=== PATIENT | female | born 1960 | race Hispanic/Latino ===

== ENCOUNTER 2017-04-23 05:21 | Inpatient (IN) | payer BC ==
--- NOTE | 2017-04-23 05:34 | ED PDOC ---
Arrival/HPI - History of Present Illness Time/Duration: 1 hour Symptom Onset: Sudden Symptom Course: Unchanged Context: Home <Maryjane Long - Last Filed: 04/25/17 07:24> <Wolf Uribe - Last Filed: 04/26/17 07:38> - General Chief Complaint: Shortness Of Breath Time Seen by Provider: 04/23/17 05:22 - History of Present Illness Narrative History of Present Illness (Text): 04/23/17 05:31 57 year old female with past medical history of Hypertension and Diabetes Diabetes presents for shortness of breath that began about an hour ago. Patient woke up with the shortness of breath. Patient states that she had a subjective fever yesterday. Patient denies having any CP, cough, abd pain, None /V/D/C, LE swelling or pain. Patient recently took a car trip to [place] and returned a few days ago. Patient denies having any hx of CAD, PE in past. She denies having any tobacco abuse, or other drug use. Meds: Zestril and Glyburide (Mercedes,Maryjane) Past Medical History - Provider Review Nursing Documentation Reviewed: Yes <Maryjane Long - Last Filed: 04/25/17 07:24> Family/Social History - Physician Review Nursing Documentation Reviewed: Yes Family/Social History: Unknown Family HX <MoizmattMaryjane - Last Filed: 04/25/17 07:24> Allergies/Home Meds <MoizMaryjane gutierrez - Last Filed: 04/25/17 07:24> <Wolf Uribe - Last Filed: 04/26/17 07:38> Allergies/Adverse Reactions: Allergies No Known Allergies Allergy (Verified 04/23/17 12:08) Home Medications: Home Meds Medication Instructions Recorded Confirmed Glimepiride [amaRYL] 4 mg PO BID 04/23/17 04/23/17 Lisinopril/Hydrochlorothiazide 1 tab PO DAILY 04/23/17 04/23/17 [Zestoretic 20-25 mg Tablet] Review of Systems - Review of Systems Constitutional: Fevers ENT: absent: Sore Throat, Rhinorrhea, Sinus Congestion Respiratory: SOB. absent: Normal, Cough, Sputum, Wheezing Cardiovascular: Normal. absent: Chest Pain, Palpitations, Edema, Calf Pain Gastrointestinal: Normal. absent: Abdominal Pain, Constipation, Diarrhea, Nausea, Vomiting Genitourinary Female: Normal. absent: Dysuria, Frequency Musculoskeletal: Normal. absent: Back Pain, Joint Swelling Skin: Normal. absent: Rash, Pruritis, Skin Lesions Neurological: Normal. absent: Headache, Dizziness, Focal Weakness Endocrine: Normal. absent: Diaphoresis, Polyuria Hemo/Lymphatic: Normal. absent: Adenopathy Psychiatric: Normal. absent: Anxiety, Depression <Maryjane Long - Last Filed: 04/25/17 07:24> Physical Exam Temperature: Afebrile Blood Pressure: Normal Pulse: Tachycardic Respiratory Rate: Tachypneic Appearance: Positive for: Uncomfortable Pain Distress: None Mental Status: Positive for: Alert and Oriented X 3 - Systems Exam Head: Present: Atraumatic, Normocephalic Mouth: Present: Moist Mucous Membranes Respiratory/Chest: Present: Clear to Auscultation, Good Air Exchange, Respiratory Distress. No: Accessory Muscle Use, Wheezes, Rales, Rhonchi Cardiovascular: Present: Regular Rate and Rhythm, Normal S1, S2. No: Murmurs, Rub, Gallop Abdomen: Present: Normal Bowel Sounds. No: Tenderness, Distention, Peritoneal Signs, Rebound, Guarding Neurological: Present: GCS=15, Speech Normal Skin: Present: Warm, Dry, Normal Color. No: Rashes Psychiatric: Present: Alert, Oriented x 3, Normal Insight, Normal Concentration <Maryjane Long - Last Filed: 04/25/17 07:24> Medical Decision Making - Lab Interpretations I have reviewed the lab results: Yes - EKG Interpretation Interpreted by ED Physician: Yes Type: 12 lead EKG <Maryjane Long - Last Filed: 04/25/17 07:24> - Lab Interpretations I have reviewed the lab results: Yes - EKG Interpretation Interpreted by ED Physician: Yes <Wolf Uribe - Last Filed: 04/26/17 07:38> ED Course and Treatment: 04/23/17 05:39 57 year old female presents with sudden onset of SOB likely 2/2 to PE vs. ACS Will check: CBC, CMP, cardiac isoenzymes, d dimer, urinalysis, EKG, chest x ray , LE US 04/25/17 07:25 Patient was signed out to Dr. Paige (Maryjane Long) In agreement with resident note, which includes further HPI details. Patient was seen and evaluated with resident, came up with plan and treatment together. 57 year old female with past medical history of hypertension and diabetes presents to the emergency department for shortness of breath that began prior to arrival. Patient woke up with shortness of breath and had a subjective fever yesterday. --EKG --Labs; BNP, Cardiac Enzymes, D-dimers --Chest X-ray --Urinalysis --US Duplex Bilaterial lower extremity pt most likely has pe , will start heparin case d/w dr rashid 04/23/17 05:53 04/26/17 07:37 (Wolf Uribe) - Lab Interpretations Narrative Lab Interpretation (Text): 04/23/17 06:46 D Dimer is noted to be 7.78 WBC 15 (Maryjane Long) Lab Results: 04/23/17 05:50 04/23/17 05:50 Lab Results 04/23/17 08:27: pO2 47, VBG pH 7.10 L*, VBG pCO2 58.0, VBG HCO3 18.0 L, VBG Total CO2 19.8 L, VBG O2 Sat (Calc) 78.0 H, VBG Base Excess -12.1 L, VBG Potassium 5.0, Glucose 716 H*, Lactate 7.2 H*, FiO2 21.0, Sodium 138.0, Chloride 85.0 L, Venous Blood Potassium 5.0 04/23/17 07:29: POC Glucose (mg/dL) > 500 H* 04/23/17 05:50: PT 11.2, INR 1.04, APTT 23.8 04/23/17 05:50: D-Dimer, Quantitative 7.78 H 04/23/17 05:50: Sodium 130 L, Potassium 3.4 L, Chloride 89 L, Carbon Dioxide 22 , Anion Gap 22 H, BUN 32 H, Creatinine 1.5 H, Est GFR ( Amer) 43, Est GFR (Non-Af Amer) 36, Random Glucose 632 H*, Calcium 8.8, Total Bilirubin 0.7, AST 112 H, ALT 81 H, Alkaline Phosphatase 83, Lactate Dehydrogenase 882 H, Total Creatine Kinase 59, Troponin I 0.30 H*, NT-Pro-B Natriuret Pep 4530 H, Total Protein 7.3, Albumin 3.5, Globulin 3.8, Albumin/Globulin Ratio 0.9 L 04/23/17 05:50: WBC 15.1 H, RBC 4.84, Hgb 14.9, Hct 42.7, MCV 88.2, MCH 30.8, MCHC 34.9, RDW 12.0, Plt Count 222, MPV 10.8 04/23/17 05:48: POC Glucose (mg/dL) 481 H* - RAD Interpretation Narrative RAD Interpretations (Text): 04/23/17 06:10 CXR: cardiology, no obvious effusions or atelectasis (Karim,Maryjane) Radiology Orders: 04/23/17 05:30 CHEST PORTABLE [RAD] Stat DUPLEX LOWER EXTRM VEIN BILAT [US] Stat 04/23/17 08:13 ANGIO CHEST PE PROTOCOL [CT] Stat 04/23/17 08:23 HEAD W/O CONTRAST [CT] Stat - EKG Interpretation EKG Interpretation (Text): 04/23/17 05:43 NSR HR 109, Normal axis, questionable ST elevation in V1-V3 (Karim,Maryjane) - Medication Orders Current Medication Orders: Acetaminophen (Tylenol 325mg Tab) 650 mg PO Q4H PRN PRN Reason: Pain, moderate (4-7) Last Admin: 04/25/17 21:45 Dose: 650 mg Re-Assess: MAR Pain/Vitals Document 04/25/17 22:45 AP (Rec: 04/25/17 23:56 AP [id number]) Pain Reassessment Is This A Pain ReAssessment? Yes Sleep Is patient sleeping during reassessment? Yes Heparin Sodium/Dextrose (Heparin 25,000 Units/250ml In D5w) 25,000 units in 250 mls @ 19.105 mls/hr IV .Q13H6M PRN; Protocol; 18 UNITS/KG/HR PRN Reason: ADJUST RATE PER PROTOCOL Last Admin: 04/26/17 04:53 Dose: 14 units/kg/hr, 14.86 mls/hr Insulin Human Regular (Humulin R Med) 0 units SC ACHS FIONA PRN Reason: Protocol Last Admin: 04/25/17 21:44 Dose: 2 units Lisinopril (Zestril) 2.5 mg PO DAILY [facility] Last Admin: 04/25/17 10:03 Dose: 2.5 mg Pantoprazole Sodium (Protonix Inj) 40 mg IVP Q12 FIONA Last Admin: 04/25/17 21:45 Dose: 40 mg Discontinued Medications Acetylcysteine (Acetylcysteine 20%) 3 ml PO STAT STA Stop: 04/23/17 08:15 Last Admin: 04/23/17 08:32 Dose: 3 ml Alteplase, Recombinant (Activase 100 Mg Inj) 9 mg IV ONCE ONE Stop: 04/23/17 09:03 Alteplase, Recombinant (Activase 100 Mg Inj) 81 mg IV ONCE ONE Stop: 04/23/17 09:03 Last Admin: 04/23/17 09:42 Dose: 81 mg Apixaban (Eliquis) 10 mg PO BID FIONA PRN Reason: Protocol Stop: 05/01/17 18:01 Last Admin: 04/24/17 19:25 Dose: Heparin Sodium (Porcine) (Heparin) 8,500 units 80 units/kg (8500 units) IV ONCE ONE PRN Reason: Protocol Stop: 04/23/17 07:15 Last Admin: 04/23/17 07:23 Dose: 8,500 units Heparin Sodium/Dextrose (Heparin 25,000 Units/250ml In D5w) 25,000 units in 250 mls @ 19.134 mls/hr IV .Q13H4M PRN; Protocol; 18 UNITS/KG/HR PRN Reason: ADJUST RATE PER PROTOCOL Last Admin: 04/24/17 03:34 Dose: 14 units/kg/hr, 14.882 mls/hr NOREPINEPHRINE BIT/0.9 % NACL (Levophed 4 Mg/ 250 Ml Ns Premixed) 4 mg in 250 mls @ 15 mls/hr IV .[id number] PRN; Protocol; 4 MCG/MIN PRN Reason: TITRATE PER MD ORDER Last Titration: 04/23/17 10:39 Dose: 8 mcg/min, 30 mls/hr Vancomycin HCl (Vancomycin 1gm) 1 gm in 250 mls @ 167 mls/hr IVPB STAT STA PRN Reason: Protocol Stop: 04/23/17 10:07 Last Admin: 04/23/17 10:29 Dose: 167 mls/hr Piperacillin Sod/Tazobactam Sod (Zosyn 3.375 In Ns 100ml) 100 mls @ 200 mls/hr IVPB STAT STA PRN Reason: Protocol Stop: 04/23/17 09:07 Last Admin: 04/23/17 10:04 Dose: 200 mls/hr Insulin Human Regular 100 (units/ Sodium Chloride) 100 mls @ 10 mls/hr IV .Q10H PRN; Protocol; 10 UNITS/HR PRN Reason: TITRATE PER MD ORDER Last Titration: 04/23/17 23:05 Dose: 0 units/hr, 0 mls/hr Insulin Detemir (Levemir) 10 unit SC ONCE ONE Stop: 04/23/17 23:46 Last Admin: 04/24/17 00:03 Dose: 10 unit Insulin Detemir (Levemir) 10 unit SC STAT ONE Stop: 04/24/17 08:48 Last Admin: 04/24/17 13:07 Dose: Insulin Detemir (Levemir) 10 unit SC ONCE ONE Stop: 04/24/17 12:29 Last Admin: 04/24/17 13:08 Dose: 10 unit Insulin Human Regular (Humulin R) 10 units IVP STAT STA Stop: 04/23/17 07:11 Last Admin: 04/23/17 07:40 Dose: 10 units Insulin Human Regular (Humulin R Med) 0 units SC ONCE ONE PRN Reason: Protocol Stop: 04/24/17 23:46 Last Admin: 04/25/17 00:04 Dose: 2 units Iodixanol (Visipaque 320 Mg/Ml 100 Ml) Confirm Administered Dose 100 ml IV .STK- MED ONE Stop: 04/23/17 08:16 Ondansetron HCl (Zofran Inj) 4 mg IVP STAT STA Stop: 04/23/17 05:55 Last Admin: 04/23/17 07:16 Dose: 4 mg Pneumococcal Polyvalent Vaccine (Pneumovax 23 Vaccine) 0.5 ml IM .ONCE ONE Stop: 04/23/17 14:56 Potassium Chloride (K-Dur 20 Meq Er Tab) 40 meq PO ONCE ONE Stop: 04/23/17 18:21 Last Admin: 04/23/17 18:39 Dose: 40 meq - PA / PERL DEVELOPER / Resident Statement / has reviewed & agrees with the documentation as recorded. / has examined the patient and agrees with the treatment plan. <Wolf Uribe - Last Filed: 04/26/17 07:38> Disposition/Present on Arrival - Present on Arrival Any Indicators Present on Arrival: No History of DVT/PE: No History of Uncontrolled Diabetes: No Urinary Catheter: No History of Decub. Ulcer: No - Disposition Have Diagnosis and Disposition been Completed?: Yes Disposition Time: 07:25 Patient Plan: Admission <Maryjane Long - Last Filed: 04/25/17 07:24> - Present on Arrival Any Indicators Present on Arrival: No - Disposition Have Diagnosis and Disposition been Completed?: Yes <Wolf Uribe - Last Filed: 04/26/17 07:38> - Disposition Diagnosis: Shortness of breath, Pulmonary embolism Disposition: HOSPITALIZED Patient Problems: Current Active Problems Problem Status Onset Shortness of breath Acute Condition: STABLE
[2017-04-23 06:20] LABS: HEMATOCRIT 42.7 % (36.0-48.0); MEAN CELL VOLUME 88.2 fL (80.0-105.0); MEAN CORPUSCULAR HEMOGLOBIN 30.8 pg (25.0-35.0); MEAN CORPUSCULAR HGB CONC 34.9 g/dl (31.0-37.0); MEAN PLATELET VOLUME 10.8 fl (7.0-11.0); WHITE BLOOD COUNT 15.1 10^3/ul (4.5-11.0)
[2017-04-23 06:35] LABS: ALB/GLOB RATIO 0.9 (1.1-1.8); BILIRUBIN,TOTAL 0.7 mg/dL (0.2-1.3); CALCIUM 8.8 mg/dL (8.4-10.5); POTASSIUM 3.4 mmol/L (3.6-5.0); TOTAL PROTEIN 7.3 g/dL (5.8-8.3)
[2017-04-23] MEDS ORDERED: Heparin 25,000units in D5W 25,000 UNITS/250 ML BAG IV PRN (06:48)
[2017-04-23 07:07] LABS: TROPONIN I 0.3 ng/mL
[2017-04-23] MEDS ORDERED: Insulin Regular 1 UNITS/0.01 ML ML IVP STA (07:10)
[2017-04-23] MEDS: Heparin 25,000units in D5W 25,000 UNITS/250 ML BAG IV PRN ×2 (07:26→14:28)
--- NOTE | 2017-04-23 07:31 | ED PDOC ---
Physical Exam Vital Signs Reviewed: Yes Vital Signs Temp Pulse Resp BP Pulse Ox 04/23/17 09:28 115 H 34 H 85/63 L 96 04/23/17 09:13 114 H 33 H 89/56 L 95 04/23/17 08:58 87/62 L 04/23/17 08:08 107 H 25 H 75/44 L 80 L 04/23/17 07:46 98.8 F 04/23/17 07:23 118 H 89/67 L 98 04/23/17 07:11 88/51 L 04/23/17 06:00 98.7 F 04/23/17 05:53 97.2 F L 123 H 28 H 101/72 94 L 04/23/17 05:40 109 H 24 99 Temperature: Afebrile Blood Pressure: Normal Pulse: Tachycardic Respiratory Rate: Normal Medical Decision Making ED Course and Treatment: 04/23/17 07:30pt endorsed to me pending labs, final dispo, imaging 1000: during emergency departcourse, pt became increasing hypotensive. concern for large pe. discussed risk benefit with pt of iv contast. pt consents to iv contrast. ct shows large pe. as pt hypotesnive, tachycardic, tachypneic, pt is candidate for tpa. pt consented for tpa. dr gardiner and dr justice bedside. accepted icu. after tpa, b/p improving, now 110 systolic. - Critical Care Critical Care Minutes: 60 minutes - Lab Interpretations Lab Results: 04/23/17 05:50 04/23/17 05:50 Lab Results 04/23/17 08:27: pO2 47, VBG pH 7.10 L*, VBG pCO2 58.0, VBG HCO3 18.0 L, VBG Total CO2 19.8 L, VBG O2 Sat (Calc) 78.0 H, VBG Base Excess -12.1 L, VBG Potassium 5.0, Glucose 716 H*, Lactate 7.2 H*, FiO2 21.0, Sodium 138.0, Chloride 85.0 L, Venous Blood Potassium 5.0 04/23/17 05:50: D-Dimer, Quantitative 7.78 H 04/23/17 05:50: Sodium 130 L, Potassium 3.4 L, Chloride 89 L, Carbon Dioxide 22 , Anion Gap 22 H, BUN 32 H, Creatinine 1.5 H, Est GFR ( Amer) 43, Est GFR (Non-Af Amer) 36, Random Glucose 632 H*, Calcium 8.8, Total Bilirubin 0.7, AST 112 H, ALT 81 H, Alkaline Phosphatase 83, Lactate Dehydrogenase 882 H, Total Creatine Kinase 59, Troponin I 0.30 H*, NT-Pro-B Natriuret Pep 4530 H, Total Protein 7.3, Albumin 3.5, Globulin 3.8, Albumin/Globulin Ratio 0.9 L 04/23/17 05:50: WBC 15.1 H, RBC 4.84, Hgb 14.9, Hct 42.7, MCV 88.2, MCH 30.8, MCHC 34.9, RDW 12.0, Plt Count 222, MPV 10.8 - RAD Interpretation Radiology Orders: 04/23/17 05:30 CHEST PORTABLE [RAD] Stat DUPLEX LOWER EXTRM VEIN BILAT [US] Stat 04/23/17 08:13 ANGIO CHEST PE PROTOCOL [CT] Stat 04/23/17 08:23 HEAD W/O CONTRAST [CT] Stat - Medication Orders Current Medication Orders: Heparin Sodium/Dextrose (Heparin 25,000 Units/250ml In D5w) 25,000 units in 250 mls @ 19.134 mls/hr IV .Q13H4M PRN; Protocol; 18 UNITS/KG/HR PRN Reason: ADJUST RATE PER PROTOCOL Last Admin: 04/23/17 07:26 Dose: 19.134 mls/hr NOREPINEPHRINE BIT/0.9 % NACL (Levophed 4 Mg/ 250 Ml Ns Premixed) 4 mg in 250 mls @ 15 mls/hr IV .[id number] PRN; Protocol; 4 MCG/MIN PRN Reason: TITRATE PER MD ORDER Insulin Human Regular 100 (units/ Sodium Chloride) 100 mls @ 10 mls/hr IV .Q10H PRN; Protocol; 10 UNITS/HR PRN Reason: TITRATE PER MD ORDER Last Admin: 04/23/17 09:53 Dose: 10 mls/hr Discontinued Medications Acetylcysteine (Acetylcysteine 20%) 3 ml PO STAT STA Stop: 04/23/17 08:15 Last Admin: 04/23/17 08:32 Dose: 3 ml Alteplase, Recombinant (Activase 100 Mg Inj) 9 mg IV ONCE ONE Stop: 04/23/17 09:03 Alteplase, Recombinant (Activase 100 Mg Inj) 81 mg IV ONCE ONE Stop: 04/23/17 09:03 Last Admin: 04/23/17 09:42 Dose: 81 mg Heparin Sodium (Porcine) (Heparin) 8,500 units 80 units/kg (8500 units) IV ONCE ONE PRN Reason: Protocol Stop: 04/23/17 07:15 Last Admin: 04/23/17 07:23 Dose: 8,500 units Vancomycin HCl (Vancomycin 1gm) 1 gm in 250 mls @ 167 mls/hr IVPB STAT STA PRN Reason: Protocol Stop: 04/23/17 10:07 Piperacillin Sod/Tazobactam Sod (Zosyn 3.375 In Ns 100ml) 100 mls @ 200 mls/hr IVPB STAT STA PRN Reason: Protocol Stop: 04/23/17 09:07 Last Admin: 04/23/17 10:04 Dose: 200 mls/hr Insulin Human Regular (Humulin R) 10 units IVP STAT STA Stop: 04/23/17 07:11 Last Admin: 04/23/17 07:40 Dose: 10 units Iodixanol (Visipaque 320 Mg/Ml 100 Ml) Confirm Administered Dose 100 ml IV .STK- MED ONE Stop: 04/23/17 08:16 Ondansetron HCl (Zofran Inj) 4 mg IVP STAT STA Stop: 04/23/17 05:55 Last Admin: 04/23/17 07:16 Dose: 4 mg Disposition/Present on Arrival - Present on Arrival Any Indicators Present on Arrival: No History of DVT/PE: No History of Uncontrolled Diabetes: No Urinary Catheter: No History of Decub. Ulcer: No History Surgical Site Infection Following: None - Disposition Have Diagnosis and Disposition been Completed?: Yes Diagnosis: Shortness of breath, Pulmonary embolism Disposition: HOSPITALIZED Disposition Time: 10:30 Patient Problems: Current Active Problems Problem Status Onset Pulmonary embolism Acute Shortness of breath Acute Condition: CRITICAL
[2017-04-23] MEDS ORDERED: Acetylcysteine 20% Inhal Soln (4ml) PO STA (08:14)
[2017-04-23] MEDS ORDERED: Iodixanol 320 MG/ML 100 ML BOTTLE IV ONE (08:15)
[2017-04-23] MEDS ORDERED: NOREPINEPHRINE BIT/0.9 % NACL 4 MG/250 ML BAG IV PRN (08:25)
[2017-04-23 08:31] LABS: VENOUS BLOOD GAS BASE EXCESS -12.1 mmol/L (0.0-2.0)
[2017-04-23] MEDS ORDERED: Piperacillin/Tazobact 3.375 gm 100 ML IVPB STA (08:38)
[2017-04-23] MEDS ORDERED: Insulin Regular 100 UNITS in Sodium Chloride 0.9% 99 ML IV PRN (08:38)
[2017-04-23] MEDS ORDERED: Vancomycin 1gm in NS 250ml 1 GM/250 ML BAG IVPB STA (08:38)
--- NOTE | 2017-04-23 08:57 | CT ---
PROCEDURE: CT HEAD WITHOUT CONTRAST. HISTORY: meek COMPARISON: None available. TECHNIQUE: Axial computed tomography images were obtained through the head/brain without intravenous contrast. Radiation dose: Total exam DLP = 803 mGy-cm. This CT exam was performed using one or more of the following dose reduction techniques: Automated exposure control, adjustment of the mA and/or kV according to patient size, and/or use of iterative reconstruction technique. FINDINGS: HEMORRHAGE: No intracranial hemorrhage. BRAIN: There is no mass effect or significant expansion of the ventricular sulcal and cisternal spaces appreciated this patient, with the midline brain anatomy appearing normal. No suspicious extra-axial fluid collection identified at this time. Artifact obscures the right-sided brainstem with remainder of the posterior fossa contents unremarkable. Consider follow-up CT or MRI. VENTRICLES: Unremarkable. No hydrocephalus. CALVARIUM: Unremarkable. PARANASAL SINUSES: Unremarkable as visualized. No significant inflammatory changes. MASTOID AIR CELLS: Unremarkable as visualized. No inflammatory changes. OTHER FINDINGS: None. IMPRESSION: No intra hemorrhage mass effect or hydrocephalus appreciated this time. Artifact from the skullbase obscures right side of the darline significantly. Follow-up MRI is advised to better evaluate the brainstem.
--- NOTE | 2017-04-23 09:02 | RAD ---
HISTORY: shortness of breath COMPARISON: No prior. FINDINGS: LUNGS: No active pulmonary disease. PLEURA: No significant pleural effusion identified, no pneumothorax apparent. CARDIOVASCULAR: Normal. OSSEOUS STRUCTURES: No significant abnormalities. VISUALIZED UPPER ABDOMEN: Normal. OTHER FINDINGS: None. IMPRESSION: No active disease.
--- NOTE | 2017-04-23 09:13 | CT ---
PROCEDURE: CT Chest with contrast (Pulmonary Angiogram) HISTORY: shortness of bretth, hypotensive COMPARISON: None available. TECHNIQUE: Axial computed tomography images were obtained of the chest in the pulmonary arterial phase of enhancement. Coronal and sagittal reformatted images were created and reviewed. Intravenous contrast dose: 100 cc of Visipaque Radiation dose: Total exam DLP = 743 mGy-cm. This CT exam was performed using one or more of the following dose reduction techniques: Automated exposure control, adjustment of the mA and/or kV according to patient size, and/or use of iterative reconstruction technique. FINDINGS: PULMONARY ARTERIES: Extensive pulmonary emboli are seen. Near occlusive emboli are seen in the left main pulmonary artery and left upper lobe. The clot fills the lower lobe branches. There is also a large clot in the proximal right pulmonary artery. There is enlargement of the right ventricle consistent with right ventricular strain. Findings were discussed with Dr. Paige at 9:10 a.m. AORTA: No acute findings. No thoracic aortic aneurysm. LUNGS: Unremarkable. No nodule, mass or pulmonary consolidation. PLEURAL SPACES: Unremarkable. No effusion or pneuomothorax. HEART: Unremarkable. No cardiomegaly. No significant pericardial effusion. LYMPH NODES: No lymphadenopathy. BONES, CHEST WALL: Unremarkable. No fracture or destructive lesion OTHER FINDINGS: Unremarkable. IMPRESSION: Extensive pulmonary emboli are seen. Near occlusive emboli are seen in the left main pulmonary artery and left upper lobe. The clot fills the lower lobe branches. There is also a large clot in the proximal right pulmonary artery. There is enlargement of the right ventricle consistent with right ventricular strain.
[2017-04-23 09:26] LABS: URINE BILIRUBIN NEGATIVE (NEGATIVE); URINE BLOOD LARGE (NEGATIVE); URINE GLUCOSE (UA) >=1000 mg/dL (NEGATIVE); URINE KETONE NEGATIVE (NEGATIVE); URINE LEUKOCYTE ESTERASE MODERATE Leu/uL (NEGATIVE); URINE PROTEIN >=300 mg/dL (<30 mg/dL); URINE UROBILINOGEN 0.2 E.U./dL (<1 E.U./dL)
[2017-04-23 09:33] LABS: URINE APPEARANCE TURBID (CLEAR); URINE COLOR YELLOW (YELLOW)
[2017-04-23 09:40] LABS: URINE RBC 0 - 2 /hpf (0-2); URINE WBC TNTC /hpf (0-6)
[2017-04-23 09:41] LABS: URINE BACTERIA SMALL (NEG)
[2017-04-23 11:41] LABS: INR 1.04 (0.93-1.08); PARTIAL THROMBOPLASTIN TIME 23.8 Seconds (23.7-30.8)
[2017-04-23 13:26] LABS: VENOUS BLOOD GAS BASE EXCESS -8.4 mmol/L (0.0-2.0); VENOUS BLOOD PH 7.27 (7.32-7.43)
--- NOTE | 2017-04-23 13:32 | CON ---
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 She presented to [facility] ER with new onset of shortness of breath that happened acutely early in the morning. Initially normotensive, her blood pressure precipitately dropped, later when she was in [facility] [place]. Bedside echocardiogram (point of care) revealed paradoxical interventricular septal motion as well as changes suggestive of right ventricular dilatation with decreased RV systolic function. Formal echocardiogram is pending. Her D-dimers were also elevated. The patient was suspected to have a massive PE and heparin was started. CAT scan with PE protocol was ordered. A liter of normal saline bolus was given and norepinephrine was ordered as well. The patient is short of breath, mildly diaphoretic and hypotensive. No nausea. No vomiting. No diarrhea. No constipation. PAST MEDICAL HISTORY: Hypertension. FAMILY HISTORY: Noncontributory. Specifically, there is no family history of clots or sudden cardiac . ALLERGIES: NKDA. SOCIAL HISTORY: No alcohol or illicit drug abuse. No tobacco smoking. The patient is not on any OCP. REVIEW OF SYSTEMS: Review of 12-point review of systems other than mentioned in history of present illness is negative. PHYSICAL EXAMINATION: VITAL SIGNS: Temperature 98.8, heart rate 118, blood pressure 89/67, oxygen saturation 94% to 98% on nasal cannula. HEENT: Head and neck atraumatic. LUNGS: Clear to auscultation bilaterally. HEART: Regular rate and rhythm. S1 and S2 normal. ABDOMEN: Soft, nontender, and nondistended. MUSCULOSKELETAL: No C/C/E. No tenderness. SKIN: Moist. PSYCHIATRIC: The patient is alert and oriented, in mild distress. NEUROLOGIC: The patient moves all extremities spontaneously. LABORATORY DATA: Sodium 130, potassium 3.4, chloride 89, carbon dioxide 22, BUN 32, creatinine 1.5, glucose 632. AST 112, ALT 81, troponin 0.3, D-dimer 7.78. WBC 15.1, hemoglobin 14.9, platelet count 222. MEDICATIONS AT HOME: Lisinopril, hydrochlorothiazide, Amaryl. IMAGING: EKG showed sinus tachycardia with atrioventricular block (? incomplete right bundle branch block). Chest x-ray; no active pulmonary disease. ASSESSMENT AND PLAN: This is a 57-year-old lady with high clinical probability of pulmonary embolism and thus obstructive shock due to pulmonary embolism. At present time, we will proceed with fluid bolus, heparin drip and norepinephrine pending CAT scan with PE protocol. Formal echocardiogram is pending; however, bedside [id number] ultrasound revealed some paradoxical interventricular septal motion with questionable right ventricular dilatation. If CAT scan were to confirm massive pulmonary embolism, consideration will be given to systemic tPA. Despite the fact that the patient has mildly elevated creatinine, with fluid and n-acetylcysteine given, the risk for MASTER will be minimized and benefits of doing CAT scan with PE protocol overweigh its risk. We will also do CAT scan of the head at the same time to rule out intracranial pathology in case if tPA needs to be given. Troponin leak may be present due to right ventricular strain. We will continue to trend troponin and BNP. We will start insulin drip, antibiotic septic workup. If CAT scan with PE protocol did not show pulmonary embolism, alternative causes for shock syndrome will be ruled out. The patient has leukocytosis and infection needs to be ruled out. As mentioned above, the patient will be on empiric antibiotics and septic workup will be initiated until infection is ruled out. Echocardiogram will allow to rule out other etiology for hypotension, even though [id number] ultrasound, there is no significant pericardial effusion and severe left ventricular systolic dysfunction. (Chest x-ray also did not reveal any pneumothorax). We will continue to trend lactic acid as well. Addendum: CT with PE protocol revelaed large clott in left main PA. tPA givem, heparin restarted afterward. Insulin drip was continued with BMP q4 hrs and accucheck q1h. Patient tolerated tPA well, shock resolved, no neuro deficit. Echo is pending ccm time 40 min Jhonny Martinez MD ISMAEL
[2017-04-23 14:55] VITALS: BMI 42.7
[2017-04-23] MEDS ORDERED: Pneumococcal 23-Valent Vaccine IM ONE (14:55)
--- NOTE | 2017-04-23 18:08 | CP.PCM.PN ---
<LISANDRO DE LEÓN - Last Filed: 04/23/17 19:46> Subjective - Date & Time of Evaluation Date of Evaluation: 04/23/17 Time of Evaluation: 07:30 - Subjective Subjective: Lisandro De León DO PGY1 - ICU Consult Note Patient is a 57 yo F with PMH of HTN and DM who presented to the ER complaining of SOB started suddently for the past hour. Admitted to prolonged immobilization driving on a [address] trip[address] Labs were significant for an elevated D-dimer, elevated troponin, hyperglycemia, glucosuria, and metabolic acidosis with an elevated anion gap. Bedside echo showed paradoxical intraventricular septum motion. On exam, she was hypotensive, tachycardic, and tachypnic. She was started on heparin drip for presumed PE and insulin drip for DKA. CTA showed a large PE. LE doppler pending. CT head showed no intracranial hemorrhage. She recieved systemic tPA with some resolution of her symptoms, and without complications. PMH: As above Meds: Lisinopril, HCTZ, Glimepiride Soc: Denies tob, etoh, illicits Fhx: Noncontributory All: NKDA ROS: +SOB, anxious, polyuria, thirst, fevers. Denies CP, abdominal pain, n/v/d/c , double vision, back pain, rash, HERRERA Objective - Vital Signs/Intake and Output Vital Signs (last 24 hours): Temp Pulse Resp BP Pulse Ox 97.5 F L 102 H 22 110/71 96 04/23/17 14:27 04/23/17 14:27 04/23/17 14:27 04/23/17 15:51 04/23/17 10:44 Intake and Output: 04/23/17 04/23/17 06:59 18:59 Intake Total 17 Balance 17 - Medications Medications: Current Medications Acetaminophen (Tylenol 325mg Tab) 650 mg PO Q4H PRN PRN Reason: Pain, moderate (4-7) Heparin Sodium/Dextrose (Heparin 25,000 Units/250ml In D5w) 25,000 units in 250 mls @ 19.134 mls/hr IV .Q13H4M PRN; Protocol; 18 UNITS/KG/HR PRN Reason: ADJUST RATE PER PROTOCOL Last Admin: 04/23/17 14:28 Dose: 18 units/kg/hr, 19.134 mls/hr NOREPINEPHRINE BIT/0.9 % NACL (Levophed 4 Mg/ 250 Ml Ns Premixed) 4 mg in 250 mls @ 15 mls/hr IV .[id number] PRN; Protocol; 4 MCG/MIN PRN Reason: TITRATE PER MD ORDER Last Titration: 04/23/17 10:39 Dose: 8 mcg/min, 30 mls/hr Insulin Human Regular 100 (units/ Sodium Chloride) 100 mls @ 10 mls/hr IV .Q10H PRN; Protocol; 10 UNITS/HR PRN Reason: TITRATE PER MD ORDER Last Titration: 04/23/17 16:00 Dose: 6 units/hr, 6 mls/hr - Labs Labs: PT 11.2 Seconds (9.9-11.8) 04/23/17 05:50 INR 1.04 (0.93-1.08) 04/23/17 05:50 APTT 60.6 Seconds (23.7-30.8) H 04/23/17 13:23 - Constitutional Appears: Non-toxic, In Acute Distress (mild) - Head Exam Head Exam: ATRAUMATIC, NORMOCEPHALIC - Eye Exam Eye Exam: EOMI, Normal appearance - ENT Exam ENT Exam: Mucous Membranes Moist - Respiratory Exam Respiratory Exam: Clear to Ausculation Bilateral. absent: Rales, Rhonchi, Wheezes - Cardiovascular Exam Cardiovascular Exam: Tachycardia, REGULAR RHYTHM, +S1, +S2 - GI/Abdominal Exam GI & Abdominal Exam: Soft, Normal Bowel Sounds. absent: Tenderness - Extremities Exam Extremities Exam: Normal Inspection - Neurological Exam Neurological Exam: Alert, Awake, Oriented x3 - Psychiatric Exam Psychiatric exam: Normal Affect, Normal Mood - Skin Skin Exam: Dry, Intact Assessment and Plan - Assessment and Plan (Free Text) Assessment: 57 yo F with PMH significant for DM and HTN admitted to ICU with DKA and s/p systemic tPA for large PE. Neuro: - AOx3, mentating normally - Continue to monitor CV: - Obstructive shock 2/2 Large PE based on CTA s/p thrombolysis with systemic tPA - On heparin drip - Hemodynamically stable, RRR - Echo pending, LE duplex pending - Maintain MAP >65 Pulm: - Currently CTA b/l, no respiratory distress, speaking full sentences, on O2 NC - On heparin drip for large PE s/p systemic tPA - Maintain O2 sat >90% GI: - NPO until AG closes - Ppx protonix Renal: - Monitor I & O - Monitor and replete lytes as needed Endo: - DKA; h/o DM, hold home antihypertensives - Continue insulin drip - Q1 accuchecks - Monitor BMP until anion gap closes - Will switch to SQ insulin when blood glucose is below 250 and then resume diet when AG closes - Monitor potassium and replete if it drops below 4 - Maintain euglycemia Hem/onc: - Anticoagulated on therapeutic heparin for PE - H/H stable, no active bleeding - Continue to monitor ID: - Afebrile, leukocytosis 15.1 - UA shows possible UTI, UCx pending - Got one dose of vanc and zosyn - Will continue to monitor Ppx: On heparin drip; Protonix Patient seen and discussed with senior resident and attending <Jhonny Martinez - Last Filed: 04/24/17 12:19> Objective - Vital Signs/Intake and Output Vital Signs (last 24 hours): Temp Pulse Resp BP Pulse Ox 98.4 F 98 H 19 95/61 L 95 04/24/17 04:21 04/24/17 07:00 04/24/17 07:00 04/24/17 07:00 04/24/17 07:00 Intake and Output: 04/24/17 04/24/17 06:59 18:59 Intake Total 1644 Output Total 1400 Balance 244 - Medications Medications: Current Medications Acetaminophen (Tylenol 325mg Tab) 650 mg PO Q4H PRN PRN Reason: Pain, moderate (4-7) Last Admin: 04/24/17 01:03 Dose: 650 mg Heparin Sodium/Dextrose (Heparin 25,000 Units/250ml In D5w) 25,000 units in 250 mls @ 19.134 mls/hr IV .Q13H4M PRN; Protocol; 18 UNITS/KG/HR PRN Reason: ADJUST RATE PER PROTOCOL Last Admin: 04/24/17 03:34 Dose: 14 units/kg/hr, 14.882 mls/hr NOREPINEPHRINE BIT/0.9 % NACL (Levophed 4 Mg/ 250 Ml Ns Premixed) 4 mg in 250 mls @ 15 mls/hr IV .[id number] PRN; Protocol; 4 MCG/MIN PRN Reason: TITRATE PER MD ORDER Last Titration: 04/23/17 10:39 Dose: 8 mcg/min, 30 mls/hr Insulin Human Regular 100 (units/ Sodium Chloride) 100 mls @ 10 mls/hr IV .Q10H PRN; Protocol; 10 UNITS/HR PRN Reason: TITRATE PER MD ORDER Last Titration: 04/23/17 23:05 Dose: 0 units/hr, 0 mls/hr Pantoprazole Sodium (Protonix Inj) 40 mg IVP Q12 FIONA Last Admin: 04/23/17 21:14 Dose: 40 mg - Labs Labs: 04/24/17 05:50 04/24/17 05:50 PT 13.5 Seconds (9.9-11.8) H 04/24/17 05:50 INR 1.25 (0.93-1.08) H 04/24/17 05:50 APTT 78.7 Seconds (23.7-30.8) H* 04/24/17 05:50 Attending/Attestation - Attestation I have personally seen and examined this patient.: Yes I have fully participated in the care of the patient.: Yes I have reviewed all pertinent clinical information, including history, physical exam and plan: Yes Notes (Text): 04/24/17 07:[address] Martinez's note
[2017-04-23] MEDS ORDERED: Potassium Chloride 20 mEq ER Tab PO ONE (18:20)
[2017-04-23 19:26] LABS: VENOUS BLOOD GAS BASE EXCESS -1.5 mmol/L (0.0-2.0)
[2017-04-23 19:33] LABS: CALCIUM 8.2 mg/dL (8.4-10.5); POTASSIUM 3.6 mmol/L (3.6-5.0)
[2017-04-23 22:51] LABS: VENOUS BLOOD GAS BASE EXCESS -2.3 mmol/L (0.0-2.0); VENOUS BLOOD PH 7.38 (7.32-7.43)
[2017-04-23] MEDS ORDERED: Insulin Detemir 100 units/ml Vial (Levemir) SC ONE (23:45)
[2017-04-24] MEDS: Heparin 25,000units in D5W 25,000 UNITS/250 ML BAG IV PRN ×3 (03:34→21:16)
[2017-04-24 06:52] LABS: ADD MANUAL DIFF? NO
[2017-04-24 07:10] LABS: BASO # 0.03 K/mm3 (0.0-2.0); BASO % 0.2 % (0.0-3.0); EOS # 0.3 (0.0-0.7); EOS % 1.9 % (1.5-5.0); GRAN % 65.6 % (50.0-68.0); HEMATOCRIT 36.3 % (36.0-48.0); LYMPH # 3.4 (1.2-3.4); MEAN CELL VOLUME 86.4 fl (80.0-105.0); MEAN CORPUSCULAR HEMOGLOBIN 30.2 pg (25.0-35.0); MEAN PLATELET VOLUME 10.1 fl (7.0-11.0); MONO # 0.8 (0.1-0.6); MONO % 6.3 % (1.0-6.0); PLATELET COUNT 169 10^3/uL (120.0-450.0); RED CELL DISTRIBUTION WIDTH 12.1 % (11.5-14.5); WHITE BLOOD COUNT 13.3 10^3/ul (4.5-11.0)
[2017-04-24 07:23] LABS: ALB/GLOB RATIO 0.9 (1.1-1.8); ALKALINE PHOSPHATASE 73 U/L (38-133); ALT/SGPT 107 U/L (7-56); AST/SGOT 92 U/L (15-39); BILIRUBIN,TOTAL 0.6 mg/dL (0.2-1.3); BLOOD UREA NITROGEN 28 mg/dL (7-21); CALCIUM 8.1 mg/dL (8.4-10.5); CARBON DIOXIDE 24 mmol/L (21-33); CHLORIDE 101 mmol/L (98-107); GFR AFRICAN-AMERICAN > 60; GLUCOSE,RANDOM 230 mg/dL (70-110); POTASSIUM 3.8 mmol/L (3.6-5.0); SODIUM 135 mmol/L (132-148); TOTAL PROTEIN 6.5 g/dL (5.8-8.3)
[2017-04-24 07:24] LABS: INR 1.25 (0.93-1.08)
[2017-04-24 07:26] LABS: PARTIAL THROMBOPLASTIN TIME 78.7 Seconds (23.7-30.8)
--- NOTE | 2017-04-24 08:20 | HP ---
HISTORY OF PRESENT ILLNESS: The patient is a 57-year-old female, who presented to the emergency room complaining of some shortness of breath that happened acutely early in the morning. The patient had been driving a car from [place] for about 14 hours prior to her arrival in [place]. While in the emergency room, the patient became more short of breath and dropped her blood pressure with a systolic in the mid 70s. She does have a history of prior hypertension. PAST MEDICAL HISTORY: Hypertension. FAMILY HISTORY: Noncontributory. ALLERGIES: NO KNOWN ALLERGIES. SOCIAL HISTORY: The patient does not smoke or use illicit drugs. PHYSICAL EXAMINATION VITAL SIGNS: Pulse rate of 115, blood pressure 85/63 with subsequently drop in the systolic of 77, respiratory rate of 34 with an O2 saturation of 96% on nasal canal. HEENT: PERRLA. EOMI. No icterus is present. NECK: Supple with a full range of motion. There is no jugular venous distention. LUNGS: Clear to auscultation and percussion bilaterally. HEART: Regular rate and rhythm. No murmurs, rubs, or gallops. ABDOMEN: Soft. It is nontender. There is no organomegaly. Bowel sounds are normoactive. EXTREMITIES: The extremities show no deformities or edema. NEUROLOGICAL: The patient is intact. LABORATORY DATA: The patient was sent for a CAT scan of the chest emergently and this in fact revealed a large pulmonary embolus. CURRENT DIAGNOSES: 1. Pulmonary embolism. 2. Hypertension. PLAN: We will stabilize the patient. Have Dr. Florian Nguyễn, cardiology see the patient for further management. Obi Nguyen MD
[2017-04-24] MEDS ORDERED: Insulin Detemir 100 units/ml Vial (Levemir) SC ONE ×2 (08:47→12:28)
--- NOTE | 2017-04-24 13:33 | CON ---
DATE: 04/24/2017 HISTORY OF PRESENT ILLNESS: The patient is a 57-year-old woman who presents with marked dyspnea. She was transiently hypotensive in the emergency room. She was found to have an acute pulmonary embolism. PAST MEDICAL HISTORY: Notable for diabetes mellitus and hypertension. Her acute pulmonary embolism was accompanied by swelling of the lower extremities after a long car ride down to [place]. No previous cardiac history. 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 FAMILY HISTORY: Notable for an uncle with history of cardiac disease. REVIEW OF SYSTEMS: A 14-point review of systems was reviewed. No angina noted. Swelling of one lower extremity was noted and dyspnea has improved since emergency room. In the emergency room, the patient received thrombolytics and is currently on IV heparin. She was found to have borderline elevated troponin which I was called to see. PHYSICAL EXAMINATION: VITAL SIGNS: Blood pressure is 124/68 with heart rate of 100. NECK: Negative JVD. LUNGS: Without rales. HEART: Reveal S1, S2. EXTREMITIES: Without edema. EKG shows sinus tachycardia with an incomplete left bundle-branch block. LABORATORY DATA: Reveal BUN and creatinine that are unremarkable. LFTs are mildly elevated. The hemoglobin is 12.7 with a troponin of 0.30. IMPRESSION: 1. Acute pulmonary embolism. 2. Transient hypotension which was treated with thrombolytics and as well as pressors. 3. Diabetes mellitus. 4. Hypertension. 5. Dyspnea. 6. The mildly elevated troponins are likely from her acute pulmonary embolism. Given these findings, there is no cause for acute cardiac intervention at this time. We will obtain an echocardiogram to review her LV function as well as her right ventricular pressures. I agree with aggressive IV hydration. Florian Nguyễn MD
--- NOTE | 2017-04-24 16:18 | CP.PCM.PN ---
<LISANDRO DE LEÓN - Last Filed: 04/24/17 16:13> Subjective - Date & Time of Evaluation Date of Evaluation: 04/24/17 Time of Evaluation: 06:45 - Subjective Subjective: Lisandro De León DO PGY1 - ICU Progress Note Patient seen and examined at bedside. Overnight, she was switched to SQ insulin , now off insulin drip. Nurses also reported a persistent vaginal bleed, mild. Patient is seen resting comfortably, breathing comfortably and speaking in full sentences on O2 by nasal cannula. Denies CP, SOB, cough, wheeze, n/v/d/c, abdominal pain, leg pain. Objective - Vital Signs/Intake and Output Vital Signs (last 24 hours): Temp Pulse Resp BP Pulse Ox 98.4 F 98 H 19 95/61 L 95 04/24/17 04:21 04/24/17 07:00 04/24/17 07:00 04/24/17 07:00 04/24/17 07:00 Intake and Output: 04/24/17 04/24/17 06:59 18:59 Intake Total 1644 Output Total 1400 Balance 244 - Medications Medications: Current Medications Acetaminophen (Tylenol 325mg Tab) 650 mg PO Q4H PRN PRN Reason: Pain, moderate (4-7) Last Admin: 04/24/17 15:16 Dose: 650 mg Apixaban (Eliquis) 10 mg PO BID FIONA PRN Reason: Protocol Stop: 05/01/17 18:01 NOREPINEPHRINE BIT/0.9 % NACL (Levophed 4 Mg/ 250 Ml Ns Premixed) 4 mg in 250 mls @ 15 mls/hr IV .[id number] PRN; Protocol; 4 MCG/MIN PRN Reason: TITRATE PER MD ORDER Last Titration: 04/23/17 10:39 Dose: 8 mcg/min, 30 mls/hr Insulin Human Regular 100 (units/ Sodium Chloride) 100 mls @ 10 mls/hr IV .Q10H PRN; Protocol; 10 UNITS/HR PRN Reason: TITRATE PER MD ORDER Last Titration: 04/23/17 23:05 Dose: 0 units/hr, 0 mls/hr Pantoprazole Sodium (Protonix Inj) 40 mg IVP Q12 FIONA Last Admin: 04/24/17 12:14 Dose: 40 mg - Labs Labs: 04/24/17 05:50 04/24/17 05:50 PT 13.5 Seconds (9.9-11.8) H 04/24/17 05:50 INR 1.25 (0.93-1.08) H 04/24/17 05:50 APTT 59.5 Seconds (23.7-30.8) H 04/24/17 13:52 - Constitutional Appears: Non-toxic, No Acute Distress - Head Exam Head Exam: ATRAUMATIC, NORMOCEPHALIC - Eye Exam Eye Exam: EOMI, Normal appearance, PERRL - ENT Exam ENT Exam: Mucous Membranes Moist, Normal Exam - Neck Exam Neck Exam: Full ROM. absent: Lymphadenopathy, Meningismus - Respiratory Exam Respiratory Exam: Clear to Ausculation Bilateral. absent: Rales, Rhonchi, Wheezes - Cardiovascular Exam Cardiovascular Exam: RRR, +S1, +S2 - GI/Abdominal Exam GI & Abdominal Exam: Soft, Normal Bowel Sounds. absent: Tenderness - Extremities Exam Extremities Exam: Pedal Edema (Trace). absent: Calf Tenderness - Neurological Exam Neurological Exam: Alert, Awake, Oriented x3 Neuro motor strength exam: Left Upper Extremity: 5, Right Upper Extremity: 5, Left Lower Extremity: 5, Right Lower Extremity: 5 - Psychiatric Exam Psychiatric exam: Normal Affect, Normal Mood - Skin Skin Exam: Dry, Intact Additional comments: Superficial thrombophlebitis (ecchymosis) noted on left distal forearm. Assessment and Plan - Assessment and Plan (Free Text) Assessment: 57 yo F with PMH significant for DM and HTN admitted to ICU with DKA and s/p systemic tPA for large PE. Currently stable, DKA resolved, shock state resolved. Will transfer today. Neuro: - AOx3, mentating normally - Continue to monitor CV: - Previously obstructive shock 2/2 Large PE (provoked) based on CTA s/p thrombolysis with systemic tPA - will d/c heparin drip and start PO anticoagulation with eliquis 10mg x7d then 5mg x3-6 months - Hemodynamically stable, RRR - Echo complete, read pending. LE duplex complete, read pending - Maintain MAP >65 Pulm: - Currently CTA b/l, no respiratory distress, speaking full sentences, on O2 NC - Complete heparin drip for 12 hours then switch to PO eliquis, s/p systemic tPA - Maintain O2 sat >90% GI: - AG closed, start heart healthy, carb consistent diet - Ppx protonix Renal: - Monitor I & O - Monitor and replete lytes as needed Endo: - Previously DKA, gap closed overnight; h/o DM, hold home antihypertensives - Off insulin drip, start SQ insulin and sliding scale - ACHS accuchecks - Maintain euglycemia Hem/onc: - Anticoagulated on therapeutic heparin for PE, will switch to PO eliquis - H/H dropped, though still stable and wnl. Possibly due to dilutional effect in addition to active vaginal bleed, which itself is likely 2/2 to anticoagulation s/p tPA and on heparin drip. No hematuria in [place]. Will sign this out to primary team - Continue to monitor ID: - Afebrile, leukocytosis 13.3, improved since yesterday, likely stress response. - UA shows possible UTI, UCx pending - Got one dose of vanc and zosyn - Will continue to monitor Ppx: On heparin drip; Protonix Will transfer today Patient seen and discussed with senior resident and attending <Jhonny Martinez - Last Filed: 04/25/17 11:16> Objective - Vital Signs/Intake and Output Vital Signs (last 24 hours): Temp Pulse Resp BP Pulse Ox 97.9 F 99 H 17 113/71 99 04/25/17 04:00 04/25/17 10:03 04/25/17 06:00 04/25/17 10:03 04/25/17 06:00 Intake and Output: 04/25/17 04/25/17 06:59 18:59 Intake Total 1050 Output Total 960 Balance 90 - Medications Medications: Current Medications Acetaminophen (Tylenol 325mg Tab) 650 mg PO Q4H PRN PRN Reason: Pain, moderate (4-7) Last Admin: 04/25/17 03:58 Dose: 650 mg NOREPINEPHRINE BIT/0.9 % NACL (Levophed 4 Mg/ 250 Ml Ns Premixed) 4 mg in 250 mls @ 15 mls/hr IV .[id number] PRN; Protocol; 4 MCG/MIN PRN Reason: TITRATE PER MD ORDER Last Titration: 04/23/17 10:39 Dose: 8 mcg/min, 30 mls/hr Heparin Sodium/Dextrose (Heparin 25,000 Units/250ml In D5w) 25,000 units in 250 mls @ 19.105 mls/hr IV .Q13H6M PRN; Protocol; 18 UNITS/KG/HR PRN Reason: ADJUST RATE PER PROTOCOL Last Admin: 04/24/17 21:16 Dose: 14 units/kg/hr, 14.86 mls/hr Insulin Human Regular (Humulin R Med) 0 units SC ACHS FIONA PRN Reason: Protocol Last Admin: 04/25/17 10:04 Dose: 5 units Lisinopril (Zestril) 2.5 mg PO DAILY [facility] Last Admin: 04/25/17 10:03 Dose: 2.5 mg Pantoprazole Sodium (Protonix Inj) 40 mg IVP Q12 [facility] Last Admin: 04/25/17 10:04 Dose: 40 mg - Labs Labs: 04/25/17 06:00 04/25/17 06:00 PT 12.5 Seconds (9.9-11.8) H 04/25/17 06:00 INR 1.16 (0.93-1.08) H 04/25/17 06:00 APTT 74.9 Seconds (23.7-30.8) H* 04/25/17 06:00 Attending/Attestation - Attestation I have personally seen and examined this patient.: Yes I have fully participated in the care of the patient.: Yes I have reviewed all pertinent clinical information, including history, physical exam and plan: Yes Notes (Text): 04/25/17 11:11 57 yo female with resolved obstructive shock due to massive PE, s/p tPA and now on therapeutic heparin drip. Starting DOA was held as patient has mild vaginal bleeding (it would be more difficult to reverse DOA, should bleeding worsened). Nevertheless, benefits of continuing TAC with heparin overweigh risks in my opinion at present time. If mild vaginal bleeding continues or worsened on heparin, I would recommend getting hematology service on board for their opinion as to risk/benefits of TAC in this situation. Otherwise patient is hemodynamically and respiratory relatively stable. Ok to downgrade to [facility] ccm time 40 min
--- NOTE | 2017-04-24 16:33 | CARD ---
APPROVED REPORT EXAM: Two-dimensional and M-mode echocardiogram with Doppler and color Doppler. INDICATION PE/ EVALUATE RV AND RVSP 2D DIMENSIONS Left Atrium (2D)4.3 (1.6-4.0cm)IVSd1.1 (0.7-1.1cm) LVDd6.2 (3.9-5.9cm)PWd1.0 (0.7-1.1cm) LVDs5.7 (2.5-4.0cm)FS (%) 7.6 % LVEF (%)16.3 (>50%) M-Mode DIMENSIONS Aortic Root3.10 (2.2-3.7cm)Aortic Cusp Exc.1.50 (1.5-2.0cm) Aortic Valve AoV Peak Oitfoquu472.0cm/Trinh Peak GR.8mmHg Mitral Valve E/A ratio0.0 TDI E/Lateral E'0.0E/Medial E'0.0 Pulmonary Valve PV Peak Gjfevdbf42.6cm/sPV Peak Grad.2mmHg Tricuspid Valve TR Peak [id number]/sRAP [id number] Peak Gr.34mmHg [id number] LEFT VENTRICLE The Left Ventricle is mildly dilated. The ejection fraction is severely impaired. ATRIA The left atrium size is normal. The right atrium size is normal. AORTIC VALVE The aortic valve is thickened but opens well. There is mild aortic regurgitation. MITRAL VALVE The mitral valve is calcified but opens well. Mitral regurgitation is mild TRICUSPID VALVE The tricuspid valve leaflets are thickened , but open well. There is mild to moderate tricuspid regurgitation. There is mild to moderate pulmonary hypertension. PULMONIC VALVE The pulmonic valve is mildly thickened. PERICARDIAL EFFUSION There is no pericardial effusion. <Conclusion> Severely hypokinetic LV Mildly dilated LV Calcified MV Mild AI and MR Mild to moderate TR Moderate pulmonary hypertension
--- NOTE | 2017-04-24 18:19 | PN ---
LOCATION: The patient is in 128 bed 2. She states, she feels much more comfortable this morning. The shortness of breath has abated. There have been no acute eventual overnight. PHYSICAL EXAMINATION VITAL SIGNS: Afebrile, pulse rate of 97, respiratory rate of 18, O2 sat of 100% on nasal cannula. HEENT: Unremarkable. NECK: Supple with a range of motion. No bruits appreciated. LUNGS: Clear bilaterally. HEART: Regular rate and rhythm. No murmurs, rubs, or gallops. ABDOMEN: Soft. It is nontender. Bowel sounds are normoactive. There is no organomegaly. EXTREMITIES: Show no deformities and no edema. NEUROLOGICAL: There are no focal deficits. LABORATORY DATA: WBC of 13.3. Chemistry is normal with the exception of BUN of 28 and sugar of 198. The patient will be transferred to the floor. Eliquis will be started. The insurance coverage will continue, and the patient will be seen by Dr. Florian Nguyễn. Obi Nguyen MD
--- NOTE | 2017-04-24 21:17 | US ---
HISTORY: Leg pain and swelling. Evaluate for DVT PHYSICIAN(S): Florian Zhang MD. TECHNIQUE: Duplex sonography and color-flow Doppler with graded compression were used to evaluate the deep venous systems of both lower extremities. FINDINGS: The visualized deep venous systems of both lower extremities are sonographically normal and compressible. Normal wave forms and augmentation are seen. There is no sonographic evidence for deep venous thrombosis in the visualized segments of both lower extremities. IMPRESSION: No sonographic evidence for deep venous thrombosis in the visualized segments of both lower extremities.
[2017-04-24] MEDS ORDERED: Insulin Reg-MEDIUM-Coverage SC ONE (23:45)
--- NOTE | 2017-04-25 00:02 | CARD ---
APPROVED REPORT EKG Measurement Heart [id number] <Conclusion> Sinus tachycardia Nonspecific intraventricular block Cannot rule out Septal infarct, age undetermined Possible Lateral infarct, age undetermined Abnormal ECG
[2017-04-25 06:40] LABS: ADD MANUAL DIFF? NO
[2017-04-25 07:05] LABS: BASO # 0.02 K/mm3 (0.0-2.0); BASO % 0.2 % (0.0-3.0); EOS # 0.2 (0.0-0.7); EOS % 2.1 % (1.5-5.0); GRAN # 6.23 (1.4-6.5); GRAN % 64.9 % (50.0-68.0); HEMATOCRIT 33.2 % (36.0-48.0); LYMPH # 2.3 (1.2-3.4); LYMPH % 24.1 % (22.0-35.0); MEAN CELL VOLUME 87.4 fl (80.0-105.0); MEAN CORPUSCULAR HEMOGLOBIN 30.5 pg (25.0-35.0); MEAN CORPUSCULAR HGB CONC 34.9 g/dl (31.0-37.0); MEAN PLATELET VOLUME 9.9 fl (7.0-11.0); MONO # 0.8 (0.1-0.6); MONO % 8.7 % (1.0-6.0); PLATELET COUNT 169 10^3/uL (120.0-450.0); RED CELL DISTRIBUTION WIDTH 12.2 % (11.5-14.5); WHITE BLOOD COUNT 9.6 10^3/ul (4.5-11.0)
[2017-04-25 07:07] LABS: ALB/GLOB RATIO 0.9 (1.1-1.8); ALKALINE PHOSPHATASE 72 U/L (38-133); ALT/SGPT 80 U/L (7-56); AST/SGOT 42 U/L (15-39); BILIRUBIN,TOTAL 0.5 mg/dL (0.2-1.3); BLOOD UREA NITROGEN 23 mg/dL (7-21); CALCIUM 8.2 mg/dL (8.4-10.5); CARBON DIOXIDE 25 mmol/L (21-33); CHLORIDE 99 mmol/L (98-107); GFR AFRICAN-AMERICAN > 60; GLUCOSE,RANDOM 280 mg/dL (70-110); SODIUM 132 mmol/L (132-148); TOTAL PROTEIN 6.4 g/dL (5.8-8.3)
[2017-04-25 07:29] LABS: INR 1.16 (0.93-1.08)
[2017-04-25 07:37] LABS: PARTIAL THROMBOPLASTIN TIME 74.9 Seconds (23.7-30.8)
[2017-04-25] MEDS: Insulin Reg-MEDIUM-Coverage SC SCH ×4 (10:04→21:44)
--- NOTE | 2017-04-25 10:47 | PN ---
DATE: 04/25/2017 CARDIOLOGY FOLLOWUP NOTE SUBJECTIVE: The patient's breathing is better. PHYSICAL EXAMINATION VITAL SIGNS: Blood pressure is 108/71 and heart rate is in the 90s. NECK: Negative JVD. LUNGS: Without rales. HEART: Reveal S1 and S2. EXTREMITIES: Without edema. LABORATORY DATA: Hemoglobin is 11.8. Chemistries are essentially unchanged. IMPRESSION 1. Acute pulmonary embolism. 2. Severe dilated cardiomyopathy. 3. Dyspnea. 4. Diabetes mellitus. 5. Obesity. PLAN: Given these findings, we will start the patient on HIRAM inhibitor and eventually on a beta mohamud. At some point, the patient will require investigation to a cardiomyopathy once her pulmonary embolism is under control. Florian Nguyễn MD
[2017-04-25] MEDS: Heparin 25,000units in D5W 25,000 UNITS/250 ML BAG IV PRN (13:31)
--- NOTE | 2017-04-25 14:07 | PN ---
DATE: SUBJECTIVE: The patient is currently in ICU 128 bed 2. There have been no acute events overnight. She does complain of some vaginal bleeding. PHYSICAL EXAMINATION VITAL SIGNS: Temperature are afebrile, pulse rate of 91, blood pressure 110/72, respiratory rate of 16, O2 saturation of 99% on room air. HEENT: PERRLA. EOMI. There is no icterus present. NECK: Supple with full range of motion. No jugular veins distention or bruits are appreciated. LUNGS: Clear to auscultation and percussion bilateral. HEART: Regular, rate, and rhythm. ABDOMEN: Soft. It is nontender. There is no organomegaly. Bowel sounds are normoactive. EXTREMITIES: Showed no deformities or no edema. NEURO: There are no focal motor deficits. LABORATORY DATA: WBC of 9.6, hemoglobin and hematocrit of 11.6 and 33.2. PTT of 74.9. Chemistry is essentially normal, glucose of 255. AST and ALT are 42 and 80. Echocardiogram shows a reduced ejection fraction to probably less than 20%. Discussed this with Dr. Nguyễn. We will continue current regimen. IMPRESSION: At this time: 1. Large pulmonary embolism. 2. Congestive heart failure. 3. Hypertension. Obi Nguyen MD
[2017-04-26] MEDS: Heparin 25,000units in D5W 25,000 UNITS/250 ML BAG IV PRN ×2 (04:53→21:59)
[2017-04-26 06:30] LABS: ADD MANUAL DIFF? NO
[2017-04-26 06:40] LABS: BASO # 0.03 K/mm3 (0.0-2.0); BASO % 0.4 % (0.0-3.0); EOS # 0.2 (0.0-0.7); EOS % 2.2 % (1.5-5.0); GRAN # 4.69 (1.4-6.5); HEMATOCRIT 29.5 % (36.0-48.0); LYMPH # 2.7 (1.2-3.4); LYMPH % 32.4 % (22.0-35.0); MEAN CELL VOLUME 87.8 fl (80.0-105.0); MEAN CORPUSCULAR HEMOGLOBIN 29.8 pg (25.0-35.0); MEAN CORPUSCULAR HGB CONC 33.9 g/dl (31.0-37.0); MEAN PLATELET VOLUME 9.8 fl (7.0-11.0); MONO # 0.7 (0.1-0.6); PLATELET COUNT 186 10^3/uL (120.0-450.0); RED CELL DISTRIBUTION WIDTH 12.2 % (11.5-14.5); WHITE BLOOD COUNT 8.2 10^3/ul (4.5-11.0)
[2017-04-26 07:01] LABS: ALB/GLOB RATIO 0.9 (1.1-1.8); ALKALINE PHOSPHATASE 65 U/L (38-133); ALT/SGPT 59 U/L (7-56); AST/SGOT 25 U/L (15-39); BILIRUBIN,TOTAL 0.5 mg/dL (0.2-1.3); BLOOD UREA NITROGEN 18 mg/dL (7-21); CALCIUM 8.4 mg/dL (8.4-10.5); CARBON DIOXIDE 26 mmol/L (21-33); CHLORIDE 98 mmol/L (98-107); GFR AFRICAN-AMERICAN > 60; GLUCOSE,RANDOM 263 mg/dL (70-110); INR 1.12 (0.93-1.08); POTASSIUM 3.9 mmol/L (3.6-5.0); SODIUM 133 mmol/L (132-148); TOTAL PROTEIN 6.2 g/dL (5.8-8.3)
[2017-04-26 07:04] LABS: PARTIAL THROMBOPLASTIN TIME 73.7 Seconds (23.7-30.8)
[2017-04-26] MEDS: Insulin Reg-MEDIUM-Coverage SC SCH ×4 (08:25→22:06)
--- NOTE | 2017-04-26 11:33 | PN ---
SUBJECTIVE: The patient is now in telemetry in room 263, bed 2. There have been no acute events overnight. She does complain of some vaginal bleeding. PHYSICAL EXAMINATION VITAL SIGNS: Temperature 98.4, pulse rate of 91, blood pressure 115/74, respiratory rate of 20 with an O2 saturation of 100% on a nasal cannula. HEENT: PERRLA. EOMI. NECK: Full range of motion. No bruits or jugular veins distention appreciated. LUNGS: Clear to auscultation and percussion bilaterally. HEART: Regular, rate, and rhythm. No murmurs, rubs or gallops. ABDOMEN: Soft and nontender. Bowel sounds are normoactive. EXTREMITIES: Show deformities and no edema. NEURO: There are no focal motor deficits. LABORATORY DATA: WBC of 8.2, H and H is 10.0 and 29.5. Chemistry within normal limits with the exception of a glucose of 263. We will continue the patient on heparin. Gynecology consult has been ordered to find the reason for the bleeding. We will continue current regimen. Obi Nguyen MD
--- NOTE | 2017-04-26 12:36 | PN ---
DATE: 04/26/2017 HISTORY: The patient is comfortable in bed, no shortness of breath, no chest pain. PHYSICAL EXAMINATION VITAL SIGNS: Blood pressure is 115/74, the heart rate is in the 90s. NECK: Negative JVP. LUNGS: Without rales. HEART: S1, S2. EXTREMITIES: Without edema. LABORATORY DATA: Hemoglobin is 10, PTT is 73. Chemistries, glucose 263. IMPRESSION: 1. Acute pulmonary embolism. 2. Vaginal bleeding yesterday. 3. Diabetes mellitus. 4. Severe dilated cardiomyopathy. Given these findings, the patient will need a LABORATORY GENETICIST evaluation before fully anticoagulating her. We will increase her lisinopril to 5 mg daily. We will begin ambulation. Florian Nguyễn MD
--- NOTE | 2017-04-26 13:20 | US ---
HISTORY: vaginal bleed COMPARISON: None available. TECHNIQUE: Transvaginal FINDINGS: UTERUS: Measures 11.8 x 5.4 x 5.9 cm. No fibroid or other mass lesion seen. ENDOMETRIUM: Measures 16 mm in diameter. This is markedly abnormal in a 57-year-old postmenopausal woman. Further evaluation is advised. CERVIX: No cervical abnormality identified. RIGHT OVARY: Not visualized LEFT OVARY: Not visualized FREE FLUID: Small amount OTHER FINDINGS: None. IMPRESSION: Abnormally thickened endometrium in a postmenopausal woman. This is concerning for endometrial neoplasm or endometrial hyperplasia. Further evaluation is advised. Nonspecific small amount of fluid noted in cul-de-sac.
[2017-04-27 06:39] LABS: ADD MANUAL DIFF? NO
[2017-04-27 06:54] LABS: ALB/GLOB RATIO 0.9 (1.1-1.8); ALKALINE PHOSPHATASE 64 U/L (38-133); ALT/SGPT 53 U/L (7-56); AST/SGOT 33 U/L (15-39); BILIRUBIN,TOTAL 0.5 mg/dL (0.2-1.3); BLOOD UREA NITROGEN 14 mg/dL (7-21); CALCIUM 8.3 mg/dL (8.4-10.5); CARBON DIOXIDE 26 mmol/L (21-33); CHLORIDE 97 mmol/L (98-107); GFR AFRICAN-AMERICAN > 60; GLUCOSE,RANDOM 276 mg/dL (70-110); POTASSIUM 4.2 mmol/L (3.6-5.0); SODIUM 131 mmol/L (132-148); TOTAL PROTEIN 6.2 g/dL (5.8-8.3)
[2017-04-27 07:03] LABS: BASO # 0.03 K/mm3 (0.0-2.0); BASO % 0.3 % (0.0-3.0); EOS # 0.2 (0.0-0.7); EOS % 2.1 % (1.5-5.0); GRAN # 6.76 (1.4-6.5); GRAN % 66.6 % (50.0-68.0); HEMATOCRIT 26.7 % (36.0-48.0); INR 1.13 (0.93-1.08); LYMPH # 2.4 (1.2-3.4); MEAN CELL VOLUME 87.3 fl (80.0-105.0); MEAN CORPUSCULAR HEMOGLOBIN 29.7 pg (25.0-35.0); MEAN CORPUSCULAR HGB CONC 34.1 g/dl (31.0-37.0); MEAN PLATELET VOLUME 9.4 fl (7.0-11.0); MONO # 0.7 (0.1-0.6); PLATELET COUNT 200 10^3/uL (120.0-450.0); RED CELL DISTRIBUTION WIDTH 12.3 % (11.5-14.5); WHITE BLOOD COUNT 10.1 10^3/ul (4.5-11.0)
[2017-04-27 07:23] LABS: PARTIAL THROMBOPLASTIN TIME 85.4 Seconds (23.7-30.8)
[2017-04-27] MEDS: Insulin Reg-MEDIUM-Coverage SC SCH ×4 (08:26→21:50)
--- NOTE | 2017-04-27 14:02 | PN ---
DATE: 04/27/2017 SUBJECTIVE: The patient's vaginal bleeding is somewhat better. The patient is without shortness of breath. PHYSICAL EXAMINATION: VITAL SIGNS: Blood pressure is 124/80, heart rate in the 90s. The patient is afebrile. NECK: Negative JVD. LUNGS: Without rales/ HEART: Reveals S1, S2. EXTREMITIES: Without edema. LABORATORY DATA: The PTT is 85. The hemoglobin is 9.1. IMPRESSION: 1. Status post pulmonary embolism. 2. Severe cardiomyopathy. 3. Anemia. 4. Vaginal bleeding. 5. Need to rule out endometrial hyperplasia versus neoplasm. Given these findings, the patient is being followed by [facility] today. It would appear that we would need to get a tissue diagnosis of the endometrium prior to considering starting a therapeutic course versus long-term anticoagulation for her pulmonary embolism. Florian Nguyễn MD
[2017-04-27] MEDS: Heparin 25,000units in D5W 25,000 UNITS/250 ML BAG IV PRN (14:57)
--- NOTE | 2017-04-27 21:29 | CON ---
DATE: 04/27/2017 HISTORY OF PRESENT ILLNESS: This is a 57-year-old virgin, postmenopausal since around 50 years old with a history significant for diabetes, hypertension and obesity, admitted to the ICU with DKA, status post systemic tPA for a large PE who started bleeding on Sunday of this past week. 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 She also also has been diagnosed with an underlying cardiomyopathy that needs to be further investigated after the large PE resolves. She reports that she has never used tampons. During the history, she was crying and reports that she is very sad because she has a feeling she will not be able to go back to work. She was also c/o left arm pain. PAST MEDICAL HISTORY: Hypertension, diabetes, and obesity PAST SURGICAL HISTORY: At 5 years old, she had an eye surgery for being cross-eyed. ALLERGIES: NO KNOWN DRUG ALLERGIES. FAMILY HISTORY: Mother with bone cancer. Father , had kidney disease and was on dialysis. She had a maternal aunt with Parkinson's. SOCIAL HISTORY: The patient denies tobacco use. She drinks about 1 alcoholic drink a month socially and denies any illicit drugs. 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 INVASIVE PHYSICIAN HISTORY: The patient did have a history of regular periods and think she was postmenopausal since around 50 years old denies any bleeding since menopause until this recent episode of bleeding. The patient denies any STDs or any abnormal Pap smears. MEDICATIONS: Acetaminophen 650 mg p.o. q.4 p.r.n. She is on heparin. She is on insulin subcutaneous. She is on lisinopril 5 mg p.o. daily, pantoprazole 40 mg IV q.12, and tramadol 50 mg p.o. q.6 p.r.n. for pain. PHYSICAL EXAMINATION GENERAL: The patient started crying easily at times during the history because she is very upset about her condition. VITAL SIGNS: Afebrile. Vital signs stable. ABDOMEN: Soft, nontender, and obese. EXTREMITIES: Left arm has ecchymosis at the inferior portion of the entire arm. VAGINAL EXAM: Pad that had been on since 4 a.m. ( now about 9:30 a.m.) moderately filled, bleeding estimated to be moderate flow. LABORATORY DATA: White count is normal at 10.1, hemoglobin has gone from 14.9 on 04/23/2017 down to 9.1. Platelets are normal and are 200. IMAGING : The patient had a vaginal scan done yesterday and revealed that the endometrial lining measured 16 mm in diameter, "markedly abnormal in a 57-year-old postmenopausal woman and further evaluation was advised. This is concerning for endometrial neoplasm or endometrial hyperplasia" and there was also nonspecific small amount of fluid noted in the cul-de-sac and her pelvis. Otherwise, her right ovary and left ovary were not visualized. ASSESSMENT AND PLAN: This is a 57-year-old virgin who has been postmenopausal since around 50 years old, admitted to the hospital in diabetic ketoacidosis with a large pulmonary embolus who started having vaginal bleeding on anticoagulation. I spent some time with the patient, explained to her that her uterine lining is thick which may be due to a benign process, ie., polyps or could be uterine cancer, and it seems that she started bleeding due to the thick lining and likely secondary to the anticoagulation started for the pulmonary embolism. I explained that she needs to first be medically stabilized and then she should follow up as an outpatient for an evaluation of the thick endometrial lining, which may entail taking her to the operating room and doing a hysteroscopy, dilation and curettage. The patient reports that she is willing to also see if an endometrial biopsy could be done in the office. It is understood that her airport ramp agent and gin operator would first be consulted prior to any procedure. I also spoke with Dr. Obi Nguyen and he will give her 2 units PRBCs if her hemoglobin falls to 8 g/dL. Humza Mcgarry MD [facility]
[2017-04-28] MEDS ORDERED: HYDROmorphone 1 mg/ml ISec IVP STA (03:28)
[2017-04-28 04:05] LABS: ADD MANUAL DIFF? NO
[2017-04-28 04:08] LABS: BASO # 0.04 K/mm3 (0.0-2.0); BASO % 0.3 % (0.0-3.0); EOS # 0.3 (0.0-0.7); EOS % 2.2 % (1.5-5.0); GRAN # 9.73 (1.4-6.5); HEMATOCRIT 25.4 % (36.0-48.0); LYMPH # 1.9 (1.2-3.4); LYMPH % 14.7 % (22.0-35.0); MEAN CELL VOLUME 87.9 fl (80.0-105.0); MEAN CORPUSCULAR HEMOGLOBIN 29.8 pg (25.0-35.0); MEAN CORPUSCULAR HGB CONC 33.9 g/dl (31.0-37.0); MONO % 7.8 % (1.0-6.0); PLATELET COUNT 208 10^3/uL (120.0-450.0); RED CELL DISTRIBUTION WIDTH 12.5 % (11.5-14.5)
[2017-04-28 04:22] LABS: INR 1.1 (0.93-1.08); PARTIAL THROMBOPLASTIN TIME 61.8 Seconds (23.7-30.8)
[2017-04-28 04:25] LABS: ALKALINE PHOSPHATASE 69 U/L (38-133); ALT/SGPT 53 U/L (7-56); AST/SGOT 44 U/L (15-39); BILIRUBIN,TOTAL 0.7 mg/dL (0.2-1.3); BLOOD UREA NITROGEN 14 mg/dL (7-21); CALCIUM 8.5 mg/dL (8.4-10.5); CARBON DIOXIDE 27 mmol/L (21-33); CHLORIDE 95 mmol/L (98-107); GFR AFRICAN-AMERICAN > 60; GLUCOSE,RANDOM 282 mg/dL (70-110); POTASSIUM 3.9 mmol/L (3.6-5.0); SODIUM 133 mmol/L (132-148); TOTAL PROTEIN 6.1 g/dL (5.8-8.3)
[2017-04-28] MEDS: Insulin Reg-MEDIUM-Coverage SC SCH ×4 (08:30→21:20)
[2017-04-28] MEDS: Heparin 25,000units in D5W 25,000 UNITS/250 ML BAG IV PRN (10:08)
[2017-04-28] MEDS ORDERED: Oxycodone/Acetaminophen 5/325 mg Tab PO PRN (10:34)
--- NOTE | 2017-04-28 16:44 | PN ---
DATE: 04/28/2017 SUBJECTIVE: The patient is complaining of left upper extremity pain. PHYSICAL EXAMINATION: VITAL SIGNS: Blood pressure 130/75 and heart rate 103. NECK: Negative JVD. LUNGS: Without rales. HEART: Reveals S1 and S2. EXTREMITIES: Without edema. LABORATORY DATA: His hemoglobin is 8.6. Chemistries, glucose is 282. The ultrasound of the upper extremity reveals no thrombus. IMPRESSION: 1. Acute pulmonary embolism. 2. Severe cardiomyopathy. 3. Vaginal bleeding with endometrial disease. 4. Anemia. PLAN: Given these findings, we will maintain on heparin until a plan for tissue diagnosis of her endometrial disease is settled. Florian Nguyễn MD
[2017-04-28] MEDS: Oxycodone/Acetaminophen 5/325 mg Tab PO PRN ×2 (17:13→21:13)
--- NOTE | 2017-04-28 17:25 | PN ---
DATE: SUBJECTIVE: She is in room 268, bed 2. There have been no acute events overnight. She is saying that the vaginal bleeding has diminished. The patient has the only compliant of left arm pain. PHYSICAL EXAMINATION: VITAL SIGNS: Temperature of 98.1, pulse rate of 102, blood pressure 1114/70, O2 saturation of 100% on a nasal cannula. HEENT: PERRLA. EOMI. No icterus. NECK: Supple with full range of motion. There are no bruits. LUNGS: Clear bilaterally. HEART: Regular rate rhythm. No murmurs, rubs, or gallops. ABDOMEN: Soft, it is nontender. There is no organomegaly. EXTREMITIES: Show a large ecchymotic area of the left upper extremity. There is no cyanosis. NEUROLOGIC: There are no focal deficits. LABORATORY DATA: Lab values: WBC of 13.0, hemoglobin and hematocrit 8.6 and 25.4. Chemistry is normal with the exception of a random glucose of 282. IMPRESSION: 1. Pulmonary embolism. 2. Shortness of breath. 3. Vaginal bleed. PLAN: We will continue patient on heparin. We will discuss with Supervisor Coffee as to a biopsy and/or D and C and/or both. Continue current medications. Monitor hemoglobin and hematocrit. If the hemoglobin falls below 8, we will transfuse the patient. The patient had an ultrasound of the left upper extremity. There are no thrombi present. Obi Nguyen MD
--- NOTE | 2017-04-28 17:38 | US ---
PROCEDURE: Left upper extremity venous ultrasound HISTORY: Arm pain and swelling. Evaluate for deep venous thrombosis. PHYSICIAN(S): Florian Zhang MD. FINDINGS: The exam is very limited by edema. The left internal jugular vein is normal and compressible. The visualized segments of the left subclavian vein are patent. There appears to be a small fluid collection heterogeneous mass in the left axilla. This should be correlated with physical exam and crossed sectional imaging if indicated. IMPRESSION: 1. No sonographic evidence for deep venous thrombosis in the visualized segments of the left upper extremity. 2. Limited study with apparent heterogeneous massive fluid collection left axilla. This should be correlated with physical exam and cross-sectional imaging if clinically indicated
[2017-04-29] MEDS: Oxycodone/Acetaminophen 5/325 mg Tab PO PRN ×4 (01:10→21:18)
--- NOTE | 2017-04-29 02:01 | CP.PCM.PN ---
Subjective - Date & Time of Evaluation Date of Evaluation: 04/29/17 Time of Evaluation: 01:59 - Subjective Subjective: Patient was seen at bedside because she had runs of VTACH- 14 beats. Has no complaints. Denies hematemesis, hematuria, hematochezia. Denies chest pain, sob, nausea, sweating , palpitation. States that she has vaginal bleeding. BP -121/66, pulse ox 95% on 3L/nc. This 57 neel old white woman was admitted with shortness of breath, hypotension , pulmonary embolism. Has PMH of obesity, HTN,DM. Objective - Vital Signs/Intake and Output Vital Signs (last 24 hours): Temp Pulse Resp BP Pulse Ox 97.9 F 102 H 20 129/73 100 04/29/17 00:01 04/29/17 00:01 04/29/17 00:01 04/29/17 00:01 04/29/17 00:01 Intake and Output: 04/28/17 04/29/17 18:59 06:59 Intake Total 1400 Output Total 300 Balance 1100 - Medications Medications: Current Medications Acetaminophen (Tylenol 325mg Tab) 650 mg PO Q4H PRN PRN Reason: Pain, moderate (4-7) Last Admin: 04/28/17 01:43 Dose: 650 mg Heparin Sodium/Dextrose (Heparin 25,000 Units/250ml In D5w) 25,000 units in 250 mls @ 19.105 mls/hr IV .Q13H6M PRN; Protocol; 18 UNITS/KG/HR PRN Reason: ADJUST RATE PER PROTOCOL Last Admin: 04/28/17 10:08 Dose: 13 units/kg/hr, 13.798 mls/hr Insulin Human Regular (Humulin R Med) 0 units SC ACHS [facility] PRN Reason: Protocol Last Admin: 04/28/17 21:20 Dose: Not Given Lisinopril (Zestril) 5 mg PO DAILY [facility] Last Admin: 04/28/17 09:58 Dose: 5 mg Oxycodone/Acetaminophen (Percocet 5/325 Mg Tab) 1 tab PO Q4H PRN PRN Reason: Pain, moderate (4-7) Stop: 05/01/17 14:48 Last Admin: 04/29/17 01:10 Dose: 1 tab Pantoprazole Sodium (Protonix Inj) 40 mg IVP Q12 [facility] Last Admin: 04/28/17 21:13 Dose: 40 mg Tramadol HCl (Ultram) 50 mg PO Q6 PRN PRN Reason: Pain, severe (8-10) Last Admin: 04/28/17 14:06 Dose: 50 mg - Labs Labs: 04/28/17 04:00 04/28/17 04:00 PT 11.9 Seconds (9.9-11.8) H 04/28/17 04:00 INR 1.10 (0.93-1.08) H 04/28/17 04:00 APTT 61.8 Seconds (23.7-30.8) H 04/28/17 04:00 - Constitutional Appears: Well, No Acute Distress - Head Exam Head Exam: ATRAUMATIC, NORMAL INSPECTION, NORMOCEPHALIC Additional comments: Obese person. - Eye Exam Eye Exam: Normal appearance - ENT Exam ENT Exam: Normal External Ear Exam - Neck Exam Neck Exam: Normal Inspection - Respiratory Exam Respiratory Exam: NORMAL BREATHING PATTERN - Cardiovascular Exam Cardiovascular Exam: absent: JVD - GI/Abdominal Exam GI & Abdominal Exam: absent: Distended - Rectal Exam Rectal Exam: Deferred - Exam Additional comments: Deferred. - Extremities Exam Extremities Exam: Normal Inspection - Back Exam Back Exam: NORMAL INSPECTION - Neurological Exam Neurological Exam: Alert, Oriented x3 - Psychiatric Exam Psychiatric exam: Normal Affect, Normal Mood - Skin Skin Exam: Pallor (+) Assessment and Plan - Assessment and Plan (Free Text) Assessment: Non sustained ventricular tachycardia. Pulmonary embolism. Vaginal bleeding. Anemia. Obesity. DM. HTN. Indeterminate troponin. 0.30(04/23)----> 0.08.Now. Plan: AM labs plus mag, phos, troponin now.--->Hemoblobin dropped. Troponin 0.08. EKG stat---->Sinus tachycardia.No acute ST T changes, Lateral wall infarct? Will need blood transfusion. Spoke to .
[2017-04-29 03:26] LABS: ADD MANUAL DIFF? NO
[2017-04-29 03:28] LABS: BASO # 0.03 K/mm3 (0.0-2.0); BASO % 0.2 % (0.0-3.0); EOS # 0.3 (0.0-0.7); EOS % 1.7 % (1.5-5.0); GRAN # 13.55 (1.4-6.5); GRAN % 74.8 % (50.0-68.0); LYMPH % 16.4 % (22.0-35.0); MEAN CELL VOLUME 88.1 fl (80.0-105.0); MEAN CORPUSCULAR HEMOGLOBIN 30.7 pg (25.0-35.0); MEAN CORPUSCULAR HGB CONC 34.9 g/dl (31.0-37.0); MEAN PLATELET VOLUME 8.4 fl (7.0-11.0); MONO # 1.2 (0.1-0.6); MONO % 6.9 % (1.0-6.0); PLATELET COUNT 224 10^3/uL (120.0-450.0); RED CELL DISTRIBUTION WIDTH 12.8 % (11.5-14.5); WHITE BLOOD COUNT 18.1 10^3/ul (4.5-11.0)
[2017-04-29 03:31] LABS: HEMATOCRIT 21.5 % (36.0-48.0)
[2017-04-29] MEDS: Heparin 25,000units in D5W 25,000 UNITS/250 ML BAG IV PRN ×2 (03:36→22:57)
[2017-04-29 03:40] LABS: ALKALINE PHOSPHATASE 66 U/L (38-133); ALT/SGPT 44 U/L (7-56); AST/SGOT 42 U/L (15-39); BILIRUBIN,TOTAL 0.6 mg/dL (0.2-1.3); BLOOD UREA NITROGEN 11 mg/dL (7-21); CALCIUM 8.4 mg/dL (8.4-10.5); CARBON DIOXIDE 29 mmol/L (21-33); CHLORIDE 94 mmol/L (98-107); GFR AFRICAN-AMERICAN > 60; GLUCOSE,RANDOM 235 mg/dL (70-110); MAGNESIUM 1.8 mg/dL (1.7-2.2); PHOSPHOROUS 3.9 mg/dL (2.5-4.5); SODIUM 131 mmol/L (132-148)
[2017-04-29 03:54] LABS: TROPONIN I 0.08 ng/mL
--- NOTE | 2017-04-29 06:13 | CP.PCM.PN ---
Subjective - Date & Time of Evaluation Date of Evaluation: 04/29/17 Time of Evaluation: 06:12 - Subjective Subjective: A consent was obtained for blood transfusion from patient after explaining to her in detail about blood transfusion including transfusion reactions. Objective - Vital Signs/Intake and Output Vital Signs (last 24 hours): Temp Pulse Resp BP Pulse Ox 97.9 F 102 H 20 129/73 100 04/29/17 00:01 04/29/17 02:00 04/29/17 00:01 04/29/17 00:01 04/29/17 00:01 Intake and Output: 04/28/17 04/29/17 18:59 06:59 Intake Total 1400 250 Output Total 300 Balance 1100 250 - Medications Medications: Current Medications Acetaminophen (Tylenol 325mg Tab) 650 mg PO Q4H PRN PRN Reason: Pain, moderate (4-7) Last Admin: 04/28/17 01:43 Dose: 650 mg Heparin Sodium/Dextrose (Heparin 25,000 Units/250ml In D5w) 25,000 units in 250 mls @ 19.105 mls/hr IV .Q13H6M PRN; Protocol; 18 UNITS/KG/HR PRN Reason: ADJUST RATE PER PROTOCOL Last Admin: 04/29/17 03:36 Dose: 13 units/kg/hr, 13.798 mls/hr Insulin Human Regular (Humulin R Med) 0 units SC ACHS [facility] PRN Reason: Protocol Last Admin: 04/28/17 21:20 Dose: Not Given Lisinopril (Zestril) 5 mg PO DAILY [facility] Last Admin: 04/28/17 09:58 Dose: 5 mg Oxycodone/Acetaminophen (Percocet 5/325 Mg Tab) 1 tab PO Q4H PRN PRN Reason: Pain, moderate (4-7) Stop: 05/01/17 14:48 Last Admin: 04/29/17 01:10 Dose: 1 tab Pantoprazole Sodium (Protonix Inj) 40 mg IVP Q12 [facility] Last Admin: 04/28/17 21:13 Dose: 40 mg Tramadol HCl (Ultram) 50 mg PO Q6 PRN PRN Reason: Pain, severe (8-10) Last Admin: 04/28/17 14:06 Dose: 50 mg - Labs Labs: 04/29/17 03:20 04/29/17 03:20 PT 11.9 Seconds (9.9-11.8) H 04/28/17 04:00 INR 1.10 (0.93-1.08) H 04/28/17 04:00 APTT 61.8 Seconds (23.7-30.8) H 04/28/17 04:00
[2017-04-29] MEDS: Insulin Reg-MEDIUM-Coverage SC SCH ×4 (08:08→22:15)
--- NOTE | 2017-04-29 11:49 | PN ---
DATE: 04/29/2017 CARDIOLOGY FOLLOWUP NOTE SUBJECTIVE: The patient is comfortable, her left arm pain is better. PHYSICAL EXAMINATION VITAL SIGNS: Blood pressure is 129/73 and heart rate in approximately 100. NECK: Negative JVD. LUNGS: Without rales. HEART: Reveal S1 and S2. EXTREMITIES: Without edema. LABORATORY STUDIES: The troponin is 0.08. The hemoglobin is 7.5. IMPRESSION 1. Acute pulmonary embolism. 2. Dilated cardiomyopathy. 3. Vaginal bleeding while on heparin. 4. Severe anemia. PLAN: Given these findings, the patient has been transfused packed red blood cells. Still awaiting for definitive diagnosis and treatment by TRANSCRIBING MACHINE OPERATOR prior to putting on long-term anticoagulation. Florian Nguyễn MD
--- NOTE | 2017-04-29 13:51 | CARD ---
APPROVED REPORT EKG Measurement Heart [id number] <Conclusion> Sinus tachycardia Nonspecific intraventricular block Possible Lateral infarct, age undetermined Abnormal ECG
--- NOTE | 2017-04-29 15:46 | PN ---
LOCATION: Room 268, bed 2. SUBJECTIVE: The patient states that her left arm pain has improved. She continues to bleed. This morning, her hemoglobin was 8.6. She was currently being transfused 2 units of packed red blood cells. PHYSICAL EXAMINATION VITAL SIGNS: Temperature of 98.9, pulse rate of 108, blood pressure 110/60, and a respiratory rate of 15. HEENT: PERRLA, EOMI. No icterus. NECK: Supple with a full range of motion and no bruits. LUNGS: Clear to auscultation and percussion bilaterally. HEART: With a regular rate and rhythm. No murmurs, rubs, or gallops. ABDOMEN: Soft, it is nontender. There is no organomegaly. Bowel sounds are normoactive. EXTREMITIES: Show any ecchymotic left arm from the mid biceps down. There is full range of motion. No cyanosis is present. NEUROLOGICAL: There are no focal deficits. LABORATORY DATA: This morning, WBC of 18.1, hemoglobin and hematocrit are now 7.5 and 21.5. There are 74% granulocytes. Chemistry is essentially normal with the exception of a glucose of 235. As previously stated, the patient is being transfused and Dr. Gambino has been put on consult. The problems at the current time are: 1. Pulmonary embolus. 2. Vaginal bleed. Obi Nguyen MD
[2017-04-29] MEDS ORDERED: Cefepime IV 2 gm in NS 2 GM/100 ML BAG IVPB STA (15:56)
--- NOTE | 2017-04-29 16:04 | CP.PCM.CON ---
History of Present Illness - History of Present Illness History of Present Illness: 57 year old female with PMH of HTN, DM, morbid obesity with BMI 44 was initially admitted for sudden onset shortness of breath with associated fever. She was found to have massive pulomanry embolism on work up and is currently on anticoagulation. Since then, she developed vaginal bleeding as well as left arm swelling (which is the site where they take blood from). Ultrasound of the left arm did not show a DVT, but did show a fluid collection. Gyne is planning of doing an endometrial biopsy to see if that's the cause of bleeding. Her WBC count has also been increasing and Infectious Diseases consult is requested to further evaluate and manage. She denies fever or chills currently, no abdominal pain, no nausea or vomiting, no chest pain, no SOB currently, no headache or dizziness, no diarrhea or dysuria. Her left arm is bruised and she is complaining of pain on the left arm. Yesterday she could not move her arm but she is able to do it now. Review of Systems - Review of Systems All systems: reviewed and no additional remarkable complaints except (as per HPI ) Past Patient History - Past Social History Smoking Status: Never Smoked - CARDIAC Hx Cardiac Disorders: Yes Hx Hypertension: Yes - PULMONARY Hx Respiratory Disorders: Yes (PULMONARY EMBOLISM 04-23-17) - NEUROLOGICAL Hx Neurological Disorder: No - HEENT Hx HEENT Problems: Yes (STRABISMUS WITH SX.) - ENDOCRINE/METABOLIC Hx Diabetes Mellitus Type 2: Yes - HEMATOLOGICAL/ONCOLOGICAL Hx Blood Disorders: No - INTEGUMENTARY Hx Dermatological Problems: No - MUSCULOSKELETAL/RHEUMATOLOGICAL Hx Musculoskeletal Disorders: No Hx Falls: No - GASTROINTESTINAL Hx Gastrointestinal Disorders: No - GENITOURINARY/GYNECOLOGICAL Hx Genitourinary Disorders: No - PSYCHIATRIC Hx Psychophysiologic Disorder: No Hx Substance Use: No - SURGICAL HISTORY Hx Surgeries: Yes (EYE SX"LAZY EYE") - ANESTHESIA Hx Anesthesia: No Meds Allergies/Adverse Reactions: Allergies Allergy/AdvReac Type Severity Reaction Status Date / Time No Known Allergies Allergy Verified 04/23/17 12:08 - Medications Medications: Current Medications Acetaminophen (Tylenol 325mg Tab) 650 mg PO Q4H PRN PRN Reason: Pain, moderate (4-7) Last Admin: 04/28/17 01:43 Dose: 650 mg Heparin Sodium/Dextrose (Heparin 25,000 Units/250ml In D5w) 25,000 units in 250 mls @ 19.105 mls/hr IV .Q13H6M PRN; Protocol; 18 UNITS/KG/HR PRN Reason: ADJUST RATE PER PROTOCOL Last Admin: 04/29/17 03:36 Dose: 13 units/kg/hr, 13.798 mls/hr Insulin Human Regular (Humulin R Med) 0 units SC ACHS [facility] PRN Reason: Protocol Last Admin: 04/29/17 08:08 Dose: 5 units Lisinopril (Zestril) 5 mg PO DAILY [facility] Last Admin: 04/29/17 09:11 Dose: 5 mg Oxycodone/Acetaminophen (Percocet 5/325 Mg Tab) 1 tab PO Q4H PRN PRN Reason: Pain, moderate (4-7) Stop: 05/01/17 14:48 Last Admin: 04/29/17 08:10 Dose: 1 tab Pantoprazole Sodium (Protonix Inj) 40 mg IVP Q12 [facility] Last Admin: 04/29/17 09:11 Dose: 40 mg Tramadol HCl (Ultram) 50 mg PO Q6 PRN PRN Reason: Pain, severe (8-10) Last Admin: 04/28/17 14:06 Dose: 50 mg Physical Exam - Constitutional Appears: Non-toxic, No Acute Distress - Head Exam Head Exam: NORMAL INSPECTION - ENT Exam ENT Exam: Mucous Membranes Moist - Neck Exam Neck exam: Negative for: Lymphadenopathy, Meningismus - Respiratory Exam Respiratory Exam: Decreased Breath Sounds - Cardiovascular Exam Cardiovascular Exam: +S1, +S2 - GI/Abdominal Exam GI & Abdominal Exam: Soft. absent: Tenderness - Extremities Exam Additional comments: left arm with bruising on the medial side, with swelling noted; capillary refill is about 2 seconds and there is good radial pulse on the left arm Results - Vital Signs Recent Vital Signs: Last Vital Signs Temp 98.9 F 04/29/17 09:09 Pulse 108 H 04/29/17 09:11 Resp 15 04/29/17 09:09 BP 110/60 04/29/17 09:11 Pulse Ox 96 04/29/17 06:00 - Labs Result Diagrams: 04/29/17 03:20 04/29/17 03:20 Labs: Laboratory Results - last 24 hr 04/28/17 04/28/17 04/28/17 11:58 16:37 21:19 WBC RBC Hgb Hct MCV MCH MCHC RDW Plt Count MPV Gran % Lymph % (Auto) [place] % (Auto) Eos % (Auto) Baso % (Auto) Gran # Lymph # [place] # Eos # Baso # APTT Sodium Potassium Chloride Carbon Dioxide Anion Gap BUN Creatinine Est GFR ( Amer) Est GFR (Non-Af Amer) POC Glucose (mg/dL) 276 H 254 H 283 H Random Glucose Calcium Phosphorus Magnesium Total Bilirubin AST ALT Alkaline Phosphatase Troponin I Total Protein Albumin Globulin Albumin/Globulin Ratio Blood Type Blood Type Confirm Antibody Screen Crossmatch BBK History Checked 04/29/17 04/29/17 04/29/17 03:20 03:20 06:40 WBC 18.1 H D RBC 2.44 L Hgb 7.5 L Hct 21.5 L MCV 88.1 MCH 30.7 MCHC 34.9 RDW 12.8 Plt Count 224 MPV 8.4 Gran % 74.8 H Lymph % (Auto) 16.4 L [place] % (Auto) 6.9 H Eos % (Auto) 1.7 Baso % (Auto) 0.2 Gran # 13.55 H Lymph # 3.0 [place] # 1.2 H Eos # 0.3 Baso # 0.03 APTT 67.6 H Sodium 131 L Potassium 4.0 Chloride 94 L Carbon Dioxide 29 Anion Gap 12 BUN 11 Creatinine 0.6 Est GFR ( Amer) > 60 Est GFR (Non-Af Amer) > 60 POC Glucose (mg/dL) Random Glucose 235 H Calcium 8.4 Phosphorus 3.9 Magnesium 1.8 Total Bilirubin 0.6 AST 42 H ALT 44 Alkaline Phosphatase 66 Troponin I 0.08 D Total Protein 6.0 Albumin 3.0 Globulin 3.1 Albumin/Globulin Ratio 1.0 L Blood Type Blood Type Confirm Antibody Screen Crossmatch BBK History Checked 04/29/17 04/29/17 04/29/17 06:40 07:54 08:11 WBC RBC Hgb Hct MCV MCH MCHC RDW Plt Count MPV Gran % Lymph % (Auto) [place] % (Auto) Eos % (Auto) Baso % (Auto) Gran # Lymph # [place] # Eos # Baso # APTT Sodium Potassium Chloride Carbon Dioxide Anion Gap BUN Creatinine Est GFR ( Amer) Est GFR (Non-Af Amer) POC Glucose (mg/dL) 296 H Random Glucose Calcium Phosphorus Magnesium Total Bilirubin AST ALT Alkaline Phosphatase Troponin I Total Protein Albumin Globulin Albumin/Globulin Ratio Blood Type A POSITIVE Blood Type Confirm A POSITIVE Antibody Screen Negative Crossmatch See Detail BBK History Checked No verified bt Assessment & Plan - Assessment and Plan (Free Text) Plan: Assessment Systemic Inflammatory response syndrome, consider reactive in relation to probable hematoma on the left arm, R/O sepsis source to be determined acute pulmonary embolism, on anticoagulation vaginal bleeding, etiology to be determined HTN DM morbid obesity with BMI 44 Plan Will give Vancomycin and a dose of Cefepime pending blood and urine cx; currently does not have signs of pneumonia will order CT scan of the left arm to better delineate the fluid collection discussed with Dr. Nguyen - will monitor left arm, and if condition worsens, he will consider consulting Surgery will monitor clinically and trend WBC count
[2017-04-29] MEDS ORDERED: Iohexol 350 MG/100 ML VIAL ONE (16:38)
[2017-04-29] MEDS: Vancomycin 1gm in NS 250ml 1 G/250 ML BAG IVPB SCH (16:41)
[2017-04-30] MEDS: Oxycodone/Acetaminophen 5/325 mg Tab PO PRN ×4 (03:09→18:41)
[2017-04-30] MEDS: Vancomycin 1gm in NS 250ml 1 G/250 ML BAG IVPB SCH ×2 (03:28→16:49)
[2017-04-30 07:33] LABS: ALB/GLOB RATIO 0.9 (1.1-1.8); ALKALINE PHOSPHATASE 66 U/L (38-133); ALT/SGPT 41 U/L (7-56); AST/SGOT 43 U/L (15-39); BILIRUBIN,TOTAL 0.7 mg/dL (0.2-1.3); BLOOD UREA NITROGEN 13 mg/dL (7-21); CALCIUM 8.1 mg/dL (8.4-10.5); CARBON DIOXIDE 28 mmol/L (21-33); CHLORIDE 95 mmol/L (98-107); GFR AFRICAN-AMERICAN > 60; GLUCOSE,RANDOM 295 mg/dL (70-110); POTASSIUM 4.1 mmol/L (3.6-5.0); SODIUM 130 mmol/L (132-148); TOTAL PROTEIN 5.9 g/dL (5.8-8.3)
[2017-04-30 07:37] LABS: MEAN CELL VOLUME 88.8 fl (80.0-105.0); MEAN CORPUSCULAR HEMOGLOBIN 29.7 pg (25.0-35.0); MEAN CORPUSCULAR HGB CONC 33.5 g/dl (31.0-37.0); MEAN PLATELET VOLUME 9.1 fl (7.0-11.0); RED CELL DISTRIBUTION WIDTH 13.8 % (11.5-14.5); WHITE BLOOD COUNT 16.3 10^3/ul (4.5-11.0)
[2017-04-30 07:38] LABS: HEMATOCRIT 23.9 % (36.0-48.0)
[2017-04-30] MEDS: Insulin Reg-MEDIUM-Coverage SC SCH ×4 (08:34→22:34)
--- NOTE | 2017-04-30 09:43 | CT ---
PROCEDURE: Left upper extremity swelling HISTORY: LEFT ARM SWELLING COMPARISON: None TECHNIQUE: 2.5 mm axial acquisition and display. Coronal and sagittal reconstructions. Dose report (mGy-cm): 1226.77 100 cc Omnipaque 350 administered intravenously. FINDINGS: Left upper extremity: Diffuse soft tissue swelling extends from the level of the proximal humerus in a continuous fashion to the proximal forearm. Cutaneous and subcutaneous edema. More deeply situated soft tissue swelling without evidence of gas-forming organism. As can best be determined no vascular compromise identified. There is no evidence of discrete soft tissue mass or lymphadenopathy. No focal or diffuse osseous abnormalities are identified. IMPRESSION: Soft tissue swelling without acute articular or osseous abnormality. Concordant results (preliminary interpretation) provided by [facility]. Procedure Completed: 18:32 Preliminary ([facility]) Report: Dictated and Authenticated: 19:24. Final Interpretation: 09:37. April 30, 2017.
--- NOTE | 2017-04-30 09:53 | PN ---
SUBJECTIVE: The patient was seen and examined at bedside on the telemetry hinkle. Overnight, the patient was noted to have persistent vaginal bleed with passage of clots. The patient also endorses continued left upper extremity edema and tenderness, and states her pain is controlled with her current analgesic regimen. Otherwise, she states that she is just concerned given her multiple active medical issues. OBJECTIVE: VITAL SIGNS: Temperature 98.2, pulse 103, blood pressure 137/73, respiratory rate 20, oxygen saturation 95% on 3 liters nasal cannula. GENERAL: Mild distress secondary to left upper extremity pain. HEENT: PERRL. EOMI. No scleral icterus. Mild conjunctival pallor is noted. NECK: No JVD. LUNGS: Decreased breath sounds at bases. CARDIOVASCULAR: Tachycardic. Normal S1 and S2. Grade II/ systolic ejection murmur to right upper sternal border. ABDOMEN: Obese. Normoactive bowel sounds. Soft, nontender, nondistended. EXTREMITIES: Left upper extremity is tensed to the upper arm with significant ecchymosis/hematoma formation to the posterior aspect of her upper arm. Lower extremities demonstrate no edema. NEUROLOGIC: Awake, alert and oriented x3. No focal motor deficits. LABORATORY DATA: WBC 16.3, hemoglobin 8, hematocrit 24, platelets 236. Sodium 130, potassium 4.1, chloride 95, bicarbonate 28, BUN 13, creatinine 0.7, glucose 295. Urine culture with no growth to date. Blood cultures are pending. ASSESSMENT: The patient is a 57-year-old woman with hypertension, type 2 diabetes mellitus and morbid obesity who was admitted to the ICU s/p provoked bilateral pulmonary emboli s/p DKA who is now status post transfer out of the ICU to the telemetry hinkle and undergoing continued anticoagulation for extensive bilateral pulmonary emboli and this hospital course was complicated by active vaginal bleed. PLAN: 1. Bilateral pulmonary emboli, provoked. The patient is status post administration of tPA in the ICU. She remains on a heparin drip. We will address heparin dose as per protocol. Dr. Brian of Pulmonary and Critical Care Medicine has been consulted for continued evaluation and recommendations. Continue supplemental oxygen as needed. 2. Vaginal bleed. Transvaginal ultrasound reviewed and demonstrates endometrial thickening with concern for endometrial hyperplasia versus possible neoplasm. Input from Dr. Mcgarry (HAND SLITTER) noted. However, given the patient's persistent active bleed, necessitating multiple transfusions of PRBCs. We will need to discuss with Dr. Mcgarry the urgency for possible gynecologic intervention so as to facilitate hemostasis. In the interim, we will continue to monitor CBC daily and transfuse to goal hemoglobin greater than 8. 3. Symptomatic anemia secondary to vaginal bleed. Continue with care as per # 2. 4. Dilated cardiomyopathy. Input from Dr. Nguyễn noted and appreciated and echocardiogram reviewed, which demonstrates severe hypokinetic LV with mild pulmonary hypertension. The patient remains euvolemic and hemodynamically stable. Continue with current care as per Dr. Nguyễn. 5. SIRS syndrome, rule out sepsis. Input from Dr. Ross of Infectious Disease noted and greatly appreciated, and the patient has received a dose of cefepime 2 g and remains on vancomycin 1 g IV q. 12 hours. We will continue to monitor for fever and leukocytosis. We will await culture reports. We will monitor vancomycin trough prior to fourth dose. 6. Left upper extremity ecchymosis/hematoma. CT of the left upper extremity is pending. Continue with compressors. Continue with Percocet 5/325 mg two tabs p.o. q. 4-6 hours p.r.n. pain. 7. Hypertension. Blood pressure controlled. Continue with lisinopril 5 mg p.o. daily. 8. Type 2 diabetes mellitus, status post DKA. Continue with medium dose insulin sliding scale. We will restart glimepiride 4 mg p.o. daily. Continue to monitor fingersticks q.a.c. and at bedtime. 9. Prophylaxis. Continue with Protonix for GI prophylaxis. The patient remains on heparin drip for her acute PE. CODE STATUS: FULL CODE. Jorge Nguyen MD MTDDarío
--- NOTE | 2017-04-30 11:51 | CP.PCM.CON ---
History of Present Illness - History of Present Illness History of Present Illness: Patient is a 57 yo nullparous virgin, with history of HTN, DM, obesity was admitted since 04/23 for shortness of breath, was found to have multiple PE's, DKA and now with acute upper extremity edema of unknown etiology. Patient began to have vaginal bleeding once the treatment for the PE was started, patient became anemic with a Hgb drop of 11.6 to 7.5. Patient is s/p blood transfusion, currently is having mild vaginal bleeding which as per patient and nurse is improving. Patient was evaluated by a [employer] attending on 04/27, endometrial thickness was noted to be 15mm on CT scan and recommended that patient be stabalized and biopsy to be done as outpatient. Past Patient History - Past Social History Smoking Status: Never Smoked - CARDIAC Hx Cardiac Disorders: Yes Hx Hypertension: Yes - PULMONARY Hx Respiratory Disorders: Yes (PULMONARY EMBOLISM 04-23-17) - NEUROLOGICAL Hx Neurological Disorder: No - HEENT Hx HEENT Problems: Yes (STRABISMUS WITH SX.) - ENDOCRINE/METABOLIC Hx Diabetes Mellitus Type 2: Yes - HEMATOLOGICAL/ONCOLOGICAL Hx Blood Disorders: No - INTEGUMENTARY Hx Dermatological Problems: No - MUSCULOSKELETAL/RHEUMATOLOGICAL Hx Musculoskeletal Disorders: No Hx Falls: No - GASTROINTESTINAL Hx Gastrointestinal Disorders: No - GENITOURINARY/GYNECOLOGICAL Hx Genitourinary Disorders: No - PSYCHIATRIC Hx Psychophysiologic Disorder: No Hx Substance Use: No - SURGICAL HISTORY Hx Surgeries: Yes (EYE SX"LAZY EYE") - ANESTHESIA Hx Anesthesia: No Meds Allergies/Adverse Reactions: Allergies Allergy/AdvReac Type Severity Reaction Status Date / Time No Known Allergies Allergy Verified 04/23/17 12:08 - Medications Medications: Current Medications Acetaminophen (Tylenol 325mg Tab) 650 mg PO Q4H PRN PRN Reason: Pain, moderate (4-7) Last Admin: 04/28/17 01:43 Dose: 650 mg Glimepiride (Amaryl) 4 mg PO DAILY [facility] Last Admin: 04/30/17 09:34 Dose: 4 mg Heparin Sodium/Dextrose (Heparin 25,000 Units/250ml In D5w) 25,000 units in 250 mls @ 19.105 mls/hr IV .Q13H6M PRN; Protocol; 18 UNITS/KG/HR PRN Reason: ADJUST RATE PER PROTOCOL Last Admin: 04/29/17 22:57 Dose: 13 units/kg/hr, 13.798 mls/hr Vancomycin HCl (Vancomycin 1gm) 1 g in 250 mls @ 167 mls/hr IVPB Q12H [facility] PRN Reason: Protocol Stop: 05/04/17 16:01 Last Admin: 04/30/17 03:28 Dose: 167 mls/hr Insulin Human Regular (Humulin R Med) 0 units SC ACHS [facility] PRN Reason: Protocol Last Admin: 04/30/17 08:34 Dose: 7 units Lisinopril (Zestril) 5 mg PO DAILY [facility] Last Admin: 04/30/17 09:37 Dose: 5 mg Oxycodone/Acetaminophen (Percocet 5/325 Mg Tab) 2 tab PO Q4H PRN PRN Reason: Pain, moderate (4-7) Stop: 05/01/17 14:48 Last Admin: 04/30/17 08:33 Dose: 2 tab Pantoprazole Sodium (Protonix Inj) 40 mg IVP Q12 [facility] Last Admin: 04/30/17 09:34 Dose: 40 mg Physical Exam - Constitutional Appears: Non-toxic, Unkempt - Head Exam Head Exam: ATRAUMATIC - Respiratory Exam Respiratory Exam: Clear to Auscultation Bilateral - Cardiovascular Exam Cardiovascular Exam: REGULAR RHYTHM - GI/Abdominal Exam Additional comments: obese, nontender, +BS, no acute abdomen, no gaurding, no rebound - Extremities Exam Additional comments: B/L LE edema, left arm edema Results - Vital Signs Recent Vital Signs: Last Vital Signs Temp 98.2 F 04/30/17 06:00 Pulse 74 04/30/17 09:37 Resp 20 04/30/17 06:00 BP 108/52 L 04/30/17 09:37 Pulse Ox 95 04/30/17 06:00 - Labs Result Diagrams: 04/30/17 07:05 04/30/17 07:05 Labs: Laboratory Results - last 24 hr 04/29/17 04/29/17 04/29/17 06:40 08:11 10:50 WBC RBC Hgb Hct MCV MCH MCHC RDW Plt Count MPV APTT Sodium Potassium Chloride Carbon Dioxide Anion Gap BUN Creatinine Est GFR ( Amer) Est GFR (Non-Af Amer) POC Glucose (mg/dL) Random Glucose Calcium Total Bilirubin AST ALT Alkaline Phosphatase Total Protein Albumin Globulin Albumin/Globulin Ratio Procalcitonin 0.37 Blood Type Confirm A POSITIVE Crossmatch See Detail 04/29/17 04/29/17 04/29/17 11:49 16:31 22:04 WBC RBC Hgb Hct MCV MCH MCHC RDW Plt Count MPV APTT Sodium Potassium Chloride Carbon Dioxide Anion Gap BUN Creatinine Est GFR ( Amer) Est GFR (Non-Af Amer) POC Glucose (mg/dL) 331 H 333 H 380 H Random Glucose Calcium Total Bilirubin AST ALT Alkaline Phosphatase Total Protein Albumin Globulin Albumin/Globulin Ratio Procalcitonin Blood Type Confirm Crossmatch 04/30/17 04/30/17 04/30/17 02:25 07:05 07:05 WBC 16.3 H RBC 2.69 L Hgb 8.0 L Hct 23.9 L MCV 88.8 MCH 29.7 MCHC 33.5 RDW 13.8 Plt Count 236 MPV 9.1 APTT Sodium 130 L Potassium 4.1 Chloride 95 L Carbon Dioxide 28 Anion Gap 11 BUN 13 Creatinine 0.7 Est GFR ( Amer) > 60 Est GFR (Non-Af Amer) > 60 POC Glucose (mg/dL) 353 H Random Glucose 295 H Calcium 8.1 L Total Bilirubin 0.7 AST 43 H ALT 41 Alkaline Phosphatase 66 Total Protein 5.9 Albumin 2.8 L Globulin 3.1 Albumin/Globulin Ratio 0.9 L Procalcitonin Blood Type Confirm Crossmatch 04/30/17 04/30/17 07:05 07:27 WBC RBC Hgb Hct MCV MCH MCHC RDW Plt Count MPV APTT 53.1 H Sodium Potassium Chloride Carbon Dioxide Anion Gap BUN Creatinine Est GFR ( Amer) Est GFR (Non-Af Amer) POC Glucose (mg/dL) 308 H Random Glucose Calcium Total Bilirubin AST ALT Alkaline Phosphatase Total Protein Albumin Globulin Albumin/Globulin Ratio Procalcitonin Blood Type Confirm Crossmatch Assessment & Plan - Assessment and Plan (Free Text) Plan: A/P 57 yo nullparous female admitted for multiple PEs, with h/o of HTN, DM, obesity, currently with anemia and vaginal bleeding 1. Reviewed my collegues consultation and agree with management and recommendation. Patient is an unstable candidate for biopsy and recommendation would still be for outpatient biopsy, as results would not alter current management for acute medical issues. Bleeding, even if a hyperplasia can be stabalized with Progsterone therapy in the acute phase which is has low risk in patients with history of cardiac and thrombombolism history. Progesterone treatment is a form of treatment for hyperplasia. Transvaginal done shows no masses or other pathology except for thickened endometial lining. 2. Patient needs to be medically stable and biopsy can be done in outpatient setting. Recommend continued blood transfusions, start either Provera 20mg PO daily or Aygestin 5mg PO daily. 3. Discussed management with patient and attending Dr. Rayna Nguyen. Plan is to stabalized bleeding with PO therapy and will biopsy as outpatient 4. Consultation appreciated - Date & Time Date: 04/30/17 Time: 11:51
--- NOTE | 2017-04-30 12:44 | PN ---
CARDIOLOGY FOLLOWUP DATE: 04/30/2017 SUBJECTIVE: The patient required transfusions yesterday from a vaginal bleeding while she was on heparin for her acute pulmonary embolism. Evaluated by DIRECTOR OF INSTITUTIONAL SALES who suggested an outpatient procedure which is not possible PHYSICAL EXAMINATION: VITAL SIGNS: Blood pressure 108/52, heart rate is 100, sinus tachycardia. NECK: Negative JVD. LUNGS: Without rales. HEART: With S1, S2. EXTREMITIES: Without edema. LABORATORY DATA: The glucose is 295. The hemoglobin is 8.0. IMPRESSION 1. Acute pulmonary embolism. 2. Vaginal bleeding, which is active 3. Marked anemia. 4. Dilated cardiomyopathy. PLAN: Given these findings, an outpatient procedure for her acute vaginal bleeding is not possible. The patient needs to have a definitive procedure to evaluate her vaginal bleeding. We cannot stop her anticoagulation given her acute pulmonary embolism. Florian Nguyễn MD
[2017-04-30] MEDS: Heparin 25,000units in D5W 25,000 UNITS/250 ML BAG IV PRN (15:58)
--- NOTE | 2017-04-30 16:09 | CP.PCM.PN ---
Subjective - Date & Time of Evaluation Date of Evaluation: 04/30/17 Time of Evaluation: 10:55 - Subjective Subjective: Comfortable, not in distress, no fevers. Still with left arm swelling but pain is a little better. Objective - Vital Signs/Intake and Output Vital Signs (last 24 hours): Temp Pulse Resp BP Pulse Ox 98.2 F 103 H 20 137/73 95 04/30/17 06:00 04/30/17 06:00 04/30/17 06:00 04/30/17 06:00 04/30/17 06:00 Intake and Output: 04/30/17 04/30/17 06:59 18:59 Intake Total 665 0 Output Total 1100 Balance 665 -1100 - Medications Medications: Current Medications Acetaminophen (Tylenol 325mg Tab) 650 mg PO Q4H PRN PRN Reason: Pain, moderate (4-7) Last Admin: 04/28/17 01:43 Dose: 650 mg Glimepiride (Amaryl) 4 mg PO DAILY [facility] Heparin Sodium/Dextrose (Heparin 25,000 Units/250ml In D5w) 25,000 units in 250 mls @ 19.105 mls/hr IV .Q13H6M PRN; Protocol; 18 UNITS/KG/HR PRN Reason: ADJUST RATE PER PROTOCOL Last Admin: 04/29/17 22:57 Dose: 13 units/kg/hr, 13.798 mls/hr Vancomycin HCl (Vancomycin 1gm) 1 g in 250 mls @ 167 mls/hr IVPB Q12H [facility] PRN Reason: Protocol Stop: 05/04/17 16:01 Last Admin: 04/30/17 03:28 Dose: 167 mls/hr Insulin Human Regular (Humulin R Med) 0 units SC ACHS [facility] PRN Reason: Protocol Last Admin: 04/30/17 08:34 Dose: 7 units Lisinopril (Zestril) 5 mg PO DAILY [facility] Last Admin: 04/29/17 09:11 Dose: 5 mg Oxycodone/Acetaminophen (Percocet 5/325 Mg Tab) 2 tab PO Q4H PRN PRN Reason: Pain, moderate (4-7) Stop: 05/01/17 14:48 Last Admin: 04/30/17 08:33 Dose: 2 tab Pantoprazole Sodium (Protonix Inj) 40 mg IVP Q12 [facility] Last Admin: 04/29/17 21:14 Dose: 40 mg - Labs Labs: 04/30/17 07:05 04/30/17 07:05 PT 11.9 Seconds (9.9-11.8) H 04/28/17 04:00 INR 1.10 (0.93-1.08) H 04/28/17 04:00 APTT 53.1 Seconds (23.7-30.8) H 04/30/17 07:05 - Constitutional Appears: Non-toxic, No Acute Distress - Head Exam Head Exam: NORMAL INSPECTION - ENT Exam ENT Exam: Mucous Membranes Moist - Neck Exam Neck Exam: absent: Lymphadenopathy, Meningismus - Respiratory Exam Respiratory Exam: Decreased Breath Sounds - Cardiovascular Exam Cardiovascular Exam: +S1, +S2 - GI/Abdominal Exam GI & Abdominal Exam: Soft. absent: Tenderness - Extremities Exam Additional comments: left arm with ecchymoses and swelling Assessment and Plan - Assessment and Plan (Free Text) Plan: Assessment Systemic Inflammatory response syndrome, consider reactive in relation to probable hematoma on the left arm, so far no source of sepsis identified acute pulmonary embolism, on anticoagulation vaginal bleeding, etiology to be determined HTN DM morbid obesity with BMI 44 Plan continue Vancomycin for now (day 2); currently does not have signs of pneumonia ; blood cx are negative x 1 day - if it continues to be negative by tomorrow, will d/c antibiotics reviewed CT scan of the left arm which does not show fluid collection will monitor clinically and trend WBC count
--- NOTE | 2017-04-30 19:49 | CON ---
PULMONARY CONSULTATION DATE: 04/30/2017 LOCATION: Room 268 HISTORY OF PRESENT ILLNESS: This is a 57-year-old female who presented to the emergency room with shortness of breath. This was over a week ago. The patient was diagnosed as having pulmonary emboli. At that time, pulmonology was not requested and is now day 7 or 8 that we were asked to evaluate this patient. She claims to be doing much better. She feels less short of breath. She has no complaints of the respiratory status. She is complaining of left arm pain, which is being worked up by the team. She has been seen by infectious disease. She has had ultrasound of the legs and arm and helical CT of the chest. FAMILY HISTORY: There is no family history of bleeding diathesis. The patient was driving for a long distance in the car from [place]. She has made this trip 14 times previously with no problems. The patient herself has had no problems with clotting or bleeding problems. She states she has hypertension, but no additional pathology. Not contributory. There is no bleeding problems as described above. There is hypertension in the family. SOCIAL HISTORY: The patient claims to be a nonsmoker. She does not use any illicit drugs. She has no travel history. ALLERGIES: NO KNOWN ALLERGIES. REVIEW OF SYSTEMS: Has been discussed with the patient. There were no acute problems noted other than increased weight. There has never been shortness of breath before. All other systems negative. PHYSICAL EXAMINATION: GENERAL: Today, she is comfortable. No acute respiratory distress. VITAL SIGNS: Heart rate 80, respiratory rate 16 to 18, blood pressure 120/70, and O2 sat 98%. HEENT: Negative. Eyes: PERRLA. EOM is full. Conjunctivae pink. NECK: Supple. No JVD. No lymphadenopathy. No bruit. No mass. No thyromegaly. HEART: Regular rhythm. S1 and S2 without murmur, gallop or rub. LUNGS: Clear to percussion and auscultation. No adventitious sounds. ABDOMEN: Soft. Bowel sounds normoactive without mass, guarding, rebound or organomegaly. EXTREMITIES: Reveal no clubbing or cyanosis. There is edema of the left forearm and other arm. There is redness at that area as well. The legs are apparently improved according to the patient. NEUROLOGIC: The patient is awake, alert, and oriented. Able to give all history and even know the names of her new doctors. She has no motor, sensory or coordination defects. I am just concerned about the look of her left forearm condition for which Dr. Ross has recently evaluated. Lymphadenopathy is not present. There are no abnormalities in the supraclavicular notch nor in the cervical, inguinal, axillary areas. LABORATORY STUDIES: Available at this time include initial CT of the chest done on the day of admission, which shows no nodules, masses or pneumonia, but extensive pulmonary emboli, near occlusive emboli in the left main pulmonary artery, and left upper low bronchi area. There is a clot in the right pulmonary artery as well. There is an enlargement in the right ventricle consistent with right ventricular strain. This CAT scan has reviewed by Dr. Florian Nguyễn in the past and Dr. Florian Zhang who was her vascular expert. Apparently, no decision was made to do any invasive thrombolytic therapy. Additional laboratory studies show a lower extremity ultrasound, which shows no sonographic evidence of deep vein thrombosis bilaterally and a more recent upper extremity ultrasound done on the 04/28/2017, which shows small fluid collection in the left axilla, but no evidence of DVT. Limited study however reviewed by Dr. Zhang. Laboratory studies include a white count of 16,000, up from 9000, hemoglobin of 8 down from 11 percent, granulocyte up to 75 from 64, monocytes 12.2 from 0.8. Coagulation as of the last study here today shows her PTT of 53, yesterday 68, D-dimer was never performed. No blood gas since the day of admission. Chemistries: Sodium level is only 130. Liver function is normal. EKG sinus rhythm non-specific ST-T wave changes. PROBLEMS: Consist of the followin. Large significant bilateral pulmonary emboli. 2. Vaginal bleeding. 3. Abnormality in the left upper extremity. 4. Cannot exclude hypercoagulable state although long distance driving can lead to this, but there is DVT noted in the lower extremities. Sensitivity? Please note, that the bleeding in the vaginal area needs further evaluation by BUS AIDE. It might be necessary to discontinue the heparin. If this continues to a greater extent, we must be prepared to put her on IVC filter in place, but with this large pulmonary embolism stopping anticoagulation is a probably poor choice. We will defer to Dr. Florian Zhang of vascular to decide if any further intervention is required. Please remember, the patient is feeling much better from a pulmonary point of view. Unfortunately, the patient has an elevated white blood cell count with a left upper extremity of unknown problem of unknown etiology, requires further intervention. PLAN: This patient is quiet ill. She should probably remain in the Intensive Care Unit. She must remained at complete bed rest. Further diagnostic evaluation of the legs and her left upper extremity need to done. Should she continue to improve this is a type of patient that will need serial studies to make sure that the clots have resolved. Hopefully, a ventilation perfusion scan would be sufficient, one cannot be done for at least 2 to 3 weeks to look for diminution of clots. The patient should have a animal technician see the patient in the interim. I will order some workup for hypercoagulable state. This should have been done prior to the initiation of heparin therapy but may be helpful at this time as well. Please note, that the patient is quiet ill and even though the patient looks better, I am concerned about the infectious process, elevated white cells, swelling and mass in the left upper extremity. Etiology remains unclear. Perhaps, even an oncologist/animal technician should be seeing this patient for hematologic evaluation as well as possible premalignant evaluation as is often the case and first episodes of pulmonary emboli. We will discuss with PND and others. It is very important that this received the utmost attention. I am not sure if the patient is on a teaching service, but the patient would benefit from having multiple doctors seeing her during the course of the day. And as this can be arranged, I believe it would helpful. Thank you for the opportunity to help in the care of this patient. Tirso Pineda MD ISMAEL
[2017-05-01] MEDS: Oxycodone/Acetaminophen 5/325 mg Tab PO PRN ×4 (02:03→22:23)
[2017-05-01] MEDS: Vancomycin 1gm in NS 250ml 1 G/250 ML BAG IVPB SCH (04:12)
[2017-05-01 07:48] LABS: ADD MANUAL DIFF? NO
[2017-05-01 07:51] LABS: BASO # 0.02 K/mm3 (0.0-2.0); BASO % 0.1 % (0.0-3.0); EOS # 0.4 (0.0-0.7); GRAN # 9.98 (1.4-6.5); GRAN % 72.5 % (50.0-68.0); LYMPH # 2.3 (1.2-3.4); LYMPH % 16.4 % (22.0-35.0); MEAN CELL VOLUME 89.5 fl (80.0-105.0); MEAN CORPUSCULAR HEMOGLOBIN 29.8 pg (25.0-35.0); MEAN CORPUSCULAR HGB CONC 33.3 g/dl (31.0-37.0); MEAN PLATELET VOLUME 8.9 fl (7.0-11.0); MONO # 1.1 (0.1-0.6); PLATELET COUNT 270 10^3/uL (120.0-450.0); RED CELL DISTRIBUTION WIDTH 13.7 % (11.5-14.5); WHITE BLOOD COUNT 13.8 10^3/ul (4.5-11.0)
[2017-05-01 08:02] LABS: HEMATOCRIT 22.2 % (36.0-48.0)
[2017-05-01 08:08] LABS: ALB/GLOB RATIO 0.9 (1.1-1.8); ALKALINE PHOSPHATASE 85 U/L (38-133); ALT/SGPT 39 U/L (7-56); AST/SGOT 33 U/L (15-39); BILIRUBIN,TOTAL 0.6 mg/dL (0.2-1.3); BLOOD UREA NITROGEN 14 mg/dL (7-21); CALCIUM 8.2 mg/dL (8.4-10.5); CARBON DIOXIDE 27 mmol/L (21-33); CHLORIDE 95 mmol/L (98-107); GFR AFRICAN-AMERICAN > 60; GLUCOSE,RANDOM 267 mg/dL (70-110); POTASSIUM 4.1 mmol/L (3.6-5.0); SODIUM 129 mmol/L (132-148); TOTAL PROTEIN 5.9 g/dL (5.8-8.3)
[2017-05-01] MEDS: Insulin Reg-MEDIUM-Coverage SC SCH ×4 (09:03→22:00)
[2017-05-01] MEDS ORDERED: Iohexol 350 MG/100 ML VIAL ONE (10:38)
[2017-05-01] MEDS ORDERED: Iodixanol 320 MG/ML 200 ML BOTTLE IV ONE (11:35)
[2017-05-01] MEDS ORDERED: Iodixanol 320 MG/ML 100 ML BOTTLE IV ONE (11:35)
[2017-05-01] MEDS ORDERED: Midazolam 2 MG/2 ML VIAL ONE ×2 (11:35→13:50)
[2017-05-01] MEDS ORDERED: Lidocaine 2% Inj (20ml) ONE (11:35)
--- NOTE | 2017-05-01 11:56 | PN ---
DAILY PROGRESS NOTE DATE: 05/01/2017 SUBJECTIVE: The patient is seen and examined at bedside on the telemetry hinkle. No acute events overnight. The patient is noted to have persistent vaginal bleeding albeit somewhat improved. The patient has not yet used the bathroom this morning, so she is unable to assess how saturated her vaginal pad may be this morning. Otherwise, she continues to complain of left upper extremity discomfort, but states that is adequately controlled with her analgesic regimen and offers no other complaints. OBJECTIVE: VITAL SIGNS: Temperature 98.3, pulse 103, blood pressure 116/64, respiratory rate 19, oxygen saturation 95% on 3 liters nasal cannula. GENERAL: Mild distress secondary to left upper extremity pain. HEENT: PERRL. EOMI. No scleral icterus. Mild conjunctival pallor is noted. NECK: No JVD. LUNGS: Decreased breath sounds at bases. Otherwise, clear to auscultation. CARDIOVASCULAR: Tachycardic. Normal S1 and S2. Grade 2/6 systolic ejection murmur to right upper sternal border. ABDOMEN: Obese. Normoactive bowel sounds. Soft, nontender, nondistended. EXTREMITIES: Left upper extremity is tense to the upper arm with significant ecchymosis formation. Lower extremities are without edema. NEUROLOGIC: Awake, alert and oriented x3. No focal motor deficits. LABORATORY DATA: WBC 13.8 with 73% neutrophils, hemoglobin 7.4, hematocrit 22, platelets 270. Blood cultures with no growth to date. Urine cultures with no growth to date. ASSESSMENT AND PLAN: The patient is a 57-year-old woman with hypertension, type 2 diabetes mellitus, and morbid obesity who is admitted to the ICU status post provoked bilateral pulmonary emboli, status post diabetic ketoacidosis, who is now status post transfer out of the ICU to the telemetry hinkle with continued management for extensive bilateral pulmonary emboli and ongoing vaginal bleed. PLAN: 1. Bilateral pulmonary emboli, provoked. The patient is status pos administration of TPA in the ICU and remains on the heparin drip. Input from Dr. Pineda of Pulmonary and Critical Care are noted and greatly appreciated. A hypercoagulability workup has been sent as per Dr. Pineda. Dr. Pineda and I had an extensive conversation this morning regarding the patient and we understand that at this point, hypercoagulability workup may be skewed given the fact that the patient has already been on a heparin drip for the past week. We also discussed the possibility of discontinuing anticoagulation therapy and pursuing an IVC filter placement if hemostasis cannot be achieved with ongoing vaginal bleed. 2. Vaginal bleed, input from Dr. Alonso, RECYCLING MANAGER noted and appreciated. Per her recommendations, the patient has been started on Provera 20 mg p.o. daily. We will continue to monitor CBC daily and transfuse to goal hemoglobin greater than 8. 3. Symptomatic anemia secondary to vaginal bleed. Continue with care as per #2. We will also start Feosol 325 mg p.o. daily, so as not to deplete the patient's iron stores. 4. Dilated cardiomyopathy. Input from Dr. Nguyễn noted and appreciated. The patient remains euvolemic at present and hemodynamically stable. Continue with care as per Dr. Nguyễn. 5. SIRS syndrome, rule out sepsis. Input from Dr. Ross of Infectious Disease noted and appreciated, The patient remains afebrile and hemodynamically stable and with negative blood cultures to date. We will defer antimicrobial management to Dr. Ross. 6. Left upper extremity ecchymosis. CT of the extremity is reviewed and demonstrates no fluid collection. Continue with compressors and Percocet 5/325 mg 2 tabs p.o. q. 6 hours p.r.n. pain. 7. Hypertension. Blood pressure controlled. Continue with lisinopril 5 mg p.o. daily. 8. Type 2 diabetes mellitus, status post DKA. We will increase to a high dose insulin sliding scale and continue with glimepiride 4 mg p.o. daily. Continue to monitor fingersticks q. a.c. and at bedtime. 9. Prophylaxis. Continue with Protonix for GI prophylaxis. The patient remains on heparin drip for her acute PE. CODE STATUS: FULL CODE. Jorge Nguyen MD
--- NOTE | 2017-05-01 13:47 | PN ---
DATE: 05/01/2017 HISTORY: The patient is 57-year-old. She is feeling better. She was found to have significant pulmonary emboli. While on anticoagulation, she developed vaginal bleeding. This continues and is yet to stop. She is receiving medications. She was seen by [employer] DESIGNER. The patient's respiratory status has improved. She remains on heparin. The size of this clot is significant so that further intervention is certainly required. I have already ordered hypercoagulable state items and I am awaiting the results which have not yet been revealed on the patient record. No additional history is obtained to this time. PHYSICAL EXAMINATION: GENERAL: The patient is resting in no acute distress except just not feeling well in general. VITAL SIGNS: Stable. O2 sat on room air 98%. Blood pressure 120/70, respiratory rate 16, heart rate 80, temperature afebrile. HEENT: Normocephalic, atraumatic. Eyes PERRLA. EOM is full. Conjunctivae pink. NECK: Supple. No JVD. No lymphadenopathy. No bruit. No mass. No thyromegaly. HEART: Regular rhythm, S1 and S2 without murmur, gallop or rub. CHEST: Lungs are clear to percussion and auscultation. There is good air movement. No adventitious sounds. ABDOMEN: Soft. Bowel sounds normoactive without mass, guarding, rebound or organomegaly. EXTREMITIES: Reveal no clubbing, cyanosis or edema except in the left upper lobe which shows significant redness, swelling, and signs of possible infection. NEUROLOGIC: No focal findings. Vaginal bleeding is noted by the RN and PMD. LABORATORY DATA: Laboratory studies have not yet changed. IMPRESSION: 1. Large bilateral pulmonary emboli. 2. Vaginal bleeding. 3. Left upper extremity scarring, edema, infection. Infectious etiology suspected. 4. Must rule out hypercoagulable state. No DVT is noted on the venous Dopplers. Await further evaluation by PER DIEM RN. Dr. Zhang is seeing this patient both for the left upper extremity as well as the possible etiology of PE and possibly the need for an IVC filter down the line. PLAN: Continue vigorous support, await further workup of vaginal bleeding and left upper activity cellulitis and/or phlebitis. Await hypercoagulable state workup. Await hematology regarding hypercoagulable state and/or additional hematologic problems. We definitely recommend a follow-up radiographic study within 4 to 8 weeks regarding resolution of previous deficits seen on helical CT of chest. We would like to be assured that the clots have resolved and that the anticoagulation is therapeutic and removing the possibility of persistent new clotting. The problems are great, and although the case seems simple on the surface, it is not. Things that we are concerned about includes: 1. Size of the embolism noted. 2. Left upper extremity abnormalities. 3. Vaginal bleeding. 4. Need for anticoagulation etc. We will follow closely with you in hospital and out. I have discussed at length the problems discussed above with Dr. Jorge Nguyen. We will work together and following these closely while awaiting followup hematology and continued evaluation by vascular. Thank you for the opportunity to see this patient closely. Tirso Pineda MD MTDD
--- NOTE | 2017-05-01 13:56 | CT ---
PROCEDURE: CT Chest, Abdomen and Pelvis with intravenous contrast HISTORY: R/o malignancy, Pre and post contrast liver. COMPARISON: CT chest dated 04/23/2017. TECHNIQUE: IV dose administered: 100 cc of Omnipaque 350 Radiation dose: Total exam DLP = 2452 mGy-cm. This CT exam was performed using one or more of the following dose reduction techniques: Automated exposure control, adjustment of the mA and/or kV according to patient size, and/or use of iterative reconstruction technique. FINDINGS: CT CHEST WITH CONTRAST: LUNGS: Clear. No nodule, mass or consolidation. MEDIASTINUM: Re-demonstration of extensive bilateral pulmonary emboli.. Normal caliber aorta and pulmonary arterial trunk. No aortic dissection. Normal size heart. LYMPH NODES: Unremarkable. PLEURA: Unremarkable. No pneumothorax. No pleural fluid. BONES: Unremarkable. OTHER FINDINGS: None. CT ABDOMEN AND PELVIS: LIVER: Unremarkable. No gross lesion or ductal dilatation. GALLBLADDER AND BILE DUCTS: Unremarkable. PANCREAS: Unremarkable. No gross lesion or ductal dilatation. SPLEEN: Unremarkable. ADRENALS: Unremarkable. No mass. KIDNEYS AND URETERS: Unremarkable. No hydronephrosis. No solid mass. VASCULATURE: Unremarkable. No aortic aneurysm. BOWEL: Colonic diverticulosis.. No obstruction. No gross mural thickening. APPENDIX: Normal appendix. PERITONEUM: Unremarkable. No free fluid. No free air. LYMPH NODES: Unremarkable. No enlarged lymph nodes. BLADDER: Unremarkable. REPRODUCTIVE: Unremarkable. BONES: No acute fracture. OTHER FINDINGS: None. IMPRESSION: Re-demonstration of extensive bilateral pulmonary emboli. No evidence of malignancy.
[2017-05-01] MEDS ORDERED: Sodium Chloride 0.45% 1,000 ML IV SCH (14:30)
--- NOTE | 2017-05-01 14:30 | CP.PCM.CON ---
History of Present Illness - History of Present Illness History of Present Illness: Consult note for Dr Roach: 57 F with pmh of HTN who initially presented to the ED with complaint of acute onset shortness of breath. Pt had just got back from >10 hr drive back from [place] when her shortness of breath started. Here in the ED she was found to have massive PE and TPA was administered. Pt was than placed on heparin drip. She is currently hemodynamically stable. Pt is also have some vaginal bleeding; transvaginal US showed endometrial thickening; OBGYN recommended outpatient endometrial biopsy. Pt also developed a L upper extremity swelling - US of upper extremity was negative for DVT and CT of upper ext showed soft tissue swelling. She currently denies any chest pain or shortness of breath. Still c/o L upper extremity swelling and pain. No other complaints. Pmh: HTN PSH: denies Med: refer to MAR ALL: NKA SH: denies smoking, drinking, or drug usage FH: denies Review of Systems - Review of Systems All systems: reviewed and no additional remarkable complaints except Past Patient History - Past Social History Smoking Status: Never Smoked - CARDIAC Hx Cardiac Disorders: Yes Hx Hypertension: Yes - PULMONARY Hx Respiratory Disorders: Yes (PULMONARY EMBOLISM 04-23-17) - NEUROLOGICAL Hx Neurological Disorder: No - HEENT Hx HEENT Problems: Yes (STRABISMUS WITH SX.) - ENDOCRINE/METABOLIC Hx Diabetes Mellitus Type 2: Yes - HEMATOLOGICAL/ONCOLOGICAL Hx Blood Disorders: No - INTEGUMENTARY Hx Dermatological Problems: No - MUSCULOSKELETAL/RHEUMATOLOGICAL Hx Musculoskeletal Disorders: No Hx Falls: No - GASTROINTESTINAL Hx Gastrointestinal Disorders: No - GENITOURINARY/GYNECOLOGICAL Hx Genitourinary Disorders: No - PSYCHIATRIC Hx Psychophysiologic Disorder: No Hx Substance Use: No - SURGICAL HISTORY Hx Surgeries: Yes (EYE SX"LAZY EYE") - ANESTHESIA Hx Anesthesia: No Meds Allergies/Adverse Reactions: Allergies Allergy/AdvReac Type Severity Reaction Status Date / Time No Known Allergies Allergy Verified 04/23/17 12:08 - Medications Medications: Current Medications Acetaminophen (Tylenol 325mg Tab) 650 mg PO Q4H PRN PRN Reason: Pain, moderate (4-7) Last Admin: 04/28/17 01:43 Dose: 650 mg Ferrous Sulfate (Feosol) 324 mg PO TID [facility] Last Admin: 05/01/17 14:13 Dose: Not Given Glimepiride (Amaryl) 4 mg PO DAILY [facility] Last Admin: 05/01/17 09:04 Dose: 4 mg Heparin Sodium/Dextrose (Heparin 25,000 Units/250ml In D5w) 25,000 units in 250 mls @ 19.105 mls/hr IV .Q13H6M PRN; Protocol; 18 UNITS/KG/HR PRN Reason: ADJUST RATE PER PROTOCOL Last Titration: 05/01/17 11:04 Dose: 13 units/kg/hr, 13.798 mls/hr Vancomycin HCl (Vancomycin 1gm) 1 g in 250 mls @ 167 mls/hr IVPB Q12H [facility] PRN Reason: Protocol Stop: 05/04/17 16:01 Last Admin: 05/01/17 04:12 Dose: 167 mls/hr Sodium Chloride (Sodium Chloride 0.45%) 1,000 mls @ 80 mls/hr IV .[id number] [facility] Stop: 05/02/17 08:00 Insulin Human Regular (Humulin R Med) 0 units SC ACHS [facility] PRN Reason: Protocol Last Admin: 05/01/17 13:49 Dose: Not Given Lisinopril (Zestril) 5 mg PO DAILY [facility] Last Admin: 05/01/17 09:08 Dose: Not Given Medroxyprogesterone Acetate (Provera) 20 mg PO DAILY [facility] Last Admin: 05/01/17 09:07 Dose: 20 mg Oxycodone/Acetaminophen (Percocet 5/325 Mg Tab) 2 tab PO Q4H PRN PRN Reason: Pain, moderate (4-7) Stop: 05/01/17 14:48 Last Admin: 05/01/17 09:05 Dose: 2 tab Pantoprazole Sodium (Protonix Inj) 40 mg IVP Q12 [facility] Last Admin: 05/01/17 09:06 Dose: 40 mg Physical Exam - Constitutional Appears: No Acute Distress - Head Exam Head Exam: ATRAUMATIC - Eye Exam Eye Exam: EOMI, PERRL - ENT Exam ENT Exam: Mucous Membranes Moist - Respiratory Exam Respiratory Exam: Clear to Auscultation Bilateral. absent: Rales, Wheezes - Cardiovascular Exam Cardiovascular Exam: RRR, +S1, +S2 - GI/Abdominal Exam GI & Abdominal Exam: Normal Bowel Sounds, Soft. absent: Tenderness - Neurological Exam Neurological exam: Alert, Oriented x3 - Skin Skin Exam: Intact, Normal Color, Warm Results - Vital Signs Recent Vital Signs: Last Vital Signs Temp 98.3 F 05/01/17 00:01 Pulse 101 H 05/01/17 09:08 Resp 19 05/01/17 00:01 BP 102/54 L 05/01/17 09:08 Pulse Ox 95 04/30/17 06:00 - Labs Result Diagrams: 05/01/17 07:30 05/01/17 07:30 Labs: Laboratory Results - last 24 hr 04/29/17 04/30/17 04/30/17 06:40 11:29 11:29 WBC RBC Hgb Hct MCV MCH MCHC RDW Plt Count MPV Gran % Lymph % (Auto) [place] % (Auto) Eos % (Auto) Baso % (Auto) Gran # Lymph # [place] # Eos # Baso # Haptoglobin 277 H APTT Sodium Potassium Chloride Carbon Dioxide Anion Gap BUN Creatinine Est GFR ( Amer) Est GFR (Non-Af Amer) POC Glucose (mg/dL) Random Glucose Calcium Total Bilirubin AST ALT Alkaline Phosphatase Total Protein Albumin Globulin Albumin/Globulin Ratio Homocysteine 7.0 CHATO Screen Negative Blood Type A POSITIVE Antibody Screen Negative Crossmatch See Detail BBK History Checked No verified bt 04/30/17 04/30/17 05/01/17 16:23 22:01 02:02 WBC RBC Hgb Hct MCV MCH MCHC RDW Plt Count MPV Gran % Lymph % (Auto) [place] % (Auto) Eos % (Auto) Baso % (Auto) Gran # Lymph # [place] # Eos # Baso # Haptoglobin APTT Sodium Potassium Chloride Carbon Dioxide Anion Gap BUN Creatinine Est GFR ( Amer) Est GFR (Non-Af Amer) POC Glucose (mg/dL) 208 H 330 H 319 H Random Glucose Calcium Total Bilirubin AST ALT Alkaline Phosphatase Total Protein Albumin Globulin Albumin/Globulin Ratio Homocysteine CHATO Screen Blood Type Antibody Screen Crossmatch BBK History Checked 05/01/17 05/01/17 05/01/17 07:30 07:30 07:30 WBC 13.8 H RBC 2.48 L Hgb 7.4 L Hct 22.2 L MCV 89.5 MCH 29.8 MCHC 33.3 RDW 13.7 Plt Count 270 MPV 8.9 Gran % 72.5 H Lymph % (Auto) 16.4 L [place] % (Auto) 8.0 H Eos % (Auto) 3.0 Baso % (Auto) 0.1 Gran # 9.98 H Lymph # 2.3 [place] # 1.1 H Eos # 0.4 Baso # 0.02 Haptoglobin APTT 57.8 H Sodium 129 L Potassium 4.1 Chloride 95 L Carbon Dioxide 27 Anion Gap 11 BUN 14 Creatinine 0.7 Est GFR ( Amer) > 60 Est GFR (Non-Af Amer) > 60 POC Glucose (mg/dL) Random Glucose 267 H Calcium 8.2 L Total Bilirubin 0.6 AST 33 ALT 39 Alkaline Phosphatase 85 Total Protein 5.9 Albumin 2.8 L Globulin 3.1 Albumin/Globulin Ratio 0.9 L Homocysteine CHATO Screen Blood Type Antibody Screen Crossmatch BBK History Checked 05/01/17 07:35 WBC RBC Hgb Hct MCV MCH MCHC RDW Plt Count MPV Gran % Lymph % (Auto) [place] % (Auto) Eos % (Auto) Baso % (Auto) Gran # Lymph # [place] # Eos # Baso # Haptoglobin APTT Sodium Potassium Chloride Carbon Dioxide Anion Gap BUN Creatinine Est GFR ( Amer) Est GFR (Non-Af Amer) POC Glucose (mg/dL) 343 H Random Glucose Calcium Total Bilirubin AST ALT Alkaline Phosphatase Total Protein Albumin Globulin Albumin/Globulin Ratio Homocysteine CHATO Screen Blood Type Antibody Screen Crossmatch BBK History Checked Assessment & Plan - Assessment and Plan (Free Text) Assessment: 57 F presented to the ED with complaint of acute onset shortness of breath found to have massive PE and TPA was administered, currently on heparin drip. Pt is also have some vaginal bleeding; transvaginal US showed endometrial thickening; OBGYN recommended outpatient endometrial biopsy. Pt also developed a L upper extremity swelling - US of upper extremity was negative for DVT and CT of upper ext showed soft tissue swelling. - Ordered fibrinogen, Fact 8 activity, Lipoprotein A - F/u hypercoagubility work up - Cont Heparin ggt - CT chest abd & pelvis with and with out IV contrast - to r/o any malignancy as a cause for the hypercoagubility - F/u [employer] SUPER[employer]OR recs - started on Progesterone - F/u ID recs - On vanco - F/u cardio recs - Daily labs Thank you for the courtesy of the consult. Will follow closely. Case and plan was reviewed an discussed with Dr Roach.
--- NOTE | 2017-05-01 15:22 | PN ---
DATE: 05/01/2017 SUBJECTIVE: The patient is in the labor delivery specialist for IVC filter today. OBJECTIVE: VITAL SIGNS: Blood pressure is 102/54, heart rate is approximately 100. NECK: Negative JVD. LUNGS: Without rales. HEART: S1, S2. EXTREMITIES: Without change. LABORATORY DATA: Hemoglobin is 7.4. Chemistries, BUN and creatinine are noted. IMPRESSION: 1. Acute pulmonary embolism. 2. Continue vaginal bleeding. 3. Diabetes mellitus. 4. Dilated cardiomyopathy. PLAN: Given these findings, the patient's IVC filter is placed to protect her from recurrent pulmonary embolism. We will need to make decisions on whether to continue anticoagulation while she is having vaginal bleeding. May need to transfuse again. Florian Nguyễn MD
--- NOTE | 2017-05-01 16:01 | CP.PCM.PN ---
Subjective - Date & Time of Evaluation Date of Evaluation: 05/01/17 Time of Evaluation: 10:15 - Subjective Subjective: Comfortable, not in distress, afebrile, still with left arm pain. Objective - Vital Signs/Intake and Output Vital Signs (last 24 hours): Temp Pulse Resp BP Pulse Ox 98.3 F 103 H 19 116/64 95 05/01/17 00:01 05/01/17 02:00 05/01/17 00:01 05/01/17 00:01 04/30/17 06:00 Intake and Output: 05/01/17 05/01/17 06:59 18:59 Intake Total 240 Output Total 0 Balance 240 - Medications Medications: Current Medications Acetaminophen (Tylenol 325mg Tab) 650 mg PO Q4H PRN PRN Reason: Pain, moderate (4-7) Last Admin: 04/28/17 01:43 Dose: 650 mg Ferrous Sulfate (Feosol) 324 mg PO TID [facility] Glimepiride (Amaryl) 4 mg PO DAILY [facility] Last Admin: 04/30/17 09:34 Dose: 4 mg Heparin Sodium/Dextrose (Heparin 25,000 Units/250ml In D5w) 25,000 units in 250 mls @ 19.105 mls/hr IV .Q13H6M PRN; Protocol; 18 UNITS/KG/HR PRN Reason: ADJUST RATE PER PROTOCOL Last Admin: 04/30/17 15:58 Dose: 13 units/kg/hr, 13.798 mls/hr Vancomycin HCl (Vancomycin 1gm) 1 g in 250 mls @ 167 mls/hr IVPB Q12H [facility] PRN Reason: Protocol Stop: 05/04/17 16:01 Last Admin: 05/01/17 04:12 Dose: 167 mls/hr Insulin Human Regular (Humulin R Med) 0 units SC ACHS [facility] PRN Reason: Protocol Last Admin: 04/30/17 22:34 Dose: 2 units Lisinopril (Zestril) 5 mg PO DAILY [facility] Last Admin: 04/30/17 09:37 Dose: 5 mg Medroxyprogesterone Acetate (Provera) 20 mg PO DAILY [facility] Oxycodone/Acetaminophen (Percocet 5/325 Mg Tab) 2 tab PO Q4H PRN PRN Reason: Pain, moderate (4-7) Stop: 05/01/17 14:48 Last Admin: 05/01/17 02:03 Dose: 2 tab Pantoprazole Sodium (Protonix Inj) 40 mg IVP Q12 [facility] Last Admin: 04/30/17 22:35 Dose: 40 mg - Labs Labs: 05/01/17 07:30 05/01/17 07:30 PT 11.9 Seconds (9.9-11.8) H 04/28/17 04:00 INR 1.10 (0.93-1.08) H 04/28/17 04:00 APTT 57.8 Seconds (23.7-30.8) H 05/01/17 07:30 - Constitutional Appears: Non-toxic, No Acute Distress - Head Exam Head Exam: NORMAL INSPECTION - ENT Exam ENT Exam: Mucous Membranes Moist - Neck Exam Neck Exam: absent: Meningismus - Respiratory Exam Respiratory Exam: Decreased Breath Sounds - Cardiovascular Exam Cardiovascular Exam: +S1, +S2 - GI/Abdominal Exam GI & Abdominal Exam: Soft. absent: Tenderness - Extremities Exam Additional comments: left arm with swelling and ecchymoses Assessment and Plan - Assessment and Plan (Free Text) Plan: Assessment Systemic Inflammatory response syndrome, consider reactive in relation to probable hematoma on the left arm, so far no source of sepsis identified acute pulmonary embolism, on anticoagulation vaginal bleeding, etiology to be determined HTN DM morbid obesity with BMI 44 Plan currently does not have signs of pneumonia; blood and urine cx are negative - will d/c antibiotics and observe reviewed CT scan of the left arm which does not show fluid collection will continue to monitor clinically and trend WBC count
[2017-05-01 16:17] LABS: C-REACTIVE PROTEIN 16.4 mg/dL (<0.8)
--- NOTE | 2017-05-01 21:07 | VASCULAR ---
PROCEDURE: IVC Filter placement HISTORY: Massive pulmonary embolus. Status post tPA. Persistent vaginal bleeding requiring transfusion. Needs IVC filter PHYSICIAN(S): Florian Zhang MD. TECHNIQUE: The relative risks and indications of the procedure were explained to the patient and consent obtained. The patient was placed supine on the arteriogram table the right groin prepped and draped usual sterile fashion. Conscious sedation and monitoring were provided throughout the procedure by a nurse. Under ultrasound guidance, the right common femoral vein was punctured. A 5 Israeli sheath was placed. The guidewire and flush catheter were advanced over the IVC bifurcation and placed in the left iliac venous system. A PA DSA IVC gram was performed with emphasis on the renal veins. Exchange was made for a support wire placed in the right atrium. The 6.5 Israeli sheath was advanced to the level of the renal veins. Next a argon retrievable filter was deployed in the infrarenal IVC at the level of L1-L2. A post deployment cavagram was performed through the introducer sheath. The sheath was removed and hemostasis obtained. Patient tolerated the procedure well. FINDINGS: The visualized iliac veins and IVC are normal. No evidence of IVC thrombus or anomaly is seen. The renal veins are easily identified. The argon retrievable filter was deployed and is in good position at the level of L1-L2. IMPRESSION: 1. No evidence of IVC anomaly or thrombus. 2. Successful deployment of a argon retrievable filter in the infrarenal IVC at the level of L1-L2.
[2017-05-02 08:12] LABS: ADD MANUAL DIFF? NO
[2017-05-02 08:16] LABS: BASO # 0.02 K/mm3 (0.0-2.0); BASO % 0.2 % (0.0-3.0); EOS # 0.3 (0.0-0.7); EOS % 3.4 % (1.5-5.0); GRAN # 6.58 (1.4-6.5); GRAN % 65.4 % (50.0-68.0); LYMPH # 2.1 (1.2-3.4); LYMPH % 20.4 % (22.0-35.0); MEAN CORPUSCULAR HEMOGLOBIN 29.9 pg (25.0-35.0); MEAN CORPUSCULAR HGB CONC 33.6 g/dl (31.0-37.0); MONO # 1.1 (0.1-0.6); MONO % 10.6 % (1.0-6.0); PLATELET COUNT 269 10^3/uL (120.0-450.0); RED CELL DISTRIBUTION WIDTH 14.2 % (11.5-14.5); WHITE BLOOD COUNT 10.1 10^3/ul (4.5-11.0)
[2017-05-02] MEDS: Insulin Reg-MEDIUM-Coverage SC SCH ×3 (08:16→17:26)
[2017-05-02 08:33] LABS: ALB/GLOB RATIO 0.9 (1.1-1.8); ALKALINE PHOSPHATASE 68 U/L (38-133); ALT/SGPT 36 U/L (7-56); AST/SGOT 27 U/L (15-39); BILIRUBIN,TOTAL 0.6 mg/dL (0.2-1.3); BLOOD UREA NITROGEN 12 mg/dL (7-21); CALCIUM 7.9 mg/dL (8.4-10.5); CARBON DIOXIDE 27 mmol/L (21-33); CHLORIDE 97 mmol/L (95-110); GFR AFRICAN-AMERICAN > 60; GLUCOSE,RANDOM 252 mg/dL (70-110); POTASSIUM 3.9 mmol/L (3.6-5.0); SODIUM 131 mmol/L (132-148); TOTAL PROTEIN 5.8 g/dL (5.8-8.3)
[2017-05-02 08:56] LABS: HEMATOCRIT 23.5 % (36.0-48.0)
[2017-05-02] MEDS: Heparin 25,000units in D5W 25,000 UNITS/250 ML BAG IV PRN (10:06)
--- NOTE | 2017-05-02 10:31 | PN ---
DATE: 05/02/2017 SUBJECTIVE: The patient is markedly improved today. She feels better. Vaginal bleeding seems to have stopped according to the patient. She is feeling better. COLLECT ON DELIVERY CLERK has not yet come back to see the patient. She was seen by Dr. Nguyễn who did a cardiac catheterization finding cardiomyopathy as well as having an IVC filter placement by Dr. Florian Zhang in case anticoagulation needed to be stopped. I had a long discussion this morning with Dr. Jorge Nguyen. We have discussed the case carefully. We are both concerned about the presence of possible bleeding, but we are happy that the IVC filter is in place. We have decided to begin anticoagulation orally with Coumadin and monitor closely. If we find that there is any further bleeding or return of bleeding in the vaginal area, this will need to be stopped. We see that some orders were done by hematology, but there are no notes on the chart as of today. It is important to get their input prior to making any further decisions. PHYSICAL EXAMINATION GENERAL: The patient is resting comfortably in no acute respiratory distress. VITAL SIGNS: Stable. Afebrile. Blood pressure 120/70, heart rate 82, respiratory rate 16, oxygen sat 98%. HEENT: Normocephalic, atraumatic. Eyes, PERRLA. EOM is full. Conjunctivae pink. NECK: Supple. No JVD. No lymphadenopathy. No bruit or mass. No thyromegaly. Nothing has changed in the exam. HEART: Regular rhythm. S1 and S2 without murmur, gallop, or rub. CHEST: Lungs are essentially clear to percussion and auscultation. Good air movement. No adventitious sounds. No decreased breath sounds at the bases whatsoever. ABDOMEN: Soft. Bowel sounds normoactive without mass, guarding, rebound, or organomegaly. EXTREMITIES: Reveal no clubbing, cyanosis, or edema. There is no Homans sign. There is, however, left upper extremity which is still infected. The patient will be followed by infectious disease weight loss consultant. GENITOURINARY: Vaginal bleeding is apparently negative according to the patient. IMPRESSION: 1. Very large pulmonary emboli. 2. Vaginal bleeding. 3. Cardiomyopathy. 4. Left upper extremity infection. Hematology evaluation is still pending. Hospital events noted. Input by Dr. Zhang and Dr. Nguyễn had been noted and stated above. PLAN: Continue vigorous supportive care. Await heme/onc evaluation. Consider changing to p.o. Coumadin. Monitor any sources of bleeding with hemoglobin, etc. while on that medication. Again, strongly request a followup V/Q scan in approximately 6 weeks to be done as an outpatient, but follow very closely by Dr. Jorge Nguyen and myself . We must follow this patient closely as there are still certain loose ends that have not been completely tied. We have discussed these problems with the patient, and she is aware of what needs to be done. Our plans have been discussed with her, and she is aware. I have answered all her questions that she has regarding this problem. Tirso Pineda MD
[2017-05-02] MEDS: Oxycodone/Acetaminophen 5/325 mg Tab PO PRN ×2 (10:52→17:50)
--- NOTE | 2017-05-02 11:53 | PN ---
SUBJECTIVE: The patient was seen and examined at bedside on the telemetry hinkle. No acute events overnight. She remains afebrile and hemodynamically stable. The patient is status post transfusion of 1 unit PRBC for morning labs demonstrating a hemoglobin of 7.4 and repeat labs are pending. The patient appears to be in better spirits this morning and states she feels okay and improved as compared to yesterday. She continues to endorsed vaginal bleeding but states that it appears somewhat improved as compared to prior. Otherwise, she offers no complaints. OBJECTIVE: VITAL SIGNS: Temperature 98.5, pulse 91, blood pressure 119/77, respiratory rate 20, oxygen saturation 96% on 2 liters nasal cannula. GENERAL: No apparent distress. HEENT: PERRL. EOMI. No scleral icterus. Mild conjunctival pallor is noted. NECK: No JVD. LUNGS: Decreased breath sounds at bases. Otherwise, clear to auscultation. CARDIOVASCULAR: Regular rate and rhythm. Normal S1 and S2. Grade 2/6 systolic ejection murmur to right upper sternal border. ABDOMEN: Obese. Normoactive bowel sounds. Soft, nontender, nondistended. EXTREMITIES: Left upper extremity with significant ecchymosis. Lower extremities without trace edema. NEUROLOGIC: Awake, alert and oriented x3. No focal motor deficits. LABORATORY DATA: Morning labs are pending. Blood cultures with no growth to date. Urine cultures with no growth to date. ASSESSMENT: The patient is a 57-year-old woman with hypertension, type 2 diabetes mellitus, and morbid obesity who was initially admitted to the ICU status post provoked bilateral pulmonary emboli and with diabetic ketoacidosis, who is now status post transfer out of the ICU and maintained on the telemetry hinkle for continued management of bilateral pulmonary emboli and ongoing vaginal bleed. PLAN: 1. Bilateral pulmonary emboli, provoked. The patient is status post TPA in the ICU and remains on the heparin drip. Input from Dr. Pineda of pulmonary and critical care medicine are noted and greatly appreciated. A hypercoagulable workup has been sent and is pending. The patient is also status post IVC filter placement in the event that we need to terminate anticoagulation therapy given her vaginal bleed. Given the improvement in her bleeding this morning, we may consider transitioning to oral anticoagulation therapy with bridging while on heparin. 2. Vaginal bleed, input from Dr. Alonso of PROJECT ADMIN noted and appreciated, and the patient remains on Provera 20 mg p.o. daily. Continue to monitor CBC daily and transfuse to goal hemoglobin greater than 8. 3. Symptomatic anemia secondary to vaginal bleed. Continue with care as per # 2. Continue with Feosol 325 mg p.o. t.i.d. 4. Dilated cardiomyopathy. Input from Dr. Nguyễn noted and appreciated. Continue with care as per Dr. Nguyễn. Given the multiple blood transfusions, the patient has received as well as IV fluid resuscitation status post her IVC filter placement, we will administer Lasix 40 mg IV x1. 5. SIRS syndrome, no evidence of sepsis. Input from Dr. Ross of infectious disease noted and appreciated, and antimicrobials have been discontinued. Given that the patient is afebrile, hemodynamically stable and with negative cultures. 6. Left upper extremity ecchymosis. Continue with compressions and Percocet 5/ 325 mg 2 tabs p.o. q. 4 hours p.r.n. pain. 7. Hypertension. Blood pressure controlled. Continue with lisinopril 5 mg p.o. daily. 8. Type 2 diabetes mellitus. Continue with medium dose insulin sliding scale and glimepiride 4 mg p.o. daily. Continue to monitor fingersticks q.a.c. and at bedtime. 9. Prophylaxis. GI prophylaxis is not indicated. This patient is eating. The patient remains on heparin for her acute PE. CODE STATUS: Full code. Jorge Nguyen MD MTDD
--- NOTE | 2017-05-02 12:21 | PN ---
DATE: 05/02/2017 SUBJECTIVE: The patient is in a chair, comfortable without shortness of breath. PHYSICAL EXAMINATION: VITAL SIGNS: Blood pressure 120/65, heart rate is in the 90s. NECK: Negative JVD. LUNGS: Without rales. HEART: Reveal S1, S2. EXTREMITIES: Without edema. LABORATORY DATA: Hemoglobin is 7.9, glucose is 252. IMPRESSION: 1. Status post acute pulmonary embolism. 2. Vaginal bleeding. 3. Dilated cardiomyopathy. 4. Diabetes mellitus. 5. Anemia. Given these findings, the patient will likely need repeat blood transfusions. We will need to discuss anticoagulation with SALES PROJECT ADMINISTRATOR as well as with Dr. Nguyen. Florian Nguyễn MD
--- NOTE | 2017-05-02 15:05 | CP.PCM.PN ---
Subjective - Date & Time of Evaluation Date of Evaluation: 05/02/17 Time of Evaluation: 10:45 - Subjective Subjective: Heme/onc note for Dr Roach: Pt seen and examined at bedside. No acute events. Pt denies any sob, or chest pain. C/o LUE swelling. States that she has vaginal bleeding but less than yesterday. Denies any f/c, n/v/d, palpitations, urinary or bm changes. Objective - Vital Signs/Intake and Output Vital Signs (last 24 hours): Temp Pulse Resp BP Pulse Ox 99.6 F 106 H 20 118/73 96 05/02/17 12:00 05/02/17 12:00 05/02/17 12:00 05/02/17 12:00 05/02/17 05:51 Intake and Output: 05/02/17 05/02/17 06:59 18:59 Intake Total 240 Output Total 1000 Balance -760 - Medications Medications: Current Medications Ferrous Sulfate (Feosol) 324 mg PO TID [facility] Last Admin: 05/02/17 13:30 Dose: 324 mg Glimepiride (Amaryl) 4 mg PO DAILY [facility] Last Admin: 05/02/17 09:58 Dose: 4 mg Heparin Sodium/Dextrose (Heparin 25,000 Units/250ml In D5w) 25,000 units in 250 mls @ 14.388 mls/hr IV .[id number] PRN; Protocol; 13 UNITS/KG/HR PRN Reason: ADJUST RATE PER PROTOCOL Last Admin: 05/02/17 10:06 Dose: 13 units/kg/hr, 14.388 mls/hr Insulin Human Regular (Humulin R Med) 0 units SC ACHS [facility] PRN Reason: Protocol Last Admin: 05/02/17 12:31 Dose: 7 units Lisinopril (Zestril) 5 mg PO DAILY [facility] Last Admin: 05/02/17 09:58 Dose: 5 mg Medroxyprogesterone Acetate (Provera) 20 mg PO DAILY [facility] Last Admin: 05/02/17 09:58 Dose: 20 mg Oxycodone/Acetaminophen (Percocet 5/325 Mg Tab) 2 tab PO Q4H PRN PRN Reason: pain Stop: 05/04/17 17:53 Last Admin: 05/02/17 10:52 Dose: 2 tab Warfarin Sodium (Coumadin) 5 mg PO 1800 FIONA PRN Reason: Protocol - Labs Labs: 05/02/17 07:30 05/02/17 07:30 PT 11.9 Seconds (9.9-11.8) H 04/28/17 04:00 INR 1.10 (0.93-1.08) H 04/28/17 04:00 APTT 57.8 Seconds (23.7-30.8) H 05/01/17 07:30 - Constitutional Appears: No Acute Distress - Head Exam Head Exam: ATRAUMATIC, NORMAL INSPECTION, NORMOCEPHALIC - Eye Exam Eye Exam: EOMI, Normal appearance, PERRL Pupil Exam: NORMAL ACCOMODATION, PERRL - ENT Exam ENT Exam: Mucous Membranes Moist, Normal Exam - Neck Exam Neck Exam: Full ROM, Normal Inspection. absent: Lymphadenopathy - Respiratory Exam Respiratory Exam: Clear to Ausculation Bilateral. absent: Rales, Wheezes - Cardiovascular Exam Cardiovascular Exam: RRR, +S1, +S2 - GI/Abdominal Exam GI & Abdominal Exam: Soft. absent: Distended, Tenderness - Extremities Exam Extremities Exam: absent: Calf Tenderness, Pedal Edema - Neurological Exam Neurological Exam: Alert, Awake, Oriented x3 - Psychiatric Exam Psychiatric exam: Normal Affect, Normal Mood - Skin Skin Exam: Dry, Intact, Normal Color, Warm Assessment and Plan - Assessment and Plan (Free Text) Assessment: 57 F presented to the ED with complaint of acute onset shortness of breath found to have massive PE and TPA was administered, currently on heparin drip. Pt is also have some vaginal bleeding; transvaginal US showed endometrial thickening; OBGYN recommended outpatient endometrial biopsy. Pt also developed a L upper extremity swelling - US of upper extremity was negative for DVT and CT of upper ext showed soft tissue swelling. s/p IVC filter placement POD 1. - Hb of 7.9 will consider transfusing 1 unit prbc - Fibrinogen elevated 660 , Fact 8 activity, Lipoprotein A - F/u hypercoagubility work up - RF 12, CHATO negative - Cont Heparin ggt. Coumadin started tonight, d/c heparin drip once INR therapeutic 2-3 - CT chest abd & pelvis shows PE, no evidence of malignancy - F/u GOLF CLUB MANAGER recs - on Progesterone - ID recs -d/julisa abx and observe - Plm recs - V/Q scan in 6 weeks - F/u cardio recs - Daily labs Case and plan was reviewed an discussed in detail with Dr Roach.
[2017-05-03] MEDS: Oxycodone/Acetaminophen 5/325 mg Tab PO PRN ×4 (01:02→22:23)
[2017-05-03] MEDS: Insulin Reg-MEDIUM-Coverage SC SCH ×5 (01:35→22:25)
[2017-05-03] MEDS: Heparin 25,000units in D5W 25,000 UNITS/250 ML BAG IV PRN ×2 (01:56→16:58)
[2017-05-03 06:07] LABS: INR 1.08 (0.93-1.08)
[2017-05-03 07:55] LABS: ADD MANUAL DIFF? NO
[2017-05-03 08:01] LABS: BASO # 0.03 K/mm3 (0.0-2.0); BASO % 0.3 % (0.0-3.0); EOS # 0.4 (0.0-0.7); EOS % 3.9 % (1.5-5.0); GRAN # 7.09 (1.4-6.5); GRAN % 68.1 % (50.0-68.0); HEMATOCRIT 28.5 % (36.0-48.0); LYMPH # 1.9 (1.2-3.4); LYMPH % 17.8 % (22.0-35.0); MEAN CELL VOLUME 88.8 fl (80.0-105.0); MEAN CORPUSCULAR HEMOGLOBIN 30.5 pg (25.0-35.0); MEAN CORPUSCULAR HGB CONC 34.4 g/dl (31.0-37.0); MEAN PLATELET VOLUME 8.9 fl (7.0-11.0); MONO % 9.9 % (1.0-6.0); PLATELET COUNT 278 10^3/uL (120.0-450.0); RED CELL DISTRIBUTION WIDTH 14.1 % (11.5-14.5); WHITE BLOOD COUNT 10.4 10^3/ul (4.5-11.0)
[2017-05-03 08:14] LABS: ALB/GLOB RATIO 0.9 (1.1-1.8); ALKALINE PHOSPHATASE 72 U/L (38-133); ALT/SGPT 33 U/L (7-56); AST/SGOT 24 U/L (15-39); BILIRUBIN,TOTAL 0.9 mg/dL (0.2-1.3); BLOOD UREA NITROGEN 16 mg/dL (7-21); CALCIUM 8.2 mg/dL (8.4-10.5); CARBON DIOXIDE 26 mmol/L (21-33); CHLORIDE 96 mmol/L (95-110); GFR AFRICAN-AMERICAN > 60; GLUCOSE,RANDOM 288 mg/dL (70-110); POTASSIUM 4.3 mmol/L (3.6-5.0); SODIUM 130 mmol/L (132-148); TOTAL PROTEIN 6.3 g/dL (5.8-8.3)
--- NOTE | 2017-05-03 08:38 | PN ---
SUBJECTIVE: The patient was seen and examined at bedside on the telemetry hinkle. No acute events overnight. She remains afebrile and hemodynamically stable. She is status post transfusion of an additional 2 units of PRBCs, which she tolerated well. This morning, she is sitting up comfortably in her chair and feels markedly improved over the course of the last 2 to 3 days. She also reports continued improvement in her vaginal bleeding with just some minor bleeding at this point and no passage of clots. OBJECTIVE: VITAL SIGNS: Temperature 98.9, pulse 95, blood pressure 113/63, respiratory rate 18, oxygen saturation 94% on 2 liters nasal cannula. GENERAL: No apparent distress. HEENT: PERRL. EOMI. No scleral icterus. Mild conjunctival pallor is noted. NECK: No JVD. LUNGS: Clear to auscultation. CARDIOVASCULAR: Regular rate and rhythm. Normal S1 and S2. Grade 2/6 systolic ejection murmur to right upper sternal border. ABDOMEN: Obese. Normoactive bowel sounds. Soft, nontender, nondistended. EXTREMITIES: Left upper extremity with significant ecchymosis. Lower extremities without edema. NEUROLOGIC: Awake, alert and oriented x3. No focal motor deficits. LABORATORY DATA: Morning labs are pending. ASSESSMENT: The patient is a 57-year-old woman with hypertension, type 2 diabetes mellitus, and morbid obesity who was initially admitted to the ICU status post provoked bilateral pulmonary emboli, status post TPA and with diabetic ketoacidosis, who is now status post transfer out of the ICU and maintained on the telemetry hinkle for continued management of bilateral pulmonary emboli and ongoing vaginal bleed, which is improving. PLAN: 1. Bilateral pulmonary emboli, provoked. Input from Dr. Pineda noted and greatly appreciated. The patient is status post IVC filter placement in the event that we need to terminate anticoagulation secondary to her vaginal bleed; however, this appears to be improving. Continue with heparin drip while bridging to Coumadin. The patient remains on Coumadin 5 mg p.o. daily with the goal INR of 2 to 3. We can discontinue heparin when the patient has a therapeutic INR for 2 consecutive days. 2. Vaginal bleed, input from Dr. Alonso of DRYING CAN WORKER noted. The patient remains on Provera 20 mg p.o. daily. Continue to monitor CBC daily and transfuse to goal hemoglobin greater than 8. 3. Symptomatic anemia secondary to vaginal bleed. Continue with care as per # 2. Continue with Feosol 325 mg p.o. t.i.d. 4. Dilated cardiomyopathy. Input from Dr. Nguyễn noted and appreciated. The patient remains hemodynamically stable and chest pain free. 5. SIRS syndrome, no evidence of sepsis. Input from Dr. Ross of infectious disease noted and the patient remains off antimicrobials. She remains afebrile and was negative cultures. 6. Left upper extremity ecchymosis. Continue with compressions and Percocet 5/ 325 mg 2 tabs p.o. q. 4 hours p.r.n. pain. We will start the patient on Colace 100 mg p.o. b.i.d. as bowel regimen. 7. Hypertension. Blood pressure controlled. Continue with lisinopril 5 mg p.o. daily. 8. Type 2 diabetes mellitus. Fingersticks remained elevated in the 200 to 300 range. We will increase glimepiride to 4 mg p.o. b.i.d. Continue with medium dose insulin sliding scale and monitoring fingersticks q. a.c. and at bedtime. 9. Prophylaxis. GI prophylaxis is not indicated. This patient is eating. The patient remains on heparin for her acute PE. CODE STATUS: Full code. Jorge Nguyen MD ISMAEL
--- NOTE | 2017-05-03 10:11 | PN ---
DATE: 05/03/2017 CARDIOLOGY FOLLOWUP NOTE SUBJECTIVE: The patient is without shortness of breath and without chest pain. PHYSICAL EXAMINATION VITAL SIGNS: Blood pressure is 105/67 and heart rate is in the 90s. NECK: Negative JVD. LUNGS: Without rales. HEART: Reveals S1 and S2. EXTREMITIES: Without edema. LABORATORY DATA: The hemoglobin is 9.8, post transfusion. The glucose is 288. IMPRESSION 1. Status post pulmonary embolism. 2. Vaginal bleeding. 3. Dilated cardiomyopathy. 4. Diabetes mellitus. PLAN: Given these findings, the patient has been started on warfarin. Apparently they are no more plans according to SADDLE STITCHING MACHINE OPERATOR for intervention. We will need to watch her hemoglobin carefully. Florian Nguyễn MD
--- NOTE | 2017-05-03 11:45 | CP.PCM.PN ---
Subjective - Date & Time of Evaluation Date of Evaluation: 05/03/17 Time of Evaluation: 07:15 - Subjective Subjective: Heme/onc note for Dr Roach: Pt seen and examined at bedside. No acute events. Denies sob, or chest pain. Still complains of LUE swelling. States that she has vaginal bleeding has decreased. Denies any f/c, n/v/d, palpitations, urinary or bm changes. Objective - Vital Signs/Intake and Output Vital Signs (last 24 hours): Temp Pulse Resp BP Pulse Ox 98.6 F 101 H 20 115/66 100 05/03/17 06:00 05/03/17 10:20 05/03/17 06:00 05/03/17 10:20 05/03/17 06:00 Intake and Output: 05/03/17 05/03/17 06:59 18:59 Intake Total 961 347 Output Total 100 Balance 961 247 - Medications Medications: Current Medications Docusate Sodium (Colace) 100 mg PO BID [facility] Last Admin: 05/03/17 10:22 Dose: 100 mg Ferrous Sulfate (Feosol) 324 mg PO TID [facility] Last Admin: 05/03/17 10:23 Dose: 324 mg Glimepiride (Amaryl) 4 mg PO BID [facility] Last Admin: 05/03/17 10:23 Dose: 4 mg Heparin Sodium/Dextrose (Heparin 25,000 Units/250ml In D5w) 25,000 units in 250 mls @ 14.388 mls/hr IV .[id number] PRN; Protocol; 13 UNITS/KG/HR PRN Reason: ADJUST RATE PER PROTOCOL Last Admin: 05/03/17 01:56 Dose: 14.72 units/kg/hr, 16.292 mls/hr Insulin Human Regular (Humulin R Med) 0 units SC ACHS [facility] PRN Reason: Protocol Last Admin: 05/03/17 08:22 Dose: 7 units Lisinopril (Zestril) 5 mg PO DAILY [facility] Last Admin: 05/03/17 10:20 Dose: 5 mg Medroxyprogesterone Acetate (Provera) 20 mg PO DAILY [facility] Last Admin: 05/03/17 10:23 Dose: 20 mg Oxycodone/Acetaminophen (Percocet 5/325 Mg Tab) 2 tab PO Q4H PRN PRN Reason: pain Stop: 05/04/17 17:53 Last Admin: 05/03/17 10:30 Dose: 2 tab Warfarin Sodium (Coumadin) 7.5 mg PO 1800 FIONA PRN Reason: Protocol - Labs Labs: 05/03/17 07:54 05/03/17 07:54 PT 11.7 Seconds (9.9-11.8) 05/03/17 05:30 INR 1.08 (0.93-1.08) 05/03/17 05:30 APTT 52.0 Seconds (23.7-30.8) H 05/03/17 05:30 - Constitutional Appears: No Acute Distress - Head Exam Head Exam: ATRAUMATIC, NORMAL INSPECTION, NORMOCEPHALIC - Eye Exam Eye Exam: EOMI, Normal appearance, PERRL Pupil Exam: NORMAL ACCOMODATION, PERRL - ENT Exam ENT Exam: Mucous Membranes Moist, Normal Exam - Neck Exam Neck Exam: Full ROM, Normal Inspection. absent: Lymphadenopathy - Respiratory Exam Respiratory Exam: Clear to Ausculation Bilateral. absent: Rales, Wheezes - Cardiovascular Exam Cardiovascular Exam: RRR, +S1, +S2 - GI/Abdominal Exam GI & Abdominal Exam: Soft. absent: Distended, Tenderness - Extremities Exam Extremities Exam: absent: Calf Tenderness, Pedal Edema Additional comments: LUE swelling and areas of eccymosis - Neurological Exam Neurological Exam: Alert, Awake, CN II-XII Intact, Oriented x3 - Psychiatric Exam Psychiatric exam: Normal Affect, Normal Mood - Skin Skin Exam: Dry, Intact, Normal Color, Warm Assessment and Plan - Assessment and Plan (Free Text) Assessment: 57 F presented to the ED with complaint of acute onset shortness of breath found to have massive PE and TPA was administered, currently on heparin drip. Pt is also have some vaginal bleeding; transvaginal US showed endometrial thickening; OBGYN recommended outpatient endometrial biopsy. Pt also developed a L upper extremity swelling - US of upper extremity was negative for DVT and CT of upper ext showed soft tissue swelling. s/p IVC filter placement POD 2. - ordered screening Mammo and Breast US to r/o any underlying malignancy, family hx with mother of breast ca at 62yo - Increased Coumadin to 7.5mg - Hb of 9.8 today s/p 2 units prbc yesterday - Fibrinogen elevated 660 , Fact 8 activity, Lipoprotein A - Hexagonal phase confirm positive, Lupus anticoag indeterminate - will f/u with path/lab regarding clinical significance - F/u hypercoagubility work up - RF 12, CHATO negative - Cont Heparin ggt. Coumadin started tonight, d/c heparin drip once INR therapeutic 2-3 - CT chest abd & pelvis shows PE, no evidence of malignancy - F/u SURGICAL TRAINING SPECIALIST recs - on Progesterone - F/u Ca125 and HE4 - ID recs -d/julisa abx and observe - Plm recs - V/Q scan in 6 weeks - F/u cardio recs - Daily labs Case and plan was reviewed an discussed in detail with Dr Roach.
--- NOTE | 2017-05-03 12:57 | PN ---
DATE: 05/03/2017 PULMONARY PROGRESS NOTE SUBJECTIVE: Although, the patient feels markedly better, she still has significant amount of vaginal bleeding. I do not believe she has been reevaluated by ROTARY FURNACE TENDER, this is not acceptable. Although, the patient was kept on heparin yesterday in the face of starting Coumadin, I am concerned about this right now because the Coumadin cannot be reversed as easily as the heparin. This is essential that she gets anticoagulation, although she does have an IVC filter in place. It is important due to that fact that the size of this pulmonary embolism is extensive. PHYSICAL EXAMINATION: GENERAL: She is better feeling well, but complaining vaginal bleeding, not during the day, but in the morning the pads are completely saturated. VITAL SIGNS: Stable. Blood pressure of 120/70, heart rate of 80, respiratory rate of 16 to 18, and O2 saturation of 98%. HEENT: Normocephalic and atraumatic. NECK: Supple. No JVD. HEART: Regular rhythm. S1 and S2, without murmur. LUNGS: Essentially clear to percussion and auscultation. ABDOMEN: Soft. EXTREMITIES: No clubbing, cyanosis or edema. No Homans' sign. LABORATORY DATA: No new laboratory studies are available at this time. DIAGNOSES/IMPRESSION: 1. Large pulmonary emboli. 2. Persistent vaginal bleeding. 3. Cardiomyopathy. 4. Left upper extremity cellulitis and/or thrombophlebitis. Although the patient was started on low dose Coumadin yesterday, she continued on heparin therapy until she becomes adequately anticoagulated. PLAN: We remained in a precarious position with continued vaginal bleeding. This needs further ROTARY FURNACE TENDER evaluation. We strongly suggest that they be called back to see this patient, as we do not have an answer what to do with the anticoagulation going forward. I have placed several course, there is no response. The nurses have been ask to get the ROTARY FURNACE TENDER doctors back to see this patient is essential. This does not just regarding minor vaginal bleeding, but pertains to the patient's pulmonary emboli (extensive) and need for prolonged anticoagulation. We will discuss with you and decide on the need for further intervention in the immediate future. Tirso Pineda MD
--- NOTE | 2017-05-03 15:27 | CP.PCM.PN ---
Subjective - Date & Time of Evaluation Date of Evaluation: 05/03/17 Time of Evaluation: 09:35 - Subjective Subjective: Still with left arm swelling and pain but a little less, no fevers overnight, less vaginal bleeding. Objective - Vital Signs/Intake and Output Vital Signs (last 24 hours): Temp Pulse Resp BP Pulse Ox 98.9 F 95 H 18 113/63 100 05/03/17 05:20 05/03/17 05:20 05/03/17 05:20 05/03/17 05:20 05/03/17 00:01 Intake and Output: 05/02/17 05/03/17 18:59 06:59 Intake Total 104 801 Balance 104 801 - Medications Medications: Current Medications Ferrous Sulfate (Feosol) 324 mg PO TID [facility] Last Admin: 05/02/17 17:26 Dose: 324 mg Glimepiride (Amaryl) 4 mg PO DAILY [facility] Last Admin: 05/02/17 09:58 Dose: 4 mg Heparin Sodium/Dextrose (Heparin 25,000 Units/250ml In D5w) 25,000 units in 250 mls @ 14.388 mls/hr IV .[id number] PRN; Protocol; 13 UNITS/KG/HR PRN Reason: ADJUST RATE PER PROTOCOL Last Admin: 05/03/17 01:56 Dose: 14.72 units/kg/hr, 16.292 mls/hr Insulin Human Regular (Humulin R Med) 0 units SC ACHS [facility] PRN Reason: Protocol Last Admin: 05/03/17 01:35 Dose: Not Given Lisinopril (Zestril) 5 mg PO DAILY [facility] Last Admin: 05/02/17 09:58 Dose: 5 mg Medroxyprogesterone Acetate (Provera) 20 mg PO DAILY [facility] Oxycodone/Acetaminophen (Percocet 5/325 Mg Tab) 2 tab PO Q4H PRN PRN Reason: pain Stop: 05/04/17 17:53 Last Admin: 05/03/17 01:02 Dose: 2 tab Warfarin Sodium (Coumadin) 5 mg PO 1800 [facility] PRN Reason: Protocol Last Admin: 05/02/17 17:50 Dose: 5 mg - Labs Labs: 05/02/17 07:30 05/02/17 07:30 PT 11.7 Seconds (9.9-11.8) 05/03/17 05:30 INR 1.08 (0.93-1.08) 05/03/17 05:30 APTT 52.0 Seconds (23.7-30.8) H 05/03/17 05:30 - Constitutional Appears: Non-toxic, No Acute Distress - Head Exam Head Exam: NORMAL INSPECTION - ENT Exam ENT Exam: Mucous Membranes Moist - Neck Exam Neck Exam: absent: Lymphadenopathy, Meningismus - Respiratory Exam Respiratory Exam: Decreased Breath Sounds - Cardiovascular Exam Cardiovascular Exam: +S1, +S2 - GI/Abdominal Exam GI & Abdominal Exam: Soft. absent: Tenderness - Extremities Exam Additional comments: left upper extremity with swelling and ecchymoses noted Assessment and Plan - Assessment and Plan (Free Text) Plan: Assessment Systemic Inflammatory response syndrome, consider reactive in relation to probable hematoma on the left arm, so far no source of sepsis identified acute pulmonary embolism, on anticoagulation vaginal bleeding, etiology to be determined HTN DM morbid obesity with BMI 44 Plan currently does not have signs of pneumonia; blood and urine cx are negative - continue to monitor off antibiotics since she is at risk for infection reviewed CT scan of the left arm which does not show fluid collection will continue to monitor clinically and trend WBC count
[2017-05-04 04:55] LABS: ADD MANUAL DIFF? NO
[2017-05-04 05:22] LABS: INR 1.21 (0.93-1.08); PARTIAL THROMBOPLASTIN TIME 47.4 Seconds (23.7-30.8)
[2017-05-04 05:24] LABS: BASO # 0.03 K/mm3 (0.0-2.0); BASO % 0.3 % (0.0-3.0); EOS # 0.5 (0.0-0.7); EOS % 4.8 % (1.5-5.0); GRAN # 5.89 (1.4-6.5); GRAN % 59.1 % (50.0-68.0); HEMATOCRIT 28.5 % (36.0-48.0); LYMPH # 2.4 (1.2-3.4); LYMPH % 24.2 % (22.0-35.0); MEAN CELL VOLUME 89.3 fl (80.0-105.0); MEAN CORPUSCULAR HEMOGLOBIN 29.8 pg (25.0-35.0); MEAN CORPUSCULAR HGB CONC 33.3 g/dl (31.0-37.0); MEAN PLATELET VOLUME 9.1 fl (7.0-11.0); MONO # 1.2 (0.1-0.6); MONO % 11.6 % (1.0-6.0); PLATELET COUNT 305 10^3/uL (120.0-450.0); RED CELL DISTRIBUTION WIDTH 14.5 % (11.5-14.5)
[2017-05-04 06:25] LABS: ALB/GLOB RATIO 0.9 (1.1-1.8); ALKALINE PHOSPHATASE 71 U/L (38-133); ALT/SGPT 37 U/L (7-56); AST/SGOT 33 U/L (15-39); BILIRUBIN,TOTAL 0.7 mg/dL (0.2-1.3); BLOOD UREA NITROGEN 15 mg/dL (7-21); CALCIUM 8.4 mg/dL (8.4-10.5); CARBON DIOXIDE 27 mmol/L (21-33); CHLORIDE 97 mmol/L (95-110); GFR AFRICAN-AMERICAN > 60; GLUCOSE,RANDOM 280 mg/dL (70-110); POTASSIUM 4.1 mmol/L (3.6-5.0); SODIUM 132 mmol/L (132-148); TOTAL PROTEIN 6.3 g/dL (5.8-8.3)
[2017-05-04] MEDS: Oxycodone/Acetaminophen 5/325 mg Tab PO PRN ×3 (10:08→22:37)
[2017-05-04] MEDS: Insulin Reg-MEDIUM-Coverage SC SCH ×4 (10:14→22:32)
[2017-05-04] MEDS: Heparin 25,000units in D5W 25,000 UNITS/250 ML BAG IV PRN (10:16)
--- NOTE | 2017-05-04 12:51 | MAM ---
PROCEDURE: MAMMO DIAGNOSTIC BILAT INC CAD HISTORY: Malignancy suspected common no known primary. TECHNIQUE: Craniocaudal, MLO views. CAD technology employed. COMPARISON: No prior studies. FINDINGS: MAMMOGRAM: Right breast: No significant abnormalities. No suspicious calcifications, masses or areas of parenchymal distortion. Negative examination for skin thickening, nipple retraction or other pathologic process. Left breast: No significant abnormalities. No suspicious calcifications, masses or areas of parenchymal distortion. Negative examination for skin thickening, nipple retraction or other pathologic process. IMPRESSION: BIRADS 2 Benign findings. Recommendation: Continue annual screening mammography, as per ACR guidelines. The [facility] has passed a law, effective January 15, 2014. Please be advised that we are required by this law to put this notification in all mammography result reports. This [place] Breast Density Law requires all patients and healthcare providers, regardless of breast density, to receive the information typed below: Your mammogram may show dense breast tissue as determined by the Breast Imaging Reporting and Data System established by the [employer]. Dense breast tissue is very common and is not abnormal. However, in some cases, dense breast tissue can make it harder to find cancer on a mammogram and may also be associated with a risk factor for breast cancer. Discuss this and other risks for breast cancer that pertain to your personal medical history. A report of your results was sent to your health care provider. You may also find more information about breast density at the website of the [employer], www.acr.org.
--- NOTE | 2017-05-04 13:27 | US ---
HISTORY: TECHNIQUE: Sonographic evaluation of both breast was performed. FINDINGS: RIGHT BREAST: No solid or cystic masses identified. No axillary lymphadenopathy identified. LEFT BREAST: No solid or cystic masses identified. No axillary lymphadenopathy identified. IMPRESSION: No sonographic evidence of malignancy. BIRADS: BIRADS 1 (negative) Recommendation: Continue annual screening mammography, as per ACR guidelines
--- NOTE | 2017-05-04 15:05 | PN ---
DATE: SUBJECTIVE: The patient is sitting up in her chair, room 268, bed 2. There have been no acute events overnight and she says that the vaginal bleeding has dramatically diminished. The left arm was also improving. PHYSICAL EXAMINATION: VITAL SIGNS: Temperature 98.6, pulse rate 70, blood pressure 101/55, respiratory rate of 20 with an O2 saturation of 97% on room air. HEENT: Unremarkable. NECK: Supple with a full range of motion. No bruits are present. LUNGS: Clear to auscultation and percussion bilaterally. HEART: Regular rate and rhythm. No murmurs, rubs, or gallops. ABDOMEN: Soft. There is no organomegaly. It is nontender. Bowel sounds are normoactive. EXTREMITIES: Trace edema. No deformities. NEUROLOGIC: The patient is intact. LABORATORY DATA: Hemoglobin and hematocrit are 9.5 and 28.5. Chemistry is normal with the exception of a glucose of 279. We will continue to monitor her hemoglobin and hematocrit. Transfuse as needed. CURRENT PROBLEM LIST: 1. Pulmonary embolism. 2. Shortness of breath. 3. Congestive heart failure. Obi Nguyen MD
--- NOTE | 2017-05-04 15:49 | CP.PCM.PN ---
<Leon Francisco - Last Filed: 05/04/17 15:59> Subjective - Date & Time of Evaluation Date of Evaluation: 05/04/17 Time of Evaluation: 07:10 - Subjective Subjective: Heme/onc note for Dr Roach: Pt seen and examined at bedside. No acute events. No sob or chest pain. c/o LUE swelling. Decreased vaginal bleeding. Denies any f/c, n/v/d, palpitations, urinary or bm changes. Objective - Vital Signs/Intake and Output Vital Signs (last 24 hours): Temp Pulse Resp BP Pulse Ox 98.6 F 97 H 20 124/73 97 05/04/17 06:00 05/04/17 10:12 05/04/17 06:00 05/04/17 10:12 05/04/17 06:00 Intake and Output: 05/04/17 05/04/17 06:59 18:59 Intake Total 566 44 Balance 566 44 - Medications Medications: Current Medications Docusate Sodium (Colace) 100 mg PO BID [facility] Last Admin: 05/04/17 10:21 Dose: 100 mg Ferrous Sulfate (Feosol) 324 mg PO TID [facility] Last Admin: 05/04/17 13:48 Dose: 324 mg Glimepiride (Amaryl) 4 mg PO BID [facility] Last Admin: 05/04/17 10:09 Dose: 4 mg Heparin Sodium/Dextrose (Heparin 25,000 Units/250ml In D5w) 25,000 units in 250 mls @ 14.388 mls/hr IV .[id number] PRN; Protocol; 13 UNITS/KG/HR PRN Reason: ADJUST RATE PER PROTOCOL Last Admin: 05/04/17 10:16 Dose: 16.72 units/kg/hr, 18.505 mls/hr Insulin Human Regular (Humulin R Med) 0 units SC ACHS [facility] PRN Reason: Protocol Last Admin: 05/04/17 11:48 Dose: 7 units Lisinopril (Zestril) 5 mg PO DAILY [facility] Last Admin: 05/04/17 10:12 Dose: 5 mg Medroxyprogesterone Acetate (Provera) 20 mg PO DAILY [facility] Last Admin: 05/04/17 10:08 Dose: 20 mg Oxycodone/Acetaminophen (Percocet 5/325 Mg Tab) 2 tab PO Q4H PRN PRN Reason: pain Stop: 05/04/17 17:53 Last Admin: 05/04/17 10:08 Dose: 2 tab Warfarin Sodium (Coumadin) 7.5 mg PO 1800 [facility] PRN Reason: Protocol Last Admin: 05/03/17 17:20 Dose: 7.5 mg - Labs Labs: 05/04/17 04:30 05/04/17 04:30 PT 13.1 Seconds (9.9-11.8) H 05/04/17 04:30 INR 1.21 (0.93-1.08) H 05/04/17 04:30 APTT 80.8 Seconds (23.7-30.8) H* 05/04/17 14:02 - Constitutional Appears: No Acute Distress - Head Exam Head Exam: ATRAUMATIC, NORMAL INSPECTION, NORMOCEPHALIC - Eye Exam Eye Exam: EOMI, Normal appearance, PERRL - ENT Exam ENT Exam: Mucous Membranes Moist - Neck Exam Neck Exam: absent: Tenderness - Respiratory Exam Respiratory Exam: Clear to Ausculation Bilateral. absent: Rales, Wheezes - Cardiovascular Exam Cardiovascular Exam: REGULAR RHYTHM, RRR, +S1, +S2 - GI/Abdominal Exam GI & Abdominal Exam: Soft, Normal Bowel Sounds. absent: Tenderness - Extremities Exam Extremities Exam: absent: Calf Tenderness, Pedal Edema Additional comments: LUE edema - Neurological Exam Neurological Exam: Alert, Awake, CN II-XII Intact, Normal Gait, Oriented x3 - Psychiatric Exam Psychiatric exam: Normal Affect, Normal Mood - Skin Skin Exam: Dry, Intact, Normal Color, Warm Assessment and Plan - Assessment and Plan (Free Text) Assessment: 57 F presented to the ED with complaint of acute onset shortness of breath found to have massive PE and TPA was administered, currently on heparin drip. Pt is also have some vaginal bleeding; transvaginal US showed endometrial thickening; OBGYN recommended outpatient endometrial biopsy. Pt also developed a L upper extremity swelling - US of upper extremity was negative for DVT and CT of upper ext showed soft tissue swelling. s/p IVC filter placement POD 3. To follow up with OBGYN for endometrial bx and hysteroscopy (elevated CA-125) as an outpatient once more stable. - Coumadin to 7.5mg todays INR 1.21 - Cont Heparin ggt, d/c heparin drip once INR therapeutic 2-3 - Pain control - OT ordered for L upper ext edema - diagnostic Mammo BIRADS 2 benign finding cont annual screening mammo - Breast US - BIRADS 1 negative cont annual screening - F/u Ca125 elevated 182 - should be f/u as an outpatient for hysteroscopy and bx - f/u HE4 - Hb of 9.5 today - Fibrinogen elevated 660 , Fact 8 activity, Lipoprotein A - Hexagonal phase confirm positive, Lupus anticoag indeterminate - will f/u with path/lab regarding clinical significance - F/u hypercoagubility work up - RF 12, CHATO negative - CT chest abd & pelvis shows PE, no evidence of malignancy - F/u VOICE COACH recs - on Progesterone - ID recs -d/julisa abx and observe - Plm recs - V/Q scan in 6 weeks - F/u cardio recs - Daily labs Case and plan was reviewed an discussed in detail with Dr Roach. <Theresa Roach P - Last Filed: 05/12/17 18:47> Objective - Vital Signs/Intake and Output Vital Signs (last 24 hours): Temp Pulse Resp BP Pulse Ox 98.1 F 86 20 118/69 99 05/10/17 08:53 05/10/17 09:27 05/10/17 08:53 05/10/17 09:27 05/10/17 08:53 - Labs Labs: 05/10/17 06:30 05/10/17 06:30 PT 26.2 Seconds (9.9-11.8) H 05/10/17 06:30 INR 2.43 (0.93-1.08) H 05/10/17 06:30 APTT 75.8 Seconds (23.7-30.8) H* 05/05/17 10:27 Attending/Attestation - Attestation I have personally seen and examined this patient.: Yes I have fully participated in the care of the patient.: Yes I have reviewed all pertinent clinical information, including history, physical exam and plan: Yes
--- NOTE | 2017-05-04 16:17 | NM ---
COMPARISON: CT PE study 04/23/2017 TECHNIQUE: 34.0 mCi technetium 99-m DTPA aerosol. 3.0 mCI technetium 99-m MAA administered intravenously. FINDINGS: VENTILATION COMPONENT: Normal. PERFUSION COMPONENT: There is a perfusion defect in the left lower lobe seen best on the oblique view the does not match with a ventilation defect. This is suspicious for pulmonary embolus. The patient had a previous CT PE study which showed extensive bilateral emboli especially on the left side. This probably represents a residual PE IMPRESSION: Highprobability ventilation perfusion scan for pulmonary embolism. Extensive emboli were demonstrated on previous CT
--- NOTE | 2017-05-04 17:14 | PN ---
PULMONARY PROGRESS NOTE DATE: 05/04/2017 SUBJECTIVE: I have had a long-term talk with the patient and she still feels rather ill. She states that no INFORMATICIST is yet to not yet come back to see her regarding the continued bleeding. She notes that pads still contained large amounts of blood. She has already received 2 units of blood and she is being considered for more blood according to the hematology fellow working with Dr. Roach. Please note also that the patient has tremendous pain in her left extremity. She was evaluated originally by Dr. Zhang. She still requires further intervention as she has terrible pain. She is unable to move her hand. Her fingers are swollen and no additional improvement is noted whatsoever. Tare Weigher stated to her that she could consider being discharged in 24 hours, but still there was no etiology or help with regards to her left upper extremity or her vaginal bleeding. Her shortness of breath is considerably better. She states that she has no respiratory distress at this point. She is being weaned off heparin and Coumadin is being started. She is anxious to know whether or not there is resolution of the previously seen clots. I would not want to repeat a helical CT because of dye, but we will order a ventilation perfusion scan, which should show some improvement by this time if it does not negate the necessity for repeating a follow up VQ down the line. It is very important to make sure that the clots are not propagating because of the large size and extensivity of these clots. The IVC filter remains in place, but due to no etiology, it is not simpson to just stop anticoagulation. The hypercoagulable state parameters that I have ordered are still not available. The staff training and development manager is not evaluating these problems and this is all required before the patient can be considered stable and ready for discharge. PHYSICAL EXAMINATION: GENERAL: She is resting comfortably, in no acute distress. VITAL SIGNS: Stable. Blood pressure 120/70, heart rate 68, respiratory rate 16, O2 sat 98%. HEENT: Normocephalic and atraumatic. NECK: Supple. No JVD. No lymphadenopathy. HEART: Regular rhythm. S1 and S2 without murmur, gallop or rub. LUNGS: Essentially clear to percussion and auscultation. ABDOMEN: Soft. Bowel sounds normoactive without mass, guarding, rebound or organomegaly. EXTREMITIES: Reveal no clubbing, cyanosis or edema. There is no Homans' sign. Lymphadenopathy is not present. I cannot fully evaluate the left upper extremity, however, due to the patient with pain. DIAGNOSTIC IMPRESSION: 1. Still consist of extensive bilateral pulmonary emboli. 2. Persistent vaginal bleeding. 3. Persistent pain in the left upper extremities with edema of the hands and inability to care for these problems. 4. Cardiomyopathy. 5. Anxiety. PLAN: I will speak to Dr. Nguyen once again regarding the consultants coming back to see this patient. I have put in a second request for RESIDENTIAL DRIVER and I have also called the office for another opinion. Additionally, the patient needs further follow up regarding the arm, the vaginal bleeding and the potential hypercoagulable state. These specialists need to return to see the patient and make any further recommendations that may be necessary. We will follow closely with you. Unfortunately, I am leaving for vacation. I will turn over this case to my associates, who will see the patient for the interim and I would be happy to follow her again once I return. This will be done carefully. so that all are aware of the clinical situation. Tirso Pineda MD
--- NOTE | 2017-05-04 17:35 | PN ---
DATE: 05/04/2017 SUBJECTIVE: The patient is comfortable in a chair. PHYSICAL EXAMINATION: VITAL SIGNS: Blood pressure is 101/55, heart rate is in the 70s. NECK: Negative JVD. LUNGS: Without rales. HEART: With S1, S2. Extremities: With 1+ edema. LABORATORY DATA: The hemoglobin is 9.5, glucose is 280. IMPRESSION: 1. Status post acute pulmonary embolism. 2. Vaginal bleeding, which continues on IV anticoagulation as well as p.o. warfarin. 3. Anemia. 4. Diabetes mellitus. 5. Dilated cardiomyopathy. Given these findings, the patient has been anticoagulated. We will need to have CUSTOMER SERVICE CONSULTANT continue to follow. May need CUSTOMER SERVICE CONSULTANT intervention to look at the etiology of her vaginal bleeding. Florian Nguyễn MD
--- NOTE | 2017-05-04 18:54 | CP.PCM.PN ---
Subjective - Date & Time of Evaluation Date of Evaluation: 05/04/17 Time of Evaluation: 09:50 - Subjective Subjective: Still complaining of left arm pain but a little better, no fevers. Objective - Vital Signs/Intake and Output Vital Signs (last 24 hours): Temp Pulse Resp BP Pulse Ox 98.3 F 96 H 20 123/64 94 L 05/04/17 00:01 05/04/17 02:00 05/04/17 00:01 05/04/17 00:01 05/04/17 00:01 Intake and Output: 05/03/17 05/04/17 18:59 06:59 Intake Total 597 566 Output Total 100 Balance 497 566 - Medications Medications: Current Medications Docusate Sodium (Colace) 100 mg PO BID [facility] Last Admin: 05/03/17 17:20 Dose: 100 mg Ferrous Sulfate (Feosol) 324 mg PO TID [facility] Last Admin: 05/03/17 17:20 Dose: 324 mg Glimepiride (Amaryl) 4 mg PO BID [facility] Last Admin: 05/03/17 17:20 Dose: 4 mg Heparin Sodium/Dextrose (Heparin 25,000 Units/250ml In D5w) 25,000 units in 250 mls @ 14.388 mls/hr IV .[id number] PRN; Protocol; 13 UNITS/KG/HR PRN Reason: ADJUST RATE PER PROTOCOL Last Titration: 05/04/17 06:15 Dose: 16.72 units/kg/hr, 18.505 mls/hr Insulin Human Regular (Humulin R Med) 0 units SC ACHS [facility] PRN Reason: Protocol Last Admin: 05/03/17 22:25 Dose: 2 units Lisinopril (Zestril) 5 mg PO DAILY [facility] Last Admin: 05/03/17 10:20 Dose: 5 mg Medroxyprogesterone Acetate (Provera) 20 mg PO DAILY [facility] Last Admin: 05/03/17 10:23 Dose: 20 mg Oxycodone/Acetaminophen (Percocet 5/325 Mg Tab) 2 tab PO Q4H PRN PRN Reason: pain Stop: 05/04/17 17:53 Last Admin: 05/03/17 22:23 Dose: 2 tab Warfarin Sodium (Coumadin) 7.5 mg PO 1800 [facility] PRN Reason: Protocol Last Admin: 05/03/17 17:20 Dose: 7.5 mg - Labs Labs: 05/04/17 04:30 05/03/17 07:54 PT 13.1 Seconds (9.9-11.8) H 05/04/17 04:30 INR 1.21 (0.93-1.08) H 05/04/17 04:30 APTT 47.4 Seconds (23.7-30.8) H 05/04/17 04:30 - Constitutional Appears: Non-toxic, No Acute Distress - Head Exam Head Exam: NORMAL INSPECTION - ENT Exam ENT Exam: Mucous Membranes Moist - Neck Exam Neck Exam: absent: Lymphadenopathy, Meningismus - Respiratory Exam Respiratory Exam: Decreased Breath Sounds - Cardiovascular Exam Cardiovascular Exam: +S1, +S2 - GI/Abdominal Exam GI & Abdominal Exam: Soft. absent: Tenderness Assessment and Plan - Assessment and Plan (Free Text) Plan: Assessment Systemic Inflammatory response syndrome, consider reactive in relation to probable hematoma on the left arm; no source of sepsis identified acute pulmonary embolism, on anticoagulation vaginal bleeding, etiology to be determined HTN DM morbid obesity with BMI 44 Plan currently does not have signs of pneumonia; blood and urine cx are negative - continue to monitor off antibiotics since she is at risk for infection reviewed CT scan of the left arm which does not show fluid collection
[2017-05-04 22:07] LABS: JAK2 V617F NOT DETECTED
[2017-05-04 22:54] LABS: COAG FACTOR VIII ACTIVITY 246 % (50-180)
[2017-05-05] MEDS: Heparin 25,000units in D5W 25,000 UNITS/250 ML BAG IV PRN (01:11)
[2017-05-05 03:34] LABS: ALB/GLOB RATIO 0.9 (1.1-1.8); ALKALINE PHOSPHATASE 74 U/L (38-133); ALT/SGPT 35 U/L (7-56); AST/SGOT 36 U/L (15-39); BILIRUBIN,TOTAL 0.6 mg/dL (0.2-1.3); BLOOD UREA NITROGEN 16 mg/dL (7-21); CALCIUM 8.6 mg/dL (8.4-10.5); CARBON DIOXIDE 28 mmol/L (21-33); CHLORIDE 98 mmol/L (98-107); GFR AFRICAN-AMERICAN > 60; GLUCOSE,RANDOM 292 mg/dL (70-110); POTASSIUM 4.4 mmol/L (3.6-5.0); SODIUM 133 mmol/L (132-148); TOTAL PROTEIN 6.5 g/dL (5.8-8.3)
[2017-05-05 03:52] LABS: BASO # 0.02 K/mm3 (0.0-2.0); BASO % 0.2 % (0.0-3.0); EOS # 0.4 (0.0-0.7); EOS % 4.5 % (1.5-5.0); GRAN # 5.7 (1.4-6.5); HEMATOCRIT 28.2 % (36.0-48.0); LYMPH # 2.6 (1.2-3.4); LYMPH % 26.5 % (22.0-35.0); MEAN CELL VOLUME 89.8 fl (80.0-105.0); MEAN CORPUSCULAR HEMOGLOBIN 29.6 pg (25.0-35.0); MONO % 9.8 % (1.0-6.0); RED CELL DISTRIBUTION WIDTH 14.3 % (11.5-14.5); WHITE BLOOD COUNT 9.7 10^3/ul (4.5-11.0)
[2017-05-05 04:07] LABS: INR 2.25 (0.93-1.08)
[2017-05-05 04:12] LABS: PARTIAL THROMBOPLASTIN TIME 82.5 Seconds (23.7-30.8)
[2017-05-05] MEDS: Insulin Reg-MEDIUM-Coverage SC SCH ×4 (08:39→21:09)
[2017-05-05] MEDS: Oxycodone/Acetaminophen 5/325 mg Tab PO PRN ×3 (08:40→21:07)
--- NOTE | 2017-05-05 11:50 | PN ---
DATE: PULMONARY PROGRESS NOTE SUBJECTIVE: The patient was seen and examined at bedside. She took her oxygen off and she appears to be comfortable without shortness of breath. She is status post transfusion of 2 units of packed red cells and she is on heparin drip. PHYSICAL EXAMINATION: GENERAL: She is awake, alert, and in no distress. VITAL SIGNS: Blood pressure is 130/80, respirations are 20, pulse is 84, and oxygen saturation is 93% on room air. HEENT: Examination of head, ears, nose and throat is within normal limits. NECK: Supple with no jugular vein distentions. CHEST: Symmetrical. CARDIOVASCULAR: S1 and S2, no S3, and regular. PULMONARY: Diminished breath sounds at both bases. No wheezing. GASTROINTESTINAL: Soft and nontender. No organomegaly. EXTREMITIES: Trace edema. SKIN: Clear with no skin rashes and no cyanosis. NEUROLOGICAL: Limited at present time. LABORATORY DATA: New results: The patient with IVC filter in place. She is on heparin and Coumadin. Today, she is oxygenating well. Laboratory reports will be reported later in this note. DIAGNOSTIC IMPRESSION: 1. Extensive bilateral pulmonary emboli. 2. Vaginal bleeding. 3. Cardiomyopathy. 4. Anxiety. PLAN: I have reviewed ventilation perfusion once again, which reveal hypermobility for pulmonary embolism. Extensive emboli were demonstrated on previous PT and confirmed on current ventilation perfusion scan. It is my experience that it takes between 2 and 3 months to resolve the finding of pulmonary emboli on ventilation perfusion scan, so it is not uncommon to see still pulmonary emboli bilaterally. We will continue the treatment with heparin and when INR reaches therapeutic goal with 2 days overlap, we will switch to Coumadin. Francois Hutchins MD MTDD
[2017-05-05] MEDS ORDERED: POLYETHYLENE GLYCOL 3350 17 GM/Dose PACKET PO PRN (13:51)
--- NOTE | 2017-05-05 19:37 | PN ---
DATE: 05/05/2017 SUBJECTIVE: The patient is seen and examined at bedside on the telemetry hinkle. No acute events overnight. She remains afebrile and hemodynamically stable. The patient had been reporting gradual improvement in her vaginal bleed and has not required a blood transfusion in the last 48-hours. This morning, she does continue to complain of left upper extremity edema and discomfort, but otherwise, offers no complaints. OBJECTIVE: VITAL SIGNS: Temperature 98, pulse 98, blood pressure 123/80, respiratory rate 18, oxygen saturation 99% on 2 liters nasal cannula. GENERAL: No apparent distress. HEENT: PERRL. EOMI. No scleral icterus. Mild conjunctival pallor is noted. NECK: No JVD. LUNGS: Clear to auscultation. CARDIOVASCULAR: Regular rate and rhythm. Normal S1 and S2. ABDOMEN: Obese. Normoactive bowel sounds. Soft, nontender, nondistended. EXTREMITIES: Left upper extremity with tense edema and ecchymosis (improving). Lower extremities with trace edema. NEUROLOGIC: Awake, alert and oriented x3. No focal motor deficits. LABORATORY DATA: WBC 9.7 with 59% neutrophils, hemoglobin 9.3, hematocrit 28, platelets 348. Chemistry reviewed and unremarkable. INR 2.25. ASSESSMENT: The patient is a 57-year-old woman with hypertension, type 2 diabetes mellitus, and morbid obesity, who was initially admitted to the ICU status post provoked bilateral PE, status post TPA and diabetic ketoacidosis, who is now status post transfer out of the ICU and maintained on the telemetry hinkle for continued management of bilateral pulmonary emboli and vaginal bleed, which is improving. PLAN: 1. Bilateral pulmonary emboli, provoked. Input from Dr. Pineda noted and appreciated. The patient is status post IVC filter placement in the event that we need to terminate anticoagulation therapy secondary to vaginal bleed. Continue with heparin drip while bridging to Coumadin and the patient will need a therapeutic INR for 2 consecutive days with goal INR of 2 to 3. 2. Vaginal bleed, the patient remains on Provera 20 mg p.o. daily. There has been no further input from EXTENSION SUPERVISOR since initial consultation despite multiple requests for further evaluation given persistent vaginal bleed. We will continue to monitor CBC daily and transfuse to goal hemoglobin greater than 8. 3. Symptomatic anemia secondary to vaginal bleed of unclear etiology. Continue with care as per #2. Continue with Feosol 325 mg p.o. t.i.d. 4. Dilated cardiomyopathy. Input from Dr. Nguyễn noted and appreciated. The patient remains chest pain free and hemodynamically stable. 5. SIRS syndrome, resolved. Input from Dr. Ross of infectious disease noted and the patient remains off antimicrobials and with negative blood cultures. 6. Left upper extremity ecchymosis. Continue with compressions and Percocet 5/325 mg 2 tabs p.o. q. 4 hours p.r.n. pain. Continue with Colace 100 mg p.o. b.i.d. 7. Hypertension. Blood pressure controlled. Continue with lisinopril 5 mg p.o. daily. 8. Type 2 diabetes mellitus. Continue with glimepiride 4 mg p.o. b.i.d. and medium dose insulin sliding scale. We will monitor fingersticks over the following 24 hours and if necessary, we will add second glycemic agent. 9. Prophylaxis. GI prophylaxis is not indicated as the patient is eating. The patient remains on heparin and Coumadin for her acute PE. CODE STATUS: Full code. Jorge Nguyen MD
--- NOTE | 2017-05-06 00:16 | PN ---
DATE: 05/05/2017 Hospital visit on the telemetry floor. For Dr. Roach. SUBJECTIVE: The patient is a 57-year-old female, seen sitting up in a chair, reporting that she still has a mild vaginal bleeding better than what previously had occurred, still significant left upper extremity edema and ecchymotic changes. She is known to have suffered from a pulmonary embolism after having shortness of breath with the patient initially given tPA and heparin drip, which is now being discontinued as she is now therapeutic with her Coumadin dose with INR 2.25 today. She has an elevated CA125 with recent gynecologic evaluation appreciated. She is status post vena cava filter placement with the patient now reporting constipation as she has been taking iron 3 times a day which will be adjusted. She also had ambulated earlier today with assistance. PHYSICAL EXAMINATION: VITAL SIGNS: Temperature is 98, pulse is 98, respirations are 18, blood pressure is 123/80, pulse ox 99%. HEENT: Unremarkable. NECK: Supple. HEART: A tachy rate, regular rhythm. LUNGS: Clear. ABDOMEN: Obese, soft, nontender. EXTREMITIES: +1 edema with ecchymotic changes to left upper extremity. NEUROLOGIC: Awake, alert and oriented. SKIN: Otherwise warm, dry and clear. LABORATORY DATA: The patient's labs were done. White blood cell count 9.7, hemoglobin 9.3 status post transfusion for hemoglobin of 7.4 on 05/01, hematocrit of 28.2, platelet count of 348,000. Chem metabolic panel within limits except for nonfasting glucose of 289. As previously mentioned, her CA125 was 182 recently done. Her INR today is 2.25 with PTT of 75.8. Her rheumatoid factor was 12, negative. CHATO screen was also negative with SATISH-2 testing reported as no mutation detected. The patient did have a mammogram done yesterday. It was read as BI-RADS category II, benign, follow up in 1 year. The patient had a V/Q scan done yesterday showing high probability ventilation perfusion scan for pulmonary embolism with extensive emboli which were demonstrated on previous CT. The patient also had breast ultrasound 2 days prior showed negative findings. Follow up in 1 year. The patient is also status post vena cava filter placement. ASSESSMENT: Bilateral pulmonary emboli, anticoagulation, vaginal bleeding, diabetes mellitus, dilated cardiomyopathy, acute anemia post transfusion, abnormal CA125, obesity. PLAN: The plan for this patient after consultation with Dr. Roach to continue present medical regimen. We will discontinue her heparin if they refer Coumadin. We will adjust the dose as indicated, monitor her labs clinically with iron decreased to once a day. We will add MiraLax for constipation with the patient's prognosis guarded. Rikki Regalado MD
[2017-05-06] MEDS: Insulin Reg-MEDIUM-Coverage SC SCH ×5 (00:57→22:04)
[2017-05-06] MEDS: Oxycodone/Acetaminophen 5/325 mg Tab PO PRN ×3 (02:23→20:01)
[2017-05-06 06:56] LABS: INR 2.85 (0.93-1.08)
[2017-05-06 07:00] LABS: ALB/GLOB RATIO 0.8 (1.1-1.8); ALKALINE PHOSPHATASE 76 U/L (38-133); ALT/SGPT 30 U/L (7-56); AST/SGOT 38 U/L (15-39); BILIRUBIN,TOTAL 0.8 mg/dL (0.2-1.3); BLOOD UREA NITROGEN 15 mg/dL (7-21); CALCIUM 8.5 mg/dL (8.4-10.5); CARBON DIOXIDE 26 mmol/L (21-33); CHLORIDE 97 mmol/L (95-110); GFR AFRICAN-AMERICAN > 60; GLUCOSE,RANDOM 237 mg/dL (70-110); POTASSIUM 4.5 mmol/L (3.6-5.0); SODIUM 132 mmol/L (132-148); TOTAL PROTEIN 6.5 g/dL (5.8-8.3)
[2017-05-06 07:12] LABS: BASO # 0.02 K/mm3 (0.0-2.0); BASO % 0.3 % (0.0-3.0); EOS # 0.4 (0.0-0.7); EOS % 4.8 % (1.5-5.0); GRAN # 4.46 (1.4-6.5); HEMATOCRIT 28.4 % (36.0-48.0); LYMPH # 2.2 (1.2-3.4); LYMPH % 28.1 % (22.0-35.0); MEAN CORPUSCULAR HEMOGLOBIN 29.8 pg (25.0-35.0); MEAN CORPUSCULAR HGB CONC 32.7 g/dl (31.0-37.0); MONO # 0.9 (0.1-0.6); MONO % 10.8 % (1.0-6.0); RED CELL DISTRIBUTION WIDTH 14.6 % (11.5-14.5)
[2017-05-06 07:37] LABS: IRON 49 ug/dL (45-180)
--- NOTE | 2017-05-06 10:33 | PN ---
DATE: 05/06/2017 PULMONARY PROGRESS NOTE SUBJECTIVE: The patient was seen and examined at bedside. She feels comfortable. She is off oxygen and she is off heparin, on Coumadin. She is still complaining of swollen and heavy left arm. PHYSICAL EXAMINATION: VITAL SIGNS: Her temperature is 98, pulse 90, respirations 20, pulse oximetry is 97% on room air, blood pressure 120/72. Her intake and output is negative 900 mL. HEENT: Head, normocephalic and atraumatic. NECK: Supple with no jugular vein distention. CHEST: Symmetrical. LUNGS: Clear to auscultation. CARDIOVASCULAR: S1, S2. No S3. Regular. GASTROINTESTINAL: Soft, nontender. No organomegaly. EXTREMITIES: No edema except for left upper extremity. SKIN: Clear with no skin rashes. No cyanosis. LABORATORY DATA: I reviewed her today's blood work, The chemistries are normal except for elevated blood sugar. The hemoglobin is 9.3, WBC is 8.0. Her INR is 2.85. ASSESSMENT: 1. Bilateral pulmonary emboli. 2. Vaginal bleeding. 3. Respiratory insufficiency. PLAN: The patient is status post IVC filter insertion. She is on Coumadin with therapeutic level. The heparin was stopped by her emergency medical technician/driver. The patient is in no distress. I had opportunity to review the ventilation perfusion scan, which still shows bilateral pulmonary emboli, extensive, which is not surprising because the findings on the ventilation perfusion scan persist for at least 60-90 days after pulmonary emboli, so there is no need to repeat it for at least 2-3 months. Should maintain therapeutic level of INR. I had a long discussion with her regarding long-term anticoagulation and reasons for her pulmonary emboli. Francois Hutchins MD
--- NOTE | 2017-05-06 12:33 | PN ---
DATE: 05/06/2017 SUBJECTIVE: The patient seen earlier today in no acute distress. PHYSICAL EXAMINATION VITAL SIGNS: Temperature is 98, blood pressure is 120/70, respiratory rate of 16. HEENT: Unremarkable. NECK: Supple. LUNGS: Decreased breath sounds. HEART: Normal S1 and S2. ABDOMEN: Soft. LABORATORY DATA: Reveals white count of 8, hemoglobin of 9, platelets of 347 and chemistry reveals BUN of 15, creatinine of 0.6. Review of orders reveals the patient to be off of antibiotics. Microbiology reveals the blood cultures are negative. Microbiology reveals the blood cultures and urine cultures are negative and Dr. Jorge Nguyen's note is appreciated. ASSESSMENT AND PLAN: This is a 57-year-old female with SIRS, systemic inflammatory response syndrome with a hematoma to left arm, acute pulmonary emboli, vaginal bleeding, hypertension, diabetes, morbid obesity with BMI of 44, currently off of antibiotics and no evidence of infection. She has a history of developing nosocomial infections and is requesting for occupational therapy and physical therapy. Brock Gambino MD
--- NOTE | 2017-05-06 15:26 | PN ---
This is the patient's hospital visit on the telemetry floor. For Dr. Roach. SUBJECTIVE: The patient is a 57-year-old female seen sitting up, having lunch, reporting that she has significant discomfort to the left upper extremities, ecchymotic changes with swelling with the patient known to have a pulmonary embolism, now on Coumadin, which is therapeutic, and heparin now being discontinued. She is also being followed for elevated CA-125 with gynecologic evaluation for vaginal bleeding. She is status post vena cava port placement and is now in no acute distress at this visit with her hemoglobin being monitored. OBJECTIVE VITAL SIGNS: Temperature 99, pulse 96, respirations 18, blood pressure 111/69, pulse ox 97%. PHYSICAL EXAM: HEENT: Unremarkable. NECK: Supple. HEART: Tachy rate, regular rhythm. LUNGS: Clear. ABDOMEN: Obese, soft, nontender. EXTREMITIES: +1 edema with ecchymotic changes to left upper extremity. NEUROLOGIC: Awake, alert, and oriented. SKIN: Otherwise, warm, dry, and clear. LABORATORY DATA: The patient's labs were done. White blood cell count of 8.0, hemoglobin 9.3, improvements from a hemoglobin of 7.4 status post transfusion, total of 5 units since 05/02. Her INR today is 2.85. Chem panel within normal limits except for non-fasting glucose of 312. ASSESSMENT: The assessment for this patient is that of bilateral pulmonary emboli, anemia status post bleed, vaginal bleeding, elevated CA-125, hypercoagulable state, on Coumadin, obesity, diabetes mellitus, hypertension. PLAN: The plan for this patient is to continue present medical regimen. The patient will be monitored clinically and with labs with discontinuation of telemetry as per Dr. Florian Nguyễn with the patient to follow up with Dr. Roach in approximately one week after she is discharged. Plan is to keep her INR therapeutic which it is today 2.85 with adjustment of her Coumadin dose and checking her INR. Her iron saturation is 17% with considerations to IV iron as the ferrous sulphate 3 times a day was causing constipation and abdominal discomfort for this patient. Rikki Regalado MD
[2017-05-07] MEDS: Oxycodone/Acetaminophen 5/325 mg Tab PO PRN ×3 (04:00→16:12)
--- NOTE | 2017-05-07 07:29 | PN ---
DATE: 05/05/2017 SUBJECTIVE: The patient seen in bed, in no acute distress, nontoxic. The patient was seen earlier today in 260, bed 2. PHYSICAL EXAMINATION: VITAL SIGNS: Temperature is 98, blood pressure is 105/54, respiratory rate of 18, heart rate of 95. HEENT: Examination of HEENT is unremarkable. NECK: Supple. LUNGS: Have decreased breath sounds. HEART: Normal S1, S2. ABDOMEN: Soft and nontender. No organomegaly, no rebound, no guarding. LABORATORY DATA: Examination reveals a white count of 9.7, hemoglobin of 9, platelets of 348. Chemistries reveals a BUN of 16, creatinine of 0.7, procalcitonin is 0.37. Microbiology reveals that blood cultures are negative. Urine cultures are negative. REVIEW OF ORDERS: Reveals the patient to be off of antibiotics. ASSESSMENT AND PLAN: This is a 57-year-old female with systemic inflammatory response syndrome, probable hematoma on the left arm, history of no source of sepsis identified in a patient with acute pulmonary embolism, on anticoagulation, vaginal bleeding, hypertension, diabetes, morbid obesity with a BMI of 44 with negative cultures, no evidence of pneumonia, negative blood cultures, negative urine cultures, off of antibiotics and CAT scan of the left arm shows no collection. However, the patient is at risk for developing nosocomial infections. Brock Gambino MD
[2017-05-07 07:37] LABS: BASO # 0.02 K/mm3 (0.0-2.0); BASO % 0.2 % (0.0-3.0); EOS # 0.4 (0.0-0.7); EOS % 4.8 % (1.5-5.0); GRAN # 5.16 (1.4-6.5); GRAN % 60.9 % (50.0-68.0); HEMATOCRIT 28.8 % (36.0-48.0); LYMPH % 23.9 % (22.0-35.0); MEAN CORPUSCULAR HGB CONC 32.6 g/dl (31.0-37.0); MEAN PLATELET VOLUME 9.2 fl (7.0-11.0); MONO # 0.9 (0.1-0.6); MONO % 10.2 % (1.0-6.0); RED CELL DISTRIBUTION WIDTH 14.8 % (11.5-14.5); WHITE BLOOD COUNT 8.5 10^3/ul (4.5-11.0)
[2017-05-07 07:48] LABS: INR 3.3 (0.93-1.08)
[2017-05-07 08:03] LABS: ALB/GLOB RATIO 0.9 (1.1-1.8); ALKALINE PHOSPHATASE 80 U/L (38-133); ALT/SGPT 32 U/L (7-56); AST/SGOT 32 U/L (15-39); BILIRUBIN,TOTAL 0.6 mg/dL (0.2-1.3); BLOOD UREA NITROGEN 16 mg/dL (7-21); CALCIUM 8.8 mg/dL (8.4-10.5); CARBON DIOXIDE 25 mmol/L (21-33); CHLORIDE 99 mmol/L (98-107); GFR AFRICAN-AMERICAN > 60; GLUCOSE,RANDOM 242 mg/dL (70-110); POTASSIUM 4.9 mmol/L (3.6-5.0); SODIUM 133 mmol/L (132-148); TOTAL PROTEIN 6.7 g/dL (5.8-8.3)
[2017-05-07] MEDS: Insulin Reg-MEDIUM-Coverage SC SCH ×4 (08:25→21:40)
--- NOTE | 2017-05-07 10:05 | CP.PCM.PN ---
<Leon Francisco - Last Filed: 05/07/17 20:32> Subjective - Date & Time of Evaluation Date of Evaluation: 05/07/17 Time of Evaluation: 07:20 - Subjective Subjective: Heme/onc note for Dr Roach: Pt seen and examined at bedside. No acute events overnight.Denies sob or chest pain. Still is complaining of LUE swelling. Decreased vaginal bleeding. No f/c , n/v/d, palpitations, urinary or bm changes. Objective - Vital Signs/Intake and Output Vital Signs (last 24 hours): Temp Pulse Resp BP Pulse Ox 99.0 F 91 H 18 125/69 98 05/07/17 06:00 05/07/17 06:00 05/07/17 06:00 05/07/17 06:00 05/07/17 06:00 Intake and Output: 05/07/17 05/07/17 06:59 18:59 Intake Total 1070 Output Total 400 Balance 670 - Medications Medications: Current Medications Docusate Sodium (Colace) 100 mg PO BID [facility] Last Admin: 05/06/17 09:53 Dose: Not Given Ferrous Sulfate (Feosol) 324 mg PO DAILY [facility] Last Admin: 05/06/17 09:28 Dose: 324 mg Glimepiride (Amaryl) 4 mg PO BID [facility] Last Admin: 05/06/17 17:00 Dose: 4 mg Insulin Human Regular (Humulin R Med) 0 units SC [facility] PRN Reason: Protocol Last Admin: 05/07/17 08:25 Dose: 5 units Lisinopril (Zestril) 5 mg PO DAILY [facility] Last Admin: 05/06/17 09:28 Dose: 5 mg Medroxyprogesterone Acetate (Provera) 20 mg PO DAILY [facility] Last Admin: 05/06/17 09:28 Dose: 20 mg Metformin HCl (Glucophage) 500 mg PO BID [facility] Oxycodone/Acetaminophen (Percocet 5/325 Mg Tab) 2 tab PO Q4H PRN PRN Reason: Pain, severe (8-10) Stop: 05/07/17 22:27 Last Admin: 05/07/17 04:00 Dose: 2 tab Polyethylene Glycol (Miralax) 17 gm PO DAILY PRN PRN Reason: Constipation Warfarin Sodium (Coumadin) 4 mg PO 1800 [facility] - Labs Labs: 05/07/17 07:10 05/07/17 07:10 PT 35.6 Seconds (9.9-11.8) H* 05/07/17 07:10 INR 3.30 (0.93-1.08) H 05/07/17 07:10 APTT 75.8 Seconds (23.7-30.8) H* 05/05/17 10:27 - Constitutional Appears: No Acute Distress - Head Exam Head Exam: NORMAL INSPECTION - Eye Exam Eye Exam: EOMI, PERRL - ENT Exam ENT Exam: Mucous Membranes Moist - Respiratory Exam Respiratory Exam: Clear to Ausculation Bilateral. absent: Rales, Rhonchi, Wheezes - Cardiovascular Exam Cardiovascular Exam: REGULAR RHYTHM, RRR, +S1, +S2 - GI/Abdominal Exam GI & Abdominal Exam: Soft. absent: Distended, Tenderness - Extremities Exam Extremities Exam: absent: Calf Tenderness, Pedal Edema Additional comments: LUE edema, Radial pulse present - Neurological Exam Neurological Exam: Alert, Awake, Oriented x3 - Psychiatric Exam Psychiatric exam: Normal Affect, Normal Mood - Skin Skin Exam: Dry, Intact, Warm Assessment and Plan - Assessment and Plan (Free Text) Assessment: 57 F presented to the ED with complaint of acute onset shortness of breath found to have massive PE and TPA was administered, currently on heparin drip. Pt is also have some vaginal bleeding; transvaginal US showed endometrial thickening; OBGYN recommended outpatient endometrial biopsy. Pt also developed a L upper extremity swelling - US of upper extremity was negative for DVT and CT of upper ext showed soft tissue swelling. s/p IVC filter placement. Currently on Coumadin. To follow up with OBGYN for endometrial bx and hysteroscopy (elevated CA-125) as an outpatient once more stable. - Coumadin 4 mg todays INR supra therapeutic 4 this am - LUE pain cont - Pain control - occupational therapy ordered - f/u LUE venous US - diagnostic Mammo BIRADS 2 benign finding cont annual screening mammo - Breast US - BIRADS 1 negative cont annual screening - F/u Ca125 elevated 182 - should be f/u as an outpatient for hysteroscopy and bx - f/u HE4 - Hb of 9.4 this am - - No Jak2 Mutation detected, Homocysteine neg, factor 5 mutation not detected, antithrombin neg, Protein C wnl, Protein S elevated. 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 <Theresa Roach P - Last Filed: 05/12/17 18:31> Objective - Vital Signs/Intake and Output Vital Signs (last 24 hours): Temp Pulse Resp BP Pulse Ox 98.1 F 86 20 118/69 99 05/10/17 08:53 05/10/17 09:27 05/10/17 08:53 05/10/17 09:27 05/10/17 08:53 - Labs Labs: 05/10/17 06:30 05/10/17 06:30 PT 26.2 Seconds (9.9-11.8) H 05/10/17 06:30 INR 2.43 (0.93-1.08) H 05/10/17 06:30 APTT 75.8 Seconds (23.7-30.8) H* 05/05/17 10:27 Attending/Attestation - Attestation I have personally seen and examined this patient.: Yes I have fully participated in the care of the patient.: Yes I have reviewed all pertinent clinical information, including history, physical exam and plan: Yes
--- NOTE | 2017-05-07 12:27 | CP.PCM.PN ---
Subjective - Date & Time of Evaluation Date of Evaluation: 05/07/17 Time of Evaluation: 09:45 - Subjective Subjective: Still having a little pain in the left upper extremity but a little less. No fevers overnight. Objective - Vital Signs/Intake and Output Vital Signs (last 24 hours): Temp Pulse Resp BP Pulse Ox 99.0 F 91 H 18 125/69 98 05/07/17 06:00 05/07/17 06:00 05/07/17 06:00 05/07/17 06:00 05/07/17 06:00 Intake and Output: 05/07/17 05/07/17 06:59 18:59 Intake Total 1070 Output Total 400 Balance 670 - Medications Medications: Current Medications Docusate Sodium (Colace) 100 mg PO BID [facility] Last Admin: 05/06/17 09:53 Dose: Not Given Ferrous Sulfate (Feosol) 324 mg PO DAILY [facility] Last Admin: 05/06/17 09:28 Dose: 324 mg Glimepiride (Amaryl) 4 mg PO BID [facility] Last Admin: 05/06/17 17:00 Dose: 4 mg Insulin Human Regular (Humulin R Med) 0 units SC [facility] PRN Reason: Protocol Last Admin: 05/06/17 22:04 Dose: Not Given Lisinopril (Zestril) 5 mg PO DAILY [facility] Last Admin: 05/06/17 09:28 Dose: 5 mg Medroxyprogesterone Acetate (Provera) 20 mg PO DAILY [facility] Last Admin: 05/06/17 09:28 Dose: 20 mg Metformin HCl (Glucophage) 500 mg PO BID [facility] Oxycodone/Acetaminophen (Percocet 5/325 Mg Tab) 2 tab PO Q4H PRN PRN Reason: Pain, severe (8-10) Stop: 05/07/17 22:27 Last Admin: 05/07/17 04:00 Dose: 2 tab Polyethylene Glycol (Miralax) 17 gm PO DAILY PRN PRN Reason: Constipation Warfarin Sodium (Coumadin) 4 mg PO 1800 [facility] - Labs Labs: 05/07/17 07:10 05/07/17 07:10 PT 35.6 Seconds (9.9-11.8) H* 05/07/17 07:10 INR 3.30 (0.93-1.08) H 05/07/17 07:10 APTT 75.8 Seconds (23.7-30.8) H* 05/05/17 10:27 - Constitutional Appears: Non-toxic, No Acute Distress - Head Exam Head Exam: NORMAL INSPECTION - Respiratory Exam Respiratory Exam: Decreased Breath Sounds - Cardiovascular Exam Cardiovascular Exam: +S1, +S2 - GI/Abdominal Exam GI & Abdominal Exam: Soft. absent: Tenderness - Extremities Exam Additional comments: left upper extremity with some ecchymoses and swelling Assessment and Plan - Assessment and Plan (Free Text) Plan: Assessment S/P Systemic Inflammatory response syndrome, consider reactive in relation to probable hematoma on the left arm; no source of sepsis identified acute pulmonary embolism, on anticoagulation vaginal bleeding, etiology to be determined HTN DM morbid obesity with BMI 44 Plan continue to monitor off antibiotics since she is at risk for infection reviewed CT scan of the left arm which does not show fluid collection
--- NOTE | 2017-05-07 13:36 | PN ---
DATE: 05/07/2017 PULMONARY NOTE SUBJECTIVE: The patient appears comfortable this morning. She is not short of breath at rest. She has no chest pain. PHYSICAL EXAMINATION: VITAL SIGNS: Last temperature recorded was 99.0, pulse this morning 88, respiratory rate 18, blood pressure 107/67. Oxygen saturation on room air is 97%. HEENT: Normocephalic and atraumatic. NECK: No JVD. CARDIOVASCULAR: Positive S1 and S2. No S3 gallop. LUNGS: Clear bilaterally. GI: Abdomen is soft, nontender and nondistended. Bowel sounds are positive. EXTREMITIES: Mild edema is noted in the lower extremities. Mild edema is also noted in the left upper extremity. There is no cyanosis or clubbing. The calves are nontender to palpation. SKIN: Mild ecchymotic changes, left upper extremity. NEUROLOGIC: Limited at the present time. IMPRESSION: 1. Bilateral pulmonary emboli. 2. Vaginal bleeding - resolving. 3. Anemia. 4. Diabetes mellitus. PLAN: The patient appears comfortable this morning. She is not short of breath at rest. She denies chest pain. She states she is feeling much better overall. In addition, the patient states to have much less vaginal bleeding. At this point in time, the patient is hemodynamically stable, with an oxygen saturation on room air of 97%. She is currently on Coumadin. Repeat a.m. labs are pending. Hematology evaluation is ongoing. Inputs are noted. Clinical status of this patient is significantly improved-compared to the initial presentation. I will discuss the above with Dr. Nguyen. Rosendo Brian MD ISMAEL
--- NOTE | 2017-05-07 15:17 | PN ---
DATE: 05/07/2017 CARDIOLOGY FOLLOWUP SUBJECTIVE: The patient is comfortable on the chair. No shortness of breath. No chest pain. OBJECTIVE: VITAL SIGNS: Blood pressure 125/69, heart rates in the 90s, normal sinus rhythm. NECK: Negative JVD. LUNGS: Without rales. HEART: S1, S2. EXTREMITIES: Without edema. LABORATORY DATA: Hemoglobin is 9.4. Chemistries, glucose 242. IMPRESSION: 1. Status post acute pulmonary embolism. 2. Diabetes mellitus. 3. Vaginal bleeding. 4. Dilated cardiomyopathy. Given these findings, the patient's INR is now 3.3. The patient is on Coumadin. We will discontinue telemetry today. We will arrange for an outpatient stress test later on the near future as an outpatient, once her bleeding and her pulmonary embolism is stabilized. Florian Nguyễn MD
--- NOTE | 2017-05-07 20:44 | US ---
PROCEDURE: Left upper extremity venous ultrasound HISTORY: Arm pain and swelling. Evaluate for deep venous thrombosis. PHYSICIAN(S): Florian Zhang MD. FINDINGS: The visualized leftinternal jugular vein is sonographically normal and compressible. No evidence of obstruction or thrombus is seen. The visualized segments of the left subclavian vein are patent with normal waveforms. No sonographic evidence of obstruction or thrombosis is seen. The visualized deep venous system of the proximal leftupper extremity is sonographically normal and compressible. There is a heterogeneous 2.9 x 6.7 cm collection in the left axilla. This could represent hematoma. IMPRESSION: 1. No sonographic evidence for deep venous thrombosis in the visualized segments of the left upper extremity.
--- NOTE | 2017-05-07 21:22 | PN ---
SUBJECTIVE: The patient seen and examined at bedside on the telemetry hinkle. No acute events overnight. She remains afebrile and hemodynamically stable. She continues to report improvement in her vaginal bleed and morning labs demonstrate stability of her hemoglobin levels. Otherwise, she continues to complain of discomfort to her left upper extremity, which is stable, and offers no other complaints. OBJECTIVE: GENERAL: No apparent distress. VITAL SIGNS: Temperature 99, pulse 91, blood pressure 125/69, respiratory rate 18, oxygen saturation 98% on room air. HEENT: PERRL. EOMI. No scleral icterus. Mild conjunctival pallor is noted. NECK: No JVD. No bruits. LUNGS: Clear to auscultation. CARDIOPULMONARY: Regular rate and rhythm. Normal S1 and S2. ABDOMEN: Obese. Normoactive bowel sounds. Soft, nontender, nondistended. EXTREMITIES: Left upper extremity with edema and ecchymosis (improving). Bilateral lower extremities with trace edema. NEUROLOGIC: Awake, alert, and oriented x3. No focal motor deficit. LABORATORY DATA: WBC 8.5, hemoglobin 9.4, hematocrit 29, platelets 365. Chemistry reviewed and unremarkable. INR 3.3. ASSESSMENT: The patient is a 57-year-old woman with hypertension, type 2 diabetes mellitus, and morbid obesity, who was initially admitted to the ICU status post provoked bilateral pulmonary embolism, status post tPA and diabetic ketoacidosis, who is now transferred out of the ICU and maintained on the telemetry hinkle for continued management of bilateral pulmonary emboli and vaginal bleed, which are improving. PLAN: 1. Bilateral pulmonary emboli, unprovoked. Input from Dr. Pineda and Dr. Hutchins noted and greatly appreciated. The patient is status post IVC filter placement by Dr. Florian Zhang. She remains on Coumadin, which will be lowered today to Coumadin 4 mg p.o. daily given a slightly supratherapeutic INR of 3.3 (her goal INR is 2-3). 2. Vaginal bleed of unclear etiology. The patient remains on Provera 20 mg p.o. daily and arrangements will be made for followup with MANUFACTURING PROCESS ENGINEER upon discharge. The vaginal bleeding is improving; however, not fully resolved. We will continue to monitor hemoglobin daily and transfuse to goal greater than 8. 3. Symptomatic anemia secondary to vaginal bleed of unclear etiology. Continue with care per #2. Continue with Feosol. 4. Dilated cardiomyopathy. Input from Dr. Nguyễn noted and appreciated. The patient remains chest pain free and hemodynamically stable. Continue with current care as per Dr. Nguyễn. 5. SIRS syndrome, resolved. The patient remains off antimicrobials and with negative blood cultures. Furthermore, she remains afebrile and hemodynamically stable. 6. Left upper extremity ecchymosis. Continue with compression, elevation of the extremity. 7. Hypertension. Blood pressure controlled. Continue with lisinopril 5 mg p.o. daily. 8. Type 2 diabetes mellitus. Continue with glimepiride 4 mg p.o. b.i.d. and medium dose insulin sliding scale. We will start metformin 500 mg p.o. b.i.d. to improve glycemic control. 9. Prophylaxis. GI prophylaxis not indicated. This patient is eating. The patient remains on Coumadin for treatment of her PE. DVT prophylaxis not indicated. CODE STATUS: Full code. Jorge Nguyen MD
[2017-05-07] MEDS ORDERED: Oxycodone/Acetaminophen 5/325 mg Tab PO STA (23:35)
--- NOTE | 2017-05-07 23:37 | CP.PCM.PN ---
Subjective - Date & Time of Evaluation Date of Evaluation: 05/07/17 Time of Evaluation: 23:35 - Subjective Subjective: Patient was seen at bedside. She complained of pain in left arm. It is in entire arm, sharp pain. Has no other complaints now. She was on percocet. On no analgesics now. Denies chest pain, sob. ROS:Negative except as mentioned above. Percocet timed out in day shift. This 57 neel old white woman was admitted with shortness of breath, hypotension, pulmonary embolism. Has PMH of obesity, HTN,DM. Objective - Vital Signs/Intake and Output Vital Signs (last 24 hours): Temp Pulse Resp BP Pulse Ox 98.9 F 96 H 20 128/77 99 05/07/17 16:30 05/07/17 16:30 05/07/17 16:30 05/07/17 16:30 05/07/17 16:30 Intake and Output: 05/07/17 05/08/17 18:59 06:59 Intake Total 1070 660 Output Total 400 900 Balance 670 -240 - Medications Medications: Current Medications Docusate Sodium (Colace) 100 mg PO BID [facility] Last Admin: 05/07/17 17:25 Dose: 100 mg Ferrous Sulfate (Feosol) 324 mg PO DAILY [facility] Last Admin: 05/07/17 11:10 Dose: 324 mg Glimepiride (Amaryl) 4 mg PO BID [facility] Last Admin: 05/07/17 17:25 Dose: 4 mg Insulin Human Regular (Humulin R Med) 0 units SC ACHS [facility] PRN Reason: Protocol Last Admin: 05/07/17 21:40 Dose: Not Given Lisinopril (Zestril) 5 mg PO DAILY [facility] Last Admin: 05/07/17 11:09 Dose: 5 mg Medroxyprogesterone Acetate (Provera) 20 mg PO DAILY [facility] Last Admin: 05/07/17 11:10 Dose: 20 mg Metformin HCl (Glucophage) 500 mg PO BID [facility] Last Admin: 05/07/17 17:24 Dose: 500 mg Polyethylene Glycol (Miralax) 17 gm PO DAILY PRN PRN Reason: Constipation Warfarin Sodium (Coumadin) 4 mg PO 1800 [facility] - Labs Labs: 05/07/17 07:10 05/07/17 07:10 PT 35.6 Seconds (9.9-11.8) H* 05/07/17 07:10 INR 3.30 (0.93-1.08) H 05/07/17 07:10 APTT 75.8 Seconds (23.7-30.8) H* 05/05/17 10:27 - Constitutional Appears: Well, No Acute Distress - Head Exam Head Exam: ATRAUMATIC, NORMAL INSPECTION, NORMOCEPHALIC Additional comments: Sitting in a chair now. - Eye Exam Eye Exam: Normal appearance - ENT Exam ENT Exam: Normal External Ear Exam - Neck Exam Neck Exam: Normal Inspection - Respiratory Exam Respiratory Exam: NORMAL BREATHING PATTERN - Cardiovascular Exam Cardiovascular Exam: absent: JVD - GI/Abdominal Exam GI & Abdominal Exam: absent: Distended - Rectal Exam Rectal Exam: Deferred - Exam Additional comments: Deferred. - Extremities Exam Extremities Exam: Normal Inspection - Back Exam Back Exam: NORMAL INSPECTION - Neurological Exam Neurological Exam: Alert, Oriented x3 - Psychiatric Exam Psychiatric exam: Normal Affect, Normal Mood - Skin Skin Exam: Normal Color Assessment and Plan - Assessment and Plan (Free Text) Assessment: Left arm pain. Pulmonary embolism. HTN. DM. Obesity. Plan: Percocet 2 tabs stat. Continue present management.
[2017-05-08 07:36] LABS: BASO # 0.02 K/mm3 (0.0-2.0); BASO % 0.2 % (0.0-3.0); EOS # 0.3 (0.0-0.7); EOS % 4.2 % (1.5-5.0); GRAN # 4.96 (1.4-6.5); GRAN % 61.2 % (50.0-68.0); HEMATOCRIT 29.9 % (36.0-48.0); LYMPH # 2.2 (1.2-3.4); LYMPH % 26.8 % (22.0-35.0); MEAN CORPUSCULAR HEMOGLOBIN 30.5 pg (25.0-35.0); MEAN CORPUSCULAR HGB CONC 33.1 g/dl (31.0-37.0); MEAN PLATELET VOLUME 8.7 fl (7.0-11.0); MONO # 0.6 (0.1-0.6); MONO % 7.6 % (1.0-6.0); RED CELL DISTRIBUTION WIDTH 14.7 % (11.5-14.5); WHITE BLOOD COUNT 8.1 10^3/ul (4.5-11.0)
[2017-05-08 07:48] LABS: INR 2.69 (0.93-1.08)
[2017-05-08 07:49] LABS: ALB/GLOB RATIO 0.8 (1.1-1.8); ALKALINE PHOSPHATASE 84 U/L (38-133); ALT/SGPT 39 U/L (7-56); AST/SGOT 37 U/L (15-39); BILIRUBIN,TOTAL 0.8 mg/dL (0.2-1.3); BLOOD UREA NITROGEN 16 mg/dL (7-21); CARBON DIOXIDE 25 mmol/L (21-33); CHLORIDE 99 mmol/L (95-110); GFR AFRICAN-AMERICAN > 60; GLUCOSE,RANDOM 218 mg/dL (70-110); POTASSIUM 4.9 mmol/L (3.6-5.0); SODIUM 134 mmol/L (132-148); TOTAL PROTEIN 7.2 g/dL (5.8-8.3)
[2017-05-08] MEDS: Insulin Reg-MEDIUM-Coverage SC SCH ×4 (08:18→21:46)
--- NOTE | 2017-05-08 08:23 | PN ---
DATE: 05/08/2017 SUBJECTIVE: The patient appears comfortable this morning. She is not short of breath at rest. PHYSICAL EXAMINATION VITAL SIGNS: Temperature is 98.9, pulse is approximately 88, respirations 18, blood pressure 128/77. Oxygen saturation on room air is 99%. HEENT: Normocephalic, atraumatic. NECK: No JVD. CARDIOVASCULAR: Positive S1 and S2. No S3. LUNGS: Clear bilaterally. GASTROINTESTINAL: Abdomen is soft, nontender, nondistended. Bowel sounds are positive. EXTREMITIES: Mild edema is noted in both lower extremities. Less edema-left upper extremity. There is no cyanosis or clubbing. The calves are nontender to palpation. SKIN: Less ecchymotic changes-left upper extremity. NEUROLOGIC: Limited at the present time. IMPRESSION: 1. Bilateral pulmonary emboli. 2. Vaginal bleeding-resolved. 3. Anemia. 4. Diabetes mellitus. PLAN: The patient appears very comfortable this morning. She is not short of breath at rest. She has no chest pain. She states she is feeing much, much better overall. On physical exam, her lungs remain clear. Oxygen saturation on room air is now 99%. The patient remains on Coumadin therapy. Repeat a.m. labs are pending. The INR yesterday was 3.30. I would continue with the cardiology and vascular evaluations. Inputs are noted. Pulmonary status of the patient is significantly improved overall. The patient is advised to be out of bed as much as possible. I will discuss the above with Dr. Nguyen. Rosendo Brian MD MTDDarío
[2017-05-08] MEDS: Oxycodone/Acetaminophen 5/325 mg Tab PO PRN ×2 (09:54→21:05)
--- NOTE | 2017-05-08 10:57 | CP.PCM.CON ---
History of Present Illness - History of Present Illness History of Present Illness: Surgery Consult for Dr. Rincon Pt is a 57 y/o obese F with MPH of HTN and DM who presented to the ED for shortness of breath and chest pain. Pt was found to have a PE and treated with heparin and coumadin. On the last day of her stay in the ICU 12 days ago the pt started to develop pain and bruising in her left UE which she could not describe other than denying it being burning in nature and says it was a "51 out of 10" at its worst. Pt also developed weakness and numbness in her left arm and hand. Pt says it is better now and rates her pain at a 7/10. She also says she can now raise her arm above her head which she was not able to do before but she still cannot make a fist. Patient says she also has numbness on the medial aspect of her lower arm and hand as well as swelling throughout her left upper extremity. Patient says she noticed a large hard swollen area over the posterior aspect of her upper arm. Patient says she has never had anything like this before. Pt says the pain is made worse by touching the swollen area but is made better when she gets her pain medication. Pt denies F/C, CP, SOB, similar symptoms in the right arm or LEs. PMH: HTN, DM PSH: denies Allergies: NKDA Social: denies tobacco, alcohol, drug use Family Hx: denies Review of Systems - Review of Systems All systems: reviewed and no additional remarkable complaints except (as per HPI ) Past Patient History - Past Social History Smoking Status: Never Smoked - CARDIAC Hx Cardiac Disorders: Yes Hx Hypertension: Yes - PULMONARY Hx Respiratory Disorders: Yes (PULMONARY EMBOLISM 04-23-17) - NEUROLOGICAL Hx Neurological Disorder: No - HEENT Hx HEENT Problems: Yes (STRABISMUS WITH SX.) - ENDOCRINE/METABOLIC Hx Diabetes Mellitus Type 2: Yes - HEMATOLOGICAL/ONCOLOGICAL Hx Blood Disorders: No - INTEGUMENTARY Hx Dermatological Problems: No - MUSCULOSKELETAL/RHEUMATOLOGICAL Hx Musculoskeletal Disorders: No Hx Falls: No - GASTROINTESTINAL Hx Gastrointestinal Disorders: No - GENITOURINARY/GYNECOLOGICAL Hx Genitourinary Disorders: No - PSYCHIATRIC Hx Psychophysiologic Disorder: No Hx Substance Use: No - SURGICAL HISTORY Hx Surgeries: Yes (EYE SX"LAZY EYE") - ANESTHESIA Hx Anesthesia: No Meds Allergies/Adverse Reactions: Allergies Allergy/AdvReac Type Severity Reaction Status Date / Time No Known Allergies Allergy Verified 04/23/17 12:08 - Medications Medications: Current Medications Docusate Sodium (Colace) 100 mg PO BID [facility] Last Admin: 05/08/17 09:45 Dose: 100 mg Ferrous Sulfate (Feosol) 324 mg PO DAILY [facility] Last Admin: 05/08/17 09:46 Dose: 324 mg Glimepiride (Amaryl) 4 mg PO BID [facility] Last Admin: 05/08/17 09:46 Dose: 4 mg Insulin Human Regular (Humulin R Med) 0 units SC [facility] PRN Reason: Protocol Last Admin: 05/08/17 08:18 Dose: 3 units Lisinopril (Zestril) 5 mg PO DAILY [facility] Last Admin: 05/08/17 09:46 Dose: 5 mg Medroxyprogesterone Acetate (Provera) 20 mg PO DAILY [facility] Last Admin: 05/08/17 09:56 Dose: 20 mg Metformin HCl (Glucophage) 500 mg PO BID [facility] Last Admin: 05/08/17 09:45 Dose: 500 mg Oxycodone/Acetaminophen (Percocet 5/325 Mg Tab) 2 tab PO Q4H PRN PRN Reason: Pain, severe (8-10) Stop: 05/11/17 08:18 Last Admin: 05/08/17 09:54 Dose: 2 tab Polyethylene Glycol (Miralax) 17 gm PO DAILY PRN PRN Reason: Constipation Warfarin Sodium (Coumadin) 4 mg PO 1800 [facility] Physical Exam - Constitutional Appears: Non-toxic, No Acute Distress - Head Exam Head Exam: NORMAL INSPECTION - Eye Exam Eye Exam: EOMI - ENT Exam ENT Exam: Mucous Membranes Moist - Respiratory Exam Respiratory Exam: NORMAL BREATHING PATTERN. absent: Accessory Muscle Use, Respiratory Distress - Cardiovascular Exam Cardiovascular Exam: REGULAR RHYTHM. absent: Bradycardia, Tachycardia - Extremities Exam Extremities exam: Positive for: normal capillary refill (b/l UEs), tenderness ( LUE) Additional comments: Upper Extremities: Signs of new and old bruising of left upper extremityand axilla. Swelling noted throughout LUE. Capillary refill <2sec b/l. Skin warm and dry b/l. Pulses 2+ b/l. Decrease director of materials management strength in LUE as patient is not able to make a fist. Pt able to wiggle fingers of left hand. Radial nerve intact b/l. Mildly tender, softball sized, hard area of swelling in posterior aspect of left proximal arm. - Neurological Exam Neurological exam: Alert, Oriented x3 - Psychiatric Exam Psychiatric exam: Normal Affect, Normal Mood - Skin Skin Exam: Dry, Intact, Warm Results - Vital Signs Recent Vital Signs: Last Vital Signs Temp 98.5 F 05/08/17 08:15 Pulse 105 H 05/08/17 08:15 Resp 20 05/08/17 08:15 BP 140/80 05/08/17 08:18 Pulse Ox 97 05/08/17 08:15 - Labs Result Diagrams: 05/09/17 05:30 05/09/17 05:30 Labs: Laboratory Results - last 24 hr 05/07/17 05/07/17 05/07/17 11:29 17:18 21:36 WBC RBC Hgb Hct MCV MCH MCHC RDW Plt Count MPV Gran % Lymph % (Auto) Cassia % (Auto) Eos % (Auto) Baso % (Auto) Gran # Lymph # Cassia # Eos # Baso # PT INR Sodium Potassium Chloride Carbon Dioxide Anion Gap BUN Creatinine Est GFR ( Amer) Est GFR (Non-Af Amer) POC Glucose (mg/dL) 316 H 214 H 184 H Random Glucose Calcium Total Bilirubin AST ALT Alkaline Phosphatase Total Protein Albumin Globulin Albumin/Globulin Ratio 05/08/17 05/08/17 05/08/17 07:00 07:00 07:00 WBC 8.1 RBC 3.25 L Hgb 9.9 L Hct 29.9 L MCV 92.0 MCH 30.5 MCHC 33.1 RDW 14.7 H Plt Count 365 MPV 8.7 Gran % 61.2 Lymph % (Auto) 26.8 Cassia % (Auto) 7.6 H Eos % (Auto) 4.2 Baso % (Auto) 0.2 Gran # 4.96 Lymph # 2.2 Cassia # 0.6 Eos # 0.3 Baso # 0.02 PT 29.0 H INR 2.69 H Sodium 134 Potassium 4.9 Chloride 99 Carbon Dioxide 25 Anion Gap 15 BUN 16 Creatinine 0.6 Est GFR ( Amer) > 60 Est GFR (Non-Af Amer) > 60 POC Glucose (mg/dL) Random Glucose 218 H Calcium 9.0 Total Bilirubin 0.8 AST 37 ALT 39 Alkaline Phosphatase 84 Total Protein 7.2 Albumin 3.2 Globulin 4.0 Albumin/Globulin Ratio 0.8 L 05/08/17 07:18 WBC RBC Hgb Hct MCV MCH MCHC RDW Plt Count MPV Gran % Lymph % (Auto) Cassia % (Auto) Eos % (Auto) Baso % (Auto) Gran # Lymph # Cassia # Eos # Baso # PT INR Sodium Potassium Chloride Carbon Dioxide Anion Gap BUN Creatinine Est GFR ( Amer) Est GFR (Non-Af Amer) POC Glucose (mg/dL) 213 H Random Glucose Calcium Total Bilirubin AST ALT Alkaline Phosphatase Total Protein Albumin Globulin Albumin/Globulin Ratio Assessment & Plan - Assessment and Plan (Free Text) Assessment: 57 y/o F s/p PE with left arm pain. Plan: -Need for further imaging pending attending recs -Elevation of left arm -warm compresses -continue present management per medicine Will d/w Dr. Sergey Messer DO PGY1
--- NOTE | 2017-05-08 11:58 | CP.PCM.PN ---
<Leon Francisco - Last Filed: 05/08/17 11:53> Subjective - Date & Time of Evaluation Date of Evaluation: 05/08/17 Time of Evaluation: 09:00 - Subjective Subjective: Heme/onc note for Dr Roach: Pt seen and examined at bedside. No acute events overnight. No sob or chest pain but still c/o LUE swelling and pain. Vaginal bleeding less. No f/c, n/v/d , palpitations, urinary or bm changes. Objective - Vital Signs/Intake and Output Vital Signs (last 24 hours): Temp Pulse Resp BP Pulse Ox 98.5 F 105 H 20 140/80 97 05/08/17 08:15 05/08/17 08:15 05/08/17 08:15 05/08/17 08:18 05/08/17 08:15 Intake and Output: 05/08/17 05/08/17 06:59 18:59 Intake Total 1140 Output Total 900 Balance 240 - Medications Medications: Current Medications Docusate Sodium (Colace) 100 mg PO BID [facility] Last Admin: 05/08/17 09:45 Dose: 100 mg Ferrous Sulfate (Feosol) 324 mg PO DAILY [facility] Last Admin: 05/08/17 09:46 Dose: 324 mg Glimepiride (Amaryl) 4 mg PO BID [facility] Last Admin: 05/08/17 09:46 Dose: 4 mg Insulin Human Regular (Humulin R Med) 0 units SC [facility] PRN Reason: Protocol Last Admin: 05/08/17 08:18 Dose: 3 units Lisinopril (Zestril) 5 mg PO DAILY [facility] Last Admin: 05/08/17 09:46 Dose: 5 mg Medroxyprogesterone Acetate (Provera) 20 mg PO DAILY [facility] Last Admin: 05/08/17 09:56 Dose: 20 mg Metformin HCl (Glucophage) 500 mg PO BID [facility] Last Admin: 05/08/17 09:45 Dose: 500 mg Oxycodone/Acetaminophen (Percocet 5/325 Mg Tab) 2 tab PO Q4H PRN PRN Reason: Pain, severe (8-10) Stop: 05/11/17 08:18 Last Admin: 05/08/17 09:54 Dose: 2 tab Polyethylene Glycol (Miralax) 17 gm PO DAILY PRN PRN Reason: Constipation Warfarin Sodium (Coumadin) 4 mg PO 1800 [facility] - Labs Labs: 05/08/17 07:00 05/08/17 07:00 PT 29.0 Seconds (9.9-11.8) H 05/08/17 07:00 INR 2.69 (0.93-1.08) H 05/08/17 07:00 APTT 75.8 Seconds (23.7-30.8) H* 05/05/17 10:27 - Constitutional Appears: No Acute Distress - Head Exam Head Exam: ATRAUMATIC, NORMAL INSPECTION, NORMOCEPHALIC - Eye Exam Eye Exam: EOMI, Normal appearance, PERRL Pupil Exam: NORMAL ACCOMODATION, PERRL - ENT Exam ENT Exam: Mucous Membranes Moist, Normal Exam - Neck Exam Neck Exam: Full ROM, Normal Inspection. absent: Lymphadenopathy - Respiratory Exam Respiratory Exam: Clear to Ausculation Bilateral, NORMAL BREATHING PATTERN. absent: Wheezes - Cardiovascular Exam Cardiovascular Exam: REGULAR RHYTHM, +S1, +S2. absent: Murmur - GI/Abdominal Exam GI & Abdominal Exam: Soft. absent: Distended, Tenderness - Extremities Exam Extremities Exam: absent: Calf Tenderness, Pedal Edema Additional comments: LUE edema limited ROM pulses intact - Back Exam Back Exam: NORMAL INSPECTION - Neurological Exam Neurological Exam: Alert, Awake, Oriented x3 - Psychiatric Exam Psychiatric exam: Normal Affect, Normal Mood - Skin Skin Exam: Dry, Intact, Normal Color, Warm Assessment and Plan - Assessment and Plan (Free Text) Assessment: 57 F presented to the ED with complaint of acute onset shortness of breath found to have massive PE and TPA was administered, currently on heparin drip. Pt is also have some vaginal bleeding; transvaginal US showed endometrial thickening; OBGYN recommended outpatient endometrial biopsy. Pt also developed a L upper extremity swelling - US of upper extremity was negative for DVT and CT of upper ext showed soft tissue swelling. s/p IVC filter placement. Currently on Coumadin. To follow up with OBGYN for endometrial bx and hysteroscopy (elevated CA-125) as an outpatient once more stable. - Coumadin 4 mg - todays INR therapeutic 2.69 this am - Vasc surg consulted for LUE swelling - will f/u - IR- vasc consulted for recs - LUE pain cont - Pain control - occupational therapy ordered - f/u LUE venous US was negative for DVT but showed a hematoma in the axilla - Occupational therapy ordered - Diagnostic Mammo BIRADS 2 benign finding cont annual screening mammo - Breast US - BIRADS 1 negative cont annual screening - F/u Ca125 elevated 182 - should be f/u as an outpatient for hysteroscopy and bx - f/u HE4 - Hb of 9.4 this am - - No Jak2 Mutation detected, Homocysteine neg, factor 5 mutation not detected, antithrombin neg, Protein C wnl, Protein S elevated. - Fibrinogen elevated 660 , Fact 8 activity 246 elevated, Lipoprotein A - Hexagonal phase confirm positive, Lupus anticoag indeterminate - will f/u with path/lab regarding clinical significance - F/u hypercoagubility work up - RF 12, CHATO negative - CT chest abd & pelvis shows PE, no evidence of malignancy - F/u SHIP SUPERINTENDENT recs - on Progesterone - ID recs -d/julisa abx and observe - Plm recs - V/Q scan in 6 weeks - F/u cardio recs - Daily labs Case and plan was reviewed an discussed in detail with Dr Roach. <Theresa Roach P - Last Filed: 05/11/17 23:26> Objective - Vital Signs/Intake and Output Vital Signs (last 24 hours): Temp Pulse Resp BP Pulse Ox 98.1 F 86 20 118/69 99 05/10/17 08:53 05/10/17 09:27 05/10/17 08:53 05/10/17 09:27 05/10/17 08:53 - Labs Labs: 05/10/17 06:30 05/10/17 06:30 PT 26.2 Seconds (9.9-11.8) H 05/10/17 06:30 INR 2.43 (0.93-1.08) H 05/10/17 06:30 APTT 75.8 Seconds (23.7-30.8) H* 05/05/17 10:27 Attending/Attestation - Attestation I have personally seen and examined this patient.: Yes I have fully participated in the care of the patient.: Yes I have reviewed all pertinent clinical information, including history, physical exam and plan: Yes
--- NOTE | 2017-05-08 13:42 | PN ---
SUBJECTIVE: The patient was seen and examined at bedside on the general medical hinkle. No acute events overnight. She remains afebrile and hemodynamically stable and is status post transfer from the telemetry hinkle. This morning, she states she feels well overall and reports near resolution of her vaginal bleed. She continues to report left upper extremity edema and mild discomfort, but states that it is relatively stable and has not been getting worse. Otherwise, she offers no complaints. PHYSICAL EXAMINATION VITAL SIGNS: Temperature is 98.5, pulse is 105, blood pressure is 140/80, respiratory rate is 20, and oxygen saturation is 97% on room air. GENERAL: No apparent distress. HEENT: PERRL. EOMI. No scleral icterus. Mild conjunctival pallor is noted. NECK: No JVD. No bruits. LUNGS: Clear to auscultation. CARDIOVASCULAR: Regular rate and rhythm. Normal S1 and S2. ABDOMEN: Obese. Normoactive bowel sounds. Soft, nontender, and nondistended. EXTREMITIES: Left upper extremity with edema and ecchymosis. Bilateral lower extremities with trace edema. NEUROLOGIC: Awake, alert, and oriented x3. No focal motor deficits. LABORATORY DATA: WBC of 8.1 with 61% neutrophils, hemoglobin of 9.9, hematocrit of 30, and platelets of 365. Chemistry reviewed and unremarkable. INR of 2.69. ASSESSMENT: The patient is a 57-year-old woman with hypertension, type 2 diabetes mellitus and morbid obesity who was initially admitted to the intensive care unit status post provoked bilateral pulmonary emboli s/p tPA who remains hospitalized for continued anticoagulation with bilateral pulmonary emboli and management of vaginal bleed, which is resolving. PLAN: 1. Bilateral pulmonary emboli, provoked. Input from Dr. Brian noted and greatly appreciated. The patient is also status post IVC filter placement by Dr. Florian Zhang. She remains on Coumadin 4 mg p.o. daily, which has been adjusted given her supratherapeutic INR of 3.3 yesterday. Morning labs demonstrated an INR of 2.69 with goal INR of 2 to 3. 2. Vaginal bleed of unclear etiology. The patient remains on Provera 20 mg p.o. daily and arrangements will be made for outpatient IMPLEMENTATION ENGINEER followup. Continue to monitor CBC daily and transfuse to goal hemoglobin greater than 8. 3. Symptomatic anemia secondary to vaginal bleed of unclear etiology. Continue with care as per number 2. Continue with Feosol. 4. Dilated cardiomyopathy. Input from Dr. Nguyễn noted and appreciated, and the patient remains chest pain free and hemodynamically stable. Continue with current care as per Dr. Nguyễn. The patient will follow up with Dr. Nguyễn on an outpatient basis for likely stress test and possible catheterization. 5. SIRS syndrome, resolved. The patient remains off antimicrobials, afebrile and hemodynamically stable, and with negative blood cultures. 6. Left upper extremity ecchymosis. Etiology likely secondary to compressive hematoma as noted on upper extremity ultrasound and possible injury to brachial plexus. The patent was advised that this may take several weeks to months to fully resolve. In the interim, she was advised to maintain the upper extremity elevated and continue with compresses. 7. Hypertension. Continue with lisinopril 5 mg p.o. daily. 8. Type 2 diabetes mellitus. Fingerstick improved. Continue with glimepiride 4 mg p.o. b.i.d., metformin 500 mg p.o. b.i.d. and medium dose insulin sliding scale. 9. Prophylaxis. GI prophylaxis not indicated as the patient is eating. The patient remains on Coumadin for treatment of her PE, thus DVT prophylaxis not indicated. CODE STATUS: Full code. Jorge Nguyen MD MTDD
--- NOTE | 2017-05-08 22:10 | PN ---
DATE: 05/08/2017 SUBJECTIVE: The patient is comfortable in bed. OBJECTIVE: VITAL SIGNS: Blood pressure is 140/80, heart rate is 100. NECK: Negative JVD. LUNGS: Without rales. HEART: S1, S2. EXTREMITIES: Without edema. LABORATORY DATA: Hemoglobin is 9.9. Chemistries, glucose is 218. The INR is 2.69. IMPRESSION: 1. Status post acute pulmonary embolism. 2. Vaginal bleeding, on anticoagulation. 3. Anemia. 4. Dilated cardiomyopathy. 5. Chronic pedal edema. PLAN: Given these findings, the patient is doing much better. We will continue to monitor the hemoglobin as well as the INR. Her current medication which includes an HIRAM inhibitor for her dilated cardiomyopathy, the patient seems to be tolerating. We will arrange for an outpatient stress test next week. Florian Nguyễn MD
[2017-05-09 06:43] LABS: INR 2.79 (0.93-1.08)
[2017-05-09 07:00] LABS: ALB/GLOB RATIO 0.9 (1.1-1.8); ALKALINE PHOSPHATASE 78 U/L (38-133); ALT/SGPT 34 U/L (7-56); AST/SGOT 33 U/L (15-39); BILIRUBIN,TOTAL 0.6 mg/dL (0.2-1.3); BLOOD UREA NITROGEN 15 mg/dL (7-21); CALCIUM 8.6 mg/dL (8.4-10.5); CARBON DIOXIDE 25 mmol/L (21-33); CHLORIDE 101 mmol/L (98-107); GFR AFRICAN-AMERICAN > 60; GLUCOSE,RANDOM 193 mg/dL (70-110); POTASSIUM 4.3 mmol/L (3.6-5.0); SODIUM 134 mmol/L (132-148); TOTAL PROTEIN 6.7 g/dL (5.8-8.3)
[2017-05-09 07:14] LABS: BASO # 0.01 K/mm3 (0.0-2.0); BASO % 0.1 % (0.0-3.0); EOS # 0.3 (0.0-0.7); EOS % 3.9 % (1.5-5.0); GRAN # 5.23 (1.4-6.5); GRAN % 63.2 % (50.0-68.0); HEMATOCRIT 29.1 % (36.0-48.0); LYMPH % 24.2 % (22.0-35.0); MEAN CELL VOLUME 91.5 fl (80.0-105.0); MEAN CORPUSCULAR HEMOGLOBIN 29.9 pg (25.0-35.0); MEAN CORPUSCULAR HGB CONC 32.6 g/dl (31.0-37.0); MONO # 0.7 (0.1-0.6); MONO % 8.6 % (1.0-6.0); RED CELL DISTRIBUTION WIDTH 14.6 % (11.5-14.5); WHITE BLOOD COUNT 8.3 10^3/ul (4.5-11.0)
--- NOTE | 2017-05-09 07:22 | CP.PCM.PN ---
Subjective - Date & Time of Evaluation Date of Evaluation: 05/09/17 Time of Evaluation: 07:15 - Subjective Subjective: Surgery Progress note: Dr. Rincon Pt s/e at bedside. No acute events overnight. Pt on day #16 of hospital admission following DVT and PE, consulted for RUE hematoma. Pt is improved from yesterday and complaining only of limited lifts and cranes inspector strength and difficulty making a fist, unchanged from yesterday. She has been keeping her arm elevated while sitting in her chair. She denies any f/c, n/v, dyspnea, worsening pain or discoloration on either of her UEs. Objective - Vital Signs/Intake and Output Vital Signs (last 24 hours): Temp Pulse Resp BP Pulse Ox 98.6 F 93 H 18 105/66 98 05/08/17 16:59 05/08/17 16:59 05/08/17 16:59 05/08/17 16:59 05/08/17 16:59 Intake and Output: 05/09/17 05/09/17 06:59 18:59 Intake Total 840 Balance 840 - Medications Medications: Current Medications Docusate Sodium (Colace) 100 mg PO BID [facility] Last Admin: 05/08/17 17:37 Dose: 100 mg Ferrous Sulfate (Feosol) 324 mg PO DAILY [facility] Last Admin: 05/08/17 09:46 Dose: 324 mg Glimepiride (Amaryl) 4 mg PO BID [facility] Last Admin: 05/08/17 17:37 Dose: 4 mg Insulin Human Regular (Humulin R Med) 0 units SC ACHS [facility] PRN Reason: Protocol Last Admin: 05/08/17 21:46 Dose: Not Given Lisinopril (Zestril) 5 mg PO DAILY [facility] Last Admin: 05/08/17 09:46 Dose: 5 mg Medroxyprogesterone Acetate (Provera) 20 mg PO DAILY [facility] Last Admin: 05/08/17 09:56 Dose: 20 mg Metformin HCl (Glucophage) 500 mg PO BID [facility] Last Admin: 05/08/17 17:37 Dose: 500 mg Oxycodone/Acetaminophen (Percocet 5/325 Mg Tab) 2 tab PO Q4H PRN PRN Reason: Pain, severe (8-10) Stop: 05/11/17 08:18 Last Admin: 05/08/17 21:05 Dose: 2 tab Polyethylene Glycol (Miralax) 17 gm PO DAILY PRN PRN Reason: Constipation Warfarin Sodium (Coumadin) 4 mg PO 1800 [facility] Last Admin: 05/08/17 17:37 Dose: 4 mg - Labs Labs: 05/08/17 07:00 05/09/17 05:30 PT 30.1 Seconds (9.9-11.8) H* 05/09/17 05:30 INR 2.79 (0.93-1.08) H 05/09/17 05:30 APTT 75.8 Seconds (23.7-30.8) H* 05/05/17 10:27 - Constitutional Appears: Non-toxic, No Acute Distress - Head Exam Head Exam: ATRAUMATIC, NORMAL INSPECTION - Eye Exam Eye Exam: Normal appearance. absent: Scleral icterus - Respiratory Exam Respiratory Exam: NORMAL BREATHING PATTERN. absent: Accessory Muscle Use, Respiratory Distress - GI/Abdominal Exam GI & Abdominal Exam: Soft. absent: Distended, Tenderness - Extremities Exam Additional comments: Firm, palpable mass in L posterior axilliary fold, presumptive hematoma. LUE large area of ecchymosis. over medial aspect of upper arm and cubital fossa. L hand with 1+ pitting edema. Discoloration of skin over L hand w biliverdin hue. L hand is warm and dry. Cap refill over L hand 2 sec, L radial pulse 2+. 4 cm region of ecchymosis in R antecubital fossa. 2 sec cap refill in R hand, R radial pulse 2+. No swelling or discoloration noted over R hand. - Neurological Exam Neurological Exam: Alert, Awake, Normal Gait, Oriented x3 Additional comments: Sensation to light touch over medial and lateral hand distributions intact and equal bilaterally. 4/5 lifts and cranes inspector strength in R hand with normal ROM. 1/5 lifts and cranes inspector strength in L hand. Restricted ROM secondary to edema. - Skin Skin Exam: Dry, Intact, Warm Assessment and Plan - Assessment and Plan (Free Text) Assessment: A/P: 57 yo F with L axillary hematoma after tx with heparin for acute DVT/PE. -Continue to elevate arm. Apply warm or cold compresses as tolerated for symptom relief. -Keep L arm wrapped to improve swelling. Pt encouraged to keep fingers moving for sx relief. -OT/PT recommendations for improving functional use of L hand
[2017-05-09] MEDS: Insulin Reg-MEDIUM-Coverage SC SCH ×4 (07:45→22:03)
--- NOTE | 2017-05-09 08:00 | PN ---
DATE: 05/09/2017 SUBJECTIVE: The patient appears very comfortable at rest. She is not short of breath. PHYSICAL EXAMINATION: VITAL SIGNS: Temperature is 98.6, pulse 93, respirations 18, blood pressure 105/66. Oxygen saturation on room air is 98%. HEENT: Normocephalic, atraumatic. NECK: No JVD. CARDIOVASCULAR: Positive S1 and S2. No S3 gallop. LUNGS: Clear bilaterally. GASTROINTESTINAL: Abdomen is soft, nontender, nondistended. Bowel sounds are positive. EXTREMITIES: Mild edema is noted in both lower extremities. There is less edema in the left upper extremity. There is no cyanosis or clubbing. The calves are nontender to palpation. SKIN: Less ecchymotic changes-left upper extremity. NEUROLOGIC: Limited at the present time. IMPRESSION: 1. Bilateral pulmonary emboli. 2. Vaginal bleeding-resolved. 3. Anemia. 4. Diabetes mellitus. PLAN: The patient appears very comfortable this morning. She is not short of breath at rest. She has no chest pain. She states she is feeing much, much better overall. On physical exam, her lungs remain clear. Oxygen saturation on room air is 98%. The patient remains on Coumadin therapy. Repeat a.m. labs are pending. The INR yesterday was 2.79. Surgical input is noted. Clinical status of the patient is significantly improved. I will discuss the above with Dr. Nguyen. Rosendo Brian MD MTDDarío
[2017-05-09] MEDS: Oxycodone/Acetaminophen 5/325 mg Tab PO PRN ×2 (09:22→18:23)
--- NOTE | 2017-05-09 09:37 | PN ---
SUBJECTIVE: The patient is seen and examined at bedside on the general medical hinkle. No acute events overnight. She remains afebrile and hemodynamically stable and reports continued improvement/near resolution in her vaginal bleed. Her sole complaint this morning is that of left upper extremity discomfort, which is improved with August wrapping, and otherwise, she denies any complaints. OBJECTIVE: VITAL SIGNS: Temperature 98.6, pulse 93, blood pressure 105/66, respiratory rate 18, oxygen saturation 98% on room air. GENERAL: No apparent distress. HEENT: PERRL. EOMI. No scleral icterus. Mild conjunctival pallor is noted. NECK: No JVD. No bruits. LUNGS: Clear to auscultation. CARDIOVASCULAR: Regular rate and rhythm. Normal S1 and S2. ABDOMEN: Obese. Normoactive bowel sounds. Soft, nontender, nondistended. EXTREMITIES: Left upper extremity with mild edema and ecchymosis and in August wrapping. Bilateral lower extremities with trace edema. NEUROLOGIC: Awake, alert and oriented x3. No focal motor deficits. LABORATORY DATA: WBC 8.3 with 63% neutrophils, hemoglobin 9.5, hematocrit 29, platelets 403. Chemistry reviewed and unremarkable. INR 2.79. ASSESSMENT: The patient is a 57-year-old woman with hypertension, type 2 diabetes mellitus, and morbid obesity, who was initially admitted to the ICU, status post provoked bilateral pulmonary emboli, status post TPA and remains hospitalized for continued anticoagulation for bilateral pulmonary emboli and management of vaginal bleed which is resolving and who is likely scheduled for discharge tomorrow (05/10/2017). PLAN: 1. Bilateral pulmonary emboli, provoked. Continue with Coumadin 4 mg p.o. daily with goal INR of [address] Input from [address] Brian noted and appreciated. Input from Dr. Florian Zhang noted and appreciated, and the patient is status post IVC filter placement. 2. Vaginal bleed of unclear etiology. The patient remains on Provera 20 mg p.o. daily. She will follow up with [employer] SUPER[employer]OR upon discharge. H and H remain stable. 3. Symptomatic anemia secondary to vaginal bleed of unclear etiology, resolved. Continue with care as per #2. 4. Dilated cardiomyopathy. Input from Dr. Nguyễn noted and appreciated, and the patient remains chest pain-free and hemodynamically stable. Continue with care as per Dr. Nguyễn. Arrangements will be made for followup with Dr. Nguyễn upon discharge for stress test. 5. SIRS syndrome, resolved. 6. Left upper extremity ecchymosis, likely secondary to left axillary hematoma. Continue with August wrapping and extremity elevation. 7. Hypertension. Continue with lisinopril 5 mg p.o. daily. 8. Type 2 diabetes mellitus. Continue with glimepiride 4 mg p.o. daily and metformin 500 mg p.o. b.i.d. along with medium dose insulin sliding scale. 9. Prophylaxis. GI prophylaxis is not indicated as the patient is eating. The patient remains on Coumadin for treatment of her PE, thus DVT prophylaxis not indicated. CODE STATUS: Full code. Jorge Nguyen MD
--- NOTE | 2017-05-09 16:46 | PN ---
DATE: 05/09/2017 SUBJECTIVE: The patient is comfortable, sitting in a chair. OBJECTIVE: VITAL SIGNS: Blood pressure is 120/80, heart rate is in the 90s. NECK: Negative JVD. LUNGS: Without rales. HEART: S1, S2. EXTREMITIES: Without edema. LABORATORY DATA: Hemoglobin is stable at 9.5. Chemistries, glucose is 193. IMPRESSION: 1. Acute pulmonary embolism. 2. Dilated cardiomyopathy. 3. Diabetes mellitus. 4. Obesity. 5. Vaginal bleeding. Given these findings, the anemia is stable. Her INR is therapeutic. The patient is scheduled for an outpatient stress test in 1 week. Florian Nguyễn MD
[2017-05-10] MEDS: Oxycodone/Acetaminophen 5/325 mg Tab PO PRN (00:26)
--- NOTE | 2017-05-10 01:39 | PN ---
DATE: 05/09/2017 This is the patient's hospital visit on the medical floor. For Dr. Roach. SUBJECTIVE: The patient is a 57-year-old female seen sitting up in a chair with family, the relatives at the bedside with vaginal bleeding off and on. Left upper extremity edema with discoloration persisting with the patient denying pain there, however, at this visit. She reports that she may be going home tomorrow with her INR therapeutic at 2.79. She is noted to have suffered from bilateral pulmonary emboli along with dilated cardiomyopathy with transfusions being given. She is otherwise in no acute distress in this visit. PHYSICAL EXAMINATION: VITAL SIGNS: Temperature 98.5, pulse 92, respirations 19, blood pressure 123/74, pulse ox 98%. HEENT: Unremarkable. NECK: Supple. HEART: Regular rate. LUNGS: Clear. ABDOMEN: Obese, soft, and nontender. EXTREMITIES: +1 edema with ecchymotic changes, the left upper extremity discolored. NEUROLOGIC: Awake, alert, and oriented. SKIN: Otherwise warm, dry, and clear, except as above. LABORATORY DATA: The patient's labs were done. White blood cell count of 8.3, hemoglobin 9.5, hematocrit 29.1, platelet count of 403,000 with a chem metabolic panel within normal limits except for a non-fasting glucose of 201. Her INR today is 2.79. The patient has been transfused a total of 5 units of packed red blood cells since age 16 or 17. ASSESSMENT: The assessment for this patient is that of bilateral pulmonary emboli on anticoagulation, vaginal bleeding, symptomatic anemia, dilated cardiomyopathy, systemic inflammatory response syndrome, left upper extremity discoloration, ecchymosis, hypertension, diabetes, obesity, and deconditioning. PLAN: To continue present medical regimen, to be sent home on Coumadin with followup with Dr. Roach in 1 week's time or earlier with labs to be drawn as said, reviewed upon return as indicated. Rikki Regalado MD
[2017-05-10 07:01] LABS: INR 2.43 (0.93-1.08)
[2017-05-10 07:03] LABS: BASO # 0.02 K/mm3 (0.0-2.0); BASO % 0.2 % (0.0-3.0); EOS # 0.4 (0.0-0.7); EOS % 4.2 % (1.5-5.0); GRAN # 4.84 (1.4-6.5); GRAN % 57.4 % (50.0-68.0); LYMPH # 2.6 (1.2-3.4); LYMPH % 30.6 % (22.0-35.0); MEAN CELL VOLUME 91.8 fl (80.0-105.0); MEAN CORPUSCULAR HEMOGLOBIN 29.7 pg (25.0-35.0); MEAN CORPUSCULAR HGB CONC 32.4 g/dl (31.0-37.0); MEAN PLATELET VOLUME 8.9 fl (7.0-11.0); MONO # 0.6 (0.1-0.6); MONO % 7.6 % (1.0-6.0); RED CELL DISTRIBUTION WIDTH 14.7 % (11.5-14.5); WHITE BLOOD COUNT 8.4 10^3/ul (4.5-11.0)
[2017-05-10 07:13] LABS: ALB/GLOB RATIO 0.9 (1.1-1.8); ALKALINE PHOSPHATASE 76 U/L (38-133); ALT/SGPT 35 U/L (7-56); AST/SGOT 35 U/L (15-39); BILIRUBIN,TOTAL 0.5 mg/dL (0.2-1.3); BLOOD UREA NITROGEN 19 mg/dL (7-21); CALCIUM 8.7 mg/dL (8.4-10.5); CARBON DIOXIDE 24 mmol/L (21-33); CHLORIDE 102 mmol/L (98-107); GFR AFRICAN-AMERICAN > 60; GLUCOSE,RANDOM 209 mg/dL (70-110); POTASSIUM 4.2 mmol/L (3.6-5.0); SODIUM 134 mmol/L (132-148); TOTAL PROTEIN 6.7 g/dL (5.8-8.3)
[2017-05-10] MEDS: Insulin Reg-MEDIUM-Coverage SC SCH (08:18)
[2017-05-10 08:56] VITALS: PULSE 86; RESP 20; TEMP 98.1; O2SAT 99
[2017-05-10 09:30] VITALS: BP 118/69
--- NOTE | 2017-05-10 09:50 | PN ---
DATE: 05/10/2017 SUBJECTIVE: The patient appears very comfortable this morning. She is not short of breath at rest. PHYSICAL EXAMINATION VITAL SIGNS: Temperature 98.5, pulse this morning is approximately 80, respirations 18, blood pressure 123/74. oxygen saturation on room air is 98%. HEENT: Normocephalic and atraumatic. NECK: No JVD. CARDIOVASCULAR: Positive S1 and S2. No S3 gallop. LUNGS: Clear bilaterally. EXTREMITIES: Mild edema is noted in both lower extremities. There is less edema noted in the left upper extremity. There is no cyanosis or clubbing. The calves are nontender to palpation. GASTROINTESTINAL: Abdomen is soft and nontender, nondistended. Bowel sounds are positive. SKIN: Less ecchymotic changes - left upper extremity. NEUROLOGIC: Limited at the present time. IMPRESSION: 1. Bilateral pulmonary emboli. 2. Vaginal bleeding - resolved. 3. Anemia. 4. Diabetes mellitus. PLAN: The patient appears very comfortable this morning. She is not short of breath at rest. She has no chest pain. She states she is feeling much much better overall. On physical exam, her lungs remain clear. Oxygen saturation on room air is 98%. The patient remains on Coumadin therapy. INR yesterday was 2.79. Repeat a.m. labs are pending. Inputs by cardiology and surgery are noted. Clinical status of the patient is significantly improved. I will discuss the above with Dr. Nguyen. Rosendo Brian MD MTDD
--- NOTE | 2017-05-10 10:28 | CP.PCM.PN ---
<Leon Francisco - Last Filed: 05/10/17 10:22> Subjective - Date & Time of Evaluation Date of Evaluation: 05/10/17 Time of Evaluation: 07:00 - Subjective Subjective: Heme/onc note for Dr Roach: Pt seen and examined at bedside. No acute events overnight. States that her LUE swelling is getting better. Vaginal bleeding less. No f/c, n/v/d, sob, cp, palpitations, urinary or bm changes. Objective - Vital Signs/Intake and Output Vital Signs (last 24 hours): Temp Pulse Resp BP Pulse Ox 98.1 F 86 20 118/69 99 05/10/17 08:53 05/10/17 09:27 05/10/17 08:53 05/10/17 09:27 05/10/17 08:53 Intake and Output: 05/10/17 05/10/17 06:59 18:59 Intake Total 670 Balance 670 - Medications Medications: Current Medications Docusate Sodium (Colace) 100 mg PO BID [facility] Last Admin: 05/10/17 09:27 Dose: 100 mg Ferrous Sulfate (Feosol) 324 mg PO DAILY [facility] Last Admin: 05/10/17 09:27 Dose: 324 mg Glimepiride (Amaryl) 4 mg PO BID [facility] Last Admin: 05/10/17 09:27 Dose: 4 mg Insulin Human Regular (Humulin R Med) 0 units SC [facility] PRN Reason: Protocol Last Admin: 05/10/17 08:18 Dose: 3 units Lisinopril (Zestril) 5 mg PO DAILY [facility] Last Admin: 05/10/17 09:27 Dose: 5 mg Medroxyprogesterone Acetate (Provera) 20 mg PO DAILY [facility] Last Admin: 05/10/17 09:26 Dose: 20 mg Metformin HCl (Glucophage) 500 mg PO BID [facility] Last Admin: 05/09/17 18:15 Dose: 500 mg Oxycodone/Acetaminophen (Percocet 5/325 Mg Tab) 2 tab PO Q4H PRN PRN Reason: Pain, severe (8-10) Stop: 05/11/17 08:18 Last Admin: 05/10/17 00:26 Dose: 2 tab Polyethylene Glycol (Miralax) 17 gm PO DAILY PRN PRN Reason: Constipation Warfarin Sodium (Coumadin) 4 mg PO 1800 [facility] Last Admin: 05/09/17 18:15 Dose: 4 mg - Labs Labs: 05/10/17 06:30 05/10/17 06:30 PT 26.2 Seconds (9.9-11.8) H 05/10/17 06:30 INR 2.43 (0.93-1.08) H 05/10/17 06:30 APTT 75.8 Seconds (23.7-30.8) H* 05/05/17 10:27 - Constitutional Appears: No Acute Distress - Head Exam Head Exam: ATRAUMATIC, NORMAL INSPECTION, NORMOCEPHALIC - Eye Exam Eye Exam: EOMI, Normal appearance, PERRL - ENT Exam ENT Exam: Mucous Membranes Moist - Cardiovascular Exam Cardiovascular Exam: REGULAR RHYTHM, +S1, +S2. absent: Murmur - GI/Abdominal Exam GI & Abdominal Exam: Soft. absent: Tenderness - Extremities Exam Extremities Exam: absent: Calf Tenderness, Pedal Edema - Neurological Exam Neurological Exam: Alert, Awake, Oriented x3 - Skin Skin Exam: Dry, Intact, Normal Color, Warm Assessment and Plan - Assessment and Plan (Free Text) Assessment: 57 F presented to the ED with complaint of acute onset shortness of breath found to have massive PE and TPA was administered, currently on heparin drip. Pt is also have some vaginal bleeding; transvaginal US showed endometrial thickening; OBGYN recommended outpatient endometrial biopsy. Pt also developed a L upper extremity swelling - US of upper extremity was negative for DVT and CT of upper ext showed soft tissue swelling. s/p IVC filter placement. Currently on Coumadin. To follow up with OBGYN for endometrial bx and hysteroscopy (elevated CA-125) as an outpatient once more stable. On Coumadin 4mg daily and therapeutic. - Coumadin 4 mg - this morning INR is therapeutic at 2.43 this am - IR and vasc surg consulted for recs appreciated - f/u LUE venous US was negative for DVT but showed a hematoma in the axilla - Occupational therapy ordered - Diagnostic Mammo BIRADS 2 benign finding cont annual screening mammo - Breast US - BIRADS 1 negative cont annual screening - F/u Ca125 elevated 182 - should be f/u as an outpatient for hysteroscopy and bx - f/u HE4 - No Jak2 Mutation detected, Homocysteine neg, factor 5 mutation not detected, antithrombin neg, Protein C wnl, Protein S elevated. - Fibrinogen elevated 660 , Fact 8 activity 246 elevated, Lipoprotein A - Hexagonal phase confirm positive, Lupus anticoag indeterminate - F/u hypercoagubility work up - RF 12, CHATO negative - F/u STATE INSPECTOR recs - on Progesterone - Plm recs - V/Q scan in 6 weeks Case and plan was reviewed an discussed in detail with Dr Roach. <Theresa Roach P - Last Filed: 05/11/17 23:22> Objective - Vital Signs/Intake and Output Vital Signs (last 24 hours): Temp Pulse Resp BP Pulse Ox 98.1 F 86 20 118/69 99 05/10/17 08:53 05/10/17 09:27 05/10/17 08:53 05/10/17 09:27 05/10/17 08:53 - Labs Labs: 05/10/17 06:30 05/10/17 06:30 PT 26.2 Seconds (9.9-11.8) H 05/10/17 06:30 INR 2.43 (0.93-1.08) H 05/10/17 06:30 APTT 75.8 Seconds (23.7-30.8) H* 05/05/17 10:27 Attending/Attestation - Attestation I have personally seen and examined this patient.: Yes I have fully participated in the care of the patient.: Yes I have reviewed all pertinent clinical information, including history, physical exam and plan: Yes
--- NOTE | 2017-05-10 11:15 | PN ---
DATE: 05/10/2017 CARDIOLOGY FOLLOWUP SUBJECTIVE: The patient is comfortable, awake and alert. PHYSICAL EXAMINATION: VITAL SIGNS: Blood pressure is 118/70 and the heart rate is in the 80s. NECK: Negative JVD. LUNGS: Without rales. HEART: With S1 and S2. EXTREMITIES: Without change from a chronic edema. LABORATORY DATA: The INR is 2.4. Chemistries; glucose is 209. IMPRESSION: 1. Status post acute pulmonary embolism. 2. Her anemia with stable hemoglobin, on therapeutic INR. 3. Dilated cardiomyopathy. 4. Diabetes mellitus. Given these findings, the patient is hemodynamically stable with no evidence for active bleeding. From a cardiac perspective, the patient is stable. She has an outpatient stress test to rule out coronary artery disease as a cause of her dilated cardiomyopathy, which is scheduled for next week as an outpatient. Florian Nguyễn MD
--- NOTE | 2017-05-10 11:36 | CP.PCM.PN ---
Subjective - Date & Time of Evaluation Date of Evaluation: 05/10/17 Time of Evaluation: 09:30 - Subjective Subjective: Patient is feeling better, no fevers, much improved pain and swelling of the left arm. Objective - Vital Signs/Intake and Output Vital Signs (last 24 hours): Temp Pulse Resp BP Pulse Ox 98.5 F 92 H 19 123/74 98 05/09/17 16:00 05/09/17 16:00 05/09/17 16:00 05/09/17 16:00 05/09/17 16:00 Intake and Output: 05/09/17 05/10/17 18:59 06:59 Intake Total 960 670 Balance 960 670 - Medications Medications: Current Medications Docusate Sodium (Colace) 100 mg PO BID [facility] Last Admin: 05/09/17 18:15 Dose: Not Given Ferrous Sulfate (Feosol) 324 mg PO DAILY [facility] Last Admin: 05/09/17 09:13 Dose: 324 mg Glimepiride (Amaryl) 4 mg PO BID [facility] Last Admin: 05/09/17 18:15 Dose: 4 mg Insulin Human Regular (Humulin R Med) 0 units SC [facility] PRN Reason: Protocol Last Admin: 05/09/17 22:03 Dose: Not Given Lisinopril (Zestril) 5 mg PO DAILY [facility] Last Admin: 05/09/17 09:14 Dose: 5 mg Medroxyprogesterone Acetate (Provera) 20 mg PO DAILY [facility] Last Admin: 05/09/17 09:11 Dose: 20 mg Metformin HCl (Glucophage) 500 mg PO BID [facility] Last Admin: 05/09/17 18:15 Dose: 500 mg Oxycodone/Acetaminophen (Percocet 5/325 Mg Tab) 2 tab PO Q4H PRN PRN Reason: Pain, severe (8-10) Stop: 05/11/17 08:18 Last Admin: 05/10/17 00:26 Dose: 2 tab Polyethylene Glycol (Miralax) 17 gm PO DAILY PRN PRN Reason: Constipation Warfarin Sodium (Coumadin) 4 mg PO 1800 [facility] Last Admin: 05/09/17 18:15 Dose: 4 mg - Labs Labs: 05/09/17 05:30 05/09/17 05:30 PT 30.1 Seconds (9.9-11.8) H* 05/09/17 05:30 INR 2.79 (0.93-1.08) H 05/09/17 05:30 APTT 75.8 Seconds (23.7-30.8) H* 05/05/17 10:27 - Constitutional Appears: Non-toxic, No Acute Distress - Head Exam Head Exam: NORMAL INSPECTION - ENT Exam ENT Exam: Mucous Membranes Moist - Neck Exam Neck Exam: absent: Lymphadenopathy, Meningismus - Respiratory Exam Respiratory Exam: Decreased Breath Sounds - Cardiovascular Exam Cardiovascular Exam: +S1, +S2 - GI/Abdominal Exam GI & Abdominal Exam: Soft. absent: Tenderness - Extremities Exam Additional comments: left upper arm with decreased swelling and ecchymoses have been fading Assessment and Plan - Assessment and Plan (Free Text) Plan: Assessment S/P Systemic Inflammatory response syndrome, consider reactive in relation to probable hematoma on the left arm; no source of sepsis identified acute pulmonary embolism, on anticoagulation vaginal bleeding, etiology to be determined HTN DM morbid obesity with BMI 44 Plan continue to monitor off antibiotics since she is at risk for infection while she is in the hospital reviewed CT scan of the left arm which does not show fluid collection
--- NOTE | 2017-05-10 13:32 | PN ---
DAILY PROGRESS NOTE DATE: SUBJECTIVE: The patient is seen and examined at bedside on the general medical hinkle. No acute events overnight. She remains afebrile and hemodynamically stable and reports no further episodes of vaginal bleed. She also reports some improvement in her left upper extremity since placement of August wrapping and this morning, she states she overall feels okay and is ready to be discharged to home. OBJECTIVE: VITAL SIGNS: Temperature 98.5, pulse 92, blood pressure 123/74, respiratory rate 19, oxygen saturation 98% on room air. GENERAL: No apparent distress. HEENT: PERRL. EOMI. No scleral icterus. Mild conjunctival pallor is noted. NECK: No JVD. No bruits. LUNGS: Clear to auscultation. CARDIOVASCULAR: Regular rate and rhythm. Normal S1 and S2. ABDOMEN: Obese. Normoactive bowel sounds. Soft, nontender, nondistended. EXTREMITIES: Left upper extremity with mild edema and ecchymosis. Bilateral lower extremities without edema. NEUROLOGIC: Awake, alert, and oriented x3. No focal motor deficits. LABORATORY DATA: WBC 8.4, hemoglobin 9.4, hematocrit 29, platelets 411. Chemistry reviewed and unremarkable. INR 2.43. ASSESSMENT: The patient is a 57-year-old woman with hypertension, type 2 diabetes mellitus, and morbid obesity, who was initially admitted to the ICU, status post provoked bilateral pulmonary emboli, status post TPA who is subsequently transferred to the general medical hinkle for continued management of bilateral pulmonary emboli and vaginal bleed, who is now stable for discharge to home. PLAN: 1. Bilateral pulmonary emboli, provoked. The patient remains on Coumadin 4 mg p.o. daily with a therapeutic INR of 2.43 (goal INR 2 to 3). The patient will require at least 6 months of anticoagulation. We will repeat V/Q scan on an outpatient basis in approximately 6 to 8 weeks. Of note, the patient is also status post an IVC filter placement by Dr. Florian Zhang. 2. Vaginal bleed of unclear etiology, resolved. The patient will follow up with [facility] upon discharge. 3. Symptomatic anemia secondary to vaginal bleed of unclear etiology, resolved. As above, the patient will follow up with [facility] upon discharge. 4. Dilated cardiomyopathy. The patient remains hemodynamically stable and chest pain-free. Arrangements will be made for followup with Dr. Nguyễn upon discharge for further evaluation. 5. SIRS syndrome, resolved. 6. Left upper extremity ecchymosis secondary to left axillary hematoma, resolving. The patient was encouraged to maintain the extremity elevated and to continue with August wrapping upon discharge. 7. Hypertension, blood pressure controlled. Continue with lisinopril 5 mg p.o. daily. 8. Type 2 diabetes mellitus. The patient will be discharged on glimepiride 4 mg p.o. daily and metformin 850 mg p.o. b.i.d. 9. Prophylaxis. GI prophylaxis is not indicated as the patient is eating. DVT prophylaxis not indicated as the patient remains on Coumadin for treatment of her PE. 10. Disposition. The patient for discharged to home today. CODE STATUS: FULL CODE. Jorge Nguyen MD
--- NOTE | 2017-05-16 01:48 | DS ---
ADMITTING DIAGNOSIS: Bilateral pulmonary emboli (provoked). DISCHARGE DIAGNOSIS: Bilateral pulmonary emboli (provoked). SECONDARY DIAGNOSES: Vaginal bleed of unclear etiology, symptomatic anemia secondary to vaginal bleed, dilated cardiomyopathy, SIRS syndrome, hypertension , type 2 diabetes mellitus, anxiety disorder, obesity and left upper extremity hematoma. CONSULTATIONS: Dr. Gambino (infectious disease), Dr. Roach (hematology/ oncology), Dr. Brian (pulmonary and critical care medicine), Dr. Rincon ( general surgery), Dr. Mcgarry ([facility]), Dr. Zhang (interventional radiology) IMAGING STUDIES: CT of the chest with IV contrast which demonstrated extensive bilateral pulmonary emboli. HISTORY OF PRESENT ILLNESS: The patient is a 57-year-old woman with hypertension, type 2 diabetes mellitus, anxiety disorder and morbind obesity who presented to [facility] Emergency Department for evaluation of a several day history of worsening dyspnea and lower extremity edema. The patient states that she was in her usual state of health until approximately 2 days prior to presentation to the ED when she developed the aforementioned symptoms. The patient states that she was on a long road trip (approximately 14 hrs) when she developed mild lower extremity edema. She subsequently developed increasing posterior calf pain and shortness of breath. Upon arrival to the ED she was noted to be hypotensive with a systolic blood pressure in the 70s, tachypneic and hypoxic. Imaging studies which were obtained demonstrated extensive bilateral pulmonary emboli. Given her hemodynamic instability, the patient was assessed by the ICU team and was administered tPA. She was then admitted to the MICU for continued management of bilateral pulmonary emboli. HOSPITAL COURSE: Upon admission to the ICU she was started on a heparin drip for continued anticoagulation. Approximately 12 hours after admission to the MICU she was noted to develop vaginal bleed with an acute drop in hemoglobin from 11 to 7.6. The patient required multiple transfusions of PRBCs due to her vaginal bleed. She was evaluated by [facility] and underwent a transvaginal ultrasound which demonstrated endometrial thickening. Given the extent of her bilateral PE there was hesitance to discontinue her heparin drip. After several days of persistent bleed and multiple transfusions [facility] then recommended administration of Provera 20 mg p.o. daily. In the event that the anticoagulation therapy would need to be discontinued arrangements were made with Dr. Florian Zhang of interventional radiology to pursue placement of an IVC filter which was done successfully. After approximately 3-4 days on the Provera the patient was finally noted to have gradual improvement in her vaginal bleed to the point of cessation. Her hemoglobin remained stable in the 9.3 to 9.9 range and she no longer required transfusions. At this point in time she was started on Coumadin 5 mg p.o. daily while remaining on the heparin drip for bridging. After 72 hrs her INR was noted to be therapeutic (goal INR 2 -3). At this point in time she was deemed stable for discharge to home. CONDITION: Good, improved. DISPOSITION: To home. DISCHARGE MEDICATIONS: Coumadin 4 mg p.o. daily, Metformin 850 mg p.o. b.i.d., Glimepiride 4 mg p.o. b.i.d. and Lisinopril 5 mg p.o. daily. DISCHARGE INSTRUCTIONS: The patient was advised that if she has any recurrence of her symptoms or any development of hemoptysis, vaginal bleed, dyspnea, chest pain or palpitations to present to the nearest emergency department or her PMD immediately. FOLLOWUP: The patient will follow up with her PMD within one week of discharge so as to repeat an INR and adjust her Coumadin dose as needed. The patient to followup with Dr. Nguyễn of cardiology to pursue a stress test to further evaluate her dilated cardiomyopathy and the patient will follow up with [facility] as scheduled. Jorge Nguyen MD MTDDarío
== END 2017-05-10 13:17 | disposition home or self-care (01) | DRG 166 ==
LOC: ED 05:21 → ERH 09:14 → CCU 11:13 → 2RNO 04-25 18:47 → 3RSO 05-07 13:29
PROVIDERS: ADMIT Student in an Organized Health Care Education/Training Program; ATTEND Student in an Organized Health Care Education/Training Program
PROC: 3E03317 Introduction of Other Thrombolytic into Peripheral Vein, Percutaneous Approach (ICD-10-PCS; 2017-04-23)
PROC: 30233N1 Transfusion of Nonautologous Red Blood Cells into Peripheral Vein, Percutaneous Approach (ICD-10-PCS; 2017-04-29)
PROC: 06H03DZ Insertion of Intraluminal Device into Inferior Vena Cava, Percutaneous Approach (ICD-10-PCS; principal; 2017-05-01)
DX: I26.99 Other pulmonary embolism without acute cor pulmonale (principal); E13.10 Other specified diabetes mellitus with ketoacidosis without coma; R57.9 Shock, unspecified; I47.2 Ventricular tachycardia; I11.0 Hypertensive heart disease with heart failure; R65.10 Systemic inflammatory response syndrome (SIRS) of non-infectious origin without acute organ dysfunction; D68.59 Other primary thrombophilia; I42.0 Dilated cardiomyopathy; I50.9 Heart failure, unspecified; Z68.41 Body mass index [BMI] 40.0-44.9, adult; E66.01 Morbid (severe) obesity due to excess calories; N95.9 Unspecified menopausal and perimenopausal disorder; N93.9 Abnormal uterine and vaginal bleeding, unspecified; D64.9 Anemia, unspecified; K59.00 Constipation, unspecified; F41.9 Anxiety disorder, unspecified; Z79.01 Long term (current) use of anticoagulants; Z80.3 Family history of malignant neoplasm of breast; Z82.49 Family history of ischemic heart disease and other diseases of the circulatory system

== ENCOUNTER 2017-10-19 06:28 | Day surgery (SDC) | payer BC ==
[2017-10-17 10:46] VITALS: BMI 47.0
[2017-10-19 06:56] LABS: BASO # 0.02 K/mm3 (0.0-2.0); BASO % 0.3 % (0.0-3.0); EOS # 0.1 (0.0-0.7); EOS % 1.7 % (1.5-5.0); GRAN # 4.87 (1.4-6.5); GRAN % 69.6 % (50.0-68.0); HEMOGLOBIN 11.4 g/dL (12.0-16.0); LYMPH # 1.3 (1.2-3.4); LYMPH % 18.5 % (22.0-35.0); MEAN CELL VOLUME 88.1 fl (80.0-105.0); MEAN CORPUSCULAR HEMOGLOBIN 28.2 pg (25.0-35.0); MEAN PLATELET VOLUME 9.4 fl (7.0-11.0); MONO # 0.7 (0.1-0.6); MONO % 9.9 % (1.0-6.0); RBC 4.04 10^6/uL (3.5-6.1); RED CELL DISTRIBUTION WIDTH 16.3 % (11.5-14.5)
[2017-10-19 07:12] LABS: BLOOD UREA NITROGEN 18 mg/dL (7-21); CALCIUM 8.9 mg/dL (8.4-10.5); GFR AFRICAN-AMERICAN > 60; GFR NON-AFRICAN AMERICAN > 60
[2017-10-19 07:28] LABS: INR 2.95 (0.93-1.08); PARTIAL THROMBOPLASTIN TIME 35.9 Seconds (25.1-36.5); PROTHROMBIN TIME 34.7 SECONDS (9.4-12.5)
[2017-10-19] MEDS ORDERED: Iodixanol 320 MG/ML 200 ML BOTTLE IV ONE (08:32)
[2017-10-19] MEDS ORDERED: Lidocaine 2% Inj (20ml) ONE (08:32)
[2017-10-19] MEDS ORDERED: Iohexol 350mgl/ml 50 ML ONE (08:32)
[2017-10-19] MEDS ORDERED: Phenylephrine 10 mg/ml Inj ONE (08:32)
[2017-10-19] MEDS ORDERED: HEPARIN SODIUM/NS 2,000 ML IV ONE (08:33)
[2017-10-19] MEDS ORDERED: Midazolam 2 MG/2 ML VIAL ONE ×2 (08:53→09:20)
[2017-10-19] MEDS ORDERED: Iodixanol 320 MG/ML 100 ML BOTTLE IV ONE (09:17)
[2017-10-19] MEDS ORDERED: Naloxone 0.4 mg/ml Inj (Adult) ONE (09:27)
[2017-10-19] MEDS ORDERED: Flumazenil 0.1 mg/ml Inj (5ml) IVP ONE (09:28)
[2017-10-19 10:15] VITALS: TEMP 97.9
[2017-10-19 10:46] VITALS: RESP 20
[2017-10-19 12:22] VITALS: O2SAT 93
[2017-10-19 14:40] VITALS: BP 149/85; PULSE 110
--- NOTE | 2017-10-19 16:09 | CARD ---
APPROVED REPORT EKG Measurement Heart [id number] <Conclusion> Normal sinus rhythm Nonspecific intraventricular block Possible Lateral infarct, age undetermined Abnormal ECG
--- NOTE | 2017-10-19 20:56 | CARDCATH ---
PROCEDURE DATE: 10/19/2017 HISTORY: The patient is a 57-year-old woman who presents with an abnormal stress test. She complains of dyspnea as well as chest pain. Her stress test was abnormal. The patient's past medical history is notable for a documented bilateral pulmonary embolism, in which she has been treated on Coumadin for the past 6 months. Because of her symptoms as well as abnormal stress test, cardiac catheterization was recommended. PROCEDURE: Left heart catheterization with coronary arteriography, left ventriculogram and supra-aortic valvular injection were performed. There were no complications. I performed moderate sedation, which included the presence of an independent trained observer that assisted in monitoring the patient's level of consciousness and physiologic status. After administration of Versed and fentanyl, my intra-service time was 15 minutes. Findings on catheterization revealed a left ventricle that was markedly dilated and diffusely hypokinetic. Estimated ejection fraction is 20%. Supra-aortic valvular injection revealed 1+ aortic insufficiency. Her coronary anatomy revealed a right dominant circulation. The RCA revealed intimal irregularities without significant stenosis. The left main artery is unremarkable. The LAD and diagonal vessels revealed intimal irregularities without critical lesions. The first diagonal vessel revealed a 70% stenosis in its proximal portion. The circumflex artery and obtuse marginal branches were free of significant disease. Angio-Seal was used to close the femoral artery site. The patient tolerated the procedure well. In summary, the procedure revealed a markedly dilated cardiomyopathy with single vessel CAD with a 70% stenosis in the proximal portion of the diagonal vessel. Given these findings, we will place the patient back on her medical therapy. Coumadin will be restarted. In addition, we will restart the patient back on her HIRAM inhibitor as well as diuretics. Florian Nguyễn MD
== END 2017-10-19 17:00 | disposition home or self-care (01) ==
LOC: CATH 06:28
PROVIDERS: ATTEND Internal Medicine Cardiovascular Disease
DX: I35.1 Nonrheumatic aortic (valve) insufficiency (principal); I42.0 Dilated cardiomyopathy; I25.110 Atherosclerotic heart disease of native coronary artery with unstable angina pectoris; E78.00 Pure hypercholesterolemia, unspecified; R94.39 Abnormal result of other cardiovascular function study; Z86.711 Personal history of pulmonary embolism; Z79.01 Long term (current) use of anticoagulants; E66.9 Obesity, unspecified; Z68.42 Body mass index [BMI] 45.0-49.9, adult
CPT/HCPCS: 36415; 80048; 85025; 85610; 85730; 86850; 86900; 93005; 93458; 99152; 99153; C1760; C1769; C1887; C2629; J1644; J1940; J2250; J2310; J3010; J7030; Q9967

== ENCOUNTER 2017-11-27 09:55 | Inpatient (IN) | payer BC ==
--- NOTE | 2017-11-27 10:04 | ED PDOC ---
Arrival/HPI - General Time Seen by Provider: 11/27/17 09:56 Historian: Patient - History of Present Illness Narrative History of Present Illness (Text): 11/27/17 10:01 57yo female with PMHx of COPD, diabetes, CHF and Pulmonary embolism referred to ED by Dr. Hassan for nonhealing wound x weeks. Patient notes that she was on Augmentin for 2weeks without relieve. Report pain to the are of the abdominal wound. States she was seen this morning by Dr. Hassan and was referred to the ED after wound care. She denies fever, chills, nausea, vomiting, chest pain, any other complaint. Past Medical History - Provider Review Nursing Documentation Reviewed: Yes - Cardiac Hx Pacemaker: No - Pulmonary Hx Respiratory Disorders: Yes (PULMONARY EMBOLISM 04-23-17) - Neurological Hx Paralysis: No - HEENT Hx HEENT Disorder: Yes (STRABISMUS WITH SX.) - Endocrine/Metabolic Hx Diabetes Mellitus Type 2: Yes - Hematological/Oncological Hx Blood Transfusions: Yes (04/2017) Hx Blood Transfusion Reaction: No - Integumentary Hx Dermatological Disorder: No - Musculoskeletal/Rheumatological Hx Musculoskeletal Disorders: No - Gastrointestinal Hx Gastrointestinal Disorders: No - Genitourinary/Gynecological Hx Genitourinary Disorders: No - Psychiatric Hx Emotional Abuse: No Hx Physical Abuse: No Hx Substance Use: No - Anesthesia Hx Anesthesia Reactions: No Hx Malignant Hyperthermia: No - Suicidal Assessment Feels Threatened In Home Enviroment: No Family/Social History - Physician Review Nursing Documentation Reviewed: Yes Family/Social History: Unknown Family HX Smoking Status: Never Smoked Hx Alcohol Use: No Hx Substance Use: No Allergies/Home Meds Allergies/Adverse Reactions: Allergies No Known Allergies Allergy (Verified 11/27/17 12:12) Home Medications: Home Meds Medication Instructions Recorded Confirmed Glimepiride [amaRYL] 4 mg PO BID 04/23/17 11/27/17 Furosemide [Lasix] 20 mg PO DAILY 05/25/17 11/27/17 Alprazolam [Xanax] 0.25 mg PO PRN PRN 10/17/17 11/27/17 Enoxaparin [Lovenox] 80 mg SQ GRAHAM 10/17/17 11/27/17 Fluticasone Furoate [Arnuity 1 puff IH QAM 10/17/17 11/27/17 Ellipta] Umeclidinium Brm/Vilanterol Tr 1 puff IH QAM 10/17/17 11/27/17 [Anoro Ellipta 62.5-25 Mcg INH] Review of Systems - Physician Review All systems were reviewed & negative as marked: Yes - Review of Systems Constitutional: Normal Eyes: Normal ENT: Normal Respiratory: Normal Cardiovascular: Normal Gastrointestinal: Normal Genitourinary Female: Normal Musculoskeletal: Normal Skin: Cellulitis Neurological: Normal Endocrine: Normal Hemo/Lymphatic: Normal Psychiatric: Normal Physical Exam Vital Signs Reviewed: Yes Vital Signs Temp Pulse Resp BP Pulse Ox 11/27/17 13:29 98.0 F 82 19 122/83 99 11/27/17 13:11 85 20 122/82 96 11/27/17 11:27 86 18 123/86 98 11/27/17 10:14 98.6 F 92 H 18 125/98 H 98 11/27/17 10:13 98.6 F 92 H 18 125/98 H 98 Temperature: Afebrile Blood Pressure: Normal Pulse: Regular Respiratory Rate: Normal Appearance: Positive for: Well-Appearing, Non-Toxic, Comfortable Pain Distress: None Mental Status: Positive for: Alert and Oriented X 3 - Systems Exam Head: Present: Atraumatic, Normocephalic Pupils: Present: PERRL Extroacular Muscles: Present: EOMI Conjunctiva: Present: Normal Mouth: Present: Moist Mucous Membranes Neck: Present: Normal Range of Motion Respiratory/Chest: Present: Clear to Auscultation, Good Air Exchange. No: Respiratory Distress, Accessory Muscle Use Cardiovascular: Present: Regular Rate and Rhythm, Normal S1, S2. No: Murmurs Abdomen: Present: Normal Bowel Sounds. No: Tenderness, Distention, Peritoneal Signs Back: Present: Normal Inspection Upper Extremity: Present: Normal Inspection. No: Cyanosis, Edema Lower Extremity: Present: Normal Inspection. No: Edema Neurological: Present: GCS=15, CN II-XII Intact, Speech Normal Skin: Present: Warm, Dry, Normal Color, Erythematous (Lower abdominal skin fold with clean dressing noted in tact). No: Rashes Psychiatric: Present: Alert, Oriented x 3, Normal Insight, Normal Concentration Medical Decision Making ED Course and Treatment: 11/27/17 18:00 Pt present for stated history. she was hemodyanmically stable. Lab was reviewed , nonspecific. Culture was collected and pending. Zosyn and Vancomycin was given in ED. PT with multiple co morbidties . Failed two weeks of oral abx. She will be admitted for IV abx. EKG NSR ; LAD @ 90bpm CXR NAD Case was DW Dr. Samson and pt was admitted to his self. He requested Dr. Hassan and Dr. Gambino consult and it was placed. - Lab Interpretations Lab Results: 11/27/17 10:40 11/27/17 10:40 Lab Results 11/27/17 11:15: Urine Color Yellow, Urine Appearance Sl cloudy, Urine pH 6.0, Ur Specific Gilbert 1.020, Urine Protein Trace H, Urine Glucose (UA) Negative, Urine Ketones Negative, Urine Blood Large H, Urine Nitrate Negative, Urine Bilirubin Negative, Urine Urobilinogen 1.0 H, Ur Leukocyte Esterase Negative, Urine RBC 15 - 20, Urine WBC 0 - 2, Ur Epithelial Cells 3 - 4, Amorphous Sediment Few, Urine Bacteria Mod 11/27/17 10:40: PT 43.4 H, INR 3.67 H*, APTT 42.8 H 11/27/17 10:40: Sodium 135, Chloride 95 L, Potassium 4.4, Carbon Dioxide 31, Anion Gap 13, BUN 24 H, Creatinine 0.7, Est GFR ( Amer) > 60, Est GFR ( Non-Af Amer) > 60, Random Glucose 149 H, Calcium 9.5, Total Bilirubin 0.8, AST 34, ALT 25, Alkaline Phosphatase 165 H D, Total Protein 8.2, Albumin 3.6, Globulin 4.7, Albumin/Globulin Ratio 0.8 L 11/27/17 10:40: pO2 151 H, VBG pH 7.46 H, VBG pCO2 41.0, VBG HCO3 29.2 H, VBG Total CO2 30.5 H, VBG O2 Sat (Calc) 99.8 H, VBG Base Excess 4.9 H, VBG Potassium 4.2, Sodium 132.0, Chloride 102.0, Glucose 154 H, Lactate 1.5, FiO2 21.0, Venous Blood Potassium 4.2 11/27/17 10:40: WBC 8.5 D, RBC 4.14, Hgb 11.7 L, Hct 36.3, MCV 87.7, MCH 28.3, MCHC 32.2, RDW 16.1 H, Plt Count 422, MPV 9.4, Gran % 73.6 H, Lymph % (Auto) 13.8 L, [place] % (Auto) 10.6 H, Eos % (Auto) 1.8, Baso % (Auto) 0.2, Gran # 6.23, Lymph # (Auto) 1.2, [place] # (Auto) 0.9 H, Eos # (Auto) 0.2, Baso # (Auto) 0.02 - RAD Interpretation Radiology Orders: 11/27/17 10:42 CHEST PORTABLE [RAD] Stat - Medication Orders Current Medication Orders: Alprazolam (Xanax) 0.25 mg PO DAILY FIONA PRN Reason: Protocol Stop: 12/05/17 10:01 Carvedilol (Coreg) 3.125 mg PO BID FIONA Collagenase (Santyl) 0 gm TOP BID FIONA Enoxaparin Sodium (Lovenox) 100 mg SC Q12 FIONA Furosemide (Lasix) 40 mg PO DAILY FIONA Hydrochlorothiazide (Microzide) 12.5 mg PO DAILY FIONA Lisinopril (Zestril) 10 mg PO DAILY FIONA Phytonadione (Vitamin K Tab) 10 mg PO DAILY FIONA Last Admin: 11/27/17 15:37 Dose: 10 mg Tramadol HCl (Ultram) 50 mg PO TID PRN PRN Reason: Pain, moderate (4-7) Discontinued Medications Vancomycin HCl (Vancomycin 1gm) 1 gm in 250 mls @ 167 mls/hr IVPB STAT STA PRN Reason: Protocol Stop: 11/27/17 11:35 Last Admin: 11/27/17 12:52 Dose: 167 mls/hr eMAR Start Stop Document 11/27/17 12:52 [email or web address] (Rec: 11/27/17 12:53 [email or web address] [id number]) Intravenous Solution Start Date 11/27/17 Start Time 12:52 End Date 11/27/17 Piperacillin Sod/Tazobactam Sod (Zosyn 3.375 In Ns 100ml) 100 mls @ 200 mls/hr IVPB STAT STA PRN Reason: Protocol Stop: 11/27/17 10:35 Last Admin: 11/27/17 11:19 Dose: 200 mls/hr eMAR Start Stop Document 11/27/17 11:19 [email or web address] (Rec: 11/27/17 11:19 [email or web address] [id number]) Intravenous Solution Start Date 11/27/17 Start Time 11:19 End Date 11/27/17 Pneumococcal Polyvalent Vaccine (Pneumovax 23 Vaccine) 0.5 ml IM .ONCE ONE Stop: 11/27/17 15:18 Last Admin: 11/27/17 15:31 Dose: Immunization Registry Document 11/27/17 15:31 DSZ (Rec: 11/27/17 15:31 [id number]) Immunization Registry Consent Date 10/21/17 Silver Sulfadiazine (Silvadene 1% 25 Gm) 0 gm TP BID STA Stop: 11/27/17 13:41 Last Admin: 11/27/17 15:37 Dose: 25 gm Warfarin Sodium (Coumadin) 5 mg PO 1800 FIONA PRN Reason: Protocol Disposition/Present on Arrival - Present on Arrival Any Indicators Present on Arrival: No History of DVT/PE: No History of Uncontrolled Diabetes: No Urinary Catheter: No History Surgical Site Infection Following: None - Disposition Have Diagnosis and Disposition been Completed?: Yes Diagnosis: Cellulitis Disposition: HOSPITALIZED Disposition Time: 11:00 Patient Plan: Admission Patient Problems: Current Active Problems Problem Status Onset Cellulitis Acute Condition: FAIR
[2017-11-27] MEDS ORDERED: Piperacillin/Tazobact 3.375 gm 100 ML IVPB STA (10:06)
[2017-11-27] MEDS ORDERED: Vancomycin 1gm in NS 250ml 1 GM/250 ML BAG IVPB STA (10:06)
[2017-11-27 10:15] VITALS: BMI 43.4
[2017-11-27 10:55] LABS: VENOUS BLOOD GAS BASE EXCESS 4.9 mmol/L (0.0-2.0); VENOUS BLOOD GAS PO2 151 mm/Hg (30-55); VENOUS BLOOD PH 7.46 (7.32-7.43)
[2017-11-27 10:56] LABS: BASO # 0.02 K/mm3 (0.0-2.0); BASO % 0.2 % (0.0-3.0); EOS # 0.2 (0.0-0.7); EOS % 1.8 % (1.5-5.0); GRAN # 6.23 (1.4-6.5); GRAN % 73.6 % (50.0-68.0); HEMOGLOBIN 11.7 g/dL (12.0-16.0); LYMPH # 1.2 (1.2-3.4); LYMPH % 13.8 % (22.0-35.0); MEAN CELL VOLUME 87.7 fl (80.0-105.0); MEAN CORPUSCULAR HEMOGLOBIN 28.3 pg (25.0-35.0); MEAN CORPUSCULAR HGB CONC 32.2 g/dl (31.0-37.0); MEAN PLATELET VOLUME 9.4 fl (7.0-11.0); MONO # 0.9 (0.1-0.6); MONO % 10.6 % (1.0-6.0); RBC 4.14 10^6/uL (3.5-6.1); RED CELL DISTRIBUTION WIDTH 16.1 % (11.5-14.5); WHITE BLOOD COUNT 8.5 10^3/ul (4.5-11.0)
[2017-11-27 11:03] LABS: ALB/GLOB RATIO 0.8 (1.1-1.8); ALBUMIN 3.6 g/dL (3.0-4.8); ALT/SGPT 25 U/L (7-56); AST/SGOT 34 U/L (14-36); BLOOD UREA NITROGEN 24 mg/dL (7-21); CALCIUM 9.5 mg/dL (8.4-10.5); GFR AFRICAN-AMERICAN > 60; GFR NON-AFRICAN AMERICAN > 60
[2017-11-27 11:12] LABS: PROTHROMBIN TIME 43.4 SECONDS (9.4-12.5)
[2017-11-27 11:13] LABS: INR 3.67 (0.93-1.08); PARTIAL THROMBOPLASTIN TIME 42.8 Seconds (25.1-36.5)
[2017-11-27 11:30] LABS: URINE BILIRUBIN NEGATIVE (NEGATIVE); URINE BLOOD LARGE (NEGATIVE); URINE GLUCOSE (UA) NEGATIVE (NEGATIVE); URINE LEUKOCYTE ESTERASE NEGATIVE Leu/uL (NEGATIVE); URINE PROTEIN TRACE mg/dL (<30 mg/dL)
[2017-11-27 11:37] LABS: URINE APPEARANCE SL CLOUDY (CLEAR); URINE COLOR YELLOW (YELLOW)
[2017-11-27 11:47] LABS: URINE RBC 15 - 20 /hpf (0-2); URINE WBC 0 - 2 /hpf (0-6)
[2017-11-27 11:48] LABS: URINE AMORPHOUS SEDIMENT FEW; URINE BACTERIA MOD (NEG)
--- NOTE | 2017-11-27 12:07 | RAD ---
HISTORY: admission COMPARISON: 06/19/2017 FINDINGS: LUNGS: No active pulmonary disease. PLEURA: No significant pleural effusion identified, no pneumothorax apparent. CARDIOVASCULAR: Mild cardiomegaly OSSEOUS STRUCTURES: No significant abnormalities. VISUALIZED UPPER ABDOMEN: Normal. OTHER FINDINGS: None. IMPRESSION: No active disease.
--- NOTE | 2017-11-27 13:22 | CP.PCM.CON ---
History of Present Illness - History of Present Illness History of Present Illness: Surgery consult note for Dr. Hassan CC: non-healing abdominal wound HPI: Patient is a 57 year old female with a past medical history of CHF, PE, COPD, asthma, and diabetes. The patient presents to the ED with complaint of a non-healing abdominal wound. The patient states that she noticed both wounds located under the umbilicus on the right and left side two weeks ago. The patient saw Dr. Hassan two weeks ago and was prescribed Augmentin. Patient states that she went to see Dr. Hassan today because the wound on the left side was painful and draining blood and pus. The patient denies fevers, chill, abdominal pain, nausea or vomiting. PMH: PE, COPD, CHF, asthma, Diabetes PSH: procedure for strabismus correction Social: denies smoking Allergies: NKDA Family Hx: non-contributory Medications: MAR reviewed Review of Systems - Review of Systems All systems: reviewed and no additional remarkable complaints except (HPI) Past Patient History - Past Social History Smoking Status: Never Smoked - CARDIAC Hx Pacemaker: No - PULMONARY Hx Respiratory Disorders: Yes (PULMONARY EMBOLISM 04-23-17) - NEUROLOGICAL Hx Paralysis: No - HEENT Hx HEENT Problems: Yes (STRABISMUS WITH SX.) - RENAL Hx Chronic Kidney Disease: No - ENDOCRINE/METABOLIC Hx Diabetes Mellitus Type 2: Yes - HEMATOLOGICAL/ONCOLOGICAL Hx Blood Transfusions: Yes (04/2017) Hx Blood Transfusion Reaction: No - INTEGUMENTARY Hx Dermatological Problems: No - MUSCULOSKELETAL/RHEUMATOLOGICAL Hx Musculoskeletal Disorders: No - GASTROINTESTINAL Hx Gastrointestinal Disorders: No - GENITOURINARY/GYNECOLOGICAL Hx Genitourinary Disorders: No - PSYCHIATRIC Hx Emotional Abuse: No Hx Physical Abuse: No Hx Substance Use: No - SURGICAL HISTORY Hx Surgeries: Yes (EYE SX"LAZY EYE";) - ANESTHESIA Hx Anesthesia Reactions: No Hx Malignant Hyperthermia: No Meds Allergies/Adverse Reactions: Allergies Allergy/AdvReac Type Severity Reaction Status Date / Time No Known Allergies Allergy Verified 11/27/17 12:12 - Medications Medications: Current Medications Alprazolam (Xanax) 0.25 mg PO DAILY FIONA PRN Reason: Protocol Stop: 12/05/17 10:01 Carvedilol (Coreg) 3.125 mg PO BID FIONA Furosemide (Lasix) 40 mg PO DAILY FIONA Hydrochlorothiazide (Microzide) 12.5 mg PO DAILY FIONA Lisinopril (Zestril) 10 mg PO DAILY FIONA Warfarin Sodium (Coumadin) 5 mg PO 1800 FIONA Physical Exam - Constitutional Appears: Non-toxic, No Acute Distress - Head Exam Head Exam: ATRAUMATIC, NORMAL INSPECTION, NORMOCEPHALIC - Eye Exam Eye Exam: EOMI - ENT Exam ENT Exam: Mucous Membranes Moist - Neck Exam Neck exam: Positive for: Full Rom - Respiratory Exam Respiratory Exam: NORMAL BREATHING PATTERN. absent: Accessory Muscle Use, Respiratory Distress - Cardiovascular Exam Cardiovascular Exam: REGULAR RHYTHM - GI/Abdominal Exam Additional comments: Large pannus with diffuse cellulitis. Erythematous and warm to touch, + induration, no fluctuance, left lower pannus 5 X8cm area of necrotic tissue with minimal purulent discharge and right lower pannus 1 X2cm of necrotic tissue , no crepitus appreciated - Extremities Exam Extremities exam: Negative for: calf tenderness - Neurological Exam Neurological exam: Alert, Oriented x3 Results - Vital Signs Recent Vital Signs: Last Vital Signs Temp 98.6 F 11/27/17 10:14 Pulse 85 11/27/17 13:11 Resp 20 11/27/17 13:11 BP 122/82 11/27/17 13:11 Pulse Ox 96 11/27/17 13:11 - Labs Result Diagrams: 11/27/17 10:40 11/27/17 10:40 Assessment & Plan - Assessment and Plan (Free Text) Assessment: 57 year old female with cellulitis of pannus. Plan: Santyl BID to left lower pannus Sylvadine BID to right lower pannus IV antibiotics Will likely require surgical debridement Will discuss with attending
[2017-11-27] MEDS ORDERED: Silver Sulfadiazine 1% Cream (25 gm) TP STA (13:40)
--- NOTE | 2017-11-27 14:10 | CARD ---
APPROVED REPORT EKG Measurement Heart [id number] CT [id number] <Conclusion> Normal sinus rhythm Possible Left atrial enlargement LBBB No change
--- NOTE | 2017-11-27 14:20 | CP.PCM.PCO ---
Physician Communication Note - Physician Communication Note Physician Communication Note: OR , hold coumadin
[2017-11-27] MEDS ORDERED: Pneumococcal 23-Valent Vaccine IM ONE (15:17)
[2017-11-27] MEDS ORDERED: Influenza Vaccine 60 mcg/0.5 mL SYR (4YR UP) IM ONE (15:17)
[2017-11-27] MEDS ORDERED: Enoxaparin 40 mg Syringe SC SCH (18:00)
[2017-11-27] MEDS: Collagenase 250 Units/gm Ointment(30 gm) TOP SCH (18:45)
[2017-11-27] MEDS: Enoxaparin 100 mg Syringe SC SCH (22:04)
--- NOTE | 2017-11-28 00:25 | HP ---
HISTORY OF PRESENT ILLNESS: The patient is a 57 year old woman with a past medical history of morbid obesity and dilated cardiomyopathy (EF of 20%) who was sent to [facility] ED by Dr. Hassan for evaluation of a nonhealing stage II ulcer to her pannus. The patient has been followed closely by Dr. [facility] for treatment for cellulitis of her abdominal wall. She has failed outpatient oral antibiotics consisting of Augmentin 875 mg b.i.d. for 2 weeks. She was sent for a CT of the abdomen and pelvis which was negative for abscess or fistulization but given the failure of outpatient therapy she was advised to present to the ED for continued wound care, evaluation for IV antibiotics and possible surgical debridement. The patient reports persistent pain to her abdomen at the site of the infection and associated edema and scant purulent discharge but otherwise denies fevers, chills or rigors. On arrival to the ED she was noted to be afebrile, hemodynamically stable and with largely unremarkable laboratory studies. She received a dose of Vancomycin 1 g IV and Zosyn 3.375 g IV before being admitted for continued management of abdominal wall cellulitis. PAST MEDICAL HISTORY: As per HPI, also hypertension, NIDDM, iron-deficiency anemia secondary to dysfunctional uterine bleed, anxiety disorder and a history of provoked PE/DVT. PAST SURGICAL HISTORY: IVC filter placement. ALLERGIES: NKDA. MEDICATIONS: Coumadin 5 mg p.o. daily, Lisinopril/HCTZ 10/12.5 mg p.o. daily, Carvedilol 3.125 mg p.o. b.i.d., Lasix 40 mg p.o. daily, Xanax 0.25 mg p.o. daily. FAMILY HISTORY: Noncontributory. SOCIAL HISTORY: No history of toxic habits. REVIEW OF SYSTEMS: A 14-point review of systems is negative as per HPI. PHYSICAL EXAMINATION: VITAL SIGNS: Temperature 98.6, pulse 85, blood pressure 122/82, respiratory rate 20, oxygen saturation 98% on room air. GENERAL: Morbidly obese woman, lying in bed, in no apparent distress. HEENT: PERRL, EOMI. No scleral icterus. No conjunctival pallor. NECK: Supple with full range of motion. No JVD. LUNGS: Distant breath sounds but clear to auscultation. CARDIOVASCULAR: Regular rate and rhythm. Normal S1 and S2. ABDOMEN: Obese, normoactive bowel sounds. Stage II pressure ulcer is noted in the abdominal fold with a necrotic center and surrounding erythema and edema. EXTREMITIES: Trace bilateral lower extremity edema with chronic venous stasis changes. NEUROLOGIC: Awake, alert, and oriented x3. No focal motor deficits. LABORATORY DATA: WBC 8.5 with 74% neutrophils, hemoglobin 11.7, hematocrit 36, platelets 422. Sodium 135, potassium 4.4, chloride 95, bicarb 31, BUN 24, creatinine 0.7, glucose 149. INR 3.67. IMAGING STUDIES: 1. Chest x-ray demonstrates no active disease. 2. CT of the abdomen and pelvis with p.o. contrast demonstrates no acute intraabdominal findings. ASSESSMENT: The patient is a 57 year old woman with multiple medical comorbidities including morbid obesity who was sent to the ED for evaluation of a non healing stage II pressure ulcer to her abdominal wall, after failure of outpatient antibiotics, for consideration for IV antibiotics, continued local wound care and possible surgical debridement. PLAN: 1. Cellulitis of the abdominal wall with stage II pressure ulcer. Surgical evaluation pending for possible debridement. Dr. Gambino of [place] has been consulted for antimicrobial recommendations. Blood cultures sent in ED and pending. Continue with local wound care. 2. Morbid obesity. The patient has sought outpatient evaluation with a optical instrument assembler and aircraft detail draftsperson. Lifestyle modifications have been reinforced. 3. Dilated cardiomyopathy with an EF of 20%. She was followed with Dr. Nguyễn and underwent cardiac catheterization in 10/2017 which demonstrated non- obstructive CAD consistent with a primary cardiomyopathy. Resume Coreg 3.125 mg p.o. b.i.d., Lasix 40 mg p.o. daily, Lisinopril 10 mg p.o. daily, HCTZ 12.5 mg p.o. daily. We will hold Coumadin given supratherapeutic INR of 3.67 and in anticipation of OR. She will need repeat TTE to reassess her EF and if it remains below 35% she will need evaluation for ICD. 4. History of provoked DVT and b/l PE s/p IVC filter. The patient was diagnosed with DVT/PE in 04/2017 and initially 6 months of anticoagulation was advised but given her underlying cardiomyopathy with low EF she will require lifelong anticoagulation. 5. Hypertension. Blood pressure controlled. Continue with current medications. 6. Iron-deficiency anemia secondary to dysfunctional uterine bleed. Labs demonstrate stable H/H. Continue to monitor CBC daily and start Feosol as needed. 7. Ztk-vylotyl-zpkyqrmjw diabetes mellitus. Most recent A1c of 5.9 from 1 month ago on outpatient labs. We will continue to hold medications and encourage lifestyle modifications. Will monitor fingersticks. 8. Anxiety disorder. Resume Xanax 0.25 mg p.o. daily. 9. Prophylaxis: GI prophylaxis is not indicated as patient is eating. Continue Lovenox for DVT prophylaxis as Coumadin on hold in anticipation of OR. CODE STATUS: Full code. Jorge Nguyen MD MTDD
[2017-11-28 06:32] LABS: BASO # 0.02 K/mm3 (0.0-2.0); BASO % 0.3 % (0.0-3.0); EOS # 0.2 (0.0-0.7); EOS % 2.6 % (1.5-5.0); GRAN # 4.23 (1.4-6.5); GRAN % 64.2 % (50.0-68.0); LYMPH # 1.3 (1.2-3.4); LYMPH % 20.3 % (22.0-35.0); MEAN CORPUSCULAR HEMOGLOBIN 27.6 pg (25.0-35.0); MEAN CORPUSCULAR HGB CONC 31.7 g/dl (31.0-37.0); MONO # 0.8 (0.1-0.6); MONO % 12.6 % (1.0-6.0); RBC 3.62 10^6/uL (3.5-6.1); RED CELL DISTRIBUTION WIDTH 16.1 % (11.5-14.5); WHITE BLOOD COUNT 6.6 10^3/ul (4.5-11.0)
[2017-11-28] MEDS: Vancomycin 1gm in NS 250ml 1 GM/250 ML BAG IVPB SCH ×2 (06:38→18:46)
[2017-11-28 06:53] LABS: INR 2.32 (0.93-1.08); PROTHROMBIN TIME 27.2 SECONDS (9.4-12.5)
[2017-11-28 07:20] LABS: ALB/GLOB RATIO 0.7 (1.1-1.8); ALBUMIN 3.1 g/dL (3.0-4.8); ALT/SGPT 23 U/L (7-56); AST/SGOT 23 U/L (14-36); BLOOD UREA NITROGEN 19 mg/dL (7-21); CALCIUM 9.1 mg/dL (8.4-10.5); GFR AFRICAN-AMERICAN > 60; GFR NON-AFRICAN AMERICAN > 60
[2017-11-28] MEDS: Enoxaparin 100 mg Syringe SC SCH ×2 (09:28→21:14)
[2017-11-28] MEDS: Collagenase 250 Units/gm Ointment(30 gm) TOP SCH ×2 (09:29→17:58)
--- NOTE | 2017-11-28 10:53 | CP.PCM.PN ---
Subjective - Date & Time of Evaluation Date of Evaluation: 11/28/17 Time of Evaluation: 10:49 - Subjective Subjective: Surgery Pt s&e. NAEON. Denies F/C/N/V/D/CP/SOB. Dressing changed by surgical team. Objective - Vital Signs/Intake and Output Vital Signs (last 24 hours): Temp Pulse Resp BP Pulse Ox 99.9 F H 92 H 20 118/71 96 11/28/17 07:40 11/28/17 09:27 11/28/17 07:40 11/28/17 09:27 11/28/17 07:40 Intake and Output: 11/28/17 11/28/17 06:59 18:59 Intake Total 700 Balance 700 - Medications Medications: Current Medications Alprazolam (Xanax) 0.25 mg PO DAILY [facility] PRN Reason: Protocol Stop: 12/05/17 10:01 Last Admin: 11/28/17 09:32 Dose: Not Given Carvedilol (Coreg) 3.125 mg PO BID [facility] Last Admin: 11/28/17 09:27 Dose: 3.125 mg Collagenase (Santyl) 0 gm TOP BID [facility] Last Admin: 11/28/17 09:29 Dose: 1 appl Enoxaparin Sodium (Lovenox) 100 mg SC Q12 [facility] Last Admin: 11/28/17 09:28 Dose: 100 mg Furosemide (Lasix) 40 mg PO DAILY [facility] Last Admin: 11/28/17 09:25 Dose: 40 mg Hydrochlorothiazide (Microzide) 12.5 mg PO DAILY [facility] Last Admin: 11/28/17 09:27 Dose: 12.5 mg Vancomycin HCl (Vancomycin 1gm) 1 gm in 250 mls @ 167 mls/hr IVPB Q12H [facility] PRN Reason: Protocol Last Admin: 11/28/17 06:38 Dose: 167 mls/hr Piperacillin Sod/Tazobactam Sod (Zosyn 3.375 In Ns 100ml) 100 mls @ 200 mls/hr IVPB Q6 [facility] PRN Reason: Protocol Stop: 12/05/17 12:01 Lisinopril (Zestril) 10 mg PO DAILY [facility] Last Admin: 11/28/17 09:26 Dose: 10 mg Phytonadione (Vitamin K Tab) 10 mg PO DAILY [facility] Last Admin: 11/28/17 09:24 Dose: 10 mg Tramadol HCl (Ultram) 50 mg PO TID PRN PRN Reason: Pain, moderate (4-7) Last Admin: 11/28/17 10:31 Dose: 50 mg - Labs Labs: 11/28/17 06:15 11/28/17 06:15 PT 27.2 SECONDS (9.4-12.5) H 11/28/17 06:15 INR 2.32 (0.93-1.08) H 11/28/17 06:15 APTT 42.8 Seconds (25.1-36.5) H 11/27/17 10:40 - Constitutional Appears: No Acute Distress - Head Exam Head Exam: ATRAUMATIC, NORMAL INSPECTION, NORMOCEPHALIC - Eye Exam Eye Exam: EOMI, Normal appearance, PERRL Pupil Exam: NORMAL ACCOMODATION, PERRL - ENT Exam ENT Exam: Mucous Membranes Moist, Normal Exam - Neck Exam Neck Exam: Full ROM, Normal Inspection. absent: Lymphadenopathy - Respiratory Exam Respiratory Exam: Clear to Ausculation Bilateral, NORMAL BREATHING PATTERN - Cardiovascular Exam Cardiovascular Exam: REGULAR RHYTHM, +S1, +S2. absent: Murmur - GI/Abdominal Exam GI & Abdominal Exam: Soft, Tenderness, Normal Bowel Sounds. absent: Distended, Firm, Guarding, Rigid Additional comments: Obese, large pannus. 7x5cm escar on L pannus. 5x4 eryhtema and excoriation on R pannus. Erythema under the pannus. - Extremities Exam Extremities Exam: Full ROM, Normal Capillary Refill, Normal Inspection. absent : Joint Swelling, Pedal Edema - Back Exam Back Exam: NORMAL INSPECTION - Neurological Exam Neurological Exam: Alert, Awake, CN II-XII Intact, Normal Gait, Oriented x3 - Psychiatric Exam Psychiatric exam: Normal Affect, Normal Mood - Skin Skin Exam: Dry, Erythema, Warm. absent: Normal Color Assessment and Plan - Assessment and Plan (Free Text) Assessment: 57 year old female with cellulitis of pannus. Plan: Santyl BID to left lower pannus Sylvadine BID to right lower pannus IV antibiotics OR THurs NPO after midnight Will discuss with Dr. Hassan
[2017-11-28] MEDS: Piperacillin/Tazobact 3.375 gm 100 ML IVPB SCH ×2 (13:11→17:57)
--- NOTE | 2017-11-28 14:13 | PN ---
SUBJECTIVE: The patient was seen and examined at bedside on the general medical hinkle. No acute events overnight. She remains afebrile and hemodynamically stable. This morning she feels well overall and offers no complaints. She is pending OR debridement of necrotic tissue to her pannus as well as ID evaluation for antimicrobial therapy given cellulitis to her abdominal wall. PHYSICAL EXAMINATION VITAL SIGNS: Temperature 99.9, pulse 92, blood pressure 118/71, respiratory rate 20, oxygen saturation 96% on room air. GENERAL: Morbidly obese woman, sitting up in her chair, in no apparent distress. HEENT: PERRL. EOMI. No scleral icterus. No conjunctival pallor. NECK: Supple with full range of motion. No JVD. LUNGS: Clear to auscultation. CARDIOVASCULAR: Regular rate and rhythm. Normal S1 and S2. ABDOMEN: Obese, normoactive bowel sounds, stage II pressure ulcer with a necrotic center and surrounding erythema and edema noted to her abdominal fold. EXTREMITIES: Trace bilateral lower extremity edema with chronic venous stasis changes. NEUROLOGIC: Awake, alert and oriented x3. No focal motor deficits. LABORATORY DATA: WBC is 6.6 with 64% neutrophils, hemoglobin 10, hematocrit 31, platelets 364, 000. Chemistry reviewed and unremarkable. INR 2.32. ASSESSMENT: The patient is a 57 year old woman with multiple medical comorbidities including morbid obesity who was sent to the ED for evaluation of a nonhealing stage II pressure ulcer to her abdominal wall, after failure of outpatient antibiotics, for consideration for IV antibiotics, continued local wound care and possible surgical debridement. PLAN 1. Cellulitis of the abdominal wall with stage II pressure ulcer. Input from Dr. Hassan noted and greatly appreciated. The patient has been scheduled for OR debridement. Input from Dr. Ross of ID also appreciated. This patient has been started on Vancomycin 1 g IV q. 12 hours and Zosyn 3.375 g IV q. 6 hours. We will continue with local wound care. Continue to monitor for fever and leukocytosis. 2. Morbid obesity. Lifestyle modifications have been reinforced and the patient will follow up with a dietitian and glass furnace tender upon discharge. 3. Dilatated cardiomyopathy with an EF of 20%. The patient had a cardiac catheterization in 11/06/2017 which demonstrated a nonobstructive CAD consistent with a primary cardiomyopathy. Continue Coreg 3.125 mg p.o. b.i.d., Lasix 40 mg p.o. daily, Lisinopril 10 mg p.o. daily and HCTZ 12.5 mg p.o. daily. Coumadin on hold in anticipation of OR. She will need a repeat TTE in the near future to reassess her EF and if it remains below 35%, she will need evaluation for ICD placement. 4. History of provoked DVT and bilateral PE s/p IVC filter. The patient completed 6 months of anticoagulation therapy for her provoked DVT but given her underlying cardiomyopathy with low EF, she will require lifelong anticoagulation therapy. 5. Hypertension, blood pressure controlled. Continue with current medications. 6. Iron-deficiency anemia secondary to dysfunctional uterine bleed. Labs demonstrates stable H/H. We will continue to monitor CBC daily. The patient has declined Feosol in the past due to constipation. She will need outpatient Gynecology followup upon discharge. 7. Elb-tnjtuck-ubiktxgmv diabetes mellitus. Most recent A1c of 5.9. Continue to hold glycemic agents. We will continue to monitor fingersticks. 8. Anxiety disorder. Continue Xanax 0.25 mg p.o. daily. 9. Prophylaxis: GI prophylaxis is not indicated as the patient is eating. Continue Lovenox for DVT prophylaxis as Coumadin is on hold in anticipation of OR. CODE STATUS: Full code. Jorge Nguyen MD [facility] # [id number] ISMAEL
--- NOTE | 2017-11-28 17:17 | CP.PCM.CON ---
History of Present Illness - History of Present Illness History of Present Illness: 57 year old female with PMH of HTN, DM, morbid obesity with BMI 44 came in to [facility] complaining of continued pain and drainage from her non-healing wound on the abdomen. She has been seeing Dr. Hassan in the wound care center and was given PO Augmentin to take 2 weeks ago. The pain continues and still has drainage. She has no fever or chills, no nausea or vomiting, no chest pain, no SOB, no headache or dizziness, no diarrhea, no dysuria, no cough or colds, no sore throat. Infectious Diseases consult is requested to further evaluate and manage. Review of Systems - Review of Systems All systems: reviewed and no additional remarkable complaints except (as per HPI ) Past Patient History - Past Social History Smoking Status: Never Smoked - CARDIAC Hx Pacemaker: No - PULMONARY Hx Respiratory Disorders: Yes (PULMONARY EMBOLISM 04-23-17) - NEUROLOGICAL Hx Paralysis: No - HEENT Hx HEENT Problems: Yes (STRABISMUS WITH SX.) - RENAL Hx Chronic Kidney Disease: No - ENDOCRINE/METABOLIC Hx Diabetes Mellitus Type 2: Yes - HEMATOLOGICAL/ONCOLOGICAL Hx Blood Transfusions: Yes (04/2017) Hx Blood Transfusion Reaction: No - INTEGUMENTARY Hx Dermatological Problems: No - MUSCULOSKELETAL/RHEUMATOLOGICAL Hx Musculoskeletal Disorders: No - GASTROINTESTINAL Hx Gastrointestinal Disorders: No - GENITOURINARY/GYNECOLOGICAL Hx Genitourinary Disorders: No - PSYCHIATRIC Hx Emotional Abuse: No Hx Physical Abuse: No Hx Substance Use: No - SURGICAL HISTORY Hx Surgeries: Yes (EYE SX"LAZY EYE";) - ANESTHESIA Hx Anesthesia Reactions: No Hx Malignant Hyperthermia: No Meds Allergies/Adverse Reactions: Allergies Allergy/AdvReac Type Severity Reaction Status Date / Time No Known Allergies Allergy Verified 11/27/17 12:12 - Medications Medications: Current Medications Alprazolam (Xanax) 0.25 mg PO DAILY [facility] PRN Reason: Protocol Stop: 12/05/17 10:01 Carvedilol (Coreg) 3.125 mg PO BID [facility] Last Admin: 11/27/17 18:49 Dose: 3.125 mg Collagenase (Santyl) 0 gm TOP BID [facility] Last Admin: 11/27/17 18:45 Dose: 1 appl Enoxaparin Sodium (Lovenox) 100 mg SC Q12 [facility] Last Admin: 11/27/17 22:04 Dose: 100 mg Furosemide (Lasix) 40 mg PO DAILY [facility] Hydrochlorothiazide (Microzide) 12.5 mg PO DAILY [facility] Vancomycin HCl (Vancomycin 1gm) 1 gm in 250 mls @ 167 mls/hr IVPB Q12H [facility] PRN Reason: Protocol Piperacillin Sod/Tazobactam Sod (Zosyn 3.375 In Ns 100ml) 100 mls @ 200 mls/hr IVPB Q6 [facility] PRN Reason: Protocol Stop: 12/05/17 12:01 Lisinopril (Zestril) 10 mg PO DAILY [facility] Phytonadione (Vitamin K Tab) 10 mg PO DAILY [facility] Last Admin: 11/27/17 15:37 Dose: 10 mg Tramadol HCl (Ultram) 50 mg PO TID [facility] PRN Reason: Pain, moderate (4-7) Last Admin: 11/27/17 18:49 Dose: 50 mg Physical Exam - Constitutional Appears: Non-toxic, Chronically Ill - Head Exam Head Exam: NORMAL INSPECTION - ENT Exam ENT Exam: Mucous Membranes Moist - Neck Exam Neck exam: Negative for: Meningismus - Respiratory Exam Respiratory Exam: Decreased Breath Sounds - Cardiovascular Exam Cardiovascular Exam: +S1, +S2 - GI/Abdominal Exam GI & Abdominal Exam: Soft. absent: Tenderness Additional comments: dry dressings in place Results - Vital Signs Recent Vital Signs: Last Vital Signs Temp 98.2 F 11/27/17 22:00 Pulse 92 H 11/27/17 22:00 Resp 20 11/27/17 22:00 BP 116/79 11/27/17 22:00 Pulse Ox 95 11/27/17 22:00 - Labs Result Diagrams: 11/28/17 06:15 11/28/17 06:15 Labs: Laboratory Results - last 24 hr 11/27/17 11/27/17 16:00 21:42 POC Glucose (mg/dL) 132 H 119 H Assessment & Plan - Assessment and Plan (Free Text) Plan: Assessment abdominal wound infection history of acute pulmonary embolism, on anticoagulation HTN DM morbid obesity with BMI 44 Plan follow up blood and urine cx; started the patient on Vancomycin and Zosyn; patient is for OR tomorrow and will follow up OR cultures and findings
[2017-11-29] MEDS: Piperacillin/Tazobact 3.375 gm 100 ML IVPB SCH ×5 (00:27→23:32)
[2017-11-29] MEDS: Vancomycin 1gm in NS 250ml 1 GM/250 ML BAG IVPB SCH ×2 (06:12→19:06)
[2017-11-29 06:58] LABS: INR 1.51 (0.93-1.08); PROTHROMBIN TIME 17.5 SECONDS (9.4-12.5)
[2017-11-29 07:01] LABS: BASO # 0.02 K/mm3 (0.0-2.0); BASO % 0.3 % (0.0-3.0); EOS # 0.2 (0.0-0.7); EOS % 2.8 % (1.5-5.0); GRAN # 3.71 (1.4-6.5); GRAN % 58.2 % (50.0-68.0); HEMOGLOBIN 10.3 g/dL (12.0-16.0); LYMPH # 1.7 (1.2-3.4); LYMPH % 26.5 % (22.0-35.0); MEAN CELL VOLUME 86.5 fl (80.0-105.0); MEAN CORPUSCULAR HEMOGLOBIN 27.2 pg (25.0-35.0); MEAN CORPUSCULAR HGB CONC 31.5 g/dl (31.0-37.0); MONO # 0.8 (0.1-0.6); MONO % 12.2 % (1.0-6.0); RBC 3.78 10^6/uL (3.5-6.1); RED CELL DISTRIBUTION WIDTH 16.4 % (11.5-14.5); WHITE BLOOD COUNT 6.4 10^3/ul (4.5-11.0)
[2017-11-29 07:22] LABS: ALB/GLOB RATIO 0.7 (1.1-1.8); ALT/SGPT 28 U/L (7-56); AST/SGOT 24 U/L (14-36); BLOOD UREA NITROGEN 20 mg/dL (7-21); CALCIUM 8.9 mg/dL (8.4-10.5); GFR AFRICAN-AMERICAN > 60; GFR NON-AFRICAN AMERICAN > 60
[2017-11-29] MEDS ORDERED: Phytonadione 10 mg/ml Inj (Adult) SC STA (09:31)
[2017-11-29] MEDS: ARNUITY ELLIPTA 100 MCG INH SCH (09:59)
[2017-11-29] MEDS: Collagenase 250 Units/gm Ointment(30 gm) TOP SCH ×2 (09:59→19:11)
[2017-11-29] MEDS ORDERED: Home Med 1 UNIT PO SCH (10:00)
[2017-11-29] MEDS: Sodium Chloride 0.9% 1,000 ML IV SCH ×2 (10:01→19:11)
--- NOTE | 2017-11-29 10:21 | PN ---
SUBJECTIVE: The patient was seen and examined at bedside on the general medical hinkle. No acute events overnight. She remains afebrile, hemodynamically stable and is pending OR debridement of her necrotic abdominal wall wound later today. She otherwise feels well and denies fevers, chills, rigors, nausea, vomiting, diarrhea or urinary symptoms. OBJECTIVE VITAL SIGNS: Temperature 97.9, pulse 80, blood pressure 123/77, respiratory rate 20, oxygen saturation 96% on room air. GENERAL: Morbidly obese woman, lying in bed in no apparent distress. HEENT: PERRL. EOMI. No scleral icterus. No conjunctival pallor. NECK: Supple with full range of motion. No JVD. LUNGS: Clear to auscultation. CARDIOVASCULAR: Regular rate and rhythm. Normal S1 and S2. ABDOMEN: Obese, normoactive bowel sounds, stage II pressure ulcer with a necrotic center and surrounding erythema and edema noted to her abdominal fold. EXTREMITIES: Trace lower extremity edema bilaterally. NEUROLOGIC: Awake, alert and oriented x3. No focal motor deficits. LABORATORY DATA: WBC is 6.4 with 58% neutrophils, hemoglobin 10, hematocrit 33, platelets 382, 000. Chemistry reviewed and unremarkable. INR 1.5. Blood cultures with no growth to date. ASSESSMENT: The patient is a 57 year old woman with multiple medical comorbidities including morbid obesity who was sent to the ED for evaluation of a nonhealing stage II pressure ulcer to her abdominal wall, after failure of outpatient antibiotics, for consideration for IV antibiotics, continued local wound care and possible surgical debridement. PLAN 1. Cellulitis of the abdominal wall with stage II pressure ulcer. Input from Dr. Hassan greatly appreciated and the patient is scheduled for OR debridement. Input from Dr. Ross of ID appreciated, the patient remains on Vancomycin 1 g IV q. 12 hours and Zosyn 3.375 g IV q. 6 hours. Continue with local wound care, continue to monitor for fever and leukocytosis. Blood cultures remain negative. 2. Morbid obesity. Continue to encourage lifestyle modifications and arrange outpatient followup with dietitian and dot etcher. 3. Dilated cardiomyopathy with an EF of 20%. Cardiac catheterization from 11/06 demonstrated nonobstructive CAD consistent with a primary cardiomyopathy. Continue Coreg 3.125 mg p.o. b.i.d., Lasix 40 mg p.o. daily, Lisinopril 10 mg p.o. daily and HCTZ 12.5 mg p.o. daily. Coumadin on hold in anticipation of OR debridement. The patient will need a repeat TTE after discharge to reassess her LV function and if it remains below 35%, she will need evaluation for ICD placement. 4. History of provoked DVT and bilateral PE s/p IVC filter. The patient completed 6 months of anticoagulation therapy for her provoked DVT, but given her underlying cardiomyopathy with low EF, she will likely require lifelong anticoagulation. 5. Hypertension, blood pressure controlled. Continue with current medications. 6. Iron-deficiency anemia secondary to dysfunctional uterine bleed. Labs demonstrate stable H/H. Continue to monitor CBC daily. The patient declines Feosol due to constipation. She has been encouraged to follow up with Gynecology on an outpatient basis. 7. Noninsulin-dependent diabetes mellitus, diet controlled, with most recent A1c of 5.9. Continue to monitor fingersticks before meals and at bedtime. 8. Anxiety disorder. Continue Xanax 0.25 mg p.o. daily. 9. Prophylaxis: GI prophylaxis is not indicated as the patient is eating. Continue with Lovenox for DVT prophylaxis as Coumadin is on hold in anticipation of OR. CODE STATUS: Full code. Jorge Nguyen MD MTDDarío
[2017-11-29] MEDS ORDERED: Bupivacaine 0.5% Inj(30mL) ONE (13:45)
[2017-11-29] MEDS ORDERED: Midazolam 2 MG/2 ML VIAL ONE (14:32)
[2017-11-29] MEDS ORDERED: Etomidate 20 mg/10ml Inj IV ONE (14:33)
--- NOTE | 2017-11-29 15:43 | PCM.SURG1 ---
Surgeon's Initial Post Op Note - Surgeon's Notes Surgeon: Dr. Hassan Family Literacy Coordinator: Dr. Meyers PGY2, Dr. Collins PGY3 Type of Anesthesia: IV Sedation, Local Pre-Operative Diagnosis: Abdominal wound debridement Operative Findings: see operative report Post-Operative Diagnosis: same Operation Performed: abdominal wound skin debridement. application of wound vac Specimen/Specimens Removed: eschar Estimated Blood Loss: EBL {In ML}: 75 Blood Products Given: N/A Drains Used: No Drains Post-Op Condition: Good Date of Surgery/Procedure: 11/29/17 Time of Surgery/Procedure: 15:43
--- NOTE | 2017-11-29 16:36 | CP.PCM.PN ---
Subjective - Date & Time of Evaluation Date of Evaluation: 11/29/17 Time of Evaluation: 11:30 - Subjective Subjective: For surgery today, no fevers, less abdominal pain. Objective - Vital Signs/Intake and Output Vital Signs (last 24 hours): Temp Pulse Resp BP Pulse Ox 97.9 F 80 20 123/77 96 11/29/17 07:30 11/29/17 07:30 11/29/17 07:30 11/29/17 07:30 11/29/17 07:30 Intake and Output: 11/29/17 11/29/17 06:59 18:59 Intake Total 720 Balance 720 - Medications Medications: Current Medications Alprazolam (Xanax) 0.25 mg PO DAILY PRN; Protocol PRN Reason: Anxiety Stop: 12/06/17 10:01 Last Admin: 11/28/17 22:22 Dose: 0.25 mg Carvedilol (Coreg) 3.125 mg PO BID [facility] Last Admin: 11/28/17 17:51 Dose: 3.125 mg Collagenase (Santyl) 0 gm TOP BID [facility] Last Admin: 11/28/17 17:58 Dose: 1 appl Enoxaparin Sodium (Lovenox) 100 mg SC Q12 [facility] Last Admin: 11/28/17 21:14 Dose: 100 mg Furosemide (Lasix) 40 mg PO DAILY [facility] Last Admin: 11/28/17 09:25 Dose: 40 mg Home Med (Home Med) 1 unit INH DAILY [facility] Home Med (Home Med) 1 unit INH DAILY [facility] Hydrochlorothiazide (Microzide) 12.5 mg PO DAILY [facility] Last Admin: 11/28/17 09:27 Dose: 12.5 mg Vancomycin HCl (Vancomycin 1gm) 1 gm in 250 mls @ 167 mls/hr IVPB Q12H [facility] PRN Reason: Protocol Last Admin: 11/29/17 06:12 Dose: 167 mls/hr Piperacillin Sod/Tazobactam Sod (Zosyn 3.375 In Ns 100ml) 100 mls @ 200 mls/hr IVPB Q6 [facility] PRN Reason: Protocol Stop: 12/05/17 12:01 Last Admin: 11/29/17 05:20 Dose: 200 mls/hr Sodium Chloride (Sodium Chloride 0.9%) 1,000 mls @ 150 mls/hr IV .Q6H40M [facility] Lisinopril (Zestril) 10 mg PO DAILY [facility] Last Admin: 11/28/17 09:26 Dose: 10 mg Tramadol HCl (Ultram) 50 mg PO TID PRN PRN Reason: Pain, moderate (4-7) Last Admin: 11/29/17 06:36 Dose: 50 mg - Labs Labs: 11/29/17 06:20 11/29/17 06:20 PT 17.5 SECONDS (9.4-12.5) H 11/29/17 06:20 INR 1.51 (0.93-1.08) H 11/29/17 06:20 APTT 42.8 Seconds (25.1-36.5) H 11/27/17 10:40 - Constitutional Appears: Non-toxic, Chronically Ill - Head Exam Head Exam: NORMAL INSPECTION - ENT Exam ENT Exam: Mucous Membranes Moist - Neck Exam Neck Exam: absent: Meningismus - Respiratory Exam Respiratory Exam: Decreased Breath Sounds - Cardiovascular Exam Cardiovascular Exam: +S1, +S2 - GI/Abdominal Exam GI & Abdominal Exam: Soft. absent: Tenderness Assessment and Plan - Assessment and Plan (Free Text) Plan: Assessment abdominal wound infection history of acute pulmonary embolism, on anticoagulation HTN DM morbid obesity with BMI 44 Plan follow up blood and wound cx; continue Vancomycin and Zosyn day 2; patient is for OR today and will follow up OR cultures and findings
[2017-11-29] MEDS ORDERED: HYDROmorphone 0.5 mg/0.5 ml ISec IVP PRN (16:42)
[2017-11-29] MEDS: Oxycodone/Acetaminophen 5/325 mg Tab PO PRN (23:55)
--- NOTE | 2017-11-30 00:06 | PN ---
DATE: SUBJECTIVE: Rivka Pierce is seen. LABORATORY DATA: The gram stain is positive for gram positive variable rods and a gram-positive cocci. Final pathology is pending. ASSESSMENT AND PLAN: The leg is improving. We will follow peripherally. Scott Hassan MD
[2017-11-30] MEDS: Piperacillin/Tazobact 3.375 gm 100 ML IVPB SCH ×4 (05:31→23:36)
[2017-11-30] MEDS: Vancomycin 1gm in NS 250ml 1 GM/250 ML BAG IVPB SCH ×2 (06:26→17:15)
[2017-11-30 06:50] LABS: BASO # 0.02 K/mm3 (0.0-2.0); BASO % 0.3 % (0.0-3.0); EOS # 0.2 (0.0-0.7); EOS % 3.7 % (1.5-5.0); GRAN # 3.81 (1.4-6.5); GRAN % 61.6 % (50.0-68.0); LYMPH # 1.4 (1.2-3.4); MEAN CORPUSCULAR HEMOGLOBIN 27.3 pg (25.0-35.0); MEAN CORPUSCULAR HGB CONC 31.4 g/dl (31.0-37.0); MONO # 0.8 (0.1-0.6); MONO % 12.4 % (1.0-6.0); RBC 3.3 10^6/uL (3.5-6.1); RED CELL DISTRIBUTION WIDTH 16.4 % (11.5-14.5); WHITE BLOOD COUNT 6.2 10^3/ul (4.5-11.0)
[2017-11-30 07:14] LABS: INR 1.53 (0.93-1.08); PROTHROMBIN TIME 17.8 SECONDS (9.4-12.5)
[2017-11-30 07:42] LABS: ALB/GLOB RATIO 0.7 (1.1-1.8); ALBUMIN 2.7 g/dL (3.0-4.8); ALT/SGPT 18 U/L (7-56); AST/SGOT 24 U/L (14-36); BLOOD UREA NITROGEN 19 mg/dL (7-21); CALCIUM 8.6 mg/dL (8.4-10.5); GFR AFRICAN-AMERICAN > 60; GFR NON-AFRICAN AMERICAN > 60
--- NOTE | 2017-11-30 08:21 | CP.PCM.PN ---
Subjective - Date & Time of Evaluation Date of Evaluation: 11/30/17 Time of Evaluation: 08:16 - Subjective Subjective: Surgery Progress Note: Pt seen and examined at bedside. KI. Denies F/C/N/V/D/CP/SOB. Wound vac present at wound, no drainage noted. All pt's concerns addressed by the team. States that she has no further questions. Objective - Vital Signs/Intake and Output Vital Signs (last 24 hours): Temp Pulse Resp BP Pulse Ox 98 F 79 20 112/62 93 L 11/30/17 07:59 11/30/17 07:59 11/30/17 07:59 11/30/17 07:59 11/30/17 07:59 Intake and Output: 11/30/17 11/30/17 06:59 18:59 Intake Total 960 Balance 960 - Medications Medications: Current Medications Acetaminophen (Tylenol 325mg Tab) 650 mg PO Q4H PRN PRN Reason: Pain, Mild (1-3) Alprazolam (Xanax) 0.25 mg PO DAILY PRN; Protocol PRN Reason: Anxiety Stop: 12/06/17 10:01 Last Admin: 11/28/17 22:22 Dose: 0.25 mg Carvedilol (Coreg) 3.125 mg PO BID [facility] Last Admin: 11/29/17 18:03 Dose: 3.125 mg Collagenase (Santyl) 0 gm TOP BID [facility] Last Admin: 11/29/17 19:11 Dose: Not Given Enoxaparin Sodium (Lovenox) 100 mg SC Q12 [facility] Last Admin: 11/28/17 21:14 Dose: 100 mg Furosemide (Lasix) 40 mg PO DAILY [facility] Last Admin: 11/29/17 09:58 Dose: 40 mg Home Med (Home Med) 1 unit INH DAILY [facility] Last Admin: 11/29/17 09:59 Dose: 1 unit Home Med (Home Med) 1 unit INH DAILY [facility] Last Admin: 11/29/17 09:59 Dose: 1 unit Hydrochlorothiazide (Microzide) 12.5 mg PO DAILY [facility] Last Admin: 11/29/17 09:57 Dose: 12.5 mg Vancomycin HCl (Vancomycin 1gm) 1 gm in 250 mls @ 167 mls/hr IVPB Q12H [facility] PRN Reason: Protocol Last Admin: 11/30/17 06:26 Dose: 167 mls/hr Piperacillin Sod/Tazobactam Sod (Zosyn 3.375 In Ns 100ml) 100 mls @ 200 mls/hr IVPB Q6 [facility] PRN Reason: Protocol Stop: 12/05/17 12:01 Last Admin: 11/30/17 05:31 Dose: 200 mls/hr Lisinopril (Zestril) 10 mg PO DAILY [facility] Last Admin: 11/29/17 09:58 Dose: 10 mg Oxycodone/Acetaminophen (Percocet 5/325 Mg Tab) 1 tab PO Q6H PRN PRN Reason: Pain, severe (8-10) Stop: 12/02/17 23:44 Last Admin: 11/29/17 23:55 Dose: 1 tab Tramadol HCl (Ultram) 50 mg PO TID PRN PRN Reason: Pain, moderate (4-7) Last Admin: 11/29/17 22:18 Dose: 50 mg - Labs Labs: 11/30/17 06:15 11/30/17 06:15 PT 17.8 SECONDS (9.4-12.5) H 11/30/17 06:15 INR 1.53 (0.93-1.08) H 11/30/17 06:15 APTT 42.8 Seconds (25.1-36.5) H 11/27/17 10:40 - Additional Findings Additional findings: - Constitutional Appears: Non-toxic, Chronically Ill - Head Exam Head Exam: NORMAL INSPECTION - ENT Exam ENT Exam: Mucous Membranes Moist - Neck Exam Neck exam: Negative for: Meningismus - Respiratory Exam Respiratory Exam: Decreased Breath Sounds - Cardiovascular Exam Cardiovascular Exam: +S1, +S2 - GI/Abdominal Exam GI & Abdominal Exam: Soft. absent: Tenderness Additional comments: right sided abdominal dressing in place, left sided abdominal site - connected to wound vac Assessment and Plan - Assessment and Plan (Free Text) Assessment: 57 year old female with cellulitis of pannus, s/p abdominal wound skin debridement and application of wound vac, POD#1: - Santyl BID to left lower pannus, cont with wound vac - Sylvadine BID to right lower pannus - IV antibiotics - Pain control - Will discuss with Dr. Hassan
[2017-11-30] MEDS: Enoxaparin 100 mg Syringe SC SCH ×2 (09:54→21:55)
[2017-11-30] MEDS: Oxycodone/Acetaminophen 5/325 mg Tab PO PRN ×2 (09:54→18:44)
[2017-11-30] MEDS: Collagenase 250 Units/gm Ointment(30 gm) TOP SCH ×2 (09:57→18:53)
[2017-11-30] MEDS: ARNUITY ELLIPTA 100 MCG INH SCH (09:58)
--- NOTE | 2017-11-30 13:27 | PN ---
DATE: SUBJECTIVE: The patient is in room 562, bed 2. The patient sitting up in the chair. She has no complaint and have been no acute events overnight. PHYSICAL EXAMINATION: VITAL SIGNS: Temperature of 98 with a pulse rate of 79, blood pressure 112/62, respiratory rate of 20, O2 saturation of 93% on room air. HEENT: Unremarkable. NECK: Supple with a full range of motion. LUNGS: Clear to auscultation and percussion bilaterally. HEART: With a regular rate and rhythm. No murmurs, rubs, or gallops. ABDOMEN: Soft, it is nontender. There is no organomegaly. There is a bandage over the wound. NEUROLOGIC: The patient is intact. LABORATORY VALUES: WBC of 6.2, hemoglobin and hematocrit of 9 and 28.7. Chemistry is entirely normal with the exception of an albumin of 2.7. Microbiology is still pending. IMPRESSION: At this time, 1. Cellulitis. 2. Congestive heart failure. 3. Shortness of breath. Obi Nguyen MD
--- NOTE | 2017-11-30 20:04 | CP.PCM.PN ---
Subjective - Date & Time of Evaluation Date of Evaluation: 11/30/17 Time of Evaluation: 12:00 - Subjective Subjective: Comfortable, still with pain in the abdominal area, wound vacuum placed and debridement done yesterdayy, no fevers. Objective - Vital Signs/Intake and Output Vital Signs (last 24 hours): Temp Pulse Resp BP Pulse Ox 98 F 80 20 112/62 93 L 11/30/17 07:59 11/30/17 09:56 11/30/17 07:59 11/30/17 09:56 11/30/17 07:59 Intake and Output: 11/30/17 11/30/17 06:59 18:59 Intake Total 960 Balance 960 - Medications Medications: Current Medications Acetaminophen (Tylenol 325mg Tab) 650 mg PO Q4H PRN PRN Reason: Pain, Mild (1-3) Alprazolam (Xanax) 0.25 mg PO DAILY PRN; Protocol PRN Reason: Anxiety Stop: 12/06/17 10:01 Last Admin: 11/28/17 22:22 Dose: 0.25 mg Carvedilol (Coreg) 3.125 mg PO BID [facility] Last Admin: 11/30/17 09:56 Dose: 3.125 mg Collagenase (Santyl) 0 gm TOP BID [facility] Last Admin: 11/30/17 09:57 Dose: Not Given Enoxaparin Sodium (Lovenox) 100 mg SC Q12 [facility] Last Admin: 11/30/17 09:54 Dose: 100 mg Furosemide (Lasix) 40 mg PO DAILY [facility] Last Admin: 11/30/17 09:56 Dose: 40 mg Home Med (Home Med) 1 unit INH DAILY [facility] Last Admin: 11/30/17 09:58 Dose: 1 unit Home Med (Home Med) 1 unit INH DAILY [facility] Last Admin: 11/30/17 09:58 Dose: 1 unit Hydrochlorothiazide (Microzide) 12.5 mg PO DAILY [facility] Last Admin: 11/30/17 09:56 Dose: 12.5 mg Vancomycin HCl (Vancomycin 1gm) 1 gm in 250 mls @ 167 mls/hr IVPB Q12H [facility] PRN Reason: Protocol Last Admin: 11/30/17 06:26 Dose: 167 mls/hr Piperacillin Sod/Tazobactam Sod (Zosyn 3.375 In Ns 100ml) 100 mls @ 200 mls/hr IVPB Q6 [facility] PRN Reason: Protocol Stop: 12/05/17 12:01 Last Admin: 11/30/17 05:31 Dose: 200 mls/hr Lisinopril (Zestril) 10 mg PO DAILY [facility] Last Admin: 11/30/17 09:55 Dose: 10 mg Oxycodone/Acetaminophen (Percocet 5/325 Mg Tab) 1 tab PO Q6H PRN PRN Reason: Pain, severe (8-10) Stop: 12/02/17 23:44 Last Admin: 11/30/17 09:54 Dose: 1 tab Tramadol HCl (Ultram) 50 mg PO TID PRN PRN Reason: Pain, moderate (4-7) Last Admin: 11/29/17 22:18 Dose: 50 mg Warfarin Sodium (Coumadin) 4 mg PO 1800 [facility] PRN Reason: Protocol - Labs Labs: 11/30/17 06:15 11/30/17 06:15 PT 17.8 SECONDS (9.4-12.5) H 11/30/17 06:15 INR 1.53 (0.93-1.08) H 11/30/17 06:15 APTT 42.8 Seconds (25.1-36.5) H 11/27/17 10:40 - Constitutional Appears: Non-toxic - Head Exam Head Exam: NORMAL INSPECTION - ENT Exam ENT Exam: Mucous Membranes Moist - Neck Exam Neck Exam: absent: Meningismus - Respiratory Exam Respiratory Exam: Decreased Breath Sounds - Cardiovascular Exam Cardiovascular Exam: +S1, +S2 - GI/Abdominal Exam GI & Abdominal Exam: Soft. absent: Tenderness Additional comments: wound vacuum in place Assessment and Plan - Assessment and Plan (Free Text) Plan: Assessment abdominal wound infection S/P debridement and wound vacuum placement POD #1 history of acute pulmonary embolism, on anticoagulation HTN DM morbid obesity with BMI 44 Plan follow up wound cx from the OR; continue Vancomycin and Zosyn day 3
[2017-12-01] MEDS: Piperacillin/Tazobact 3.375 gm 100 ML IVPB SCH ×3 (05:26→18:37)
[2017-12-01] MEDS: Vancomycin 1gm in NS 250ml 1 GM/250 ML BAG IVPB SCH ×2 (05:26→20:06)
[2017-12-01 07:11] LABS: BASO # 0.02 K/mm3 (0.0-2.0); BASO % 0.3 % (0.0-3.0); EOS # 0.3 (0.0-0.7); EOS % 3.5 % (1.5-5.0); GRAN # 5.14 (1.4-6.5); GRAN % 67.4 % (50.0-68.0); HEMOGLOBIN 9.1 g/dL (12.0-16.0); LYMPH # 1.3 (1.2-3.4); LYMPH % 16.6 % (22.0-35.0); MEAN CELL VOLUME 85.4 fl (80.0-105.0); MEAN CORPUSCULAR HEMOGLOBIN 27.1 pg (25.0-35.0); MEAN CORPUSCULAR HGB CONC 31.7 g/dl (31.0-37.0); MONO # 0.9 (0.1-0.6); MONO % 12.2 % (1.0-6.0); RBC 3.36 10^6/uL (3.5-6.1); RED CELL DISTRIBUTION WIDTH 16.4 % (11.5-14.5); WHITE BLOOD COUNT 7.6 10^3/ul (4.5-11.0)
[2017-12-01 07:21] LABS: INR 1.51 (0.93-1.08); PROTHROMBIN TIME 17.5 SECONDS (9.4-12.5)
[2017-12-01 07:22] LABS: ALB/GLOB RATIO 0.8 (1.1-1.8); ALBUMIN 2.9 g/dL (3.0-4.8); ALT/SGPT 20 U/L (7-56); AST/SGOT 24 U/L (14-36); BLOOD UREA NITROGEN 17 mg/dL (7-21); CALCIUM 8.7 mg/dL (8.4-10.5); GFR AFRICAN-AMERICAN > 60; GFR NON-AFRICAN AMERICAN > 60
--- NOTE | 2017-12-01 08:46 | CP.PCM.PN ---
Subjective - Date & Time of Evaluation Date of Evaluation: 12/01/17 Time of Evaluation: 08:44 - Subjective Subjective: Surgery: Dr. Hassan Pt seen and examined. No acute events overnight. Has mild discomfort at surgical site. No other complaints. Objective - Vital Signs/Intake and Output Vital Signs (last 24 hours): Temp Pulse Resp BP Pulse Ox 99.1 F 83 20 99/61 L 97 11/30/17 23:19 11/30/17 23:19 11/30/17 23:19 11/30/17 23:19 11/30/17 23:19 Intake and Output: 12/01/17 12/01/17 06:59 18:59 Intake Total 1230 Output Total 500 Balance 730 - Medications Medications: Current Medications Acetaminophen (Tylenol 325mg Tab) 650 mg PO Q4H PRN PRN Reason: Pain, Mild (1-3) Last Admin: 12/01/17 07:58 Dose: 650 mg Alprazolam (Xanax) 0.25 mg PO DAILY PRN; Protocol PRN Reason: Anxiety Stop: 12/06/17 10:01 Last Admin: 11/30/17 22:24 Dose: 0.25 mg Carvedilol (Coreg) 3.125 mg PO BID [facility] Last Admin: 11/30/17 17:15 Dose: Not Given Collagenase (Santyl) 0 gm TOP BID [facility] Last Admin: 11/30/17 18:53 Dose: Not Given Enoxaparin Sodium (Lovenox) 100 mg SC Q12 [facility] Last Admin: 11/30/17 21:55 Dose: 100 mg Furosemide (Lasix) 40 mg PO DAILY [facility] Last Admin: 11/30/17 09:56 Dose: 40 mg Home Med (Home Med) 1 unit INH DAILY [facility] Last Admin: 11/30/17 09:58 Dose: 1 unit Home Med (Home Med) 1 unit INH DAILY [facility] Last Admin: 11/30/17 09:58 Dose: 1 unit Hydrochlorothiazide (Microzide) 12.5 mg PO DAILY [facility] Last Admin: 11/30/17 09:56 Dose: 12.5 mg Vancomycin HCl (Vancomycin 1gm) 1 gm in 250 mls @ 167 mls/hr IVPB Q12H [facility] PRN Reason: Protocol Last Admin: 12/01/17 05:26 Dose: 167 mls/hr Piperacillin Sod/Tazobactam Sod (Zosyn 3.375 In Ns 100ml) 100 mls @ 200 mls/hr IVPB Q6 [facility] PRN Reason: Protocol Stop: 12/05/17 12:01 Last Admin: 12/01/17 05:26 Dose: 200 mls/hr Lisinopril (Zestril) 10 mg PO DAILY [facility] Last Admin: 11/30/17 09:55 Dose: 10 mg Oxycodone/Acetaminophen (Percocet 5/325 Mg Tab) 1 tab PO Q6H PRN PRN Reason: Pain, severe (8-10) Stop: 12/02/17 23:44 Last Admin: 11/30/17 18:44 Dose: 1 tab Tramadol HCl (Ultram) 50 mg PO TID PRN PRN Reason: Pain, moderate (4-7) Last Admin: 12/01/17 06:44 Dose: 50 mg Warfarin Sodium (Coumadin) 4 mg PO 1800 [facility] PRN Reason: Protocol Last Admin: 11/30/17 17:09 Dose: 4 mg - Labs Labs: 12/01/17 06:20 12/01/17 06:20 PT 17.5 SECONDS (9.4-12.5) H 12/01/17 06:20 INR 1.51 (0.93-1.08) H 12/01/17 06:20 APTT 42.8 Seconds (25.1-36.5) H 11/27/17 10:40 - Constitutional Appears: Non-toxic, No Acute Distress - Head Exam Head Exam: ATRAUMATIC, NORMOCEPHALIC - Eye Exam Eye Exam: EOMI - ENT Exam ENT Exam: Mucous Membranes Moist - Neck Exam Neck Exam: Full ROM - Respiratory Exam Respiratory Exam: NORMAL BREATHING PATTERN. absent: Accessory Muscle Use, Respiratory Distress - GI/Abdominal Exam Additional comments: Left lower pannus wound vac in place, no leak R lower pannus chronic ulcer, dressing in place, C/D/I - Neurological Exam Neurological Exam: Alert, Awake, Oriented x3 Assessment and Plan - Assessment and Plan (Free Text) Assessment: 57F with cellulitis of pannus, s/p abdominal wound skin debridement and application of wound vac, POD#2 Plan: -will plan for wound vac change one Sunday -R lower pannus, c/w silvadene BID -c/w abx per ID -d/w attending Marylin PGY3
--- NOTE | 2017-12-01 09:46 | PN ---
SUBJECTIVE: The patient was seen and examined at bedside on the general medical hinkle. No acute events overnight. She remains afebrile, hemodynamically stable and is doing well s/p OR debridement of her anterior abdominal wall wound with placement of wound VAC. She reports minimal drainage from the wound VAC and states that her pain is fairly well controlled with her current analgesic regimen. OBJECTIVE VITAL SIGNS: Temperature 99.1, pulse 87, blood pressure 105/61, respiratory rate 18, oxygen saturation 97% on room air. GENERAL: Morbidly obese woman, sitting up in a chair in mild distress secondary to abdominal pain at the surgical site. HEENT: PERRL. EOMI. No scleral icterus. No conjunctival pallor. NECK: Supple with full range of motion. No JVD. LUNGS: Clear to auscultation. CARDIOVASCULAR: Regular rate and rhythm. Normal S1 and S2. ABDOMEN: Obese, normoactive bowel sounds. Wound VAC in place with minimal drainage. EXTREMITIES: Trace lower extremity edema bilaterally. NEUROLOGIC: Awake, alert and oriented x3. No focal motor deficits. LABORATORY DATA: WBC is 7.6 with 67% neutrophils, hemoglobin 9.1, hematocrit 28, platelets 367. Chemistry reviewed and unremarkable. Blood cultures with no growth to date. Abdominal wound culture is pending. ASSESSMENT: The patient is a 57 year old woman with multiple medical comorbidities including morbid obesity who was sent to the ED for evaluation of a nonhealing stage II pressure ulcer to abdominal wall, after failure of outpatient antibiotics, for consideration for IV antibiotics and continued local wound care who is now s/p OR debridement with placement of wound VAC POD #2. PLAN: 1. Cellulitis of the abdominal wall with stage II pressure ulcer s/p OR debridement with placement of wound VAC POD #2. Input from Dr. Hassan and the surgical team noted and greatly appreciated. Continue with postoperative care as per surgical team. Input from Dr. Ross of [place] also noted and appreciated. The patient remains on Vancomycin 1 g IV q. 12 hours and Zosyn 3.375 g IV q. 6 hours. Continue to monitor for fever and leukocytosis and await final culture reports. 2. Dilated cardiomyopathy with an EF of 20%. Continue Coreg 3.125 mg p.o. b.i.d., Lasix 40 mg p.o. daily, Lisinopril 10 mg p.o. daily and HCTZ 12.5 mg p.o. daily. Coumadin has been restarted at a dose of Coumadin 4 mg p.o. daily. We will continue to monitor INR daily with goal INR 2-3. 3. History of provoked DVT and bilateral PE s/p IVC filter. As above the patient has been restarted on Coumadin 4 mg p.o. daily. We will continue to monitor INR daily with goal INR of 2-3. The patient has previously completed 6 months of therapy but in the setting of dilated cardiomyopathy with and ejection fraction of 20%, she will likely require a lifelong anticoagulation therapy. 4. Hypertension, blood pressure controlled. Continue with current medications. 5. Iron-deficiency anemia secondary to dysfunctional uterine bleed. Labs demonstrates stable H/H. Continue to monitor CBC daily. The patient declines Feosol due to constipation. She has been encouraged to follow up with Gynecology on an outpatient basis. 6. Noninsulin-dependent diabetes mellitus, diet controlled, with most recent A1c of 5.9. Continue to monitor fingersticks q. a.c. and at bedtime. 7. Anxiety disorder. Continue Xanax 0.25 mg p.o. daily. 8. Morbid obesity. Continue to encourage lifestyle modifications and continue with outpatient dietary and nutrition follow up. 9. Prophylaxis: GI prophylaxis is not indicated as the patient is eating. The patient has been restarted on Coumadin, thus DVT prophylaxis is not indicated. CODE STATUS: Full code. Jorge Nguyen MD [facility]
[2017-12-01] MEDS: Enoxaparin 100 mg Syringe SC SCH ×2 (11:38→22:30)
[2017-12-01] MEDS: Collagenase 250 Units/gm Ointment(30 gm) TOP SCH ×2 (11:39→18:39)
[2017-12-01] MEDS: ARNUITY ELLIPTA 100 MCG INH SCH (11:39)
[2017-12-01] MEDS: Oxycodone/Acetaminophen 5/325 mg Tab PO PRN ×2 (11:46→18:41)
--- NOTE | 2017-12-01 19:56 | PN ---
DATE: 12/01/2017 SUBJECTIVE: Patient is in bed, in no acute distress. PHYSICAL EXAMINATION: VITAL SIGNS: Temperature is 98, blood pressure is 116/70, respiratory rate of 20, heart rate of 84. HEENT: Unremarkable. NECK: Supple. LUNGS: Have decreased breath sounds. HEART: Normal S1, S2. ABDOMEN: Soft, nontender. LABORATORY EXAMINATION: Reveals a white count of 7.6, hemoglobin of 9, platelets of 364. Coagulation is noted. Chemistries reveals a BUN of 17, creatinine of 0.8. Urinalysis is noted and microbiology reveals the Corynebacterium species. ASSESSMENT AND PLAN: This is a 57-year-old female who was seen early this morning in 562, bed 2, with abdominal wound infection status post debridement with wound VAC placement on postop day #2 with a history of acute pulmonary emboli and anticoagulation, diabetes, hypertension, morbid obesity with a BMI of 44, on vancomycin, Zosyn on day #4 with microbiology with Corynebacterium species from the abdominal wound. Other anaerobic cultures have no growth. Dr. Jorge Nguyen's note is reviewed. We will follow with you. Brock Gambino MD
[2017-12-02] MEDS: Piperacillin/Tazobact 3.375 gm 100 ML IVPB SCH ×4 (00:04→17:45)
[2017-12-02] MEDS: Oxycodone/Acetaminophen 5/325 mg Tab PO PRN ×3 (06:01→19:59)
[2017-12-02] MEDS: Vancomycin 1gm in NS 250ml 1 GM/250 ML BAG IVPB SCH ×2 (06:02→18:52)
[2017-12-02 07:28] LABS: BASO # 0.03 K/mm3 (0.0-2.0); BASO % 0.4 % (0.0-3.0); EOS # 0.3 (0.0-0.7); EOS % 4.3 % (1.5-5.0); GRAN # 4.73 (1.4-6.5); GRAN % 64.9 % (50.0-68.0); HEMOGLOBIN 9.1 g/dL (12.0-16.0); LYMPH # 1.4 (1.2-3.4); LYMPH % 19.1 % (22.0-35.0); MEAN CELL VOLUME 85.5 fl (80.0-105.0); MEAN CORPUSCULAR HEMOGLOBIN 27.4 pg (25.0-35.0); MEAN PLATELET VOLUME 9.1 fl (7.0-11.0); MONO # 0.8 (0.1-0.6); MONO % 11.3 % (1.0-6.0); RBC 3.32 10^6/uL (3.5-6.1); RED CELL DISTRIBUTION WIDTH 16.6 % (11.5-14.5); WHITE BLOOD COUNT 7.3 10^3/ul (4.5-11.0)
[2017-12-02 07:40] LABS: PROTHROMBIN TIME 18.1 SECONDS (9.4-12.5)
[2017-12-02 07:41] LABS: INR 1.56 (0.93-1.08)
[2017-12-02 07:58] LABS: ALB/GLOB RATIO 0.7 (1.1-1.8); ALBUMIN 2.9 g/dL (3.0-4.8); ALT/SGPT 26 U/L (7-56); AST/SGOT 24 U/L (14-36); BLOOD UREA NITROGEN 16 mg/dL (7-21); CALCIUM 8.8 mg/dL (8.4-10.5); GFR AFRICAN-AMERICAN > 60; GFR NON-AFRICAN AMERICAN > 60
[2017-12-02] MEDS ORDERED: Potassium Chloride 20 mEq ER Tab PO ONE (09:45)
[2017-12-02] MEDS: Enoxaparin 100 mg Syringe SC SCH ×2 (10:10→21:50)
[2017-12-02] MEDS: ARNUITY ELLIPTA 100 MCG INH SCH (10:13)
[2017-12-02] MEDS: Collagenase 250 Units/gm Ointment(30 gm) TOP SCH ×2 (10:13→17:46)
--- NOTE | 2017-12-02 12:57 | PN ---
SUBJECTIVE: The patient was seen and examined at bedside on the general medical hinkle. No acute events overnight. She remains afebrile and hemodynamically stable and is doing well s/p OR debridement of her anterior abdominal wall wound with placement of wound VAC. PHYSICAL EXAMINATION: VITAL SIGNS: Temperature 98, pulse 93, blood pressure 135/83, respiratory rate 20, oxygen saturation 96% on room air. GENERAL: Morbidly obese woman sitting up in a chair in no apparent distress. HEENT: PERRL. EOMI. No scleral icterus. No conjunctival pallor. NECK: Supple with full range of motion. No JVD. LUNGS: Clear to auscultation. CARDIOVASCULAR: Regular rate and rhythm. Normal S1 and S2. ABDOMEN: Obese, normoactive bowel sounds. Wound VAC in place with no drainage. EXTREMITIES: Trace lower extremity edema bilaterally. NEUROLOGIC: Awake, alert and oriented x3. No focal motor deficits. LABORATORY DATA: WBC is 7.3, hemoglobin 9.1, hematocrit 28, platelets 368. Chemistry reviewed and unremarkable with the exception of potassium of 3.3, INR 1.56. Blood cultures with no growth to date. Wound culture with Corynebacterium. ASSESSMENT: The patient is a 57 year old woman with multiple medical comorbidities including morbid obesity who was sent to the ED for evaluation of a nonhealing stage II pressure ulcer to abdominal wall, after failure of outpatient antibiotics, for consideration for IV antibiotics and continued local wound care who is now s/p OR debridement with placement of wound VAC POD #3. PLAN: 1. Cellulitis of the abdominal wall with stage II pressure ulcer s/p OR debridement with placement of wound VAC POD #3. Continue with care as per Dr. Hassan and the surgical team. Input from Dr. Gambino appreciated and she remains on Vancomycin 1 g IV q. 12 hours and Zosyn 3.375 g IV q. 6 hours. Blood cultures with no growth to date. Continue to monitor for fever and leukocytosis. 2. Dilated cardiomyopathy with an EF of 20%. Continue Coreg 3.125 mg p.o. b.i.d., Lasix 40 mg p.o. daily, Lisinopril 10 mg p.o. daily and HCTZ 12.5 mg p.o. daily. Continue Coumadin 7.5 mg p.o. daily with goal INR 2-3. 3. History of provoked DVT and bilateral PE s/p IVC filter. Continue Coumadin 7.5 mg p.o. daily with goal INR of 2-3. In the setting of dilated cardiomyopathy with an EF of 20%, she will likely require lifelong anticoagulation therapy. 4. Hypertension, blood pressure controlled. Continue with current medications. 5. Iron-deficiency anemia. Labs demonstrates stable H/H. Continue to monitor CBC daily. The patient declines Feosol due to constipation. 6. NIDDM, diet controlled, with most recent A1c of 5.9. Continue to monitor fingersticks q. a.c. and at bedtime. 7. Anxiety disorder. Continue Xanax 0.25 mg p.o. daily. 8. Morbid obesity. The patient has been counseled on lifestyle modifications and has been encouraged to follow up with outpatient business liaison officer and wel[employer] arc. 9. Prophylaxis: GI prophylaxis is not indicated as the patient is eating. The patient has been restarted on Coumadin, thus DVT prophylaxis is not indicated. CODE STATUS: Full code. Jorge Nguyen MD [facility]
--- NOTE | 2017-12-02 18:16 | PN ---
DATE: 12/02/2017 SUBJECTIVE: Patient is in bed, in no acute distress, was seen early this morning. PHYSICAL EXAMINATION: VITAL SIGNS: On exam, temperature is 98, blood pressure is 130/80, respiratory rate of 16. HEENT: Examination of HEENT is unremarkable. NECK: Supple. LUNGS: Have decreased breath sounds. HEART: Normal S1, S2. ABDOMEN: Soft, nontender. LABORATORY EXAMINATION: Reveals a white count of 7.3, hemoglobin of 9, platelets of 368. Chemistries are noted. Urinalysis is noted and microbiology reveals corynebacterium species. ASSESSMENT AND PLAN: A 57-year-old female seen earlier this morning with abdominal wound infection, status post debridement with a wound vac, postprocedure day #3, history of acute pulmonary emboli and anticoagulation, history of diabetes, hypertension, morbid obesity, BMI of 44. On vancomycin and Zosyn day #5 with corynebacterium from the abdominal wound infection. Case discussed with Dr. Jorge Nguyen. We will continue the present course. Brock Gambino MD
[2017-12-03] MEDS: Piperacillin/Tazobact 3.375 gm 100 ML IVPB SCH ×5 (00:45→23:31)
[2017-12-03] MEDS ORDERED: Oxycodone/Acetaminophen 5/325 mg Tab PO ONE (05:39)
[2017-12-03] MEDS: Vancomycin 1gm in NS 250ml 1 GM/250 ML BAG IVPB SCH ×3 (06:03→21:39)
[2017-12-03 07:13] LABS: BASO # 0.03 K/mm3 (0.0-2.0); BASO % 0.4 % (0.0-3.0); EOS # 0.3 (0.0-0.7); EOS % 4.2 % (1.5-5.0); GRAN # 4.49 (1.4-6.5); GRAN % 63.7 % (50.0-68.0); LYMPH # 1.4 (1.2-3.4); LYMPH % 19.7 % (22.0-35.0); MEAN CELL VOLUME 86.1 fl (80.0-105.0); MEAN CORPUSCULAR HEMOGLOBIN 27.2 pg (25.0-35.0); MEAN CORPUSCULAR HGB CONC 31.6 g/dl (31.0-37.0); MONO # 0.9 (0.1-0.6); RBC 3.31 10^6/uL (3.5-6.1); RED CELL DISTRIBUTION WIDTH 16.6 % (11.5-14.5); WHITE BLOOD COUNT 7.1 10^3/ul (4.5-11.0)
[2017-12-03 07:26] LABS: INR 1.75 (0.93-1.08); PROTHROMBIN TIME 20.4 SECONDS (9.4-12.5)
[2017-12-03 07:56] LABS: ALB/GLOB RATIO 0.7 (1.1-1.8); ALBUMIN 2.9 g/dL (3.0-4.8); ALT/SGPT 21 U/L (7-56); AST/SGOT 33 U/L (14-36); BLOOD UREA NITROGEN 15 mg/dL (7-21); CALCIUM 8.9 mg/dL (8.4-10.5); GFR AFRICAN-AMERICAN > 60; GFR NON-AFRICAN AMERICAN > 60
[2017-12-03] MEDS: ARNUITY ELLIPTA 100 MCG INH SCH (09:37)
[2017-12-03] MEDS: Enoxaparin 100 mg Syringe SC SCH ×2 (09:38→21:40)
[2017-12-03] MEDS: Collagenase 250 Units/gm Ointment(30 gm) TOP SCH ×2 (09:38→18:26)
[2017-12-03] MEDS: Oxycodone/Acetaminophen 5/325 mg Tab PO PRN ×2 (12:03→21:40)
--- NOTE | 2017-12-03 12:14 | CP.PCM.PN ---
Subjective - Date & Time of Evaluation Date of Evaluation: 12/03/17 Time of Evaluation: 12:13 - Subjective Subjective: 57 y/o overweight female seen at bedside this morning after consultation for painful elongated thickened toenails. Pt is known to Dr. Doe's service. She states the nails are thick and she cannot cut them herself. Objective - Vital Signs/Intake and Output Vital Signs (last 24 hours): Temp Pulse Resp BP Pulse Ox 97.8 F 88 20 130/84 97 12/03/17 07:30 12/03/17 09:36 12/03/17 07:30 12/03/17 09:37 12/03/17 07:30 Intake and Output: 12/03/17 12/03/17 06:59 18:59 Intake Total 1260 Balance 1260 - Medications Medications: Current Medications Acetaminophen (Tylenol 325mg Tab) 650 mg PO Q4H PRN PRN Reason: Pain, Mild (1-3) Last Admin: 12/01/17 07:58 Dose: 650 mg Alprazolam (Xanax) 0.25 mg PO DAILY PRN; Protocol PRN Reason: Anxiety Stop: 12/06/17 10:01 Last Admin: 12/02/17 00:04 Dose: 0.25 mg Carvedilol (Coreg) 3.125 mg PO BID [facility] Last Admin: 12/03/17 09:36 Dose: 3.125 mg Collagenase (Santyl) 0 gm TOP BID [facility] Last Admin: 12/03/17 09:38 Dose: Not Given Enoxaparin Sodium (Lovenox) 100 mg SC Q12 [facility] Last Admin: 12/03/17 09:38 Dose: 100 mg Furosemide (Lasix) 40 mg PO DAILY [facility] Last Admin: 12/03/17 09:37 Dose: 40 mg Home Med (Home Med) 1 unit INH DAILY [facility] Last Admin: 12/03/17 09:37 Dose: 1 unit Home Med (Home Med) 1 unit INH DAILY [facility] Last Admin: 12/03/17 09:37 Dose: 1 unit Hydrochlorothiazide (Microzide) 12.5 mg PO DAILY [facility] Last Admin: 12/03/17 09:36 Dose: 12.5 mg Vancomycin HCl (Vancomycin 1gm) 1 gm in 250 mls @ 167 mls/hr IVPB Q12H [facility] PRN Reason: Protocol Last Admin: 12/03/17 06:03 Dose: 167 mls/hr Piperacillin Sod/Tazobactam Sod (Zosyn 3.375 In Ns 100ml) 100 mls @ 200 mls/hr IVPB Q6 [facility] PRN Reason: Protocol Stop: 12/05/17 12:01 Last Admin: 12/03/17 12:05 Dose: 200 mls/hr Lisinopril (Zestril) 10 mg PO DAILY [facility] Last Admin: 12/03/17 09:36 Dose: 10 mg Oxycodone/Acetaminophen (Percocet 5/325 Mg Tab) 1 tab PO Q4H PRN PRN Reason: Pain, moderate (4-7) Stop: 12/06/17 09:02 Last Admin: 12/03/17 12:03 Dose: 1 tab Warfarin Sodium (Coumadin) 7.5 mg PO 1800 [facility] PRN Reason: Protocol Last Admin: 12/02/17 17:45 Dose: 7.5 mg - Labs Labs: 12/03/17 06:30 12/03/17 06:30 PT 20.4 SECONDS (9.4-12.5) H 12/03/17 06:30 INR 1.75 (0.93-1.08) H 12/03/17 06:30 APTT 42.8 Seconds (25.1-36.5) H 11/27/17 10:40
--- NOTE | 2017-12-03 12:20 | CP.PCM.CON ---
History of Present Illness - History of Present Illness History of Present Illness: 57 y/o obese female seen at bedside this morning after consultation for painful elongated thickened toenails. Pt is known to Dr. Doe's service. She states she regularly has routine nail care done as she is a diabetic on mcc blood thinners and she was advised not to cut them herself. She admits they are painful as they get longer and thicker, causing her discomfort when wearing socks and shoes. Denies any other pedal complaints at present. She states her legs are chronically swollen but are not causing her pain at this time. Denies F /C/N/V/CP/SOB PMHx: DM, morbid obesity, HTN, hx of DVT with PE PSHx: IVC filter All: NKDA Family Hx: multiple family members with HTN, DM Social: Hx: denies EtOH, cigarette or illicit drug use Review of Systems - Review of Systems All systems: reviewed and no additional remarkable complaints except (per HPI) Past Patient History - Past Social History Smoking Status: Never Smoked - CARDIAC Hx Congestive Heart Failure: Yes - PULMONARY Hx Chronic Obstructive Pulmonary Disease (COPD): Yes - NEUROLOGICAL Hx Paralysis: No - HEENT Hx HEENT Problems: Yes (STRABISMUS WITH SX.) - RENAL Hx Chronic Kidney Disease: No - ENDOCRINE/METABOLIC Hx Diabetes Mellitus Type 2: Yes - HEMATOLOGICAL/ONCOLOGICAL Hx Blood Transfusions: Yes (04/2017) Hx Blood Transfusion Reaction: No - INTEGUMENTARY Hx Dermatological Problems: No - MUSCULOSKELETAL/RHEUMATOLOGICAL Hx Musculoskeletal Disorders: No - GASTROINTESTINAL Hx Gastrointestinal Disorders: No - GENITOURINARY/GYNECOLOGICAL Hx Genitourinary Disorders: No - PSYCHIATRIC Hx Emotional Abuse: No Hx Physical Abuse: No Hx Substance Use: No - SURGICAL HISTORY Hx Surgeries: Yes (EYE SX"LAZY EYE";) - ANESTHESIA Hx Anesthesia Reactions: No Hx Malignant Hyperthermia: No Meds Allergies/Adverse Reactions: Allergies Allergy/AdvReac Type Severity Reaction Status Date / Time No Known Allergies Allergy Verified 11/27/17 12:12 - Medications Medications: Current Medications Acetaminophen (Tylenol 325mg Tab) 650 mg PO Q4H PRN PRN Reason: Pain, Mild (1-3) Last Admin: 12/01/17 07:58 Dose: 650 mg Alprazolam (Xanax) 0.25 mg PO DAILY PRN; Protocol PRN Reason: Anxiety Stop: 12/06/17 10:01 Last Admin: 12/02/17 00:04 Dose: 0.25 mg Carvedilol (Coreg) 3.125 mg PO BID [facility] Last Admin: 12/03/17 09:36 Dose: 3.125 mg Collagenase (Santyl) 0 gm TOP BID [facility] Last Admin: 12/03/17 09:38 Dose: Not Given Enoxaparin Sodium (Lovenox) 100 mg SC Q12 [facility] Last Admin: 12/03/17 09:38 Dose: 100 mg Furosemide (Lasix) 40 mg PO DAILY [facility] Last Admin: 12/03/17 09:37 Dose: 40 mg Home Med (Home Med) 1 unit INH DAILY [facility] Last Admin: 12/03/17 09:37 Dose: 1 unit Home Med (Home Med) 1 unit INH DAILY [facility] Last Admin: 12/03/17 09:37 Dose: 1 unit Hydrochlorothiazide (Microzide) 12.5 mg PO DAILY [facility] Last Admin: 12/03/17 09:36 Dose: 12.5 mg Vancomycin HCl (Vancomycin 1gm) 1 gm in 250 mls @ 167 mls/hr IVPB Q12H [facility] PRN Reason: Protocol Last Admin: 12/03/17 06:03 Dose: 167 mls/hr Piperacillin Sod/Tazobactam Sod (Zosyn 3.375 In Ns 100ml) 100 mls @ 200 mls/hr IVPB Q6 [facility] PRN Reason: Protocol Stop: 12/05/17 12:01 Last Admin: 12/03/17 12:05 Dose: 200 mls/hr Lisinopril (Zestril) 10 mg PO DAILY [facility] Last Admin: 12/03/17 09:36 Dose: 10 mg Oxycodone/Acetaminophen (Percocet 5/325 Mg Tab) 1 tab PO Q4H PRN PRN Reason: Pain, moderate (4-7) Stop: 12/06/17 09:02 Last Admin: 12/03/17 12:03 Dose: 1 tab Warfarin Sodium (Coumadin) 7.5 mg PO 1800 [facility] PRN Reason: Protocol Last Admin: 12/02/17 17:45 Dose: 7.5 mg Physical Exam - Constitutional Appears: Well, Non-toxic, No Acute Distress - Extremities Exam Additional comments: Lower extremity examination: Vasc: DP/PT pulses palpable 2/4. Temperature gradient warm to cool. +3 pitting edema noted to bilateral lower extremities. CFT < 3 sec to all digits Derm: Elongated thickened dystrophic toenails with subungual debris x 10. No open lesions, no maceration, no erythema, no ecchymosis. Neuro: Protective sensation grossly intact Ortho: Tenderness to palpation of elongated dystrophic toenails x10 - Neurological Exam Neurological exam: Alert, Oriented x3 - Psychiatric Exam Psychiatric exam: Normal Affect, Normal Mood Results - Vital Signs Recent Vital Signs: Last Vital Signs Temp 97.8 F 12/03/17 07:30 Pulse 88 12/03/17 09:36 Resp 20 12/03/17 07:30 BP 130/84 12/03/17 09:37 Pulse Ox 97 12/03/17 07:30 - Labs Result Diagrams: 12/03/17 06:30 12/03/17 06:30 Labs: Laboratory Results - last 24 hr 12/02/17 12/02/17 12/03/17 15:53 21:12 06:23 WBC RBC Hgb Hct MCV MCH MCHC RDW Plt Count MPV Gran % Lymph % (Auto) Sharkey % (Auto) Eos % (Auto) Baso % (Auto) Gran # Lymph # (Auto) Sharkey # (Auto) Eos # (Auto) Baso # (Auto) PT INR Sodium Potassium Chloride Carbon Dioxide Anion Gap BUN Creatinine Est GFR ( Amer) Est GFR (Non-Af Amer) POC Glucose (mg/dL) 137 H 129 H 96 Random Glucose Calcium Total Bilirubin AST ALT Alkaline Phosphatase Total Protein Albumin Globulin Albumin/Globulin Ratio 12/03/17 12/03/17 12/03/17 06:30 06:30 06:30 WBC 7.1 RBC 3.31 L Hgb 9.0 L Hct 28.5 L MCV 86.1 MCH 27.2 MCHC 31.6 RDW 16.6 H Plt Count 382 MPV 9.0 Gran % 63.7 Lymph % (Auto) 19.7 L Sharkey % (Auto) 12.0 H Eos % (Auto) 4.2 Baso % (Auto) 0.4 Gran # 4.49 Lymph # (Auto) 1.4 Sharkey # (Auto) 0.9 H Eos # (Auto) 0.3 Baso # (Auto) 0.03 PT 20.4 H INR 1.75 H Sodium 138 Potassium 3.9 Chloride 103 Carbon Dioxide 28 Anion Gap 11 BUN 15 Creatinine 0.7 Est GFR ( Amer) > 60 Est GFR (Non-Af Amer) > 60 POC Glucose (mg/dL) Random Glucose 116 H Calcium 8.9 Total Bilirubin 0.8 AST 33 ALT 21 Alkaline Phosphatase 133 H Total Protein 6.9 Albumin 2.9 L Globulin 4.0 Albumin/Globulin Ratio 0.7 L 12/03/17 11:34 WBC RBC Hgb Hct MCV MCH MCHC RDW Plt Count MPV Gran % Lymph % (Auto) Sharkey % (Auto) Eos % (Auto) Baso % (Auto) Gran # Lymph # (Auto) Sharkey # (Auto) Eos # (Auto) Baso # (Auto) PT INR Sodium Potassium Chloride Carbon Dioxide Anion Gap BUN Creatinine Est GFR ( Amer) Est GFR (Non-Af Amer) POC Glucose (mg/dL) 159 H Random Glucose Calcium Total Bilirubin AST ALT Alkaline Phosphatase Total Protein Albumin Globulin Albumin/Globulin Ratio Assessment & Plan - Assessment and Plan (Free Text) Assessment: 57 y/o diabetic obese female on mcc blood thinners with painful toenails x10 with tinea unguium Plan: Pt seen and evaluated at bedside Discussed with attending Dr. Doe Aseptic debridement of elongated dystrophic toenails with sterile nippers x 10 Pt tolerated procedure without incident Emphasized the importance of elevating her legs while in bed to decrease leg swelling Podiatry to sign off at this time Thank you for this consult - please re-consult as needed
--- NOTE | 2017-12-03 13:55 | PN ---
SUBJECTIVE: The patient was seen and examined at bedside on the general medical hinkle. No acute events overnight. She remains afebrile, hemodynamically stable and is doing well s/p OR debridement of her anterior abdominal wall wound with placement of wound VAC. She denies fevers, chills, or rigors and overall offers no complaints. OBJECTIVE: VITAL SIGNS: Temperature 97.8, pulse 88, blood pressure 130/84, respiratory rate 20, oxygen saturation 97% on room air. GENERAL: Morbidly obese woman, sitting up in chair, in no apparent distress. HEENT: PERRL. EOMI. No scleral icterus. No conjunctival pallor. NECK: Supple with full range of motion. No JVD. LUNGS: Clear to auscultation. CARDIOVASCULAR: Regular rate and rhythm. Normal S1 and S2. ABDOMEN: Obese, normoactive bowel sounds. Wound VAC in place with no drainage. EXTREMITIES: Trace lower extremity edema bilaterally. NEUROLOGIC: Awake, alert, and oriented x3. No focal motor deficits. LABORATORY DATA: WBC 7.1, hemoglobin 9, hematocrit 28, and platelets 382. Chemistry reviewed and unremarkable. INR 1.75. Blood cultures with no growth to date. Wound culture with Corynebacterium. ASSESSMENT: The patient is a 57 year old woman with multiple medical comorbidities including morbid obesity who was sent to the ED for evaluation of a nonhealing stage II pressure ulcer to the abdominal wall, after failure of outpatient antibiotics, for consideration for IV antibiotics and continued local wound care who is now s/p OR debridement with placement of wound VAC POD #4. PLAN: 1. Cellulitis of the abdominal wall with stage II pressure ulcer s/p OR debridement with placement of wound VAC POD #4. Continue with postoperative care as per Dr. Hassan. Input from Dr. Gambino appreciated. Continue Vancomycin 1 g IV q. 12 hours and Zosyn 3.375 g IV q. 6 hours. Blood cultures with no growth to date. Continue to monitor for fever and leukocytosis. 2. Dilated cardiomyopathy with an EF of 20%. Continue Coreg 3.125 mg p.o. b.i.d., Lasix 40 mg p.o. daily, Lisinopril 10 mg p.o. daily, and HCTZ 12.5 mg p.o. daily. Continue Coumadin 7.5 mg p.o. daily with goal INR 2-3. 3. History of provoked DVT and bilateral PE status post IVC filter. Continue Coumadin 7.5 mg p.o. daily with goal INR of 2-3 and in the setting of dilated cardiomyopathy with an EF of 20%. She will likely require lifelong anticoagulation therapy. 4. Hypertension, blood pressure controlled. Continue with current medications. 5. Iron-deficiency anemia. Labs demonstrate stable H and H. Continue to monitor CBC daily. The patient declines Feosol due to constipation. 6. NIDDM, diet controlled, with most recent A1c of 5.9. Continue to monitor fingerstick before every meal and at bedtime. 7. Anxiety disorder. Continue Xanax 0.25 mg p.o. daily. 8. Morbid obesity. The patient has been counseled on lifestyle modifications and has been encouraged to follow up with an outpatient small engine technician and traffic court referee. 9. Prophylaxi. GI prophylaxis is not indicated as the patient is eating. The patient remains on Coumadin, thus DVT prophylaxis is not indicated. CODE STATUS: Full code. Jorge Nguyen MD ISMAEL
--- NOTE | 2017-12-03 14:18 | CP.PCM.PN ---
Subjective - Date & Time of Evaluation Date of Evaluation: 12/03/17 Time of Evaluation: 11:50 - Subjective Subjective: Still with abdominal pain, no fevers, not in distress. Objective - Vital Signs/Intake and Output Vital Signs (last 24 hours): Temp Pulse Resp BP Pulse Ox 97.8 F 88 20 130/84 97 12/03/17 07:30 12/03/17 09:36 12/03/17 07:30 12/03/17 09:37 12/03/17 07:30 Intake and Output: 12/03/17 12/03/17 06:59 18:59 Intake Total 1260 Balance 1260 - Medications Medications: Current Medications Acetaminophen (Tylenol 325mg Tab) 650 mg PO Q4H PRN PRN Reason: Pain, Mild (1-3) Last Admin: 12/01/17 07:58 Dose: 650 mg Alprazolam (Xanax) 0.25 mg PO DAILY PRN; Protocol PRN Reason: Anxiety Stop: 12/06/17 10:01 Last Admin: 12/02/17 00:04 Dose: 0.25 mg Carvedilol (Coreg) 3.125 mg PO BID [facility] Last Admin: 12/03/17 09:36 Dose: 3.125 mg Collagenase (Santyl) 0 gm TOP BID [facility] Last Admin: 12/03/17 09:38 Dose: Not Given Enoxaparin Sodium (Lovenox) 100 mg SC Q12 [facility] Last Admin: 12/03/17 09:38 Dose: 100 mg Furosemide (Lasix) 40 mg PO DAILY [facility] Last Admin: 12/03/17 09:37 Dose: 40 mg Home Med (Home Med) 1 unit INH DAILY [facility] Last Admin: 12/03/17 09:37 Dose: 1 unit Home Med (Home Med) 1 unit INH DAILY [facility] Last Admin: 12/03/17 09:37 Dose: 1 unit Hydrochlorothiazide (Microzide) 12.5 mg PO DAILY [facility] Last Admin: 12/03/17 09:36 Dose: 12.5 mg Vancomycin HCl (Vancomycin 1gm) 1 gm in 250 mls @ 167 mls/hr IVPB Q12H [facility] PRN Reason: Protocol Last Admin: 12/03/17 06:03 Dose: 167 mls/hr Piperacillin Sod/Tazobactam Sod (Zosyn 3.375 In Ns 100ml) 100 mls @ 200 mls/hr IVPB Q6 [facility] PRN Reason: Protocol Stop: 12/05/17 12:01 Last Admin: 12/03/17 05:19 Dose: 200 mls/hr Lisinopril (Zestril) 10 mg PO DAILY [facility] Last Admin: 12/03/17 09:36 Dose: 10 mg Oxycodone/Acetaminophen (Percocet 5/325 Mg Tab) 1 tab PO Q4H PRN PRN Reason: Pain, moderate (4-7) Stop: 12/06/17 09:02 Warfarin Sodium (Coumadin) 7.5 mg PO 1800 [facility] PRN Reason: Protocol Last Admin: 12/02/17 17:45 Dose: 7.5 mg - Labs Labs: 12/03/17 06:30 12/03/17 06:30 PT 20.4 SECONDS (9.4-12.5) H 12/03/17 06:30 INR 1.75 (0.93-1.08) H 12/03/17 06:30 APTT 42.8 Seconds (25.1-36.5) H 11/27/17 10:40 - Constitutional Appears: Chronically Ill - Head Exam Head Exam: NORMAL INSPECTION - ENT Exam ENT Exam: Mucous Membranes Moist - Neck Exam Neck Exam: absent: Meningismus - Respiratory Exam Respiratory Exam: Decreased Breath Sounds - Cardiovascular Exam Cardiovascular Exam: +S1, +S2 - GI/Abdominal Exam GI & Abdominal Exam: Soft. absent: Tenderness Additional comments: wound vacuum in place over the abdomen Assessment and Plan - Assessment and Plan (Free Text) Plan: Assessment abdominal wound infection S/P debridement and wound vacuum placement POD #4 history of acute pulmonary embolism, on anticoagulation HTN DM morbid obesity with BMI 44 Plan continue Vancomycin and Zosyn day 6 to complete 7-10 days of antibiotics
--- NOTE | 2017-12-03 16:40 | CP.PCM.PN ---
Subjective - Date & Time of Evaluation Date of Evaluation: 12/03/17 Time of Evaluation: 16:36 - Subjective Subjective: Surgery: Dr. Hassan Pt seen and examined. Resting comfortably in bed. No acute events overnight. Wound vac changed at bedside. Objective - Vital Signs/Intake and Output Vital Signs (last 24 hours): Temp Pulse Resp BP Pulse Ox 98.1 F 87 18 129/79 97 12/03/17 14:00 12/03/17 14:00 12/03/17 14:00 12/03/17 14:00 12/03/17 14:00 Intake and Output: 12/03/17 12/03/17 06:59 18:59 Intake Total 1260 540 Balance 1260 540 - Medications Medications: Current Medications Acetaminophen (Tylenol 325mg Tab) 650 mg PO Q4H PRN PRN Reason: Pain, Mild (1-3) Last Admin: 12/01/17 07:58 Dose: 650 mg Alprazolam (Xanax) 0.25 mg PO DAILY PRN; Protocol PRN Reason: Anxiety Stop: 12/06/17 10:01 Last Admin: 12/02/17 00:04 Dose: 0.25 mg Carvedilol (Coreg) 3.125 mg PO BID [facility] Last Admin: 12/03/17 09:36 Dose: 3.125 mg Collagenase (Santyl) 0 gm TOP BID [facility] Last Admin: 12/03/17 09:38 Dose: Not Given Enoxaparin Sodium (Lovenox) 100 mg SC Q12 [facility] Last Admin: 12/03/17 09:38 Dose: 100 mg Furosemide (Lasix) 40 mg PO DAILY [facility] Last Admin: 12/03/17 09:37 Dose: 40 mg Home Med (Home Med) 1 unit INH DAILY [facility] Last Admin: 12/03/17 09:37 Dose: 1 unit Home Med (Home Med) 1 unit INH DAILY [facility] Last Admin: 12/03/17 09:37 Dose: 1 unit Hydrochlorothiazide (Microzide) 12.5 mg PO DAILY [facility] Last Admin: 12/03/17 09:36 Dose: 12.5 mg Vancomycin HCl (Vancomycin 1gm) 1 gm in 250 mls @ 167 mls/hr IVPB Q12H [facility] PRN Reason: Protocol Last Admin: 12/03/17 06:03 Dose: 167 mls/hr Piperacillin Sod/Tazobactam Sod (Zosyn 3.375 In Ns 100ml) 100 mls @ 200 mls/hr IVPB Q6 [facility] PRN Reason: Protocol Stop: 12/05/17 12:01 Last Admin: 12/03/17 12:05 Dose: 200 mls/hr Lisinopril (Zestril) 10 mg PO DAILY [facility] Last Admin: 12/03/17 09:36 Dose: 10 mg Oxycodone/Acetaminophen (Percocet 5/325 Mg Tab) 1 tab PO Q4H PRN PRN Reason: Pain, moderate (4-7) Stop: 12/06/17 09:02 Last Admin: 12/03/17 12:03 Dose: 1 tab Warfarin Sodium (Coumadin) 7.5 mg PO 1800 [facility] PRN Reason: Protocol Last Admin: 12/02/17 17:45 Dose: 7.5 mg - Labs Labs: 12/03/17 06:30 12/03/17 06:30 PT 20.4 SECONDS (9.4-12.5) H 12/03/17 06:30 INR 1.75 (0.93-1.08) H 12/03/17 06:30 APTT 42.8 Seconds (25.1-36.5) H 11/27/17 10:40 - Constitutional Appears: Non-toxic, No Acute Distress - Head Exam Head Exam: ATRAUMATIC, NORMOCEPHALIC - Eye Exam Eye Exam: EOMI - ENT Exam ENT Exam: Mucous Membranes Moist - Neck Exam Neck Exam: Full ROM - Respiratory Exam Respiratory Exam: NORMAL BREATHING PATTERN. absent: Accessory Muscle Use, Respiratory Distress - GI/Abdominal Exam Additional comments: Left lower pannus wound 11x6cm, no erythema or drainage, gilbert base - Extremities Exam Extremities Exam: absent: Calf Tenderness, Pedal Edema - Neurological Exam Neurological Exam: Alert, Awake, Oriented x3 - Psychiatric Exam Psychiatric exam: Normal Affect, Normal Mood - Skin Skin Exam: Dry, Normal Color, Warm Assessment and Plan - Assessment and Plan (Free Text) Assessment: 57F w. chronic Left lower pannus wound s/p debridement POD#4 w. wound vac Plan: -next wound vac change 12/07 -c/w silvadene to R lower pannus wound -d/w attending Marylin PGY3
[2017-12-04] MEDS: Piperacillin/Tazobact 3.375 gm 100 ML IVPB SCH ×3 (05:12→18:15)
[2017-12-04] MEDS: Vancomycin 1gm in NS 250ml 1 GM/250 ML BAG IVPB SCH ×2 (06:36→18:50)
[2017-12-04] MEDS: Oxycodone/Acetaminophen 5/325 mg Tab PO PRN ×2 (06:45→18:13)
[2017-12-04 09:27] VITALS: RESP 20; TEMP 97.8
[2017-12-04] MEDS: Enoxaparin 100 mg Syringe SC SCH (10:25)
[2017-12-04] MEDS: Collagenase 250 Units/gm Ointment(30 gm) TOP SCH ×2 (10:26→18:49)
[2017-12-04] MEDS: ARNUITY ELLIPTA 100 MCG INH SCH (10:30)
--- NOTE | 2017-12-04 11:15 | PN ---
SUBJECTIVE: The patient was seen and examined at bedside on the general medical hinkle. No acute events overnight. She remains afebrile and hemodynamically stable and is s/p exchange of wound VAC. This morning she feels okay and denies fevers, chills, rigors, nausea, vomiting, or diarrhea and overall offers no complaints. PHYSICAL EXAMINATION: VITAL SIGNS: Temperature 97.8, pulse 88, blood pressure 130/84, respiratory rate 20, oxygen saturation 97% on room air. GENERAL: Morbidly obese woman, lying in bed, in no apparent distress. HEENT: PERRL. EOMI. No scleral icterus. No conjunctival pallor. NECK: Supple with full range of motion. No JVD. LUNGS: Clear to auscultation. CARDIOVASCULAR: Regular rate and rhythm. Normal S1 and S2. ABDOMEN: Obese. Normoactive bowel sounds. Wound VAC in place with no drainage. EXTREMITIES: Trace lower extremity edema bilaterally. NEUROLOGIC: Awake, alert, and oriented x3. No focal motor deficits. LABORATORY DATA: Morning labs are pending. Blood cultures with no growth to date. ASSESSMENT: The patient is a 57 year old woman with multiple medical comorbidities including morbid obesity who was sent to the ED for evaluation of a nonhealing stage II pressure ulcer to the abdominal wall, after failure of outpatient antibiotics, for consideration of IV antibiotics and continued local wound care , who is now s/p OR debridement with placement of wound vac POD #5. PLAN: 1. Cellulitis of the abdominal wall with stage II pressure ulcer s/p OR debridement with placement of wound VAC POD #5. Continue postoperative care as per Dr. Hassan. Input from Dr. Gambino appreciated. Continue Vancomycin 1 g IV q. 12 hours and Zosyn 3.375 g IV q. 6 hours. Blood cultures with no growth to date. 2. Dilated cardiomyopathy with an EF of 20%. Continue Coreg 3.125 mg p.o. b.i.d., Lasix 40 mg p.o. daily, Lisinopril 10 mg p.o. daily and HCTZ 12.5 mg p.o. daily. Continue Coumadin 7.5 mg p.o. daily with goal INR 2-3. 3. History of provoked DVT and bilateral PE s/p IVC filter. Continue Coumadin 7.5 mg p.o. daily with goal INR of 2-3. The patient will likely require life- long anticoagulation therapy in the setting of dilated cardiomyopathy with an EF of 20%. 4. Hypertension, blood pressure controlled. Continue current medications. 5. Iron-deficiency anemia. Labs demonstrate stable H/H. Continue to monitor CBC daily. The patient declines Feosol due to constipation. 6. NIDDM, diet controlled, with most recent A1c of 5.9. Continue to monitor fingerstick before every meal and at bedtime. 7. Anxiety disorder. Continue Xanax 0.25 mg p.o. daily. 8. Morbid obesity. The patient has been counseled on lifestyle modifications and arrangements will be made for followup with an outpatient shaft headman and lumber mover. 9. Prophylaxis. GI prophylaxis is not indicated as the patient is eating. The patient remains on Coumadin, thus DVT prophylaxis is not indicated. CODE STATUS: Full code. Jorge Nguyen MD [email or web address]
--- NOTE | 2017-12-04 16:11 | CP.PCM.PN ---
Subjective - Date & Time of Evaluation Date of Evaluation: 12/04/17 Time of Evaluation: 12:15 - Subjective Subjective: Comfortable, no fevers, not in distress, afebrile. Objective - Vital Signs/Intake and Output Vital Signs (last 24 hours): Temp Pulse Resp BP Pulse Ox 97.8 F 81 20 124/81 96 12/04/17 07:30 12/04/17 10:25 12/04/17 07:30 12/04/17 10:25 12/04/17 07:30 - Medications Medications: Current Medications Acetaminophen (Tylenol 325mg Tab) 650 mg PO Q4H PRN PRN Reason: Pain, Mild (1-3) Last Admin: 12/03/17 23:33 Dose: 650 mg Alprazolam (Xanax) 0.25 mg PO DAILY PRN; Protocol PRN Reason: Anxiety Stop: 12/06/17 10:01 Last Admin: 12/03/17 23:43 Dose: 0.25 mg Carvedilol (Coreg) 3.125 mg PO BID [facility] Last Admin: 12/04/17 10:25 Dose: 3.125 mg Collagenase (Santyl) 0 gm TOP BID [facility] Last Admin: 12/04/17 10:26 Dose: Not Given Enoxaparin Sodium (Lovenox) 100 mg SC Q12 [facility] Last Admin: 12/04/17 10:25 Dose: 100 mg Furosemide (Lasix) 40 mg PO DAILY [facility] Last Admin: 12/04/17 10:25 Dose: 40 mg Home Med (Home Med) 1 unit INH DAILY [facility] Last Admin: 12/04/17 10:30 Dose: 1 unit Home Med (Home Med) 1 unit INH DAILY [facility] Last Admin: 12/04/17 10:30 Dose: 1 unit Hydrochlorothiazide (Microzide) 12.5 mg PO DAILY [facility] Last Admin: 12/04/17 10:25 Dose: 12.5 mg Vancomycin HCl (Vancomycin 1gm) 1 gm in 250 mls @ 167 mls/hr IVPB Q12H [facility] PRN Reason: Protocol Last Admin: 12/04/17 06:36 Dose: 167 mls/hr Piperacillin Sod/Tazobactam Sod (Zosyn 3.375 In Ns 100ml) 100 mls @ 200 mls/hr IVPB Q6 [facility] PRN Reason: Protocol Stop: 12/05/17 12:01 Last Admin: 12/04/17 05:12 Dose: 200 mls/hr Lisinopril (Zestril) 10 mg PO DAILY [facility] Last Admin: 12/04/17 10:25 Dose: 10 mg Oxycodone/Acetaminophen (Percocet 5/325 Mg Tab) 1 tab PO Q4H PRN PRN Reason: Pain, moderate (4-7) Stop: 12/06/17 09:02 Last Admin: 12/04/17 06:45 Dose: 1 tab Warfarin Sodium (Coumadin) 7.5 mg PO 1800 [facility] PRN Reason: Protocol Last Admin: 12/03/17 17:05 Dose: 7.5 mg - Labs Labs: 12/03/17 06:30 12/03/17 06:30 PT 20.4 SECONDS (9.4-12.5) H 12/03/17 06:30 INR 1.75 (0.93-1.08) H 12/03/17 06:30 APTT 42.8 Seconds (25.1-36.5) H 11/27/17 10:40 - Constitutional Appears: Non-toxic, Chronically Ill - Head Exam Head Exam: NORMAL INSPECTION - Neck Exam Neck Exam: absent: Meningismus - Respiratory Exam Respiratory Exam: Decreased Breath Sounds - Cardiovascular Exam Cardiovascular Exam: +S1, +S2 - GI/Abdominal Exam GI & Abdominal Exam: Soft. absent: Tenderness Additional comments: wound vacuum in place Assessment and Plan - Assessment and Plan (Free Text) Plan: Assessment abdominal wound infection S/P debridement and wound vacuum placement POD #5 history of acute pulmonary embolism, on anticoagulation HTN DM morbid obesity with BMI 44 Plan continue Vancomycin and Zosyn day 7 to complete 7-10 days of antibiotics - for change of wound vacuum in 3 days
[2017-12-04 16:42] VITALS: PULSE 85; O2SAT 98
[2017-12-04 18:18] VITALS: BP 126/86
--- NOTE | 2017-12-06 09:15 | DS ---
ADMITTING DIAGNOSIS: Cellulitis of the abdominal wall with stage II pressure ulcer. DISCHARGE DIAGNOSIS: Cellulitis of the abdominal wall with stage II pressure ulcer s/p surgical debridement with placement of wound VAC. SECONDARY DIAGNOSES: Dilated cardiomyopathy (EF of 20%), history of provoked DVT and PE s/p IVD filter placement, HTN, iron-deficiency anemia, NIDDM, anxiety disoder and morbid obesity. CONSULTATIONS: Dr. Gambino (Infectious Disease), Dr. Doe (Podiatry) and Dr. Hassan ( General Surgery). IMAGING STUDIES: Chest x-ray demonstrated no active disease. PROCEDURES: Surgical debridement of anterior abdominal wall stage II pressure ulcer with placement of wound VAC. HISTORY OF PRESENT ILLNESS: The patient is a 57 year old woman with a past medical history of morbid obesity who was sent to [facility] ED by Dr. Hassan for evaluation of a nonhealing stage II ulcer to her pannus. The patient was followed closely by Dr. [facility] for treatment of cellulitis of her abdominal wall and failed outpatient oral antibiotics consisting of Augmentin 875 mg b.i.d. for 2 weeks. She was sent for a CT of the abdomen and pelvis which was negative for abscess or fistulization and given the failure of outpatient therapy, she was advised to present to the ED for continued wound care, evaluation for IV antibiotics and possible surgical debridement. The patient reported persistent pain to her abdomen at the site of the infection and associated edema with scant purulent discharge, but otherwise denied fevers , chills, rigors, nausea or vomiting. On arrival to the ED she was noted to be afebrile, hemodynamically stable and with largely unremarkable laboratory studies. She received a dose of Vancomycin 1 g IV and Zosyn 3.375 g IV before being admitted to the general medical [facility] for continued management. HOSPITAL COURSE: Upon admission to the general medical [facility] she was evaluated by Dr. Gambino of [place] and maintained on Vancomycin 1 g IV q. 12 hours and Zosyn 3.375 g IV q. 6 hours. She was also closely followed by Dr. Hassan and was taken to the OR for operative debridement and placement of wound VAC. Her postoperative course was uncomplicated and underwent daily wound care and wound VAC changes as needed. She reamined afebrile and clinically stable during her hospital stay but was rather deconditioned from prolonged bed rest. After evaluation by PT recommendations were made for transfer to TCU and on hospital day #7 she was transferred to the TCU for continued PT and OT. CONDITION: Fair, improved. DISPOSITION: TCU. DISCHARGE MEDICATIONS: Coumadin 5 mg p.o. daily, Lisinopril 10 mg p.o. daily, HCTZ 12.5 mg p.o. daily, Carvedilol 3.125 mg p.o. b.i.d., Lasix 40 mg p.o. daily, Xanax 0.25 mg p.o. daily, Vancomycin 1 g IV q. 12 hours and Zosyn 3.375 g IV q. 6 hours. FOLLOWUP: The patient will be followed by her PMD and the consultants while in the TCU. Jorge Nguyen MD MTDDarío
--- NOTE | 2017-12-11 01:13 | OP ---
PROCEDURE DATE:11/29/2017 PREOPERATIVE DIAGNOSIS: Infection of the pannus. POSTOPERATIVE DIAGNOSIS: Infection of the pannus. OPERATION PERFORMED: Debridement of the abdominal wall with placement of the wound VAC. DESCRIPTION OF PROCEDURE: In the operating room, patient was identified by name, name of the procedure, laterality, my laura, the consent form and wrist band. The area was prepped with chlorhexidine. After waiting 3 minutes, it was then draped. After the drape, timeout was successfully completed and the operation proceeded. The necrotic tissue on the left side of the abdomen in the pannus was debrided with a 15 blade in the usual manner. It was taken then with a scissor. The residual and the fat was taken with the Versajet down to viable tissue circumferentially. The area in the right side was mildly debrided. Wound VAC was placed in the usual manner. Patient was taken to recovery room in good condition after sponge and needle counts were declared correct. Scott Hassan MD ISMAEL
== END 2017-12-04 19:42 | DRG 571 ==
LOC: ED 09:55 → ERH 11:42 → 5RNO 13:41 → UNDODISIN 12-03 18:56
PROVIDERS: ADMIT Student in an Organized Health Care Education/Training Program; ATTEND Student in an Organized Health Care Education/Training Program
PROC: 0JB80ZZ Excision of Abdomen Subcutaneous Tissue and Fascia, Open Approach (ICD-10-PCS; principal; 2017-11-29 12:15)
PROC: 0HBRXZZ Excision of Toe Nail, External Approach (ICD-10-PCS; 2017-12-03)
PROC: 0HBRXZZ Excision of Toe Nail, External Approach (ICD-10-PCS; 2017-12-03)
PROC: 0HBRXZZ Excision of Toe Nail, External Approach (ICD-10-PCS; 2017-12-03)
PROC: 0HBRXZZ Excision of Toe Nail, External Approach (ICD-10-PCS; 2017-12-03)
PROC: 0HBRXZZ Excision of Toe Nail, External Approach (ICD-10-PCS; 2017-12-03)
PROC: 0HBRXZZ Excision of Toe Nail, External Approach (ICD-10-PCS; 2017-12-03)
PROC: 0HBRXZZ Excision of Toe Nail, External Approach (ICD-10-PCS; 2017-12-03)
PROC: 0HBRXZZ Excision of Toe Nail, External Approach (ICD-10-PCS; 2017-12-03)
PROC: 0HBRXZZ Excision of Toe Nail, External Approach (ICD-10-PCS; 2017-12-03)
PROC: 0HBRXZZ Excision of Toe Nail, External Approach (ICD-10-PCS; 2017-12-03)
DX: L89.892 Pressure ulcer of other site, stage 2 (principal); L03.311 Cellulitis of abdominal wall; I96 Gangrene, not elsewhere classified; I42.0 Dilated cardiomyopathy; I11.0 Hypertensive heart disease with heart failure; E66.01 Morbid (severe) obesity due to excess calories; I50.9 Heart failure, unspecified; Z68.41 Body mass index [BMI] 40.0-44.9, adult; E11.9 Type 2 diabetes mellitus without complications; D50.9 Iron deficiency anemia, unspecified; J44.9 Chronic obstructive pulmonary disease, unspecified; B35.1 Tinea unguium; F41.9 Anxiety disorder, unspecified; Z86.718 Personal history of other venous thrombosis and embolism; Z86.711 Personal history of pulmonary embolism

== ENCOUNTER 2017-12-04 19:42 | Inpatient (IN) | payer BC ==
[2017-12-04] MEDS: Oxycodone/Acetaminophen 5/325 mg Tab PO PRN (22:44)
[2017-12-04 23:34] VITALS: BMI 44.9
[2017-12-04] MEDS ORDERED: Influenza Vaccine 60 mcg/0.5 mL SYR (4YR UP) IM ONE (23:35)
[2017-12-04] MEDS ORDERED: Pneumococcal 23-Valent Vaccine IM ONE (23:35)
[2017-12-05] MEDS ORDERED: Piperacillin/Tazobact 3.375 gm Inj IVPB SCH
[2017-12-05] MEDS: Piperacillin/Tazobact 3.375 gm 100 ML IVPB SCH ×5 (00:16→23:45)
[2017-12-05] MEDS: Enoxaparin 100 mg Syringe SC SCH ×2 (05:28→17:58)
[2017-12-05 06:54] LABS: BASO # 0.03 K/mm3 (0.0-2.0); BASO % 0.4 % (0.0-3.0); EOS # 0.2 (0.0-0.7); EOS % 3.3 % (1.5-5.0); GRAN # 4.53 (1.4-6.5); GRAN % 64.3 % (50.0-68.0); HEMOGLOBIN 8.9 g/dL (12.0-16.0); LYMPH # 1.6 (1.2-3.4); LYMPH % 22.3 % (22.0-35.0); MEAN CELL VOLUME 85.7 fl (80.0-105.0); MEAN CORPUSCULAR HEMOGLOBIN 27.1 pg (25.0-35.0); MEAN CORPUSCULAR HGB CONC 31.6 g/dl (31.0-37.0); MEAN PLATELET VOLUME 9.2 fl (7.0-11.0); MONO # 0.7 (0.1-0.6); MONO % 9.7 % (1.0-6.0); RBC 3.29 10^6/uL (3.5-6.1); RED CELL DISTRIBUTION WIDTH 16.8 % (11.5-14.5)
[2017-12-05 07:08] LABS: ALB/GLOB RATIO 0.7 (1.1-1.8); ALBUMIN 2.8 g/dL (3.0-4.8); ALT/SGPT 22 U/L (7-56); AST/SGOT 23 U/L (14-36); BLOOD UREA NITROGEN 18 mg/dL (7-21); GFR AFRICAN-AMERICAN > 60; GFR NON-AFRICAN AMERICAN > 60
[2017-12-05 07:16] LABS: INR 2.89 (0.93-1.08)
[2017-12-05] MEDS: Oxycodone/Acetaminophen 5/325 mg Tab PO PRN ×3 (07:36→22:33)
[2017-12-05] MEDS: Vancomycin 1gm in NS 250ml 1 GM/250 ML BAG IVPB SCH ×2 (07:38→17:59)
[2017-12-05] MEDS ORDERED: VILANTEROL TR IH SCH (10:00)
[2017-12-05] MEDS ORDERED: UMECLIDINIUM BRM IH SCH (10:00)
[2017-12-05] MEDS: UMECLIDINIUM INH SCH (10:43)
[2017-12-05] MEDS: FLUTICASONE FUROATE IH SCH (10:43)
[2017-12-05] MEDS: VILANTEROL INH SCH (10:43)
[2017-12-05] MEDS: [UNRECOGNIZED DRUG - OTHER] INH SCH (10:43)
[2017-12-05] MEDS: Albuterol-Ipratrop 3 mg / 0.5 (3 ml) UD IH SCH ×4 (11:27→23:42)
--- NOTE | 2017-12-05 17:10 | CP.PCM.CON ---
History of Present Illness - History of Present Illness History of Present Illness: 57 year old female with PMH of HTN, DM, morbid obesity with BMI 45 initially was admitted to [facility] because of abdominal wound. She underwent debridement and wound vacuum placement and is now transferred to [facility] for continued medical care and physical therapy. Infectious Diseases consult is requested to further evaluate and manage. Her abdominal pain is better, no fever or chills, no nausea or vomiting, no headache or dizziness, no chest pain, no diarrhea, no dysuria. She is complaining of swelling of the legs. Review of Systems - Review of Systems All systems: reviewed and no additional remarkable complaints except (as per HPI ) Past Patient History - Past Social History Smoking Status: Never Smoked - CARDIAC Hx Congestive Heart Failure: Yes - PULMONARY Hx Chronic Obstructive Pulmonary Disease (COPD): Yes - NEUROLOGICAL Hx Paralysis: No - HEENT Hx HEENT Problems: Yes (STRABISMUS WITH SX.) - RENAL Hx Chronic Kidney Disease: No - ENDOCRINE/METABOLIC Hx Diabetes Mellitus Type 2: Yes - HEMATOLOGICAL/ONCOLOGICAL Hx Blood Transfusions: Yes (04/2017) Hx Blood Transfusion Reaction: No - INTEGUMENTARY Hx Dermatological Problems: No - MUSCULOSKELETAL/RHEUMATOLOGICAL Hx Falls: Yes (past) - GASTROINTESTINAL Hx Gastrointestinal Disorders: Yes (11/30/17 abd wound debridement/wound vac) - GENITOURINARY/GYNECOLOGICAL Hx Genitourinary Disorders: No Hx Reproductive Disorders: No - PSYCHIATRIC Hx Emotional Abuse: No Hx Physical Abuse: No Hx Substance Use: No - SURGICAL HISTORY Hx Surgeries: Yes (EYE SX"LAZY EYE";) - ANESTHESIA Hx Anesthesia Reactions: No Hx Malignant Hyperthermia: No Meds Allergies/Adverse Reactions: Allergies Allergy/AdvReac Type Severity Reaction Status Date / Time No Known Allergies Allergy Verified 12/04/17 21:14 - Medications Medications: Current Medications Acetaminophen (Tylenol 325mg Tab) 650 mg PO Q4H PRN; Protocol PRN Reason: Pain, Mild (1-3) Albuterol/Ipratropium (Duoneb 3 Mg/0.5 Mg (3 Ml) Ud) 3 ml IH [id number] [facility] Alprazolam (Xanax) 0.25 mg PO DAILY PRN; Protocol PRN Reason: Anxiety Stop: 12/11/17 21:18 Last Admin: 12/05/17 00:22 Dose: 0.25 mg Carvedilol (Coreg) 3.125 mg PO BID [facility] PRN Reason: Protocol Last Admin: 12/05/17 08:22 Dose: 3.125 mg Enoxaparin Sodium (Lovenox) 100 mg SC 0600,1800 [facility] PRN Reason: Protocol Last Admin: 12/05/17 05:28 Dose: 100 mg Furosemide (Lasix) 40 mg PO DAILY [facility] PRN Reason: Protocol Home Med (Home Med) 1 unit INH QAM [facility] Hydrochlorothiazide (Microzide) 12.5 mg PO DAILY [facility] PRN Reason: Protocol Last Admin: 12/05/17 08:22 Dose: 12.5 mg Piperacillin Sod/Tazobactam Sod (Zosyn 3.375 In Ns 100ml) 100 mls @ 200 mls/hr IVPB Q6 [facility] Last Admin: 12/05/17 05:29 Dose: 200 mls/hr Vancomycin HCl (Vancomycin 1gm) 1 gm in 250 mls @ 167 mls/hr IVPB 0600,1800 [facility] Last Admin: 12/05/17 07:38 Dose: 167 mls/hr Lisinopril (Zestril) 10 mg PO DAILY [facility] PRN Reason: Protocol Fluticasone Furoate [Arnuity Ellipta] ( Home Med) 1 puff IH QAM [facility] Oxycodone/Acetaminophen (Percocet 5/325 Mg Tab) 1 tab PO Q4H PRN; Protocol PRN Reason: Pain, moderate (4-7) Stop: 12/07/17 21:18 Last Admin: 12/05/17 07:36 Dose: 1 tab Warfarin Sodium (Coumadin) 5 mg PO 1800 [facility] PRN Reason: Protocol Physical Exam - Constitutional Appears: Chronically Ill - Head Exam Head Exam: NORMAL INSPECTION - Neck Exam Neck exam: Negative for: Meningismus - Respiratory Exam Respiratory Exam: Decreased Breath Sounds - Cardiovascular Exam Cardiovascular Exam: +S1, +S2 - GI/Abdominal Exam GI & Abdominal Exam: Soft. absent: Tenderness Additional comments: wound vacuum in place - Extremities Exam Extremities exam: Positive for: pedal edema Results - Vital Signs Recent Vital Signs: Last Vital Signs Temp 98.3 F 12/04/17 23:16 Pulse 80 12/05/17 08:22 Resp 18 12/04/17 23:16 BP 128/83 12/05/17 08:22 Pulse Ox - Labs Result Diagrams: 12/05/17 06:30 12/05/17 06:30 Labs: Laboratory Results - last 24 hr 12/05/17 12/05/17 12/05/17 03:00 06:30 06:30 WBC 7.0 RBC 3.29 L Hgb 8.9 L Hct 28.2 L MCV 85.7 MCH 27.1 MCHC 31.6 RDW 16.8 H Plt Count 369 MPV 9.2 Gran % 64.3 Lymph % (Auto) 22.3 [place] % (Auto) 9.7 H Eos % (Auto) 3.3 Baso % (Auto) 0.4 Gran # 4.53 Lymph # (Auto) 1.6 [place] # (Auto) 0.7 H Eos # (Auto) 0.2 Baso # (Auto) 0.03 PT 34.0 H INR 2.89 H Sodium Potassium Chloride Carbon Dioxide Anion Gap BUN Creatinine Est GFR ( Amer) Est GFR (Non-Af Amer) POC Glucose (mg/dL) 122 H Random Glucose Calcium Total Bilirubin AST ALT Alkaline Phosphatase Total Protein Albumin Globulin Albumin/Globulin Ratio 12/05/17 06:30 WBC RBC Hgb Hct MCV MCH MCHC RDW Plt Count MPV Gran % Lymph % (Auto) [place] % (Auto) Eos % (Auto) Baso % (Auto) Gran # Lymph # (Auto) [place] # (Auto) Eos # (Auto) Baso # (Auto) PT INR Sodium 139 Potassium 3.7 Chloride 103 Carbon Dioxide 27 Anion Gap 13 BUN 18 Creatinine 0.8 Est GFR ( Amer) > 60 Est GFR (Non-Af Amer) > 60 POC Glucose (mg/dL) Random Glucose 117 H Calcium 9.0 Total Bilirubin 0.5 AST 23 ALT 22 Alkaline Phosphatase 121 Total Protein 6.7 Albumin 2.8 L Globulin 3.9 Albumin/Globulin Ratio 0.7 L Assessment & Plan - Assessment and Plan (Free Text) Plan: Assessment abdominal wound infection S/P debridement and wound vacuum placement POD #6 history of acute pulmonary embolism, on anticoagulation HTN DM morbid obesity with BMI 44 Plan continue Vancomycin and Zosyn day 8 to complete 7-10 days of antibiotics - for change of wound vacuum in 2 days keep legs elevated
--- NOTE | 2017-12-05 19:15 | HP ---
HISTORY OF PRESENT ILLNESS: The patient is a 57 year old woman with a past medical history of morbid obesity and dilated cardiomyopathy who was sent to [facility] ED by Dr. Hassan for evaluation of a non-healing stage II ulcer to her pannus. The patient failed outpatient antimicrobial therapy consisting of Augmentin 875 mg b.i.d. for 2 weeks and was sent for a CT of the abdomen and pelvis which was negative for abscess or fistulization. Due to the failure of wound healing and outpatient antimicrobials she was sent to the ED for admission for evaluation for IV antibiotics and possible surgical debridement. The patient was then taken to the OR by Dr. Hassan where she underwent wound debridement with placement of wound VAC. Her hospital course was uncomplicated and she was subsequently transferred to the TCU for continued antimicrobial therapy, local wound care and physical therapy. PAST MEDICAL HISTORY: As per HPI, also hypertension, elp-ubxquix-kcyquywtt diabetes mellitus, iron- deficiency anemia, anxiety disorder and history of provoked PE/DVT. PAST SURGICAL HISTORY: As per HPI, also IVC filter placement. ALLERGIES: NKDA. MEDICATIONS: Coumadin 5 mg p.o. daily, Lisinopril/HCTZ 10/12.5 mg p.o. daily, Carvedilol 3.125 mg p.o. b.i.d., Lasix 40 mg p.o. daily and Xanax 0.25 mg p.o. daily. FAMILY HISTORY: Noncontributory. SOCIAL HISTORY: No history of toxic habits. REVIEW OF SYSTEMS: A 14-point review of systems is negative except as per HPI. PHYSICAL EXAMINATION: VITAL SIGNS: Temperature 98.3, pulse 86, blood pressure 127/56, respiratory rate 18, oxygen saturation 98% on room air. GENERAL: Morbidly obese woman, lying in bed, in no apparent distress. HEENT: PERRL. EOMI. No scleral icterus. No conjunctival pallor. NECK: Supple with full range of motion. No JVD. LUNGS: Bibasilar crackles. CARDIOVASCULAR: Regular rate and rhythm. Normal S1 and S2. ABDOMEN: Obese, normoactive bowel sounds. Wound VAC in place with no drainage. EXTREMITIES: Trace lower extremity edema bilaterally. NEUROLOGIC: Awake, alert, and oriented x3. No focal motor deficits. LABORATORY DATA: WBC 7, hemoglobin 8.9, hematocrit 28, platelets 369. Chemistry reviewed and unremarkable. INR 2.89. ASSESSMENT: The patient is a 57 year old woman with multiple medical comorbidities including morbid obesity who was sent to the ED for evaluation of a non-healing stage II pressure ulcer to the abdominal wall, after failure of outpatient antibiotics, for consideration of intravenous antibiotics and continued local wound care who is now s/p OR debridement with placement of wound VAC POD #6. PLAN: 1. Cellulitis of the abdominal wall with stage II pressure ulcer s/p post OR debridement with placement of wound VAC POD #6. Continue with postoperative care as per Dr. Hassan. Input from Dr. Ross appreciated. Continue Vancomycin 1 g IV q. 12 hours and Zosyn 3.375 g IV q. 6 hours. Blood cultures with no grown to date. 2. Dilated cardiomyopathy with an ejection fraction of 20%. Continue Coreg 3.125 mg p.o. b.i.d., Lasix 40 mg p.o. daily, Lisinopril 10 mg p.o. daily and HCTZ 12.5 mg p.o. daily. Continue Coumadin 5 mg p.o. daily with goal INR of 2- 3. The patient will require repeat TTE to reassess LV function and if the EF remains below 35% she will need evaluation for AICD. 3. History of provoked DVT and bilateral PE s/p IVC filter. Continue Coumadin 5 mg p.o. daily with goal INR of 2-3. The patient will require lifelong anticoagulation therapy in the setting of dilated cardiomyopathy with an EF of 20%. 4. Hypertension. Blood pressure controlled. Continue current medications. 5. Iron-deficiency anemia. Labs demonstrate stable H/H at the patient's baseline. Continue to monitor CBC daily. She declines Feosol due to constipation. 6. NIDDM, diet controlled, with most recent A1c of 5.9. Continue to monitor fingersticks before every meal and at bedtime. 7. Anxiety disorder. Continue Xanax 0.25 mg p.o. daily. 8. Morbid obesity. The patient has been counseled on lifestyle modifications and arrangements will be made for followup with outpatient dietitian and workday senior associate. 9. Prophylaxis. GI prophylaxis not indicated as the patient is eating. The patient remains on Coumadin thus DVT prophylaxis not indicated. CODE STATUS: Full code. Jorge Nguyen MD [facility] # [id number] ISMAEL
[2017-12-06] MEDS: Albuterol-Ipratrop 3 mg / 0.5 (3 ml) UD IH SCH ×5 (04:28→21:09)
[2017-12-06] MEDS: Piperacillin/Tazobact 3.375 gm 100 ML IVPB SCH ×4 (05:08→23:42)
[2017-12-06] MEDS: Oxycodone/Acetaminophen 5/325 mg Tab PO PRN ×3 (05:15→23:43)
[2017-12-06] MEDS: Vancomycin 1gm in NS 250ml 1 GM/250 ML BAG IVPB SCH ×2 (05:50→17:47)
[2017-12-06 07:01] LABS: BASO # 0.02 K/mm3 (0.0-2.0); BASO % 0.3 % (0.0-3.0); EOS # 0.2 (0.0-0.7); EOS % 3.5 % (1.5-5.0); GRAN # 4.54 (1.4-6.5); GRAN % 65.3 % (50.0-68.0); HEMOGLOBIN 8.9 g/dL (12.0-16.0); LYMPH # 1.5 (1.2-3.4); LYMPH % 21.7 % (22.0-35.0); MEAN CELL VOLUME 86.1 fl (80.0-105.0); MEAN CORPUSCULAR HEMOGLOBIN 27.5 pg (25.0-35.0); MEAN CORPUSCULAR HGB CONC 31.9 g/dl (31.0-37.0); MONO # 0.6 (0.1-0.6); MONO % 9.2 % (1.0-6.0); RBC 3.24 10^6/uL (3.5-6.1)
[2017-12-06 07:22] LABS: PROTHROMBIN TIME 41.7 SECONDS (9.4-12.5)
[2017-12-06 07:32] LABS: INR 3.53 (0.93-1.08)
[2017-12-06 07:36] LABS: ALB/GLOB RATIO 0.8 (1.1-1.8); ALBUMIN 2.8 g/dL (3.0-4.8); ALT/SGPT 21 U/L (7-56); AST/SGOT 30 U/L (14-36); BLOOD UREA NITROGEN 19 mg/dL (7-21); CALCIUM 8.9 mg/dL (8.4-10.5); GFR AFRICAN-AMERICAN > 60; GFR NON-AFRICAN AMERICAN > 60
[2017-12-06] MEDS: UMECLIDINIUM INH SCH (09:27)
[2017-12-06] MEDS: [UNRECOGNIZED DRUG - OTHER] INH SCH (09:27)
[2017-12-06] MEDS: VILANTEROL INH SCH (09:27)
[2017-12-06] MEDS: FLUTICASONE FUROATE IH SCH (09:28)
--- NOTE | 2017-12-06 11:45 | PN ---
SUBJECTIVE: The patient was seen and examined at bedside on the TCU. No acute events overnight. She remains afebrile and hemodynamically stable. This morning she feels well and reports that she has been actively participating with PT and OT. OBJECTIVE VITAL SIGNS: Temperature 98.3, pulse 84, blood pressure 109/65, respiratory rate 20, oxygen saturation 96% on room air. GENERAL: Morbidly obese woman, lying in bed, in no apparent distress. HEENT: PERRL. EOMI. No scleral icterus. No conjunctival pallor. NECK: Supple with full range of motion. No JVD. LUNGS: Decreased breath sounds at the bases with minimal bibasilar crackles. CARDIOVASCULAR: Regular rate and rhythm. Normal S1 and S2. ABDOMEN: Obese, normoactive bowel sounds. Wound VAC in place with no drainage. EXTREMITIES: Trace lower extremity edema bilaterally. NEUROLOGIC: Awake, alert and oriented x3. No focal motor deficits. LABORATORY DATA: WBC 7, hemoglobin 8.9, hematocrit 28, platelets 364,000. Chemistry reviewed and unremarkable. INR 3.5. ASSESSMENT: The patient is a 57 year old woman with multiple medical comorbidities including morbid obesity who was sent to the ED for evaluation of a nonhealing stage II pressure ulcer to the abdominal wall, after failure of outpatient antibiotics, for consideration of IV antibiotics and continued local wound care who is now s/p OR debridement with placement of wound VAC POD #7. PLAN 1. Cellulitis of the abdominal wall with stage II pressure ulcer s/p OR debridement with placement of wound VAC POD #7. Continue with postoperative care as per Dr. Hassan. Input from Dr. Ross appreciated. Continue Vancomycin 1 g IV every 12 hours and Zosyn 3.375 g IV every 6 hours. Blood cultures remain negative. 2. Dilated cardiomyopathy with an EF of 20%. Continue Coreg 3.125 mg p.o. b.i.d., Lasix 40 mg p.o. daily, Lisinopril 10 mg p.o. daily and HCTZ 12.5 mg p.o. daily. INR supratherapeutic at 3.5. We will hold dose today and resume at lower dose starting tomorrow with goal INR 2-3. The patient will require repeat TTE to reassess LV function and if the EF remains below 35% she will need evaluation for AICD. 3. History of provoked DVT and bilateral PE s/p IVC filter. As above, INR is supratherapeutic at 3.5. Adjust Coumadin dose as above. The patient will likely require life-long anticoagulation therapy in the setting of dilated cardiomyopathy with an EF of 20%. 4. Hypertension, blood pressure controlled. Continue current medications. 5. Iron-deficiency anemia. Labs demonstrate stable H/H at the patient's baseline. Continue to monitor CBC daily. She declines Feosol due to constipation. 6. NIDDM, diet controlled with most recent A1c of 5.9. Continue to monitor fingersticks before every meal and at bedtime. 7. Anxiety disorder. Continue Xanax 0.25 mg p.o. daily. 8. Morbid obesity. The patient has been counseled on lifestyle modifications and arrangements will be made for followup with outpatient dietitian and fish pitcher. 9. Prophylaxis: GI prophylaxis is not indicated as the patient is eating. The patient remains on Coumadin thus DVT prophylaxis is not indicated. CODE STATUS: Full code. Jorge Nguyen MD ISMAEL
[2017-12-07] MEDS: Albuterol-Ipratrop 3 mg / 0.5 (3 ml) UD IH SCH ×6 (00:55→21:36)
[2017-12-07] MEDS: Piperacillin/Tazobact 3.375 gm 100 ML IVPB SCH ×3 (05:28→17:04)
[2017-12-07] MEDS: Vancomycin 1gm in NS 250ml 1 GM/250 ML BAG IVPB SCH ×2 (06:02→17:06)
[2017-12-07 07:01] LABS: BASO # 0.01 K/mm3 (0.0-2.0); BASO % 0.1 % (0.0-3.0); EOS # 0.2 (0.0-0.7); EOS % 3.5 % (1.5-5.0); GRAN # 4.38 (1.4-6.5); HEMOGLOBIN 8.9 g/dL (12.0-16.0); LYMPH # 1.6 (1.2-3.4); LYMPH % 22.8 % (22.0-35.0); MEAN CELL VOLUME 86.1 fl (80.0-105.0); MEAN CORPUSCULAR HEMOGLOBIN 26.9 pg (25.0-35.0); MEAN CORPUSCULAR HGB CONC 31.2 g/dl (31.0-37.0); MEAN PLATELET VOLUME 9.1 fl (7.0-11.0); MONO # 0.7 (0.1-0.6); MONO % 9.6 % (1.0-6.0); RBC 3.31 10^6/uL (3.5-6.1); WHITE BLOOD COUNT 6.9 10^3/ul (4.5-11.0)
[2017-12-07 07:20] LABS: PROTHROMBIN TIME 37.9 SECONDS (9.4-12.5)
[2017-12-07 07:21] LABS: INR 3.22 (0.93-1.08)
[2017-12-07 07:43] LABS: ALB/GLOB RATIO 0.7 (1.1-1.8); ALBUMIN 2.8 g/dL (3.0-4.8); ALT/SGPT 20 U/L (7-56); AST/SGOT 28 U/L (14-36); BLOOD UREA NITROGEN 18 mg/dL (7-21); GFR AFRICAN-AMERICAN > 60; GFR NON-AFRICAN AMERICAN > 60
[2017-12-07] MEDS: Oxycodone/Acetaminophen 5/325 mg Tab PO PRN ×2 (07:54→14:55)
--- NOTE | 2017-12-07 09:19 | CP.PCM.PN ---
Subjective - Date & Time of Evaluation Date of Evaluation: 12/07/17 Time of Evaluation: 09:16 - Subjective Subjective: Surgery Progress Note: Patient seen and examined at bedside. No acute events overnight. Denies fever, chills, wound drainage, nausea, vomiting. Pt resting in chair. States that she has been ambulating with PT without difficulty. Objective - Vital Signs/Intake and Output Vital Signs (last 24 hours): Temp Pulse Resp BP Pulse Ox 97.4 F L 82 18 114/65 94 L 12/07/17 06:00 12/07/17 07:53 12/07/17 06:00 12/07/17 07:53 12/07/17 06:00 - Medications Medications: Current Medications Acetaminophen (Tylenol 325mg Tab) 650 mg PO Q4H PRN; Protocol PRN Reason: Pain, Mild (1-3) Albuterol/Ipratropium (Duoneb 3 Mg/0.5 Mg (3 Ml) Ud) 3 ml IH [id number] [facility] Last Admin: 12/07/17 07:30 Dose: 3 ml Alprazolam (Xanax) 0.25 mg PO DAILY PRN; Protocol PRN Reason: Anxiety Stop: 12/11/17 21:18 Last Admin: 12/07/17 00:16 Dose: 0.25 mg Carvedilol (Coreg) 3.125 mg PO 0800,1800 [facility] PRN Reason: Protocol Last Admin: 12/07/17 07:53 Dose: 3.125 mg Furosemide (Lasix) 40 mg PO DAILY [facility] PRN Reason: Protocol Last Admin: 12/06/17 09:31 Dose: 40 mg Home Med (Home Med) 1 unit INH QAM [facility] Last Admin: 12/06/17 09:27 Dose: 1 unit Hydrochlorothiazide (Microzide) 12.5 mg PO DAILY [facility] PRN Reason: Protocol Last Admin: 12/07/17 07:54 Dose: 12.5 mg Piperacillin Sod/Tazobactam Sod (Zosyn 3.375 In Ns 100ml) 100 mls @ 200 mls/hr IVPB Q6 [facility] Stop: 12/11/17 21:46 Last Admin: 12/07/17 05:28 Dose: 200 mls/hr Vancomycin HCl (Vancomycin 1gm) 1 gm in 250 mls @ 167 mls/hr IVPB 0600,1800 [facility] Last Admin: 12/07/17 06:02 Dose: 167 mls/hr Lisinopril (Zestril) 10 mg PO DAILY [facility] PRN Reason: Protocol Last Admin: 12/06/17 09:32 Dose: 10 mg Fluticasone Furoate [Arnuity Ellipta] ( Home Med) 1 puff IH QAM [facility] Last Admin: 12/06/17 09:28 Dose: 1 puff Oxycodone/Acetaminophen (Percocet 5/325 Mg Tab) 1 tab PO Q4H PRN; Protocol PRN Reason: Pain, moderate (4-7) Stop: 12/07/17 21:18 Last Admin: 12/07/17 07:54 Dose: 1 tab Warfarin Sodium (Coumadin) 4 mg PO 1800 [facility] PRN Reason: Protocol - Labs Labs: 12/07/17 06:30 12/07/17 06:30 PT 37.9 SECONDS (9.4-12.5) H 12/07/17 06:30 INR 3.22 (0.93-1.08) H 12/07/17 06:30 - Constitutional Appears: Non-toxic, No Acute Distress - Head Exam Head Exam: ATRAUMATIC, NORMOCEPHALIC - Eye Exam Eye Exam: EOMI, PERRL. absent: Conjunctival injection, Nystagmus, Scleral icterus Pupil Exam: NORMAL ACCOMODATION, PERRL. absent: Fixed, Irregular, Unequal - ENT Exam ENT Exam: Mucous Membranes Moist - Neck Exam Neck Exam: Full ROM - Respiratory Exam Respiratory Exam: Clear to Ausculation Bilateral - Cardiovascular Exam Cardiovascular Exam: RRR, +S1, +S2. absent: Murmur - GI/Abdominal Exam GI & Abdominal Exam: Soft, Normal Bowel Sounds. absent: Tenderness, Organomegaly Additional comments: Left lower pannus wound 11x6cm, no erythema or drainage, gilbert base - Extremities Exam Extremities Exam: Normal Inspection. absent: Calf Tenderness, Pedal Edema - Back Exam Back Exam: NORMAL INSPECTION - Neurological Exam Neurological Exam: Alert, Awake, Oriented x3 - Psychiatric Exam Psychiatric exam: Normal Affect, Normal Mood - Skin Skin Exam: Dry, Normal Color, Warm Assessment and Plan - Assessment and Plan (Free Text) Assessment: 57F w. chronic Left lower pannus wound s/p debridement POD#8 w. wound vac: -Will change wound vac today. next wound vac change 12/10 -c/w emerson to R lower pannus wound -will discuss with attending
[2017-12-07] MEDS: UMECLIDINIUM INH SCH (10:17)
[2017-12-07] MEDS: VILANTEROL INH SCH (10:17)
[2017-12-07] MEDS: [UNRECOGNIZED DRUG - OTHER] INH SCH (10:17)
[2017-12-07] MEDS: FLUTICASONE FUROATE IH SCH (10:17)
--- NOTE | 2017-12-07 14:39 | CP.PCM.PN ---
Subjective - Date & Time of Evaluation Date of Evaluation: 12/07/17 Time of Evaluation: 09:10 - Subjective Subjective: Less pain in the abdomen, no fevers, for wound vacuum change today. Objective - Vital Signs/Intake and Output Vital Signs (last 24 hours): Temp Pulse Resp BP Pulse Ox 97.4 F L 82 18 114/65 94 L 12/07/17 06:00 12/07/17 07:53 12/07/17 06:00 12/07/17 07:53 12/07/17 06:00 - Medications Medications: Current Medications Acetaminophen (Tylenol 325mg Tab) 650 mg PO Q4H PRN; Protocol PRN Reason: Pain, Mild (1-3) Albuterol/Ipratropium (Duoneb 3 Mg/0.5 Mg (3 Ml) Ud) 3 ml IH [id number] [facility] Last Admin: 12/07/17 07:30 Dose: 3 ml Alprazolam (Xanax) 0.25 mg PO DAILY PRN; Protocol PRN Reason: Anxiety Stop: 12/11/17 21:18 Last Admin: 12/07/17 00:16 Dose: 0.25 mg Carvedilol (Coreg) 3.125 mg PO 0800,1800 [facility] PRN Reason: Protocol Last Admin: 12/07/17 07:53 Dose: 3.125 mg Furosemide (Lasix) 40 mg PO DAILY [facility] PRN Reason: Protocol Last Admin: 12/06/17 09:31 Dose: 40 mg Home Med (Home Med) 1 unit INH QAM [facility] Last Admin: 12/06/17 09:27 Dose: 1 unit Hydrochlorothiazide (Microzide) 12.5 mg PO DAILY [facility] PRN Reason: Protocol Last Admin: 12/07/17 07:54 Dose: 12.5 mg Piperacillin Sod/Tazobactam Sod (Zosyn 3.375 In Ns 100ml) 100 mls @ 200 mls/hr IVPB Q6 [facility] Stop: 12/11/17 21:46 Last Admin: 12/07/17 05:28 Dose: 200 mls/hr Vancomycin HCl (Vancomycin 1gm) 1 gm in 250 mls @ 167 mls/hr IVPB 0600,1800 [facility] Last Admin: 12/07/17 06:02 Dose: 167 mls/hr Lisinopril (Zestril) 10 mg PO DAILY [facility] PRN Reason: Protocol Last Admin: 12/06/17 09:32 Dose: 10 mg Fluticasone Furoate [Arnuity Ellipta] ( Home Med) 1 puff IH QAM [facility] Last Admin: 12/06/17 09:28 Dose: 1 puff Oxycodone/Acetaminophen (Percocet 5/325 Mg Tab) 1 tab PO Q4H PRN; Protocol PRN Reason: Pain, moderate (4-7) Stop: 12/07/17 21:18 Last Admin: 12/07/17 07:54 Dose: 1 tab Warfarin Sodium (Coumadin) 4 mg PO 1800 [facility] PRN Reason: Protocol - Labs Labs: 12/07/17 06:30 12/07/17 06:30 PT 37.9 SECONDS (9.4-12.5) H 12/07/17 06:30 INR 3.22 (0.93-1.08) H 12/07/17 06:30 - Constitutional Appears: Chronically Ill - Respiratory Exam Respiratory Exam: Decreased Breath Sounds - Cardiovascular Exam Cardiovascular Exam: +S1, +S2 - GI/Abdominal Exam GI & Abdominal Exam: Soft. absent: Tenderness Additional comments: wound vacuum in place Assessment and Plan - Assessment and Plan (Free Text) Plan: Assessment abdominal wound infection S/P debridement and wound vacuum placement POD #8 history of acute pulmonary embolism, on anticoagulation HTN DM morbid obesity with BMI 44 Plan continue Vancomycin and Zosyn day 10 to complete 7-10 days of antibiotics - for change of wound vacuum today keep legs elevated
[2017-12-07] MEDS ORDERED: Oxycodone/Acetaminophen 10/325 mg Tab PO STA (21:35)
--- NOTE | 2017-12-07 21:35 | CP.PCM.PN ---
Subjective - Date & Time of Evaluation Date of Evaluation: 12/07/17 Time of Evaluation: 21:34 - Subjective Subjective: Patient was seen at bedside. she complained of pain in abdominal wall wound area, had wound vac replaced earlier. As per nurse, order of percocet was dropped off form [facility]. Has no other complaints. Medical record was reviewed. This 57 year old white woman was admitted for non healing stage II ulcer . Has PMH of HTN, NIDDM, iron deficiency anemia, anxiety, PE/DVT, IVC filter placement. Objective - Vital Signs/Intake and Output Vital Signs (last 24 hours): Temp Pulse Resp BP Pulse Ox 98 F 81 18 108/62 96 12/07/17 16:25 12/07/17 17:03 12/07/17 16:25 12/07/17 17:03 12/07/17 16:25 - Medications Medications: Current Medications Acetaminophen (Tylenol 325mg Tab) 650 mg PO Q4H PRN; Protocol PRN Reason: Pain, Mild (1-3) Albuterol/Ipratropium (Duoneb 3 Mg/0.5 Mg (3 Ml) Ud) 3 ml IH [id number] [facility] Last Admin: 12/07/17 15:05 Dose: 3 ml Alprazolam (Xanax) 0.25 mg PO DAILY PRN; Protocol PRN Reason: Anxiety Stop: 12/11/17 21:18 Last Admin: 12/07/17 00:16 Dose: 0.25 mg Carvedilol (Coreg) 3.125 mg PO 0800,1800 [facility] PRN Reason: Protocol Last Admin: 12/07/17 17:03 Dose: 3.125 mg Furosemide (Lasix) 40 mg PO DAILY [facility] PRN Reason: Protocol Last Admin: 12/07/17 10:18 Dose: 40 mg Home Med (Home Med) 1 unit INH QAM [facility] Last Admin: 12/07/17 10:17 Dose: 1 unit Hydrochlorothiazide (Microzide) 12.5 mg PO DAILY [facility] PRN Reason: Protocol Last Admin: 12/07/17 10:18 Dose: Not Given Piperacillin Sod/Tazobactam Sod (Zosyn 3.375 In Ns 100ml) 100 mls @ 200 mls/hr IVPB Q6 [facility] Stop: 12/11/17 21:46 Last Admin: 12/07/17 17:04 Dose: 200 mls/hr Vancomycin HCl (Vancomycin 1gm) 1 gm in 250 mls @ 167 mls/hr IVPB 0600,1800 [facility] Last Admin: 12/07/17 17:06 Dose: 167 mls/hr Lisinopril (Zestril) 10 mg PO DAILY [facility] PRN Reason: Protocol Last Admin: 12/07/17 10:19 Dose: 10 mg Fluticasone Furoate [Arnuity Ellipta] ( Home Med) 1 puff IH QAM [facility] Last Admin: 12/07/17 10:17 Dose: 1 puff Warfarin Sodium (Coumadin) 4 mg PO 1800 [facility] PRN Reason: Protocol - Labs Labs: 12/07/17 06:30 12/07/17 06:30 PT 37.9 SECONDS (9.4-12.5) H 12/07/17 06:30 INR 3.22 (0.93-1.08) H 12/07/17 06:30 Most Recent Lab Values WBC 6.9 10^3/ul (4.5-11.0) 12/07/17 06:30 RBC 3.31 10^6/uL (3.5-6.1) L 12/07/17 06:30 Hgb 8.9 g/dL (12.0-16.0) L 12/07/17 06:30 Hct 28.5 % (36.0-48.0) L 12/07/17 06:30 MCV 86.1 fl (80.0-105.0) 12/07/17 06:30 MCH 26.9 pg (25.0-35.0) 12/07/17 06:30 MCHC 31.2 g/dl (31.0-37.0) 12/07/17 06:30 RDW 17.0 % (11.5-14.5) H 12/07/17 06:30 Plt Count 371 10^3/uL (120.0-450.0) 12/07/17 06:30 MPV 9.1 fl (7.0-11.0) 12/07/17 06:30 Gran % 64.0 % (50.0-68.0) 12/07/17 06:30 Lymph % (Auto) 22.8 % (22.0-35.0) 12/07/17 06:30 Calvert % (Auto) 9.6 % (1.0-6.0) H 12/07/17 06:30 Eos % (Auto) 3.5 % (1.5-5.0) 12/07/17 06:30 Baso % (Auto) 0.1 % (0.0-3.0) 12/07/17 06:30 Gran # 4.38 (1.4-6.5) 12/07/17 06:30 Lymph # (Auto) 1.6 (1.2-3.4) 12/07/17 06:30 Calvert # (Auto) 0.7 (0.1-0.6) H 12/07/17 06:30 Eos # (Auto) 0.2 (0.0-0.7) 12/07/17 06:30 Baso # (Auto) 0.01 K/mm3 (0.0-2.0) 12/07/17 06:30 PT 37.9 SECONDS (9.4-12.5) H 12/07/17 06:30 INR 3.22 (0.93-1.08) H 12/07/17 06:30 Sodium 139 mmol/L (132-148) 12/07/17 06:30 Potassium 3.6 mmol/L (3.6-5.0) 12/07/17 06:30 Chloride 103 mmol/L (98-107) 12/07/17 06:30 Carbon Dioxide 29 mmol/L (21-33) 12/07/17 06:30 Anion Gap 11 (10-20) 12/07/17 06:30 BUN 18 mg/dL (7-21) 12/07/17 06:30 Creatinine 0.8 mg/dl (0.7-1.2) 12/07/17 06:30 Est GFR ( Amer) > 60 12/07/17 06:30 Est GFR (Non-Af Amer) > 60 12/07/17 06:30 POC Glucose (mg/dL) 157 mg/dL (65-110) H 12/08/17 04:56 Random Glucose 133 mg/dL (70-110) H 12/07/17 06:30 Calcium 9.0 mg/dL (8.4-10.5) 12/07/17 06:30 Total Bilirubin 0.5 mg/dL (0.2-1.3) 12/07/17 06:30 AST 28 U/L (14-36) 12/07/17 06:30 ALT 20 U/L (7-56) 12/07/17 06:30 Alkaline Phosphatase 110 U/L (38-126) 12/07/17 06:30 Total Protein 6.6 g/dL (5.8-8.3) 12/07/17 06:30 Albumin 2.8 g/dL (3.0-4.8) L 12/07/17 06:30 Globulin 3.8 gm/dL 12/07/17 06:30 Albumin/Globulin Ratio 0.7 (1.1-1.8) L 12/07/17 06:30 - Constitutional Appears: Well, No Acute Distress - Head Exam Head Exam: ATRAUMATIC, NORMAL INSPECTION, NORMOCEPHALIC - Eye Exam Eye Exam: Normal appearance - ENT Exam ENT Exam: Normal External Ear Exam - Neck Exam Neck Exam: Normal Inspection - Respiratory Exam Respiratory Exam: NORMAL BREATHING PATTERN - Cardiovascular Exam Cardiovascular Exam: absent: JVD - GI/Abdominal Exam GI & Abdominal Exam: absent: Distended - Rectal Exam Rectal Exam: Deferred - Exam Additional comments: Deferred. - Extremities Exam Extremities Exam: Normal Inspection - Back Exam Back Exam: NORMAL INSPECTION - Neurological Exam Neurological Exam: Alert, Awake, Oriented x3 - Psychiatric Exam Psychiatric exam: Normal Affect, Normal Mood - Skin Skin Exam: Normal Color Assessment and Plan - Assessment and Plan (Free Text) Assessment: Abdominal wall pain. HTN. NIDDM. Iron deficiency anemia. Anxiety. History DVT. History PE. History IVC filter placement. Plan: Percocet 325/10 I PO x 1. Continue present management.
--- NOTE | 2017-12-08 00:26 | PN ---
DATE: SUBJECTIVE: The patient is in room 327, bed 1. She really has no complaints other than some swelling of the legs with the . There have been no acute events overnight. PHYSICAL EXAMINATION VITAL SIGNS: Stable. The temperature of 97.8, pulse rate of 93, blood pressure 129/63, respiratory rate of 18 with an O2 saturation of 99% on room air. HEENT: PERRLA, EOMI. No icterus. NECK: Supple with full range of motion. LUNGS: Clear bilaterally. HEART: With regular rate and rhythm. ABDOMEN: Benign. NEUROLOGIC: The patient is intact. EXTREMITIES: Show 1+ ankle edema. LABORATORY DATA: Lab value show a hemoglobin and hematocrit of 8.9 and 28.5, which is essentially stable. SMA-23 is normal. Glucose of 133. We will continue patient's current rehab. Obi Nguyen MD
[2017-12-08] MEDS: Albuterol-Ipratrop 3 mg / 0.5 (3 ml) UD IH SCH ×7 (00:45→23:19)
[2017-12-08] MEDS: Piperacillin/Tazobact 3.375 gm 100 ML IVPB SCH ×5 (05:45→23:11)
[2017-12-08] MEDS: Vancomycin 1gm in NS 250ml 1 GM/250 ML BAG IVPB SCH ×2 (05:46→17:33)
[2017-12-08] MEDS ORDERED: Oxycodone/Acetaminophen 5/325 mg Tab PO STA (06:54)
[2017-12-08 07:21] LABS: BASO # 0.03 K/mm3 (0.0-2.0); BASO % 0.4 % (0.0-3.0); EOS # 0.3 (0.0-0.7); EOS % 3.7 % (1.5-5.0); GRAN % 63.9 % (50.0-68.0); HEMOGLOBIN 9.5 g/dL (12.0-16.0); LYMPH # 1.8 (1.2-3.4); LYMPH % 22.9 % (22.0-35.0); MEAN CELL VOLUME 86.6 fl (80.0-105.0); MEAN CORPUSCULAR HGB CONC 31.1 g/dl (31.0-37.0); MEAN PLATELET VOLUME 9.2 fl (7.0-11.0); MONO # 0.7 (0.1-0.6); MONO % 9.1 % (1.0-6.0); RBC 3.52 10^6/uL (3.5-6.1); RED CELL DISTRIBUTION WIDTH 17.2 % (11.5-14.5); WHITE BLOOD COUNT 7.8 10^3/ul (4.5-11.0)
--- NOTE | 2017-12-08 07:21 | CP.PCM.PN ---
Subjective - Date & Time of Evaluation Date of Evaluation: 12/08/17 Time of Evaluation: 07:19 - Subjective Subjective: Surgery Pt s&e. WOund vac changed 12/07. TOlerated it well Objective - Vital Signs/Intake and Output Vital Signs (last 24 hours): Temp Pulse Resp BP Pulse Ox 98 F 81 18 108/62 96 12/07/17 16:25 12/07/17 17:03 12/07/17 16:25 12/07/17 17:03 12/07/17 16:25 - Medications Medications: Current Medications Acetaminophen (Tylenol 325mg Tab) 650 mg PO Q4H PRN; Protocol PRN Reason: Pain, Mild (1-3) Albuterol/Ipratropium (Duoneb 3 Mg/0.5 Mg (3 Ml) Ud) 3 ml IH [id number] [facility] Last Admin: 12/08/17 07:11 Dose: 3 ml Alprazolam (Xanax) 0.25 mg PO DAILY PRN; Protocol PRN Reason: Anxiety Stop: 12/11/17 21:18 Last Admin: 12/08/17 00:01 Dose: 0.25 mg Carvedilol (Coreg) 3.125 mg PO 0800,1800 [facility] PRN Reason: Protocol Last Admin: 12/07/17 17:03 Dose: 3.125 mg Furosemide (Lasix) 40 mg PO DAILY [facility] PRN Reason: Protocol Last Admin: 12/07/17 10:18 Dose: 40 mg Home Med (Home Med) 1 unit INH QAM [facility] Last Admin: 12/07/17 10:17 Dose: 1 unit Hydrochlorothiazide (Microzide) 12.5 mg PO DAILY [facility] PRN Reason: Protocol Last Admin: 12/07/17 10:18 Dose: Not Given Piperacillin Sod/Tazobactam Sod (Zosyn 3.375 In Ns 100ml) 100 mls @ 200 mls/hr IVPB Q6 [facility] Stop: 12/11/17 21:46 Last Admin: 12/08/17 05:45 Dose: 200 mls/hr Vancomycin HCl (Vancomycin 1gm) 1 gm in 250 mls @ 167 mls/hr IVPB 0600,1800 [facility] Last Admin: 12/08/17 05:46 Dose: 167 mls/hr Lisinopril (Zestril) 10 mg PO DAILY [facility] PRN Reason: Protocol Last Admin: 12/07/17 10:19 Dose: 10 mg Fluticasone Furoate [Arnuity Ellipta] ( Home Med) 1 puff IH QAM [facility] Last Admin: 12/07/17 10:17 Dose: 1 puff Warfarin Sodium (Coumadin) 4 mg PO 1800 [facility] PRN Reason: Protocol - Labs Labs: 12/07/17 06:30 12/07/17 06:30 PT 37.9 SECONDS (9.4-12.5) H 12/07/17 06:30 INR 3.22 (0.93-1.08) H 12/07/17 06:30 - Constitutional Appears: No Acute Distress - Head Exam Head Exam: ATRAUMATIC, NORMAL INSPECTION, NORMOCEPHALIC - Eye Exam Eye Exam: EOMI, Normal appearance, PERRL Pupil Exam: NORMAL ACCOMODATION, PERRL - ENT Exam ENT Exam: Mucous Membranes Moist, Normal Exam - Neck Exam Neck Exam: Full ROM, Normal Inspection. absent: Lymphadenopathy - Respiratory Exam Respiratory Exam: Clear to Ausculation Bilateral, NORMAL BREATHING PATTERN - Cardiovascular Exam Cardiovascular Exam: REGULAR RHYTHM, +S1, +S2. absent: Murmur - GI/Abdominal Exam GI & Abdominal Exam: Soft, Tenderness, Normal Bowel Sounds. absent: Distended, Firm, Guarding, Rigid Additional comments: Large pannus. WOund vac in place. no leak . wound 10x5cm. - Extremities Exam Extremities Exam: Full ROM, Normal Capillary Refill, Normal Inspection. absent : Joint Swelling, Pedal Edema - Back Exam Back Exam: NORMAL INSPECTION - Neurological Exam Neurological Exam: Alert, Awake, CN II-XII Intact, Normal Gait, Oriented x3 - Psychiatric Exam Psychiatric exam: Normal Affect, Normal Mood - Skin Skin Exam: Dry, Erythema, Intact, Warm Assessment and Plan - Assessment and Plan (Free Text) Assessment: s/p wound debrident for panniculitis -WOund vac change in 3-4 days. Next one on 12/11 -Home wound vac after DC from TCU Will HETAL smith
[2017-12-08 07:28] LABS: INR 2.71 (0.93-1.08); PROTHROMBIN TIME 31.8 SECONDS (9.4-12.5)
[2017-12-08 07:40] LABS: ALB/GLOB RATIO 0.8 (1.1-1.8); ALBUMIN 3.2 g/dL (3.0-4.8); ALT/SGPT 18 U/L (7-56); AST/SGOT 27 U/L (14-36); BLOOD UREA NITROGEN 19 mg/dL (7-21); CALCIUM 9.4 mg/dL (8.4-10.5); GFR AFRICAN-AMERICAN > 60; GFR NON-AFRICAN AMERICAN > 60
--- NOTE | 2017-12-08 09:21 | PN ---
SUBJECTIVE: The patient was seen and examined at bedside on the TCU. No acute events overnight. She remains afebrile and hemodynamically stable. She is participating with PT and OT and is doing well and this morning offers no complaints. OBJECTIVE: VITAL SIGNS: Temperature 98, pulse 80, blood pressure 129/62, respiratory rate 18, oxygen saturation 96% on room air. GENERAL: Morbidly obese woman, lying in bed, in no apparent distress. HEENT: PERRL, EOMI. No scleral icterus. No conjunctival pallor. NECK: Supple with full range of motion. No JVD. LUNGS: Decreased breath sounds at the bases with minimal bibasilar crackles. CARDIOVASCULAR: Regular rate and rhythm. Normal S1 and S2. ABDOMEN: Obese. Normoactive bowel sounds. Wound VAC in place with no drainage. EXTREMITIES: Trace lower extremity edema bilaterally. NEUROLOGIC: Awake, alert and oriented x3. No focal motor deficits. LABORATORY DATA: WBC 7.8, hemoglobin 9.5, hematocrit 30, platelets 445. Chemistry reviewed and unremarkable. INR 2.71. ASSESSMENT: The patient is a 57 year old woman with multiple medical comorbidities including morbid obesity who was sent to the ED for evaluation of a stage II nonhealing pressure ulcer to the abdominal wall, after failure of outpatient antibiotics, for consideration of IV antibiotics and continued local wound care who is now s/p OR debridement with placement of wound VAC POD #9. PLAN: 1. Cellulitis of the abdominal wall with stage II pressure ulcer s/p OR debridement with placement of wound VAC POD #9. Continue with postoperative care as per Dr. Hassan. Input from Dr. Gambino appreciated. Continue with current antimicrobials as per Dr. Gambino. 2. Dilated cardiomyopathy with an EF of 20%. Continue Coreg 3.125 mg p.o. b.i.d., Lasix 40 mg p.o. daily, Lisinopril 10 mg p.o. daily and HCTZ 12.5 mg p.o. daily. INR therapeutic at 2.71. Continue Coumadin 3.5 mg p.o. daily with goal INR 2-3. The patient will require a repeat TTE to reassess LV function and if the EF remains below 35%, she will need evaluation for AICD. 3. 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 Continue Coumadin 3.5 mg p.o. daily with goal INR 2-3. The patient will likely require lifelong anticoagulation therapy in the setting of dilated cardiomyopathy with an EF of 20%. 4. Hypertension, blood pressure controlled. Continue current medications. 5. Iron-deficiency anemia. Labs demonstrate stable H/H at baseline. She declines Feosol due to constipation. 6. NIDDM, diet controlled, with most recent A1c of 5.9. Continue to monitor fingersticks before every meal and at bedtime. 7. Anxiety disorder. Continue Xanax 0.25 mg p.o. daily. 8. Morbid obesity. The patient has been counseled on lifestyle modifications and arrangements will be made for outpatient dietary and vest finisher followup. 9. Prophylaxis. GI prophylaxis is not indicated as the patient is eating. The patient remains on Coumadin thus DVT prophylaxis is not indicated. CODE STATUS: Full code. Jorge Nguyen MD MTDDarío
[2017-12-08] MEDS: FLUTICASONE FUROATE IH SCH (10:00)
[2017-12-08] MEDS: VILANTEROL INH SCH (10:45)
[2017-12-08] MEDS: UMECLIDINIUM INH SCH (10:45)
[2017-12-08] MEDS: [UNRECOGNIZED DRUG - OTHER] INH SCH (10:45)
[2017-12-08] MEDS: Oxycodone/Acetaminophen 5/325 mg Tab PO PRN (17:40)
--- NOTE | 2017-12-08 20:17 | PN ---
DATE: 12/08/2017 LOCATION: Patient was seen in room 327. SUBJECTIVE: No fevers, no chills, no nausea. PHYSICAL EXAMINATION: VITAL SIGNS: Temperature is 97, blood pressure is 119/80, respiratory rate of 18, heart rate of 92. HEENT: Unremarkable. NECK: Supple. LUNGS: Decreased breath sounds. HEART: Normal S1, S2. ABDOMEN: Soft. LABORATORY DATA: Reveals a white count of 7.8, hemoglobin of 9, platelets of 445. Chemistries reveal a BUN of 19, creatinine of 0.8. Microbiology is noted. Dr. Jorge Nguyen's note is reviewed from today. Dr. Hassan's note is reviewed. ASSESSMENT AND PLAN: A 57-year-old female seen in transitional care in room 327, with abdominal wound infection status post debridement and wound vacuum placement, post procedure day number 9, history of acute pulmonary emboli, anticoagulation, hypertension, diabetes, morbid obesity, BMI of 44. Completed her 10 days of vancomycin and Zosyn and today is day#10. Dr. Ross's note from yesterday is reviewed. antibiotic application last dose. We will follow with you. Brock Gambino MD
[2017-12-09] MEDS: Albuterol-Ipratrop 3 mg / 0.5 (3 ml) UD IH SCH ×6 (04:04→23:55)
[2017-12-09] MEDS: Piperacillin/Tazobact 3.375 gm 100 ML IVPB SCH ×4 (05:15→23:18)
[2017-12-09] MEDS: Vancomycin 1gm in NS 250ml 1 GM/250 ML BAG IVPB SCH ×2 (05:15→17:14)
[2017-12-09] MEDS: Oxycodone/Acetaminophen 5/325 mg Tab PO PRN ×3 (05:18→22:08)
[2017-12-09 07:15] LABS: BASO # 0.03 K/mm3 (0.0-2.0); BASO % 0.4 % (0.0-3.0); EOS # 0.3 (0.0-0.7); EOS % 3.1 % (1.5-5.0); GRAN # 5.6 (1.4-6.5); GRAN % 70.3 % (50.0-68.0); LYMPH # 1.3 (1.2-3.4); LYMPH % 16.8 % (22.0-35.0); MEAN CELL VOLUME 86.3 fl (80.0-105.0); MEAN CORPUSCULAR HEMOGLOBIN 26.8 pg (25.0-35.0); MEAN PLATELET VOLUME 9.2 fl (7.0-11.0); MONO # 0.8 (0.1-0.6); MONO % 9.4 % (1.0-6.0); RBC 3.36 10^6/uL (3.5-6.1); RED CELL DISTRIBUTION WIDTH 17.1 % (11.5-14.5)
[2017-12-09 07:25] LABS: INR 2.37 (0.93-1.08); PROTHROMBIN TIME 27.7 SECONDS (9.4-12.5)
[2017-12-09 07:33] LABS: ALB/GLOB RATIO 0.7 (1.1-1.8); ALBUMIN 2.9 g/dL (3.0-4.8); ALT/SGPT 22 U/L (7-56); AST/SGOT 21 U/L (14-36); BLOOD UREA NITROGEN 19 mg/dL (7-21); CALCIUM 8.9 mg/dL (8.4-10.5); GFR AFRICAN-AMERICAN > 60; GFR NON-AFRICAN AMERICAN > 60
[2017-12-09] MEDS: [UNRECOGNIZED DRUG - OTHER] INH SCH (09:24)
[2017-12-09] MEDS: VILANTEROL INH SCH (09:24)
[2017-12-09] MEDS: UMECLIDINIUM INH SCH (09:24)
[2017-12-09] MEDS: FLUTICASONE FUROATE IH SCH (09:27)
--- NOTE | 2017-12-09 11:46 | PN ---
DATE: 12/09/2017 SUBJECTIVE: The patient is in bed in no acute distress, nontoxic. PHYSICAL EXAMINATION VITAL SIGNS: Temperature is 98, blood pressure is 120/70, respiratory rate of 16. HEENT: Unremarkable. NECK: Supple. LUNGS: Have decreased breath sounds. HEART: Normal S1, S2. ABDOMEN: Soft, nontender. LABORATORY DATA: Reveals the patient's white count is 8, hemoglobin of 9, platelets of 402. BUN of 19, creatinine of 0.8. Microbiology is noted and review of orders reveals the patient to be on IV vancomycin and Zosyn. ASSESSMENT AND PLAN: A 57-year-old female seen in Transitional Care, room 327 this morning, she is doing well. Abdominal wound infection status post debridement and a wound VAC placement, postprocedure day #10; history of acute pulmonary emboli, anticoagulation; hypertension; diabetes; morbid obesity, body mass index of 44, completed 10 days of vancomycin, yesterday was 10 days and today is day #11 of vancomycin and Zosyn and we will discontinue the antibiotics in the next 24 hours. Brock Gambino MD
--- NOTE | 2017-12-09 14:54 | PN ---
SUBJECTIVE: The patient was seen and examined at bedside on the TCU. No acute events overnight. She remains afebrile and hemodynamically stable. She is participating with PT and OT and is doing well and this morning offers no complaints. PHYSICAL EXAMINATION VITAL SIGNS: Temperature 98.6, pulse 82, blood pressure 136/78, respiratory rate 18, oxygen saturation 99% on room air. GENERAL: Morbidly obese woman, lying in bed, in no apparent distress. HEENT: PERRL, EOMI. No scleral icterus. No conjunctival pallor. NECK: Supple with full range of motion. No JVD. LUNGS: Decreased breath sounds at the bases. CARDIOVASCULAR: Regular rate and rhythm. Normal S1 and S2. ABDOMEN: Obese. Normoactive bowel sounds. Wound VAC in place with no drainage. EXTREMITIES: Trace lower extremity edema bilaterally. NEUROLOGIC: Awake, alert and oriented x3. No focal motor deficits. LABORATORY DATA: WBC 8, hemoglobin 9, hematocrit 29, platelets 402. Chemistry reviewed and unremarkable. INR 2.37. ASSESSMENT: The patient is a 57 year old woman with multiple medical comorbidities including morbid obesity who was sent to the ED for evaluation of a stage II nonhealing pressure ulcer to the abdominal wall, after failure of outpatient antibiotics, for consideration of IV antibiotics and continued local wound care who is now s/p OR debridement with placement of wound VAC POD #10. PLAN: 1. Cellulitis of the abdominal wall with stage II pressure ulcer s/p OR debridement with placement of wound VAC POD #10. Continue with postoperative care as per Dr. Hassan. Input from Dr. Gambino appreciated. Continue with current antimicrobials as per Dr. Gambino. 2. Dilated cardiomyopathy with an EF of 20%. Continue Coreg 3.125 mg p.o. b.i.d., Lasix 40 mg p.o. daily, Lisinopril 10 mg p.o. daily and HCTZ 12.5 mg p.o. daily. INR therapeutic at 2.37. Continue Coumadin 3.5 mg p.o. daily with goal INR of 2-3. The patient will require a repeat TTE to reassess LV function and if the EF remains below 35%, she will need evaluation for AICD. 3. 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 Continue Coumadin 3.5 mg p.o. daily with goal INR of 2-3. The patient will likely require lifelong anticoagulation therapy in the setting of dilated cardiomyopathy with an EF of 20%. 4. Hypertension. Blood pressure controlled. Continue current medications. 5. Iron-deficiency anemia. Labs demonstrate stable H/H at the patient's baseline. She declines Feosol due to constipation. 6. NIDDM, diet controlled, with most recent A1c of 5.9. Continue to monitor fingerstick before every meals and at bedtime. 7. Anxiety disorder. Continue Xanax 0.25 mg p.o. daily. 8. Morbid obesity. The patient has been counseled on lifestyle modifications and arrangements will be made for outpatient dietary and nutritional followup. 9. Prophylaxis. GI prophylaxis is not indicated as the patient is eating. The patient remains on Coumadin thus DVT prophylaxis is not indicated. CODE STATUS: Full code. Jorge Nguyen MD ISMAEL
[2017-12-09] MEDS: Silver Sulfadiazine 1% Cream (25 gm) TP SCH (19:53)
[2017-12-10] MEDS: Vancomycin 1gm in NS 250ml 1 GM/250 ML BAG IVPB SCH ×2 (05:13→22:05)
[2017-12-10] MEDS: Piperacillin/Tazobact 3.375 gm 100 ML IVPB SCH ×3 (05:13→18:23)
[2017-12-10 06:07] LABS: BASO # 0.03 K/mm3 (0.0-2.0); BASO % 0.4 % (0.0-3.0); EOS # 0.3 (0.0-0.7); EOS % 4.5 % (1.5-5.0); GRAN # 4.42 (1.4-6.5); GRAN % 62.8 % (50.0-68.0); LYMPH # 1.7 (1.2-3.4); LYMPH % 23.5 % (22.0-35.0); MEAN CELL VOLUME 86.4 fl (80.0-105.0); MEAN CORPUSCULAR HEMOGLOBIN 27.1 pg (25.0-35.0); MEAN CORPUSCULAR HGB CONC 31.4 g/dl (31.0-37.0); MONO # 0.6 (0.1-0.6); MONO % 8.8 % (1.0-6.0); RBC 3.32 10^6/uL (3.5-6.1); RED CELL DISTRIBUTION WIDTH 17.2 % (11.5-14.5); WHITE BLOOD COUNT 7.1 10^3/ul (4.5-11.0)
[2017-12-10 06:19] LABS: INR 2.3 (0.93-1.08); PROTHROMBIN TIME 26.9 SECONDS (9.4-12.5)
[2017-12-10] MEDS: Oxycodone/Acetaminophen 5/325 mg Tab PO PRN ×2 (06:42→15:49)
[2017-12-10 06:43] LABS: ALB/GLOB RATIO 0.7 (1.1-1.8); ALBUMIN 2.9 g/dL (3.0-4.8); ALT/SGPT 20 U/L (7-56); AST/SGOT 32 U/L (14-36); BLOOD UREA NITROGEN 19 mg/dL (7-21); CALCIUM 9.2 mg/dL (8.4-10.5); GFR AFRICAN-AMERICAN > 60; GFR NON-AFRICAN AMERICAN > 60
[2017-12-10] MEDS: Albuterol-Ipratrop 3 mg / 0.5 (3 ml) UD IH SCH ×5 (07:10→23:29)
[2017-12-10] MEDS: FLUTICASONE FUROATE IH SCH (10:20)
[2017-12-10] MEDS: Silver Sulfadiazine 1% Cream (25 gm) TP SCH ×2 (10:21→18:23)
[2017-12-10] MEDS: [UNRECOGNIZED DRUG - OTHER] INH SCH (10:21)
[2017-12-10] MEDS: VILANTEROL INH SCH (10:21)
[2017-12-10] MEDS: UMECLIDINIUM INH SCH (10:21)
--- NOTE | 2017-12-10 13:20 | PN ---
SUBJECTIVE: The patient was seen and examined at bedside on the TCU. No acute events overnight. She remains afebrile and hemodynamically stable. She continues to participate with PT and OT and this morning offers no complaints. OBJECTIVE: VITAL SIGNS: Temperature 97.8, pulse 82, blood pressure 126/76, respiratory rate is 18, oxygen saturation is 97% on room air. GENERAL: Morbidly obese woman lying in bed in no apparent distress. HEENT: PERRL, EOMI. No scleral icterus. No conjunctival pallor. NECK: Supple with full range of motion. No JVD. LUNGS: Decreased breath sounds at the bases. CARDIOVASCULAR: Regular rate and rhythm. Normal S1 and S2. ABDOMEN: Obese. Normoactive bowel sounds. Wound VAC in place with no drainage. EXTREMITIES: Trace lower extremity edema bilaterally. NEUROLOGIC: Awake, alert, and oriented x3. No focal motor deficits. LABORATORY DATA: WBC 7.1, hemoglobin 9, hematocrit 28, platelets 395. Chemistry reviewed and unremarkable. INR 2.3. ASSESSMENT: The patient is a 57 year old woman with multiple medical comorbidities including morbid obesity who was sent to the ED for evaluation of a stage II nonhealing pressure ulcer to the abdominal wall, after failure of outpatient antibiotics, for consideration of IV antibiotics and continued local wound care who is now s/p OR debridement with placement of a wound VAC POD #11. PLAN: 1. Cellulitis of the abdominal wall with stage II pressure ulcer s/p OR debridement with placement of wound VAC POD #11. Continue with postoperative care as per Dr. Hassan. Input from Dr. Gambino appreciated. Continue with current antimicrobials as per Dr. Gambino. 2. Dilated cardiomyopathy with an EF of 20%. Continue Coreg 3.125 mg p.o. b.i.d., Lasix 40 mg p.o. daily, Lisinopril 10 mg p.o. daily, and HCTZ 12.5 mg p.o. daily. INR therapeutic at 2.3. Continue Coumadin 3.5 mg p.o. daily with goal INR of 2-3. The patient will require a repeat TTE to reassess LV function and if the EF remains below 35%, she will need evaluation for AICD. 3. 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 Continue Coumadin 3.5 mg p.o. daily with goal INR of 2-3. She will likely require lifelong anticoagulation therapy in the setting of dilated cardiomyopathy with an EF of 20%. 4. Hypertension. Blood pressure controlled. Continue current medications. 5. Iron-deficiency anemia. Labs demonstrate stable H/H at the patient's baseline. She declines Feosol due to constipation. 6. NIDDM, diet controlled, with most recent A1c of 5.9. Continue to monitor fingerstick before every meals and at bedtime. 7. Anxiety disorder. Continue Xanax 0.25 mg p.o. daily. 8. Morbid obesity. The patient has been counseled on lifestyle modifications and arrangements will be made for outpatient dietitian and tree cutter followup. 9. Prophylaxis. GI prophylaxis is not indicated as the patient is eating. The patient remains on Coumadin thus DVT prophylaxis is not indicated. CODE STATUS: Full code. Jorge Nguyen MD MTDDarío
--- NOTE | 2017-12-10 15:17 | CP.PCM.PN ---
Subjective - Date & Time of Evaluation Date of Evaluation: 12/10/17 Time of Evaluation: 11:05 - Subjective Subjective: Feeling better, less pain in the abdomen, no fevers, not in distress. Objective - Vital Signs/Intake and Output Vital Signs (last 24 hours): Temp Pulse Resp BP Pulse Ox 97.8 F 82 16 126/76 97 12/09/17 10:00 12/10/17 08:01 12/09/17 10:00 12/10/17 08:01 12/09/17 10:00 - Medications Medications: Current Medications Acetaminophen (Tylenol 325mg Tab) 650 mg PO Q4H PRN; Protocol PRN Reason: Pain, Mild (1-3) Albuterol/Ipratropium (Duoneb 3 Mg/0.5 Mg (3 Ml) Ud) 3 ml IH [id number] [facility] Last Admin: 12/10/17 07:10 Dose: 3 ml Alprazolam (Xanax) 0.25 mg PO DAILY PRN; Protocol PRN Reason: Anxiety Stop: 12/11/17 21:18 Last Admin: 12/09/17 23:15 Dose: 0.25 mg Carvedilol (Coreg) 3.125 mg PO 0800,1800 [facility] PRN Reason: Protocol Last Admin: 12/10/17 08:01 Dose: 3.125 mg Furosemide (Lasix) 40 mg PO DAILY [facility] PRN Reason: Protocol Last Admin: 12/09/17 09:20 Dose: 40 mg Home Med (Home Med) 1 unit INH QAM [facility] Last Admin: 12/09/17 09:24 Dose: 1 unit Hydrochlorothiazide (Microzide) 12.5 mg PO DAILY [facility] PRN Reason: Protocol Last Admin: 12/09/17 09:19 Dose: 12.5 mg Piperacillin Sod/Tazobactam Sod (Zosyn 3.375 In Ns 100ml) 100 mls @ 200 mls/hr IVPB Q6 [facility] Stop: 12/11/17 21:46 Last Admin: 12/10/17 05:13 Dose: 200 mls/hr Vancomycin HCl (Vancomycin 1gm) 1 gm in 250 mls @ 167 mls/hr IVPB 0600,1800 [facility] Last Admin: 12/10/17 05:13 Dose: 167 mls/hr Lisinopril (Zestril) 10 mg PO DAILY [facility] PRN Reason: Protocol Last Admin: 12/09/17 09:20 Dose: 10 mg Fluticasone Furoate [Arnuity Ellipta] ( Home Med) 1 puff IH QAM [facility] Last Admin: 12/09/17 09:27 Dose: 1 puff Oxycodone/Acetaminophen (Percocet 5/325 Mg Tab) 1 tab PO Q6H PRN PRN Reason: Pain, moderate (4-7) Stop: 12/11/17 08:09 Last Admin: 12/10/17 06:42 Dose: 1 tab Silver Sulfadiazine (Silvadene 1% 25 Gm) 1 gm TP BID [facility] PRN Reason: Protocol Last Admin: 12/09/17 19:53 Dose: 1 gm Warfarin Sodium 2.5 mg/ (Warfarin Sodium 1 mg) 3.5 mg PO 1800 [facility] Last Admin: 12/09/17 17:37 Dose: 3.5 mg - Labs Labs: 12/10/17 05:20 12/10/17 05:20 PT 26.9 SECONDS (9.4-12.5) H 12/10/17 05:20 INR 2.30 (0.93-1.08) H 12/10/17 05:20 - Constitutional Appears: Non-toxic, Chronically Ill - Head Exam Head Exam: NORMAL INSPECTION - ENT Exam ENT Exam: Mucous Membranes Moist - Neck Exam Neck Exam: absent: Meningismus - Respiratory Exam Respiratory Exam: Decreased Breath Sounds - Cardiovascular Exam Cardiovascular Exam: +S1, +S2 - GI/Abdominal Exam GI & Abdominal Exam: Soft. absent: Tenderness Additional comments: wound vacuum in place Assessment and Plan - Assessment and Plan (Free Text) Plan: Assessment abdominal wound infection S/P debridement and wound vacuum placement POD #11 history of acute pulmonary embolism, on anticoagulation HTN DM morbid obesity with BMI 44 Plan on Vancomycin and Zosyn day 13 - january d/c in the next 24 hours will monitor wound vacuum output
[2017-12-11] MEDS: Oxycodone/Acetaminophen 5/325 mg Tab PO PRN ×3 (00:33→16:19)
[2017-12-11] MEDS: Piperacillin/Tazobact 3.375 gm 100 ML IVPB SCH ×4 (00:34→17:45)
[2017-12-11] MEDS: Albuterol-Ipratrop 3 mg / 0.5 (3 ml) UD IH SCH ×6 (05:46→21:21)
[2017-12-11] MEDS: Vancomycin 1gm in NS 250ml 1 GM/250 ML BAG IVPB SCH ×2 (05:55→17:45)
[2017-12-11 06:54] LABS: BASO # 0.04 K/mm3 (0.0-2.0); BASO % 0.5 % (0.0-3.0); EOS # 0.4 (0.0-0.7); EOS % 4.5 % (1.5-5.0); GRAN # 4.88 (1.4-6.5); GRAN % 63.1 % (50.0-68.0); HEMOGLOBIN 9.6 g/dL (12.0-16.0); LYMPH # 1.9 (1.2-3.4); MEAN CORPUSCULAR HEMOGLOBIN 27.1 pg (25.0-35.0); MEAN CORPUSCULAR HGB CONC 31.2 g/dl (31.0-37.0); MEAN PLATELET VOLUME 9.1 fl (7.0-11.0); MONO # 0.6 (0.1-0.6); MONO % 7.9 % (1.0-6.0); RBC 3.54 10^6/uL (3.5-6.1); RED CELL DISTRIBUTION WIDTH 17.3 % (11.5-14.5); WHITE BLOOD COUNT 7.7 10^3/ul (4.5-11.0)
[2017-12-11 07:05] LABS: ALB/GLOB RATIO 0.8 (1.1-1.8); ALBUMIN 3.2 g/dL (3.0-4.8); ALT/SGPT 21 U/L (7-56); AST/SGOT 33 U/L (14-36); BLOOD UREA NITROGEN 19 mg/dL (7-21); CALCIUM 9.5 mg/dL (8.4-10.5); GFR AFRICAN-AMERICAN > 60; GFR NON-AFRICAN AMERICAN > 60
[2017-12-11 07:15] LABS: INR 2.12 (0.93-1.08); PROTHROMBIN TIME 24.8 SECONDS (9.4-12.5)
[2017-12-11] MEDS: Silver Sulfadiazine 1% Cream (25 gm) TP SCH ×2 (10:00→17:44)
[2017-12-11] MEDS: VILANTEROL INH SCH (10:03)
[2017-12-11] MEDS: [UNRECOGNIZED DRUG - OTHER] INH SCH (10:03)
[2017-12-11] MEDS: UMECLIDINIUM INH SCH (10:03)
[2017-12-11] MEDS: FLUTICASONE FUROATE IH SCH (10:04)
--- NOTE | 2017-12-11 11:01 | PN ---
SUBJECTIVE: The patient was seen and examined at bedside on the TCU. No acute events overnight. She remains afebrile and hemodynamically stable. She continues to participate in PT and OT, is doing well and offers no complaints. OBJECTIVE: VITAL SIGNS: Temperature 97.9, pulse 77, blood pressure 111/71, respiratory rate 18, oxygen saturation 98% on room air. GENERAL: Morbidly obese woman lying in bed, in no apparent distress. HEENT: PERRL, EOMI. No scleral icterus. No conjunctival pallor. NECK: Supple with full range of motion. No JVD. LUNGS: Decreased breath sounds at the bases. CARDIOVASCULAR: Regular rate and rhythm. Normal S1 and S2. ABDOMEN: Obese. Normoactive bowel sounds. Wound VAC in place with no drainage. EXTREMITIES: Trace lower extremity edema bilaterally. NEUROLOGIC: Awake, alert and oriented x3. No focal motor deficits. LABORATORY DATA: WBC 7.7, hemoglobin 9.6, hematocrit 31, platelets 451. Chemistry reviewed and unremarkable. INR 2.12. ASSESSMENT: The patient is a 57 year old woman with multiple medical comorbidities including morbid obesity who was sent to the ED for evaluation of a stage II nonhealing pressure ulcer to the abdominal wall, after failure of outpatient antibiotics, for consideration of IV antibiotics and continued local wound care who is now s/p OR debridement with placement of wound VAC POD #12. PLAN: 1. Cellulitis of the abdominal wall with stage II pressure ulcer s/p OR debridement with placement of wound VAC POD #12. Continue with postoperative care as per Dr. Hassan. Input from Dr. Ross appreciated. Continue with current antimicrobials as per Dr. Ross. 2. Dilated cardiomyopathy with an EF of 20%. Continue Coreg 3.125 mg p.o. b.i.d., Lasix 40 mg p.o. daily, Lisinopril 10 mg p.o. daily and HCTZ 12.5 mg p.o. daily. INR therapeutic at 2.12. Continue Coumadin 4 mg p.o. daily with goal INR of 2-3. The patient will require a repeat TTE to reassess LV function and if the EF remains below 35% she will need evaluation for AICD. 3. 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 Continue Coumadin 4 mg p.o. daily with goal INR of 2-3. She will likely require lifelong anticoagulation therapy in the setting of dilated cardiomyopathy with an EF of 20%. 4. Hypertension. Blood pressure controlled. Continue current medications. 5. Iron-deficiency anemia. Labs demonstrate stable H/H at the patient's baseline. She declines Feosol due to constipation. 6. NIDDM, diet controlled, with most recent A1c of 5.9. Continue to monitor fingersticks before every meal and at bedtime. 7. Anxiety disorder. Continue Xanax 0.25 mg p.o. daily. 8. Morbid obesity. The patient has been counseled on lifestyle modifications and arrangements will be made for outpatient dietitian and stemhole borer and topper followup. 9. Prophylaxis. GI prophylaxis is not indicated as the patient is eating. The patient remains on Coumadin thus DVT prophylaxis is not indicated. CODE STATUS: Full code. Jorge Nguyen MD MTDDarío
--- NOTE | 2017-12-11 20:53 | PN ---
DATE: 12/11/2017 SUBJECTIVE: Patient is in bed, in no acute distress, nontoxic. No fevers. PHYSICAL EXAMINATION: VITAL SIGNS: Temperature is 98, blood pressure is 108/60, respiratory rate of 18, heart rate of 76. HEENT: Unremarkable. NECK: Supple. LUNGS: Have decreased breath sounds. HEART: Normal S1, S2. ABDOMEN: Soft, nontender. LABORATORY EXAMINATION: Reveals a white count of 7.7, hemoglobin of 9, platelets of 451. Chemistries are noted and BUN of 19, creatinine 0.9. Microbiology is noted. ASSESSMENT AND PLAN: This is a 57-year-old female, seen earlier this morning in room 327 with abdominal wound infection status post debridement and wound VAC placement, postprocedure day number 12; history of acute pulmonary emboli and anticoagulation; hypertension; diabetes; morbid obesity, body mass index of 44; and vancomycin and Zosyn, day number 14. We will discontinue the antibiotics after today's last dose. Brock Gambino MD
[2017-12-12] MEDS: Albuterol-Ipratrop 3 mg / 0.5 (3 ml) UD IH SCH ×4 (00:32→11:14)
[2017-12-12] MEDS: Oxycodone/Acetaminophen 5/325 mg Tab PO PRN ×2 (00:35→08:09)
[2017-12-12] MEDS: VILANTEROL INH SCH (09:57)
[2017-12-12] MEDS: FLUTICASONE FUROATE IH SCH (09:57)
[2017-12-12] MEDS: [UNRECOGNIZED DRUG - OTHER] INH SCH (09:57)
[2017-12-12] MEDS: UMECLIDINIUM INH SCH (09:57)
[2017-12-12] MEDS: Silver Sulfadiazine 1% Cream (25 gm) TP SCH (09:58)
[2017-12-12 11:23] VITALS: BP 132/88; PULSE 92; RESP 20; TEMP 98.4; O2SAT 94
--- NOTE | 2017-12-12 12:26 | CP.PCM.PCO ---
Physician Communication Note - Physician Communication Note Physician Communication Note: Wound vac changed. Pt clear for d/c from surgical standpoint
--- NOTE | 2017-12-12 13:58 | PN ---
SUBJECTIVE: The patient was seen and examined at bedside on the TCU. No acute events overnight. She remains afebrile and hemodynamically stable. This morning she feels well, offers no complaints and is looking forward to discharge to home. PHYSICAL EXAMINATION VITAL SIGNS: Temperature 98.5, pulse 86, blood pressure 118/70, respiratory rate 18, oxygen saturation 97% on room air. GENERAL: Morbidly obese woman lying in bed, in no apparent distress. HEENT: PERRL, EOMI. No scleral icterus. No conjunctival pallor. NECK: Supple with full range of motion. No JVD. LUNGS: Decreased breath sounds at the bases. CARDIOVASCULAR: Regular rate and rhythm. Normal S1 and S2. ABDOMEN: Obese. Normoactive bowel sounds. Wound VAC in place with no drainage. EXTREMITIES: Trace lower extremity edema bilaterally. NEUROLOGIC: Awake, alert and oriented x3. No focal motor deficits. LABORATORY DATA: Morning labs are pending. ASSESSMENT: The patient is a 57 year old woman with multiple medical comorbidities including morbid obesity who was sent to the ED for evaluation of stage II nonhealing pressure ulcer to the abdominal wall, after failure of outpatient antibiotics, for consideration of intravenous antibiotics and continued local wound care who is now s/p OR debridement with placement of wound VAC POD #13. PLAN 1. Cellulitis of the abdominal wall with stage II pressure ulcer s/p OR debridement with placement of wound VAC POD #13. Continue with postoperative care as per Dr. Hassan. Input from Dr. Gambino appreciated. The patient remains off antimicrobials and has completed a 14 day course of antibiotics. 2. Dilated cardiomyopathy with an EF of 20%. Continue Coreg 3.125 mg p.o. b.i.d., Lasix 40 mg p.o. daily, Lisinopril 10 mg p.o. daily and HCTZ 12.5 mg p.o. daily. INR therapeutic. Continue Coumadin 4 mg p.o. daily with goal INR of 2-3. The patient will require a repeat TTE to reassess LV function and if the EF remains below 35%, she will need evaluation for AICD. 3. 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 Continue Coumadin 4 mg p.o. daily with goal INR of 2-3. She will likely require lifelong anticoagulation therapy in the setting of dilated cardiomyopathy with an EF of 20%. 4. Hypertension. Blood pressure controlled. Continue current medications. 5. Iron-deficiency anemia. Labs demonstrate stable H/H at the patient's baseline. She declines Feosol due to constipation. 6. NIDDM, diet controlled, with most recent A1c of 5.9. Continue to monitor fingersticks before every meal and at bedtime. 7. Anxiety disorder. Continue Xanax 0.25 mg p.o. daily. 8. Morbid obesity. Arrangements will be made for outpatient dietitian and microscopist followup. 9. Prophylaxis. GI prophylaxis is not indicated as the patient is eating. The patient remains on Coumadin thus DVT prophylaxis is not indicated. 10. Disposition: The patient to be discharged to home today. CODE STATUS: Full code. Jorge Nguyen MD MTDDarío
--- NOTE | 2017-12-12 15:46 | DS ---
ADMITTING DIAGNOSES: Cellulitis of the abdominal wall with stage II pressure ulcer s/p OR debridement with placement of wound VAC. DISCHARGE DIAGNOSES: Cellulitis of the abdominal wall with stage II pressure ulcer s/p OR debridement with placement of wound VAC. SECONDARY DIAGNOSES: Dilated cardiomyopathy, history of provoked DVT/PE s/p IVC filter placement, HTN , iron-deficiency anemia, NIDDM, anxiety disorder and morbid obesity. CONSULTATION: Dr. Gambino (Infectious Disease) and Dr. Hassan (General Surgery). IMAGING STUDIES: None. PROCEDURES: None. HISTORY OF PRESENT ILLNESS: The patient is a 57 year old woman with a past medical history of morbid obesity who was sent to [facility] ED Dr. Hassan for evaluation of a nonhealing stage II pressure ulcer to her pannus. The patient was closely followed by Dr. Hassan [facility] for treatment of cellulitis of her abdominal wall and failed outpatient oral antibiotics consisting of Augmentin 875 mg p.o. b.i.d. for 2 weeks. She was also sent for a CT of the abdomen and pelvis which was negative for abscess or fistulization. Due to failure of wound healing and outpatient antimicrobials, she was sent to the ED for evaluation for IV antibiotics and possible surgical debridement. The patient was then taken to the OR by Dr. Hassan where she underwent debridement with placement of wound VAC. Her hospital course was uncomplicated and she was subsequently transferred to the TCU for continued antimicrobial therapy, local wound care and physical therapy. HOSPITAL COURSE: Upon admission to the TCU she was maintained on Vancomycin and Zosyn. She was also closely followed by Dr. Hassan and the surgical team where she underwent local wound care and changes of her wound VAC as indicated. Her TCU stay was unremarkable and she was noted to excel with PT and OT. Arrangements were made for visiting nursing services at home for continued care of the wound VAC and continued local care of her abdominal wound and by hospital day #7, she was deemed stable for discharge to home. CONDITION: Fair, improved. DISPOSITION: Home. DISCHARGE MEDICATIONS: Coumadin 4 mg p.o. daily, Carvedilol 3.125 mg p.o. b.i.d., Lasix 40 mg p.o. daily, Xanax 0.25 mg p.o. daily, Llisinopril/HCTZ 10/12.5 mg p.o. daily and Percocet 5/325 mg one tab p.o. q. 6 hours p.r.n. pain. DISCHARGE INSTRUCTIONS: The patient was advised that if she develops any fevers, chills, rigors, nausea , vomiting, diarrhea, discharge from her abdominal wound or increasing erythema at her abdominal wound site to notify her PMD or the visiting nursing services immediately. FOLLOWUP: The patient to follow up with her PMD within 1 week of discharge. The patient to follow up with Dr. Hassan as scheduled. Jorge Nguyen MD MTDD
--- NOTE | 2017-12-12 17:35 | PN ---
DATE: 12/12/2017 SUBJECTIVE: The patient is in bed, in no acute distress. PHYSICAL EXAMINATION: VITAL SIGNS: Temperature is 98, blood pressure is 130/80, respiratory rate of 20, heart rate of 92. HEENT: Unremarkable. NECK: Supple. LUNGS: Decreased breath sounds. HEART: Normal S1, S2. ABDOMEN: Soft. LABORATORY EXAMINATION: Reveals a white count of 7.7, hemoglobin of 9, platelets of 451. Coagulation is noted. Chemistry reveals a BUN of 19, creatinine of 0.9. Microbiology is noted. ASSESSMENT AND PLAN: A 57-year-old female who was seen early this morning in 327 with abdominal wound infection status post debridement and wound vacuum-assisted closure placement, postprocedure day #13, history of acute pulmonary emboli and anticoagulation, hypertension, diabetes, morbid obesity and completed 14 days of antibiotics. No further antibiotics indicated at this point and the patient is at risk for developing nosocomial infections. Brock Gambino MD
--- NOTE | 2017-12-13 13:48 | CP.PCM.PCO ---
Physician Communication Note - Physician Communication Note Physician Communication Note: Wound dimensions prior to d/c [id number]
== END 2017-12-12 14:11 | disposition home health service (06) | DRG 603 ==
LOC: TRCU 19:42
PROVIDERS: ADMIT Student in an Organized Health Care Education/Training Program; ATTEND Student in an Organized Health Care Education/Training Program
PROC: F07Z9FZ Gait Training/Functional Ambulation Treatment using Assistive, Adaptive, Supportive or Protective Equipment (ICD-10-PCS; principal; 2017-12-05)
PROC: F07M6ZZ Therapeutic Exercise Treatment of Musculoskeletal System - Whole Body (ICD-10-PCS; 2017-12-05)
PROC: F08Z1ZZ Dressing Techniques Treatment (ICD-10-PCS; 2017-12-05)
PROC: F08Z2ZZ Grooming/Personal Hygiene Treatment (ICD-10-PCS; 2017-12-05)
PROC: F08Z0ZZ Bathing/Showering Techniques Treatment (ICD-10-PCS; 2017-12-05)
DX: L03.311 Cellulitis of abdominal wall (principal); I42.0 Dilated cardiomyopathy; Z68.41 Body mass index [BMI] 40.0-44.9, adult; L89.892 Pressure ulcer of other site, stage 2; D50.9 Iron deficiency anemia, unspecified; E11.9 Type 2 diabetes mellitus without complications; E66.01 Morbid (severe) obesity due to excess calories; F41.9 Anxiety disorder, unspecified; I11.0 Hypertensive heart disease with heart failure; I50.9 Heart failure, unspecified; J44.9 Chronic obstructive pulmonary disease, unspecified; Z86.711 Personal history of pulmonary embolism; Z86.718 Personal history of other venous thrombosis and embolism

== ENCOUNTER 2017-12-28 10:49 | Inpatient (IN) | payer BC ==
[2017-12-28] MEDS ORDERED: Sodium Chloride 0.9% 1,000 ML IV ONE (11:25)
--- NOTE | 2017-12-28 11:31 | ED PDOC ---
Arrival/HPI - General Chief Complaint: Wound Check Time Seen by Provider: 12/28/17 11:15 Historian: Patient, EMS - History of Present Illness Narrative History of Present Illness (Text): 12/28/17 11:28 pt p/w + lower abd wound that is appearing worse today, as per visiting nurse/ wound care nurse; pt with recent hx of abd wound exploration and wound vac and persistent abd wall wound injury x ~ 4 weeks and was admitted at that time, just discharged 2 weeks ago; pt states since then, with multiple visiting nurses at her home for wound care; today, the nurse who had treated her once before became concern on the appearance of the wound as well as able to express wound discharge/pus-like from the wound site; pt was directed to ED for further eval; pt states no fever/chills/sweats, no cp/sob/palpitations, no new abd pain , no n/v, no numbness/tingling, no urinary/bowel changes, no fall/trauma/sick contact, no travel registered nurse nicu is here for further eval pt's without other complaints. PCP: Rayna Tracy surg: Dr Hassan ID: [email or web address] Time/Duration: < month (~ 2-3 weeks) Symptom Onset: Gradual Symptom Course: Worsening Activities at Onset: Rest Context: Home Past Medical History - Provider Review Nursing Documentation Reviewed: Yes - Travel History Have you recently traveled outside [place] w/in the past 3 mons?: No - Past History Past History: No Previous - Infectious Disease Hx of Infectious Diseases: None - Reproductive Menopause: Yes Currently : No - Cardiac Hx Congestive Heart Failure: Yes - Pulmonary Hx Chronic Obstructive Pulmonary Disease (COPD): Yes - Neurological Hx Paralysis: No - HEENT Hx HEENT Disorder: Yes (STRABISMUS WITH SX.) - Renal Hx Renal Disorder: No - Endocrine/Metabolic Hx Diabetes Mellitus Type 2: Yes - Hematological/Oncological Hx Blood Transfusions: Yes (04/2017) Hx Blood Transfusion Reaction: No - Integumentary Hx Dermatological Disorder: No - Musculoskeletal/Rheumatological Hx Falls: Yes (past) - Gastrointestinal Hx Gastrointestinal Disorders: Yes (11/30/17 abd wound debridement/wound vac) - Genitourinary/Gynecological Hx Genitourinary Disorders: No Hx Reproductive Disorders: No - Psychiatric Hx Emotional Abuse: No Hx Physical Abuse: No Hx Substance Use: No - Anesthesia Hx Anesthesia Reactions: No Hx Malignant Hyperthermia: No - Suicidal Assessment Feels Threatened In Home Enviroment: No Family/Social History - Physician Review Nursing Documentation Reviewed: Yes Family/Social History: No Known Family HX Smoking Status: Never Smoked Hx Alcohol Use: No Hx Substance Use: No Hx Substance Use Treatment: No Allergies/Home Meds Allergies/Adverse Reactions: Allergies No Known Allergies Allergy (Verified 12/04/17 21:14) Home Medications: Home Meds Medication Instructions Recorded Confirmed Alprazolam [Xanax] 0.25 mg PO PRN PRN 10/17/17 12/28/17 Fluticasone Furoate [Arnuity 1 puff IH QA 10/17/17 12/28/17 Ellipta] Umeclidinium Brm/Vilanterol Tr 1 puff IH [facility] 10/17/17 12/28/17 [Anoro Ellipta 62.5-25 Mcg INH] Folic Acid [FA-8] 0 mg PO DAILY 12/28/17 12/28/17 Glimepiride [Amaryl] 4 mg PO BID 12/28/17 12/28/17 Vitamin B Complex [Vitamin B50 1 cap PO DAILY 12/28/17 12/28/17 Super Complex] Warfarin [Coumadin] 4 mg PO 1800 12/28/17 12/28/17 metFORMIN [glucOPHAGE] 850 mg PO BID 12/28/17 12/28/17 traMADol [Ultram] 50 mg PO DAILY 12/28/17 12/28/17 Review of Systems - Review of Systems Constitutional: Fatigue Eyes: Normal ENT: Normal Respiratory: Normal Cardiovascular: Normal Gastrointestinal: Normal Genitourinary Female: Normal Musculoskeletal: Normal Skin: Other (abd wall wound) Neurological: Normal Endocrine: Normal Hemo/Lymphatic: Normal Psychiatric: Normal Physical Exam Vital Signs Reviewed: Yes Vital Signs Temp Pulse Resp BP Pulse Ox 12/28/17 18:44 97 H 117/70 12/28/17 16:37 79 18 131/67 96 12/28/17 14:16 86 18 133/65 96 12/28/17 12:28 94 H 18 135/61 96 12/28/17 11:01 98.4 F 100 H 18 137/59 L 96 Temperature: Afebrile Blood Pressure: Normal Pulse: Tachycardic Respiratory Rate: Normal Appearance: Positive for: Well-Appearing, Non-Toxic, Other (uncomfortable, NAD, alert/awake, GCS = 15, oriented x 3, resting in bed, cooperative) Pain Distress: None Mental Status: Positive for: Alert and Oriented X 3 - Systems Exam Head: Present: Atraumatic, Normocephalic Pupils: Present: PERRL, Other (no nystagmus, no photophobia, sclera anicteric, visual field intact b/l) Extroacular Muscles: Present: EOMI Conjunctiva: Present: Normal Ears: Present: Normal Mouth: Present: Dry, Other (fair dentitions, no drooling/stridor, no exudate/ lesions, no dysphonia) Pharnyx: Present: Normal Nose (External): Present: Atraumatic Nose (Internal): Present: Normal Inspection Neck: Present: Normal Range of Motion, Trachea Midline, Other (no midline tenderness, no nuchal rigidity, no meningeal signs, no step off). No: Meningeal Signs, MIDLINE TENDERNESS Respiratory/Chest: Present: Clear to Auscultation, Good Air Exchange, Other ( CTA b/l, no w/r/r, no accessory muscle use noted, no tachypenia). No: Respiratory Distress, Accessory Muscle Use Cardiovascular: Present: Regular Rate and Rhythm, Normal S1, S2. No: Murmurs Abdomen: Present: Normal Bowel Sounds, Other (well nourished/obese female, noted mid lower abd wound oval shaped extending to the left lower abd wall region, noted near central region wound with well degranuated skin noted packing that appears new, no gross bleeding noted, + surrounding wound skin erythema is noted with diffuse abd wound tenderness noted on exam, noted left lateral abd wall wound with ulcerated skin, non-vesiculated, non-puritic, non- blisters, NO nikosky's sign; ~ 5x10cm in size) Back: Present: Normal Inspection. No: CVA Tenderness, Midline Tenderness Upper Extremity: Present: Normal Inspection, Normal ROM, NORMAL PULSES, Capillary Refill < 2s Lower Extremity: Present: Normal Inspection, Edema, NORMAL PULSES, Other (pt is bed bound, strength 4-/5 b/l, no gross deformities noted, neurovasc intact b/l) Neurological: Present: GCS=15, CN II-XII Intact, Speech Normal Skin: Present: Warm, Other (cap refill ~ 1sec, no ulcerations, no petechiae, mild pallor) Psychiatric: Present: Alert, Oriented x 3 Medical Decision Making ED Course and Treatment: 12/28/17 11:28 Impression: abd wound/infection i have consider all the differential diagnosis regarding pt's chief medical complaints/clinical findings, including but are not limited to: abd wound/ infection, unlikely abscess A/P: abd wound/infection - labs - iv - cultures - diagnostics? - supportive care - observe/reevaluation 12/28/17 12:[address] Hassan (surg) will send his resident down to ED for further eval/ exam 12/28/17 1305 surgical team is at bedside, pt will be admitted under surgery team, likely wound debridement in 1-2 days, will continue abx in the meantime pt is currently comfortable, not in any distress pt is made aware of her medical results agrees with admission 12/28/17 13:30 Surgical team discussed case with Dr. Hassan and Dr. Rayna Tracy, who have decided that patient is better served to be discharged home and come back Sunday for further wound care. Patient will be discharged home as recommended. 12/28/17 13:58 surgery is at bedside discussed with the patient, and decided to admit the patient instead of discharging patient home pt will now be admitted to the hospital for further wound care and abx pt agrees with admission 12/28/17 14:40 i was notified by nursing staff that Dr Hassan is under suspension as a result cant admit patients i spoke to Austin Tracy, pt's PCP, made aware, agrees with admission i spoke to surgery team, made aware of admitting doctor changes, will continue to f/u with patient Re-evaluation Time: 13:15 Reassessment Condition: Improved - Lab Interpretations Lab Results: 12/28/17 11:11 12/28/17 11:11 Lab Results 12/28/17 13:23: POC Glucose (mg/dL) 88 12/28/17 12:42: POC Glucose (mg/dL) 32 L* 12/28/17 12:40: Urine Color Yellow, Urine Appearance Clear, Urine pH 5.5, Ur Specific [place] 1.015, Urine Protein 30 H, Urine Glucose (UA) Negative, Urine Ketones Negative, Urine Blood Large H, Urine Nitrate Negative, Urine Bilirubin Negative, Urine Urobilinogen 1.0 H, Ur Leukocyte Esterase Negative, Urine RBC 5 - 10, Urine WBC Negative, Ur Epithelial Cells 1 - 3 12/28/17 11:55: C-React Prot High Sens > 15.00 H 12/28/17 11:55: Procalcitonin < 0.05 L 12/28/17 11:11: Serum Osmolality 277 12/28/17 11:11: Sodium 136, Chloride 98, Potassium 3.6, Carbon Dioxide 27, Anion Gap 15, BUN 19, Creatinine 0.6 L, Est GFR ( Amer) > 60, Est GFR ( Non-Af Amer) > 60, Random Glucose 44 L* D, Calcium 8.5, Phosphorus 4.1, Magnesium 1.8, Total Bilirubin 0.6, AST 26, ALT 28, Alkaline Phosphatase 153 H D , Total Protein 7.0, Albumin 3.0, Globulin 4.0, Albumin/Globulin Ratio 0.7 L 12/28/17 11:11: pO2 137 H, VBG pH 7.52 H, VBG pCO2 38.0 L, VBG HCO3 31.0 H, VBG Total CO2 32.2 H, VBG O2 Sat (Calc) 99.7 H, VBG Base Excess 7.7 H, VBG Potassium 3.9, Sodium 135.0, Chloride 102.0, Glucose 46 L, Lactate 1.8, FiO2 21.0, Venous Blood Potassium 3.9 12/28/17 11:11: PT 38.0 H, INR 3.23 H, APTT 47.0 H 12/28/17 11:11: WBC 9.2, RBC 3.60, Hgb 9.7 L, Hct 30.3 L, MCV 84.2, MCH 26.9, MCHC 32.0, RDW 16.5 H, Plt Count 314, MPV 9.1, Gran % 78.5 H, Lymph % (Auto) 8.9 L, [place] % (Auto) 12.2 H, Eos % (Auto) 0.3 L, Baso % (Auto) 0.1, Gran # 7.24 H, Lymph # (Auto) 0.8 L, [place] # (Auto) 1.1 H, Eos # (Auto) 0.0, Baso # (Auto) 0.01, ESR 114 H I have reviewed the lab results: Yes Interpretation: Abnormal lab values (low gluc; decr h/h) - RAD Interpretation Narrative RAD Interpretations (Text): 12/28/17 13:06 Chest X-ray reviewed by radiologist, shows: LUNGS: Pulmonary vascular congestion. No discrete PLEURA: No significant pleural effusion identified, no pneumothorax apparent. CARDIOVASCULAR: Infiltrates cardiomegaly, pulmonary vascular congestion a new finding compared to the prior study. OSSEOUS STRUCTURES: No significant abnormalities. VISUALIZED UPPER ABDOMEN: Normal. OTHER FINDINGS: None. IMPRESSION: Cardiomegaly/CHF. Radiology Orders: 12/28/17 11:25 CHEST PORTABLE [RAD] Stat Outside Repairer Special: Radiologist - EKG Interpretation EKG Interpretation (Text): 12/28/17 12:03 Sinus rhythm at 95 bpm, LAD, low voltages to inf leads, LBBB, no ectopy, non- specific st-t changes, ABNL EKG; no gross changes compare with old ekg 11/27/17 Interpreted by ED Physician: Yes Type: 12 lead EKG Comparison: Similar to previous EKG - Medication Orders Current Medication Orders: Alprazolam (Xanax) 0.25 mg PO PRN PRN; Protocol PRN Reason: Anxiety Stop: 01/04/18 13:20 Last Admin: 12/28/17 17:23 Dose: 0.25 mg Carvedilol (Coreg) 3.125 mg PO 0800,1800 [facility] Last Admin: 12/28/17 18:44 Dose: 3.125 mg Collagenase (Santyl) 0 gm TOP DAILY [facility] Last Admin: 12/28/17 14:45 Dose: 1 applic Furosemide (Lasix) 40 mg PO DAILY [facility] Piperacillin Sod/Tazobactam Sod (Zosyn 3.375 In Ns 100ml) 100 mls @ 200 mls/hr IVPB Q6 [facility] PRN Reason: Protocol Stop: 01/04/18 18:01 Last Admin: 12/28/17 18:45 Dose: 200 mls/hr Vancomycin HCl (Vancomycin 1gm) 1 gm in 250 mls @ 167 mls/hr IVPB Q12 [facility] PRN Reason: Protocol Insulin Human Regular (Humulin R) 0 units SC ACHS [facility] PRN Reason: Protocol Last Admin: 12/28/17 16:57 Dose: Not Given Lisinopril (Zestril) 10 mg PO DAILY [facility] Arnuity Ellipta ((Home Med)) 1 puff IH QAM [facility] Tramadol HCl (Ultram) 50 mg PO DAILY [facility] Discontinued Medications Dextrose (Dextrose 50% Inj) 50 ml IVP STAT STA Stop: 12/28/17 12:46 Last Admin: 12/28/17 12:56 Dose: Sodium Chloride (Sodium Chloride 0.9%) 1,000 mls @ 2,000 mls/hr IV .Q30M ONE Stop: 12/28/17 11:54 Last Admin: 12/28/17 11:30 Dose: 2,000 mls/hr eMAR Start Stop Document 12/28/17 11:30 SF (Rec: 12/28/17 11:48 SF [email or web address] Intravenous Solution Start Date 12/28/17 Start Time 11:30 End Date 12/28/17 End time 12:00 Total Infusion Time 30 Vancomycin HCl (Vancomycin 1gm) 1 gm in 250 mls @ 167 mls/hr IVPB STAT STA PRN Reason: Protocol Stop: 12/28/17 15:02 Last Admin: 12/28/17 14:29 Dose: 167 mls/hr eMAR Start Stop Document 12/28/17 14:29 SF (Rec: 12/28/17 14:29 SF [email or web address] Intravenous Solution Start Date 12/28/17 Start Time 14:29 End Date 12/28/17 End time 16:00 Total Infusion Time 91 Piperacillin Sod/Tazobactam Sod (Zosyn 4.5 Gm In Ns 100ml) 4.5 gm in 100 mls @ 200 mls/hr IVPB STAT STA PRN Reason: Protocol Stop: 12/28/17 14:02 Last Admin: 12/28/17 13:45 Dose: 200 mls/hr eMAR Start Stop Document 12/28/17 13:45 SF (Rec: 12/28/17 13:45 SF [email or web address] Intravenous Solution Start Date 12/28/17 Start Time 13:45 End Date 12/28/17 End time 14:15 Total Infusion Time 30 Vancomycin HCl (Vancomycin 1gm) 1 gm in 250 mls @ 167 mls/hr IVPB DAILY [facility] PRN Reason: Protocol Disposition/Present on Arrival - Present on Arrival Any Indicators Present on Arrival: No History of DVT/PE: No History of Uncontrolled Diabetes: No Urinary Catheter: No History of Decub. Ulcer: No History Surgical Site Infection Following: None - Disposition Have Diagnosis and Disposition been Completed?: Yes Diagnosis: Abdominal wall cellulitis, Wound, open, abdominal wall, anterior with complication, Hypoglycemia Diagnosis: (Ruled Out): Recurrent abdominal wound abscess Disposition: HOSPITALIZED Disposition Time: 13:10 Patient Plan: Admission Patient Problems: Current Active Problems Problem Status Onset Abdominal wall cellulitis Acute Wound, open, abdominal wall, anterior with complication Acute Hypoglycemia Acute Condition: STABLE
[2017-12-28 11:51] LABS: VENOUS BLOOD GAS BASE EXCESS 7.7 mmol/L (0.0-2.0); VENOUS BLOOD GAS PO2 137 mm/Hg (30-55); VENOUS BLOOD PH 7.52 (7.32-7.43)
[2017-12-28 11:54] LABS: BASO # 0.01 K/mm3 (0.0-2.0); BASO % 0.1 % (0.0-3.0); EOS % 0.3 % (1.5-5.0); GRAN # 7.24 (1.4-6.5); GRAN % 78.5 % (50.0-68.0); HEMOGLOBIN 9.7 g/dL (12.0-16.0); LYMPH # 0.8 (1.2-3.4); LYMPH % 8.9 % (22.0-35.0); MEAN CELL VOLUME 84.2 fl (80.0-105.0); MEAN CORPUSCULAR HEMOGLOBIN 26.9 pg (25.0-35.0); MEAN PLATELET VOLUME 9.1 fl (7.0-11.0); MONO # 1.1 (0.1-0.6); MONO % 12.2 % (1.0-6.0); RBC 3.6 10^6/uL (3.5-6.1); RED CELL DISTRIBUTION WIDTH 16.5 % (11.5-14.5); WHITE BLOOD COUNT 9.2 10^3/ul (4.5-11.0)
[2017-12-28 12:17] LABS: INR 3.23 (0.93-1.08)
[2017-12-28 12:35] LABS: ALB/GLOB RATIO 0.7 (1.1-1.8); ALT/SGPT 28 U/L (7-56); AST/SGOT 26 U/L (14-36); BLOOD UREA NITROGEN 19 mg/dL (7-21); CALCIUM 8.5 mg/dL (8.4-10.5); GFR AFRICAN-AMERICAN > 60; GFR NON-AFRICAN AMERICAN > 60
--- NOTE | 2017-12-28 12:38 | CARD ---
APPROVED REPORT EKG Measurement Heart [id number] CO [id number] [id number] <Conclusion> RSR LBBB Electrical artifact present No change
[2017-12-28] MEDS ORDERED: Dextrose 50% SYRINGE Inj (50 ml) IVP STA (12:45)
[2017-12-28] MEDS ORDERED: Dextrose 50% SYRINGE Inj (50 ml) ONE (12:46)
[2017-12-28 12:50] LABS: PH,URINE 5.5 (4.7-8.0); URINE BILIRUBIN NEGATIVE (NEGATIVE); URINE BLOOD LARGE (NEGATIVE); URINE GLUCOSE (UA) NEGATIVE (NEGATIVE); URINE LEUKOCYTE ESTERASE NEGATIVE Leu/uL (NEGATIVE); URINE PROTEIN 30 mg/dL (<30 mg/dL)
[2017-12-28 12:51] LABS: URINE APPEARANCE CLEAR (CLEAR); URINE COLOR YELLOW (YELLOW)
--- NOTE | 2017-12-28 13:04 | RAD ---
HISTORY: Sepsis Patient COMPARISON: 11/27/2017 FINDINGS: LUNGS: Pulmonary vascular congestion. No discrete PLEURA: No significant pleural effusion identified, no pneumothorax apparent. CARDIOVASCULAR: Infiltrates cardiomegaly, pulmonary vascular congestion a new finding compared to the prior study. OSSEOUS STRUCTURES: No significant abnormalities. VISUALIZED UPPER ABDOMEN: Normal. OTHER FINDINGS: None. IMPRESSION: Cardiomegaly/CHF.
[2017-12-28 13:07] LABS: URINE WBC NEGATIVE /hpf (0-6)
[2017-12-28] MEDS ORDERED: Oxycodone/Acetaminophen 5/325 mg Tab PO PRN (13:16)
[2017-12-28] MEDS ORDERED: Piperacill/Tazo 4.5gm in NS 4.5 GM/100 ML BAG IVPB STA (13:33)
[2017-12-28] MEDS ORDERED: Vancomycin 1gm in NS 250ml 1 GM/250 ML BAG IVPB STA (13:33)
--- NOTE | 2017-12-28 13:59 | CP.PCM.HP ---
History of Present Illness - History of Present Illness History of Present Illness: General Surgery: Dr Hassan Pt S&E in ED. Well known to surgical service. PMH of htn, dm, PE, abdominal wound infection being treated with wound vac. Pt was sent in after VNS evaluated her wound and felt it looked infected. Pt denies any recent fevers, chills, nausea, vomiting or weakness. There has been no noticeable discharge or foul odor from the wound. Pt is very emotional and concerned she cannot "handle all this" on her own at home. After evaluation of the wound determined pt will need further debridement. Pt did have a blood glucose of 33 on admission. Has since been corrected. Present on Admission - Present on Admission Any Indicators Present on Admission: No History of DVT/PE: Yes History of Uncontrolled Diabetes: No Review of Systems - Review of Systems All systems: reviewed and no additional remarkable complaints except (as per hpi ) Past Patient History - Past Social History Smoking Status: Never Smoked - CARDIAC Hx Congestive Heart Failure: Yes - PULMONARY Hx Chronic Obstructive Pulmonary Disease (COPD): Yes - NEUROLOGICAL Hx Paralysis: No - HEENT Hx HEENT Problems: Yes (STRABISMUS WITH SX.) - RENAL Hx Chronic Kidney Disease: No - ENDOCRINE/METABOLIC Hx Diabetes Mellitus Type 2: Yes - HEMATOLOGICAL/ONCOLOGICAL Hx Blood Transfusions: Yes (04/2017) Hx Blood Transfusion Reaction: No - INTEGUMENTARY Hx Dermatological Problems: No - MUSCULOSKELETAL/RHEUMATOLOGICAL Hx Falls: Yes (past) - GASTROINTESTINAL Hx Gastrointestinal Disorders: Yes (11/30/17 abd wound debridement/wound vac) - GENITOURINARY/GYNECOLOGICAL Hx Genitourinary Disorders: No Hx Reproductive Disorders: No - PSYCHIATRIC Hx Emotional Abuse: No Hx Physical Abuse: No Hx Substance Use: No - SURGICAL HISTORY Hx Surgeries: Yes (EYE SX"LAZY EYE";) - ANESTHESIA Hx Anesthesia Reactions: No Hx Malignant Hyperthermia: No Meds Allergies/Adverse Reactions: Allergies Allergy/AdvReac Type Severity Reaction Status Date / Time No Known Allergies Allergy Verified 12/04/17 21:14 Physical Exam - Constitutional Appears: Non-toxic, No Acute Distress - Head Exam Head Exam: NORMOCEPHALIC - ENT Exam ENT Exam: Mucous Membranes Moist - Respiratory Exam Respiratory Exam: absent: Accessory Muscle Use, Respiratory Distress - Cardiovascular Exam Cardiovascular Exam: REGULAR RHYTHM. absent: Tachycardia - GI/Abdominal Exam GI & Abdominal Exam: Soft. absent: Distended, Firm, Guarding, Hernia, Tenderness Additional comments: ~8x4cm abdominal wound with surrounding areas of skin necrosis, no erythema noted, no purulent discharge, areas of granulation - Extremities Exam Extremities exam: Negative for: pedal edema - Neurological Exam Neurological exam: Alert, Oriented x3 - Psychiatric Exam Psychiatric exam: Anxious - Skin Skin Exam: Normal Color, Warm Results - Vital Signs Recent Vital Signs: Last Vital Signs Temp 98.4 F 12/28/17 11:01 Pulse 94 H 12/28/17 12:28 Resp 18 12/28/17 12:28 BP 135/61 12/28/17 12:28 Pulse Ox 96 12/28/17 12:28 - Labs Result Diagrams: 12/28/17 11:11 12/28/17 11:11 Labs: Laboratory Results - last 24 hr 12/28/17 12/28/17 12/28/17 11:11 11:11 11:11 WBC 9.2 RBC 3.60 Hgb 9.7 L Hct 30.3 L MCV 84.2 MCH 26.9 MCHC 32.0 RDW 16.5 H Plt Count 314 MPV 9.1 Gran % 78.5 H Lymph % (Auto) 8.9 L [place] % (Auto) 12.2 H Eos % (Auto) 0.3 L Baso % (Auto) 0.1 Gran # 7.24 H Lymph # (Auto) 0.8 L [place] # (Auto) 1.1 H Eos # (Auto) 0.0 Baso # (Auto) 0.01 ESR 114 H PT 38.0 H INR 3.23 H APTT 47.0 H pO2 137 H VBG pH 7.52 H VBG pCO2 38.0 L VBG HCO3 31.0 H VBG Total CO2 32.2 H VBG O2 Sat (Calc) 99.7 H VBG Base Excess 7.7 H VBG Potassium 3.9 Sodium 135.0 Chloride 102.0 Glucose 46 L Lactate 1.8 FiO2 21.0 Potassium Carbon Dioxide Anion Gap BUN Creatinine Est GFR ( Amer) Est GFR (Non-Af Amer) POC Glucose (mg/dL) Random Glucose Serum Osmolality Calcium Phosphorus Magnesium Total Bilirubin AST ALT Alkaline Phosphatase Total Protein Albumin Globulin Albumin/Globulin Ratio Venous Blood Potassium 3.9 Urine Color Urine Appearance Urine pH Ur Specific [place] Urine Protein Urine Glucose (UA) Urine Ketones Urine Blood Urine Nitrate Urine Bilirubin Urine Urobilinogen Ur Leukocyte Esterase Urine RBC Urine WBC Ur Epithelial Cells 12/28/17 12/28/17 12/28/17 11:11 11:11 12:40 WBC RBC Hgb Hct MCV MCH MCHC RDW Plt Count MPV Gran % Lymph % (Auto) [place] % (Auto) Eos % (Auto) Baso % (Auto) Gran # Lymph # (Auto) [place] # (Auto) Eos # (Auto) Baso # (Auto) ESR PT INR APTT pO2 VBG pH VBG pCO2 VBG HCO3 VBG Total CO2 VBG O2 Sat (Calc) VBG Base Excess VBG Potassium Sodium 136 Chloride 98 Glucose Lactate FiO2 Potassium 3.6 Carbon Dioxide 27 Anion Gap 15 BUN 19 Creatinine 0.6 L Est GFR ( Amer) > 60 Est GFR (Non-Af Amer) > 60 POC Glucose (mg/dL) Random Glucose 44 L* D Serum Osmolality 277 Calcium 8.5 Phosphorus 4.1 Magnesium 1.8 Total Bilirubin 0.6 AST 26 ALT 28 Alkaline Phosphatase 153 H D Total Protein 7.0 Albumin 3.0 Globulin 4.0 Albumin/Globulin Ratio 0.7 L Venous Blood Potassium Urine Color Yellow Urine Appearance Clear Urine pH 5.5 Ur Specific [place] 1.015 Urine Protein 30 H Urine Glucose (UA) Negative Urine Ketones Negative Urine Blood Large H Urine Nitrate Negative Urine Bilirubin Negative Urine Urobilinogen 1.0 H Ur Leukocyte Esterase Negative Urine RBC 5 - 10 Urine WBC Negative Ur Epithelial Cells 1 - 3 12/28/17 12/28/17 12:42 13:23 WBC RBC Hgb Hct MCV MCH MCHC RDW Plt Count MPV Gran % Lymph % (Auto) [place] % (Auto) Eos % (Auto) Baso % (Auto) Gran # Lymph # (Auto) [place] # (Auto) Eos # (Auto) Baso # (Auto) ESR PT INR APTT pO2 VBG pH VBG pCO2 VBG HCO3 VBG Total CO2 VBG O2 Sat (Calc) VBG Base Excess VBG Potassium Sodium Chloride Glucose Lactate FiO2 Potassium Carbon Dioxide Anion Gap BUN Creatinine Est GFR ( Amer) Est GFR (Non-Af Amer) POC Glucose (mg/dL) 32 L* 88 Random Glucose Serum Osmolality Calcium Phosphorus Magnesium Total Bilirubin AST ALT Alkaline Phosphatase Total Protein Albumin Globulin Albumin/Globulin Ratio Venous Blood Potassium Urine Color Urine Appearance Urine pH Ur Specific [place] Urine Protein Urine Glucose (UA) Urine Ketones Urine Blood Urine Nitrate Urine Bilirubin Urine Urobilinogen Ur Leukocyte Esterase Urine RBC Urine WBC Ur Epithelial Cells Assessment & Plan - Assessment and Plan (Free Text) Assessment: 57F with abdominal wound with necrotic skin edges Plan: admit IV abx ID consult wound/blood cultures santyl over the weekend will plan for debridement sunday d/w Dr Mo Moy, PGY3
[2017-12-28] MEDS: Collagenase 250 Units/gm Ointment(30 gm) TOP SCH (14:45)
[2017-12-28] MEDS: Insulin Regular 1 UNITS/0.01 ML ML SC SCH ×2 (16:57→22:51)
[2017-12-28] MEDS: Piperacillin/Tazobact 3.375 gm 100 ML IVPB SCH ×2 (18:45→23:30)
[2017-12-28 19:19] VITALS: BMI 43.4
[2017-12-28] MEDS: Oxycodone/Acetaminophen 5/325 mg Tab PO PRN (19:57)
[2017-12-28] MEDS: Vancomycin 1gm in NS 250ml 1 GM/250 ML BAG IVPB SCH (21:08)
[2017-12-29] MEDS: Oxycodone/Acetaminophen 5/325 mg Tab PO PRN ×3 (03:08→17:27)
[2017-12-29] MEDS: Piperacillin/Tazobact 3.375 gm 100 ML IVPB SCH ×3 (05:02→17:28)
[2017-12-29] MEDS: Insulin Regular 1 UNITS/0.01 ML ML SC SCH ×4 (08:00→21:39)
[2017-12-29 08:44] LABS: BASO # 0.02 K/mm3 (0.0-2.0); BASO % 0.2 % (0.0-3.0); EOS # 0.1 (0.0-0.7); EOS % 1.7 % (1.5-5.0); GRAN # 6.05 (1.4-6.5); GRAN % 73.5 % (50.0-68.0); HEMOGLOBIN 8.9 g/dL (12.0-16.0); LYMPH % 12.4 % (22.0-35.0); MEAN CELL VOLUME 84.8 fl (80.0-105.0); MEAN CORPUSCULAR HEMOGLOBIN 26.5 pg (25.0-35.0); MEAN CORPUSCULAR HGB CONC 31.2 g/dl (31.0-37.0); MEAN PLATELET VOLUME 9.1 fl (7.0-11.0); MONO % 12.2 % (1.0-6.0); RBC 3.36 10^6/uL (3.5-6.1); RED CELL DISTRIBUTION WIDTH 16.9 % (11.5-14.5); WHITE BLOOD COUNT 8.2 10^3/ul (4.5-11.0)
--- NOTE | 2017-12-29 08:54 | CP.PCM.PN ---
Subjective - Date & Time of Evaluation Date of Evaluation: 12/29/17 Time of Evaluation: 08:51 - Subjective Subjective: Surgery: Dr. Hassan Pt seen and examined. Resting comfortably in bed. No complaints of pain. Hypoglycemic overnight, but asymptomatic Objective - Vital Signs/Intake and Output Vital Signs (last 24 hours): Temp Pulse Resp BP Pulse Ox 99.1 F 97 H 20 117/70 95 12/28/17 22:44 12/28/17 22:44 12/28/17 22:44 12/28/17 22:44 12/28/17 22:44 Intake and Output: 12/29/17 12/29/17 06:59 18:59 Intake Total 900 Balance 900 - Medications Medications: Current Medications Alprazolam (Xanax) 0.25 mg PO PRN PRN; Protocol PRN Reason: Anxiety Stop: 01/04/18 13:20 Last Admin: 12/28/17 17:23 Dose: 0.25 mg Carvedilol (Coreg) 3.125 mg PO 0800,1800 [facility] Last Admin: 12/28/17 18:44 Dose: 3.125 mg Collagenase (Santyl) 0 gm TOP DAILY [facility] Last Admin: 12/28/17 14:45 Dose: 1 applic Furosemide (Lasix) 40 mg PO DAILY [facility] Hydrochlorothiazide (Microzide) 12.5 mg PO DAILY [facility] Piperacillin Sod/Tazobactam Sod (Zosyn 3.375 In Ns 100ml) 100 mls @ 200 mls/hr IVPB Q6 [facility] PRN Reason: Protocol Stop: 01/04/18 18:01 Last Admin: 12/29/17 05:02 Dose: 200 mls/hr Vancomycin HCl (Vancomycin 1gm) 1 gm in 250 mls @ 167 mls/hr IVPB Q12 [facility] PRN Reason: Protocol Last Admin: 12/28/17 21:08 Dose: 167 mls/hr Insulin Human Regular (Humulin R) 0 units SC ACHS [facility] PRN Reason: Protocol Last Admin: 12/28/17 22:51 Dose: Not Given Lisinopril (Zestril) 10 mg PO DAILY [facility] Arnuity Ellipta ((Home Med)) 1 puff IH QAM [facility] Oxycodone/Acetaminophen (Percocet 5/325 Mg Tab) 1 tab PO Q6H PRN PRN Reason: Pain, moderate (4-7) Stop: 12/31/17 19:29 Last Admin: 12/29/17 03:08 Dose: 1 tab Tramadol HCl (Ultram) 50 mg PO DAILY [facility] - Labs Labs: 12/29/17 07:00 PT 38.0 SECONDS (9.4-12.5) H 12/28/17 11:11 INR 3.23 (0.93-1.08) H 12/28/17 11:11 APTT 47.0 Seconds (25.1-36.5) H 12/28/17 11:11 - Constitutional Appears: Non-toxic, No Acute Distress - Head Exam Head Exam: ATRAUMATIC, NORMOCEPHALIC - Eye Exam Eye Exam: EOMI - ENT Exam ENT Exam: Mucous Membranes Moist - Neck Exam Neck Exam: Full ROM - Respiratory Exam Respiratory Exam: NORMAL BREATHING PATTERN. absent: Accessory Muscle Use, Respiratory Distress - GI/Abdominal Exam Additional comments: left lower pannus, large necrotic area, non-tender, small amount of exudate, no odor - Extremities Exam Extremities Exam: absent: Calf Tenderness, Pedal Edema - Neurological Exam Neurological Exam: Alert, Awake, Oriented x3 Assessment and Plan - Assessment and Plan (Free Text) Assessment: 57F w. necrotic wound on pannus -santyl daily -c/w abx and pain management -will go to [place] on Sunday for debridement -d/w attending [facility] PGY3
[2017-12-29 08:59] LABS: ALB/GLOB RATIO 0.8 (1.1-1.8); ALT/SGPT 28 U/L (7-56); AST/SGOT 27 U/L (14-36); BLOOD UREA NITROGEN 20 mg/dL (7-21); GFR AFRICAN-AMERICAN > 60; GFR NON-AFRICAN AMERICAN > 60
[2017-12-29 09:24] LABS: INR 3.08 (0.93-1.08); PROTHROMBIN TIME 36.3 SECONDS (9.4-12.5)
--- NOTE | 2017-12-29 09:29 | CON ---
DATE: 12/29/2017 PLAN: The patient is seen early this morning in room 574, bed 2. CHIEF COMPLAINT: Abdominal wound infection, was reported by her nurse caring for her at home x1-2 days duration. HISTORY OF PRESENT ILLNESS: This is a 57-year-old female with hypertension, morbid obesity with BMI of 43 and with hypertension, chronic obstructive lung disease, congestive heart failure and nonhealing wound infection and abdominal wound infection with pulmonary emboli and morbid obesity, BMI of 43, who had abdominal wound debridement in the last admission recently and had a wound VAC, was given antibiotics and sent home with the wound VAC and wound care, now returns with reports of purulent material and necrotic tissue in the wound. No fevers have been reported. No chest pain. There are occasional chills. No headaches or blurred vision. No dysuria or frequency. No new back pain and no new rash. No new joint pain. REVIEW OF SYSTEMS: Twelve-point review of systems is performed. PAST MEDICAL HISTORY: Significant for hypertension, chronic obstructive lung disease, diabetes mellitus, congestive heart failure, morbid obesity with BMI of 44, nonhealing abdominal wound, pulmonary emboli. PAST SURGICAL HISTORY: Significant for eye surgery and recent abdominal wound debridement. MEDICATIONS: Reviewed at home which include Coumadin, Lasix, Coreg, Zestril and Glucophage. PHYSICAL EXAMINATION: GENERAL: The patient is in bed, no acute distress, nontoxic, answering questions with a temperature of 99.5 and respiratory rate of 18-20 and heart rate up to 99-100 with blood pressure of 130/60. HEENT: Examination of HEENT is unremarkable. NECK: Supple. LUNGS: Have decreased breath sounds. HEART: Normal S1, S2. ABDOMEN: Soft, nontender. No organomegaly. No rebound. No guarding. No masses. The wound is examined. There is purulent material discharge present in the wound in various areas. There is also a necrotic area in the wound and foul odorous. LABORATORY DATA: Laboratory examination reveals a white count of 9.2, sed rate of 114 and hemoglobin is noted to be at 9.7 and platelets of 314. Chemistries are reviewed. The patient to have a BUN of 9, creatinine of 0.6, procalcitonin 0.05, alk phos is 153. Urinalysis is noted and microbiology reveals the wound cultures are pending and the patient had a chest x-ray. Cardiomegaly and congestive heart failure and Dr. Sami Mix's history and physical examination is reviewed. Dr. John White's ER documentation is reviewed. ASSESSMENT AND PLAN: A 57-year-old female with morbid obesity with a BMI of 44 with hypertension, diabetes and chronic obstructive lung disease, congestive heart failure, pulmonary emboli by history. She is admitted now with infected and cellulitis and purulent material from the abdominal wound infection. We will treat the patient with vancomycin and Zosyn. Abdominal wound will need debridement. Case discussed with the surgical team and the plan is to take the patient to the OR for further debridement and would have to send specimen from the debridement, a tissue biopsy for AFB smears and cultures, fungal smears and cultures and pathology for pyoderma gangrenosum and Gram stain and cultures and routine bacterial cultures. We will treat the patient at this time with vancomycin and Zosyn pending all workup results. Brock Gambino MD
[2017-12-29] MEDS ORDERED: Vancomycin 1gm in NS 250ml 1 GM/250 ML BAG IVPB SCH (10:00)
[2017-12-29] MEDS ORDERED: ARNUITY ELLIPTA IH SCH (10:00)
[2017-12-29] MEDS: Vancomycin 1gm in NS 250ml 1 GM/250 ML BAG IVPB SCH ×2 (10:15→21:38)
[2017-12-29] MEDS: Collagenase 250 Units/gm Ointment(30 gm) TOP SCH (10:18)
--- NOTE | 2017-12-29 12:10 | HP ---
HISTORY OF PRESENT ILLNESS: The patient is a 57 year old woman with a past medical history of morbid obesity who was recently discharged from [facility] after being admitted for surgical management of cellulitis of the abdominal wall with a stage II pressure ulcer after failure of outpatient antimicrobials. The patient was admitted for operative debridement and underwent placement of a wound VAC. She had outpatient followup with Dr. Hassan and the [facility] team [facility] in addition to visiting nursing services. The patient states that for the past 3-4 days she noted increased discharge from her abdominal wound with foul odor. She denied any constitutional symptoms associated with her symptoms. Due to the increasing malodorous discharge she arranged for evaluation with Dr. Hassan. After reevaluation it was decided that she will need further debridement and she was referred to the ED. Upon arrival to the ED she was noted to be afebrile and hemodynamically stable. Laboratory studies obtained were largely unremarkable with the exception of a supratherapeutic INR of 3.2 and hypoglycemia with a serum glucose of 44. She was subsequently admitted to the general medical hinkle for continued surgical management. PAST MEDICAL HISTORY: As per HPI, also dilated cardiomyopathy, hypertension, gio-axuwcqz-[id number] diabetes mellitus, iron deficiency anemia, anxiety disorder and history of provoked DVT/PE s/p IVC filter placement. PAST SURGICAL HISTORY: As per HPI, also IVC filter placement. ALLERGIES: NKDA. MEDICATIONS: Coumadin 4 mg p.o. daily, Carvedilol 3.125 mg p.o. b.i.d., Lasix 40 mg p.o. daily, Xanax 0.25 mg p.o. daily, Lisinopril/HCTZ 10/12.5 mg p.o. daily and Percocet 5/325 mg 1 tab p.o. every 6 hours p.r.n. pain. FAMILY HISTORY: Noncontributory. SOCIAL HISTORY: No history of toxic habits. REVIEW OF SYSTEMS: A 14-point review of systems was negative except as per HPI. PHYSICAL EXAMINATION: VITAL SIGNS: Temperature 99.1, pulse 82, blood pressure 117/74, respiratory rate 20, oxygen saturation 96% on room air. GENERAL: Morbidly obese woman sitting up in her chair in no apparent distress. HEENT: PERRL, EOMI. No scleral icterus. No conjunctival pallor. NECK: Supple with full range of motion. No JVD. CARDIOVASCULAR: Regular rate and rhythm. Normal S1 and S2. LUNGS: Clear to auscultation. ABDOMEN: Obese, normoactive bowel sounds. Wound VAC in place. Abdominal wound with surrounding erythema. EXTREMITIES: Trace lower extremity edema bilaterally. NEUROLOGIC: Awake, alert, and oriented x3. No focal motor deficits. LABORATORY DATA: Morning labs are pending. ASSESSMENT: The patient is a 57 year old woman with multiple medical comorbidities including morbid obesity who was recently discharged after an admission for management of a stage II nonhealing pressure ulcer to the abdominal wall s/p OR debridement s/p placement of wound VAC who was found to have increasing erythema and discharge from her abdominal wound and was sent to the ED for surgical reevaluation for possible repeat debridement. PLAN: 1. Cellulitis of the abdominal wall with stage II pressure ulcer s/p OR debridement s/p placement of wound VAC. Input from Dr. Hassan and surgical team greatly appreciated. The patient will likely require repeat operative debridement. Input from Dr. Ross of [place] greatly appreciated. Continue Vancomycin 1 g IV every 12 hours and Zosyn 3.375 g IV every 6 hours. Continue with local wound care. 2. Dilated cardiomyopathy with an EF of 20%. Continue Coreg 3.125 mg p.o. b.i.d., Lasix 40 mg p.o. daily, Lisinopril 10 mg p.o. daily, and HCTZ 12.5 mg p.o. daily. Coumadin is on hold in anticipation of possible surgical debridement however when okay as per the surgical team, we will resume Coumadin 4 mg p.o. daily with goal INR of 2-3. 3. 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 As above, Coumadin is on hold in anticipation of OR. Coumadin to be resumed when okay from surgical standpoint with goal INR of 2-3. She will require lifelong anticoagulation therapy in the setting of dilated cardiomyopathy with an EF of 20%. 4. Hypertension. Blood pressure controlled. Continue Carvedilol 3.125 mg p.o. b.i.d., Lisinopril 10 mg p.o. daily and HCTZ 12.5 mg p.o. daily. 5. Iron deficiency anemia. Labs demonstrate Hb at the patient's baseline. The patient declined Feosol due to constipation. 6. NIDDM, diet controlled, with most recent A1c of 5.9. Continue to monitor fingersticks before every meal and at bedtime and if the patient remains hypoglycemic (likely secondary to her infection), she may require gentle IV fluid hydration. 7. Anxiety disorder. Continue Xanax 0.25 mg p.o. daily as needed. 8. Morbid obesity. 9. Prophylaxis. GI prophylaxis not indicated as the patient is eating. DVT prophylaxis not indicated as the patient is ambulatory. CODE STATUS: Full code. Jorge Nguyen MD MTDD
[2017-12-30] MEDS: Oxycodone/Acetaminophen 5/325 mg Tab PO PRN ×4 (04:18→23:58)
[2017-12-30] MEDS: Piperacillin/Tazobact 3.375 gm 100 ML IVPB SCH ×5 (05:52→23:58)
[2017-12-30] MEDS: UMECLIDINIUM BRM IH SCH (06:22)
[2017-12-30] MEDS: VILANTEROL TR IH SCH (06:22)
[2017-12-30] MEDS: ARNUITY ELLIPTA IH SCH (06:22)
[2017-12-30 07:27] LABS: BASO # 0.02 K/mm3 (0.0-2.0); BASO % 0.2 % (0.0-3.0); EOS # 0.3 (0.0-0.7); EOS % 3.2 % (1.5-5.0); GRAN # 6.07 (1.4-6.5); GRAN % 72.3 % (50.0-68.0); HEMOGLOBIN 8.7 g/dL (12.0-16.0); LYMPH # 1.1 (1.2-3.4); LYMPH % 13.1 % (22.0-35.0); MEAN CELL VOLUME 84.7 fl (80.0-105.0); MEAN CORPUSCULAR HEMOGLOBIN 27.1 pg (25.0-35.0); MEAN PLATELET VOLUME 8.9 fl (7.0-11.0); MONO # 0.9 (0.1-0.6); MONO % 11.2 % (1.0-6.0); RBC 3.21 10^6/uL (3.5-6.1); RED CELL DISTRIBUTION WIDTH 16.8 % (11.5-14.5); WHITE BLOOD COUNT 8.4 10^3/ul (4.5-11.0)
[2017-12-30 07:48] LABS: ALB/GLOB RATIO 0.8 (1.1-1.8); ALBUMIN 2.9 g/dL (3.0-4.8); ALT/SGPT 23 U/L (7-56); AST/SGOT 35 U/L (14-36); BLOOD UREA NITROGEN 22 mg/dL (7-21); CALCIUM 8.1 mg/dL (8.4-10.5); GFR AFRICAN-AMERICAN > 60; GFR NON-AFRICAN AMERICAN > 60
[2017-12-30] MEDS: Insulin Regular 1 UNITS/0.01 ML ML SC SCH ×4 (10:34→22:33)
[2017-12-30] MEDS: Vancomycin 1gm in NS 250ml 1 GM/250 ML BAG IVPB SCH ×2 (10:42→21:40)
--- NOTE | 2017-12-30 11:42 | PN ---
DATE: SUBJECTIVE: The patient is in bed in 574, bed 2. No fevers and chills. PHYSICAL EXAMINATION: VITAL SIGNS: Temperature is 98, blood pressure is 116/70, respiratory rate of 16. HEENT: Unremarkable. NECK: Supple. LUNGS: Have decreased breath sounds. HEART: Normal S1, S2. ABDOMEN: Soft, nontender. LABORATORY EXAMINATION: Reveals a white count of 8.4, hemoglobin of 8. Sed rate of 121. Chemistries reveals a BUN of 22, creatinine of 0.8. Procalcitonin is less than 0.05. Urinalysis is noted. Microbiology: Abdominal culture is gram-negative gal and coronary bacterium. Surgical progress note is reviewed. ASSESSMENT AND PLAN: A 57-year-old female with morbid obesity, BMI of 44, hypertension, pulmonary emboli by history. Admitted with infected and cellulitis and purulent material from the abdominal wound infection, currently on vancomycin and Zosyn. The patient is for possible surgery. Again, we would recommend biopsy for AFB smears and cultures, fungal smears and cultures and Gram stain and routine bacterial cultures in addition of pathology rule out pyoderma gangrenosum and we will follow with you. Brock Gambino MD
--- NOTE | 2017-12-30 12:05 | CP.PCM.PN ---
Subjective - Date & Time of Evaluation Date of Evaluation: 12/30/17 Time of Evaluation: 09:15 - Subjective Subjective: SUBJECTIVE: No acute events overnight. Hypoglycemia resolved. She is pending OR debridement tomorrow. OBJECTIVE: VS: T 97.9, P 87, BP 110/70, RR 20, O2 97% RA Gen: Morbidly obese woman lying in bed in NAD HEENT: PERRL, EOMI, no scleral icterus. Neck: no JVD Lungs: CTA CV: RRR, normal S1, S2 Abd: NABS, soft, (+) TTP at the wound vac site with mild erythema noted Ext: (+) trace b/l LE edema Neuro: AAO x 3, no focal deficits LABORATORY DATA: Hb 8.7, chemistry unremarkable ASSESSMENT: The patient is a 57 year old woman with multiple medical comorbidities who was admitted for surgical management of a stage II non-healing pressure ulcer to the abdominal wall s/p wound vac placement. PLAN: 1. Cellulitis of abdominal wall s/p OR debridement s/p wound vac. Input from surgical team noted. Patient is pending repeat OR debridement tomorrow. Input from Dr. Gambino appreciated. Continue with current antimicrobials. 2. Dilated cardiomyopathy with an EF of 20%. Continue current medications. 3. History of DVT and PE s/p IVC filter. Coumadin on hold in anticipation of OR. 4. HTN. BP controlled, continue current medications. 5. Fe-deficiency anemia. H/H at baseline, continue to monitor CBC daily. 6. NIDDM with most recent A1c of 5.8. Hypoglycemia resolved. 7. Anxiety disorder. Continue Xanax. 8. Morbid obesity. CODE STATUS: Full Code Objective - Vital Signs/Intake and Output Vital Signs (last 24 hours): Temp Pulse Resp BP Pulse Ox 97.9 F 87 18 110/70 97 12/29/17 22:00 12/30/17 10:44 12/29/17 22:00 12/30/17 10:44 12/29/17 22:00 Intake and Output: 12/30/17 12/30/17 06:59 18:59 Intake Total 900 120 Balance 900 120 - Medications Medications: Current Medications Alprazolam (Xanax) 0.25 mg PO PRN PRN; Protocol PRN Reason: Anxiety Stop: 01/04/18 13:20 Last Admin: 12/28/17 17:23 Dose: 0.25 mg Carvedilol (Coreg) 3.125 mg PO 0800,1800 [facility] Last Admin: 12/30/17 10:44 Dose: 3.125 mg Collagenase (Santyl) 0 gm TOP DAILY [facility] Last Admin: 12/29/17 10:18 Dose: 1 applic Furosemide (Lasix) 40 mg PO DAILY [facility] Last Admin: 12/30/17 10:42 Dose: 40 mg Home Med (Home Med) 1 unit IH QAM [facility] Last Admin: 12/30/17 06:22 Dose: 1 unit Home Med (Home Med) 1 unit IH QAM [facility] Last Admin: 12/30/17 06:22 Dose: 1 unit Hydrochlorothiazide (Microzide) 12.5 mg PO DAILY [facility] Last Admin: 12/30/17 10:40 Dose: 12.5 mg Piperacillin Sod/Tazobactam Sod (Zosyn 3.375 In Ns 100ml) 100 mls @ 200 mls/hr IVPB Q6 [facility] PRN Reason: Protocol Stop: 01/04/18 18:01 Last Admin: 12/30/17 05:52 Dose: 200 mls/hr Vancomycin HCl (Vancomycin 1gm) 1 gm in 250 mls @ 167 mls/hr IVPB Q12 [facility] PRN Reason: Protocol Last Admin: 12/30/17 10:42 Dose: 167 mls/hr Insulin Human Regular (Humulin R) 0 units SC ACHS [facility] PRN Reason: Protocol Last Admin: 12/30/17 10:34 Dose: Not Given Lisinopril (Zestril) 10 mg PO DAILY [facility] Last Admin: 12/30/17 10:40 Dose: 10 mg Oxycodone/Acetaminophen (Percocet 5/325 Mg Tab) 1 tab PO Q6H PRN PRN Reason: Pain, moderate (4-7) Stop: 12/31/17 19:29 Last Admin: 12/30/17 10:41 Dose: 1 tab Tramadol HCl (Ultram) 50 mg PO DAILY [facility] Last Admin: 12/30/17 10:37 Dose: Not Given - Labs Labs: 12/30/17 07:00 12/30/17 07:00 PT 36.3 SECONDS (9.4-12.5) H 12/29/17 08:00 INR 3.08 (0.93-1.08) H 12/29/17 08:00 APTT 40.0 Seconds (25.1-36.5) H 12/29/17 08:00
[2017-12-30] MEDS: Collagenase 250 Units/gm Ointment(30 gm) TOP SCH (17:40)
--- NOTE | 2017-12-30 17:45 | CP.PCM.PN ---
Subjective - Date & Time of Evaluation Date of Evaluation: 12/30/17 Time of Evaluation: 06:55 - Subjective Subjective: Gen Surg: Dr Hassan Pt S&E. JAMISON. Dressing changed at bedside. Pt has no complaints. Highly anxious for surgery tomorrow. Denies f/c, n/v, sob or chest pain. Objective - Vital Signs/Intake and Output Vital Signs (last 24 hours): Temp Pulse Resp BP Pulse Ox 98.6 F 68 20 117/66 98 12/30/17 14:00 12/30/17 17:35 12/30/17 14:00 12/30/17 14:00 12/30/17 14:00 Intake and Output: 12/30/17 12/30/17 06:59 18:59 Intake Total 900 1020 Balance 900 1020 - Medications Medications: Current Medications Alprazolam (Xanax) 0.25 mg PO PRN PRN; Protocol PRN Reason: Anxiety Stop: 01/04/18 13:20 Last Admin: 12/28/17 17:23 Dose: 0.25 mg Carvedilol (Coreg) 3.125 mg PO 0800,1800 [facility] Last Admin: 12/30/17 17:35 Dose: 3.125 mg Collagenase (Santyl) 0 gm TOP DAILY [facility] Last Admin: 12/30/17 17:40 Dose: 1 applic Furosemide (Lasix) 40 mg PO DAILY [facility] Last Admin: 12/30/17 10:42 Dose: 40 mg Home Med (Home Med) 1 unit IH QAM [facility] Last Admin: 12/30/17 06:22 Dose: 1 unit Home Med (Home Med) 1 unit IH QAM [facility] Last Admin: 12/30/17 06:22 Dose: 1 unit Hydrochlorothiazide (Microzide) 12.5 mg PO DAILY [facility] Last Admin: 12/30/17 10:40 Dose: 12.5 mg Piperacillin Sod/Tazobactam Sod (Zosyn 3.375 In Ns 100ml) 100 mls @ 200 mls/hr IVPB Q6 [facility] PRN Reason: Protocol Stop: 01/04/18 18:01 Last Admin: 12/30/17 17:33 Dose: 200 mls/hr Vancomycin HCl (Vancomycin 1gm) 1 gm in 250 mls @ 167 mls/hr IVPB Q12 [facility] PRN Reason: Protocol Last Admin: 12/30/17 10:42 Dose: 167 mls/hr Insulin Human Regular (Humulin R) 0 units SC ACHS [facility] PRN Reason: Protocol Last Admin: 12/30/17 17:31 Dose: 3 units Lisinopril (Zestril) 10 mg PO DAILY [facility] Last Admin: 12/30/17 10:40 Dose: 10 mg Oxycodone/Acetaminophen (Percocet 5/325 Mg Tab) 1 tab PO Q6H PRN PRN Reason: Pain, moderate (4-7) Stop: 12/31/17 19:29 Last Admin: 12/30/17 17:34 Dose: 1 tab Tramadol HCl (Ultram) 50 mg PO DAILY [facility] Last Admin: 12/30/17 10:37 Dose: Not Given - Labs Labs: 12/30/17 07:00 12/30/17 07:00 PT 36.3 SECONDS (9.4-12.5) H 12/29/17 08:00 INR 3.08 (0.93-1.08) H 12/29/17 08:00 APTT 40.0 Seconds (25.1-36.5) H 12/29/17 08:00 - Constitutional Appears: Non-toxic, No Acute Distress - ENT Exam ENT Exam: Normal Exam - Respiratory Exam Respiratory Exam: absent: Accessory Muscle Use, Respiratory Distress - Cardiovascular Exam Cardiovascular Exam: REGULAR RHYTHM. absent: Tachycardia - GI/Abdominal Exam GI & Abdominal Exam: Soft. absent: Distended, Tenderness Additional comments: area of necrosis with more exudate, minimal surrounding erythema - Neurological Exam Neurological Exam: Alert, Awake, Oriented x3 - Psychiatric Exam Psychiatric exam: Normal Affect, Normal Mood Assessment and Plan - Assessment and Plan (Free Text) Assessment: 57F with necrotic abdominal wound Plan: npo @ [place] plan for OR debridement tomorrow d/w Dr Mo Moy, PGY3
[2017-12-31] MEDS: Piperacillin/Tazobact 3.375 gm 100 ML IVPB SCH ×3 (06:32→17:51)
[2017-12-31] MEDS: VILANTEROL TR IH SCH ×2 (06:55→09:54)
[2017-12-31] MEDS: UMECLIDINIUM BRM IH SCH ×2 (06:55→09:54)
[2017-12-31] MEDS: ARNUITY ELLIPTA IH SCH ×2 (06:55→09:54)
[2017-12-31 07:32] LABS: BASO # 0.02 K/mm3 (0.0-2.0); BASO % 0.3 % (0.0-3.0); EOS # 0.4 (0.0-0.7); EOS % 5.7 % (1.5-5.0); GRAN # 4.95 (1.4-6.5); GRAN % 65.2 % (50.0-68.0); HEMOGLOBIN 8.8 g/dL (12.0-16.0); LYMPH # 1.4 (1.2-3.4); LYMPH % 18.8 % (22.0-35.0); MEAN CORPUSCULAR HEMOGLOBIN 26.9 pg (25.0-35.0); MEAN CORPUSCULAR HGB CONC 31.7 g/dl (31.0-37.0); MONO # 0.8 (0.1-0.6); RBC 3.27 10^6/uL (3.5-6.1); RED CELL DISTRIBUTION WIDTH 16.9 % (11.5-14.5); WHITE BLOOD COUNT 7.6 10^3/ul (4.5-11.0)
[2017-12-31 07:47] LABS: ALB/GLOB RATIO 0.8 (1.1-1.8); ALT/SGPT 20 U/L (7-56); AST/SGOT 31 U/L (14-36); BLOOD UREA NITROGEN 21 mg/dL (7-21); CALCIUM 8.2 mg/dL (8.4-10.5); GFR AFRICAN-AMERICAN > 60; GFR NON-AFRICAN AMERICAN > 60
[2017-12-31 07:52] LABS: INR 2.03 (0.93-1.08); PARTIAL THROMBOPLASTIN TIME 31.7 Seconds (25.1-36.5); PROTHROMBIN TIME 23.7 SECONDS (9.4-12.5)
[2017-12-31] MEDS: Insulin Regular 1 UNITS/0.01 ML ML SC SCH ×4 (07:59→22:12)
[2017-12-31] MEDS: Oxycodone/Acetaminophen 5/325 mg Tab PO PRN ×2 (08:20→15:25)
[2017-12-31] MEDS: Collagenase 250 Units/gm Ointment(30 gm) TOP SCH (09:54)
[2017-12-31] MEDS: Vancomycin 1gm in NS 250ml 1 GM/250 ML BAG IVPB SCH ×2 (10:15→21:33)
--- NOTE | 2017-12-31 11:17 | CP.PCM.PCO ---
Physician Communication Note - Physician Communication Note Physician Communication Note: OR postponed till tomorrow 01/01
--- NOTE | 2017-12-31 11:23 | PN ---
SUBJECTIVE: The patient was seen and examined at bedside on the general medical [facility]inkle. No acute events overnight. She remains afebrile and hemodynamically stable. She is pending repeat surgical debridement of her anterior abdominal wall wound. PHYSICAL EXAMINATION VITAL SIGNS: Temperature 98.2, pulse 82, blood pressure 123/80, respiratory rate 20, oxygen saturation 97% on room air. GENERAL: Morbidly obese woman, lying in bed, in no apparent distress. HEENT: PERRL. EOMI. No scleral icterus. No conjunctival pallor. NECK: Supple with full range of motion. No JVD. LUNGS: Clear to auscultation. CARDIOVASCULAR: Regular rate and rhythm. Normal S1 and S2. ABDOMEN: Obese. Normoactive bowel sounds. Abdominal wound with erythema and scant discharge. EXTREMITIES: Trace lower extremity edema bilaterally. NEUROLOGIC: Awake, alert, and oriented x3. No focal motor deficits. LABORATORY DATA: WBC 7.6, hemoglobin 8.8, hematocrit 28, platelets 345. Chemistry reviewed and unremarkable. ASSESSMENT: The patient is a 57 year old woman with multiple medical comorbidities including morbid obesity who was recently discharged after an admission for management of a stage II nonhealing pressure ulcer to the abdominal wall s/p OR debridement s/p placement of wound VAC who was found to have increasing erythema and discharge from her abdominal wound and was sent to the ED for surgical reevaluation and possible repeat debridement. PLAN: 1. Cellulitis of the abdominal wall with stage II pressure ulcer s/p OR debridement s/p wound VAC. Input from the surgical team noted and the patient is scheduled for a repeat OR debridement today. Input from Dr. Gambino of [place] noted and appreciated. Continue antimicrobials. 2. Dilated cardiomyopathy with an EF of 20%. Continue Coreg 3.125 mg p.o. b.i.d., Lasix 40 mg p.o. daily, Lisinopril 10 mg p.o. daily and HCTZ 12.5 mg p.o. daily. Coumadin is on hold in anticipation of OR. We will resume Coumadin when okay from surgical standpoint with goal INR of 2-3. 3. 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 As above, Coumadin is on hold in anticipation of OR and will be resumed when okay from surgical standpoint. She will require lifelong anticoagulation therapy in the setting of dilated cardiomyopathy with an EF of 20%. 4. Hypertension. Blood pressure controlled. Continue carvedilol 3.125 mg p.o. b.i.d., Lisinopril 10 mg p.o. daily and HCTZ 12.5 mg p.o. daily. 5. Iron deficiency anemia. Labs demonstrate Hb at baseline. She declines Feosol due to constipation. 6. NIDDM, diet controlled, with most recent A1c of 5.9. Continue to monitor fingersticks before every meal and at bedtime. 7. Anxiety disorder. Continue Xanax 0.25 mg p.o. daily. 8. Morbid obesity. 9. Prophylaxis. GI prophylaxis is not indicated as the patient is eating. DVT prophylaxis is not indicated as the patient is ambulatory. CODE STATUS: Full code. Jorge Nguyen MD MTDDarío
[2017-12-31 17:08] LABS: URINE BILIRUBIN NEGATIVE (NEGATIVE); URINE BLOOD LARGE (NEGATIVE); URINE GLUCOSE (UA) NEGATIVE (NEGATIVE); URINE LEUKOCYTE ESTERASE NEGATIVE Leu/uL (NEGATIVE); URINE PROTEIN 30 mg/dL (<30 mg/dL)
[2017-12-31 17:14] LABS: URINE APPEARANCE SL CLOUDY (CLEAR); URINE COLOR YELLOW (YELLOW)
[2017-12-31 17:31] LABS: URINE BACTERIA MOD (NEG); URINE RBC TNTC /hpf (0-2)
--- NOTE | 2017-12-31 19:28 | CP.PCM.PN ---
Subjective - Date & Time of Evaluation Date of Evaluation: 12/31/17 Time of Evaluation: 11:30 - Subjective Subjective: Still having pain around the abdominal wound area and worried since she was supposed to have debridement today but was postponed. No fevers, no diarrhea. Objective - Vital Signs/Intake and Output Vital Signs (last 24 hours): Temp Pulse Resp BP Pulse Ox 98.2 F 82 20 118/70 97 12/31/17 08:14 12/31/17 08:14 12/31/17 08:14 12/31/17 10:15 12/31/17 08:14 Intake and Output: 12/31/17 12/31/17 06:59 18:59 Intake Total 800 Balance 800 - Medications Medications: Current Medications Acetaminophen (Tylenol 325mg Tab) 650 mg PO Q4H PRN PRN Reason: Fever >100.4 F Last Admin: 12/30/17 22:59 Dose: 650 mg Alprazolam (Xanax) 0.25 mg PO PRN PRN; Protocol PRN Reason: Anxiety Stop: 01/04/18 13:20 Last Admin: 12/31/17 01:30 Dose: 0.25 mg Carvedilol (Coreg) 3.125 mg PO 0800,1800 [facility] Last Admin: 12/31/17 08:14 Dose: 3.125 mg Collagenase (Santyl) 0 gm TOP DAILY [facility] Last Admin: 12/31/17 09:54 Dose: Not Given Furosemide (Lasix) 40 mg PO DAILY [facility] Last Admin: 12/31/17 10:22 Dose: Not Given Home Med (Home Med) 1 unit [facility] Last Admin: 12/31/17 09:54 Dose: Not Given Home Med (Home Med) 1 unit [facility] Last Admin: 12/31/17 09:54 Dose: Not Given Hydrochlorothiazide (Microzide) 12.5 mg PO DAILY [facility] Last Admin: 12/31/17 10:22 Dose: Not Given Piperacillin Sod/Tazobactam Sod (Zosyn 3.375 In Ns 100ml) 100 mls @ 200 mls/hr IVPB Q6 [facility] PRN Reason: Protocol Stop: 01/04/18 18:01 Last Admin: 12/31/17 06:32 Dose: 200 mls/hr Vancomycin HCl (Vancomycin 1gm) 1 gm in 250 mls @ 167 mls/hr IVPB Q12 [facility] PRN Reason: Protocol Last Admin: 12/31/17 10:15 Dose: 167 mls/hr Insulin Human Regular (Humulin R) 0 units SC ACHS [facility] PRN Reason: Protocol Last Admin: 12/31/17 07:59 Dose: Not Given Lisinopril (Zestril) 10 mg PO DAILY [facility] Last Admin: 12/31/17 10:15 Dose: 10 mg Oxycodone/Acetaminophen (Percocet 5/325 Mg Tab) 1 tab PO Q6H PRN PRN Reason: Pain, moderate (4-7) Stop: 12/31/17 19:29 Last Admin: 12/31/17 08:20 Dose: 1 tab Tramadol HCl (Ultram) 50 mg PO DAILY [facility] Last Admin: 12/31/17 10:22 Dose: Not Given - Labs Labs: 12/31/17 07:00 12/31/17 07:00 PT 23.7 SECONDS (9.4-12.5) H 12/31/17 07:00 INR 2.03 (0.93-1.08) H 12/31/17 07:00 APTT 31.7 Seconds (25.1-36.5) 12/31/17 07:00 - Constitutional Appears: Chronically Ill - Head Exam Head Exam: NORMAL INSPECTION - Respiratory Exam Respiratory Exam: Decreased Breath Sounds - Cardiovascular Exam Cardiovascular Exam: +S1, +S2 - GI/Abdominal Exam GI & Abdominal Exam: Soft. absent: Tenderness Additional comments: dressings in place Assessment and Plan - Assessment and Plan (Free Text) Plan: Assessment abdominal wound infection R/O atypical mycobacterial infection R/O pyoderma gangrenosum history of acute pulmonary embolism, on anticoagulation HTN DM morbid obesity with BMI 44 Plan continue Vancomycin and Zosyn - follow up plans for debridement and recommend to do biopsy of the abdominal wound and send cultures for AFB, fungi, bacteria will continue to monitor clinically
[2017-12-31] MEDS ORDERED: Oxycodone/Acetaminophen 5/325 mg Tab PO STA (21:26)
--- NOTE | 2017-12-31 21:27 | CP.PCM.PN ---
Subjective - Date & Time of Evaluation Date of Evaluation: 12/31/17 Time of Evaluation: 21:26 - Subjective Subjective: Patient was seen at bedside. States that she has pain in left side of abdomen, 10/10 , no radiation, no other complaints. Nurse had called and told that percocet has been discontinued . Denies nausea, vomiting, diarrhoea. Medical record was reviewed. This 57 year old white woman was admitted with abdominal wall cellulitis/ infection for debridement. Has PMH of HTN, NIDDM, dilated cardiomyopathy, anxiety, iron deficiency anemia, DVT,PE, S/P IVC filter placement. Objective - Vital Signs/Intake and Output Vital Signs (last 24 hours): Temp Pulse Resp BP Pulse Ox 98.6 F 85 20 118/70 95 12/31/17 14:00 12/31/17 14:00 12/31/17 14:00 12/31/17 17:51 12/31/17 14:00 Intake and Output: 12/31/17 01/01/18 18:59 06:59 Intake Total 480 Balance 480 - Medications Medications: Current Medications Acetaminophen (Tylenol 325mg Tab) 650 mg PO Q4H PRN PRN Reason: Fever >100.4 F Last Admin: 12/30/17 22:59 Dose: 650 mg Alprazolam (Xanax) 0.25 mg PO PRN PRN; Protocol PRN Reason: Anxiety Stop: 01/04/18 13:20 Last Admin: 12/31/17 01:30 Dose: 0.25 mg Carvedilol (Coreg) 3.125 mg PO 0800,1800 [facility] Last Admin: 12/31/17 17:51 Dose: 3.125 mg Collagenase (Santyl) 0 gm TOP DAILY [facility] Last Admin: 12/31/17 09:54 Dose: Not Given Furosemide (Lasix) 40 mg PO DAILY [facility] Last Admin: 12/31/17 10:22 Dose: Not Given Home Med (Home Med) 1 unit [facility] Last Admin: 12/31/17 09:54 Dose: Not Given Home Med (Home Med) 1 unit [facility] Last Admin: 12/31/17 09:54 Dose: Not Given Hydrochlorothiazide (Microzide) 12.5 mg PO DAILY [facility] Last Admin: 12/31/17 10:22 Dose: Not Given Piperacillin Sod/Tazobactam Sod (Zosyn 3.375 In Ns 100ml) 100 mls @ 200 mls/hr IVPB Q6 [facility] PRN Reason: Protocol Stop: 01/04/18 18:01 Last Admin: 12/31/17 17:51 Dose: 200 mls/hr Vancomycin HCl (Vancomycin 1gm) 1 gm in 250 mls @ 167 mls/hr IVPB Q12 [facility] PRN Reason: Protocol Last Admin: 12/31/17 10:15 Dose: 167 mls/hr Insulin Human Regular (Humulin R) 0 units SC ACHS [facility] PRN Reason: Protocol Last Admin: 12/31/17 16:20 Dose: Not Given Lisinopril (Zestril) 10 mg PO DAILY [facility] Last Admin: 12/31/17 10:15 Dose: 10 mg Oxycodone/Acetaminophen (Percocet 5/325 Mg Tab) 1 tab PO STAT STA Stop: 12/31/17 21:27 Tramadol HCl (Ultram) 50 mg PO DAILY [facility] Last Admin: 12/31/17 10:22 Dose: Not Given - Labs Labs: 12/31/17 07:00 12/31/17 07:00 PT 23.7 SECONDS (9.4-12.5) H 12/31/17 07:00 INR 2.03 (0.93-1.08) H 12/31/17 07:00 APTT 31.7 Seconds (25.1-36.5) 12/31/17 07:00 Micro Results 12/28/17 11:41 Blood Blood Culture - Preliminary NO GROWTH AFTER 3 DAYS 12/28/17 11:11 Blood Blood Culture - Preliminary NO GROWTH AFTER 3 DAYS 12/28/17 11:55 Abdomen Gram Stain - Final 12/28/17 11:55 Abdomen Wound Culture - Final Escherichia Coli Corynebacterium Species Most Recent Lab Values WBC 7.6 10^3/ul (4.5-11.0) 12/31/17 07:00 RBC 3.27 10^6/uL (3.5-6.1) L 12/31/17 07:00 Hgb 8.8 g/dL (12.0-16.0) L 12/31/17 07:00 Hct 27.8 % (36.0-48.0) L 12/31/17 07:00 MCV 85.0 fl (80.0-105.0) 12/31/17 07:00 MCH 26.9 pg (25.0-35.0) 12/31/17 07:00 MCHC 31.7 g/dl (31.0-37.0) 12/31/17 07:00 RDW 16.9 % (11.5-14.5) H 12/31/17 07:00 Plt Count 345 10^3/uL (120.0-450.0) 12/31/17 07:00 MPV 9.0 fl (7.0-11.0) 12/31/17 07:00 Gran % 65.2 % (50.0-68.0) 12/31/17 07:00 Lymph % (Auto) 18.8 % (22.0-35.0) L 12/31/17 07:00 Levy % (Auto) 10.0 % (1.0-6.0) H 12/31/17 07:00 Eos % (Auto) 5.7 % (1.5-5.0) H 12/31/17 07:00 Baso % (Auto) 0.3 % (0.0-3.0) 12/31/17 07:00 Gran # 4.95 (1.4-6.5) 12/31/17 07:00 Lymph # (Auto) 1.4 (1.2-3.4) 12/31/17 07:00 Levy # (Auto) 0.8 (0.1-0.6) H 12/31/17 07:00 Eos # (Auto) 0.4 (0.0-0.7) 12/31/17 07:00 Baso # (Auto) 0.02 K/mm3 (0.0-2.0) 12/31/17 07:00 ESR 121 mm/hr (0.0-20.0) H 12/29/17 08:00 PT 23.7 SECONDS (9.4-12.5) H 12/31/17 07:00 INR 2.03 (0.93-1.08) H 12/31/17 07:00 APTT 31.7 Seconds (25.1-36.5) 12/31/17 07:00 pO2 137 mm/Hg (30-55) H 12/28/17 11:11 VBG pH 7.52 (7.32-7.43) H 12/28/17 11:11 VBG pCO2 38.0 (40-60) L 12/28/17 11:11 VBG HCO3 31.0 mmol/l (21-28) H 12/28/17 11:11 VBG Total CO2 32.2 mmol.L (22-28) H 12/28/17 11:11 VBG O2 Sat (Calc) 99.7 % (40-65) H 12/28/17 11:11 VBG Base Excess 7.7 mmol/L (0.0-2.0) H 12/28/17 11:11 VBG Potassium 3.9 mmol/L (3.6-5.2) 12/28/17 11:11 Sodium 135.0 mmol/L (132-148) 12/28/17 11:11 Chloride 102.0 mmol/L (98-107) 12/28/17 11:11 Glucose 46 mg/dl (65-105) L 12/28/17 11:11 Lactate 1.8 mmol/L (0.7-2.1) 12/28/17 11:11 FiO2 21.0 % 12/28/17 11:11 Sodium 140 mmol/L (132-148) 12/31/17 07:00 Potassium 4.0 mmol/L (3.6-5.0) 12/31/17 07:00 Chloride 103 mmol/L (98-107) 12/31/17 07:00 Carbon Dioxide 29 mmol/L (21-33) 12/31/17 07:00 Anion Gap 13 (10-20) 12/31/17 07:00 BUN 21 mg/dL (7-21) 12/31/17 07:00 Creatinine 0.7 mg/dl (0.7-1.2) 12/31/17 07:00 Est GFR ( Amer) > 60 12/31/17 07:00 Est GFR (Non-Af Amer) > 60 12/31/17 07:00 POC Glucose (mg/dL) 192 mg/dL (65-110) H 12/31/17 15:46 Random Glucose 139 mg/dL (70-110) H 12/31/17 07:00 Serum Osmolality 277 mosm/kg (272-300) 12/28/17 11:11 Calcium 8.2 mg/dL (8.4-10.5) L 12/31/17 07:00 Phosphorus 4.1 mg/dL (2.5-4.5) 12/28/17 11:11 Magnesium 1.8 mg/dL (1.7-2.2) 12/28/17 11:11 Total Bilirubin 0.5 mg/dL (0.2-1.3) 12/31/17 07:00 AST 31 U/L (14-36) 12/31/17 07:00 ALT 20 U/L (7-56) 12/31/17 07:00 Alkaline Phosphatase 151 U/L (38-126) H 12/31/17 07:00 C-Reactive Protein 84.40 mg/L (0.0-9.9) H 12/29/17 06:20 C-React Prot High Sens > 15.00 mg/L (1.00-3.00) H 12/28/17 11:55 Total Protein 6.7 g/dL (5.8-8.3) 12/31/17 07:00 Albumin 3.0 g/dL (3.0-4.8) 12/31/17 07:00 Globulin 3.8 gm/dL 12/31/17 07:00 Albumin/Globulin Ratio 0.8 (1.1-1.8) L 12/31/17 07:00 Procalcitonin 0.05 NG/ML (0.19-0.49) L 12/31/17 10:51 Venous Blood Potassium 3.9 mmol/L (3.6-5.2) 12/28/17 11:11 Urine Color Yellow (YELLOW) 12/31/17 16:30 Urine Appearance Sl cloudy (CLEAR) 12/31/17 16:30 Urine pH 6.0 (4.7-8.0) 12/31/17 16:30 Ur Specific Stuart 1.020 (1.005-1.035) 12/31/17 16:30 Urine Protein 30 mg/dL (<30 mg/dL) H 12/31/17 16:30 Urine Glucose (UA) Negative mg/dL (NEGATIVE) 12/31/17 16:30 Urine Ketones Trace mg/dL (NEGATIVE) H 12/31/17 16:30 Urine Blood Large (NEGATIVE) H 12/31/17 16:30 Urine Nitrate Negative (NEGATIVE) 12/31/17 16:30 Urine Bilirubin Negative (NEGATIVE) 12/31/17 16:30 Urine Urobilinogen 2.0 E.U./dL (<1 E.U./dL) H 12/31/17 16:30 Ur Leukocyte Esterase Negative Teodoro/uL (NEGATIVE) 12/31/17 16:30 Urine RBC Tntc /hpf (0-2) 12/31/17 16:30 Urine WBC 10 - 15 /hpf (0-6) 12/31/17 16:30 Ur Epithelial Cells 10 - 12 /hpf (0-5) 12/31/17 16:30 Urine Bacteria Mod (NEG) 12/31/17 16:30 - Constitutional Appears: Well, No Acute Distress - Head Exam Head Exam: ATRAUMATIC, NORMAL INSPECTION, NORMOCEPHALIC - Eye Exam Eye Exam: Normal appearance - ENT Exam ENT Exam: Normal External Ear Exam - Neck Exam Neck Exam: Normal Inspection - Respiratory Exam Respiratory Exam: NORMAL BREATHING PATTERN - Cardiovascular Exam Cardiovascular Exam: absent: JVD - GI/Abdominal Exam GI & Abdominal Exam: absent: Distended - Rectal Exam Rectal Exam: Deferred - Exam Additional comments: Deferred. - Extremities Exam Extremities Exam: Normal Inspection - Back Exam Back Exam: NORMAL INSPECTION - Neurological Exam Neurological Exam: Alert, Awake, Oriented x3 - Psychiatric Exam Psychiatric exam: Normal Affect, Normal Mood - Additional Findings Additional findings: Left abdominal wall dressing not visible. Assessment and Plan - Assessment and Plan (Free Text) Assessment: Abdominal wall pain. Abdominal wall cellulitis. HTN. NIDDM. Dilated cardiomyopathy. S/P IVC filter placement. Plan: Percocet 5/325 , I PO x 1. Continue present management.
[2018-01-01] MEDS: Piperacillin/Tazobact 3.375 gm 100 ML IVPB SCH ×4 (00:07→18:01)
[2018-01-01] MEDS ORDERED: Oxycodone/Acetaminophen 5/325 mg Tab PO STA (07:06)
[2018-01-01 07:10] LABS: BASO # 0.03 K/mm3 (0.0-2.0); BASO % 0.3 % (0.0-3.0); EOS # 0.4 (0.0-0.7); EOS % 4.8 % (1.5-5.0); GRAN # 6.08 (1.4-6.5); GRAN % 68.9 % (50.0-68.0); LYMPH # 1.4 (1.2-3.4); LYMPH % 16.2 % (22.0-35.0); MEAN CELL VOLUME 85.1 fl (80.0-105.0); MEAN CORPUSCULAR HEMOGLOBIN 26.9 pg (25.0-35.0); MEAN CORPUSCULAR HGB CONC 31.6 g/dl (31.0-37.0); MEAN PLATELET VOLUME 8.8 fl (7.0-11.0); MONO # 0.9 (0.1-0.6); MONO % 9.8 % (1.0-6.0); RBC 3.35 10^6/uL (3.5-6.1); WHITE BLOOD COUNT 8.8 10^3/ul (4.5-11.0)
--- NOTE | 2018-01-01 07:11 | CP.PCM.PN ---
Subjective - Date & Time of Evaluation Date of Evaluation: 01/01/18 Time of Evaluation: 07:07 - Subjective Subjective: PGY-2, House Doc, for Dr. Hassan & surgery team CC: 06/26 abdominal pain S: Patient was seen at bedside. Pt has pain in left side of abdomen, 06/26 , no radiation, no other complaints. (+) BM last night This 57 year old white woman was admitted with abdominal wall cellulitis/ infection for debridement. Has PMH of HTN, NIDDM, dilated cardiomyopathy, anxiety, iron deficiency anemia, DVT,PE, S/P IVC filter placement. O: VS stable GEN: NAD Card: regular s1 s2 Pulm: CTA b/l no w/r/r Abd:(+) bowel sound. Tender L side of abdomen. dressing intact Ext: 3+ pitting edema b/l. neg geoff signs A/P: Abdominal wall pain due to Abdominal wall cellulitis. Plan I&D today Hx HTN, NIDDM, Dilated cardiomyopathy. S/P IVC filter placement. - Discussed with surgery team - Percocet 5/325 , I PO x 1. - Continue present management. Objective - Vital Signs/Intake and Output Vital Signs (last 24 hours): Temp Pulse Resp BP Pulse Ox 98.6 F 85 20 118/70 95 12/31/17 14:00 12/31/17 14:00 12/31/17 14:00 12/31/17 17:51 12/31/17 14:00 Intake and Output: 01/01/18 01/01/18 06:59 18:59 Intake Total 240 Balance 240 - Medications Medications: Current Medications Acetaminophen (Tylenol 325mg Tab) 650 mg PO Q4H PRN PRN Reason: Fever >100.4 F Last Admin: 12/30/17 22:59 Dose: 650 mg Alprazolam (Xanax) 0.25 mg PO PRN PRN; Protocol PRN Reason: Anxiety Stop: 01/04/18 13:20 Last Admin: 01/01/18 00:07 Dose: 0.25 mg Carvedilol (Coreg) 3.125 mg PO 0800,1800 [facility] Last Admin: 12/31/17 17:51 Dose: 3.125 mg Collagenase (Santyl) 0 gm TOP DAILY [facility] Last Admin: 12/31/17 09:54 Dose: Not Given Furosemide (Lasix) 40 mg PO DAILY [facility] Last Admin: 12/31/17 10:22 Dose: Not Given Home Med (Home Med) 1 unit I[facility] QAM [facility] Last Admin: 12/31/17 09:54 Dose: Not Given Home Med (Home Med) 1 unit IH QAM [facility] Last Admin: 12/31/17 09:54 Dose: Not Given Hydrochlorothiazide (Microzide) 12.5 mg PO DAILY [facility] Last Admin: 12/31/17 10:22 Dose: Not Given Piperacillin Sod/Tazobactam Sod (Zosyn 3.375 In Ns 100ml) 100 mls @ 200 mls/hr IVPB Q6 [facility] PRN Reason: Protocol Stop: 01/04/18 18:01 Last Admin: 01/01/18 05:47 Dose: 200 mls/hr Vancomycin HCl (Vancomycin 1gm) 1 gm in 250 mls @ 167 mls/hr IVPB Q12 [facility] PRN Reason: Protocol Last Admin: 12/31/17 21:33 Dose: 167 mls/hr Insulin Human Regular (Humulin R) 0 units SC ACHS [facility] PRN Reason: Protocol Last Admin: 12/31/17 22:12 Dose: Not Given Lisinopril (Zestril) 10 mg PO DAILY [facility] Last Admin: 12/31/17 10:15 Dose: 10 mg Oxycodone/Acetaminophen (Percocet 5/325 Mg Tab) 1 tab PO STAT STA Stop: 01/01/18 07:07 Tramadol HCl (Ultram) 50 mg PO DAILY [facility] Last Admin: 12/31/17 10:22 Dose: Not Given - Labs Labs: 12/31/17 07:00 12/31/17 07:00 PT 23.7 SECONDS (9.4-12.5) H 12/31/17 07:00 INR 2.03 (0.93-1.08) H 12/31/17 07:00 APTT 31.7 Seconds (25.1-36.5) 12/31/17 07:00
[2018-01-01 07:20] LABS: ALB/GLOB RATIO 0.8 (1.1-1.8); ALT/SGPT 22 U/L (7-56); AST/SGOT 17 U/L (14-36); BLOOD UREA NITROGEN 21 mg/dL (7-21); CALCIUM 8.4 mg/dL (8.4-10.5); GFR AFRICAN-AMERICAN > 60; GFR NON-AFRICAN AMERICAN > 60
[2018-01-01 07:22] LABS: INR 1.49 (0.93-1.08); PROTHROMBIN TIME 17.3 SECONDS (9.4-12.5)
[2018-01-01] MEDS ORDERED: Oxycodone/Acetaminophen 5/325 mg Tab PO PRN ×2 (07:44→11:37)
[2018-01-01] MEDS: Insulin Regular 1 UNITS/0.01 ML ML SC SCH ×4 (08:30→21:55)
[2018-01-01] MEDS: UMECLIDINIUM BRM IH SCH (09:29)
[2018-01-01] MEDS: Vancomycin 1gm in NS 250ml 1 GM/250 ML BAG IVPB SCH ×2 (09:29→22:19)
[2018-01-01] MEDS: ARNUITY ELLIPTA IH SCH (09:29)
[2018-01-01] MEDS: VILANTEROL TR IH SCH (09:29)
--- NOTE | 2018-01-01 09:52 | PN ---
SUBJECTIVE: The patient was seen and examined at bedside on the general medical hinkle. No acute events overnight. She remains afebrile and hemodynamically stable. She is pending operative debridement of her anterior abdominal wall wound today. PHYSICAL EXAMINATION VITAL SIGNS: Temperature 98.6, pulse 80, blood pressure 120/72, respiratory rate 20, oxygen saturation 96% on room air. GENERAL: Morbidly obese woman, lying in bed, in no apparent distress. HEENT: PERRL. EOMI. No scleral icterus. No conjunctival pallor. NECK: Supple with full range of motion. No JVD. LUNGS: Clear to auscultation. CARDIOVASCULAR: Regular rate and rhythm. Normal S1 and S2. ABDOMEN: Obese. Normoactive bowel sounds. Abdominal wound with erythema and scant discharge. EXTREMITIES: Trace lower extremity edema bilaterally. NEUROLOGIC: Awake, alert, and oriented x 3. No focal motor deficits. LABORATORY DATA: WBC 8.8, hemoglobin 9, hematocrit 28, platelets 393. Chemistry reviewed and unremarkable. INR of 1.49. ASSESSMENT: The patient is a 57 year old woman with multiple medical comorbidities including morbid obesity who was recently discharged after an admission for management of stage II nonhealing pressure ulcer to the abdominal wall s/p OR debridement s/p placement of wound VAC who was found to have increasing erythema and discharge from her abdominal wound and was sent to the ED for surgical reevaluation and possible repeat debridement. PLAN: 1. Cellulitis of the abdominal wall with stage II pressure ulcer s/p OR debridement s/p wound VAC. Input from the surgical team noted and the patient is scheduled for OR debridement today. Input from Dr. Gambino of [place] noted and appreciated. Continue current antimicrobials. 2. Dilated cardiomyopathy with an EF of 20%. Continue Coreg 3.125 mg p.o. b.i.d., Lasix 40 mg p.o. daily, Lisinopril 10 mg p.o. daily and HCTZ 12.5 mg p.o. daily. Coumadin remains on hold in anticipation of OR and will be resumed when okay from surgical standpoint with goal INR of 2-3. 3. 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 Coumadin will be resumed when okay from surgical standpoint with goal INR of 2-3. She will require lifelong anticoagulation therapy in the setting of dilated cardiomyopathy with an EF of 20%. 4. Hypertension. Blood pressure controlled. Continue current medications. 5. Iron deficiency anemia. Labs demonstrate Hb at baseline. She declines Feosol due to constipation. 6. NIDDM, diet controlled, with most recent A1c of 5.9. Continue to monitor fingersticks before every meal and at bedtime. 7. Anxiety disorder. Continue Xanax 0.25 mg p.o. daily. 8. Morbid obesity. 9. Prophylaxis. GI prophylaxis is not indicated as the patient is eating. DVT prophylaxis is not indicated as the patient is ambulatory. CODE STATUS: Full code. Jorge Nguyen MD MTDD
[2018-01-01] MEDS ORDERED: Morphine 4 mg/ml ISec IVP PRN (10:13)
[2018-01-01] MEDS ORDERED: Lactated Ringer's 1,000 ML IV SCH (10:15)
[2018-01-01] MEDS ORDERED: Propofol 10 mg/ml Inj (20 ML) ONE (10:36)
[2018-01-01] MEDS ORDERED: Midazolam 2 MG/2 ML VIAL ONE (10:37)
[2018-01-01] MEDS: Collagenase 250 Units/gm Ointment(30 gm) TOP SCH (10:57)
[2018-01-01] MEDS ORDERED: ePHEDrine 50 mg/ml Inj ONE (11:17)
[2018-01-01] MEDS ORDERED: HYDROmorphone 0.5 mg/0.5 ml ISec IVP PRN (11:36)
--- NOTE | 2018-01-01 11:45 | PCM.SURG1 ---
Surgeon's Initial Post Op Note - Surgeon's Notes Surgeon: Dr. Scott Hassan Manufacturing Cost Estimator: Dr. Rivera PGY2, Alexys OMS3 Type of Anesthesia: General Endo Anesthesia Administered By: Dr. aSndhu Pre-Operative Diagnosis: Chronic panniculitis Operative Findings: Chronic paniculitis Post-Operative Diagnosis: Chronic panniculitis Operation Performed: Debridement of L sided abdominal wound. Specimen/Specimens Removed: Eschar from L side abdominal wound. Estimated Blood Loss: EBL {In ML}: 300 Blood Products Given: N/A Drains Used: No Drains Post-Op Condition: Good Date of Surgery/Procedure: 01/01/18 Time of Surgery/Procedure: 11:45
[2018-01-01] MEDS ORDERED: HYDROmorphone 0.5 mg/0.5 ml ISec IVP STA (12:00)
[2018-01-01] MEDS ORDERED: HYDROmorphone 0.5 mg/0.5 ml ISec IVP ONE (12:07)
[2018-01-01] MEDS: Oxycodone/Acetaminophen 5/325 mg Tab PO PRN (17:58)
[2018-01-02] MEDS: Piperacillin/Tazobact 3.375 gm 100 ML IVPB SCH ×4 (00:07→17:22)
[2018-01-02] MEDS: Oxycodone/Acetaminophen 5/325 mg Tab PO PRN ×3 (03:15→19:52)
--- NOTE | 2018-01-02 04:33 | PN ---
DATE: 01/01/2018 LOCATION: The patient was seen earlier this morning in room 565, bed 2. SUBJECTIVE: No fevers, no chills. PHYSICAL EXAMINATION: VITAL SIGNS: Temperature is , blood pressure is 116/70, respiratory rate of 18 and heart rate of 71. HEENT: Unremarkable. NECK: Supple. LUNGS: Have decreased breath sounds. HEART: Normal S1, S2. ABDOMEN: Soft, nontender. LABORATORY EXAMINATION: Reveals a white count of 8.8, hemoglobin of 9, platelets of 393. BUN of 21, creatinine of 0.7 and procalcitonin is 0.05. Urinalysis is noted. Microbiology reveals abdominal cultures are E. coli and Corynebacterium. Patient is scheduled for OR today. ASSESSMENT AND PLAN: This is a 57-year-old female seen early this morning before surgery with abdominal wound infection and history of acute pulmonary emboli, on anticoagulation; hypertension, diabetes, morbid obesity and on vancomycin and Zosyn. We will check on the OR cultures and review of the orders reveals the patient's Zosyn is active and so as the vancomycin. We will follow closely with you. Brock Gambino MD
[2018-01-02] MEDS: ARNUITY ELLIPTA IH SCH ×2 (07:01→09:08)
[2018-01-02] MEDS: VILANTEROL TR IH SCH ×2 (07:02→09:08)
[2018-01-02] MEDS: UMECLIDINIUM BRM IH SCH ×2 (07:02→09:08)
[2018-01-02 07:09] LABS: BASO # 0.02 K/mm3 (0.0-2.0); BASO % 0.3 % (0.0-3.0); EOS # 0.4 (0.0-0.7); EOS % 4.5 % (1.5-5.0); GRAN # 5.44 (1.4-6.5); GRAN % 68.1 % (50.0-68.0); HEMOGLOBIN 8.2 g/dL (12.0-16.0); LYMPH # 1.3 (1.2-3.4); LYMPH % 16.5 % (22.0-35.0); MEAN CELL VOLUME 85.1 fl (80.0-105.0); MEAN CORPUSCULAR HEMOGLOBIN 26.5 pg (25.0-35.0); MEAN CORPUSCULAR HGB CONC 31.2 g/dl (31.0-37.0); MEAN PLATELET VOLUME 8.7 fl (7.0-11.0); MONO # 0.9 (0.1-0.6); MONO % 10.6 % (1.0-6.0); RBC 3.09 10^6/uL (3.5-6.1); RED CELL DISTRIBUTION WIDTH 17.1 % (11.5-14.5)
[2018-01-02 07:34] LABS: ALB/GLOB RATIO 0.8 (1.1-1.8); ALBUMIN 2.9 g/dL (3.0-4.8); ALT/SGPT 23 U/L (7-56); AST/SGOT 28 U/L (14-36); BLOOD UREA NITROGEN 21 mg/dL (7-21); CALCIUM 8.3 mg/dL (8.4-10.5); GFR AFRICAN-AMERICAN > 60; GFR NON-AFRICAN AMERICAN > 60
[2018-01-02] MEDS: Insulin Regular 1 UNITS/0.01 ML ML SC SCH ×4 (08:14→22:23)
[2018-01-02] MEDS: Collagenase 250 Units/gm Ointment(30 gm) TOP SCH (09:09)
[2018-01-02] MEDS: Vancomycin 1gm in NS 250ml 1 GM/250 ML BAG IVPB SCH ×2 (09:10→22:09)
[2018-01-02] MEDS ORDERED: HYDROmorphone 1 mg/ml ISec IVP PRN (09:25)
--- NOTE | 2018-01-02 11:22 | PN ---
SUBJECTIVE: The patient was seen and examined at bedside on the general medical hinkle. No acute events overnight. She remains afebrile and hemodynamically stable. This patient is s/p OR debridement of her anterior abdominal wall wound and is doing well postoperatively. This morning she denies fevers, chills, rigors, nausea, vomiting or diarrhea and overall states she feels okay. PHYSICAL EXAMINATION VITAL SIGNS: Temperature 98, pulse 86, blood pressure 137/86, respiratory rate 20, oxygen saturation 96% on room air. GENERAL: Morbidly obese woman, lying in bed, in no apparent distress. HEENT: PERRL. EOMI. No scleral icterus. Mild conjunctival pallor is noted. NECK: Supple with full range of motion. No JVD. LUNGS: Clear to auscultation. CARDIOVASCULAR: Regular rate and rhythm. Normal S1 and S2. ABDOMEN: Obese. Normoactive bowel sounds. Abdominal wound with surgical dressing in place. EXTREMITIES: No edema. NEUROLOGIC: Awake, alert, and oriented x3. No focal motor deficits. LABORATORY DATA: WBC 8 with 68% neutrophils, hemoglobin 8.2, hematocrit 26, platelets 386. Chemistry reviewed and unremarkable. Blood cultures with no growth to date. Abdominal wound culture with E. coli and Corynebacterium species. ASSESSMENT: The patient is a 57 year old woman with multiple medical comorbidities including morbid obesity who was recently discharged after an admission for management of stage II nonhealing pressure ulcer to the abdominal wall s/p OR debridement s/p placement of wound VAC who was found to have increasing erythema and discharge from her abdominal wall wound who was sent to the ED for surgical reevaluation and who is now s/p repeat OR debridement. PLAN: 1. Cellulitis of the abdominal wall with stage II pressure ulcer s/p repeat OR debridement. Input from Dr. Hassan greatly appreciated. continue with care as per the surgical team. Input from Dr. Gambino noted and appreciated. Continue with current antimicrobials. 2. Dilated cardiomyopathy with an EF of 20%. Continue Coreg 3.125 mg p.o. b.i.d., Lasix 40 mg p.o. daily, Lisinopril 10 mg p.o. daily and HCTZ 12.5 mg p.o. daily. We will restart Coumadin when okay from surgical standpoint with goal INR of 2-3. 3. 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 We will resume Coumadin when okay from surgical standpoint with goal INR of 2-3. She will require lifelong anticoagulation therapy in the setting of dilated cardiomyopathy with an EF of 20%. 4. Hypertension. Blood pressure controlled. Continue current medications. 5. Iron deficiency anemia. Labs demonstrate an acute drop in hemoglobin likely secondary to operative blood losses. Continue to monitor CBC daily. The patient declines Feosol due to history of constipation. 6. NIDDM, diet controlled, with most recent A1c of 5.9. Continue to monitor fingersticks before every meal and at bedtime. 7. Anxiety disorder. Continue Xanax 0.25 mg p.o. daily. 8. Morbid obesity. 9. Prophylaxis. GI prophylaxis is not indicated as the patient is eating. DVT prophylaxis is not indicated as the patient is ambulatory. CODE STATUS: Full code. Jorge Nguyen MD MTDD
--- NOTE | 2018-01-02 11:45 | CP.PCM.PN ---
Subjective - Date & Time of Evaluation Date of Evaluation: 01/02/18 Time of Evaluation: 11:41 - Subjective Subjective: Surgery: Dr. Hassan Pt seen and examined. Resting comfortably in bed. No complaints. Pain controlled. Objective - Vital Signs/Intake and Output Vital Signs (last 24 hours): Temp Pulse Resp BP Pulse Ox 98.5 F 84 20 130/66 98 01/02/18 06:00 01/02/18 09:10 01/02/18 06:00 01/02/18 09:11 01/02/18 06:00 Intake and Output: 01/02/18 01/02/18 06:59 18:59 Intake Total 960 Balance 960 - Medications Medications: Current Medications Acetaminophen (Tylenol 325mg Tab) 650 mg PO Q4H PRN PRN Reason: Fever >100.4 F Last Admin: 12/30/17 22:59 Dose: 650 mg Alprazolam (Xanax) 0.25 mg PO PRN PRN; Protocol PRN Reason: Anxiety Stop: 01/04/18 13:20 Last Admin: 01/01/18 00:07 Dose: 0.25 mg Carvedilol (Coreg) 3.125 mg PO 0800,1800 [facility] Last Admin: 01/02/18 08:15 Dose: 3.125 mg Collagenase (Santyl) 0 gm TOP DAILY [facility] Last Admin: 01/02/18 09:09 Dose: Not Given Furosemide (Lasix) 40 mg PO DAILY [facility] Last Admin: 01/02/18 09:11 Dose: 40 mg Home Med (Home Med) 1 unit QAM [facility] Last Admin: 01/02/18 09:08 Dose: Not Given Home Med (Home Med) 1 unit QAM [facility] Last Admin: 01/02/18 09:08 Dose: Not Given Hydrochlorothiazide (Microzide) 12.5 mg PO DAILY [facility] Last Admin: 01/02/18 09:10 Dose: 12.5 mg Hydromorphone HCl (Dilaudid) 1 mg IVP Q4H PRN PRN Reason: Pain, severe (8-10) Piperacillin Sod/Tazobactam Sod (Zosyn 3.375 In Ns 100ml) 100 mls @ 200 mls/hr IVPB Q6 [facility] PRN Reason: Protocol Stop: 01/04/18 18:01 Last Admin: 01/02/18 06:23 Dose: 200 mls/hr Vancomycin HCl (Vancomycin 1gm) 1 gm in 250 mls @ 167 mls/hr IVPB Q12 [facility] PRN Reason: Protocol Last Admin: 01/02/18 09:10 Dose: 167 mls/hr Insulin Human Regular (Humulin R) 0 units SC ACHS [facility] PRN Reason: Protocol Last Admin: 01/02/18 08:14 Dose: 1 units Lisinopril (Zestril) 10 mg PO DAILY [facility] Last Admin: 01/02/18 09:10 Dose: 10 mg Morphine Sulfate (Morphine) 2 mg IVP Q15M PRN PRN Reason: Pain, moderate (4-7) Oxycodone/Acetaminophen (Percocet 5/325 Mg Tab) 2 tab PO Q4H PRN PRN Reason: Pain, moderate (4-7) Stop: 01/04/18 11:38 Oxycodone/Acetaminophen (Percocet 5/325 Mg Tab) 1 tab PO Q6H PRN PRN Reason: Pain, Mild (1-3) Stop: 01/04/18 07:45 Last Admin: 01/02/18 09:15 Dose: 1 tab Tramadol HCl (Ultram) 50 mg PO DAILY [facility] Last Admin: 01/01/18 10:58 Dose: Not Given - Labs Labs: 01/02/18 06:45 01/02/18 06:45 PT 17.3 SECONDS (9.4-12.5) H 01/01/18 06:30 INR 1.49 (0.93-1.08) H 01/01/18 06:30 APTT 31.7 Seconds (25.1-36.5) 12/31/17 07:00 - Constitutional Appears: Non-toxic, No Acute Distress - Head Exam Head Exam: ATRAUMATIC, NORMOCEPHALIC - Eye Exam Eye Exam: EOMI - ENT Exam ENT Exam: Mucous Membranes Moist - Neck Exam Neck Exam: Full ROM - Respiratory Exam Respiratory Exam: NORMAL BREATHING PATTERN. absent: Accessory Muscle Use, Respiratory Distress - GI/Abdominal Exam Additional comments: Left lower pannus, s/p debridement ~[id number] defect, no necrotic tissue, no odor - Neurological Exam Neurological Exam: Alert, Awake, Oriented x3 Assessment and Plan - Assessment and Plan (Free Text) Assessment: 57F w. chronic abd wound, s/p debridement, POD#1 -dressing changed at bedside wSerene patel -will apply wound vac tomorrow -d/w attending Marylin PGY3
--- NOTE | 2018-01-02 23:16 | PN ---
DATE: 01/02/2018 SUBJECTIVE: The patient is in bed, in no acute distress. Nontoxic. PHYSICAL EXAMINATION: VITAL SIGNS: Temperature is 97, blood pressure is 120/70, respiratory rate of 20. HEENT: Unremarkable. NECK: Supple. LUNGS: Have decreased breath sounds. HEART: Normal S1, S2. ABDOMEN: Soft, nontender. LABORATORY EXAMINATION: Reveals a white count of 8000, hemoglobin of 8, platelets of 386. Coagulation is noted. Chemistry reveals a BUN of 21, creatinine of 0.8 and procalcitonin is unremarkable. Urinalysis is noted. Microbiology reveals E. coli and Corynebacterium. The blood cultures are negative. Review of orders reveals the patient to be on Zosyn and vancomycin. ASSESSMENT AND PLAN: This is a 57-year-old female with abdominal wound infection, status post history of acute pulmonary emboli, on anticoagulation, hypertension, diabetes, morbid obesity, on vancomycin and Zosyn with E. Coli and Corynebacterium from the cultures and skin cultures and pathology from soft tissue revels extensive necrosis and microcalcifications and fat necrosis. We will follow with you. Brock Gambino MD
[2018-01-03] MEDS: Piperacillin/Tazobact 3.375 gm 100 ML IVPB SCH ×5 (00:43→23:46)
[2018-01-03] MEDS: Oxycodone/Acetaminophen 5/325 mg Tab PO PRN ×4 (00:56→19:42)
[2018-01-03 07:51] LABS: BASO # 0.02 K/mm3 (0.0-2.0); BASO % 0.3 % (0.0-3.0); EOS # 0.4 (0.0-0.7); EOS % 6.1 % (1.5-5.0); GRAN # 4.34 (1.4-6.5); GRAN % 63.1 % (50.0-68.0); HEMOGLOBIN 8.3 g/dL (12.0-16.0); LYMPH # 1.5 (1.2-3.4); LYMPH % 21.2 % (22.0-35.0); MEAN CELL VOLUME 84.8 fl (80.0-105.0); MEAN CORPUSCULAR HEMOGLOBIN 26.8 pg (25.0-35.0); MEAN CORPUSCULAR HGB CONC 31.6 g/dl (31.0-37.0); MEAN PLATELET VOLUME 8.5 fl (7.0-11.0); MONO # 0.6 (0.1-0.6); MONO % 9.3 % (1.0-6.0); RBC 3.1 10^6/uL (3.5-6.1); RED CELL DISTRIBUTION WIDTH 17.1 % (11.5-14.5); WHITE BLOOD COUNT 6.9 10^3/ul (4.5-11.0)
[2018-01-03] MEDS: Insulin Regular 1 UNITS/0.01 ML ML SC SCH ×3 (08:11→16:59)
[2018-01-03 08:13] LABS: ALB/GLOB RATIO 0.8 (1.1-1.8); ALBUMIN 2.8 g/dL (3.0-4.8); ALT/SGPT 20 U/L (7-56); AST/SGOT 27 U/L (14-36); BLOOD UREA NITROGEN 18 mg/dL (7-21); GFR AFRICAN-AMERICAN > 60; GFR NON-AFRICAN AMERICAN > 60
--- NOTE | 2018-01-03 08:59 | PN ---
SUBJECTIVE: The patient was seen and examined at bedside on the general medical hinkle. No acute events overnight. She remains afebrile, hemodynamically stable and is doing well s/p her second OR debridement of her anterior abdominal wall wound. This morning she feels okay and offers no complaints. PHYSICAL EXAMINATION VITAL SIGNS: Temperature 97.7, pulse 82, blood pressure 127/78, respiratory rate 18, oxygen saturation 95% on room air. GENERAL: Morbidly obese woman, lying in bed, in no apparent distress. HEENT: PERRL. EOMI. No scleral icterus. Mild conjunctival pallor is noted. NECK: No JVD. LUNGS: Clear to auscultation. CARDIOVASCULAR: Regular rate and rhythm. Normal S1 and S2. ABDOMEN: Obese. Normoactive bowel sounds. Surgical dressing to abdominal wound. EXTREMITIES: Trace lower extremity edema bilaterally. NEUROLOGIC: Awake, alert, and oriented x3. No focal motor deficits. LABORATORY DATA: WBC 6.9, hemoglobin 8, hematocrit 26, platelets 363. Chemistry reviewed and unremarkable. ASSESSMENT: The patient is a 57 year old woman with multiple medical comorbidities including morbid obesity who was recently discharged after an admission for management of stage II nonhealing pressure ulcer to the abdominal wall s/p OR debridement s/p wound VAC who was found to have increasing erythema and purulent discharge from her abdominal wall wound and who was sent to the ED for surgical reevaluation who is now s/p repeat OR debridement. PLAN: 1. Cellulitis of the abdominal wall with stage II pressure ulcer s/p OR debridement. Input from Dr. Hassan greatly appreciated. Continue with care as per the surgical team. Input from Dr. Gambino greatly appreciated. Continue with current antimicrobials. 2. Dilated cardiomyopathy with an EF of 20%. Continue Coreg 3.125 mg p.o. b.i.d., Lasix 40 mg p.o. daily, Lisinopril 10 mg p.o. daily and HCTZ 12.5 mg p.o. daily. We will resume Coumadin when okay from surgical standpoint with goal INR of 2-3. 3. 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 We will resume Coumadin when okay from surgical standpoint. She will require lifelong anticoagulation therapy in the setting of dilated cardiomyopathy with an EF of 20%. 4. Hypertension. Blood pressure controlled. Continue current medications. 5. Iron deficiency anemia. Labs demonstrate stable H/H. Continue to monitor CBC daily. She declines Feosol due to history of constipation. 6. NIDDM, diet controlled, with most recent A1c of 5.9. Continue to monitor fingersticks before every meal and at bedtime. 7. Anxiety disorder. Continue Xanax 0.25 mg p.o. daily. 8. Morbid obesity. 9. Prophylaxis. GI prophylaxis is not indicated as the patient is eating. DVT prophylaxis is not indicated as the patient is ambulatory. CODE STATUS: Full code. Jorge Nguyen MD MTDD
[2018-01-03] MEDS: Vancomycin 1gm in NS 250ml 1 GM/250 ML BAG IVPB SCH ×2 (09:29→21:41)
[2018-01-03] MEDS: UMECLIDINIUM BRM IH SCH (09:30)
[2018-01-03] MEDS: VILANTEROL TR IH SCH (09:30)
[2018-01-03] MEDS: Collagenase 250 Units/gm Ointment(30 gm) TOP SCH (09:31)
[2018-01-03] MEDS: ARNUITY ELLIPTA IH SCH (09:31)
[2018-01-03] MEDS ORDERED: Oxycodone/Acetaminophen 5/325 mg Tab PO STA (15:51)
--- NOTE | 2018-01-03 22:45 | CP.PCM.PCO ---
Physician Communication Note - Physician Communication Note Physician Communication Note: Wound vac will be changed Q4 days
--- NOTE | 2018-01-04 00:19 | PN ---
DATE: SUBJECTIVE: Patient is in bed, in no acute distress, nontoxic. PHYSICAL EXAMINATION: VITAL SIGNS: On exam, temperature is 98, blood pressure is 107/60, respiratory rate of 20, heart rate of 82. HEENT: Unremarkable. NECK: Supple. LUNGS: Have decreased breath sounds. HEART: Normal S1 and S2. ABDOMEN: Soft. LABORATORY DATA: Reveals a white count of 6.9, hemoglobin of 8, platelets of 363. Sed rate is 121. Coagulation is noted. Chemistries reveals a BUN of 18, creatinine of 0.8. Procalcitonin is less than 0.05. Urinalysis is noted. Microbiology is E. coli and Corynebacterium species from the wound culture. Review of orders reveals the patient to be on vancomycin and Zosyn. ASSESSMENT AND PLAN: This is a 57-year-old female with known abdominal wound infection status post history of acute pulmonary emboli and anticoagulation, hypertensive, diabetic, morbid obesity; on vancomycin and Zosyn for Escherichia coli and Corynebacterium from the skin cultures, and pathology revealed extensive necrosis and microcalcifications and fat necrosis. We will continue with present antibiotics. The patient was taken to the OR on 01/01/2018 for further debridement of the wound of the abdominal wall and with a diagnosis of panniculitis. She had a vancomycin trough level vancomycin in the a.m.. We will order a vancomycin trough level at 9:00 a.m., an hour before the 10:00 a.m. dose. Brock Gambino MD
[2018-01-04] MEDS: Oxycodone/Acetaminophen 5/325 mg Tab PO PRN ×4 (01:41→23:20)
[2018-01-04] MEDS: Piperacillin/Tazobact 3.375 gm 100 ML IVPB SCH ×5 (06:25→23:20)
[2018-01-04 07:16] LABS: ALB/GLOB RATIO 0.8 (1.1-1.8); ALBUMIN 2.8 g/dL (3.0-4.8); ALT/SGPT 22 U/L (7-56); AST/SGOT 30 U/L (14-36); BLOOD UREA NITROGEN 18 mg/dL (7-21); CALCIUM 8.3 mg/dL (8.4-10.5); GFR AFRICAN-AMERICAN > 60; GFR NON-AFRICAN AMERICAN > 60
[2018-01-04] MEDS: Insulin Regular 1 UNITS/0.01 ML ML SC SCH ×3 (07:47→16:36)
[2018-01-04 07:50] LABS: BASO # 0.02 K/mm3 (0.0-2.0); BASO % 0.3 % (0.0-3.0); EOS # 0.5 (0.0-0.7); EOS % 6.6 % (1.5-5.0); GRAN # 4.68 (1.4-6.5); GRAN % 64.5 % (50.0-68.0); HEMOGLOBIN 8.3 g/dL (12.0-16.0); LYMPH # 1.3 (1.2-3.4); LYMPH % 17.6 % (22.0-35.0); MEAN CELL VOLUME 85.9 fl (80.0-105.0); MEAN CORPUSCULAR HEMOGLOBIN 26.7 pg (25.0-35.0); MEAN CORPUSCULAR HGB CONC 31.1 g/dl (31.0-37.0); MEAN PLATELET VOLUME 8.8 fl (7.0-11.0); MONO # 0.8 (0.1-0.6); RBC 3.11 10^6/uL (3.5-6.1); RED CELL DISTRIBUTION WIDTH 17.1 % (11.5-14.5); WHITE BLOOD COUNT 7.3 10^3/ul (4.5-11.0)
--- NOTE | 2018-01-04 07:54 | OP ---
PROCEDURE DATE: 01/01/2018 PREOPERATIVE DIAGNOSIS: Necrosis of the abdominal wall secondary to a huge pannus. DESCRIPTION OF PROCEDURE: In the operating room, the patient was identified by name, name of the procedure, laterality, and my laura. The patient was placed supine and intrathecally intubated. The right side of the abdomen was cleaned very nicely with the Versajet; however, on the other side, using a knife, the eschar was removed. We encountered a massive blood vessel, venous, the size of my pinky, required suture ligation. This was done several times above and below. Considerable amount of blood was lost, probably 200 mL. In the end, this was debrided nicely using a Versajet, it was cleaned and because of the complexity of the venous bleeding, elected not to place a wound VAC. The patient was dressed and taken to the recovery room in good condition after the sponge and needle count was declared correct. Scott Hassan MD
--- NOTE | 2018-01-04 08:19 | CP.PCM.PN ---
Subjective - Date & Time of Evaluation Date of Evaluation: 01/04/18 Time of Evaluation: 08:15 - Subjective Subjective: Surgery Progress Note: Patient seen and assessed at bedside. Patient resting comfortably in bed and tolerating diet without complications. Patient denies fevers, chills, chest pain , SOB, abdominal pain, N/V/C/D, changes in urine output, or any new skin changes. Objective - Vital Signs/Intake and Output Vital Signs (last 24 hours): Temp Pulse Resp BP Pulse Ox 98.1 F 82 20 107/69 96 01/03/18 14:00 01/03/18 14:00 01/03/18 14:00 01/03/18 14:00 01/03/18 14:00 Intake and Output: 01/04/18 01/04/18 06:59 18:59 Intake Total 1680 Balance 1680 - Medications Medications: Current Medications Acetaminophen (Tylenol 325mg Tab) 650 mg PO Q4H PRN PRN Reason: Fever >100.4 F Last Admin: 12/30/17 22:59 Dose: 650 mg Alprazolam (Xanax) 0.25 mg PO PRN PRN; Protocol PRN Reason: Anxiety Stop: 01/04/18 13:20 Last Admin: 01/01/18 00:07 Dose: 0.25 mg Carvedilol (Coreg) 3.125 mg PO 0800,1800 [facility] Last Admin: 01/04/18 07:47 Dose: 3.125 mg Collagenase (Santyl) 0 gm TOP DAILY [facility] Last Admin: 01/03/18 09:31 Dose: Not Given Furosemide (Lasix) 40 mg PO DAILY [facility] Last Admin: 01/03/18 09:29 Dose: 40 mg Home Med (Home Med) 1 unit QAM [facility] Last Admin: 01/03/18 09:30 Dose: 1 unit [facility] ([facility] [place] Last Admin: 01/03/18 09:31 Dose: 1 unit Hydrochlorothiazide (Microzide) 12.5 mg PO DAILY [facility] Last Admin: 01/03/18 09:29 Dose: 12.5 mg Hydromorphone HCl (Dilaudid) 1 mg IVP Q4H PRN PRN Reason: Pain, severe (8-10) Piperacillin Sod/Tazobactam Sod (Zosyn 3.375 In Ns 100ml) 100 mls @ 200 mls/hr IVPB Q6 [facility] PRN Reason: Protocol Stop: 01/04/18 18:01 Last Admin: 01/04/18 06:25 Dose: 200 mls/hr Vancomycin HCl (Vancomycin 1gm) 1 gm in 250 mls @ 167 mls/hr IVPB Q12 [facility] PRN Reason: Protocol Last Admin: 01/03/18 21:41 Dose: 167 mls/hr Insulin Human Regular (Humulin R) 0 units SC ACHS [facility] PRN Reason: Protocol Last Admin: 01/04/18 07:47 Dose: Not Given Lisinopril (Zestril) 10 mg PO DAILY [facility] Last Admin: 01/03/18 09:29 Dose: 10 mg Oxycodone/Acetaminophen (Percocet 5/325 Mg Tab) 2 tab PO Q4H PRN PRN Reason: Pain, moderate (4-7) Stop: 01/04/18 11:38 Tramadol HCl (Ultram) 50 mg PO DAILY [facility] Last Admin: 01/03/18 09:29 Dose: 50 mg - Labs Labs: 01/04/18 06:15 01/04/18 06:15 PT 17.3 SECONDS (9.4-12.5) H 01/01/18 06:30 INR 1.49 (0.93-1.08) H 01/01/18 06:30 APTT 31.7 Seconds (25.1-36.5) 12/31/17 07:00 - Constitutional Appears: Non-toxic, No Acute Distress - Head Exam Head Exam: ATRAUMATIC, NORMOCEPHALIC - Eye Exam Eye Exam: EOMI - ENT Exam ENT Exam: Mucous Membranes Moist - Neck Exam Neck Exam: Full ROM - Respiratory Exam Respiratory Exam: NORMAL BREATHING PATTERN. absent: Accessory Muscle Use, Respiratory Distress - GI/Abdominal Exam GI & Abdominal Exam: Soft, Normal Bowel Sounds. absent: Distended Additional comments: Left lower pannus s/p debridement approx. [id number] defect with wound vac in place - Neurological Exam Neurological Exam: Alert, Awake, Oriented x3 - Psychiatric Exam Psychiatric exam: Normal Affect, Normal Mood - Skin Skin Exam: Dry, Intact, Normal Color, Warm Assessment and Plan - Assessment and Plan (Free Text) Assessment: 57 year old female with a chronic abdominal wound s/p debridement, POD#3 Plan: -Continue wound vac with appropriate care -Continue wound care -D/W attending Rubia PGY1
[2018-01-04] MEDS: UMECLIDINIUM BRM IH SCH (10:12)
[2018-01-04] MEDS: ARNUITY ELLIPTA IH SCH (10:12)
[2018-01-04] MEDS: VILANTEROL TR IH SCH (10:12)
[2018-01-04] MEDS: Vancomycin 1gm in NS 250ml 1 GM/250 ML BAG IVPB SCH ×2 (10:13→21:52)
[2018-01-04] MEDS: Collagenase 250 Units/gm Ointment(30 gm) TOP SCH (10:16)
--- NOTE | 2018-01-04 15:31 | PN ---
DATE: 01/04/2018 SUBJECTIVE: The patient is sitting up in bed, room 565. Her only complaint at this time is some pain in the area, which is debrided now. PHYSICAL EXAMINATION: VITAL SIGNS: Temperature 98.1, pulse rate 82, BP 107/69, respiratory rate of 20 with an O2 sat of 96% on room air. HEENT: PERRLA. EOMI. NECK: Supple. No bruits or jugular venous distention. LUNGS: Clear bilaterally. HEART: Regular rate and rhythm. ABDOMEN: Benign. NEUROLOGICAL: The patient is intact. The patient's abdominal wall is currently bandaged. LABORATORY DATA: Hemoglobin of 8.3, hematocrit of 26.7. INR 1.49. SMA-23 is essentially within normal limits with exception of sugar 142. We will continue current regimen. The patient will again be debrided on Sunday. CURRENT DIAGNOSES: 1. Abdominal wall cellulitis. 2. Open wound, abdominal wall anterior. 3. Congestive heart failure. 4. Diabetes. Obi Nguyen MD
--- NOTE | 2018-01-04 15:48 | CP.PCM.PCO ---
Physician Communication Note - Physician Communication Note Physician Communication Note: VNS orders: vac change Q4D x 1 month - f/u in wound clinic in 2 weeks
--- NOTE | 2018-01-04 21:18 | CP.PCM.PN ---
Subjective - Date & Time of Evaluation Date of Evaluation: 01/04/18 Time of Evaluation: 12:25 - Subjective Subjective: Resting comfortably in bed, no fevers, less pain in the abdominal wound. Objective - Vital Signs/Intake and Output Vital Signs (last 24 hours): Temp Pulse Resp BP Pulse Ox 98.2 F 81 18 119/73 97 01/04/18 06:00 01/04/18 06:00 01/04/18 06:00 01/04/18 06:00 01/04/18 06:00 Intake and Output: 01/04/18 01/04/18 06:59 18:59 Intake Total 1680 Balance 1680 - Medications Medications: Current Medications Acetaminophen (Tylenol 325mg Tab) 650 mg PO Q4H PRN PRN Reason: Fever >100.4 F Last Admin: 12/30/17 22:59 Dose: 650 mg Alprazolam (Xanax) 0.25 mg PO PRN PRN; Protocol PRN Reason: Anxiety Stop: 01/04/18 13:20 Last Admin: 01/01/18 00:07 Dose: 0.25 mg Carvedilol (Coreg) 3.125 mg PO 0800,1800 [facility] Last Admin: 01/04/18 07:47 Dose: 3.125 mg Collagenase (Santyl) 0 gm TOP DAILY [facility] Last Admin: 01/03/18 09:31 Dose: Not Given Furosemide (Lasix) 40 mg PO DAILY [facility] Last Admin: 01/03/18 09:29 Dose: 40 mg [facility] [place] [facility] Last Admin: 01/03/18 09:30 Dose: 1 unit [facility] Med [facility] [place] Last Admin: 01/03/18 09:31 Dose: 1 unit Hydrochlorothiazide (Microzide) 12.5 mg PO DAILY [facility] Last Admin: 01/03/18 09:29 Dose: 12.5 mg Hydromorphone HCl (Dilaudid) 1 mg IVP Q4H PRN PRN Reason: Pain, severe (8-10) Piperacillin Sod/Tazobactam Sod (Zosyn 3.375 In Ns 100ml) 100 mls @ 200 mls/hr IVPB Q6 [facility] PRN Reason: Protocol Stop: 01/04/18 18:01 Last Admin: 01/04/18 06:25 Dose: 200 mls/hr Vancomycin HCl (Vancomycin 1gm) 1 gm in 250 mls @ 167 mls/hr IVPB Q12 [facility] PRN Reason: Protocol Last Admin: 01/03/18 21:41 Dose: 167 mls/hr Insulin Human Regular (Humulin R) 0 units SC ACHS [facility] PRN Reason: Protocol Last Admin: 01/04/18 07:47 Dose: Not Given Lisinopril (Zestril) 10 mg PO DAILY [facility] Last Admin: 01/03/18 09:29 Dose: 10 mg Oxycodone/Acetaminophen (Percocet 5/325 Mg Tab) 2 tab PO Q4H PRN PRN Reason: Pain, moderate (4-7) Stop: 01/04/18 11:38 Tramadol HCl (Ultram) 50 mg PO DAILY [facility] Last Admin: 01/03/18 09:29 Dose: 50 mg - Labs Labs: 01/04/18 06:15 01/04/18 06:15 PT 17.3 SECONDS (9.4-12.5) H 01/01/18 06:30 INR 1.49 (0.93-1.08) H 01/01/18 06:30 APTT 31.7 Seconds (25.1-36.5) 12/31/17 07:00 - Constitutional Appears: Chronically Ill - Head Exam Head Exam: NORMAL INSPECTION - Respiratory Exam Respiratory Exam: Decreased Breath Sounds - Cardiovascular Exam Cardiovascular Exam: +S1, +S2 - GI/Abdominal Exam GI & Abdominal Exam: Soft. absent: Tenderness Additional comments: dressings in place Assessment and Plan - Assessment and Plan (Free Text) Plan: Assessment abdominal wound infection with panniculitis history of acute pulmonary embolism, on anticoagulation HTN DM morbid obesity with BMI 44 Plan continue Vancomycin and Zosyn - follow up further plans of Surgery will continue to monitor clinically
[2018-01-05] MEDS: Piperacillin/Tazobact 3.375 gm 100 ML IVPB SCH ×4 (05:59→23:58)
[2018-01-05] MEDS: Oxycodone/Acetaminophen 5/325 mg Tab PO PRN ×2 (06:47→13:49)
[2018-01-05] MEDS: Insulin Regular 1 UNITS/0.01 ML ML SC SCH ×4 (07:33→22:20)
[2018-01-05 07:52] LABS: BASO # 0.04 K/mm3 (0.0-2.0); BASO % 0.5 % (0.0-3.0); EOS # 0.4 (0.0-0.7); EOS % 5.4 % (1.5-5.0); GRAN # 4.92 (1.4-6.5); GRAN % 62.6 % (50.0-68.0); HEMOGLOBIN 8.1 g/dL (12.0-16.0); LYMPH # 1.6 (1.2-3.4); LYMPH % 20.5 % (22.0-35.0); MEAN CELL VOLUME 86.1 fl (80.0-105.0); MEAN CORPUSCULAR HEMOGLOBIN 26.7 pg (25.0-35.0); MEAN PLATELET VOLUME 8.8 fl (7.0-11.0); MONO # 0.9 (0.1-0.6); RBC 3.03 10^6/uL (3.5-6.1); RED CELL DISTRIBUTION WIDTH 17.6 % (11.5-14.5); WHITE BLOOD COUNT 7.9 10^3/ul (4.5-11.0)
[2018-01-05 08:06] LABS: ALB/GLOB RATIO 0.8 (1.1-1.8); ALBUMIN 2.8 g/dL (3.0-4.8); ALT/SGPT 22 U/L (7-56); AST/SGOT 24 U/L (14-36); BLOOD UREA NITROGEN 15 mg/dL (7-21); CALCIUM 8.5 mg/dL (8.4-10.5); GFR AFRICAN-AMERICAN > 60; GFR NON-AFRICAN AMERICAN > 60
[2018-01-05] MEDS: ARNUITY ELLIPTA IH SCH (09:31)
[2018-01-05] MEDS: UMECLIDINIUM BRM IH SCH (09:32)
[2018-01-05] MEDS: VILANTEROL TR IH SCH (09:32)
[2018-01-05] MEDS: Vancomycin 1gm in NS 250ml 1 GM/250 ML BAG IVPB SCH ×2 (09:35→23:06)
[2018-01-05] MEDS: Collagenase 250 Units/gm Ointment(30 gm) TOP SCH (09:38)
--- NOTE | 2018-01-05 11:23 | PN ---
SUBJECTIVE: The patient was seen and examined at bedside on the general internal medical hinkle. No acute events overnight. She remains afebrile and hemodynamically stable. This morning she states she feels okay and offers no complaints. She is pending PT evaluation for possible placement to the TCU. OBJECTIVE: VITAL SIGNS: Temperature 98.3, pulse 76, blood pressure 127/81, respiratory rate 20, oxygen saturation 98% on room air. GENERAL: Morbidly obese woman, lying in bed, in no apparent distress. HEENT: PERRL, EOMI. No scleral icterus. Mild conjunctival pallor is noted. NECK: No JVD. LUNGS: Clear to auscultation. CARDIOVASCULAR: Regular rate and rhythm. Normal S1 and S2. ABDOMEN: Obese, normoactive bowel sounds. Wound VAC in place to abdominal wound. EXTREMITIES: Trace lower extremity edema bilaterally. NEUROLOGICAL: Awake, alert and oriented x 3. No focal motor deficits. LABORATORY DATA: WBC 7.9, hemoglobin 8, hematocrit 26, platelets 412. Chemistry reviewed and unremarkable. ASSESSMENT: The patient is a 57 year old woman with multiple medical comorbidities including morbid obesity who was recently discharged after an admission for management of a stage II nonhealing pressure ulcer to the abdominal wall s/p OR debridement s/p wound VAC who was found to have increasing erythema and discharge from her abdominal wall wound who was sent to the ED for surgical reevaluation and who is now s/p repeat OR debridement. PLAN: 1. Cellulitis of the abdominal wall with stage II pressure ulcer s/p repeat OR debridement s/p wound VAC. Input from Dr. Hassan and the surgical team appreciated. Continue with care as per the surgical team. Input from Dr. Ross appreciated. Continue with current antimicrobials. 2. Dilated cardiomyopathy with an EF of 20%. Continue Coreg 3.125 mg p.o. b.i.d., Lasix 40 mg p.o. daily, Lisinopril 10 mg p.o. daily, and HCTZ 12.5 mg p.o. daily. We will resume Coumadin 4 mg p.o. daily with goal INR of 2-3. 3. 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 As above we will resume Coumadin 4 mg p.o. daily with goal INR of 2-3. She will require lifelong anticoagulation therapy in the setting of dilated cardiomyopathy with an EF of 20%. 4. Hypertension. Blood pressure controlled. Continue current medications. 5. Iron deficiency anemia. Labs demonstrate stable H/H. We will continue to monitor CBC daily. We will start Feosol 324 mg p.o. t.i.d. 6. NIDDM, diet controlled, with most recent A1c of 5.9. Continue to monitor fingersticks before every meal and at bedtime. 7. Anxiety disorder. Continue Xanax 0.25 mg p.o. daily. 8. Morbid obesity. 9. Prophylaxis. GI prophylaxis is not indicated as the patient is eating. The patient is on Coumadin thus DVT prophylaxis is not indicated. CODE STATUS: Full code. Jorge Nguyen MD MTDD
--- NOTE | 2018-01-05 13:58 | CP.PCM.PN ---
Subjective - Date & Time of Evaluation Date of Evaluation: 01/05/18 Time of Evaluation: 07:10 - Subjective Subjective: Surgery progress note. Dr. Hassan Pt seen and examined at bedside. Resting comfortably, pain well controlled. No new complaints. Wound vac in place with no leaks. Objective - Vital Signs/Intake and Output Vital Signs (last 24 hours): Temp Pulse Resp BP Pulse Ox 97.8 F 82 20 122/72 94 L 01/05/18 08:24 01/05/18 09:34 01/05/18 08:24 01/05/18 09:38 01/05/18 08:24 Intake and Output: 01/05/18 01/05/18 06:59 18:59 Intake Total 960 Balance 960 - Medications Medications: Current Medications Acetaminophen (Tylenol 325mg Tab) 650 mg PO Q4H PRN PRN Reason: Fever >100.4 F Last Admin: 12/30/17 22:59 Dose: 650 mg Carvedilol (Coreg) 3.125 mg PO 0800,1800 [facility] Last Admin: 01/05/18 09:32 Dose: 3.125 mg Collagenase (Santyl) 0 gm TOP DAILY [facility] Last Admin: 01/05/18 09:38 Dose: Not Given Ferrous Sulfate (Feosol) 324 mg PO TID [facility] Last Admin: 01/05/18 13:31 Dose: 324 mg Furosemide (Lasix) 40 mg PO DAILY [facility] Last Admin: 01/05/18 09:38 Dose: 40 mg Home Med (Home Med) 1 unit QAM [facility] Last Admin: 01/05/18 09:32 Dose: 1 unit [facility] Last Admin: 01/05/18 09:31 Dose: 1 unit Hydrochlorothiazide (Microzide) 12.5 mg PO DAILY [facility] Last Admin: 01/05/18 09:32 Dose: 12.5 mg Vancomycin HCl (Vancomycin 1gm) 1 gm in 250 mls @ 167 mls/hr IVPB Q12 [facility] PRN Reason: Protocol Last Admin: 01/05/18 09:35 Dose: 167 mls/hr Piperacillin Sod/Tazobactam Sod (Zosyn 3.375 In Ns 100ml) 100 mls @ 200 mls/hr IVPB Q6 [facility] PRN Reason: Protocol Stop: 01/12/18 00:01 Last Admin: 01/05/18 13:33 Dose: 200 mls/hr Insulin Human Regular (Humulin R) 0 units SC ACHS [facility] PRN Reason: Protocol Last Admin: 01/05/18 13:33 Dose: Not Given Lisinopril (Zestril) 10 mg PO DAILY [facility] Last Admin: 01/05/18 09:34 Dose: 10 mg Oxycodone/Acetaminophen (Percocet 5/325 Mg Tab) 1 tab PO Q6H PRN PRN Reason: Pain, severe (8-10) Stop: 01/08/18 13:43 Last Admin: 01/05/18 13:49 Dose: 1 tab Warfarin Sodium (Coumadin) 4 mg PO 1800 [facility] PRN Reason: Protocol - Labs Labs: 01/05/18 07:00 01/05/18 07:00 PT 17.3 SECONDS (9.4-12.5) H 01/01/18 06:30 INR 1.49 (0.93-1.08) H 01/01/18 06:30 APTT 31.7 Seconds (25.1-36.5) 12/31/17 07:00 - Constitutional Appears: Well, Non-toxic, No Acute Distress - Head Exam Head Exam: ATRAUMATIC, NORMAL INSPECTION, NORMOCEPHALIC - Eye Exam Eye Exam: EOMI, Normal appearance - ENT Exam ENT Exam: Mucous Membranes Moist - Respiratory Exam Respiratory Exam: NORMAL BREATHING PATTERN. absent: Accessory Muscle Use, Respiratory Distress - Cardiovascular Exam Cardiovascular Exam: absent: JVD - GI/Abdominal Exam GI & Abdominal Exam: Soft. absent: Distended, Firm, Guarding, Rigid, Tenderness Additional comments: abdominal wound with wound vac in place, to suction, no leaks. - Extremities Exam Additional comments: bilateral pitting pretibial edema - Neurological Exam Neurological Exam: Alert, Awake, Oriented x3 Assessment and Plan - Assessment and Plan (Free Text) Assessment: 57yo F with chronic abdominal wound s/p debridement POD4. Plan: - Continue wound vac - Cleared for discharge to rehab/TCU. - Wound vac change q4 days. Further recs as per Dr. Mo Martinez PGY1 surgery pager: [phone]
--- NOTE | 2018-01-05 18:10 | PN ---
DATE: Rivka Pierce is seen. The wound VAC is working well. White count is normal at 7.9. E. coli and Corynebacterium are seen on the wound. The patient wound VAC. Scott Hassan MD
--- NOTE | 2018-01-05 21:48 | PN ---
DATE: SUBJECTIVE: Patient is in bed, seen earlier this morning. PHYSICAL EXAMINATION: VITAL SIGNS: On exam, temperature is 98, blood pressure is 128/70, respiratory rate of 18. HEENT: Unremarkable. NECK: Supple. LUNGS: Have decreased breath sounds. HEART: Normal S1 and S2. ABDOMEN: Soft, nontender. LABORATORY DATA: Reveals a white count of 7.9, hemoglobin of 8, platelets of 412. Chemistries reveals a BUN of 16, creatinine of 0.8. C-reactive protein is greater than 15. ASSESSMENT AND PLAN: This is a 57-year-old female with abdominal wound infection and panniculitis, history of acute pulmonary emboli, on anticoagulation, diabetes mellitus and hypertension, morbid obesity, with a body mass index of 44; on vancomycin and Zosyn, and normal white count. We will order vancomycin trough level; the patient receives vancomycin at 10 a.m. and 10 p.m.; we will order vancomycin trough tomorrow morning at 9 a.m., an hour before the 10 a.m. dose. Brock Gambino MD
--- NOTE | 2018-01-06 02:32 | CP.PCM.PN ---
Subjective - Date & Time of Evaluation Date of Evaluation: 01/06/18 Time of Evaluation: 02:35 - Subjective Subjective: S:Patient was seen at bedside. States that she feels anxious and needs her xanax. States that she takes xanax sometimes. As per nurse, xanax order is dropped off. Patient has no other complaints now. Pertinent medical record was reviewed. O: Last Vital Signs 3 Temp 98.7 F 01/05/18 15:31 Pulse 88 01/05/18 17:36 Resp 18 01/05/18 15:31 BP 125/84 01/05/18 17:36 Pulse Ox 97 01/05/18 15:31 Awake, alert, not in distress. Sitting in a chair. LUNGS:Normal breathing pattern. A:Anxiety. P: Xanax 0.25 mg PO x 1. Objective - Vital Signs/Intake and Output Vital Signs (last 24 hours): Temp Pulse Resp BP Pulse Ox 98.7 F 88 18 125/84 97 01/05/18 15:31 01/05/18 17:36 01/05/18 15:31 01/05/18 17:36 01/05/18 15:31 Intake and Output: 01/05/18 01/06/18 18:59 06:59 Intake Total 600 900 Balance 600 900 - Medications Medications: Current Medications Acetaminophen (Tylenol 325mg Tab) 650 mg PO Q4H PRN PRN Reason: Fever >100.4 F Last Admin: 12/30/17 22:59 Dose: 650 mg Carvedilol (Coreg) 3.125 mg PO 0800,1800 [facility] Last Admin: 01/05/18 17:36 Dose: 3.125 mg Collagenase (Santyl) 0 gm TOP DAILY [facility] Last Admin: 01/05/18 09:38 Dose: Not Given Ferrous Sulfate (Feosol) 324 mg PO TID [facility] Last Admin: 01/05/18 17:36 Dose: 324 mg Furosemide (Lasix) 40 mg PO DAILY [facility] Last Admin: 01/05/18 09:38 Dose: 40 mg Home Med (Home Med) 1 unit IH QAM [facility] Last Admin: 01/05/18 09:32 Dose: 1 unit Home Med (Home Med) 1 unit IH QAM [facility] Last Admin: 01/05/18 09:31 Dose: 1 unit Hydrochlorothiazide (Microzide) 12.5 mg PO DAILY [facility] Last Admin: 01/05/18 09:32 Dose: 12.5 mg Piperacillin Sod/Tazobactam Sod (Zosyn 3.375 In Ns 100ml) 100 mls @ 200 mls/hr IVPB Q6 [facility] PRN Reason: Protocol Stop: 01/12/18 00:01 Last Admin: 01/05/18 23:58 Dose: 200 mls/hr Vancomycin HCl (Vancomycin 1gm) 1 gm in 250 mls @ 167 mls/hr IVPB Q12H [facility] PRN Reason: Protocol Last Admin: 01/05/18 23:06 Dose: 167 mls/hr Insulin Human Regular (Humulin R) 0 units SC ACHS [facility] PRN Reason: Protocol Last Admin: 01/05/18 17:37 Dose: 1 units Lisinopril (Zestril) 10 mg PO DAILY [facility] Last Admin: 01/05/18 09:34 Dose: 10 mg Oxycodone/Acetaminophen (Percocet 5/325 Mg Tab) 1 tab PO Q6H PRN PRN Reason: Pain, severe (8-10) Stop: 01/08/18 13:43 Last Admin: 01/05/18 13:49 Dose: 1 tab Warfarin Sodium (Coumadin) 4 mg PO 1800 [facility] PRN Reason: Protocol Last Admin: 01/05/18 17:36 Dose: 4 mg - Labs Labs: 01/05/18 07:00 01/05/18 07:00 PT 17.3 SECONDS (9.4-12.5) H 01/01/18 06:30 INR 1.49 (0.93-1.08) H 01/01/18 06:30 APTT 31.7 Seconds (25.1-36.5) 12/31/17 07:00
[2018-01-06] MEDS: Piperacillin/Tazobact 3.375 gm 100 ML IVPB SCH ×4 (06:38→23:13)
[2018-01-06] MEDS: Oxycodone/Acetaminophen 5/325 mg Tab PO PRN ×3 (07:26→23:16)
[2018-01-06 08:06] LABS: BASO # 0.03 K/mm3 (0.0-2.0); BASO % 0.4 % (0.0-3.0); EOS # 0.4 (0.0-0.7); EOS % 4.8 % (1.5-5.0); GRAN # 4.98 (1.4-6.5); GRAN % 66.7 % (50.0-68.0); HEMOGLOBIN 8.5 g/dL (12.0-16.0); LYMPH # 1.4 (1.2-3.4); LYMPH % 18.6 % (22.0-35.0); MEAN CORPUSCULAR HEMOGLOBIN 27.1 pg (25.0-35.0); MEAN CORPUSCULAR HGB CONC 31.5 g/dl (31.0-37.0); MEAN PLATELET VOLUME 8.8 fl (7.0-11.0); MONO # 0.7 (0.1-0.6); MONO % 9.5 % (1.0-6.0); RBC 3.14 10^6/uL (3.5-6.1); RED CELL DISTRIBUTION WIDTH 17.9 % (11.5-14.5); WHITE BLOOD COUNT 7.5 10^3/ul (4.5-11.0)
[2018-01-06] MEDS: Insulin Regular 1 UNITS/0.01 ML ML SC SCH ×3 (08:25→16:34)
[2018-01-06 08:29] LABS: INR 1.3 (0.93-1.08)
[2018-01-06 08:37] LABS: ALB/GLOB RATIO 0.8 (1.1-1.8); ALT/SGPT 18 U/L (7-56); AST/SGOT 31 U/L (14-36); BLOOD UREA NITROGEN 15 mg/dL (7-21); CALCIUM 8.8 mg/dL (8.4-10.5); GFR AFRICAN-AMERICAN > 60; GFR NON-AFRICAN AMERICAN > 60
[2018-01-06] MEDS: ARNUITY ELLIPTA IH SCH ×2 (09:06→09:07)
[2018-01-06] MEDS: UMECLIDINIUM BRM IH SCH (09:08)
[2018-01-06] MEDS: VILANTEROL TR IH SCH (09:08)
[2018-01-06] MEDS: Collagenase 250 Units/gm Ointment(30 gm) TOP SCH (11:34)
[2018-01-06] MEDS: Vancomycin 1gm in NS 250ml 1 GM/250 ML BAG IVPB SCH ×2 (11:34→23:13)
--- NOTE | 2018-01-06 13:55 | PN ---
SUBJECTIVE: The patient was seen and examined at bedside on the general medical hinkle. No acute events overnight. She remains afebrile and hemodynamically stable and is pending PT evaluation for possible TCU placement. OBJECTIVE: VITAL SIGNS: Temperature 98.4, pulse 79, blood pressure 139/92, respiratory rate 18, oxygen saturation 97% on room air. GENERAL: Morbidly obese woman, lying in bed, in no apparent distress. HEENT: PERRL, EOMI. No scleral icterus. Mild conjunctival pallor is noted. NECK: No JVD. LUNGS: Clear to auscultation. CARDIOVASCULAR: Regular rate and rhythm. Normal S1 and S2. ABDOMEN: Obese, normoactive bowel sounds. Wound VAC in place. EXTREMITIES: Trace lower extremity edema bilaterally. NEUROLOGIC: Awake, alert and oriented x3. No focal motor deficits. LABORATORY DATA: WBC 7.5, hemoglobin 8.5, hematocrit 27, platelets 448. Chemistry reviewed and unremarkable. INR 1.3. ASSESSMENT: The patient is a 57 year old woman with multiple medical comorbidities including morbid obesity who was recently discharged after an admission for management of stage II nonhealing pressure ulcer to the abdominal wall s/p OR debridement s/p wound VAC who was found to have increasing erythema and discharge from her abdominal wall wound who was sent to the ED for surgical reevaluation who is now s/p repeat OR debridement with placement of wound VAC. PLAN: 1. Cellulitis of the abdominal wall with stage II pressure ulcer s/p repeat OR debridement s/p wound VAC. Input from Dr. Hassan and the surgical team appreciated. Continue with care post-operative care as per surgical team. Input from Dr. Ross appreciated. Continue with current antimicrobials. 2. Dilated cardiomyopathy with an EF of 20%. Continue current medications. Continue Coumadin 4 mg p.o. daily with goal INR of 2-3. 3. 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 Continue Coumadin 4 mg p.o. daily with goal INR of 2-3. She will require lifelong anticoagulation in the setting of dilated cardiomyopathy with an EF of 20%. 4. Hypertension. Blood pressure controlled. Continue current medications. 5. Iron-deficiency anemia. Labs demonstrate stable H/H. Continue Feosol 324 mg p.o. t.i.d. and monitoring CBC daily. 6. NIDDM, diet controlled, with most recent A1c of 5.9. Continue to monitor fingersticks before every meal and each bedtime. 7. Anxiety disorder. Continue Xanax 0.25 mg p.o. daily. 8. Morbid obesity. 9. Prophylaxis. GI prophylaxis is not indicated as the patient is eating. The patient is on Coumadin thus DVT prophylaxis is not indicated. CODE STATUS: Full code. Jorge Nguyen MD MTDD
--- NOTE | 2018-01-06 16:29 | PN ---
DATE: Ms. Rivka Pierce is seen this morning. A wound VAC is placed. I believe she is going to [facility], but the wound VAC should be enough, maybe some Santyl. Dr. Rincon will cover while I am gone. Scott Hassan MD
--- NOTE | 2018-01-06 22:57 | PN ---
DATE: 01/06/2018 SUBJECTIVE: The patient is seen early this morning, in no acute distress. PHYSICAL EXAMINATION: VITAL SIGNS: Temperature is 98, blood pressure is 130/90, respiratory rate of 18, heart rate of 79. HEENT: Unremarkable. NECK: Supple. LUNGS: Have decreased breath sounds. HEART: Normal S1, S2. ABDOMEN: Soft, nontender. LABORATORY EXAMINATION: Reveals a white count of 7.5, hemoglobin of 8 and chemistries reveals the creatinine is 0.8. The patient's vancomycin trough today is 15.6. Review of orders reveals the patient to be on vancomycin and Zosyn. ASSESSMENT AND PLAN: A 57-year-old female with abdominal wound infection and panniculitis, history of acute pulmonary emboli, anticoagulation, diabetes and hypertension, morbid obesity with BMI of 44, on vanco and Zosyn. We will continue with monitoring closely. Brock Gambino MD
[2018-01-07] MEDS: Insulin Regular 1 UNITS/0.01 ML ML SC SCH ×5 (01:41→21:31)
[2018-01-07] MEDS: Piperacillin/Tazobact 3.375 gm 100 ML IVPB SCH ×4 (05:47→23:54)
[2018-01-07] MEDS: Oxycodone/Acetaminophen 5/325 mg Tab PO PRN ×3 (07:01→22:02)
[2018-01-07] MEDS: ARNUITY ELLIPTA IH SCH ×2 (07:04→09:43)
[2018-01-07 07:22] LABS: BASO # 0.02 K/mm3 (0.0-2.0); BASO % 0.3 % (0.0-3.0); EOS # 0.4 (0.0-0.7); EOS % 5.2 % (1.5-5.0); GRAN % 66.1 % (50.0-68.0); HEMOGLOBIN 8.7 g/dL (12.0-16.0); LYMPH # 1.4 (1.2-3.4); LYMPH % 18.3 % (22.0-35.0); MEAN CELL VOLUME 86.1 fl (80.0-105.0); MEAN CORPUSCULAR HEMOGLOBIN 27.4 pg (25.0-35.0); MEAN CORPUSCULAR HGB CONC 31.9 g/dl (31.0-37.0); MEAN PLATELET VOLUME 8.5 fl (7.0-11.0); MONO # 0.8 (0.1-0.6); MONO % 10.1 % (1.0-6.0); RBC 3.17 10^6/uL (3.5-6.1); RED CELL DISTRIBUTION WIDTH 17.8 % (11.5-14.5); WHITE BLOOD COUNT 7.6 10^3/ul (4.5-11.0)
[2018-01-07 07:35] LABS: INR 1.33 (0.93-1.08); PROTHROMBIN TIME 15.4 SECONDS (9.4-12.5)
[2018-01-07 07:56] LABS: ALB/GLOB RATIO 0.8 (1.1-1.8); ALBUMIN 2.9 g/dL (3.0-4.8); ALT/SGPT 22 U/L (7-56); AST/SGOT 19 U/L (14-36); BLOOD UREA NITROGEN 14 mg/dL (7-21); CALCIUM 8.6 mg/dL (8.4-10.5); GFR AFRICAN-AMERICAN > 60; GFR NON-AFRICAN AMERICAN > 60
--- NOTE | 2018-01-07 08:01 | CP.PCM.PN ---
Subjective - Date & Time of Evaluation Date of Evaluation: 01/07/18 Time of Evaluation: 07:59 - Subjective Subjective: Patient seen and examined at bedside. Per nursing no acute events occurred overnight. Patient denies any abdominal pain, fevers, chills, nausea, headaches , or any other complaints. Objective - Vital Signs/Intake and Output Vital Signs (last 24 hours): Temp Pulse Resp BP Pulse Ox 98.4 F 79 18 129/71 97 01/06/18 08:40 01/06/18 17:22 01/06/18 08:40 01/06/18 17:22 01/06/18 08:40 Intake and Output: 01/07/18 01/07/18 06:59 18:59 Intake Total 3460 Output Total 1002 Balance 2458 - Medications Medications: Current Medications Acetaminophen (Tylenol 325mg Tab) 650 mg PO Q4H PRN PRN Reason: Fever >100.4 F Last Admin: 12/30/17 22:59 Dose: 650 mg Carvedilol (Coreg) 3.125 mg PO 0800,1800 [facility] Last Admin: 01/06/18 17:22 Dose: 3.125 mg Collagenase (Santyl) 0 gm TOP DAILY [facility] Last Admin: 01/06/18 11:34 Dose: Not Given Ferrous Sulfate (Feosol) 324 mg PO TID [facility] Last Admin: 01/06/18 17:21 Dose: 324 mg Furosemide (Lasix) 40 mg PO DAILY [facility] Last Admin: 01/06/18 09:04 Dose: 40 mg Home Med (Home Med) 1 unit QAM [facility] Last Admin: 01/06/18 09:08 Dose: 1 unit Home Med (Home Med) 1 unit QAM [facility] Last Admin: 01/07/18 07:04 Dose: 1 unit Hydrochlorothiazide (Microzide) 12.5 mg PO DAILY [facility] Last Admin: 01/06/18 09:04 Dose: 12.5 mg Piperacillin Sod/Tazobactam Sod (Zosyn 3.375 In Ns 100ml) 100 mls @ 200 mls/hr IVPB Q6 FIONA PRN Reason: Protocol Stop: 01/12/18 00:01 Last Admin: 01/07/18 05:47 Dose: 200 mls/hr Vancomycin HCl (Vancomycin 1gm) 1 gm in 250 mls @ 167 mls/hr IVPB Q12H FIONA PRN Reason: Protocol Last Admin: 01/06/18 23:13 Dose: 167 mls/hr Insulin Human Regular (Humulin R) 0 units SC ACHS FIONA PRN Reason: Protocol Last Admin: 01/07/18 07:27 Dose: Not Given Lisinopril (Zestril) 10 mg PO DAILY [facility] Last Admin: 01/06/18 09:04 Dose: 10 mg Oxycodone/Acetaminophen (Percocet 5/325 Mg Tab) 1 tab PO Q6H PRN PRN Reason: Pain, severe (8-10) Stop: 01/08/18 13:43 Last Admin: 01/07/18 07:01 Dose: 1 tab Warfarin Sodium (Coumadin) 4 mg PO 1800 [facility] PRN Reason: Protocol Last Admin: 01/06/18 17:21 Dose: 4 mg - Labs Labs: 01/07/18 06:45 01/07/18 06:45 PT 15.4 SECONDS (9.4-12.5) H 01/07/18 06:45 INR 1.33 (0.93-1.08) H 01/07/18 06:45 APTT 31.7 Seconds (25.1-36.5) 12/31/17 07:00 - Head Exam Head Exam: ATRAUMATIC, NORMAL INSPECTION, NORMOCEPHALIC - Eye Exam Eye Exam: EOMI, Normal appearance - ENT Exam ENT Exam: Mucous Membranes Moist - Respiratory Exam Respiratory Exam: NORMAL BREATHING PATTERN - Cardiovascular Exam Cardiovascular Exam: REGULAR RHYTHM - GI/Abdominal Exam GI & Abdominal Exam: Soft, Normal Bowel Sounds - Extremities Exam Extremities Exam: Normal Inspection - Neurological Exam Neurological Exam: Alert, Awake - Psychiatric Exam Psychiatric exam: Normal Affect, Normal Mood - Skin Skin Exam: Dry, Intact Assessment and Plan - Assessment and Plan (Free Text) Assessment: 57yo F with chronic abdominal wound s/p debridement POD5. Plan: - Continue wound vac - Cleared for discharge to rehab/TCU. - Continue Wound vac change q4 days. Will discuss with Dr. Hassan
--- NOTE | 2018-01-07 09:34 | PN ---
SUBJECTIVE: The patient was seen and examined at bedside on the general medical hinkle. No acute events overnight. She is pending PT evaluation for possible transfer to the TCU for continued physical therapy and local wound care. OBJECTIVE: VITAL SIGNS: Temperature 98.2, pulse 79, blood pressure 129/71, respiratory rate 18, oxygen saturation 97% on room air. GENERAL: Morbidly obese woman, lying in bed, in no apparent distress. HEENT: PERRL, EOMI. No scleral icterus. Mild conjunctival pallor is noted. NECK: No JVD. LUNGS: Clear to auscultation. CARDIOVASCULAR: Regular rate and rhythm. Normal S1 and S2. ABDOMEN: Obese, normoactive bowel sounds. Wound VAC in place. EXTREMITIES: Trace lower extremity edema bilaterally. NEUROLOGIC: Awake, alert and oriented x3. No focal motor deficits. LABORATORY DATA: WBC 7.6, hemoglobin 8.7, hematocrit 27, platelets 409. Chemistry reviewed and unremarkable. INR 1.33. ASSESSMENT: The patient is a 57 year old woman with multiple medical comorbidities including morbid obesity who was recently discharged after an admission for management of stage II nonhealing pressure ulcer to the abdominal wall s/p OR debridement s/p wound VAC who was found to have increasing erythema and discharge from her abdominal wall wound and who was sent to the ED for surgical reevaluation who is now s/p repeat OR debridement with placement of wound VAC. PLAN: 1. Cellulitis of the abdominal wall with stage II pressure ulcer s/p OR debridement s/p wound VAC. Input from Dr. Hassan and the surgical team appreciated. Continue with postoperative care as per the surgical team. Input from Dr. Ross appreciated. Continue with current antimicrobials. 2. Dilated cardiomyopathy with an EF of 20%. Continue current medications. Continue Coumadin 4 mg p.o. daily with goal INR of 2-3. 3. 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 Continue Coumadin 4 mg p.o. daily with goal INR of 2-3. She will require a lifelong anticoagulation in the setting of dilated cardiomyopathy with an EF of 20%. 4. Hypertension. Blood pressure controlled. Continue current medications. 5. Iron-deficiency anemia. Labs demonstrate favorably trending hemoglobin. Continue Feosol 324 mg p.o. t.i.d. 6. NIDDM, diet controlled, with most recent A1c of 5.9. Continue to monitor fingersticks before every meal and at bedtime. 7. Anxiety disorder. Continue Xanax 0.25 mg p.o. daily. 8. Morbid obesity. 9. Prophylaxis. GI prophylaxis is not indicated as the patient is eating. The patient remains on Coumadin, thus DVT prophylaxis is not indicated. CODE STATUS: Full code. Jorge Nguyen MD MTDD
[2018-01-07] MEDS: UMECLIDINIUM BRM IH SCH (09:43)
[2018-01-07] MEDS: VILANTEROL TR IH SCH (09:43)
[2018-01-07] MEDS: Vancomycin 1gm in NS 250ml 1 GM/250 ML BAG IVPB SCH ×2 (10:26→22:03)
[2018-01-07] MEDS: Collagenase 250 Units/gm Ointment(30 gm) TOP SCH (10:39)
[2018-01-07] MEDS ORDERED: Oxycodone/Acetaminophen 5/325 mg Tab PO STA (14:44)
--- NOTE | 2018-01-07 17:44 | CP.PCM.PN ---
Subjective - Date & Time of Evaluation Date of Evaluation: 01/07/18 Time of Evaluation: 12:25 - Subjective Subjective: Improved pain on the abdominal wound, no fevers, no diarrhea. Objective - Vital Signs/Intake and Output Vital Signs (last 24 hours): Temp Pulse Resp BP Pulse Ox 98.2 F 82 18 128/75 94 L 01/07/18 14:00 01/07/18 17:24 01/07/18 14:00 01/07/18 17:24 01/07/18 14:00 Intake and Output: 01/07/18 01/07/18 06:59 18:59 Intake Total 3460 720 Output Total 1002 Balance 2458 720 - Medications Medications: Current Medications Acetaminophen (Tylenol 325mg Tab) 650 mg PO Q4H PRN PRN Reason: Fever >100.4 F Last Admin: 12/30/17 22:59 Dose: 650 mg Carvedilol (Coreg) 3.125 mg PO 0800,1800 [facility] Last Admin: 01/07/18 17:24 Dose: 3.125 mg Collagenase (Santyl) 0 gm TOP DAILY [facility] Last Admin: 01/07/18 10:39 Dose: Not Given Ferrous Sulfate (Feosol) 324 mg PO TID [facility] Last Admin: 01/07/18 17:24 Dose: 324 mg Furosemide (Lasix) 40 mg PO DAILY [facility] Last Admin: 01/07/18 09:42 Dose: 40 mg Home Med (Home Med) 1 unit QAM [facility] Last Admin: 01/07/18 09:43 Dose: Not Given [facility] Last Admin: 01/07/18 09:43 Dose: Not Given Hydrochlorothiazide (Microzide) 12.5 mg PO DAILY [facility] Last Admin: 01/07/18 09:42 Dose: 12.5 mg Piperacillin Sod/Tazobactam Sod (Zosyn 3.375 In Ns 100ml) 100 mls @ 200 mls/hr IVPB Q6 [facility]IONA PRN Reason: Protocol Stop: 01/12/18 00:01 Last Admin: 01/07/18 17:24 Dose: 200 mls/hr Vancomycin HCl (Vancomycin 1gm) 1 gm in 250 mls @ 167 mls/hr IVPB Q12H [facility] PRN Reason: Protocol Last Admin: 01/07/18 10:26 Dose: 167 mls/hr Insulin Human Regular (Humulin R) 0 units SC ACHS [facility] PRN Reason: Protocol Last Admin: 01/07/18 17:23 Dose: 1 units Lisinopril (Zestril) 10 mg PO DAILY [facility] Last Admin: 01/07/18 09:42 Dose: 10 mg Oxycodone/Acetaminophen (Percocet 5/325 Mg Tab) 1 tab PO Q6H PRN PRN Reason: Pain, severe (8-10) Stop: 01/08/18 13:43 Last Admin: 01/07/18 13:46 Dose: 1 tab Warfarin Sodium (Coumadin) 4 mg PO 1800 [facility] PRN Reason: Protocol Last Admin: 01/07/18 17:24 Dose: 4 mg - Labs Labs: 01/07/18 06:45 01/07/18 06:45 PT 15.4 SECONDS (9.4-12.5) H 01/07/18 06:45 INR 1.33 (0.93-1.08) H 01/07/18 06:45 APTT 31.7 Seconds (25.1-36.5) 12/31/17 07:00 - Constitutional Appears: Non-toxic, Chronically Ill - Head Exam Head Exam: NORMAL INSPECTION - ENT Exam ENT Exam: Mucous Membranes Moist - Neck Exam Neck Exam: absent: Meningismus - Respiratory Exam Respiratory Exam: Decreased Breath Sounds - Cardiovascular Exam Cardiovascular Exam: +S1, +S2 - GI/Abdominal Exam GI & Abdominal Exam: Soft. absent: Tenderness Additional comments: wound vacuum in place Assessment and Plan - Assessment and Plan (Free Text) Plan: Assessment abdominal wound infection with panniculitis history of acute pulmonary embolism, on anticoagulation HTN DM morbid obesity with BMI 44 Plan continue Vancomycin and Zosyn - follow up further plans of Surgery - for replacement of wound vacuum tomorrow will continue to monitor clinically
[2018-01-08] MEDS: Piperacillin/Tazobact 3.375 gm 100 ML IVPB SCH ×2 (05:15→12:18)
[2018-01-08] MEDS: Oxycodone/Acetaminophen 5/325 mg Tab PO PRN ×2 (05:26→13:17)
[2018-01-08 07:05] LABS: BASO # 0.02 K/mm3 (0.0-2.0); BASO % 0.3 % (0.0-3.0); EOS # 0.3 (0.0-0.7); EOS % 4.7 % (1.5-5.0); GRAN # 4.89 (1.4-6.5); GRAN % 67.9 % (50.0-68.0); HEMOGLOBIN 8.4 g/dL (12.0-16.0); LYMPH # 1.2 (1.2-3.4); LYMPH % 17.2 % (22.0-35.0); MEAN CELL VOLUME 86.7 fl (80.0-105.0); MEAN CORPUSCULAR HEMOGLOBIN 26.7 pg (25.0-35.0); MEAN CORPUSCULAR HGB CONC 30.8 g/dl (31.0-37.0); MEAN PLATELET VOLUME 8.6 fl (7.0-11.0); MONO # 0.7 (0.1-0.6); MONO % 9.9 % (1.0-6.0); RBC 3.15 10^6/uL (3.5-6.1); RED CELL DISTRIBUTION WIDTH 18.3 % (11.5-14.5); WHITE BLOOD COUNT 7.2 10^3/ul (4.5-11.0)
[2018-01-08 07:17] LABS: INR 1.37 (0.93-1.08); PROTHROMBIN TIME 15.9 SECONDS (9.4-12.5)
[2018-01-08 07:20] LABS: ALB/GLOB RATIO 0.8 (1.1-1.8); ALT/SGPT 20 U/L (7-56); AST/SGOT 33 U/L (14-36); BLOOD UREA NITROGEN 15 mg/dL (7-21); CALCIUM 8.6 mg/dL (8.4-10.5); GFR AFRICAN-AMERICAN > 60; GFR NON-AFRICAN AMERICAN > 60
[2018-01-08 08:03] VITALS: PULSE 80; RESP 20; TEMP 98.2; O2SAT 98
--- NOTE | 2018-01-08 09:05 | PN ---
SUBJECTIVE: The patient was seen and examined at bedside on the general medical hinkle. No acute events overnight. She remains afebrile, hemodynamically stable and demonstrating gradual clinical improvement. She is pending TCU evaluation for possible transfer for continued PT and local wound care. PHYSICAL EXAMINATION VITAL SIGNS: Temperature 98.2, pulse 80, blood pressure 127/68, respiratory rate 20, oxygen saturation 98% on room air. GENERAL: Morbidly obese woman, lying in bed, in no apparent distress. HEENT: PERRL. EOMI. No scleral icterus. Mild conjunctival pallor is noted. NECK: No JVD. LUNGS: Clear to auscultation. CARDIOVASCULAR: Regular rate and rhythm. Normal S1 and S2. ABDOMEN: Obese, normoactive bowel sounds. Wound VAC in place. EXTREMITIES: Trace lower extremity edema bilaterally. NEUROLOGIC: Awake, alert and oriented x3. No focal motor deficits. LABORATORY DATA: WBC 7.2, hemoglobin 8.4, hematocrit 27, platelets 422. Chemistry reviewed and unremarkable. INR of 1.37. ASSESSMENT: The patient is a 57-year-old woman with multiple medical comorbidities including morbid obesity who was recently discharged after an admission for management of stage II nonhealing pressure ulcer to the abdominal wall s/p OR debridement s/p wound VAC who was found to have increasing erythema and discharge from her abdominal wall wound who was sent to the ED for surgical reevaluation and who is now s/p repeat OR debridement with placement of wound VAC. PLAN: 1. Cellulitis of the abdominal wall with stage II pressure ulcer s/p OR s/p wound VAC. Continue with postoperative care as per the surgical team. Input from Dr. Ross appreciated. Continue with current antimicrobials. 2. Dilated cardiomyopathy with an EF of 20%. Continue current medications. Continue Coumadin 4 mg p.o. daily with goal INR of 2-3. 3. 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 Continue Coumadin 4 mg p.o. daily with goal INR of 2-3. She will require lifelong anticoagulation in the setting of dilated cardiomyopathy with an EF of 20%. 4. Hypertension. Blood pressure controlled. Continue current medications. 5. Iron-deficiency anemia. Continue Feosol 324 mg p.o. t.i.d. 6. NIDDM, diet controlled, with most recent A1c of 5.9. Continue to monitor fingersticks before every meal and at bedtime. 7. Anxiety disorder. Continue Xanax 0.25 mg p.o. daily. 8. Morbid obesity. 9. Prophylaxis. GI prophylaxis is not indicated as the patient is eating. The patient remains on Coumadin thus DVT prophylaxis is not indicated. CODE STATUS: Full code. Jorge Nguyen MD MTDD
[2018-01-08] MEDS: ARNUITY ELLIPTA IH SCH (09:52)
[2018-01-08] MEDS: UMECLIDINIUM BRM IH SCH (09:52)
[2018-01-08] MEDS: VILANTEROL TR IH SCH (09:52)
[2018-01-08] MEDS: Insulin Regular 1 UNITS/0.01 ML ML SC SCH ×2 (09:53→12:18)
[2018-01-08] MEDS: Collagenase 250 Units/gm Ointment(30 gm) TOP SCH (09:54)
[2018-01-08] MEDS: Vancomycin 1gm in NS 250ml 1 GM/250 ML BAG IVPB SCH (09:59)
[2018-01-08 10:03] VITALS: BP 130/70
--- NOTE | 2018-01-08 18:33 | PN ---
DATE: 01/08/2018 SUBJECTIVE: The patient is seen early this morning in room 565, bed 2. No fevers and no chills. PHYSICAL EXAMINATION: VITAL SIGNS: Temperature is 97, blood pressure is 130/70, respiratory rate of 20, heart rate of 80. HEENT: Examination of HEENT is unremarkable. NECK: Supple. LUNGS: Have decreased breath sounds. HEART: Normal S1 and S2. ABDOMEN: Soft, nontender. LABORATORY DATA: Laboratory examination reveals a white count of 7.2, hemoglobin of 8, platelets of 422. Chemistries reveals a BUN of 16, creatinine of 0.8. Procalcitonin is noted less than 0.05. Microbiology is reviewed. ASSESSMENT AND PLAN: A 57-year-old female with abdominal wound infection with panniculitis and acute pulmonary embolus and on anticoagulation, hypertension, diabetes, morbid obesity with body mass index of 44, on vancomycin and Zosyn. Tolerating the antibiotics well. We will follow up closely with you. Brock Gambino MD
--- NOTE | 2018-01-09 11:30 | PQF DEBRID ---
This form is a permanent part of the medical record Dr. Hassan, debridement left side of abdomen--- ...."using a knife eschar was removed" --- please clarify if this is an excisional or non-excisional debridement. Also indicate the depth. Thank you. Clarification of your documentation is requested to better reflect the severity of illness and intensity of treatment of your patient. Indicators present [x] Documentation of wound care / debridement [] Technique: [] [x] Instrument used:[] used a knife [] Nature of Tissue Removed:[] [] Appearance of Wound:[] [] Size of Wound: [] [] Depth of Debridement: [] [] Other: [] Location in the medical record that reflects the above clinical findings: [] operative report Other Treatment Provided: [] PHYSICIAN'S RESPONSE Based on your medical judgment, can you further clarify the precise NATURE, DEPTH, EXTENT and / or METHODS of wound debridement utilized in this case: [] EXCISIONAL debridement use of a scalpel / blade to cut away tissue Depth (subcutaneous, fascia, muscle, soft tissue and bone) [] Size of Wound [] NON-EXCISIONAL debridement chemical, scrubbing, trimming with a scissor/ versajet [] Other, please indicate: [] [] If unable to determine, please check the box, sign and date. In responding to this query, please exercise your independent professional judgment. The fact that a question is asked does not imply that any particular answer is desired or expected. Thank you for your clarification on this documentation. If you have any questions please call:[ ] * Thank you, [ ]BRANDY TORRESreversing mill roller ISMAEL
--- NOTE | 2018-01-10 05:55 | DS ---
ADMITTING DIAGNOSES: Cellulitis of the abdominal wall with stage II pressure ulcer. DISCHARGE DIAGNOSES: Cellulitis of the abdominal wall with stage II pressure ulcer, status post operating room debridement with placement of wound vacuum-assisted closure. SECONDARY DIAGNOSES: Morbid obesity, diabetic cardiomyopathy, history of provoked deep venous thrombosis/pulmonary embolism, status post inferior vena cava filter placement, hypertension, iron-deficiency anemia, [id number] diabetes mellitus and anxiety disorder. CONSULTATIONS: Dr. Gambino (Infectious Disease) and Dr. Hassan (General Surgery). IMAGING STUDIES: Chest x-ray demonstrated cardiomegaly with mild pulmonary vascular congestion. PROCEDURES: Operating room debridement of necrotic abdominal wall tissue with placement of wound vacuum-assisted closure. HISTORY OF PRESENT ILLNESS: The patient is a 57-year-old woman with multiple medical comorbidities including morbid obesity, who was recently discharged from [facility] after being admitted for surgical management of cellulitis of the abdominal wall with a stage II pressure ulcer after failure of outpatient antimicrobials. Patient was initially admitted for operative debridement and underwent placement of wound VAC and had close outpatient follow up with Dr. Hassan and the surgical team in the wound care center. She was doing well until approximately 3 to 4 days prior to admission when she noted increasing erythema and malodorous discharge from her abdominal wall wound. She was advised to present to the ED for further evaluation and to asses the need for possible repeat OR debridement. Upon arrival to the ED, she was found to be afebrile and hemodynamically stable and was largely unremarkable laboratory studies. She was promptly evaluated by the surgical team and was advised that she will likely need repeat OR debridement and as such was admitted to the general medical hinkle for continued local wound care, IV antibiotics and planning for surgical intervention. HOSPITAL COURSE: Upon admission to the general medical hinkle, she was restarted on all of her home medications. She was also reevaluated by Dr. Gambino, Infectious Disease and restarted on antimicrobial therapy. She was taken to the OR where she underwent repeat debridement of her abdominal wall wound with placement of the wound VAC. Her postoperative course was uncomplicated and she was noted to progress well from the clinical standpoint. Given her decondition status and the need to establish good followup on an outpatient basis, she was transferred to the TCU for continued local wound care and physical therapy. CONDITION: Fair, improved. DISPOSITION: TCU. DISCHARGE MEDICATIONS: Coumadin 4 mg p.o. daily, carvedilol 3.125 mg p.o. b.i.d., Lasix 40 mg p.o. daily, Xanax 0.25 mg p.o. daily, lisinopril/HCTZ 10/12.5 mg p.o. daily, and Percocet 5/325 mg 1 tab p.o. every 6 hours p.r.n. pain. DISCHARGE INSTRUCTIONS: The patient was advised that if she develops any fevers, chills, rigors, nausea, vomiting, diarrhea, discharge from her abdominal wall wound or increasing erythema at her abdominal wound, notify her PMD or the nursing staff immediately. FOLLOWUP: The patient would be followed by her PMD and the consultants while on the TCU. Jorge Nguyen MD
== END 2018-01-08 16:11 | DRG 571 ==
LOC: ED 10:49 → ERH 13:29 → 5RSO 17:40 → 5RNO 12-31 16:13
PROVIDERS: ADMIT Student in an Organized Health Care Education/Training Program; ATTEND Student in an Organized Health Care Education/Training Program
PROC: 0JB80ZZ Excision of Abdomen Subcutaneous Tissue and Fascia, Open Approach (ICD-10-PCS; principal; 2018-01-01 12:30)
DX: L03.311 Cellulitis of abdominal wall (principal); K65.4 Sclerosing mesenteritis; I42.0 Dilated cardiomyopathy; Z68.41 Body mass index [BMI] 40.0-44.9, adult; M79.3 Panniculitis, unspecified; E11.649 Type 2 diabetes mellitus with hypoglycemia without coma; L89.892 Pressure ulcer of other site, stage 2; B96.20 Unspecified Escherichia coli [E. coli] as the cause of diseases classified elsewhere; I11.0 Hypertensive heart disease with heart failure; I50.9 Heart failure, unspecified; J44.9 Chronic obstructive pulmonary disease, unspecified; D50.9 Iron deficiency anemia, unspecified; I44.7 Left bundle-branch block, unspecified; F41.9 Anxiety disorder, unspecified; E66.01 Morbid (severe) obesity due to excess calories; Z79.84 Long term (current) use of oral hypoglycemic drugs; Z86.711 Personal history of pulmonary embolism; Z79.01 Long term (current) use of anticoagulants

== ENCOUNTER 2018-01-08 16:15 | Inpatient (IN) | payer BC ==
[2018-01-08] MEDS: Vancomycin 1gm in NS 250ml 1 GM/250 ML BAG IVPB SCH (21:00)
[2018-01-08] MEDS: Insulin Reg-LOW-Coverage SC SCH (22:24)
[2018-01-08] MEDS: Oxycodone/Acetaminophen 5/325 mg Tab PO PRN (22:25)
[2018-01-08] MEDS: Piperacillin/Tazobact 3.375 gm 100 ML IVPB SCH (22:36)
[2018-01-09] MEDS: Piperacillin/Tazobact 3.375 gm 100 ML IVPB SCH ×6 (00:34→23:18)
[2018-01-09] MEDS: Oxycodone/Acetaminophen 5/325 mg Tab PO PRN ×2 (05:16→17:53)
[2018-01-09] MEDS: Vancomycin 1gm in NS 250ml 1 GM/250 ML BAG IVPB SCH ×2 (06:00→20:00)
[2018-01-09 07:10] LABS: HEMOGLOBIN 9.1 g/dL (12.0-16.0); MEAN CELL VOLUME 86.7 fl (80.0-105.0); MEAN CORPUSCULAR HEMOGLOBIN 26.9 pg (25.0-35.0); MEAN CORPUSCULAR HGB CONC 31.1 g/dl (31.0-37.0); MEAN PLATELET VOLUME 8.7 fl (7.0-11.0); RBC 3.38 10^6/uL (3.5-6.1); RED CELL DISTRIBUTION WIDTH 18.4 % (11.5-14.5); WHITE BLOOD COUNT 8.5 10^3/ul (4.5-11.0)
[2018-01-09 07:20] LABS: INR 1.48 (0.93-1.08); PROTHROMBIN TIME 17.1 SECONDS (9.4-12.5)
[2018-01-09 07:24] LABS: ALB/GLOB RATIO 0.9 (1.1-1.8); ALBUMIN 3.3 g/dL (3.0-4.8); ALT/SGPT 14 U/L (7-56); AST/SGOT 21 U/L (14-36); BLOOD UREA NITROGEN 15 mg/dL (7-21); CALCIUM 8.9 mg/dL (8.4-10.5); GFR AFRICAN-AMERICAN > 60; GFR NON-AFRICAN AMERICAN > 60
[2018-01-09] MEDS: Insulin Reg-LOW-Coverage SC SCH ×4 (07:33→21:30)
[2018-01-09] MEDS: Non Formulary Medication (Fluticasone Furoate [Arnuity Ellipta] 1 PUFF) IH SCH (09:49)
[2018-01-09] MEDS: Non Formulary Medication (Umeclidinium Brm/Vilanterol Tr [Anoro Ellipta 62.5-25 Mcg Inh] 1 IH SCH (10:25)
--- NOTE | 2018-01-09 11:31 | HP ---
HISTORY OF PRESENT ILLNESS: The patient is a 57 year old woman with a past medical history of morbid obesity who was recently discharged from [facility] after being admitted for surgical management of cellulitis of the abdominal wall with a stage II pressure ulcer after failure of outpatient antimicrobials. The patient was initially admitted for operative debridement and underwent placement of wound VAC and had close followup with Dr. Hassan and the surgical team in the [facility]. The patient reportedly noted increased erythema and purulent discharge from her abdominal wall wound and was advised that she may require further debridement and was referred to the ED. Upon arrival to the ED she was found to be afebrile and hemodynamically stable and with largely unremarkable laboratory studies. The patient was admitted to the general medical hinkle for continued management of her abdominal wall wound with the intention of taking her back to the OR for repeat debridement. The patient underwent repeat debridement and placement of wound VAC and was subsequently transferred to the TCU for continued PT and local wound care. PAST MEDICAL HISTORY: As per HPI, also dilated cardiomyopathy, hypertension, non-insulin dependent diabetes mellitus, iron deficiency anemia, anxiety disorder and history of provoked DVT/PE s/p IVC filter placement. PAST SURGICAL HISTORY: As per HPI, also IVC filter placement. ALLERGIES: NKDA. MEDICATIONS: Coumadin 4 mg p.o. daily, Carvedilol 3.125 mg p.o. b.i.d., Lasix 40 mg p.o. daily, Xanax 0.25 mg p.o. daily, Lisinopril/HCTZ 10/12.5 mg p.o. daily and Percocet 5/325 mg 1 tab p.o. every 6 hours p.r.n. pain. FAMILY HISTORY: Noncontributory. SOCIAL HISTORY: No history of toxic habits. REVIEW OF SYSTEMS: A 14-point review of systems is negative except as per HPI. PHYSICAL EXAMINATION VITAL SIGNS: Temperature 98.4, pulse 78, blood pressure 129/82, respiratory rate 18, oxygen saturation 100% on room air. GENERAL: Morbidly obese woman, lying in bed, in no apparent distress. HEENT: PERRL, EOMI. No scleral icterus. Mild conjunctival pallor is noted. NECK: No JVD. LUNGS: Clear to auscultation. CARDIOVASCULAR: Regular rate and rhythm. Normal S1 and S2. ABDOMEN: Obese, normoactive bowel sounds, soft, nontender, nondistended. Wound VAC in place. EXTREMITIES: Trace lower extremity edema bilaterally. NEUROLOGIC: Awake, alert, and oriented x3. No focal motor deficits. LABORATORY DATA: WBC 8.5, hemoglobin 9.1, hematocrit 29, platelets 447. Chemistry reviewed and unremarkable. INR of 1.48. ASSESSMENT: The patient is a 57 year old woman with multiple medical comorbidities including morbid obesity who was recently discharged after an admission for management of stage II nonhealing pressure ulcer to the abdominal wall wound s/ p OR debridement s/p wound VAC who was found to have increasing erythema and discharge from her abdominal wall wound who was sent to the ED for surgical reevaluation and who is now s/p repeat OR debridement with placement of wound VAC. PLAN: 1. Cellulitis of the abdominal wall with stage II pressure ulcer s/p OR debridement s/p wound VAC. Continue with postoperative care as per the surgical team. Input from Dr. Gambino appreciated. Continue with current antimicrobials. 2. Dilated cardiomyopathy with an EF of 20%. Continue current medications. Continue Coumadin 4 mg p.o. daily with goal INR of 2-3. 3. 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 Continue Coumadin 4 mg p.o. daily with goal INR of 2-3. She will require lifelong anticoagulation in the setting of dilated cardiomyopathy with an EF of 20%. 4. Hypertension. Blood pressure controlled. Continue current medications. 5. Iron deficiency anemia. Continue Feosol 324 mg p.o. t.i.d. 6. Non-insulin dependent diabetes mellitus, diet controlled, with most recent A1c of 5.9. Continue to monitor fingersticks before every meal and at bedtime. 7. Anxiety disorder. Continue Xanax 0.25 mg p.o. daily. 8. Morbid obesity. 9. Prophylaxis. GI prophylaxis is not indicated as the patient is eating. The patient remains on Coumadin thus DVT prophylaxis is not indicated. CODE STATUS: Full code. Jorge Nguyen MD MTDDarío
--- NOTE | 2018-01-09 17:24 | CP.PCM.CON ---
History of Present Illness - History of Present Illness History of Present Illness: 57 year old female with PMH of HTN, DM, morbid obesity with BMI 45 was [place] [facility] [place] and underwent debridement and wound vacuum placement. She is now transferred to [facility] for continued medical therapy and physical therapy. Infectious Diseases consult is requested to further evaluate and manage. Her abdominal pain is controlled, no nausea or vomiting, no fever or chills, no diarrhea. Review of Systems - Review of Systems All systems: reviewed and no additional remarkable complaints except (as per HPI ) Past Patient History - Infectious Disease Hx of Infectious Diseases: None - Past Social History Smoking Status: Never Smoked - CARDIAC Hx Congestive Heart Failure: Yes - PULMONARY Hx Chronic Obstructive Pulmonary Disease (COPD): Yes - NEUROLOGICAL Hx Paralysis: No - HEENT Hx HEENT Problems: Yes (STRABISMUS WITH SX.) - RENAL Hx Chronic Kidney Disease: No - ENDOCRINE/METABOLIC Hx Diabetes Mellitus Type 2: Yes - HEMATOLOGICAL/ONCOLOGICAL Hx Blood Transfusions: Yes Hx Blood Transfusion Reaction: No - INTEGUMENTARY Hx Dermatological Problems: No - MUSCULOSKELETAL/RHEUMATOLOGICAL Hx Falls: No - GASTROINTESTINAL Hx Gastrointestinal Disorders: Yes (11/30/17 abd wound debridement/wound vac) - GENITOURINARY/GYNECOLOGICAL Hx Genitourinary Disorders: No Hx Reproductive Disorders: No - PSYCHIATRIC Hx Emotional Abuse: No Hx Physical Abuse: No Hx Substance Use: No - SURGICAL HISTORY Hx Surgeries: Yes - ANESTHESIA Hx Anesthesia Reactions: No Hx Malignant Hyperthermia: No Meds Allergies/Adverse Reactions: Allergies Allergy/AdvReac Type Severity Reaction Status Date / Time No Known Allergies Allergy Verified 12/04/17 21:14 - Medications Medications: Current Medications Acetaminophen (Tylenol 325mg Tab) 650 mg PO Q4H PRN; Protocol PRN Reason: Fever >100.4 F Carvedilol (Coreg) 3.125 mg PO 0800,1800 [facility] PRN Reason: Protocol Ferrous Sulfate (Feosol) 324 mg PO TID [facility] Furosemide (Lasix) 40 mg PO 0630 [facility] PRN Reason: Protocol Last Admin: 01/09/18 05:54 Dose: 40 mg Hydrochlorothiazide (Microzide) 12.5 mg PO DAILY [facility] PRN Reason: Protocol Vancomycin HCl (Vancomycin 1gm) 1 gm in 250 mls @ 167 mls/hr IVPB Q12H [facility] PRN Reason: Protocol Last Admin: 01/09/18 06:00 Dose: 167 mls/hr Piperacillin Sod/Tazobactam Sod (Zosyn 3.375 In Ns 100ml) 100 mls @ 200 mls/hr IVPB Q6 [facility] PRN Reason: Protocol Stop: 01/09/18 12:29 Last Admin: 01/09/18 05:55 Dose: Not Given Insulin Human Regular (Humulin R Low) 0 units SC ACHS [facility] PRN Reason: Protocol Last Admin: 01/08/18 22:24 Dose: Not Given Lisinopril (Zestril) 10 mg PO DAILY [facility] PRN Reason: Protocol Non-Formulary Medication (Fluticasone Furoate [Arnuity Ellipta]) 1 puff IH QAM [facility] Non-Formulary Medication (Umeclidinium Brm/Vilanterol Tr [Anoro Ellipta 62.5-25 Mcg Inh]) 1 puff IH QAM [facility] Oxycodone/Acetaminophen (Percocet 5/325 Mg Tab) 1 tab PO Q6H PRN; Protocol PRN Reason: Pain, severe (8-10) Stop: 01/11/18 21:35 Last Admin: 01/09/18 05:16 Dose: 1 tab Warfarin Sodium (Coumadin) 4 mg PO 1800 [facility] PRN Reason: Protocol Physical Exam - Constitutional Appears: Chronically Ill - Head Exam Head Exam: NORMAL INSPECTION - ENT Exam ENT Exam: Mucous Membranes Moist - Neck Exam Neck exam: Negative for: Meningismus - Respiratory Exam Respiratory Exam: Decreased Breath Sounds - Cardiovascular Exam Cardiovascular Exam: +S1, +S2 - GI/Abdominal Exam GI & Abdominal Exam: Soft. absent: Tenderness Additional comments: wound vacuum in place Results - Vital Signs Recent Vital Signs: Last Vital Signs Temp 98.3 F 01/08/18 17:15 Pulse 86 01/08/18 17:57 Resp 16 01/08/18 17:15 BP 129/82 01/09/18 05:54 Pulse Ox 100 01/08/18 17:15 - Labs Result Diagrams: 01/09/18 06:50 01/09/18 06:50 Labs: Laboratory Results - last 24 hr 01/09/18 04:43 POC Glucose (mg/dL) 154 H Assessment & Plan - Assessment and Plan (Free Text) Plan: Assessment abdominal wound infection with panniculitis S/P debridement and wound vacuum placement history of acute pulmonary embolism, on anticoagulation HTN DM morbid obesity with BMI 44 Plan continue Vancomycin and Zosyn and follow up further plans of Surgery will continue to monitor clinically
[2018-01-09] MEDS ORDERED: Piperacillin/Tazobact 3.375 gm 100 ML IVPB SCH ×2 (21:30)
[2018-01-10] MEDS: Oxycodone/Acetaminophen 5/325 mg Tab PO PRN ×2 (03:30→20:21)
[2018-01-10] MEDS: Piperacillin/Tazobact 3.375 gm 100 ML IVPB SCH ×4 (05:21→23:50)
[2018-01-10] MEDS: Vancomycin 1gm in NS 250ml 1 GM/250 ML BAG IVPB SCH ×2 (06:38→18:07)
[2018-01-10] MEDS: Insulin Reg-LOW-Coverage SC SCH ×4 (06:49→22:49)
--- NOTE | 2018-01-10 10:05 | PN ---
SUBJECTIVE: The patient was seen and examined at bedside on the TCU. No acute events overnight. She remains afebrile and hemodynamically stable and is doing well with physical therapy and occupational therapy. OBJECTIVE: VITAL SIGNS: Temperature 98.4, pulse 88, blood pressure 120/75, respiratory rate 18, oxygen saturation 96% on room air. GENERAL: Morbidly obese woman, lying in bed, in no apparent distress. HEENT: PERRL, EOMI. No scleral icterus. Mild conjunctival pallor is noted. NECK: No JVD. LUNGS: Clear to auscultation. CARDIOVASCULAR: Regular rate and rhythm. Normal S1 and S2. ABDOMEN: Obese, normoactive bowel sounds. Soft, nontender and nondistended. Wound VAC in place. EXTREMITIES: Trace lower extremity edema bilaterally. NEUROLOGIC: Awake, alert and oriented x 3. No focal motor deficits. LABORATORY DATA: Morning labs are pending. ASSESSMENT: The patient is a 57 year old woman with multiple medical comorbidities including morbid obesity who was recently discharged after an admission for management of stage II nonhealing pressure ulcer to the abdominal wall wound s/ p OR debridement s/p wound VAC who was found to have increasing erythema and discharge from her abdominal wall wound who was sent to the ED for surgical reevaluation and who is now s/p repeat OR debridement with placement of wound VAC. PLAN: 1. Cellulitis of the abdominal wall with stage II pressure ulcer s/p OR debridement s/p wound VAC. Continue with postoperative care as per the surgical team. Input from Dr. Ross appreciated. Continue with current antimicrobials. 2. Dilated cardiomyopathy with an EF of 20%. Continue current medications. Continue Coumadin 4 mg p.o. daily with goal INR of 2-3. 3. 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 Continue Coumadin 4 mg p.o. daily with goal INR of 2-3. She will require lifelong anticoagulation in the setting of dilated cardiomyopathy with an EF of 20%. 4. Hypertension. Blood pressure controlled. Continue with current medications. 5. Iron-deficiency anemia. Continue Feosol 324 mg p.o. t.i.d. 6. NIDDM, diet controlled, with most A1c of 5.9. Continue to monitor fingersticks before every meal and at bedtime. 7. Anxiety disorder. Continue Xanax 0.25 mg p.o. daily. 8. Morbid obesity. 9. Prophylaxis. GI prophylaxis is not indicated as the patient is eating. The patient remains on Coumadin thus DVT prophylaxis is not indicated. CODE STATUS: Full code. Jorge Nguyen MD MTDD
[2018-01-10 10:06] LABS: HEMOGLOBIN 9.5 g/dL (12.0-16.0); MEAN CELL VOLUME 86.2 fl (80.0-105.0); MEAN CORPUSCULAR HEMOGLOBIN 27.3 pg (25.0-35.0); MEAN CORPUSCULAR HGB CONC 31.7 g/dl (31.0-37.0); MEAN PLATELET VOLUME 8.5 fl (7.0-11.0); RBC 3.48 10^6/uL (3.5-6.1); RED CELL DISTRIBUTION WIDTH 18.2 % (11.5-14.5); WHITE BLOOD COUNT 8.2 10^3/ul (4.5-11.0)
[2018-01-10 10:09] LABS: INR 1.62 (0.93-1.08); PROTHROMBIN TIME 18.8 SECONDS (9.4-12.5)
[2018-01-10] MEDS: Non Formulary Medication (Umeclidinium Brm/Vilanterol Tr [Anoro Ellipta 62.5-25 Mcg Inh] 1 IH SCH (10:32)
[2018-01-10] MEDS: Non Formulary Medication (Fluticasone Furoate [Arnuity Ellipta] 1 PUFF) IH SCH (10:33)
[2018-01-10 11:16] LABS: ALB/GLOB RATIO 0.9 (1.1-1.8); ALBUMIN 3.4 g/dL (3.0-4.8); ALT/SGPT 20 U/L (7-56); AST/SGOT 18 U/L (14-36); BLOOD UREA NITROGEN 19 mg/dL (7-21); CALCIUM 8.7 mg/dL (8.4-10.5); GFR AFRICAN-AMERICAN > 60; GFR NON-AFRICAN AMERICAN > 60
--- NOTE | 2018-01-10 16:46 | PN ---
DATE: 01/10/2018 SUBJECTIVE: The patient is in bed, in no acute distress, nontoxic. The patient is seen in room 322. PHYSICAL EXAMINATION: VITAL SIGNS: On exam, temperature is 98, blood pressure is 120/70, respiratory rate of 18, heart rate of 72. HEENT: Examination of HEENT is unremarkable. NECK: Supple. LUNGS: Have decreased breath sounds. HEART: Normal S1, S2. ABDOMEN: Soft. LABORATORY DATA: Laboratory examination reveals the patient to have a white count of 8.2, hemoglobin is 9.5 and coagulation is noted. Chemistries reveals a BUN of 19, creatinine of 0.9. ASSESSMENT AND PLAN: A 57-year-old female with hypertension, diabetes, morbid obesity, body mass index of 45, admitted with chronic abdominal wound, underwent debridement and wound vacuum-assisted closure. Abdominal wound infection with panniculitis, status post debridement and wound vacuum-assisted closure placement; history of acute pulmonary embolism, on anticoagulation; and hypertension and diabetes, morbid obesity, body mass index of 44, on vancomycin and Zosyn. Review of the orders reveals the patient's vancomycin and Zosyn . We will follow with you. Brock Gambino MD
--- NOTE | 2018-01-11 02:08 | CON ---
DATE: HISTORY OF PRESENT ILLNESS: The patient is a 57-year-old female with not known previous psychiatric history. The patient denied history of depression. Denied history of suicidal attempts. Denied history of being admitted to the psychiatric inpatient unit. The patient has multiple medical issues. The patient was admitted on the medical side for evaluation of abdominal wound worsening and debridement and vacuum placement. The patient also has history of hypertension, diabetes and morbidly obese. BMI of 45. Currently, the patient is on Transitional Care Unit. Psych consult was called because the patient is on psychotropic medication, Xanax daily, as well as elopement risk, which is surprising for this check writer. The patient was seen and examined. The patient presented to be alert and oriented, but seems to be in good spirit. The patient is quite aware of what was her medical issues and what was the main reason why she was admitted to the medical floor. The patient reported that at times she feels very anxious, and for which Dr. Nguyen is prescribing her Xanax 0.25 mg daily. The patient reported at times she goes with no Xanax for months. The patient reported that the other day, she was very anxious because of the vacuum machine, most likely will be changed to the bigger size. The patient said that she cannot carry the bigger machine and that is why she was feeling very anxious. The patient reported that she does not feel depressed. She wants to get better and she lives independently. She has future oriented plans. The patient wants to go back to work. 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 The patient reported that she does not feel depressed, does not want to hurt herself. Denied hearing voices, denied seeing things, denied paranoid ideation. The patient does not appear to be psychotic either. The patient is very pleasant and cooperative. The patient has never been evaluated by Psychiatrist before. Previous history reviewed. The patient denied history of substance abuse. The patient denied smoking. The patient denied history of being admitted to the psychiatric inpatient unit. VITAL SIGNS: Reviewed, seems to be stable. Temperature 98.4, pulse is 88, blood pressure 120/75, respiration 18, oxygen saturation is 93. MEDICATIONS: Reviewed. Tylenol, Xanax 0.25 mg daily - will be switched to p.r.n. The patient is on Coreg, Feosol, Lasix, hydrochlorothiazide, lisinopril, oxycodone, piperacillin, vancomycin and warfarin. LABORATORY DATA: Reviewed. Most recent was from today. Hemoglobin and hematocrit are 9.5 and 30.0. Coagulation reviewed. Chemistry reviewed from today. MENTAL STATUS EXAMINATION: The patient appears to be alert and oriented, pleasant, cooperative. Good eye contact. Mood described "I feel fine." Affect was reactive, mood congruent. Thought process, coherent and goal directed. There is sometimes circumstantiality, but no tangentials. Insight and judgment seems to be fair. The patient expressed no willingness to leave hospital against medical advice or elopement. The patient wants to get better and complete the treatment. Impulses are well controlled. IMPRESSION: Anxiety due to general medical condition, rule out generalized anxiety disorder. PLAN: Continue current management. Physical therapy, Xanax 0.25 mg daily as needed for anxiety. This check writer will sign off. The patient pose no imminent danger to self or others. The patient denied being depressed. Denied feeling anxious, very pleasant and cooperative. Thank you for your consult. Should you have any questions, give me a call back. Thank you very much. Chani Mcpherson MD
[2018-01-11] MEDS: Oxycodone/Acetaminophen 5/325 mg Tab PO PRN ×3 (04:39→21:20)
[2018-01-11] MEDS: Piperacillin/Tazobact 3.375 gm 100 ML IVPB SCH ×3 (05:27→17:53)
[2018-01-11] MEDS: Vancomycin 1gm in NS 250ml 1 GM/250 ML BAG IVPB SCH ×2 (06:09→18:01)
[2018-01-11] MEDS: Insulin Reg-LOW-Coverage SC SCH ×4 (07:00→22:31)
[2018-01-11 07:20] LABS: MEAN CELL VOLUME 86.5 fl (80.0-105.0); MEAN CORPUSCULAR HEMOGLOBIN 26.9 pg (25.0-35.0); MEAN CORPUSCULAR HGB CONC 31.1 g/dl (31.0-37.0); MEAN PLATELET VOLUME 8.7 fl (7.0-11.0); RBC 3.34 10^6/uL (3.5-6.1); RED CELL DISTRIBUTION WIDTH 18.5 % (11.5-14.5); WHITE BLOOD COUNT 7.1 10^3/ul (4.5-11.0)
[2018-01-11 07:35] LABS: INR 1.74 (0.93-1.08); PROTHROMBIN TIME 20.2 SECONDS (9.4-12.5)
[2018-01-11 07:37] LABS: ALB/GLOB RATIO 0.8 (1.1-1.8); ALT/SGPT 22 U/L (7-56); AST/SGOT 19 U/L (14-36); BLOOD UREA NITROGEN 18 mg/dL (7-21); CALCIUM 8.6 mg/dL (8.4-10.5); GFR AFRICAN-AMERICAN > 60; GFR NON-AFRICAN AMERICAN > 60
[2018-01-11] MEDS: Non Formulary Medication (Fluticasone Furoate [Arnuity Ellipta] 1 PUFF) IH SCH (10:52)
[2018-01-11] MEDS: Non Formulary Medication (Umeclidinium Brm/Vilanterol Tr [Anoro Ellipta 62.5-25 Mcg Inh] 1 IH SCH (10:52)
--- NOTE | 2018-01-11 14:37 | PN ---
DATE: 01/11/2018 LOCATION: The patient is in room 322, bed 1. SUBJECTIVE: The patient states that she feels well. There had been no acute events overnight. PHYSICAL EXAMINATION: VITAL SIGNS: Temperature of 98.3, pulse rate of 82, blood pressure 136/86, respiratory rate of 18 with 98% O2 saturation on room air. HEENT: Negative. NECK: Full range of motion. No bruits are appreciated. LUNGS: Clear. HEART: Regular rate and rhythm. ABDOMEN: Benign. The area of debridement is covered. NEUROLOGIC: There are no focal deficits. LABORATORY DATA: Hemoglobin and hematocrit of 9 with 28.9, which is stable. RDW of 18.5. Chemistry is entirely normal with the exception of a random glucose of 155. At this point, we will continue rehab and monitor the patient. CURRENT DIAGNOSES: Cellulitis of the abdominal wall, hypoglycemia and cellulitis. The patient is also hypertensive, diabetic with congestive heart failure. Obi Nguyen MD
--- NOTE | 2018-01-11 16:08 | CP.PCM.PCO ---
Physician Communication Note - Physician Communication Note Physician Communication Note: wound vac changed, next change 01/16
[2018-01-12] MEDS: Piperacillin/Tazobact 3.375 gm 100 ML IVPB SCH ×5 (05:44→23:37)
[2018-01-12] MEDS: Oxycodone/Acetaminophen 5/325 mg Tab PO PRN ×3 (05:56→20:18)
[2018-01-12] MEDS: Vancomycin 1gm in NS 250ml 1 GM/250 ML BAG IVPB SCH ×2 (06:49→18:58)
[2018-01-12] MEDS: Insulin Reg-LOW-Coverage SC SCH ×4 (06:50→21:58)
[2018-01-12 09:01] LABS: INR 1.87 (0.93-1.08); PROTHROMBIN TIME 21.8 SECONDS (9.4-12.5)
--- NOTE | 2018-01-12 09:12 | PN ---
SUBJECTIVE: The patient was seen and examined at bedside on the TCU. No acute events overnight. She remains afebrile and hemodynamically stable and is doing well with PT and OT. OBJECTIVE: VITAL SIGNS: Temperature 98.2, pulse 80, blood pressure 121/76, respiratory rate 99% on room air. GENERAL: Morbidly obese woman, sitting up in her chair, in no apparent distress. HEENT: PERRL, EOMI. No scleral icterus. Mild conjunctival pallor is noted. NECK: No JVD. LUNGS: Clear to auscultation. CARDIOVASCULAR: Regular rate and rhythm. Normal S1 and S2. ABDOMEN: Obese. Normoactive bowel sounds. Soft, nontender and nondistended. Wound VAC in place. EXTREMITIES: Trace lower extremity edema bilaterally. NEUROLOGIC: Awake, alert and oriented x 3. No focal motor deficits. LABORATORY DATA: No new labs. ASSESSMENT: The patient is a 57 year old woman with multiple medical comorbidities including morbid obesity who was recently discharged after an admission for management of stage II nonhealing pressure ulcer to the abdominal wall wound s/ p OR debridement s/p wound VAC who was found to have increasing erythema and discharge from her abdominal wall wound who was sent to the ED for surgical reevaluation and who is now s/p repeat OR debridement with placement of wound VAC. PLAN: 1. Cellulitis of the abdominal wall with stage II pressure ulcer s/p OR debridement s/p wound VAC. Continue with postoperative care as per the surgical team. Input from Dr. Ross appreciated. Continue with current antimicrobials. 2. Dilated cardiomyopathy with an EF of 20%. Continue current medications. Continue Coumadin 4 mg p.o. daily with goal INR of 2-3. 3. 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 Continue Coumadin 4 mg p.o. daily with goal INR of 2-3. She will require a lifelong anticoagulation therapy in the setting of dilated cardiomyopathy with an EF of 20%. 4. Hypertension. Blood pressure controlled. Continue current medications. 5. Iron-deficiency anemia. Continue Feosol 324 mg p.o. t.i.d. 6. NIDDM, diet controlled, with most recent A1c of 5.9. Continue to monitor fingersticks before every meal and at bedtime. 7. Anxiety disorder. Continue Xanax 0.25 mg p.o. daily. 8. Morbid obesity. 9. Prophylaxis. GI prophylaxis is not indicated as the patient is eating. The patient remains on Coumadin thus DVT prophylaxis is not indicated. CODE STATUS: Full code. Jorge Nguyen MD MTDDarío
[2018-01-12] MEDS: Non Formulary Medication (Fluticasone Furoate [Arnuity Ellipta] 1 PUFF) IH SCH (09:53)
[2018-01-12] MEDS: Non Formulary Medication (Umeclidinium Brm/Vilanterol Tr [Anoro Ellipta 62.5-25 Mcg Inh] 1 IH SCH (09:54)
[2018-01-12] MEDS: Bacitracin Ointment 30 GM TUBE TOP SCH ×2 (10:06→18:58)
[2018-01-13] MEDS: Oxycodone/Acetaminophen 5/325 mg Tab PO PRN ×2 (05:17→17:30)
[2018-01-13] MEDS: Piperacillin/Tazobact 3.375 gm 100 ML IVPB SCH ×4 (05:17→23:36)
[2018-01-13] MEDS: Vancomycin 1gm in NS 250ml 1 GM/250 ML BAG IVPB SCH ×2 (06:14→18:00)
[2018-01-13] MEDS: Insulin Reg-LOW-Coverage SC SCH ×4 (06:50→21:32)
[2018-01-13] MEDS: Bacitracin Ointment 30 GM TUBE TOP SCH ×2 (09:16→17:03)
[2018-01-13] MEDS: Non Formulary Medication (Umeclidinium Brm/Vilanterol Tr [Anoro Ellipta 62.5-25 Mcg Inh] 1 IH SCH (09:17)
[2018-01-13] MEDS: Non Formulary Medication (Fluticasone Furoate [Arnuity Ellipta] 1 PUFF) IH SCH (09:17)
--- NOTE | 2018-01-13 13:34 | CP.PCM.PN ---
Subjective - Date & Time of Evaluation Date of Evaluation: 01/13/18 Time of Evaluation: 13:15 - Subjective Subjective: Patient is resting comfortably on a chair, no fevers. Objective - Vital Signs/Intake and Output Vital Signs (last 24 hours): Temp Pulse Resp BP Pulse Ox 98.3 F 79 20 134/79 91 L 01/12/18 14:04 01/13/18 09:26 01/12/18 14:04 01/13/18 09:26 01/12/18 14:04 - Medications Medications: Current Medications Acetaminophen (Tylenol 325mg Tab) 650 mg PO Q4H PRN; Protocol PRN Reason: Fever >100.4 F Alprazolam (Xanax) 0.25 mg PO DAILY PRN; Protocol PRN Reason: Anxiety Stop: 01/16/18 14:01 Bacitracin (Bacitracin) 1 gm TOP BID [facility] Last Admin: 01/13/18 09:16 Dose: 1 oin Carvedilol (Coreg) 3.125 mg PO 0800,1800 [facility] PRN Reason: Protocol Last Admin: 01/13/18 07:47 Dose: 3.125 mg Ferrous Sulfate (Feosol) 324 mg PO TID [facility] Last Admin: 01/13/18 09:17 Dose: 324 mg Furosemide (Lasix) 40 mg PO 0630 [facility] PRN Reason: Protocol Last Admin: 01/13/18 06:14 Dose: 40 mg Hydrochlorothiazide (Microzide) 12.5 mg PO DAILY [facility] PRN Reason: Protocol Last Admin: 01/13/18 09:18 Dose: 12.5 mg Vancomycin HCl (Vancomycin 1gm) 1 gm in 250 mls @ 167 mls/hr IVPB Q12H [facility] PRN Reason: Protocol Last Admin: 01/13/18 06:14 Dose: 167 mls/hr Piperacillin Sod/Tazobactam Sod (Zosyn 3.375 In Ns 100ml) 100 mls @ 200 mls/hr IVPB Q6 [facility] PRN Reason: Protocol Stop: 01/16/18 18:01 Last Admin: 01/13/18 11:47 Dose: 200 mls/hr Insulin Human Regular (Humulin R Low) 0 units SC ACHS [facility] PRN Reason: Protocol Last Admin: 01/13/18 11:46 Dose: 1 units Lisinopril (Zestril) 10 mg PO DAILY [facility] PRN Reason: Protocol Last Admin: 01/13/18 09:26 Dose: 10 mg Non-Formulary Medication (Fluticasone Furoate [Arnuity Ellipta]) 1 puff IH QAM [facility] Last Admin: 01/13/18 09:17 Dose: 1 puff Non-Formulary Medication (Umeclidinium Brm/Vilanterol Tr [Anoro Ellipta 62.5-25 Mcg Inh]) 1 puff IH QAM [facility] Last Admin: 01/13/18 09:17 Dose: 1 puff Oxycodone/Acetaminophen (Percocet 5/325 Mg Tab) 1 tab PO Q6H PRN PRN Reason: moderate pain 8-10 Stop: 01/14/18 22:34 Last Admin: 01/13/18 05:17 Dose: 1 tab Warfarin Sodium (Coumadin) 4 mg PO 1800 [facility] PRN Reason: Protocol Last Admin: 01/12/18 17:27 Dose: 4 mg - Labs Labs: 01/11/18 06:45 01/11/18 06:45 PT 21.8 SECONDS (9.4-12.5) H 01/12/18 08:40 INR 1.87 (0.93-1.08) H 01/12/18 08:40 - Constitutional Appears: Chronically Ill - Head Exam Head Exam: NORMAL INSPECTION - Respiratory Exam Respiratory Exam: Decreased Breath Sounds - Cardiovascular Exam Cardiovascular Exam: +S1, +S2 - GI/Abdominal Exam GI & Abdominal Exam: Soft. absent: Tenderness Additional comments: dressings in place Assessment and Plan - Assessment and Plan (Free Text) Plan: Assessment abdominal wound infection with panniculitis S/P debridement and wound vacuum placement history of acute pulmonary embolism, on anticoagulation HTN DM morbid obesity with BMI 44 Plan continue Vancomycin and Zosyn and follow up further plans of Surgery - for wound vacuum replacement on January 16, 2018 - can switch to PO antibiotics (PO doxycycline and Augmentin) on discharge, for another 5-7 days of therapy will continue to monitor clinically
--- NOTE | 2018-01-13 16:43 | PN ---
SUBJECTIVE: The patient was seen and examined at bedside on the TCU. No acute events overnight. She remains afebrile, hemodynamically stable and is doing well with physical therapy. PHYSICAL EXAMINATION VITAL SIGNS: Temperature 98.2, pulse 79, blood pressure 134/79, respiratory rate 18, oxygen saturation 99% on room air. GENERAL: Morbidly obese woman, sitting up in her chair, in no apparent distress. HEENT: PERRL, EOMI. No scleral icterus. Mild conjunctival pallor is noted. NECK: No JVD. LUNGS: Clear to auscultation. CARDIOVASCULAR: Regular rate and rhythm. Normal S1 and S2. ABDOMEN: Obese. Normoactive bowel sounds. Soft, nontender and nondistended. Wound VAC in place. EXTREMITIES: Trace lower extremity edema bilaterally. NEUROLOGIC: Awake, alert and oriented x 3. No focal motor deficits. LABORATORY DATA: No new labs. ASSESSMENT: The patient is a 57 year old woman with multiple medical comorbidities including morbid obesity who was recently discharged after an admission for management of stage II nonhealing pressure ulcer to the abdominal wall s/p OR debridement s/p wound VAC who was found to have increasing erythema and discharge from her abdominal wall wound and who was sent to the ED for surgical reevaluation and who is now s/p repeat OR debridement with replacement of wound VAC. PLAN: 1. Cellulitis of the abdominal wall with stage II pressure ulcer s/p OR debridement s/p wound VAC. Continue with postoperative care as per the surgical team. Continue with current antimicrobials as per ID. 2. Dilated cardiomyopathy with an EF of 20%. Continue current medications. Continue Coumadin 4 mg p.o. daily with goal INR of 2-3. 3. 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 Continue Coumadin 4 mg p.o. daily with goal INR of 2-3. She will require lifelong anticoagulation therapy in the setting of dilated cardiomyopathy with an EF of 20%. 4. Hypertension. Blood pressure controlled. Continue current medications. 5. Iron-deficiency anemia. Continue Feosol 324 mg p.o. t.i.d. 6. NIDDM, diet controlled, with most recent A1c of 5.9. Continue to monitor fingersticks before every meals and at bedtime. 7. Anxiety disorder. Continue Xanax 0.25 mg p.o. daily. 8. Morbid obesity. 9. Prophylaxis. GI prophylaxis is not indicated as the patient is eating. The patient remains on Coumadin thus DVT prophylaxis is not indicated. CODE STATUS: Full code. Jorge Nguyen MD MTDDarío
[2018-01-14] MEDS: Piperacillin/Tazobact 3.375 gm 100 ML IVPB SCH ×4 (05:32→23:58)
[2018-01-14] MEDS: Oxycodone/Acetaminophen 5/325 mg Tab PO PRN ×2 (05:42→15:46)
[2018-01-14] MEDS: Vancomycin 1gm in NS 250ml 1 GM/250 ML BAG IVPB SCH ×2 (06:14→18:01)
[2018-01-14] MEDS: Insulin Reg-LOW-Coverage SC SCH ×4 (06:38→21:38)
[2018-01-14 07:13] LABS: HEMOGLOBIN 8.8 g/dL (12.0-16.0); MEAN CELL VOLUME 86.9 fl (80.0-105.0); MEAN CORPUSCULAR HEMOGLOBIN 26.8 pg (25.0-35.0); MEAN CORPUSCULAR HGB CONC 30.9 g/dl (31.0-37.0); MEAN PLATELET VOLUME 8.9 fl (7.0-11.0); RBC 3.28 10^6/uL (3.5-6.1); RED CELL DISTRIBUTION WIDTH 18.8 % (11.5-14.5); WHITE BLOOD COUNT 6.2 10^3/ul (4.5-11.0)
[2018-01-14 07:21] LABS: INR 2.17 (0.93-1.08); PROTHROMBIN TIME 25.3 SECONDS (9.4-12.5)
[2018-01-14 07:41] LABS: ALB/GLOB RATIO 0.9 (1.1-1.8); ALBUMIN 3.2 g/dL (3.0-4.8); ALT/SGPT 26 U/L (7-56); AST/SGOT 20 U/L (14-36); BLOOD UREA NITROGEN 26 mg/dL (7-21); CALCIUM 8.6 mg/dL (8.4-10.5); GFR AFRICAN-AMERICAN > 60; GFR NON-AFRICAN AMERICAN > 60
[2018-01-14] MEDS: Bacitracin Ointment 30 GM TUBE TOP SCH ×2 (09:40→17:46)
[2018-01-14] MEDS: Non Formulary Medication (Fluticasone Furoate [Arnuity Ellipta] 1 PUFF) IH SCH (09:41)
[2018-01-14] MEDS: Non Formulary Medication (Umeclidinium Brm/Vilanterol Tr [Anoro Ellipta 62.5-25 Mcg Inh] 1 IH SCH (09:45)
--- NOTE | 2018-01-14 09:56 | PN ---
SUBJECTIVE: The patient was seen and examined at bedside on the TCU. No acute events overnight. She remains afebrile, hemodynamically stable and offers no complaints. OBJECTIVE: VITAL SIGNS: Temperature 98.1, pulse 78, blood pressure 134/54, respiratory rate 18, oxygen saturation 95% on room air. GENERAL: Morbidly obese woman, sitting up in her chair, in no apparent distress. HEENT: PERRL, EOMI. No scleral icterus. Mild conjunctival pallor is noted. NECK: No JVD. LUNGS: Clear to auscultation. CARDIOVASCULAR: Regular rate and rhythm. Normal S1 and S2. ABDOMEN: Obese, normoactive bowel sounds, soft, nontender, nondistended. Wound VAC in place. EXTREMITIES: Trace lower extremity edema bilaterally. NEUROLOGIC: Awake, alert and oriented x 3. No focal motor deficits. LABORATORY DATA: WBC 6.2, hemoglobin 8.8, hematocrit 28.5, platelets 330. Chemistry reviewed and unremarkable. INR 2.17. ASSESSMENT: The patient is a 57 year old woman of multiple medical comorbidities including morbid obesity who was recently discharged after an admission for management of stage II nonhealing pressure ulcer to the abdominal wall s/p OR debridement s/p wound VAC who was found to have increasing erythema and discharge from her abdominal wall wound and who was sent to the ED for surgical reevaluation who is now s/p repeat OR debridement with replacement of wound VAC. PLAN: 1. Cellulitis of the abdominal wall with stage II pressure ulcer s/p OR debridement s/p wound VAC. Continue with postoperative care as per the surgical team. Continue with current antimicrobials as per ID. 2. Dilated cardiomyopathy with an EF of 20%. Continue current medications. Continue Coumadin 4 mg p.o. daily with goal INR of 2-3. 3. 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 Continue Coumadin 4 mg p.o. daily with goal INR of 2-3. She will require lifelong anticoagulation therapy in the setting of dilated cardiomyopathy with an EF of 20%. 4. Hypertension. Blood pressure controlled. Continue current medications. 5. Iron deficiency anemia. Continue Feosol 324 mg p.o. t.i.d. 6. NIDDM, diet controlled, with most recent A1c of 5.9. Continue to monitor fingersticks before every meals and at bedtime. 7. Anxiety disorder. Continue Xanax 0.25 mg p.o. daily. 8. Morbid obesity. 9. Prophylaxis. GI prophylaxis is not indicated as the patient is eating. The patient remains on Coumadin thus DVT prophylaxis is not indicated. CODE STATUS: Full code. Jorge Nguyen MD MTDDarío
[2018-01-14 15:29] VITALS: O2SAT 100
[2018-01-15] MEDS ORDERED: Oxycodone/Acetaminophen 5/325 mg Tab PO STA (01:23)
--- NOTE | 2018-01-15 01:23 | CP.PCM.PN ---
Subjective - Date & Time of Evaluation Date of Evaluation: 01/15/18 Time of Evaluation: 01:23 - Subjective Subjective: Nurse calls for an order for pain medicine. As per her, a percocet order has fallen off NOV. Patient is sitting in chair, states that she has severe pain in LLQ area where she has abdominal wall wound. Has no other complaints. Denies fever , chills. Pertinent medical record was reviewed. This 57 year old white woman was admitted with fever, abdominal wall pain, cellulitis of abdominal wall. Has PMH of morbid obesity, NIDDM, HTN , dilated cardiomyopathy, anxiety, iron deficiency anemia, DVT/PE, IVC filter placement. Objective - Vital Signs/Intake and Output Vital Signs (last 24 hours): Temp Pulse Resp BP Pulse Ox 98.1 F 80 16 140/80 100 01/14/18 16:00 01/14/18 17:47 01/14/18 16:00 01/14/18 17:47 01/14/18 16:00 - Medications Medications: Current Medications Acetaminophen (Tylenol 325mg Tab) 650 mg PO Q4H PRN; Protocol PRN Reason: Fever >100.4 F Last Admin: 01/15/18 00:42 Dose: 650 mg Alprazolam (Xanax) 0.25 mg PO DAILY PRN; Protocol PRN Reason: Anxiety Stop: 01/16/18 14:01 Bacitracin (Bacitracin) 1 gm TOP BID [facility] Last Admin: 01/14/18 17:46 Dose: 1 oin Carvedilol (Coreg) 3.125 mg PO 0800,1800 [facility] PRN Reason: Protocol Last Admin: 01/14/18 17:47 Dose: 3.125 mg Ferrous Sulfate (Feosol) 324 mg PO TID [facility] Last Admin: 01/14/18 17:47 Dose: 324 mg Furosemide (Lasix) 40 mg PO 0630 [facility] PRN Reason: Protocol Last Admin: 01/14/18 05:34 Dose: 40 mg Hydrochlorothiazide (Microzide) 12.5 mg PO DAILY [facility] PRN Reason: Protocol Last Admin: 01/14/18 09:45 Dose: 12.5 mg Vancomycin HCl (Vancomycin 1gm) 1 gm in 250 mls @ 167 mls/hr IVPB Q12H [facility] PRN Reason: Protocol Last Admin: 01/14/18 18:01 Dose: 167 mls/hr Piperacillin Sod/Tazobactam Sod (Zosyn 3.375 In Ns 100ml) 100 mls @ 200 mls/hr IVPB Q6 [facility] PRN Reason: Protocol Stop: 01/16/18 18:01 Last Admin: 01/14/18 23:58 Dose: 200 mls/hr Insulin Human Regular (Humulin R Low) 0 units SC ACHS [facility] PRN Reason: Protocol Last Admin: 01/14/18 21:38 Dose: Not Given Lisinopril (Zestril) 10 mg PO DAILY [facility] PRN Reason: Protocol Last Admin: 01/14/18 09:45 Dose: 10 mg Non-Formulary Medication (Fluticasone Furoate [Arnuity Ellipta]) 1 puff IH QAM [facility] Last Admin: 01/14/18 09:41 Dose: 1 puff Non-Formulary Medication (Umeclidinium Brm/Vilanterol Tr [Anoro Ellipta 62.5-25 Mcg Inh]) 1 puff IH QAM [facility] Last Admin: 01/14/18 09:45 Dose: 1 puff Warfarin Sodium (Coumadin) 4 mg PO 1800 [facility] PRN Reason: Protocol Last Admin: 01/14/18 17:47 Dose: 4 mg - Labs Labs: 01/14/18 07:00 01/14/18 07:00 PT 25.3 SECONDS (9.4-12.5) H 01/14/18 07:00 INR 2.17 (0.93-1.08) H 01/14/18 07:00 Most Recent Lab Values WBC 6.2 10^3/ul (4.5-11.0) 01/14/18 07:00 RBC 3.28 10^6/uL (3.5-6.1) L 01/14/18 07:00 Hgb 8.8 g/dL (12.0-16.0) L 01/14/18 07:00 Hct 28.5 % (36.0-48.0) L 01/14/18 07:00 MCV 86.9 fl (80.0-105.0) 01/14/18 07:00 MCH 26.8 pg (25.0-35.0) 01/14/18 07:00 MCHC 30.9 g/dl (31.0-37.0) L 01/14/18 07:00 RDW 18.8 % (11.5-14.5) H 01/14/18 07:00 Plt Count 330 10^3/uL (120.0-450.0) 01/14/18 07:00 MPV 8.9 fl (7.0-11.0) 01/14/18 07:00 PT 25.3 SECONDS (9.4-12.5) H 01/14/18 07:00 INR 2.17 (0.93-1.08) H 01/14/18 07:00 Sodium 138 mmol/L (132-148) 01/14/18 07:00 Potassium 3.7 mmol/L (3.6-5.0) 01/14/18 07:00 Chloride 101 mmol/L (98-107) 01/14/18 07:00 Carbon Dioxide 26 mmol/L (21-33) 01/14/18 07:00 Anion Gap 14 (10-20) 01/14/18 07:00 BUN 26 mg/dL (7-21) H 01/14/18 07:00 Creatinine 0.8 mg/dl (0.7-1.2) 01/14/18 07:00 Est GFR ( Amer) > 60 01/14/18 07:00 Est GFR (Non-Af Amer) > 60 01/14/18 07:00 POC Glucose (mg/dL) 148 mg/dL (65-110) H 01/14/18 21:59 Random Glucose 150 mg/dL (70-110) H 01/14/18 07:00 Calcium 8.6 mg/dL (8.4-10.5) 01/14/18 07:00 Total Bilirubin 0.4 mg/dL (0.2-1.3) 01/14/18 07:00 AST 20 U/L (14-36) 01/14/18 07:00 ALT 26 U/L (7-56) 01/14/18 07:00 Alkaline Phosphatase 104 U/L (38-126) 01/14/18 07:00 Total Protein 6.9 g/dL (5.8-8.3) 01/14/18 07:00 Albumin 3.2 g/dL (3.0-4.8) 01/14/18 07:00 Globulin 3.7 gm/dL 01/14/18 07:00 Albumin/Globulin Ratio 0.9 (1.1-1.8) L 01/14/18 07:00 - Constitutional Appears: Well, No Acute Distress - Head Exam Head Exam: ATRAUMATIC, NORMAL INSPECTION, NORMOCEPHALIC Additional comments: Sitting in the chair comfortabley. - Eye Exam Eye Exam: Normal appearance - ENT Exam ENT Exam: Normal External Ear Exam - Neck Exam Neck Exam: Normal Inspection - Respiratory Exam Respiratory Exam: NORMAL BREATHING PATTERN - Cardiovascular Exam Cardiovascular Exam: absent: JVD - GI/Abdominal Exam GI & Abdominal Exam: absent: Distended - Rectal Exam Rectal Exam: Deferred - Extremities Exam Extremities Exam: Normal Inspection - Back Exam Back Exam: NORMAL INSPECTION - Neurological Exam Neurological Exam: Alert, Awake, Oriented x3 - Skin Skin Exam: Normal Color Additional comments: Abdominal wall dressing clean and dry. Assessment and Plan - Assessment and Plan (Free Text) Assessment: Abdominal wall wound/cellulitis. Abdominal wall pain. Morbid obesity. NIDDM. Dilated CMP. Anxiety. Iron deficiency anemia. History of PE/DVT/IVC filter placement. Plan: Percocet 5/325 I PO x 1. Continue present management as per PMD.
[2018-01-15] MEDS: Piperacillin/Tazobact 3.375 gm 100 ML IVPB SCH ×2 (05:15→12:00)
[2018-01-15] MEDS: Vancomycin 1gm in NS 250ml 1 GM/250 ML BAG IVPB SCH (06:02)
[2018-01-15] MEDS: Insulin Reg-LOW-Coverage SC SCH ×4 (07:56→21:31)
--- NOTE | 2018-01-15 09:05 | CP.PCM.PN ---
Subjective - Date & Time of Evaluation Date of Evaluation: 01/15/18 Time of Evaluation: 09:02 - Subjective Subjective: Patient seen and examined at bedside. Per nursing no acute events occurred overnight. Patient denies any fevers, chills, nausea, vomiting, headache, abdominal pain, changes in vision, or any other complaints. Objective - Vital Signs/Intake and Output Vital Signs (last 24 hours): Temp Pulse Resp BP Pulse Ox 98.1 F 75 16 125/71 100 01/14/18 16:00 01/15/18 07:55 01/14/18 16:00 01/15/18 07:55 01/14/18 16:00 - Medications Medications: Current Medications Acetaminophen (Tylenol 325mg Tab) 650 mg PO Q4H PRN; Protocol PRN Reason: Fever >100.4 F Last Admin: 01/15/18 00:42 Dose: 650 mg Alprazolam (Xanax) 0.25 mg PO DAILY PRN; Protocol PRN Reason: Anxiety Stop: 01/16/18 14:01 Bacitracin (Bacitracin) 1 gm TOP BID [facility] Last Admin: 01/14/18 17:46 Dose: 1 oin Carvedilol (Coreg) 3.125 mg PO 0800,1800 [facility] PRN Reason: Protocol Last Admin: 01/15/18 07:55 Dose: 3.125 mg Ferrous Sulfate (Feosol) 324 mg PO TID [facility] Last Admin: 01/14/18 17:47 Dose: 324 mg Furosemide (Lasix) 40 mg PO 0630 [facility] PRN Reason: Protocol Last Admin: 01/15/18 05:29 Dose: 40 mg Hydrochlorothiazide (Microzide) 12.5 mg PO 0800 [facility] PRN Reason: Protocol Vancomycin HCl (Vancomycin 1gm) 1 gm in 250 mls @ 167 mls/hr IVPB Q12H [facility] PRN Reason: Protocol Last Admin: 01/15/18 06:02 Dose: 167 mls/hr Piperacillin Sod/Tazobactam Sod (Zosyn 3.375 In Ns 100ml) 100 mls @ 200 mls/hr IVPB Q6 [facility] PRN Reason: Protocol Stop: 01/16/18 18:01 Last Admin: 01/15/18 05:15 Dose: 200 mls/hr Insulin Human Regular (Humulin R Low) 0 units SC ACHS [facility] PRN Reason: Protocol Last Admin: 01/15/18 07:56 Dose: Not Given Lisinopril (Zestril) 10 mg PO DAILY [facility] PRN Reason: Protocol Last Admin: 01/14/18 09:45 Dose: 10 mg Non-Formulary Medication (Fluticasone Furoate [Arnuity Ellipta]) 1 puff IH QAM [facility] Last Admin: 01/14/18 09:41 Dose: 1 puff Non-Formulary Medication (Umeclidinium Brm/Vilanterol Tr [Anoro Ellipta 62.5-25 Mcg Inh]) 1 puff IH QAM [facility] Last Admin: 01/14/18 09:45 Dose: 1 puff Oxycodone/Acetaminophen (Percocet 5/325 Mg Tab) 1 tab PO Q6H PRN PRN Reason: Pain, severe (8-10) Stop: 01/18/18 07:46 Warfarin Sodium (Coumadin) 4 mg PO 1800 [facility] PRN Reason: Protocol Last Admin: 01/14/18 17:47 Dose: 4 mg - Labs Labs: 01/14/18 07:00 01/14/18 07:00 PT 25.3 SECONDS (9.4-12.5) H 01/14/18 07:00 INR 2.17 (0.93-1.08) H 01/14/18 07:00 - Head Exam Head Exam: ATRAUMATIC, NORMAL INSPECTION, NORMOCEPHALIC - Eye Exam Eye Exam: EOMI - ENT Exam ENT Exam: Mucous Membranes Moist - Respiratory Exam Respiratory Exam: NORMAL BREATHING PATTERN - Cardiovascular Exam Cardiovascular Exam: REGULAR RHYTHM - GI/Abdominal Exam GI & Abdominal Exam: Soft, Normal Bowel Sounds Additional comments: Wound with wound vac in place. - Extremities Exam Extremities Exam: Full ROM, Normal Inspection. absent: Pedal Edema - Back Exam Back Exam: NORMAL INSPECTION - Neurological Exam Neurological Exam: Alert, Awake - Psychiatric Exam Psychiatric exam: Normal Affect, Normal Mood - Skin Skin Exam: Dry, Intact Assessment and Plan - Assessment and Plan (Free Text) Assessment: 57 year old female with abdominal wound. Plan: -Continue wound vac. -Wound care nurse following -Pain management Will discuss with Attending.
--- NOTE | 2018-01-15 09:57 | PN ---
SUBJECTIVE: The patient was seen and examined at bedside in the TCU. No acute events overnight. She remains afebrile and hemodynamically stable and offers no complaints. OBJECTIVE: VITAL SIGNS: Temperature 98.1, pulse 75, blood pressure 125/71, respiratory rate 18, oxygen saturation 100% on room air. GENERAL: Morbidly obese woman, lying in bed, in no apparent distress. HEENT: PERRL, EOMI. No scleral icterus. Mild conjunctival pallor is noted. NECK: No JVD. LUNGS: Clear to auscultation. CARDIOVASCULAR: Regular rate and rhythm. Normal S1 and S2. ABDOMEN: Obese, normoactive bowel sounds. Soft, nontender and nondistended. Wound VAC in place. EXTREMITIES: Trace lower extremity edema bilaterally. NEUROLOGIC: Awake, alert and oriented x 3. No focal motor deficits. LABORATORY DATA: No new labs. ASSESSMENT: The patient is a 57 year old woman with multiple medical comorbidities including morbid obesity who was recently discharged after an admission for management of stage II nonhealing pressure ulcer to the abdominal wall s/p OR debridement s/p wound VAC who was found to have increasing erythema and discharge from her abdominal wall wound and who was sent to the ED for surgical reevaluation and who is now s/p repeat OR debridement with replacement of wound VAC. PLAN: 1. Cellulitis of the abdominal wall with stage II pressure ulcer s/p OR debridement s/p wound VAC. Continue with postoperative care as per the surgical team. Continue with antimicrobial as per ID. 2. Dilated cardiomyopathy with an EF of 20%. Continue current medications. Continue Coumadin 4 mg p.o. daily with goal INR 2-3. 3. 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 Continue Coumadin 4 mg p.o. daily with goal INR 2-3. She will require lifelong anticoagulation therapy in the setting of dilated cardiomyopathy with an EF of 20%. 4. Hypertension. Blood pressure controlled. Continue current medications. 5. Iron deficiency anemia. Continue Feosol 324 mg p.o. t.i.d. 6. NIDDM, diet controlled, with most recent A1c of 5.9. Continue to monitor fingersticks before every meal and at bedtime. 7. Anxiety disorder. Continue Xanax 0.25 mg p.o. daily. 8. Morbid obesity. 9. Prophylaxis. GI prophylaxis is not indicated as the patient is eating. The patient remains on Coumadin thus DVT prophylaxis is not indicated. CODE STATUS: Full code. Jorge Nguyen MD ISMAEL
[2018-01-15] MEDS: Bacitracin Ointment 30 GM TUBE TOP SCH ×2 (10:28→17:29)
[2018-01-15] MEDS: Non Formulary Medication (Fluticasone Furoate [Arnuity Ellipta] 1 PUFF) IH SCH (10:29)
[2018-01-15] MEDS: Non Formulary Medication (Umeclidinium Brm/Vilanterol Tr [Anoro Ellipta 62.5-25 Mcg Inh] 1 IH SCH (10:30)
[2018-01-15] MEDS: Oxycodone/Acetaminophen 5/325 mg Tab PO PRN ×2 (11:59→20:06)
--- NOTE | 2018-01-15 14:22 | CP.PCM.PN ---
Subjective - Date & Time of Evaluation Date of Evaluation: 01/15/18 Time of Evaluation: 11:25 - Subjective Subjective: Comfortable, no fevers, not in distress, less pain in the abdomen. Objective - Vital Signs/Intake and Output Vital Signs (last 24 hours): Temp Pulse Resp BP Pulse Ox 98.1 F 75 16 125/71 100 01/14/18 16:00 01/15/18 07:55 01/14/18 16:00 01/15/18 07:55 01/14/18 16:00 - Medications Medications: Current Medications Acetaminophen (Tylenol 325mg Tab) 650 mg PO Q4H PRN; Protocol PRN Reason: Fever >100.4 F Last Admin: 01/15/18 00:42 Dose: 650 mg Alprazolam (Xanax) 0.25 mg PO DAILY PRN; Protocol PRN Reason: Anxiety Stop: 01/16/18 14:01 Bacitracin (Bacitracin) 1 gm TOP BID [facility] Last Admin: 01/14/18 17:46 Dose: 1 oin Carvedilol (Coreg) 3.125 mg PO 0800,1800 [facility] PRN Reason: Protocol Last Admin: 01/15/18 07:55 Dose: 3.125 mg Ferrous Sulfate (Feosol) 324 mg PO TID [facility] Last Admin: 01/14/18 17:47 Dose: 324 mg Furosemide (Lasix) 40 mg PO 0630 [facility] PRN Reason: Protocol Last Admin: 01/15/18 05:29 Dose: 40 mg Hydrochlorothiazide (Microzide) 12.5 mg PO 0800 [facility] PRN Reason: Protocol Vancomycin HCl (Vancomycin 1gm) 1 gm in 250 mls @ 167 mls/hr IVPB Q12H [facility] PRN Reason: Protocol Last Admin: 01/15/18 06:02 Dose: 167 mls/hr Piperacillin Sod/Tazobactam Sod (Zosyn 3.375 In Ns 100ml) 100 mls @ 200 mls/hr IVPB Q6 [facility] PRN Reason: Protocol Stop: 01/16/18 18:01 Last Admin: 01/15/18 05:15 Dose: 200 mls/hr Insulin Human Regular (Humulin R Low) 0 units SC ACHS [facility] PRN Reason: Protocol Last Admin: 01/15/18 07:56 Dose: Not Given Lisinopril (Zestril) 10 mg PO DAILY [facility] PRN Reason: Protocol Last Admin: 01/14/18 09:45 Dose: 10 mg Non-Formulary Medication (Fluticasone Furoate [Arnuity Ellipta]) 1 puff IH QAM [facility] Last Admin: 01/14/18 09:41 Dose: 1 puff Non-Formulary Medication (Umeclidinium Brm/Vilanterol Tr [Anoro Ellipta 62.5-25 Mcg Inh]) 1 puff IH QAM [facility] Last Admin: 01/14/18 09:45 Dose: 1 puff Oxycodone/Acetaminophen (Percocet 5/325 Mg Tab) 1 tab PO Q6H PRN PRN Reason: Pain, severe (8-10) Stop: 01/18/18 07:46 Warfarin Sodium (Coumadin) 4 mg PO 1800 [facility] PRN Reason: Protocol Last Admin: 01/14/18 17:47 Dose: 4 mg - Labs Labs: 01/14/18 07:00 01/14/18 07:00 PT 25.3 SECONDS (9.4-12.5) H 01/14/18 07:00 INR 2.17 (0.93-1.08) H 01/14/18 07:00 - Constitutional Appears: Chronically Ill - Head Exam Head Exam: NORMAL INSPECTION - ENT Exam ENT Exam: Mucous Membranes Moist - Neck Exam Neck Exam: absent: Meningismus - Respiratory Exam Respiratory Exam: Decreased Breath Sounds - Cardiovascular Exam Cardiovascular Exam: +S1, +S2 - GI/Abdominal Exam GI & Abdominal Exam: Soft. absent: Tenderness Additional comments: wound vacuum in place Assessment and Plan - Assessment and Plan (Free Text) Plan: Assessment abdominal wound infection with panniculitis S/P debridement and wound vacuum placement history of acute pulmonary embolism, on anticoagulation HTN DM morbid obesity with BMI 44 Plan on Vancomycin and Zosyn day 18 and follow up further plans of Surgery - for wound vacuum replacement today - can switch to PO antibiotics (PO doxycycline and Augmentin) for another 5-7 days of therapy will continue to monitor clinically while the patient is in the hospital
[2018-01-15] MEDS: Amoxicillin-Clav 875-125 mg Tab PO SCH (20:05)
[2018-01-16 05:32] VITALS: BP 142/94
[2018-01-16 06:01] VITALS: PULSE 88; RESP 20; TEMP 98
[2018-01-16] MEDS: Oxycodone/Acetaminophen 5/325 mg Tab PO PRN ×2 (06:14→13:27)
[2018-01-16] MEDS: Insulin Reg-LOW-Coverage SC SCH ×2 (06:44→12:15)
[2018-01-16] MEDS: Amoxicillin-Clav 875-125 mg Tab PO SCH (07:51)
--- NOTE | 2018-01-16 09:13 | PN ---
SUBJECTIVE: The patient was seen and examined at bedside on the TCU. No acute events overnight. She remains afebrile, hemodynamically stable and this morning offers no complaints. She is presently pending discharge to home. OBJECTIVE: VITAL SIGNS: Temperature 98, pulse 88, blood pressure 142/94, respiratory rate 18, oxygen saturation 100% on room air. GENERAL: Morbidly obese woman, lying in bed, in no apparent distress. HEENT: PERRL, EOMI. No scleral icterus. Mild conjunctival pallor is noted. NECK: No JVD. LUNGS: Clear to auscultation. CARDIOVASCULAR: Regular rate and rhythm. Normal S1 and S2. ABDOMEN: Obese. Normoactive bowel sounds. Soft, nontender, nondistended. Wound VAC in place. EXTREMITIES: Trace lower extremity edema bilaterally. NEUROLOGIC: Awake, alert and oriented x 3. No focal motor deficits. LABORATORY DATA: No new labs. ASSESSMENT: The patient is a 57 year old woman with multiple medical comorbidities including morbid obesity who was recently discharged after an admission for management of stage II nonhealing pressure ulcer to the abdominal wall s/p OR debridement s/p wound VAC who was found to have increasing erythema and discharge from her abdominal wall wound and who was sent to the ED for surgical reevaluation who is now s/p repeat OR debridement and replacement of wound VAC. PLAN: 1. Cellulitis of the abdominal wall with stage II pressure ulcer s/p OR debridement s/p wound VAC. Continue with postoperative care as per the surgical team. Continue with antimicrobials as per ID. 2. Dilated cardiomyopathy with an EF of 20%. Continue current medications. Continue Coumadin 4 mg p.o. daily with a goal INR of 2-3. 3. 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 Continue Coumadin 4 mg p.o. daily with goal INR of 2-3. She will require lifelong anticoagulation therapy in the setting of dilated cardiomyopathy with an EF of 20%. 4. Hypertension. Blood pressure controlled. Continue current medications. 5. Iron-deficiency anemia. Continue Feosol 324 mg p.o. t.i.d. 6. NIDDM, diet controlled, with most recent A1c of 5.9. Continue to monitor fingersticks before every meal and at bedtime. 7. Anxiety disorder. Continue Xanax 0.25 mg p.o. daily. 8. Morbid daily. 9. Prophylaxis. GI prophylaxis is not indicated as the patient is eating. She remains on Coumadin thus DVT prophylaxis is not indicated. CODE STATUS: Full code. Jorge Nguyen MD MTDDarío
[2018-01-16] MEDS: Bacitracin Ointment 30 GM TUBE TOP SCH (10:04)
[2018-01-16] MEDS: Non Formulary Medication (Fluticasone Furoate [Arnuity Ellipta] 1 PUFF) IH SCH (10:05)
[2018-01-16] MEDS: Non Formulary Medication (Umeclidinium Brm/Vilanterol Tr [Anoro Ellipta 62.5-25 Mcg Inh] 1 IH SCH (10:05)
== END 2018-01-16 16:52 | disposition home health service (06) | DRG 603 ==
LOC: TRCU 16:15
PROVIDERS: ADMIT Student in an Organized Health Care Education/Training Program; ATTEND Student in an Organized Health Care Education/Training Program
PROC: F07Z9ZZ Gait Training/Functional Ambulation Treatment (ICD-10-PCS; principal; 2018-01-10)
PROC: F07L6YZ Therapeutic Exercise Treatment of Musculoskeletal System - Lower Back / Lower Extremity using Other Equipment (ICD-10-PCS; 2018-01-10)
PROC: F08Z2ZZ Grooming/Personal Hygiene Treatment (ICD-10-PCS; 2018-01-10)
PROC: F08Z0ZZ Bathing/Showering Techniques Treatment (ICD-10-PCS; 2018-01-12)
PROC: 2W03X6Z Change Pressure Dressing on Abdominal Wall (ICD-10-PCS; 2018-01-13)
DX: L03.311 Cellulitis of abdominal wall (principal); I42.0 Dilated cardiomyopathy; Z68.42 Body mass index [BMI] 45.0-49.9, adult; L89.892 Pressure ulcer of other site, stage 2; M79.3 Panniculitis, unspecified; E66.01 Morbid (severe) obesity due to excess calories; I11.0 Hypertensive heart disease with heart failure; I50.9 Heart failure, unspecified; F06.4 Anxiety disorder due to known physiological condition; E11.9 Type 2 diabetes mellitus without complications; D50.9 Iron deficiency anemia, unspecified; Z79.84 Long term (current) use of oral hypoglycemic drugs; Z86.711 Personal history of pulmonary embolism; Z86.718 Personal history of other venous thrombosis and embolism; Z79.01 Long term (current) use of anticoagulants

== ENCOUNTER 2018-03-18 08:10 | Inpatient (IN) | payer BC ==
[2018-03-18 08:11] VITALS: BMI 40.8
[2018-03-18 10:01] LABS: BASO # 0.02 K/mm3 (0.0-2.0); BASO % 0.3 % (0.0-3.0); EOS # 0.2 (0.0-0.7); EOS % 2.2 % (1.5-5.0); GRAN # 5.57 (1.4-6.5); GRAN % 75.9 % (50.0-68.0); LYMPH # 0.9 (1.2-3.4); LYMPH % 12.6 % (22.0-35.0); MEAN CELL VOLUME 86.8 fl (80.0-105.0); MEAN CORPUSCULAR HEMOGLOBIN 28.8 pg (25.0-35.0); MEAN CORPUSCULAR HGB CONC 33.1 g/dl (31.0-37.0); MEAN PLATELET VOLUME 9.3 fl (7.0-11.0); MONO # 0.7 (0.1-0.6); RBC 4.17 10^6/uL (3.5-6.1); RED CELL DISTRIBUTION WIDTH 15.4 % (11.5-14.5); WHITE BLOOD COUNT 7.3 10^3/ul (4.5-11.0)
[2018-03-18 10:10] LABS: ALB/GLOB RATIO 0.8 (1.1-1.8); ALBUMIN 3.2 g/dL (3.0-4.8); ALT/SGPT 20 U/L (7-56); AST/SGOT 21 U/L (14-36); BLOOD UREA NITROGEN 25 mg/dL (7-21); CALCIUM 8.5 mg/dL (8.4-10.5); GFR AFRICAN-AMERICAN > 60; GFR NON-AFRICAN AMERICAN > 60
[2018-03-18 10:19] LABS: INR 2.06 (0.93-1.08); PARTIAL THROMBOPLASTIN TIME 31.9 Seconds (25.1-36.5); PROTHROMBIN TIME 24.1 SECONDS (9.4-12.5)
--- NOTE | 2018-03-18 10:34 | ED PDOC ---
Arrival/HPI - General Chief Complaint: Abnormal Skin Integrity Time Seen by Provider: 03/18/18 08:12 Historian: Patient - History of Present Illness Narrative History of Present Illness (Text): 03/18/18 10:29 A 57 year old female sent into the emergency department by Dr. Hassan for wound care. Patient has been following up with Dr. Hassna for a recurrent abdominal wound. She was last seen 3 days ago and instructed to come to the emergency room for possible additional wound debridement. Patient has also been receiving wound care by visiting nurse at home for 3 weeks. Patient denies any fever, chills, nausea, vomiting, chest pain, shortness of breath or any other complaints. PMD: Dr. Nguyen Surgeon: Dr. Hassan Time/Duration: Other (couple of weeks) Symptom Course: Other (recurrent) Quality: Other Context: Home Past Medical History - Provider Review Nursing Documentation Reviewed: Yes - Past History Past History: No Previous - Infectious Disease Hx of Infectious Diseases: None - Cardiac Hx Pacemaker: No - Pulmonary Hx Chronic Obstructive Pulmonary Disease (COPD): Yes Hx Pulmonary Embolism: Yes - Neurological Hx Paralysis: No - HEENT Hx HEENT Disorder: Yes (STRABISMUS WITH SX.) - Renal Hx Renal Disorder: No - Endocrine/Metabolic Hx Diabetes Mellitus Type 2: Yes - Hematological/Oncological Hx Blood Transfusions: Yes Hx Blood Transfusion Reaction: No - Integumentary Hx Dermatological Disorder: No - Musculoskeletal/Rheumatological Hx Musculoskeletal Disorders: Yes - Gastrointestinal Hx Gastrointestinal Disorders: Yes (11/30/17 abd wound debridement/wound vac) - Genitourinary/Gynecological Hx Genitourinary Disorders: No Hx Reproductive Disorders: No - Psychiatric Hx Emotional Abuse: No Hx Physical Abuse: No Hx Substance Use: No - Surgical History Other/Comment: I&D/ November 2017 of abdomianl wound left side with wound vac placement - Anesthesia Hx Anesthesia Reactions: No Hx Malignant Hyperthermia: No - Suicidal Assessment Feels Threatened In Home Enviroment: No Family/Social History - Physician Review Nursing Documentation Reviewed: Yes Family/Social History: No Known Family HX Smoking Status: Never Smoked Hx Alcohol Use: No Hx Substance Use: No Hx Substance Use Treatment: No Allergies/Home Meds Allergies/Adverse Reactions: Allergies No Known Allergies Allergy (Verified 03/18/18 08:29) Home Medications: Home Meds Medication Instructions Recorded Confirmed Alprazolam [Xanax] 0.25 mg PO PRN PRN 10/17/17 03/18/18 Fluticasone Furoate [Arnuity 1 puff IH QAM 10/17/17 03/18/18 Ellipta] Umeclidinium Brm/Vilanterol Tr 1 puff IH QAM 10/17/17 03/18/18 [Anoro Ellipta 62.5-25 Mcg INH] Folic Acid [FA-8] 0 mg PO DAILY 12/28/17 03/18/18 Vitamin B Complex [Super B-50 1 cap PO DAILY 12/28/17 03/18/18 Complex] Warfarin [Coumadin] 4 mg PO 1800 12/28/17 03/18/18 Carvedilol [Coreg] 3.125 mg PO BID 03/01/18 03/18/18 Iron 325 tab PO BID 03/01/18 03/18/18 Lisinopril/Hydrochlorothiazide 1 tab PO DAILY 03/01/18 03/18/18 [Lisinopril-Hctz 10-12.5 mg Tab] oxyCODONE [oxyCODONE Immediate 5 mg PO Q6H PRN 03/01/18 03/18/18 Release Tab] Review of Systems - Physician Review All systems were reviewed & negative as marked: Yes - Review of Systems Constitutional: absent: Fevers, Night Sweats Respiratory: absent: SOB Cardiovascular: absent: Chest Pain Gastrointestinal: Other (abdominal wound). absent: Nausea, Vomiting Physical Exam Vital Signs Reviewed: Yes Vital Signs Temp Pulse Pulse Resp BP Pulse Ox 03/18/18 13:40 98.2 F 86 86 20 144/88 03/18/18 13:10 86 03/18/18 12:15 98.2 F 86 20 144/88 96 03/18/18 08:45 88 18 145/80 98 03/18/18 08:41 98.4 F 95 H 19 99 Temperature: Afebrile Pulse: Tachycardic Respiratory Rate: Normal Appearance: Positive for: Well-Appearing, Non-Toxic, Comfortable Pain Distress: None Mental Status: Positive for: Alert and Oriented X 3 - Systems Exam Head: Present: Atraumatic, Normocephalic Pupils: Present: PERRL Extroacular Muscles: Present: EOMI Conjunctiva: Present: Normal Mouth: Present: Moist Mucous Membranes Neck: Present: Normal Range of Motion Respiratory/Chest: Present: Clear to Auscultation, Good Air Exchange. No: Respiratory Distress, Accessory Muscle Use Cardiovascular: Present: Regular Rate and Rhythm, Normal S1, S2. No: Murmurs Abdomen: Present: Normal Bowel Sounds, Other (2x12 cm wound, foul smelling, positive discharge, packing in place). No: Tenderness, Distention, Peritoneal Signs Back: Present: Normal Inspection Upper Extremity: Present: Normal Inspection. No: Cyanosis, Edema Lower Extremity: Present: Normal Inspection. No: Edema Neurological: Present: GCS=15, CN II-XII Intact, Speech Normal Skin: Present: Warm, Dry, Normal Color. No: Rashes Psychiatric: Present: Alert, Oriented x 3, Normal Insight, Normal Concentration Medical Decision Making ED Course and Treatment: 03/18/18 10:29 Impression: A 57 year old female sent in for abdominal wound care Plan: -- Labs -- Blood culture -- Reassess and disposition Progress Notes: Case discussed with Dr. Hassan's resident, who states they will come evaluate patient at bedside. Report Date : 03/18/2018 11:15:24 Procedure: Chest xray Dictator : Macho Connelly MD IMPRESSION: Poor inspiration with low lung volumes, crowded bronchovascular markings and minor bibasilar atelectasis. There also appears to be chronic linear curvilinear scarring in the left mid lung zone. Possible small left- sided effusion. - Lab Interpretations Lab Results: 03/18/18 09:20 03/18/18 09:20 Lab Results 03/18/18 09:20: Blood Type A POSITIVE, Antibody Screen Negative, BBK History Checked Patient has bt 03/18/18 09:20: Sodium 138, Potassium 4.0, Chloride 100, Carbon Dioxide 27, Anion Gap 15, BUN 25 H, Creatinine 0.6 L, Est GFR ( Amer) > 60, Est GFR ( Non-Af Amer) > 60, Random Glucose 205 H, Calcium 8.5, Total Bilirubin 0.5, AST 21, ALT 20, Alkaline Phosphatase 92, Total Protein 7.0, Albumin 3.2, Globulin 3.8, Albumin/Globulin Ratio 0.8 L 03/18/18 09:20: PT 24.1 H, INR 2.06 H, APTT 31.9 03/18/18 09:20: WBC 7.3, RBC 4.17, Hgb 12.0, Hct 36.2, MCV 86.8, MCH 28.8, MCHC 33.1, RDW 15.4 H, Plt Count 225, MPV 9.3, Gran % 75.9 H, Lymph % (Auto) 12.6 L, Nelson % (Auto) 9.0 H, Eos % (Auto) 2.2, Baso % (Auto) 0.3, Gran # 5.57, Lymph # ( Auto) 0.9 L, Nelson # (Auto) 0.7 H, Eos # (Auto) 0.2, Baso # (Auto) 0.02 I have reviewed the lab results: Yes - RAD Interpretation Radiology Orders: 03/18/18 10:52 CHEST PORTABLE [RAD] Stat - Medication Orders Current Medication Orders: Alprazolam (Xanax) 0.25 mg PO PRN PRN; Protocol PRN Reason: Anxiety Stop: 03/25/18 13:46 Carvedilol (Coreg) 3.125 mg PO BID [facility] Enoxaparin Sodium (Lovenox) 40 mg SC Q12H [facility] Last Admin: 03/18/18 15:01 Dose: 40 mg Subcutaneous Administrations Document 03/18/18 15:01 ISABELL (Rec: 03/18/18 15:01 ISABELL [id number]) Injection Site MAR Injection Site Right Abdomen Charges for Administration # of Subcutaneous Administrations 1 Furosemide (Lasix) 40 mg PO DAILY [facility] Last Admin: 03/18/18 15:01 Dose: 40 mg MAR Blood Pressure Document 03/18/18 15:01 ISABELL (Rec: 03/18/18 15:01 ISABELL [id number]) Blood Pressure Blood Pressure (100/60-150/90) 136/85 Hydrochlorothiazide (Microzide) 12.5 mg PO DAILY [facility] Insulin Human Regular (Humulin R Med) 0 units SC ACHS [facility] PRN Reason: Protocol Lisinopril (Zestril) 10 mg PO DAILY [facility] Non-Formulary Medication (Fluticasone Furoate [Arnuity Ellipta]) 1 puff IH 0700 [facility] Non-Formulary Medication (Folic Acid [Fa-8]) 0.8 mg PO DAILY [facility] Non-Formulary Medication (Umeclidinium Brm/Vilanterol Tr [Anoro Ellipta 62.5-25 Mcg Inh]) 1 puff IH 0700 [facility] Non-Formulary Medication (Vitamin B Complex [Super B-50 Complex]) 1 cap PO DAILY [facility] Oxycodone HCl (Oxycodone Immediate Release Tab) 5 mg PO Q6H PRN PRN Reason: Pain, severe (8-10) Discontinued Medications Enoxaparin Sodium (Lovenox) 40 mg SC Q12H [facility] PRN Reason: Protocol Last Admin: 03/18/18 15:02 Dose: Ferrous Sulfate (Feosol) 324 mg PO BID [facility] Ferrous Sulfate (Feosol) 324 mg PO .EXTRA DOSE ONE Stop: 03/18/18 14:31 Last Admin: 03/18/18 15:02 Dose: Non-Formulary Medication (Iron [Iron]) 325 tab PO BID [facility] Non-Formulary Medication (Lisinopril/Hydrochlorothiazide [Lisinopril-Hctz 10- 12.5 Mg Tab]) 1 tab PO DAILY [facility] Pneumococcal Polyvalent Vaccine (Pneumovax 23 Vaccine) 0.5 ml IM .ONCE ONE Stop: 03/18/18 14:29 - Scribe Statement The provider has reviewed the documentation as recorded by the Amirah Arriaga Provider Scribe Attestation: All medical record entries made by the Scribe were at my direction and personally dictated by me. I have reviewed the chart and agree that the record accurately reflects my personal performance of the history, physical exam, medical decision making, and the department course for this patient. I have also personally directed, reviewed, and agree with the discharge instructions and disposition. Disposition/Present on Arrival - Present on Arrival Any Indicators Present on Arrival: No History of DVT/PE: Yes History of Uncontrolled Diabetes: No Urinary Catheter: No History of Decub. Ulcer: No History Surgical Site Infection Following: None - Disposition Have Diagnosis and Disposition been Completed?: Yes Diagnosis: Wound, open, abdominal wall, anterior with complication Disposition: HOSPITALIZED Disposition Time: 10:20 Condition: FAIR
--- NOTE | 2018-03-18 11:00 | CP.PCM.CON ---
History of Present Illness - History of Present Illness History of Present Illness: Surgery Consult: Dr. Hassan 57 y/o F presents to ED for non-healing LLQ abdominal wound. Pt was seen by Dr. Hassan on in the office & was told to come to the hospital this week for debridement. Pt states she has had the wound since October & she underwent debridement on a previous admission. She is currently being seen by a visiting nurse at home that comes 3 times a week to clean and redress the wound. She states she has 5/10 pain around the wound & mostly with dressing changes. The patient has noticed the bandages that are removed are usually brown and sometimes malodorous. However, she denies any other associated symptoms with the wound. Pt denies fevers, nausea, vomiting, chest pain & SOB. PMHx: DM, HTN, CHF, COPD, PE in April 2017 PSHx: Eye surgery as a child, wound debridement FamHx: mother with breast cancer, father had diabetes SocialHx: denies smoking and alcohol use Review of Systems - Review of Systems All systems: reviewed and no additional remarkable complaints except (as per HPI ) Past Patient History - Infectious Disease Hx of Infectious Diseases: None - Past Medical History & Family History Past Medical History?: Yes Pertinent Family History: Mother: Breast cancer that mets to bone. Father: Diabetes - Past Social History Smoking Status: Never Smoked Alcohol: None - CARDIAC Hx Congestive Heart Failure: Yes Hx Hypertension: Yes Hx Pacemaker: No - PULMONARY Hx Chronic Obstructive Pulmonary Disease (COPD): Yes Hx Pulmonary Embolism: Yes - RENAL Hx Chronic Kidney Disease: No - ENDOCRINE/METABOLIC Hx Diabetes Mellitus Type 2: Yes - GENITOURINARY/GYNECOLOGICAL Hx Genitourinary Disorders: No Hx Reproductive Disorders: No - PSYCHIATRIC Hx Emotional Abuse: No Hx Physical Abuse: No Hx Substance Use: No - SURGICAL HISTORY Hx Eye Surgery: Yes (as a child) Other/Comment: I&D/ November 2017 of abdomianl wound left side with wound vac placement - ANESTHESIA Hx Anesthesia Reactions: No Hx Malignant Hyperthermia: No Meds Allergies/Adverse Reactions: Allergies Allergy/AdvReac Type Severity Reaction Status Date / Time No Known Allergies Allergy Verified 03/18/18 08:29 Physical Exam - Constitutional Appears: Well, No Acute Distress - Head Exam Head Exam: ATRAUMATIC, NORMOCEPHALIC - Eye Exam Eye Exam: Normal appearance - ENT Exam ENT Exam: Mucous Membranes Moist - Respiratory Exam Respiratory Exam: NORMAL BREATHING PATTERN - Cardiovascular Exam Cardiovascular Exam: RRR - GI/Abdominal Exam GI & Abdominal Exam: Soft. absent: Distended, Tenderness Additional comments: Large wound 12x5cm in left lower quadrant with surrounding erythema, necrotic tissue with exudate noted in wound bed. - Neurological Exam Neurological exam: Alert, Oriented x3 - Skin Skin Exam: Dry, Warm Results - Vital Signs Recent Vital Signs: Last Vital Signs Temp 98.4 F 03/18/18 08:41 Pulse 95 H 03/18/18 08:41 Resp 19 03/18/18 08:41 BP Pulse Ox 99 03/18/18 08:41 - Labs Result Diagrams: 03/18/18 09:20 03/18/18 09:20 Labs: Laboratory Results - last 24 hr 03/18/18 03/18/18 03/18/18 09:20 09:20 09:20 WBC 7.3 RBC 4.17 Hgb 12.0 Hct 36.2 MCV 86.8 MCH 28.8 MCHC 33.1 RDW 15.4 H Plt Count 225 MPV 9.3 Gran % 75.9 H Lymph % (Auto) 12.6 L Mcdowell % (Auto) 9.0 H Eos % (Auto) 2.2 Baso % (Auto) 0.3 Gran # 5.57 Lymph # (Auto) 0.9 L Mcdowell # (Auto) 0.7 H Eos # (Auto) 0.2 Baso # (Auto) 0.02 PT 24.1 H INR 2.06 H APTT 31.9 Sodium 138 Potassium 4.0 Chloride 100 Carbon Dioxide 27 Anion Gap 15 BUN 25 H Creatinine 0.6 L Est GFR ( Amer) > 60 Est GFR (Non-Af Amer) > 60 Random Glucose 205 H Calcium 8.5 Total Bilirubin 0.5 AST 21 ALT 20 Alkaline Phosphatase 92 Total Protein 7.0 Albumin 3.2 Globulin 3.8 Albumin/Globulin Ratio 0.8 L Blood Type Antibody Screen BBK History Checked 03/18/18 09:20 WBC RBC Hgb Hct MCV MCH MCHC RDW Plt Count MPV Gran % Lymph % (Auto) Mcdowell % (Auto) Eos % (Auto) Baso % (Auto) Gran # Lymph # (Auto) Mcdowell # (Auto) Eos # (Auto) Baso # (Auto) PT INR APTT Sodium Potassium Chloride Carbon Dioxide Anion Gap BUN Creatinine Est GFR ( Amer) Est GFR (Non-Af Amer) Random Glucose Calcium Total Bilirubin AST ALT Alkaline Phosphatase Total Protein Albumin Globulin Albumin/Globulin Ratio Blood Type A POSITIVE Antibody Screen Negative BBK History Checked Patient has bt Assessment & Plan - Assessment and Plan (Free Text) Assessment: 57 y/o F with large non-healing wound with surrounding erythema present in the LLQ Plan: - plan for debridement in the OR this week - INR 2.06; hold anticoagulation, monitor INR - continue local wound care with Dakins & wet to dry dressings BID - d/w Dr. Mo Prieto, PGY-3
--- NOTE | 2018-03-18 11:17 | RAD ---
HISTORY: r/o infiltrate COMPARISON: Comparison chest 02/25/2018 FINDINGS: LUNGS: Poor inspiration with low lung volumes, crowded bronchovascular markings and minor bibasilar atelectasis. There also appears to be chronic linear curvilinear scarring in the left mid lung zone. Possible Questionable small left-sided effusion. PLEURA: No significant pleural effusion identified, no pneumothorax apparent. CARDIOVASCULAR: Heart remains enlarged. OSSEOUS STRUCTURES: No significant abnormalities. VISUALIZED UPPER ABDOMEN: Normal. OTHER FINDINGS: None. IMPRESSION: Poor inspiration with low lung volumes, crowded bronchovascular markings and minor bibasilar atelectasis. There also appears to be chronic linear curvilinear scarring in the left mid lung zone. Possible small left-sided effusion.
--- NOTE | 2018-03-18 14:07 | CARD ---
APPROVED REPORT EKG Measurement Heart [id number] CT [id number] <Conclusion> Sinus rhythm with 1 PVC Nonspecific intraventricular block Possible Lateral infarct, age undetermined. NSSTW changes
[2018-03-18] MEDS ORDERED: Enoxaparin 30 mg Syringe SC SCH (14:15)
[2018-03-18] MEDS ORDERED: Pneumococcal 23-Valent Vaccine IM ONE (14:28)
[2018-03-18] MEDS: Enoxaparin 40 mg Syringe SC SCH (15:01)
[2018-03-18] MEDS ORDERED: IRON PO SCH (18:00)
[2018-03-18] MEDS: Insulin Reg-MEDIUM-Coverage SC SCH ×2 (18:19→22:20)
[2018-03-18] MEDS: oxyCODONE 5 mg Immediate Release Tab PO PRN (18:24)
--- NOTE | 2018-03-18 22:06 | CON ---
DATE: 03/18/2018 CARDIOLOGY CONSULTATION HISTORY OF PRESENT ILLNESS: The patient is a 57-year-old woman who presents with an abdominal wound that is requiring surgical debridement. PAST MEDICAL HISTORY: Notable for history of bilateral pulmonary embolism treated with Coumadin. In addition, she has documented dilated cardiomyopathy with an ejection fraction of 30% documented on a cardiac catheterization on 10/2017. She has an insignificant lesion in the diagonal vessel, which has been treated medically. MEDICATIONS: Include Coumadin as well as Lasix and carvedilol as well as afterload pharmacy director with HIRAM inhibitor. SOCIAL HISTORY: The patient denies smoking. REVIEW OF SYSTEMS: No angina. No dyspnea. No pedal edema. No dizziness. No PND. No orthopnea. PHYSICAL EXAMINATION: VITAL SIGNS: Blood pressure is 144/88; the heart rates in the 80s, normal sinus rhythm. NECK: Negative JVD. LUNGS: Clear to auscultation. HEART: Reveals S1, S2. EXTREMITIES: Without edema. ABDOMEN: Has a bandaged abdominal wound. EKG shows normal sinus rhythm with an IVCD and a left anterior hemiblock. LABORATORY DATA: Hemoglobin is 12. Chemistries, BUN and creatinine are 25 and 0.6, the glucose is 205. IMPRESSION; 1. Abdominal wound. 2. Severely dilated and hypokinetic left ventricle with an ejection fraction of 20%. 3. History of bilateral pulmonary embolism. 4. Diabetes mellitus. Given these findings, her poor LV function makes her high risk for any anesthesia. However, her poor LV function is well compensated with no evidence of CHF. In addition, her history of pulmonary embolism requires careful control of her anticoagulation. In the morning, if her INR is below 2, we would start Lovenox to bridge her until her planned surgery and then we would restart her anticoagulation as soon as possible. Her cardiac status, although placing her at higher risk, is at its optimum at this time. Florian Nguyễn MD
[2018-03-19] MEDS: Enoxaparin 40 mg Syringe SC SCH ×2 (01:59→15:19)
[2018-03-19] MEDS ORDERED: TDAP Vaccine 0.5 mL Syr IM ONE (05:04)
--- NOTE | 2018-03-19 05:10 | CP.PCM.PN ---
<Leon Francisco - Last Filed: 03/19/18 05:06> Subjective - Date & Time of Evaluation Date of Evaluation: 03/19/18 Time of Evaluation: 03:00 - Subjective Subjective: PGY-3 note: Received a call from nurse. Patient poked her R Index finger with the handle of the TV. Denies any bleeding or pain. PE: R Index finger with small maybe <2 ml cut / poke. Non bleeding. Dressed in a 2x2 dressing placed by nurse dressing c/d/i. Plan: - Reevaluate wound in the morning - Ordered Boostrix vaccine as patient does not know her last Tetanus shot. Case discussed with Dr Platt. Objective - Vital Signs/Intake and Output Vital Signs (last 24 hours): Temp Pulse Resp BP Pulse Ox 98.2 F 84 19 125/82 97 03/18/18 18:34 03/18/18 18:34 03/18/18 18:34 03/18/18 18:34 03/18/18 18:34 - Medications Medications: Current Medications Alprazolam (Xanax) 0.25 mg PO PRN PRN; Protocol PRN Reason: Anxiety Stop: 03/25/18 13:46 Last Admin: 03/18/18 23:50 Dose: 0.25 mg Carvedilol (Coreg) 3.125 mg PO BID [facility] Last Admin: 03/18/18 18:20 Dose: 3.125 mg Enoxaparin Sodium (Lovenox) 40 mg SC Q12H [facility] Last Admin: 03/19/18 01:59 Dose: 40 mg Ferrous Sulfate (Feosol) 324 mg PO BID [facility] Last Admin: 03/18/18 18:20 Dose: 324 mg Furosemide (Lasix) 40 mg PO DAILY [facility] Last Admin: 03/18/18 15:01 Dose: 40 mg Hydrochlorothiazide (Microzide) 12.5 mg PO DAILY [facility] Insulin Human Regular (Humulin R Med) 0 units SC ACHS [facility] PRN Reason: Protocol Last Admin: 03/18/18 22:20 Dose: Not Given Lisinopril (Zestril) 10 mg PO DAILY [facility] Non-Formulary Medication (Fluticasone Furoate [Arnuity Ellipta]) 1 puff IH 0700 [facility] Non-Formulary Medication (Folic Acid [Fa-8]) 0.8 mg PO DAILY [facility] Non-Formulary Medication (Umeclidinium Brm/Vilanterol Tr [Anoro Ellipta 62.5-25 Mcg Inh]) 1 puff IH 0700 [facility] Non-Formulary Medication (Vitamin B Complex [Super B-50 Complex]) 1 cap PO DAILY [facility] Oxycodone HCl (Oxycodone Immediate Release Tab) 5 mg PO Q6H PRN PRN Reason: Pain, severe (8-10) Last Admin: 03/18/18 18:24 Dose: 5 mg Tetanus/Reduced Diphtheria/Acell Pertussis (Boostrix Vaccine Inj) 0.5 ml IM .ONCE ONE Stop: 03/19/18 05:05 - Labs Labs: PT 24.1 SECONDS (9.4-12.5) H 03/18/18 09:20 INR 2.06 (0.93-1.08) H 03/18/18 09:20 APTT 31.9 Seconds (25.1-36.5) 03/18/18 09:20 <Martine Platt - Last Filed: 03/19/18 10:59> Objective - Vital Signs/Intake and Output Vital Signs (last 24 hours): Temp Pulse Resp BP Pulse Ox 98.2 F 79 20 135/87 99 03/19/18 08:42 03/19/18 08:42 03/19/18 08:42 03/19/18 09:51 03/19/18 08:42 Intake and Output: 03/19/18 03/19/18 06:59 18:59 Intake Total 540 Output Total 2 Balance 538 - Medications Medications: Current Medications Alprazolam (Xanax) 0.25 mg PO PRN PRN; Protocol PRN Reason: Anxiety Stop: 03/25/18 13:46 Last Admin: 03/18/18 23:50 Dose: 0.25 mg Carvedilol (Coreg) 3.125 mg PO BID [facility] Last Admin: 03/19/18 09:51 Dose: 3.125 mg Enoxaparin Sodium (Lovenox) 40 mg SC Q12H [facility] Last Admin: 03/19/18 01:59 Dose: 40 mg Ferrous Sulfate (Feosol) 324 mg PO BID [facility] Last Admin: 03/19/18 09:51 Dose: 324 mg Furosemide (Lasix) 40 mg PO DAILY [facility] Last Admin: 03/19/18 09:51 Dose: 40 mg Hydrochlorothiazide (Microzide) 12.5 mg PO DAILY [facility] Last Admin: 03/19/18 09:51 Dose: 12.5 mg Cefazolin Sodium (Ancef 1gm In Ns) 1 gm in 100 mls @ 100 mls/hr IVPB STAT STA Stop: 03/19/18 11:37 Insulin Human Regular (Humulin R Med) 0 units SC ACHS [facility] PRN Reason: Protocol Last Admin: 03/19/18 08:10 Dose: Not Given Lisinopril (Zestril) 10 mg PO DAILY [facility] Last Admin: 03/19/18 09:51 Dose: 10 mg Non-Formulary Medication (Fluticasone Furoate [Arnuity Ellipta]) 1 puff IH 0700 [facility] Last Admin: 03/19/18 09:52 Dose: Not Given Non-Formulary Medication (Folic Acid [Fa-8]) 0.8 mg PO DAILY [facility] Non-Formulary Medication (Umeclidinium Brm/Vilanterol Tr [Anoro Ellipta 62.5-25 Mcg Inh]) 1 puff IH 0700 [facility] Non-Formulary Medication (Vitamin B Complex [Super B-50 Complex]) 1 cap PO DAILY [facility] Oxycodone HCl (Oxycodone Immediate Release Tab) 5 mg PO Q6H PRN PRN Reason: Pain, severe (8-10) Last Admin: 03/18/18 18:24 Dose: 5 mg - Labs Labs: 03/19/18 07:00 03/19/18 07:00 PT 24.1 SECONDS (9.4-12.5) H 03/18/18 09:20 INR 2.06 (0.93-1.08) H 03/18/18 09:20 APTT 31.9 Seconds (25.1-36.5) 03/18/18 09:20 Attending/Attestation - Attestation I have personally seen and examined this patient.: Yes I have fully participated in the care of the patient.: Yes I have reviewed all pertinent clinical information, including history, physical exam and plan: Yes Notes (Text): 03/19/18 10:57 Pt seen,discussed with resident,agree with assessment and orders placed.
[2018-03-19] MEDS ORDERED: Non Formulary Medication (Fluticasone Furoate [Arnuity Ellipta] 1 PUFF) IH SCH (07:00)
[2018-03-19] MEDS ORDERED: Non Formulary Medication (Umeclidinium Brm/Vilanterol Tr [Anoro Ellipta 62.5-25 Mcg Inh] 1 IH SCH (07:00)
[2018-03-19 07:19] LABS: BASO # 0.02 K/mm3 (0.0-2.0); BASO % 0.3 % (0.0-3.0); EOS # 0.2 (0.0-0.7); EOS % 2.3 % (1.5-5.0); GRAN # 5.55 (1.4-6.5); GRAN % 69.8 % (50.0-68.0); HEMOGLOBIN 11.9 g/dL (12.0-16.0); LYMPH # 1.4 (1.2-3.4); LYMPH % 17.4 % (22.0-35.0); MEAN CORPUSCULAR HEMOGLOBIN 28.3 pg (25.0-35.0); MEAN PLATELET VOLUME 9.7 fl (7.0-11.0); MONO # 0.8 (0.1-0.6); MONO % 10.2 % (1.0-6.0); RBC 4.2 10^6/uL (3.5-6.1); RED CELL DISTRIBUTION WIDTH 15.7 % (11.5-14.5); WHITE BLOOD COUNT 7.9 10^3/ul (4.5-11.0)
[2018-03-19 07:37] LABS: BLOOD UREA NITROGEN 23 mg/dL (7-21); CALCIUM 8.4 mg/dL (8.4-10.5); GFR AFRICAN-AMERICAN > 60; GFR NON-AFRICAN AMERICAN > 60
[2018-03-19] MEDS: Insulin Reg-MEDIUM-Coverage SC SCH ×4 (08:10→21:34)
--- NOTE | 2018-03-19 09:05 | CP.PCM.PN ---
Subjective - Date & Time of Evaluation Date of Evaluation: 03/19/18 Time of Evaluation: 07:00 - Subjective Subjective: Patient seen and evaluated bedside in the morning. Patient states wound is tender when touched or pressed on, denies any other discomfort. Patient denies any nausea or vomiting. Patient aware of plan for surgical debridement on pending cardio clearance. Objective - Vital Signs/Intake and Output Vital Signs (last 24 hours): Temp Pulse Resp BP Pulse Ox 98.2 F 79 20 135/87 99 03/19/18 08:42 03/19/18 08:42 03/19/18 08:42 03/19/18 08:42 03/19/18 08:42 Intake and Output: 03/19/18 03/19/18 06:59 18:59 Intake Total 540 Output Total 2 Balance 538 - Medications Medications: Current Medications Alprazolam (Xanax) 0.25 mg PO PRN PRN; Protocol PRN Reason: Anxiety Stop: 03/25/18 13:46 Last Admin: 03/18/18 23:50 Dose: 0.25 mg Carvedilol (Coreg) 3.125 mg PO BID [facility] Last Admin: 03/18/18 18:20 Dose: 3.125 mg Enoxaparin Sodium (Lovenox) 40 mg SC Q12H [facility] Last Admin: 03/19/18 01:59 Dose: 40 mg Ferrous Sulfate (Feosol) 324 mg PO BID [facility] Last Admin: 03/18/18 18:20 Dose: 324 mg Furosemide (Lasix) 40 mg PO DAILY [facility] Last Admin: 03/18/18 15:01 Dose: 40 mg Hydrochlorothiazide (Microzide) 12.5 mg PO DAILY [facility] Insulin Human Regular (Humulin R Med) 0 units SC [facility] PRN Reason: Protocol Last Admin: 03/18/18 22:20 Dose: Not Given Lisinopril (Zestril) 10 mg PO DAILY [facility] Non-Formulary Medication (Fluticasone Furoate [Arnuity Ellipta]) 1 puff IH 0700 [facility] Non-Formulary Medication (Folic Acid [Fa-8]) 0.8 mg PO DAILY [facility] Non-Formulary Medication (Umeclidinium Brm/Vilanterol Tr [Anoro Ellipta 62.5-25 Mcg Inh]) 1 puff IH 0700 [facility] Non-Formulary Medication (Vitamin B Complex [Super B-50 Complex]) 1 cap PO DAILY [facility] Oxycodone HCl (Oxycodone Immediate Release Tab) 5 mg PO Q6H PRN PRN Reason: Pain, severe (8-10) Last Admin: 03/18/18 18:24 Dose: 5 mg - Labs Labs: 03/19/18 07:00 03/19/18 07:00 PT 24.1 SECONDS (9.4-12.5) H 03/18/18 09:20 INR 2.06 (0.93-1.08) H 03/18/18 09:20 APTT 31.9 Seconds (25.1-36.5) 03/18/18 09:20 - Constitutional Appears: Non-toxic, No Acute Distress - Head Exam Head Exam: ATRAUMATIC, NORMAL INSPECTION, NORMOCEPHALIC - Eye Exam Eye Exam: Normal appearance - ENT Exam ENT Exam: Mucous Membranes Moist - Respiratory Exam Respiratory Exam: Clear to Ausculation Bilateral - Cardiovascular Exam Cardiovascular Exam: REGULAR RHYTHM, +S1, +S2 - GI/Abdominal Exam GI & Abdominal Exam: Soft. absent: Tenderness Additional comments: Large wound in left lower quadrant with surrounding erythema, necrotic tissue with exudate present - Neurological Exam Neurological Exam: Alert, Awake, Oriented x3 - Skin Skin Exam: Warm Assessment and Plan - Assessment and Plan (Free Text) Assessment: 57 y/o F with large non-healing wound with surrounding erythema present in the LLQ Plan: Plan for debridement in the OR Abx as per ID, one dose ancef given monitor INR continue local wound care with Dakins & wet to dry dressings BID discussed with Dr. Hassan further recommendations as per Dr. Hassan
[2018-03-19] MEDS: FOLIC ACID 0.8 MG PO SCH (09:31)
[2018-03-19] MEDS: Non Formulary Medication (Fluticasone Furoate [Arnuity Ellipta] 1 PUFF) IH SCH (09:52)
[2018-03-19] MEDS ORDERED: Non Formulary Medication (Vitamin B Complex [Super B-50 Complex] 1 CAP) PO SCH (10:00)
[2018-03-19] MEDS ORDERED: FOLIC ACID 0.8 MG PO SCH (10:00)
[2018-03-19] MEDS ORDERED: ceFAZolin 1 gm in NS 1 GM/100 ML BAG IVPB STA (10:38)
--- NOTE | 2018-03-19 13:39 | HP ---
HISTORY OF PRESENT ILLNESS: The patient is a 57 year old woman with multiple medical comorbidities including morbid obesity and a chronic, nonhealing stage II pressure ulcer to the left lower quadrant of the abdominal wall s/p OR debridement s/p wound vac who was admitted for electively scheduled surgical debridement. The patient has been closely followed by Dr. Hassan and the [facility] and has demonstrated some progress with her LLQ abdominal wall wound however given its persistence she was advised that she may likely require further debridement and surgical attempt at wound closure. She denies fevers, chills, rigors, purulent discharge, malaise, chest pain or palpitations. PAST MEDICAL HISTORY: As per HPI, also dilated cardiomyopathy, hypertension, non-insulin dependent diabetes mellitus, iron deficiency anemia, anxiety disorder and history of provoked DVT/PE s/p IVC filter placement. PAST SURGICAL HISTORY: As per HPI, also IVC filter placement. ALLERGIES: NKDA. MEDICATIONS: Coumadin 4 mg p.o. daily, Carvedilol 3.125 mg p.o. b.i.d., Lasix 40 mg p.o. daily, Lisinopril/HCTZ 10/12.5 mg p.o. daily, Xanax 0.25 mg p.o. daily, Percocet 5/325 mg 1 tab p.o. q. 6 hours p.r.n. pain and Feosol 324 mg p.o. b.i.d. FAMILY HISTORY: Noncontributory. SOCIAL HISTORY: No history of toxic habits. REVIEW OF SYSTEMS: Negative for fevers, chills, rigors, chest pain, palpitations, dyspnea or exertional dyspnea. PHYSICAL EXAMINATION: VITAL SIGNS: Temperature 98.2, pulse 84, blood pressure 125/82, respiratory rate 19, oxygen saturation 97% on room air. GENERAL: Morbidly obese woman lying in bed in no apparent distress. HEENT: PERRL. EOMI. No scleral icterus. No conjunctival pallor. NECK: No JVD. LUNGS: Clear to auscultation. CARDIOVASCULAR: Regular rate and rhythm. Normal S1 and S2. ABDOMEN: Obese. Normoactive bowel sounds. Soft, nontender, nondistended. Wound VAC in place. EXTREMITIES: Trace lower extremity edema bilaterally. NEUROLOGIC: Awake, alert and oriented x 3. No focal motor deficits. LABORATORY DATA: WBC 7.9, hemoglobin 12, hematocrit 36, platelets 244. Chemistry reviewed and unremarkable. INR 2.06. ASSESSMENT: The patient is a 57 year old woman with multiple medical comorbidities including morbid obesity and a chronic nonhealing abdominal wall wound who presented for electively scheduled surgical intervention of her abdominal wound. PLAN: 1. Cellulitis of the abdominal wall with stage II pressure ulcer s/p OR debridement s/p wound VAC. The patient is tentatively scheduled for a repeat operative debridement on 03/21/2018. We will hold Coumadin and the patient has been started on therapeutic Lovenox. The patient has been seen by Dr. Nguyễn of Cardiology for pre-op risk assessment. Given her underlying cardiac function she is certainly at an increased risk however at present she is medically optimized for OR and may proceed without any further cardiac workup. 2. Dilated cardiomyopathy with an EF of 30%. Continue current medications. As above Coumadin remains on hold in anticipation of OR and the patient remains on therapeutic Lovenox. 3. 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 Continue with therapeutic Lovenox as above. 4. Hypertension. Blood pressure remains controlled. Continue with current medications. 5. Iron deficiency anemia. Continue Feosol 324 mg p.o. b.i.d. 6. NIDDM. Continue to monitor fingersticks before every meal and at bedtime and continue medium dose insulin sliding scale for coverage. 7. Anxiety disorder. Continue Xanax 0.25 mg p.o. daily. 8. Morbid daily. 9. Prophylaxis. GI prophylaxis is not indicated as the patient is eating. DVT prophylaxis is not indicated as the patient remains on Lovenox. CODE STATUS: Full code. Jorge Nguyen MD ISMAEL
[2018-03-19] MEDS: Non Formulary Medication (Vitamin B Complex [Super B-50 Complex] 1 CAP) PO SCH (14:00)
--- NOTE | 2018-03-19 15:25 | PN ---
DATE: 03/19/2018 CARDIOLOGY FOLLOWUP SUBJECTIVE: The patient is comfortable in a chair. No shortness of breath noted. PHYSICAL EXAMINATION: VITAL SIGNS: Blood pressure is 135/87, heart rate is in the 70s. NECK: Negative JVD. LUNGS: Without rales. HEART: Reveals S1, S2. EXTREMITIES: Without edema. LABORATORY DATA: Hemoglobin is 11.9. Chemistries: Glucose is 154. INR is 2.06. IMPRESSION: 1. Dilated cardiomyopathy. 2. History of pulmonary embolism. 3. Abdominal wound. 4. History of diabetes mellitus. PLAN: Given these findings, the patient is hemodynamically stable. She is on HIRAM inhibitor as well as subcu Lovenox. The patient is for the operating room for wound care. Florian Nguyễn MD
[2018-03-19] MEDS: oxyCODONE 5 mg Immediate Release Tab PO PRN (17:46)
[2018-03-19] MEDS: Meropenem IV 1 gm in NS 50 ML IVPB SCH (23:22)
[2018-03-20] MEDS: Enoxaparin 40 mg Syringe SC SCH ×3 (02:07→22:07)
[2018-03-20 06:46] LABS: BASO # 0.03 K/mm3 (0.0-2.0); BASO % 0.4 % (0.0-3.0); EOS # 0.2 (0.0-0.7); EOS % 2.6 % (1.5-5.0); GRAN # 5.37 (1.4-6.5); GRAN % 68.7 % (50.0-68.0); HEMOGLOBIN 12.2 g/dL (12.0-16.0); LYMPH # 1.4 (1.2-3.4); LYMPH % 17.4 % (22.0-35.0); MEAN CORPUSCULAR HEMOGLOBIN 28.9 pg (25.0-35.0); MEAN CORPUSCULAR HGB CONC 33.6 g/dl (31.0-37.0); MEAN PLATELET VOLUME 9.8 fl (7.0-11.0); MONO # 0.9 (0.1-0.6); MONO % 10.9 % (1.0-6.0); RBC 4.22 10^6/uL (3.5-6.1); RED CELL DISTRIBUTION WIDTH 15.6 % (11.5-14.5); WHITE BLOOD COUNT 7.8 10^3/ul (4.5-11.0)
[2018-03-20 07:13] LABS: INR 1.59 (0.93-1.08); PROTHROMBIN TIME 18.5 SECONDS (9.4-12.5)
[2018-03-20 07:42] LABS: BLOOD UREA NITROGEN 28 mg/dL (7-21); CALCIUM 8.5 mg/dL (8.4-10.5); GFR AFRICAN-AMERICAN > 60; GFR NON-AFRICAN AMERICAN > 60
--- NOTE | 2018-03-20 08:35 | CP.PCM.PN ---
Subjective - Date & Time of Evaluation Date of Evaluation: 03/20/18 Time of Evaluation: 06:00 - Subjective Subjective: Patient seen and evaluated bedside in the morning. Patient states wound is mildly tender, denies any other discomfort. Denies any nausea or vomiting. Patient aware of plan for surgical debridement on . Objective - Vital Signs/Intake and Output Vital Signs (last 24 hours): Temp Pulse Resp BP Pulse Ox 98.7 F 83 20 126/79 96 03/19/18 17:58 03/19/18 17:58 03/19/18 17:58 03/19/18 17:58 03/19/18 17:58 Intake and Output: 03/20/18 03/20/18 06:59 18:59 Intake Total 900 Balance 900 - Medications Medications: Current Medications Alprazolam (Xanax) 0.25 mg PO PRN PRN; Protocol PRN Reason: Anxiety Stop: 03/25/18 13:46 Last Admin: 03/18/18 23:50 Dose: 0.25 mg Carvedilol (Coreg) 3.125 mg PO BID [facility] Last Admin: 03/19/18 17:46 Dose: 3.125 mg Enoxaparin Sodium (Lovenox) 40 mg SC Q12H [facility] Ferrous Sulfate (Feosol) 324 mg PO BID [facility] Last Admin: 03/19/18 17:46 Dose: 324 mg Furosemide (Lasix) 40 mg PO DAILY [facility] Last Admin: 03/19/18 09:51 Dose: 40 mg Hydrochlorothiazide (Microzide) 12.5 mg PO DAILY [facility] Last Admin: 03/19/18 09:51 Dose: 12.5 mg Meropenem (Merrem Iv 1 Gm Premix) 50 mls @ 100 mls/hr IVPB Q12 [facility] PRN Reason: Protocol Stop: 03/28/18 22:34 Last Admin: 03/19/18 23:22 Dose: 100 mls/hr Insulin Human Regular (Humulin R Med) 0 units SC ACHS [facility] PRN Reason: Protocol Last Admin: 03/19/18 21:34 Dose: Not Given Lisinopril (Zestril) 10 mg PO DAILY [facility] Last Admin: 03/19/18 09:51 Dose: 10 mg Non-Formulary Medication (Fluticasone Furoate [Arnuity Ellipta]) 1 puff IH 0700 [facility] Last Admin: 03/19/18 09:52 Dose: Not Given Non-Formulary Medication (Folic Acid [Fa-8]) 0.8 mg PO DAILY [facility] Last Admin: 03/19/18 09:31 Dose: Not Given Non-Formulary Medication (Umeclidinium Brm/Vilanterol Tr [Anoro Ellipta 62.5-25 Mcg Inh]) 1 puff IH 0700 [facility] Non-Formulary Medication (Vitamin B Complex [Super B-50 Complex]) 1 cap PO DAILY [facility] Last Admin: 03/19/18 14:00 Dose: Not Given Oxycodone HCl (Oxycodone Immediate Release Tab) 5 mg PO Q6H PRN PRN Reason: Pain, severe (8-10) Last Admin: 03/19/18 17:46 Dose: 5 mg Sodium Hypochlorite (Dakins Solution 0.5%) 500 ml TOP DAILY [facility] - Labs Labs: 03/20/18 06:00 03/20/18 06:00 PT 18.5 SECONDS (9.4-12.5) H 03/20/18 06:00 INR 1.59 (0.93-1.08) H 03/20/18 06:00 APTT 31.9 Seconds (25.1-36.5) 03/18/18 09:20 - Constitutional Appears: Non-toxic, No Acute Distress - Head Exam Head Exam: ATRAUMATIC, NORMAL INSPECTION, NORMOCEPHALIC - Eye Exam Eye Exam: EOMI - ENT Exam ENT Exam: Mucous Membranes Moist - Respiratory Exam Respiratory Exam: Clear to Ausculation Bilateral, NORMAL BREATHING PATTERN - Cardiovascular Exam Cardiovascular Exam: REGULAR RHYTHM - GI/Abdominal Exam GI & Abdominal Exam: Soft, Tenderness Additional comments: Large wound in left lower quadrant with surrounding erythema, necrotic tissue with exudate present - Extremities Exam Extremities Exam: Normal Inspection - Neurological Exam Neurological Exam: Alert, Awake, Oriented x3 - Skin Skin Exam: Dry, Warm Assessment and Plan - Assessment and Plan (Free Text) Assessment: 57 y/o F with large non-healing wound with surrounding erythema present in the LLQ Plan: Plan for debridement in the OR Abx as per ID monitor INR NPO after midnight continue local wound care with Dakins & wet to wet dressings discussed with Dr. Hassan further recommendations as per Dr. Hassan
[2018-03-20] MEDS: Insulin Reg-MEDIUM-Coverage SC SCH ×4 (08:40→22:04)
[2018-03-20] MEDS: Meropenem IV 1 gm in NS 50 ML IVPB SCH ×2 (09:09→22:07)
[2018-03-20] MEDS: oxyCODONE 5 mg Immediate Release Tab PO PRN ×2 (09:09→22:07)
[2018-03-20] MEDS: Non Formulary Medication (Fluticasone Furoate [Arnuity Ellipta] 1 PUFF) IH SCH (09:12)
[2018-03-20] MEDS: FOLIC ACID 0.8 MG PO SCH (09:12)
[2018-03-20] MEDS: Non Formulary Medication (Umeclidinium Brm/Vilanterol Tr [Anoro Ellipta 62.5-25 Mcg Inh] 1 IH SCH (09:13)
[2018-03-20] MEDS: Non Formulary Medication (Vitamin B Complex [Super B-50 Complex] 1 CAP) PO SCH (09:14)
[2018-03-20] MEDS: Dakin's Topical 0.5%-Full Strength (480 ml) TOP SCH (09:36)
--- NOTE | 2018-03-20 19:17 | CON ---
DATE: 03/20/2018 LOCATION: The patient seen in room 369, bed 2. CHIEF COMPLAINT: Abdominal wound infection times several days. HISTORY OF PRESENT ILLNESS: This is a 57-year-old female with morbid obesity, BMI of 43, hypertension, chronic obstructive lung disease, congestive heart failure, pulmonary emboli. The patient has dilated cardiomyopathy. Has had this abdominal wound infection chronically, has had debridement, had a wound VAC, and now returns with infection of the same site. The patient states she has had low-grade fevers and there is foul odor from the wound. No chest pain, shortness of breath, or cough. No headaches or blurred vision. REVIEW OF SYSTEMS: A 12-point review of systems is performed. PAST MEDICAL HISTORY: Significant for hypertension, chronic obstructive lung disease, congestive heart failure, pulmonary emboli, dilated cardiomyopathy, morbid obesity with BMI of 43, and a chronic abdominal wound infection. PAST SURGICAL HISTORY: Significant for eye surgery and recurrent abdominal wound debridement. ALLERGIES: THE PATIENT HAS NO KNOWN ALLERGIES. MEDICATIONS AT HOME: Include the patient to be on Coumadin, oxycodone, vitamins, lisinopril, hydrochlorothiazide, iron, Lasix, Xanax, and Coreg. PHYSICAL EXAMINATION: GENERAL: She is in bed, answering questions appropriately, awake and alert on exam. VITAL SIGNS: Temperature of 98; heart rate of 83, it was up to 95; and respiratory rate of 20 with blood pressure of 126/70 with 96% saturation on room air. HEENT: Unremarkable. NECK: Supple. LUNGS: Decreased breath sounds. HEART: Normal S1, S2. ABDOMEN: Soft, nontender. The wound is foul odorous, necrotic tissue with erythema and discharge. LABORATORY EXAMINATION: Reveals a white count of 7.8, hemoglobin of 12, and platelets of 251. There is 68% granulocytosis. Coagulation is noted. Chemistries reveal a BUN of 23, creatinine of 0.6. Random glucose is 154. Microbiology reveals the blood cultures are no growth. There is E. coli from the wound cultures from 03/18, is pansensitive E. Coli with heavy growth of E. coli. The patient had a chest x-ray which was reported to be with bronchovascular markings and questionable left effusion, read by Dr. Macho Meyer. Dr. Florian Nguyễn's note is reviewed from yesterday. Dr. Jorge Nguyen's note and history and physical examination reviewed from yesterday. ASSESSMENT AND PLAN: This is a 57-year-old female with morbid obesity, body mass index of 43, chronic obstructive lung disease, dilated cardiomyopathy, congestive heart failure, pulmonary emboli with a chronic abdominal wound infection, now presenting with; 1. Cellulitis of abdominal wall with stage II pressure ulcers with Escherichia coli, foul odorous, necrotic tissue in a patient who is diabetic and with dilated cardiomyopathy, anxiety, hypertension, pulmonary embolism, and history of deep venous thrombosis. We will treat the patient with meropenem. Pending the OR debridement. Deep tissue cultures should consider again pyoderma gangrenosum pathology and should also have deep tissue culture sent for AFB smears and cultures, fungal smears and cultures in addition to pathology for pyoderma gangrenosum because of the recurrent abdominal wound infection in this patient. We will follow with you. Brock Gambino MD
[2018-03-20] MEDS ORDERED: Sodium Chloride 0.9% 1,000 ML IV SCH (20:30)
[2018-03-21] MEDS: Insulin Reg-MEDIUM-Coverage SC SCH ×4 (07:10→23:17)
[2018-03-21] MEDS: Non Formulary Medication (Umeclidinium Brm/Vilanterol Tr [Anoro Ellipta 62.5-25 Mcg Inh] 1 IH SCH (07:10)
[2018-03-21] MEDS: Non Formulary Medication (Fluticasone Furoate [Arnuity Ellipta] 1 PUFF) IH SCH (07:10)
[2018-03-21 07:11] LABS: BASO # 0.02 K/mm3 (0.0-2.0); BASO % 0.3 % (0.0-3.0); EOS # 0.2 (0.0-0.7); EOS % 3.2 % (1.5-5.0); GRAN # 4.65 (1.4-6.5); GRAN % 67.1 % (50.0-68.0); LYMPH # 1.2 (1.2-3.4); LYMPH % 17.9 % (22.0-35.0); MEAN CELL VOLUME 86.1 fl (80.0-105.0); MEAN CORPUSCULAR HEMOGLOBIN 28.2 pg (25.0-35.0); MEAN CORPUSCULAR HGB CONC 32.8 g/dl (31.0-37.0); MEAN PLATELET VOLUME 9.5 fl (7.0-11.0); MONO # 0.8 (0.1-0.6); MONO % 11.5 % (1.0-6.0); RBC 4.25 10^6/uL (3.5-6.1); RED CELL DISTRIBUTION WIDTH 15.5 % (11.5-14.5); WHITE BLOOD COUNT 6.9 10^3/ul (4.5-11.0)
[2018-03-21 07:23] LABS: BLOOD UREA NITROGEN 31 mg/dL (7-21); CALCIUM 8.4 mg/dL (8.4-10.5); GFR AFRICAN-AMERICAN > 60; GFR NON-AFRICAN AMERICAN > 60
[2018-03-21 07:35] LABS: INR 1.45 (0.93-1.08); PROTHROMBIN TIME 16.8 SECONDS (9.4-12.5)
[2018-03-21] MEDS: Meropenem IV 1 gm in NS 50 ML IVPB SCH ×2 (09:41→23:11)
[2018-03-21] MEDS: FOLIC ACID 0.8 MG PO SCH (09:43)
[2018-03-21] MEDS: Dakin's Topical 0.5%-Full Strength (480 ml) TOP SCH (09:43)
[2018-03-21] MEDS: Non Formulary Medication (Vitamin B Complex [Super B-50 Complex] 1 CAP) PO SCH (09:43)
[2018-03-21] MEDS ORDERED: HYDROmorphone 0.5 mg/0.5 ml ISec IVP PRN (10:12)
[2018-03-21] MEDS ORDERED: Lactated Ringer's 1,000 ML IV SCH (10:15)
[2018-03-21] MEDS ORDERED: Bupivacaine 0.5% Inj(30mL) ONE (10:42)
[2018-03-21] MEDS ORDERED: Etomidate 20 mg/10ml Inj IV ONE (11:08)
[2018-03-21] MEDS ORDERED: Midazolam 2 MG/2 ML VIAL ONE (11:09)
[2018-03-21] MEDS ORDERED: Methylene Blue 10 mg/mL(10ml) IV ONE (11:52)
[2018-03-21] MEDS ORDERED: Propofol 10 mg/ml Inj (20 ML) ONE (11:53)
--- NOTE | 2018-03-21 11:56 | PN ---
DATE: 03/21/2018 CARDIOLOGY FOLLOWUP SUBJECTIVE: The patient is scheduled for a surgery on her abdominal wall today. The patient is without shortness of breath, without chest pain. PHYSICAL EXAMINATION: VITAL SIGNS: Blood pressure is 130/85, heart rate is in the 70s. NECK: Negative JVD. LUNGS: Without rales. HEART: Reveals S1, S2. EXTREMITIES: Without edema. LABORATORY DATA: Hemoglobin is 12. Chemistries: Glucose is 156. IMPRESSION: 1. The patient is for surgery of her abdominal wall wound. 2. History of severely dilated left ventricle with an EF of 20%. 3. History of bilateral pulmonary embolism. 4. Diabetes mellitus. PLAN: Given these findings, the patient is at increased risk of anesthesia given her poor LV function. However, the patient's heart function is at its optimum. I would place her back on anticoagulation as soon as possible after surgery given her history of bilateral pulmonary embolism. Florian Nguyễn MD
--- NOTE | 2018-03-21 12:55 | PCM.SURG1 ---
Surgeon's Initial Post Op Note - Surgeon's Notes Surgeon: Dr. Hassan Laboratory Technology Teacher: Mary Brar, PGY2, Isamar Zaldivar PGY 1, Giovanny Connelly, OMS3 Type of Anesthesia: IV Sedation Anesthesia Administered By: Dr. 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
[2018-03-21] MEDS ORDERED: HYDROmorphone 0.5 mg/0.5 ml ISec ONE ×2 (13:11→13:23)
--- NOTE | 2018-03-21 14:00 | PN ---
SUBJECTIVE: The patient is seen and examined at bedside on the general medical hinkle. No acute events overnight. She remains afebrile and hemodynamically stable. Today she is pending OR debridement of her chronic non-healing stage II pressure ulcer with surrounding cellulitis to the left lower abdominal quadrant. Overall she feels well and denies any complaints. OBJECTIVE: VITAL SIGNS: Temperature 97.6, pulse 80, blood pressure 120/73, respiratory rate 18, oxygen saturation 98% on room air. GENERAL: Morbidly obese woman, lying in bed, in no apparent distress. HEENT: PERRL, EOMI. No scleral icterus. No conjunctival pallor. NECK: No JVD. LUNGS: Clear to auscultation. CARDIOVASCULAR: Regular rate and rhythm. Normal S1 and S2. ABDOMEN: Obese. Normoactive bowel sounds. Soft, nontender, nondistended. Surgical dressing in place. EXTREMITIES: Trace lower extremity edema bilaterally. NEUROLOGIC: Awake, alert and oriented x 3. No focal motor deficits. LABORATORY DATA: CBC reviewed and unremarkable. CMP reviewed and unremarkable. INR 1.45. ASSESSMENT: The patient is a 57 year old woman with multiple medical comorbidities including morbid obesity and a chronic non-healing abdominal wall wound who presented for electively scheduled surgical intervention of her abdominal wall wound. PLAN: 1. Cellulitis of the abdominal wall with stage II pressure ulcer. She is scheduled this morning for repeat operative debridement. The patient's anticoagulation remains on hold. The patient is at increased risk given her underlying cardiac comorbidities, however, at present, she is medically optimized for the OR and may proceed with any further cardiac workup. Input from Dr. Nguyễn of Cardiology greatly appreciated. 2. Dilated cardiomyopathy with an EF of 30%. Continue current medications. We will resume oral anticoagulation when okay from the surgical standpoint. 3. 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 As above, we will resume oral anticoagulation when okay from the surgical standpoint. 4. Hypertension, blood pressure controlled. Continue with current medications. 5. Iron-deficiency anemia. H and H remains stable. Continue Feosol 324 mg p.o. b.i.d. 6. NIDDM, continue with medium-dose dosing for sliding scale for coverage. 7. Anxiety disorder. Continue Xanax 0.25 mg p.o. daily. 8. Morbid daily. 9. COPD. Continue with supplemental oxygen and bronchodilators as needed. 10. Prophylaxis. GI prophylaxis is not indicated as the patient is eating. Continue with Lovenox for DVT prophylaxis. CODE STATUS: Full code. Jorge Nguyen MD MTDDarío
[2018-03-21] MEDS: oxyCODONE 5 mg Immediate Release Tab PO PRN (17:24)
[2018-03-21] MEDS: Vancomycin 1gm in NS 250ml 1 GM/250 ML BAG IVPB SCH (19:14)
--- NOTE | 2018-03-21 19:28 | PN ---
DATE: 03/21/2018 SUBJECTIVE: Rivkaeliot Pierce seen. The left abdominal wall abscess collection was debrided today down to viable beautiful tissue and a wound VAC obtained. It was treated with antibiotics and probably in about a week, reexamine the area. If the infection is under control, I will be willing to do a wide resection and hopefully primary closure. Right now, it is too infected to attempt that. We will continue with antibiotics and wound VAC. We will see the wound in about 3 days. Scott Hassan MD
--- NOTE | 2018-03-21 23:01 | PN ---
DATE: 03/21/2018 SUBJECTIVE: The patient is in bed, in no acute distress, and seen earlier this morning in 369, bed 2. PHYSICAL EXAMINATION: VITAL SIGNS: Temperature is 98, blood pressure is 110/70, respiratory rate of 16. HEENT: Unremarkable. NECK: Supple. LUNGS: Decreased breath sounds. HEART: Normal S1 and S2. ABDOMEN: Soft and nontender. LABORATORY EXAMINATION: Reveals the patient's white count of 6.9, hemoglobin of 12. Chemistries are noted. Cultures reveal the abdominal culture has E. coli and corynebacterium. The E. coli is pansensitive and the corynebacterium in the further study. Blood cultures are negative. ASSESSMENT AND PLAN: A 57-year-old female with morbid obesity with a body mass index of 41, hypertension, chronic obstructive lung disease, congestive heart failure, pulmonary emboli, and dilated cardiomyopathy, who was admitted with cellulitis of the abdominal wall with stage II pressure ulcers with pansensitive Escherichia coli and corynebacterium. The patient is for the OR today. I have asked for routine cultures, Gram stain and cultures and pathology, AFB smears and cultures, fungal smears and cultures, and workup for pyoderma gangrenosum. Currently day #2 of meropenem and vancomycin because of the corynebacterium. We will follow closely with you. The patient is scheduled for the OR for debridement today as of this morning. Brock Gambino MD
[2018-03-21] MEDS: Morphine 4 mg/ml ISec IVP PRN (23:11)
[2018-03-22] MEDS: Morphine 4 mg/ml ISec IVP PRN ×3 (06:05→22:12)
[2018-03-22] MEDS: Vancomycin 1gm in NS 250ml 1 GM/250 ML BAG IVPB SCH ×2 (06:06→18:10)
[2018-03-22 06:49] LABS: BASO # 0.01 K/mm3 (0.0-2.0); BASO % 0.1 % (0.0-3.0); EOS # 0.3 (0.0-0.7); EOS % 3.4 % (1.5-5.0); GRAN # 5.26 (1.4-6.5); GRAN % 71.7 % (50.0-68.0); HEMOGLOBIN 11.7 g/dL (12.0-16.0); LYMPH % 14.1 % (22.0-35.0); MEAN CELL VOLUME 87.3 fl (80.0-105.0); MEAN CORPUSCULAR HEMOGLOBIN 28.5 pg (25.0-35.0); MEAN CORPUSCULAR HGB CONC 32.6 g/dl (31.0-37.0); MONO # 0.8 (0.1-0.6); MONO % 10.7 % (1.0-6.0); RBC 4.11 10^6/uL (3.5-6.1); RED CELL DISTRIBUTION WIDTH 15.8 % (11.5-14.5); WHITE BLOOD COUNT 7.4 10^3/ul (4.5-11.0)
[2018-03-22] MEDS: Insulin Reg-MEDIUM-Coverage SC SCH ×4 (08:07→22:04)
--- NOTE | 2018-03-22 08:25 | CP.PCM.PN ---
Subjective - Date & Time of Evaluation Date of Evaluation: 03/22/18 Time of Evaluation: 08:21 - Subjective Subjective: Patient seen and evaluated bedside in AM. No acute issues overnight. Patient states some tenderness around wound edges. No fever, chills, abdominal pain. Patient denies any other complaints. Objective - Vital Signs/Intake and Output Vital Signs (last 24 hours): Temp Pulse Resp BP Pulse Ox 99.5 F 84 20 127/80 94 L 03/22/18 08:09 03/22/18 08:09 03/22/18 08:09 03/22/18 08:09 03/22/18 08:09 Intake and Output: 03/22/18 03/22/18 06:59 18:59 Intake Total 360 Output Total 75 Balance 285 - Medications Medications: Current Medications Alprazolam (Xanax) 0.25 mg PO PRN PRN; Protocol PRN Reason: Anxiety Stop: 03/25/18 13:46 Last Admin: 03/20/18 23:57 Dose: 0.25 mg Carvedilol (Coreg) 3.125 mg PO BID [facility] Last Admin: 03/21/18 17:20 Dose: 3.125 mg Docusate Sodium (Colace) 100 mg PO BID [facility] Last Admin: 03/21/18 17:19 Dose: 100 mg Enoxaparin Sodium (Lovenox) 40 mg SC Q12H [facility] Last Admin: 03/20/18 22:07 Dose: 40 mg Ferrous Sulfate (Feosol) 324 mg PO BID [facility] Last Admin: 03/21/18 17:19 Dose: 324 mg Furosemide (Lasix) 40 mg PO DAILY [facility] Last Admin: 03/21/18 09:42 Dose: Not Given Hydrochlorothiazide (Microzide) 12.5 mg PO DAILY [facility] Last Admin: 03/21/18 09:42 Dose: 12.5 mg Meropenem (Merrem Iv 1 Gm Premix) 50 mls @ 100 mls/hr IVPB Q12 [facility] PRN Reason: Protocol Stop: 03/28/18 22:34 Last Admin: 03/21/18 23:11 Dose: 100 mls/hr Vancomycin HCl (Vancomycin 1gm) 1 gm in 250 mls @ 167 mls/hr IVPB Q12H [facility] PRN Reason: Protocol Stop: 03/30/18 19:01 Last Admin: 03/22/18 06:06 Dose: 167 mls/hr Insulin Human Regular (Humulin R Med) 0 units SC ACHS [facility] PRN Reason: Protocol Last Admin: 03/22/18 08:07 Dose: Not Given Lisinopril (Zestril) 10 mg PO DAILY [facility] Last Admin: 03/21/18 09:42 Dose: 10 mg Morphine Sulfate (Morphine) 4 mg IVP Q4H PRN PRN Reason: Pain, severe (8-10) Last Admin: 03/22/18 06:05 Dose: 4 mg Non-Formulary Medication (Fluticasone Furoate [Arnuity Ellipta]) 1 puff IH 0700 [facility] Last Admin: 03/21/18 07:10 Dose: Not Given Non-Formulary Medication (Folic Acid [Fa-8]) 0.8 mg PO DAILY [facility] Last Admin: 03/21/18 09:43 Dose: Not Given Non-Formulary Medication (Umeclidinium Brm/Vilanterol Tr [Anoro Ellipta 62.5-25 Mcg Inh]) 1 puff IH 0700 [facility] Last Admin: 03/21/18 07:10 Dose: Not Given Non-Formulary Medication (Vitamin B Complex [Super B-50 Complex]) 1 cap PO DAILY [facility] Last Admin: 03/21/18 09:43 Dose: Not Given Ondansetron HCl (Zofran Inj) 4 mg IVP ONCE PRN PRN Reason: Nausea/Vomiting Oxycodone HCl (Oxycodone Immediate Release Tab) 5 mg PO Q6H PRN PRN Reason: Pain, moderate (4-7) Last Admin: 03/21/18 17:24 Dose: 5 mg Sodium Hypochlorite (Dakins Solution 0.5%) 500 ml TOP DAILY [facility] Last Admin: 03/21/18 09:43 Dose: Not Given - Labs Labs: 03/22/18 06:00 03/21/18 07:00 PT 16.8 SECONDS (9.4-12.5) H 03/21/18 07:00 INR 1.45 (0.93-1.08) H 03/21/18 07:00 APTT 29.0 Seconds (25.1-36.5) 03/21/18 07:00 - Constitutional Appears: Non-toxic, No Acute Distress - Head Exam Head Exam: ATRAUMATIC, NORMAL INSPECTION, NORMOCEPHALIC - Eye Exam Eye Exam: EOMI, Normal appearance - ENT Exam ENT Exam: Mucous Membranes Moist - Neck Exam Neck Exam: Full ROM - Respiratory Exam Respiratory Exam: Clear to Ausculation Bilateral, NORMAL BREATHING PATTERN - Cardiovascular Exam Cardiovascular Exam: REGULAR RHYTHM - GI/Abdominal Exam GI & Abdominal Exam: Soft Additional comments: wound vac in place, slight tenderness around wound edges - Extremities Exam Extremities Exam: Pedal Edema - Neurological Exam Neurological Exam: Alert, Awake, Oriented x3 - Skin Skin Exam: Normal Color, Warm Assessment and Plan - Assessment and Plan (Free Text) Assessment: 57 y/o F with large non-healing wound status post wound vac placement. POD #1 Plan: -Wound vac change on Sunday -reasses wound for further debridement -continue abx -discussed with Dr. Hassan -Further recommendations as per Dr. Hassan
[2018-03-22 08:48] LABS: BLOOD UREA NITROGEN 29 mg/dL (7-21); CALCIUM 8.5 mg/dL (8.4-10.5); GFR AFRICAN-AMERICAN > 60; GFR NON-AFRICAN AMERICAN > 60
[2018-03-22] MEDS: Dakin's Topical 0.5%-Full Strength (480 ml) TOP SCH (10:07)
[2018-03-22] MEDS: Non Formulary Medication (Fluticasone Furoate [Arnuity Ellipta] 1 PUFF) IH SCH (10:07)
[2018-03-22] MEDS: FOLIC ACID 0.8 MG PO SCH (10:07)
[2018-03-22] MEDS: Non Formulary Medication (Vitamin B Complex [Super B-50 Complex] 1 CAP) PO SCH (10:08)
[2018-03-22] MEDS: Meropenem IV 1 gm in NS 50 ML IVPB SCH ×2 (10:08→22:04)
[2018-03-22] MEDS: Non Formulary Medication (Umeclidinium Brm/Vilanterol Tr [Anoro Ellipta 62.5-25 Mcg Inh] 1 IH SCH (10:08)
[2018-03-22] MEDS: Enoxaparin 40 mg Syringe SC SCH ×2 (10:09→22:04)
--- NOTE | 2018-03-22 12:50 | PN ---
DATE: 03/22/2018 LOCATION: The patient is in room 369, bed 2. SUBJECTIVE: She is sitting up in bed, eating breakfast. She has no complaints. There have been no acute events overnight. PHYSICAL EXAMINATION: VITAL SIGNS: Temperature of 99.5, pulse rate of 84, blood pressure 127/80, respiratory rate of 20 with an O2 saturation of 94% on room air. HEENT: PERRLA, EOMI. There is no icterus. NECK: Supple with full range of motion. No adenopathy is present. No bruits are appreciated. LUNGS: Clear to auscultation and percussion bilaterally. HEART: With a regular rate and rhythm. ABDOMEN: Benign. It is wrapped infraumbilically. EXTREMITIES: Show no deformities. NEUROLOGIC: There are no focal motor deficits. LABORATORY DATA: CBC: Hemoglobin and hematocrit are 11.7 and 35.9 respectively. The INR is 1.45. Chemistry is normal with the exception of a random glucose of 153 and a BUN of 29. IMPRESSION: At this time, 1. Status post debridement of a wound on the anterior abdominal wall. 2. Congestive heart failure. PLAN: Continue current regimen. Obi Nguyen MD
--- NOTE | 2018-03-22 13:48 | PN ---
DATE: 03/22/2018 CARDIOLOGY FOLLOWUP SUBJECTIVE: The patient tolerated surgery well. OBJECTIVE: VITAL SIGNS: Blood pressure is 127/80, heart rate is in the 80s. NECK: Negative JVD. LUNGS: Without rales. HEART: S1, S2. EXTREMITIES: Without edema. DATA: Hemoglobin is 11.7. Chemistries: BUN and creatinine unremarkable. IMPRESSION: 1. Status post surgery for her abdominal wound. 2. Severe dilated cardiomyopathy. 3. History of pulmonary embolism. 4. Hypertension. Given these findings, we will discuss with Surgery about restarting full anticoagulation once it is safe to do post surgery. Florian Nguyễn MD
--- NOTE | 2018-03-23 00:23 | PN ---
DATE: 03/22/2018 SUBJECTIVE: The patient is in bed, in no acute distress, seen early this morning in room 369, bed 2. No fevers and chills. PHYSICAL EXAMINATION: VITAL SIGNS: On exam, temperature is 98, blood pressure is 120/80, respiratory rate of 18. HEENT: Examination of HEENT is unremarkable. NECK: Supple. LUNGS: Have decreased breath sounds. HEART: Normal S1, S2. ABDOMEN: Examination is soft, nontender. LABORATORY DATA: Laboratory examination reveals a white count of 7.4, hemoglobin 11. Chemistries are noted. Microbiology reveals E. Coli and gram-positive cocci. Abdominal cultures. ASSESSMENT AND PLAN: A 57-year-old female with morbid obesity, body mass index of 41, hypertension, chronic obstructive lung disease, congestive heart failure, pulmonary emboli, dilated cardiomyopathy, admitted with cellulitis and abdominal wall stage II pressure ulcer and history of pansensitive Escherichia. Coli and corynebacterium. We will check on the final culture results. Currently, day #3 of meropenem and vancomycin. Follow the creatinine closely. She has a vanco trough level prior to the fourth dose. Brock Gambino MD
[2018-03-23] MEDS: Vancomycin 1gm in NS 250ml 1 GM/250 ML BAG IVPB SCH (06:09)
[2018-03-23] MEDS: Insulin Reg-MEDIUM-Coverage SC SCH ×4 (07:39→21:44)
[2018-03-23] MEDS: Non Formulary Medication (Fluticasone Furoate [Arnuity Ellipta] 1 PUFF) IH SCH (07:39)
--- NOTE | 2018-03-23 08:29 | CP.PCM.PN ---
Subjective - Date & Time of Evaluation Date of Evaluation: 03/23/18 Time of Evaluation: 07:00 - Subjective Subjective: GENERAL SURGERY PROGRESS NOTE FOR DR. WHEAT Patient seen and examined at bedside. Pt OOB to chair. Pain is well controlled. Pt is tolerating diet, denies nausea or vomiting. Unsure when her last BM was. Objective - Vital Signs/Intake and Output Vital Signs (last 24 hours): Temp Pulse Resp BP Pulse Ox 98.4 F 76 19 115/69 96 03/22/18 18:00 03/22/18 18:00 03/22/18 18:00 03/22/18 18:00 03/22/18 18:00 Intake and Output: 03/23/18 03/23/18 06:59 18:59 Intake Total 40 Balance 40 - Medications Medications: Current Medications Alprazolam (Xanax) 0.25 mg PO PRN PRN; Protocol PRN Reason: Anxiety Stop: 03/25/18 13:46 Last Admin: 03/20/18 23:57 Dose: 0.25 mg Carvedilol (Coreg) 3.125 mg PO BID [facility] Last Admin: 03/22/18 17:42 Dose: 3.125 mg Docusate Sodium (Colace) 100 mg PO BID [facility] Last Admin: 03/22/18 17:42 Dose: 100 mg Enoxaparin Sodium (Lovenox) 40 mg SC Q12H [facility] Last Admin: 03/22/18 22:04 Dose: 40 mg Ferrous Sulfate (Feosol) 324 mg PO BID [facility] Last Admin: 03/22/18 17:42 Dose: 324 mg Furosemide (Lasix) 40 mg PO DAILY [facility] Last Admin: 03/22/18 10:05 Dose: 40 mg Hydrochlorothiazide (Microzide) 12.5 mg PO DAILY [facility] Last Admin: 03/22/18 10:06 Dose: 12.5 mg Meropenem (Merrem Iv 1 Gm Premix) 50 mls @ 100 mls/hr IVPB Q12 [facility] PRN Reason: Protocol Stop: 03/28/18 22:34 Last Admin: 03/22/18 22:04 Dose: 100 mls/hr Vancomycin HCl (Vancomycin 1gm) 1 gm in 250 mls @ 167 mls/hr IVPB Q12H [facility] PRN Reason: Protocol Stop: 03/30/18 19:01 Last Admin: 03/23/18 06:09 Dose: 167 mls/hr Insulin Human Regular (Humulin R Med) 0 units SC ACHS [facility] PRN Reason: Protocol Last Admin: 03/23/18 07:39 Dose: Not Given Lisinopril (Zestril) 10 mg PO DAILY [facility] Last Admin: 03/22/18 10:06 Dose: 10 mg Morphine Sulfate (Morphine) 4 mg IVP Q4H PRN PRN Reason: Pain, severe (8-10) Last Admin: 03/22/18 22:12 Dose: 4 mg Non-Formulary Medication (Fluticasone Furoate [Arnuity Ellipta]) 1 puff IH 0700 [facility] Last Admin: 03/23/18 07:39 Dose: Not Given Non-Formulary Medication (Folic Acid [Fa-8]) 0.8 mg PO DAILY [facility] Last Admin: 03/22/18 10:07 Dose: Not Given Non-Formulary Medication (Umeclidinium Brm/Vilanterol Tr [Anoro Ellipta 62.5-25 Mcg Inh]) 1 puff IH 0700 [facility] Last Admin: 03/22/18 10:08 Dose: Not Given Non-Formulary Medication (Vitamin B Complex [Super B-50 Complex]) 1 cap PO DAILY [facility] Last Admin: 03/22/18 10:08 Dose: Not Given Ondansetron HCl (Zofran Inj) 4 mg IVP ONCE PRN PRN Reason: Nausea/Vomiting Oxycodone HCl (Oxycodone Immediate Release Tab) 5 mg PO Q6H PRN PRN Reason: Pain, moderate (4-7) Last Admin: 03/21/18 17:24 Dose: 5 mg Sodium Hypochlorite (Dakins Solution 0.5%) 500 ml TOP DAILY [facility] Last Admin: 03/22/18 10:07 Dose: Not Given - Labs Labs: 03/22/18 06:00 03/22/18 08:10 PT 16.8 SECONDS (9.4-12.5) H 03/21/18 07:00 INR 1.45 (0.93-1.08) H 03/21/18 07:00 APTT 29.0 Seconds (25.1-36.5) 03/21/18 07:00 - Constitutional Appears: Non-toxic, No Acute Distress - Respiratory Exam Respiratory Exam: NORMAL BREATHING PATTERN. absent: Respiratory Distress - Cardiovascular Exam Cardiovascular Exam: +S1, +S2 - GI/Abdominal Exam GI & Abdominal Exam: Soft. absent: Distended, Guarding, Tenderness, Rebound Additional comments: LLQ wound with wound vac in place, good seal, on 125mmhg suction - Neurological Exam Neurological Exam: Alert, Awake, Oriented x3 - Psychiatric Exam Psychiatric exam: Normal Affect, Normal Mood Assessment and Plan - Assessment and Plan (Free Text) Assessment: 57 y/o F with large LLQ pannus non-healing wound s/p debridement and wound vac placement. POD #2 Plan: - Wound vac change on Sunday - Will reasses wound for further debridement - Continue abx - Discussed plan with Dr. Mo Rubio PGY-4
[2018-03-23 08:49] LABS: BASO # 0.02 K/mm3 (0.0-2.0); BASO % 0.3 % (0.0-3.0); EOS # 0.3 (0.0-0.7); EOS % 4.6 % (1.5-5.0); GRAN # 4.04 (1.4-6.5); GRAN % 62.2 % (50.0-68.0); HEMOGLOBIN 11.7 g/dL (12.0-16.0); LYMPH # 1.3 (1.2-3.4); LYMPH % 19.2 % (22.0-35.0); MEAN CELL VOLUME 87.1 fl (80.0-105.0); MEAN CORPUSCULAR HEMOGLOBIN 28.4 pg (25.0-35.0); MEAN CORPUSCULAR HGB CONC 32.6 g/dl (31.0-37.0); MEAN PLATELET VOLUME 9.8 fl (7.0-11.0); MONO # 0.9 (0.1-0.6); MONO % 13.7 % (1.0-6.0); RBC 4.12 10^6/uL (3.5-6.1); RED CELL DISTRIBUTION WIDTH 15.7 % (11.5-14.5); WHITE BLOOD COUNT 6.5 10^3/ul (4.5-11.0)
[2018-03-23] MEDS: Enoxaparin 40 mg Syringe SC SCH ×2 (08:59→21:44)
[2018-03-23] MEDS: Meropenem IV 1 gm in NS 50 ML IVPB SCH ×2 (08:59→21:44)
[2018-03-23] MEDS: oxyCODONE 5 mg Immediate Release Tab PO PRN ×2 (09:00→21:56)
[2018-03-23] MEDS: Non Formulary Medication (Umeclidinium Brm/Vilanterol Tr [Anoro Ellipta 62.5-25 Mcg Inh] 1 IH SCH (09:01)
[2018-03-23] MEDS: Non Formulary Medication (Vitamin B Complex [Super B-50 Complex] 1 CAP) PO SCH (09:01)
[2018-03-23] MEDS: Dakin's Topical 0.5%-Full Strength (480 ml) TOP SCH (09:02)
[2018-03-23] MEDS: FOLIC ACID 0.8 MG PO SCH (09:03)
[2018-03-23 09:07] LABS: BLOOD UREA NITROGEN 27 mg/dL (7-21); CALCIUM 8.3 mg/dL (8.4-10.5); GFR AFRICAN-AMERICAN > 60; GFR NON-AFRICAN AMERICAN > 60
--- NOTE | 2018-03-23 10:56 | PN ---
DATE: 03/23/2018 SUBJECTIVE: The patient is seen earlier this morning in room 369, bed 2. She is comfortable. No fevers. No chills. No nausea and vomiting. PHYSICAL EXAMINATION: VITAL SIGNS: On exam, temperature is 98, blood pressure is 115/60, respiratory rate of 18, heart rate of 76. HEENT: Examination of HEENT is unremarkable. NECK: Supple. LUNGS: Have decreased breath sounds. HEART: Normal S1, S2. ABDOMEN: Soft, nontender. LABORATORY DATA: Laboratory examination reveals a white count of 7.4, hemoglobin of 11, platelets of 232. Coagulation is noted. Chemistries reveals a BUN of 29, creatinine of 0.7. Microbiology reveals the cultures are noted with E. coli and gram-positive cocci from the abdominal cultures from the OR from 03/21/2018. The earlier cultures did grow Corynebacterium and E. coli. The E. coli is reported to be pansensitive. The Corynebacterium, no sensitivity available. Blood cultures are negative. Review of orders, the patient with IV vancomycin and meropenem. ASSESSMENT AND PLAN: A 57-year-old female with morbid obesity, body mass index of 41 and hypertension, chronic obstructive lung disease, congestive heart failure, pulmonary emboli, dilated cardiomyopathy, admitted with abdominal wall stage II pressure ulcer with cellulitis with a pansensitive Escherichia coli and Corynebacterium. On day #4 of vancomycin and meropenem. We will check on the vancomycin trough level. Vancomycin is given at 07:00 a.m. and 07:00 p.m. We will ask for a vancomycin trough level at 06:00 p.m. tonight an hour before the 07:00 p.m. dose. At 06:00 p.m., 1800 hours today. Brock Gambino MD
--- NOTE | 2018-03-23 11:42 | PN ---
SUBJECTIVE: The patient was seen and examined at bedside on the remote telemetry hinkle. No acute events overnight. She remains afebrile, hemodynamically stable and is doing well s/p OR debridement of her chronic nonhealing stage II pressure ulcer to the left lower abdominal quadrant. OBJECTIVE: VITAL SIGNS: Temperature 97.6, pulse 79, blood pressure 144/81, respiratory rate 20, oxygen saturation 100% on room air. GENERAL: Morbidly obese woman, sitting up in her chair, in no apparent distress. HEENT: PERRL. EOMI. No scleral icterus. No conjunctival pallor. NECK: No JVD. LUNGS: Clear to auscultation. CARDIOVASCULAR: Regular rate and rhythm. Normal S1 and S2. ABDOMEN: Obese, normoactive bowel sounds, soft, nontender and nondistended. Surgical dressing and wound VAC in place. EXTREMITIES: Trace lower extremity edema bilaterally. NEUROLOGIC: Awake, alert and oriented x 3. No focal motor deficits. LABORATORY DATA: Morning labs are pending. Blood cultures are negative. Wound culture with E. coli and Corynebacterium with sensitivities noted. ASSESSMENT: The patient is a 57 year old woman with multiple medical comorbidities including morbid obesity and a chronic nonhealing abdominal wall wound who presented for electively scheduled surgical intervention and is now s/p OR debridement s/p wound VAC. PLAN: 1. Cellulitis of the abdominal wall with stage II pressure ulcer s/p OR debridement s/p wound VAC. Continue with postoperative care as per Dr. Hassan and the surgical team. Input from Dr. Gambino appreciated and the patient remains on Vancomycin and Meropenem. 2. Dilated cardiomyopathy with an EF of 30%. Continue with current medications. The patient remains on Lovenox and will be restarted on Coumadin when cleared from the surgical standpoint. 3. History of DVT and PE s/p IVC filter. As above, we will maintain the patient on Lovenox and resume oral anticoagulation when okay from surgical standpoint. 4. Hypertension. BP controlled. Continue current medications. 5. Iron deficiency anemia. H/H remained stable. Continue Feosol 324 mg p.o. b.i.d. 6. NIDDM, continue medium-dose insulin sliding scale for coverage. 7. Anxiety disorder. Continue Xanax 0.25 mg p.o. daily. 8. Morbid obesity. 9. COPD. Continue with supplemental oxygen and bronchodilators as needed. 10. Prophylaxis. GI prophylaxis not indicated as the patient is eating. The patient remains on Lovenox thus DVT prophylaxis is not indicated. CODE STATUS: Full code. Jorge Nguyen MD MTDD
[2018-03-24] MEDS: Non Formulary Medication (Umeclidinium Brm/Vilanterol Tr [Anoro Ellipta 62.5-25 Mcg Inh] 1 IH SCH (07:23)
[2018-03-24] MEDS: Non Formulary Medication (Fluticasone Furoate [Arnuity Ellipta] 1 PUFF) IH SCH (07:23)
[2018-03-24 07:30] LABS: BLOOD UREA NITROGEN 28 mg/dL (7-21); CALCIUM 8.6 mg/dL (8.4-10.5); GFR AFRICAN-AMERICAN > 60; GFR NON-AFRICAN AMERICAN > 60
[2018-03-24] MEDS: Insulin Reg-MEDIUM-Coverage SC SCH ×4 (07:51→22:20)
[2018-03-24 08:02] LABS: BASO # 0.02 K/mm3 (0.0-2.0); BASO % 0.3 % (0.0-3.0); EOS # 0.4 (0.0-0.7); EOS % 6.2 % (1.5-5.0); GRAN # 3.6 (1.4-6.5); GRAN % 58.9 % (50.0-68.0); HEMOGLOBIN 11.8 g/dL (12.0-16.0); LYMPH # 1.5 (1.2-3.4); LYMPH % 23.7 % (22.0-35.0); MEAN CELL VOLUME 85.8 fl (80.0-105.0); MEAN CORPUSCULAR HGB CONC 32.6 g/dl (31.0-37.0); MEAN PLATELET VOLUME 9.8 fl (7.0-11.0); MONO # 0.7 (0.1-0.6); MONO % 10.9 % (1.0-6.0); RBC 4.22 10^6/uL (3.5-6.1); RED CELL DISTRIBUTION WIDTH 15.5 % (11.5-14.5); WHITE BLOOD COUNT 6.1 10^3/ul (4.5-11.0)
[2018-03-24] MEDS: Meropenem IV 1 gm in NS 50 ML IVPB SCH ×2 (09:38→21:17)
[2018-03-24] MEDS: Enoxaparin 40 mg Syringe SC SCH ×2 (09:38→21:16)
[2018-03-24] MEDS: oxyCODONE 5 mg Immediate Release Tab PO PRN (09:39)
[2018-03-24] MEDS: FOLIC ACID 0.8 MG PO SCH (09:40)
[2018-03-24] MEDS: Dakin's Topical 0.5%-Full Strength (480 ml) TOP SCH (09:40)
[2018-03-24] MEDS: Non Formulary Medication (Vitamin B Complex [Super B-50 Complex] 1 CAP) PO SCH (09:41)
--- NOTE | 2018-03-24 13:28 | PN ---
DATE: 03/24/2018 SUBJECTIVE: The patient is in bed, in no acute distress, was seen early this morning. The patient is somewhat anxious about her culture results. I spent significant amount of time with the patient answering all of her questions. She feels much better. She states she has no fevers. She is tolerating the antibiotics. PHYSICAL EXAMINATION: VITAL SIGNS: Temperature of 98, blood pressure is 130/80, respiratory rate of 20, heart rate of 77. HEENT: Unremarkable. NECK: Supple. LUNGS: Have decreased breath sounds. HEART: Normal S1, S2. ABDOMEN: Soft, nontender. LABORATORY DATA: Reveals a white count of 6.1, hemoglobin of 11, platelets of 245. Coagulation is noted. The chemistries reveal a BUN of 28, creatinine of 0.6. Microbiology reveals the patient has abdominal cultures from the OR from the 03/21/2018, is E. coli and VRE, VRE sensitive to linezolid. The E. coli is referred to a specimen number from previous and a 03/18/2018 cultures grew E. coli, which is a relatively sensitive organism and Corynebacterium. The E. coli there is heavy growth with Corynebacterium is light growth as is the E. coli in the 03/21/2018 cultures is light growth and the VRE is light growth. The patient's medications are reviewed. The patient is not on any antidepressants and currently on meropenem and Zyvox. Dr. Jorge Nguyen's progress note is reviewed. ASSESSMENT AND PLAN: This is a 57-year-old female who was seen early this morning in room 369, bed 2 with a history of morbid obesity with a body mass index of 41, hypertension, chronic obstructive lung disease, congestive heart failure, pulmonary emboli, dilated cardiomyopathy, admitted with abdominal wall stage II ulcer and cellulitis with Escherichia coli that is pansensitive, initial culture grew Corynebacterium and now growing vancomycin-resistant enterococci, status post debridement and currently on Zyvox day #2, meropenem day #5 and continue local wound care. I had initially asked for pathology report for deep tissue cultures for acid-fast bacillus and fungal stain and the patient did routine bacterial cultures and Gram stain. I have asked for a pathology report to rule out pyoderma gangrenosum in this chronic wound infection that recurred in the abdominal wall. We will continue the meropenem and Zyvox pending the pathology report. Case discussed with the patient at length. All of her questions have answered. Her anxiety has subsided. However, would keep the patient on vancomycin-resistant enterococci precautions. Brock Gambino MD
--- NOTE | 2018-03-24 14:13 | PN ---
SUBJECTIVE: The patient was seen and examined at bedside on the remote telemetry hinkle. No acute events overnight. She remains afebrile and hemodynamically stable. PHYSICAL EXAMINATION: VITAL SIGNS: Temperature 97.6, pulse 77, blood pressure 142/62, respiratory rate 20, oxygen saturation 97% on room air. GENERAL: Morbidly obese woman, sitting up in her chair, in no apparent distress. HEENT: PERRL. EOMI. No scleral icterus. No conjunctival pallor. NECK: No JVD. LUNGS: Clear to auscultation. CARDIOVASCULAR: Regular rate and rhythm. Normal S1 and S2. ABDOMEN: Obese, normoactive bowel sounds, soft, nontender and nondistended. Surgical dressing and wound VAC in place. EXTREMITIES: Trace lower extremity edema bilaterally. NEUROLOGIC: Awake, alert and oriented x 3. No focal motor deficits. LABORATORY DATA: CBC reviewed and unremarkable. CMP reviewed and unremarkable. Blood cultures are negative. Wound cultures with E. coli and Corynebacterium with sensitivities noted. ASSESSMENT: The patient is a 57 year old woman with multiple medical comorbidities including morbid obesity and a chronic nonhealing abdominal wall wound who presented for electively scheduled surgical intervention who is now s/p OR debridement s/p wound VAC. PLAN: 1. Cellulitis of the abdominal wall with stage II pressure ulcer s/p OR debridement s/p wound VAC. Continue with postoperative care as per Dr. Hassan and surgical team. Input from Dr. Gambino greatly appreciated. Continue with current antimicrobials. 2. Dilated cardiomyopathy with an EF of 30%. Continue with current medications. The patient remains on Lovenox and will be restarted on Coumadin when okay from the surgical standpoint. 3. History of DVT and PE s/p IVC filter. As above, we will resume oral anticoagulation therapy when okay from surgical standpoint and in the interim we will continue therapeutic Lovenox. 4. Hypertension. BP controlled. Continue current medications. 5. Iron deficiency anemia. H/H remain stable. Continue Feosol 324 mg p.o. b.i.d. 6. NIDDM. Continue medium-dose insulin sliding scale for coverage. 7. Anxiety disorder. Continue Xanax 0.25 mg p.o. daily. 8. COPD. Continue supplemental oxygen and bronchodilators as needed. 9. Morbid obesity. 10. Prophylaxis. GI prophylaxis is not indicated as the patient is eating. She remains on Lovenox thus DVT prophylaxis is not indicated. CODE STATUS: Full code. Jorge Nguyen MD MTDD
[2018-03-25] MEDS: oxyCODONE 5 mg Immediate Release Tab PO PRN ×3 (00:23→22:08)
[2018-03-25 06:38] LABS: BASO # 0.02 K/mm3 (0.0-2.0); BASO % 0.3 % (0.0-3.0); EOS # 0.3 (0.0-0.7); EOS % 5.3 % (1.5-5.0); GRAN # 3.62 (1.4-6.5); GRAN % 56.8 % (50.0-68.0); HEMOGLOBIN 11.8 g/dL (12.0-16.0); LYMPH # 1.6 (1.2-3.4); LYMPH % 25.7 % (22.0-35.0); MEAN CELL VOLUME 86.5 fl (80.0-105.0); MEAN CORPUSCULAR HEMOGLOBIN 28.4 pg (25.0-35.0); MEAN CORPUSCULAR HGB CONC 32.9 g/dl (31.0-37.0); MEAN PLATELET VOLUME 9.7 fl (7.0-11.0); MONO # 0.8 (0.1-0.6); MONO % 11.9 % (1.0-6.0); RBC 4.15 10^6/uL (3.5-6.1); RED CELL DISTRIBUTION WIDTH 15.4 % (11.5-14.5); WHITE BLOOD COUNT 6.4 10^3/ul (4.5-11.0)
[2018-03-25 06:46] LABS: BLOOD UREA NITROGEN 28 mg/dL (7-21); CALCIUM 8.4 mg/dL (8.4-10.5); GFR AFRICAN-AMERICAN > 60; GFR NON-AFRICAN AMERICAN > 60
--- NOTE | 2018-03-25 08:19 | PN ---
SUBJECTIVE: The patient was seen and examined at bedside on the remote telemetry hinkle. No acute events overnight. She remains afebrile and hemodynamically stable. She is scheduled for bedside debridement of her abdominal wound today. PHYSICAL EXAMINATION: VITAL SIGNS: Temperature 98.1, pulse 75, blood pressure 130/72, respiratory rate 20, oxygen saturation 97% on room air. GENERAL: Morbidly obese woman, lying in bed, in no apparent distress. HEENT: PERRL. EOMI. No scleral icterus. No conjunctival pallor. NECK: No JVD. LUNGS: Clear to auscultation. CARDIOVASCULAR: Regular rate and rhythm. Normal S1 and S2. ABDOMEN: Obese, normoactive bowel sounds, soft, nontender and nondistended and surgical dressing and wound VAC in place. EXTREMITIES: Trace lower extremity edema bilaterally. NEUROLOGIC: Awake, alert and oriented x 3. No focal motor deficits. LABORATORY DATA: CBC reviewed and unremarkable. CMP reviewed and unremarkable. ASSESSMENT: The patient is a 57 year old woman with multiple medical comorbidities including morbid obesity and a chronic nonhealing abdominal wall wound who presented for electively scheduled surgical intervention and is now s/p OR debridement s/p wound VAC. PLAN: 1. Cellulitis of the abdominal wall with stage II pressure ulcer s/p OR debridement s/p wound VAC. Continue with postoperative care and local wound care as per Dr. Hassan and the surgical team. Input from Dr. Gambino appreciated and the patient remains on Meropenem 1 g IV every 12 hours and Linezolid 600 mg p.o. b.i.d. 2. Dilated cardiomyopathy with an EF of 30%. Continue with current medications. The patient remains on therapeutic Lovenox and will be restarted on Coumadin when okay from the surgical standpoint. 3. History of DVT and PE s/p IVC filter. As above, we will resume oral anticoagulation therapy when okay from surgical standpoint. 4. Hypertension. BP controlled. Continue current medications. 5. Iron deficiency anemia. H/H remain stable. Continue Feosol 324 mg p.o. b.i.d. 6. NIDDM. Continue medium-dose insulin sliding scale for coverage. 7. Anxiety disorder. Continue Xanax 0.25 mg p.o. daily. 8. COPD. Continue supplemental oxygen and bronchodilators as needed. 9. Morbid obesity. 10. Prophylaxis. GI prophylaxis is not indicated as the patient is eating. She remains on Lovenox thus DVT prophylaxis not indicated. CODE STATUS: Full code. Jorge Nguyen MD MTDDarío
[2018-03-25] MEDS: Non Formulary Medication (Fluticasone Furoate [Arnuity Ellipta] 1 PUFF) IH SCH (08:41)
[2018-03-25] MEDS: Insulin Reg-MEDIUM-Coverage SC SCH ×4 (08:41→23:50)
[2018-03-25] MEDS: Non Formulary Medication (Umeclidinium Brm/Vilanterol Tr [Anoro Ellipta 62.5-25 Mcg Inh] 1 IH SCH (08:42)
--- NOTE | 2018-03-25 09:18 | CP.PCM.PN ---
Subjective - Date & Time of Evaluation Date of Evaluation: 03/25/18 Time of Evaluation: 09:11 - Subjective Subjective: General Surgery Note for: Dr. Hassan Pt was seen and examined this morning at bedside.She denied any acute overnight events and denies any acute complaints today. She denies fever, chills, nausea, vomiting and admits to having a BM and passing flatus. She states her abdominal pain is tolerable with the pain medication. Objective - Vital Signs/Intake and Output Vital Signs (last 24 hours): Temp Pulse Resp BP Pulse Ox 97.6 F 81 20 134/86 98 03/25/18 08:13 03/25/18 08:13 03/25/18 08:13 03/25/18 08:13 03/25/18 08:13 Intake and Output: 03/25/18 03/25/18 06:59 18:59 Intake Total 720 Output Total 0 Balance 720 - Medications Medications: Current Medications Alprazolam (Xanax) 0.25 mg PO PRN PRN; Protocol PRN Reason: Anxiety Stop: 03/25/18 13:46 Last Admin: 03/25/18 01:17 Dose: 0.25 mg Carvedilol (Coreg) 3.125 mg PO BID [facility] Last Admin: 03/24/18 17:27 Dose: 3.125 mg Docusate Sodium (Colace) 100 mg PO BID [facility] Last Admin: 03/24/18 17:27 Dose: 100 mg Enoxaparin Sodium (Lovenox) 40 mg SC Q12H [facility] Last Admin: 03/24/18 21:16 Dose: 40 mg Ferrous Sulfate (Feosol) 324 mg PO BID [facility] Last Admin: 03/24/18 17:27 Dose: 324 mg Hydrochlorothiazide (Microzide) 12.5 mg PO DAILY [facility] Last Admin: 03/24/18 09:39 Dose: 12.5 mg Meropenem (Merrem Iv 1 Gm Premix) 50 mls @ 100 mls/hr IVPB Q12 [facility] PRN Reason: Protocol Stop: 03/28/18 22:34 Last Admin: 03/24/18 21:17 Dose: 100 mls/hr Insulin Human Regular (Humulin R Med) 0 units SC ACHS [facility] PRN Reason: Protocol Last Admin: 03/25/18 08:41 Dose: Not Given Linezolid (Zyvox) 600 mg PO BID [facility] PRN Reason: Protocol Last Admin: 03/24/18 17:27 Dose: 600 mg Lisinopril (Zestril) 10 mg PO DAILY [facility] Last Admin: 03/24/18 09:39 Dose: 10 mg Non-Formulary Medication (Fluticasone Furoate [Arnuity Ellipta]) 1 puff IH 0700 [facility] Last Admin: 03/25/18 08:41 Dose: Not Given Non-Formulary Medication (Folic Acid [Fa-8]) 0.8 mg PO DAILY [facility] Last Admin: 03/24/18 09:40 Dose: Not Given Non-Formulary Medication (Umeclidinium Brm/Vilanterol Tr [Anoro Ellipta 62.5-25 Mcg Inh]) 1 puff IH 0700 [facility] Last Admin: 03/25/18 08:42 Dose: Not Given Non-Formulary Medication (Vitamin B Complex [Super B-50 Complex]) 1 cap PO DAILY [facility] Last Admin: 03/24/18 09:41 Dose: Not Given Ondansetron HCl (Zofran Inj) 4 mg IVP ONCE PRN PRN Reason: Nausea/Vomiting Oxycodone HCl (Oxycodone Immediate Release Tab) 5 mg PO Q6H PRN PRN Reason: Pain, moderate (4-7) Last Admin: 03/25/18 06:59 Dose: 5 mg Sodium Hypochlorite (Dakins Solution 0.5%) 500 ml TOP DAILY [facility] Last Admin: 03/24/18 09:40 Dose: Not Given - Labs Labs: 03/25/18 06:00 03/25/18 06:00 PT 16.8 SECONDS (9.4-12.5) H 03/21/18 07:00 INR 1.45 (0.93-1.08) H 03/21/18 07:00 APTT 29.0 Seconds (25.1-36.5) 03/21/18 07:00 - Constitutional Appears: Well, Non-toxic, No Acute Distress - Head Exam Head Exam: ATRAUMATIC, NORMAL INSPECTION - Eye Exam Eye Exam: EOMI, Normal appearance Pupil Exam: PERRL - ENT Exam ENT Exam: Mucous Membranes Moist - Respiratory Exam Respiratory Exam: Clear to Ausculation Bilateral, NORMAL BREATHING PATTERN - Cardiovascular Exam Cardiovascular Exam: REGULAR RHYTHM - GI/Abdominal Exam GI & Abdominal Exam: Soft, Tenderness (present on the left side of her wound.), Normal Bowel Sounds. absent: Distended, Firm, Guarding Additional comments: Wound vac replaced, seal holding. - Neurological Exam Neurological Exam: Alert, Awake, Oriented x3 - Psychiatric Exam Psychiatric exam: Normal Affect, Normal Mood - Skin Skin Exam: Warm. absent: Cyanosis, Erythema, Petechiae, Rash Additional comments: Wound is 15 cm x 8 x 2 with yellow base. Small islands of granulation tissue present. Assessment and Plan - Assessment and Plan (Free Text) Assessment: Pt is a 57 yo F who presented with a large LLQ paanus with a non-healing wound, s/p debridement and wound vac placement. POD #3 Plan: - Wound vac changed today 03/25/18, seal is holding and suction is on. - Will schedule for OR debridement - Pt diet changed from NPO to heart healthy diet - Continue Antibiotics - Further recommendations per Dr. Hassan
[2018-03-25] MEDS: Meropenem IV 1 gm in NS 50 ML IVPB SCH ×2 (09:53→22:08)
[2018-03-25] MEDS: FOLIC ACID 0.8 MG PO SCH (09:57)
[2018-03-25] MEDS: Enoxaparin 40 mg Syringe SC SCH ×2 (09:58→22:08)
[2018-03-25] MEDS: Non Formulary Medication (Vitamin B Complex [Super B-50 Complex] 1 CAP) PO SCH (09:58)
--- NOTE | 2018-03-25 10:40 | PN ---
DATE: 03/25/2018 CARDIOLOGY FOLLOWUP HISTORY: The patient is a 57-year-old woman. She is currently undergoing wound care. PHYSICAL EXAMINATION: VITAL SIGNS: Blood pressure is 134/86, heart rate is in the 80s. NECK: Negative JVD. LUNGS: Without rales. HEART: Reveals S1, S2. EXTREMITIES: Without edema. LABORATORY DATA: BUN and creatinine unremarkable. Glucose is 121, hemoglobin is 11.9, white count is normal. IMPRESSION: 1. Infected abdominal wall. 2. Severe dilated cardiomyopathy. 3. History of pulmonary embolism. 4. No evidence for congestive heart failure. 5. Anemia. PLAN: Given these findings, we need to start the patient on full-dose anticoagulation once cleared by Surgery. Florian Nguyễn MD
--- NOTE | 2018-03-25 13:26 | PN ---
DATE: 03/24/2018 The wound VAC is in place. We will change it tomorrow. We will make her n.p.o. in case we decide to take her to the operating room. It might be a little bit early for that, but we will see. Scott Hassan MD
--- NOTE | 2018-03-25 16:21 | CP.PCM.PN ---
Subjective - Date & Time of Evaluation Date of Evaluation: 03/25/18 Time of Evaluation: 09:25 - Subjective Subjective: Comfortable in bed, no fevers, less pain in the abdomen, still worried about having her wound closed on Sunday. Objective - Vital Signs/Intake and Output Vital Signs (last 24 hours): Temp Pulse Resp BP Pulse Ox 97.6 F 81 20 134/86 98 03/25/18 08:13 03/25/18 08:13 03/25/18 08:13 03/25/18 08:13 03/25/18 08:13 Intake and Output: 03/25/18 03/25/18 06:59 18:59 Intake Total 720 Output Total 0 Balance 720 - Medications Medications: Current Medications Alprazolam (Xanax) 0.25 mg PO PRN PRN; Protocol PRN Reason: Anxiety Stop: 03/25/18 13:46 Last Admin: 03/25/18 01:17 Dose: 0.25 mg Carvedilol (Coreg) 3.125 mg PO BID [facility] Last Admin: 03/24/18 17:27 Dose: 3.125 mg Docusate Sodium (Colace) 100 mg PO BID [facility] Last Admin: 03/24/18 17:27 Dose: 100 mg Enoxaparin Sodium (Lovenox) 40 mg SC Q12H [facility] Last Admin: 03/24/18 21:16 Dose: 40 mg Ferrous Sulfate (Feosol) 324 mg PO BID [facility] Last Admin: 03/24/18 17:27 Dose: 324 mg Hydrochlorothiazide (Microzide) 12.5 mg PO DAILY [facility] Last Admin: 03/24/18 09:39 Dose: 12.5 mg Meropenem (Merrem Iv 1 Gm Premix) 50 mls @ 100 mls/hr IVPB Q12 [facility] PRN Reason: Protocol Stop: 03/28/18 22:34 Last Admin: 03/24/18 21:17 Dose: 100 mls/hr Insulin Human Regular (Humulin R Med) 0 units SC ACHS [facility] PRN Reason: Protocol Last Admin: 03/24/18 22:20 Dose: Not Given Linezolid (Zyvox) 600 mg PO BID [facility] PRN Reason: Protocol Last Admin: 03/24/18 17:27 Dose: 600 mg Lisinopril (Zestril) 10 mg PO DAILY [facility] Last Admin: 03/24/18 09:39 Dose: 10 mg Morphine Sulfate (Morphine) 4 mg IVP Q4H PRN PRN Reason: Pain, severe (8-10) Last Admin: 03/22/18 22:12 Dose: 4 mg Non-Formulary Medication (Fluticasone Furoate [Arnuity Ellipta]) 1 puff IH 0700 [facility] Last Admin: 03/24/18 07:23 Dose: Not Given Non-Formulary Medication (Folic Acid [Fa-8]) 0.8 mg PO DAILY [facility] Last Admin: 03/24/18 09:40 Dose: Not Given Non-Formulary Medication (Umeclidinium Brm/Vilanterol Tr [Anoro Ellipta 62.5-25 Mcg Inh]) 1 puff IH 0700 [facility] Last Admin: 03/24/18 07:23 Dose: Not Given Non-Formulary Medication (Vitamin B Complex [Super B-50 Complex]) 1 cap PO DAILY [facility] Last Admin: 03/24/18 09:41 Dose: Not Given Ondansetron HCl (Zofran Inj) 4 mg IVP ONCE PRN PRN Reason: Nausea/Vomiting Oxycodone HCl (Oxycodone Immediate Release Tab) 5 mg PO Q6H PRN PRN Reason: Pain, moderate (4-7) Last Admin: 03/25/18 06:59 Dose: 5 mg Sodium Hypochlorite (Dakins Solution 0.5%) 500 ml TOP DAILY [facility] Last Admin: 03/24/18 09:40 Dose: Not Given - Labs Labs: 03/25/18 06:00 03/25/18 06:00 PT 16.8 SECONDS (9.4-12.5) H 03/21/18 07:00 INR 1.45 (0.93-1.08) H 03/21/18 07:00 APTT 29.0 Seconds (25.1-36.5) 03/21/18 07:00 - Constitutional Appears: Non-toxic, Chronically Ill - Head Exam Head Exam: NORMAL INSPECTION - Respiratory Exam Respiratory Exam: Decreased Breath Sounds - Cardiovascular Exam Cardiovascular Exam: +S1, +S2 - GI/Abdominal Exam GI & Abdominal Exam: Soft. absent: Tenderness Additional comments: wound vacuum in place Assessment and Plan - Assessment and Plan (Free Text) Plan: Assessment abdominal wound infection with panniculitis S/P debridement and wound vacuum placement, growing VRE and E. coli, R/O pyoderma gangrenosum history of acute pulmonary embolism, on anticoagulation HTN DM morbid obesity with BMI 44 Plan on Zyvox and Merrem day 6 - follow up OR pathologies patient for debridement again on Sunday
--- NOTE | 2018-03-25 19:39 | CP.PCM.PN ---
Subjective - Date & Time of Evaluation Date of Evaluation: 03/25/18 Time of Evaluation: 08:00 - Subjective Subjective: Patient seen and examined at bedside this AM. Was called to bedside by nurse who stated that the tracheostomy tube seemed out of place. Tracheostomy tube was protruding approximately 1-2cm further out from the neck than prior exams. Attempted to thread the suction catheter through the tracheostomy tube but was met with resistance. Using the obturator tube was able to be re-inserted into the trachea and the collar was more securely fastened. Patient had some coughing of pink tinged phlegm after the re-insertion but otherwise tolerated it well. Objective - Vital Signs/Intake and Output Vital Signs (last 24 hours): Temp Pulse Resp BP Pulse Ox 97.6 F 81 20 134/86 98 03/25/18 08:13 03/25/18 18:00 03/25/18 08:13 03/25/18 18:00 03/25/18 08:13 - Medications Medications: Current Medications Carvedilol (Coreg) 3.125 mg PO BID [facility] Last Admin: 03/25/18 18:00 Dose: 3.125 mg Docusate Sodium (Colace) 100 mg PO BID [facility] Last Admin: 03/25/18 18:01 Dose: Not Given Enoxaparin Sodium (Lovenox) 40 mg SC Q12H [facility] Last Admin: 03/25/18 09:58 Dose: 40 mg Ferrous Sulfate (Feosol) 324 mg PO BID [facility] Last Admin: 03/25/18 18:01 Dose: 324 mg Hydrochlorothiazide (Microzide) 12.5 mg PO DAILY [facility] Last Admin: 03/25/18 09:57 Dose: 12.5 mg Meropenem (Merrem Iv 1 Gm Premix) 50 mls @ 100 mls/hr IVPB Q12 [facility] PRN Reason: Protocol Stop: 03/28/18 22:34 Last Admin: 03/25/18 09:53 Dose: 100 mls/hr Insulin Human Regular (Humulin R Med) 0 units SC ACHS [facility] PRN Reason: Protocol Last Admin: 03/25/18 17:57 Dose: Not Given Linezolid (Zyvox) 600 mg PO BID [facility] PRN Reason: Protocol Last Admin: 03/25/18 18:00 Dose: 600 mg Lisinopril (Zestril) 10 mg PO DAILY [facility] Last Admin: 03/25/18 09:56 Dose: 10 mg Non-Formulary Medication (Fluticasone Furoate [Arnuity Ellipta]) 1 puff IH 0700 [facility] Last Admin: 03/25/18 08:41 Dose: Not Given Non-Formulary Medication (Folic Acid [Fa-8]) 0.8 mg PO DAILY [facility] Last Admin: 03/25/18 09:57 Dose: 0.8 mg Non-Formulary Medication (Umeclidinium Brm/Vilanterol Tr [Anoro Ellipta 62.5-25 Mcg Inh]) 1 puff IH 0700 [facility] Last Admin: 03/25/18 08:42 Dose: Not Given Non-Formulary Medication (Vitamin B Complex [Super B-50 Complex]) 1 cap PO DAILY [facility] Last Admin: 03/25/18 09:58 Dose: Not Given Ondansetron HCl (Zofran Inj) 4 mg IVP ONCE PRN PRN Reason: Nausea/Vomiting Oxycodone HCl (Oxycodone Immediate Release Tab) 5 mg PO Q6H PRN PRN Reason: Pain, moderate (4-7) Last Admin: 03/25/18 06:59 Dose: 5 mg - Labs Labs: 03/25/18 06:00 03/25/18 06:00 PT 16.8 SECONDS (9.4-12.5) H 03/21/18 07:00 INR 1.45 (0.93-1.08) H 03/21/18 07:00 APTT 29.0 Seconds (25.1-36.5) 03/21/18 07:00 - Constitutional Appears: Well, Non-toxic, No Acute Distress - Head Exam Head Exam: ATRAUMATIC, NORMOCEPHALIC - Eye Exam Eye Exam: Normal appearance. absent: Conjunctival injection, Scleral icterus - ENT Exam ENT Exam: Mucous Membranes Moist, Normal Oropharynx - Neck Exam Additional comments: tracheostomy in adequate position after re-insertion, moderate amount of pink tinged sputum production, no active bleeding, no surrounding swelling or erythema - Respiratory Exam Respiratory Exam: NORMAL BREATHING PATTERN. absent: Accessory Muscle Use, Respiratory Distress - Extremities Exam Extremities Exam: absent: Calf Tenderness - Neurological Exam Neurological Exam: Alert, Awake, Oriented x3 - Psychiatric Exam Psychiatric exam: Normal Affect, Normal Mood - Skin Skin Exam: Dry, Intact, Normal Color, Warm Assessment and Plan - Assessment and Plan (Free Text) Assessment: Pt with tra
[2018-03-26 06:21] LABS: BASO # 0.04 K/mm3 (0.0-2.0); BASO % 0.6 % (0.0-3.0); EOS # 0.3 (0.0-0.7); EOS % 4.5 % (1.5-5.0); GRAN # 4.02 (1.4-6.5); HEMOGLOBIN 12.3 g/dL (12.0-16.0); LYMPH # 2.1 (1.2-3.4); LYMPH % 29.2 % (22.0-35.0); MEAN CELL VOLUME 86.7 fl (80.0-105.0); MEAN CORPUSCULAR HEMOGLOBIN 28.2 pg (25.0-35.0); MEAN CORPUSCULAR HGB CONC 32.5 g/dl (31.0-37.0); MEAN PLATELET VOLUME 9.5 fl (7.0-11.0); MONO # 0.7 (0.1-0.6); MONO % 9.7 % (1.0-6.0); RBC 4.36 10^6/uL (3.5-6.1); RED CELL DISTRIBUTION WIDTH 15.3 % (11.5-14.5); WHITE BLOOD COUNT 7.2 10^3/ul (4.5-11.0)
[2018-03-26 06:41] LABS: BLOOD UREA NITROGEN 24 mg/dL (7-21); GFR AFRICAN-AMERICAN > 60; GFR NON-AFRICAN AMERICAN > 60
[2018-03-26] MEDS: Insulin Reg-MEDIUM-Coverage SC SCH ×4 (07:42→21:52)
[2018-03-26] MEDS: Non Formulary Medication (Fluticasone Furoate [Arnuity Ellipta] 1 PUFF) IH SCH (07:42)
[2018-03-26] MEDS: Non Formulary Medication (Umeclidinium Brm/Vilanterol Tr [Anoro Ellipta 62.5-25 Mcg Inh] 1 IH SCH (07:43)
--- NOTE | 2018-03-26 08:21 | PN ---
SUBJECTIVE: The patient was seen and examined at bedside on the remote telemetry hinkle. No acute events overnight. She remains afebrile, hemodynamically stable and is doing well s/p bedside debridement of her abdominal wall wound. PHYSICAL EXAMINATION: VITAL SIGNS: Temperature 98, pulse 71, blood pressure 135/82, respiratory rate 20, oxygen saturation 97% on room air. GENERAL: Morbidly obese woman, lying in bed, in no apparent distress. HEENT: PERRL. EOMI. No scleral icterus. No conjunctival pallor. NECK: No JVD. LUNGS: Clear to auscultation. CARDIOVASCULAR: Regular rate and rhythm. Normal S1 and S2. ABDOMEN: Obese, normoactive bowel sounds, soft, nontender, nondistended. Surgical dressing and wound VAC in place. EXTREMITIES: Trace lower extremity edema bilaterally. NEUROLOGIC: Awake, alert and oriented x 3. No focal motor deficits. LABORATORY DATA: CBC reviewed and unremarkable. CMP reviewed and unremarkable. ASSESSMENT: The patient is a 57 year old woman with multiple medical comorbidities including morbid obesity and a chronic nonhealing abdominal wall wound who presented for electively scheduled surgical intervention and is now s/p OR debridement s/p wound VAC. PLAN: 1. Cellulitis of the abdominal wall with stage II pressure ulcer s/p OR debridement s/p wound VAC. Continue with postoperative care and local wound care as per Dr. Hassan and the surgical team. Input from Dr. Ross appreciated and the patient remains on Meropenem and Linezolid. 2. Dilated cardiomyopathy with an EF of 30%. Continue with current medications. The patient remains on therapeutic Lovenox and will be restarted on Coumadin when okay from surgical standpoint. 3. History of DVT and PE s/p IVC filter. As above, we will resume oral anticoagulation therapy when okay from surgical standpoint. 4. Hypertension. BP controlled. Continue current medications. 5. Iron deficiency anemia. H/H remain stable. Continue Feosol 324 mg p.o. b.i.d. 6. NIDDM. Continue medium-dose insulin sliding scale for coverage. 7. Anxiety disorder. Continue Xanax 0.25 mg p.o. daily. 8. COPD. Continue supplemental oxygen and bronchodilators as needed. 9. Morbid obesity. 10. Prophylaxis. GI prophylaxis is not indicated as the patient is eating. She remains on Lovenox thus DVT prophylaxis is not indicated. CODE STATUS: Full code. Jorge Nguyen MD ISMA[facility]
[2018-03-26] MEDS: Meropenem IV 1 gm in NS 50 ML IVPB SCH ×2 (10:47→21:52)
[2018-03-26] MEDS: oxyCODONE 5 mg Immediate Release Tab PO PRN ×2 (10:49→22:53)
[2018-03-26] MEDS: Enoxaparin 40 mg Syringe SC SCH ×2 (10:50→21:52)
[2018-03-26] MEDS: Non Formulary Medication (Vitamin B Complex [Super B-50 Complex] 1 CAP) PO SCH (10:50)
[2018-03-26] MEDS: FOLIC ACID 0.8 MG PO SCH (10:51)
--- NOTE | 2018-03-26 11:03 | CP.PCM.PN ---
Subjective - Date & Time of Evaluation Date of Evaluation: 03/26/18 Time of Evaluation: 10:59 - Subjective Subjective: General Surgery Progress Note for: Dr. Hassan Pt was seen and examined this morning at bedside. She denied any acute overnight events and denies any acute complaints today. She admits to passing gas, and having a BM yesterday and denies fever, chills, nausea, vomiting. She states her abdominal pain is tolerable with the pain medication. Objective - Vital Signs/Intake and Output Vital Signs (last 24 hours): Temp Pulse Resp BP Pulse Ox 98 F 71 20 135/82 97 03/26/18 07:37 03/26/18 07:37 03/26/18 07:37 03/26/18 07:37 03/26/18 07:37 Intake and Output: 03/26/18 03/26/18 06:59 18:59 Intake Total 550 Output Total 20 Balance 530 - Medications Medications: Current Medications Carvedilol (Coreg) 3.125 mg PO BID [facility] Last Admin: 03/25/18 18:00 Dose: 3.125 mg Docusate Sodium (Colace) 100 mg PO BID [facility] Last Admin: 03/25/18 18:01 Dose: Not Given Enoxaparin Sodium (Lovenox) 40 mg SC Q12H [facility] Last Admin: 03/25/18 22:08 Dose: 40 mg Ferrous Sulfate (Feosol) 324 mg PO BID [facility] Last Admin: 03/25/18 18:01 Dose: 324 mg Hydrochlorothiazide (Microzide) 12.5 mg PO DAILY [facility] Last Admin: 03/25/18 09:57 Dose: 12.5 mg Meropenem (Merrem Iv 1 Gm Premix) 50 mls @ 100 mls/hr IVPB Q12 [facility] PRN Reason: Protocol Stop: 03/28/18 22:34 Last Admin: 03/25/18 22:08 Dose: 100 mls/hr Insulin Human Regular (Humulin R Med) 0 units SC ACHS [facility] PRN Reason: Protocol Last Admin: 03/26/18 07:42 Dose: Not Given Linezolid (Zyvox) 600 mg PO BID [facility] PRN Reason: Protocol Last Admin: 03/25/18 18:00 Dose: 600 mg Lisinopril (Zestril) 10 mg PO DAILY [facility] Last Admin: 03/25/18 09:56 Dose: 10 mg Non-Formulary Medication (Fluticasone Furoate [Arnuity Ellipta]) 1 puff IH 0700 [facility] Last Admin: 03/26/18 07:42 Dose: Not Given Non-Formulary Medication (Folic Acid [Fa-8]) 0.8 mg PO DAILY [facility] Last Admin: 03/25/18 09:57 Dose: 0.8 mg Non-Formulary Medication (Umeclidinium Brm/Vilanterol Tr [Anoro Ellipta 62.5-25 Mcg Inh]) 1 puff IH 0700 [facility] Last Admin: 03/26/18 07:43 Dose: Not Given Non-Formulary Medication (Vitamin B Complex [Super B-50 Complex]) 1 cap PO DAILY [facility] Last Admin: 03/25/18 09:58 Dose: Not Given Ondansetron HCl (Zofran Inj) 4 mg IVP ONCE PRN PRN Reason: Nausea/Vomiting Oxycodone HCl (Oxycodone Immediate Release Tab) 5 mg PO Q6H PRN PRN Reason: Pain, moderate (4-7) Last Admin: 03/25/18 22:08 Dose: 5 mg - Labs Labs: 03/26/18 05:45 03/26/18 05:45 PT 16.8 SECONDS (9.4-12.5) H 03/21/18 07:00 INR 1.45 (0.93-1.08) H 03/21/18 07:00 APTT 29.0 Seconds (25.1-36.5) 03/21/18 07:00 - Constitutional Appears: Well, Toxic, No Acute Distress - Head Exam Head Exam: ATRAUMATIC, NORMOCEPHALIC - Eye Exam Eye Exam: EOMI, Normal appearance - Respiratory Exam Respiratory Exam: NORMAL BREATHING PATTERN. absent: Accessory Muscle Use, Respiratory Distress - Cardiovascular Exam Cardiovascular Exam: REGULAR RHYTHM - GI/Abdominal Exam GI & Abdominal Exam: Soft, Tenderness (Present in the LLQ localized to the wound.), Normal Bowel Sounds. absent: Distended, Firm, Guarding, Rigid - Skin Skin Exam: Dry, Intact, Normal Color, Warm. absent: Cyanosis, Petechiae Additional comments: Except where noted below. Wound is 15 cm x 8 x 2. Wound vac is currently placed over wound, and seal and suction are both functional. No warmth or purulence noted next to wound or around wound vac. Assessment and Plan - Assessment and Plan (Free Text) Assessment: Pt is a 57 yo F who presented with a large LLQ paanus with a non-healing wound, s/p debridement and wound vac placement. POD #4 Plan: - Wound vac changed 03/25/18, seal is holding and suction is on. - Will schedule for OR debridement - NPO past midnight on sunday evening - Will order coags before pt goes down to OR. - Pt tolerating diet - Continue Antibiotics - Discussed with Dr. Hassan
--- NOTE | 2018-03-26 14:47 | PN ---
DATE: 03/26/2018 CARDIOLOGY FOLLOWUP SUBJECTIVE: The patient is without shortness of breath. PHYSICAL EXAMINATION: VITAL SIGNS: .Blood pressure is 135/82, the heart rate in the 70s. NECK: Negative JVD. LUNGS: Without rales. HEART: Reveals S1, S2. EXTREMITIES: Without edema. LABORATORY DATA: Hemoglobin is 12.3. Chemistries: BUN and creatinine are unremarkable, potassium is 3.9. IMPRESSION: 1. Infection of the abdominal wall. 2. Dilated cardiomyopathy. 3. History of pulmonary embolism in the past. 4. Hypertension. 5. Diabetes mellitus. 6. Chronic obstructive pulmonary disease. PLAN: Given these findings, the patient remains hemodynamically stable. We will continue wound care. Florian Nguyễn MD
[2018-03-27 06:24] LABS: BASO # 0.03 K/mm3 (0.0-2.0); BASO % 0.5 % (0.0-3.0); EOS # 0.3 (0.0-0.7); EOS % 4.2 % (1.5-5.0); GRAN # 3.49 (1.4-6.5); GRAN % 54.3 % (50.0-68.0); HEMOGLOBIN 11.9 g/dL (12.0-16.0); LYMPH # 1.9 (1.2-3.4); LYMPH % 29.8 % (22.0-35.0); MEAN CORPUSCULAR HEMOGLOBIN 28.2 pg (25.0-35.0); MEAN CORPUSCULAR HGB CONC 32.4 g/dl (31.0-37.0); MEAN PLATELET VOLUME 9.3 fl (7.0-11.0); MONO # 0.7 (0.1-0.6); MONO % 11.2 % (1.0-6.0); RBC 4.22 10^6/uL (3.5-6.1); RED CELL DISTRIBUTION WIDTH 15.4 % (11.5-14.5); WHITE BLOOD COUNT 6.4 10^3/ul (4.5-11.0)
[2018-03-27 06:34] LABS: INR 1.22 (0.93-1.08); PARTIAL THROMBOPLASTIN TIME 32.5 Seconds (25.1-36.5); PROTHROMBIN TIME 14.1 SECONDS (9.4-12.5)
[2018-03-27 07:04] LABS: ALB/GLOB RATIO 0.9 (1.1-1.8); ALBUMIN 3.1 g/dL (3.0-4.8); ALT/SGPT 28 U/L (7-56); AST/SGOT 27 U/L (14-36); BLOOD UREA NITROGEN 27 mg/dL (7-21); CALCIUM 8.7 mg/dL (8.4-10.5); GFR AFRICAN-AMERICAN > 60; GFR NON-AFRICAN AMERICAN > 60
[2018-03-27] MEDS: Non Formulary Medication (Fluticasone Furoate [Arnuity Ellipta] 1 PUFF) IH SCH (08:25)
[2018-03-27] MEDS: Insulin Reg-MEDIUM-Coverage SC SCH ×4 (08:25→21:48)
--- NOTE | 2018-03-27 09:31 | PN ---
SUBJECTIVE: The patient was seen and examined at bedside in the remote telemetry hinkle. No acute events overnight. She is pending repeat OR debridement of her abdominal wound tomorrow. OBJECTIVE: VITAL SIGNS: Temperature 97.2, pulse 71, blood pressure 116/83, respiratory rate 17, oxygen saturation 97% on room air. GENERAL: Morbidly obese woman, lying in bed, in no apparent distress. HEENT: PERRL, EOMI. No scleral icterus, no conjunctival pallor. NECK: No JVD. LUNGS: Clear to auscultation. CARDIOVASCULAR: Regular rate and rhythm. Normal S1 and S2. ABDOMEN: Obese. Normoactive bowel sounds. Soft, nontender, nondistended. Surgical dressing and wound VAC in place. EXTREMITIES: Trace lower extremity edema bilaterally. NEUROLOGIC: Awake, alert and oriented x 3. No focal motor deficits. LABORATORY DATA: CBC reviewed and unremarkable. CMP reviewed and unremarkable. ASSESSMENT: The patient is a 57 year old woman with multiple medical comorbidities including morbid obesity and a chronic nonhealing abdominal wall wound who presented for electively scheduled surgical intervention and is now s/p OR debridement s/p wound VAC and pending repeat OR debridement tomorrow. PLAN: 1. Cellulitis of the abdominal wall with stage II pressure ulcer s/p OR debridement s/p wound VAC. Continue with postoperative care and local wound care as per Dr. Hassan and the surgical team. She is scheduled for repeat OR debridement tomorrow. Input from Dr. Ross appreciated and the patient remains on Meropenem and Linezolid. 2. Dilated cardiomyopathy with an EF of 30%. Continue with current medications. She remains on therapeutic Lovenox and will be restarted on Coumadin when okay from surgical standpoint and when no further surgical intervention is planned. 3. History of DVT and PE s/p IVC filter. As above, we will resume oral anticoagulation therapy when okay from the surgical standpoint and in the interim will continue with therapeutic Lovenox. 4. Hypertension. BP controlled. Continue current medications. 5. Iron deficiency anemia. H/H remains stable. Continue Feosol 324 mg p.o. b.i.d. 6. NIDDM. Continue medium dose insulin sliding scale for coverage. 7. Anxiety disorder. Continue Xanax 0.25 mg p.o. daily. 8. COPD. Continue supplemental oxygen and bronchodilators as needed. 9. Morbid obesity. 10. Prophylaxis. GI prophylaxis is not indicated as patient is eating. She remains on Lovenox thus DVT prophylaxis not indicated. CODE STATUS: Full code. Jorge Nguyen MD MTDD
--- NOTE | 2018-03-27 10:58 | CP.PCM.PN ---
Subjective - Date & Time of Evaluation Date of Evaluation: 03/27/18 Time of Evaluation: 10:54 - Subjective Subjective: General Surgery Progress Note for: Dr. Hassan Pt was seen and examined this morning at bedside. She denies any acute overnight events, or any acute complaints at this time. She admits to passing gas and having a BM. She continues to deny fever, chills, nausea or vomiting. She states that her abdominal pain is well controlled. Objective - Vital Signs/Intake and Output Vital Signs (last 24 hours): Temp Pulse Resp BP Pulse Ox 97.6 F 81 19 132/84 95 03/27/18 07:45 03/27/18 07:45 03/27/18 07:45 03/27/18 07:45 03/27/18 07:45 Intake and Output: 03/27/18 03/27/18 06:59 18:59 Intake Total 600 Balance 600 - Medications Medications: Current Medications Carvedilol (Coreg) 3.125 mg PO BID [facility] Last Admin: 03/26/18 17:27 Dose: 3.125 mg Docusate Sodium (Colace) 100 mg PO BID [facility] Last Admin: 03/26/18 17:27 Dose: 100 mg Enoxaparin Sodium (Lovenox) 40 mg SC Q12H [facility] Last Admin: 03/26/18 21:52 Dose: 40 mg Ferrous Sulfate (Feosol) 324 mg PO BID [facility] Last Admin: 03/26/18 17:27 Dose: 324 mg Hydrochlorothiazide (Microzide) 12.5 mg PO DAILY [facility] Last Admin: 03/26/18 10:48 Dose: 12.5 mg Meropenem (Merrem Iv 1 Gm Premix) 50 mls @ 100 mls/hr IVPB Q12 [facility] PRN Reason: Protocol Stop: 03/28/18 22:34 Last Admin: 03/26/18 21:52 Dose: 100 mls/hr Insulin Human Regular (Humulin R Med) 0 units SC ACHS [facility] PRN Reason: Protocol Last Admin: 03/27/18 08:25 Dose: Not Given Linezolid (Zyvox) 600 mg PO BID [facility] PRN Reason: Protocol Last Admin: 03/26/18 17:27 Dose: 600 mg Lisinopril (Zestril) 10 mg PO DAILY [facility] Last Admin: 03/26/18 10:48 Dose: 10 mg Non-Formulary Medication (Fluticasone Furoate [Arnuity Ellipta]) 1 puff IH 0700 [facility] Last Admin: 03/27/18 08:25 Dose: Not Given Non-Formulary Medication (Folic Acid [Fa-8]) 0.8 mg PO DAILY [facility] Last Admin: 03/26/18 10:51 Dose: Not Given Non-Formulary Medication (Umeclidinium Brm/Vilanterol Tr [Anoro Ellipta 62.5-25 Mcg Inh]) 1 puff IH 0700 [facility] Last Admin: 03/26/18 07:43 Dose: Not Given Non-Formulary Medication (Vitamin B Complex [Super B-50 Complex]) 1 cap PO DAILY [facility] Last Admin: 03/26/18 10:50 Dose: Not Given Ondansetron HCl (Zofran Inj) 4 mg IVP ONCE PRN PRN Reason: Nausea/Vomiting Oxycodone HCl (Oxycodone Immediate Release Tab) 5 mg PO Q6H PRN PRN Reason: Pain, moderate (4-7) Last Admin: 03/26/18 22:53 Dose: 5 mg - Labs Labs: 03/27/18 05:30 03/27/18 05:30 PT 14.1 SECONDS (9.4-12.5) H 03/27/18 05:30 INR 1.22 (0.93-1.08) H 03/27/18 05:30 APTT 32.5 Seconds (25.1-36.5) 03/27/18 05:30 - Constitutional Appears: Well, Non-toxic, No Acute Distress - Head Exam Head Exam: ATRAUMATIC, NORMOCEPHALIC - Eye Exam Eye Exam: EOMI, Normal appearance - Respiratory Exam Respiratory Exam: Clear to Ausculation Bilateral, NORMAL BREATHING PATTERN - Cardiovascular Exam Cardiovascular Exam: REGULAR RHYTHM - GI/Abdominal Exam GI & Abdominal Exam: Soft, Normal Bowel Sounds. absent: Distended, Firm, Guarding, Rigid Additional comments: Wound vac is placed over her 15x8x2 cm wound. Wound vac suction is functional and seal is holding. - Neurological Exam Neurological Exam: Alert, Awake, Oriented x3 - Psychiatric Exam Psychiatric exam: Normal Affect, Normal Mood - Skin Skin Exam: Dry, Intact, Normal Color, Warm Additional comments: except for wound detailed above. No erythema or purulence noted to be surrounding wound vac. Assessment and Plan - Assessment and Plan (Free Text) Assessment: Pt is a 57 yo F who presented with a large LLQ paanus with a non-healing wound, s/p debridement and wound vac placement. POD #5 Plan: - Wound vac changed 03/25/18, functioning properly. - Scheduled and consented for OR debridement - NPO past midnight this evening - Lovenox held for before OR - Coags obtained this AM. INR = 1.22, PTT = 32.5 - Pt tolerating diet - Continue Antibiotics - Further recs per Dr. Hassan
[2018-03-27] MEDS: Non Formulary Medication (Vitamin B Complex [Super B-50 Complex] 1 CAP) PO SCH (11:00)
--- NOTE | 2018-03-27 11:04 | CP.PCM.PN ---
Subjective - Date & Time of Evaluation Date of Evaluation: 03/27/18 Time of Evaluation: 09:15 - Subjective Subjective: For debridement tomorrow, no fevers, not in distress, no increased pain in the abdomen. Objective - Vital Signs/Intake and Output Vital Signs (last 24 hours): Temp Pulse Resp BP Pulse Ox 97.6 F 81 19 132/84 95 03/27/18 07:45 03/27/18 07:45 03/27/18 07:45 03/27/18 07:45 03/27/18 07:45 Intake and Output: 03/27/18 03/27/18 06:59 18:59 Intake Total 600 Balance 600 - Medications Medications: Current Medications Carvedilol (Coreg) 3.125 mg PO BID [facility] Last Admin: 03/26/18 17:27 Dose: 3.125 mg Docusate Sodium (Colace) 100 mg PO BID [facility] Last Admin: 03/26/18 17:27 Dose: 100 mg Enoxaparin Sodium (Lovenox) 40 mg SC Q12H [facility] Last Admin: 03/26/18 21:52 Dose: 40 mg Ferrous Sulfate (Feosol) 324 mg PO BID [facility] Last Admin: 03/26/18 17:27 Dose: 324 mg Hydrochlorothiazide (Microzide) 12.5 mg PO DAILY [facility] Last Admin: 03/26/18 10:48 Dose: 12.5 mg Meropenem (Merrem Iv 1 Gm Premix) 50 mls @ 100 mls/hr IVPB Q12 [facility] PRN Reason: Protocol Stop: 03/28/18 22:34 Last Admin: 03/26/18 21:52 Dose: 100 mls/hr Insulin Human Regular (Humulin R Med) 0 units SC ACHS [facility] PRN Reason: Protocol Last Admin: 03/27/18 08:25 Dose: Not Given Linezolid (Zyvox) 600 mg PO BID [facility] PRN Reason: Protocol Last Admin: 03/26/18 17:27 Dose: 600 mg Lisinopril (Zestril) 10 mg PO DAILY [facility] Last Admin: 03/26/18 10:48 Dose: 10 mg Non-Formulary Medication (Fluticasone Furoate [Arnuity Ellipta]) 1 puff IH 0700 [facility] Last Admin: 03/27/18 08:25 Dose: Not Given Non-Formulary Medication (Folic Acid [Fa-8]) 0.8 mg PO DAILY [facility] Last Admin: 03/26/18 10:51 Dose: Not Given Non-Formulary Medication (Umeclidinium Brm/Vilanterol Tr [Anoro Ellipta 62.5-25 Mcg Inh]) 1 puff IH 0700 [facility] Last Admin: 03/26/18 07:43 Dose: Not Given Non-Formulary Medication (Vitamin B Complex [Super B-50 Complex]) 1 cap PO DAILY [facility] Last Admin: 03/26/18 10:50 Dose: Not Given Ondansetron HCl (Zofran Inj) 4 mg IVP ONCE PRN PRN Reason: Nausea/Vomiting Oxycodone HCl (Oxycodone Immediate Release Tab) 5 mg PO Q6H PRN PRN Reason: Pain, moderate (4-7) Last Admin: 03/26/18 22:53 Dose: 5 mg - Labs Labs: 03/27/18 05:30 03/27/18 05:30 PT 14.1 SECONDS (9.4-12.5) H 03/27/18 05:30 INR 1.22 (0.93-1.08) H 03/27/18 05:30 APTT 32.5 Seconds (25.1-36.5) 03/27/18 05:30 - Constitutional Appears: Non-toxic, Chronically Ill - Head Exam Head Exam: NORMAL INSPECTION - Neck Exam Neck Exam: absent: Meningismus - Respiratory Exam Respiratory Exam: Decreased Breath Sounds - Cardiovascular Exam Cardiovascular Exam: +S1, +S2 - GI/Abdominal Exam GI & Abdominal Exam: Soft. absent: Tenderness Additional comments: wound vacuum in place Assessment and Plan - Assessment and Plan (Free Text) Plan: Assessment abdominal wound infection with panniculitis S/P debridement and wound vacuum placement, growing VRE and E. coli, R/O pyoderma gangrenosum history of acute pulmonary embolism, on anticoagulation HTN DM morbid obesity with BMI 44 Plan on Zyvox and Merrem day 7 - follow up OR pathologies - for debridement again tomorrow
[2018-03-27] MEDS: Meropenem IV 1 gm in NS 50 ML IVPB SCH ×2 (11:28→21:48)
[2018-03-27] MEDS: oxyCODONE 5 mg Immediate Release Tab PO PRN ×2 (11:29→17:17)
[2018-03-27] MEDS: Enoxaparin 40 mg Syringe SC SCH ×2 (11:29→21:48)
[2018-03-27] MEDS: Non Formulary Medication (Umeclidinium Brm/Vilanterol Tr [Anoro Ellipta 62.5-25 Mcg Inh] 1 IH SCH (11:30)
[2018-03-27] MEDS: FOLIC ACID 0.8 MG PO SCH (11:30)
--- NOTE | 2018-03-27 13:23 | PN ---
DATE: 03/27/2018 CARDIOLOGY FOLLOWUP SUBJECTIVE: The patient is in no acute distress other than anxiety. OBJECTIVE: VITAL SIGNS: Blood pressure is 130/80, heart rate is in the 80s. NECK: Negative JVD. LUNGS: Without rales. HEART: Reveal S1, S2. EXTREMITIES: Without edema. DATA: Hemoglobin is 11.9. Chemistries: BUN and creatinine unremarkable. Glucose is 118. IMPRESSION: 1. Continued debridement of abdominal wound. 2. Dilated cardiomyopathy. 3. History of pulmonary embolism in the past. 4. Diabetes mellitus. 5. Hypertension. 6. Chronic obstructive pulmonary disease. Given these findings, the patient remains hemodynamically stable. The patient is for the OR tomorrow. Florian Nguyễn MD
[2018-03-28] MEDS: oxyCODONE 5 mg Immediate Release Tab PO PRN ×2 (04:30→20:30)
[2018-03-28 06:25] LABS: BASO # 0.02 K/mm3 (0.0-2.0); BASO % 0.3 % (0.0-3.0); EOS # 0.2 (0.0-0.7); EOS % 3.7 % (1.5-5.0); GRAN # 3.58 (1.4-6.5); GRAN % 56.9 % (50.0-68.0); HEMOGLOBIN 12.3 g/dL (12.0-16.0); LYMPH # 1.9 (1.2-3.4); LYMPH % 29.9 % (22.0-35.0); MEAN CELL VOLUME 86.9 fl (80.0-105.0); MEAN CORPUSCULAR HEMOGLOBIN 28.7 pg (25.0-35.0); MEAN PLATELET VOLUME 9.3 fl (7.0-11.0); MONO # 0.6 (0.1-0.6); MONO % 9.2 % (1.0-6.0); RBC 4.29 10^6/uL (3.5-6.1); RED CELL DISTRIBUTION WIDTH 15.3 % (11.5-14.5); WHITE BLOOD COUNT 6.3 10^3/ul (4.5-11.0)
[2018-03-28 07:04] LABS: ALB/GLOB RATIO 0.8 (1.1-1.8); ALT/SGPT 18 U/L (7-56); AST/SGOT 18 U/L (14-36); BLOOD UREA NITROGEN 29 mg/dL (7-21); GFR AFRICAN-AMERICAN > 60; GFR NON-AFRICAN AMERICAN > 60
[2018-03-28] MEDS: Insulin Reg-MEDIUM-Coverage SC SCH ×4 (09:46→21:48)
--- NOTE | 2018-03-28 10:21 | PN ---
SUBJECTIVE: The patient was seen and examined at the bedside in the remote telemetry hinkle. No acute events overnight. She remains afebrile, hemodynamically stable and is pending OR debridement later today. OBJECTIVE: VITAL SIGNS: Temperature 97.5, pulse 85, blood pressure 141/92, respiratory rate 20, oxygen saturation 96% on room air. GENERAL: Morbidly obese woman, lying in bed, in no apparent distress. HEENT: PERRL. EOMI. No scleral icterus. No conjunctival pallor. NECK: No JVD. LUNGS: Clear to auscultation. CARDIOVASCULAR: Regular rate and rhythm. Normal S1 and S2. ABDOMEN: Obese, normoactive bowel sounds, soft, nontender, nondistended. Surgical dressing and wound VAC in place. EXTREMITIES: Trace lower extremity edema bilaterally. NEUROLOGIC: Awake, alert and oriented x 3. No focal motor deficits. LABORATORY DATA: CBC reviewed and unremarkable. CMP reviewed and unremarkable. ASSESSMENT: The patient is a 57 year old woman with multiple medical comorbidities including morbid obesity and a chronic nonhealing abdominal wall wound who presented for electively scheduled surgical intervention and is now s/p OR debridement s/p wound VAC and pending repeat OR debridement today. PLAN: 1. Cellulitis of the abdominal wall with stage II pressure ulcer s/p OR debridement s/p wound VAC. Continue with postoperative care and local wound care as per Dr. Hassan and the surgical team. She is pending repeat OR debridement today. Input from Dr. Ross appreciated and the patient remains on Meropenem and Linezolid. 2. Dilated cardiomyopathy with an EF of 30%. Continue with current medications. She remains on therapeutic Lovenox and will be restarted on Coumadin when okay from surgical standpoint. 3. History of DVT and PE s/p IVC filter. As above we will resume oral anticoagulation therapy when okay from surgical standpoint. 4. Hypertension. BP controlled. Continue current medications. 5. Iron deficiency anemia. H/H remains stable. Continue Feosol 324 mg p.o. b.i.d. 6. NIDDM. Continue medium dose insulin sliding scale for coverage. 7. Anxiety disorder. Continue Xanax 0.25 mg p.o. daily. 8. COPD. Continue supplemental oxygen and bronchodilators as needed. 9. Morbid obesity. 10. Prophylaxis. GI prophylaxis is not indicated as the patient is eating. She remains on Lovenox thus DVT prophylaxis not indicated. CODE STATUS: Full code. Jorge Nguyen MD [facility]
[2018-03-28] MEDS ORDERED: Propofol 10 mg/ml Inj (20 ML) ONE (10:38)
[2018-03-28] MEDS ORDERED: Midazolam 2 MG/2 ML VIAL ONE (10:38)
[2018-03-28] MEDS ORDERED: Rocuronium 10 mg/ml (5 ml) ONE (10:41)
[2018-03-28] MEDS ORDERED: Methylene Blue 10 mg/mL(10ml) IV ONE (10:49)
[2018-03-28] MEDS ORDERED: Sevoflurane - Inhalation Anesthetic Liq (250 ml) ONE (10:53)
[2018-03-28] MEDS ORDERED: HYDROmorphone 0.5 mg/0.5 ml ISec IVP PRN (11:24)
--- NOTE | 2018-03-28 11:26 | PCM.SURG1 ---
Surgeon's Initial Post Op Note - Surgeon's Notes Surgeon: Dr. Hassan Field Support Rep: Lorelei Prieto, PGY 3, Isamar Zaldivar, PGY 1, Giovanny Connelly, MS3 Type of Anesthesia: IV Sedation Pre-Operative Diagnosis: Left lower abdomen panniculitis Operative Findings: 10 cm lateral x 4 cm vertical x 2 cm deep wound with 1.5 cm undermining circumferentially, necrotic tissue at the base, adequate hemostasis obtained via cautery Post-Operative Diagnosis: same Operation Performed: debridement of left abdominal pannus wound with wound vac placement Specimen/Specimens Removed: debrided tissue Estimated Blood Loss: EBL {In ML}: 5 Blood Products Given: N/A Drains Used: Wound Vac Date of Surgery/Procedure: 03/28/18 Time of Surgery/Procedure: 10:50
[2018-03-28] MEDS ORDERED: Lactated Ringer's 1,000 ML IV SCH (11:30)
[2018-03-28] MEDS: Enoxaparin 40 mg Syringe SC SCH ×2 (12:36→21:48)
--- NOTE | 2018-03-28 12:51 | CP.PCM.PN ---
Subjective - Date & Time of Evaluation Date of Evaluation: 03/28/18 Time of Evaluation: 08:55 - Subjective Subjective: Patient is resting comfortably in bed, no fevers. Objective - Vital Signs/Intake and Output Vital Signs (last 24 hours): Temp Pulse Resp BP Pulse Ox 97.5 F L 85 20 141/92 H 96 03/28/18 07:53 03/28/18 07:53 03/28/18 07:53 03/28/18 07:53 03/28/18 07:53 Intake and Output: 03/28/18 03/28/18 06:59 18:59 Intake Total 100 Balance 100 - Medications Medications: Current Medications Carvedilol (Coreg) 3.125 mg PO BID [facility] Last Admin: 03/27/18 17:18 Dose: 3.125 mg Docusate Sodium (Colace) 100 mg PO BID [facility] Last Admin: 03/27/18 17:17 Dose: 100 mg Enoxaparin Sodium (Lovenox) 40 mg SC Q12H [facility] Last Admin: 03/27/18 21:48 Dose: 40 mg Ferrous Sulfate (Feosol) 324 mg PO BID [facility] Last Admin: 03/27/18 17:18 Dose: 324 mg Hydrochlorothiazide (Microzide) 12.5 mg PO DAILY [facility] Last Admin: 03/27/18 11:28 Dose: 12.5 mg Meropenem (Merrem Iv 1 Gm Premix) 50 mls @ 100 mls/hr IVPB Q12 [facility] PRN Reason: Protocol Stop: 03/28/18 22:34 Last Admin: 03/27/18 21:48 Dose: 100 mls/hr Insulin Human Regular (Humulin R Med) 0 units SC ACHS [facility] PRN Reason: Protocol Last Admin: 03/27/18 21:48 Dose: Not Given Linezolid (Zyvox) 600 mg PO BID [facility] PRN Reason: Protocol Last Admin: 03/27/18 17:18 Dose: 600 mg Lisinopril (Zestril) 10 mg PO DAILY [facility] Last Admin: 03/27/18 11:28 Dose: 10 mg Non-Formulary Medication (Fluticasone Furoate [Arnuity Ellipta]) 1 puff IH 0700 [facility] Last Admin: 03/27/18 08:25 Dose: Not Given Non-Formulary Medication (Folic Acid [Fa-8]) 0.8 mg PO DAILY [facility] Last Admin: 03/27/18 11:30 Dose: Not Given Non-Formulary Medication (Umeclidinium Brm/Vilanterol Tr [Anoro Ellipta 62.5-25 Mcg Inh]) 1 puff IH 0700 [facility] Last Admin: 03/27/18 11:30 Dose: Not Given Non-Formulary Medication (Vitamin B Complex [Super B-50 Complex]) 1 cap PO DAILY [facility] Last Admin: 03/27/18 11:00 Dose: Not Given Ondansetron HCl (Zofran Inj) 4 mg IVP ONCE PRN PRN Reason: Nausea/Vomiting Oxycodone HCl (Oxycodone Immediate Release Tab) 5 mg PO Q6H PRN PRN Reason: Pain, moderate (4-7) Last Admin: 03/28/18 04:30 Dose: 5 mg - Labs Labs: 03/28/18 05:45 03/28/18 05:45 PT 14.1 SECONDS (9.4-12.5) H 03/27/18 05:30 INR 1.22 (0.93-1.08) H 03/27/18 05:30 APTT 32.5 Seconds (25.1-36.5) 03/27/18 05:30 - Constitutional Appears: Non-toxic - Respiratory Exam Respiratory Exam: Decreased Breath Sounds - Cardiovascular Exam Cardiovascular Exam: +S1, +S2 - GI/Abdominal Exam GI & Abdominal Exam: Soft. absent: Tenderness Additional comments: wound vacuum in place Assessment and Plan - Assessment and Plan (Free Text) Plan: Assessment abdominal wound infection with panniculitis S/P debridement and wound vacuum placement, growing VRE and E. coli, R/O pyoderma gangrenosum history of acute pulmonary embolism, on anticoagulation HTN DM morbid obesity with BMI 44 Plan on Zyvox and Merrem day 8 - follow up OR pathologies - for debridement again today and will follow up findings and result
[2018-03-28] MEDS: FOLIC ACID 0.8 MG PO SCH (13:50)
[2018-03-28] MEDS: Non Formulary Medication (Fluticasone Furoate [Arnuity Ellipta] 1 PUFF) IH SCH (13:50)
[2018-03-28] MEDS: Meropenem IV 1 gm in NS 50 ML IVPB SCH ×2 (13:51→21:48)
[2018-03-28] MEDS: Non Formulary Medication (Umeclidinium Brm/Vilanterol Tr [Anoro Ellipta 62.5-25 Mcg Inh] 1 IH SCH (13:52)
[2018-03-28] MEDS: Non Formulary Medication (Vitamin B Complex [Super B-50 Complex] 1 CAP) PO SCH (13:52)
[2018-03-28 17:45] VITALS: O2SAT 95
[2018-03-29] MEDS: Non Formulary Medication (Umeclidinium Brm/Vilanterol Tr [Anoro Ellipta 62.5-25 Mcg Inh] 1 IH SCH (06:04)
[2018-03-29] MEDS: Non Formulary Medication (Fluticasone Furoate [Arnuity Ellipta] 1 PUFF) IH SCH ×2 (06:04→06:22)
[2018-03-29] MEDS: Meropenem IV 1 gm in NS 50 ML IVPB SCH ×2 (06:24→14:21)
[2018-03-29] MEDS: oxyCODONE 5 mg Immediate Release Tab PO PRN ×2 (06:25→14:21)
[2018-03-29 06:37] LABS: BASO # 0.03 K/mm3 (0.0-2.0); BASO % 0.4 % (0.0-3.0); EOS # 0.2 (0.0-0.7); EOS % 3.3 % (1.5-5.0); GRAN # 4.26 (1.4-6.5); GRAN % 61.5 % (50.0-68.0); LYMPH # 1.8 (1.2-3.4); LYMPH % 25.6 % (22.0-35.0); MEAN CELL VOLUME 87.6 fl (80.0-105.0); MEAN CORPUSCULAR HEMOGLOBIN 28.7 pg (25.0-35.0); MEAN CORPUSCULAR HGB CONC 32.7 g/dl (31.0-37.0); MEAN PLATELET VOLUME 9.1 fl (7.0-11.0); MONO # 0.6 (0.1-0.6); MONO % 9.2 % (1.0-6.0); RBC 4.53 10^6/uL (3.5-6.1); RED CELL DISTRIBUTION WIDTH 15.4 % (11.5-14.5); WHITE BLOOD COUNT 6.9 10^3/ul (4.5-11.0)
[2018-03-29 07:02] LABS: ALB/GLOB RATIO 0.9 (1.1-1.8); ALBUMIN 3.5 g/dL (3.0-4.8); ALT/SGPT 22 U/L (7-56); AST/SGOT 29 U/L (14-36); BLOOD UREA NITROGEN 31 mg/dL (7-21); CALCIUM 9.1 mg/dL (8.4-10.5); GFR AFRICAN-AMERICAN > 60; GFR NON-AFRICAN AMERICAN > 60
[2018-03-29] MEDS: Insulin Reg-MEDIUM-Coverage SC SCH (09:09)
--- NOTE | 2018-03-29 09:38 | CP.PCM.PN ---
Subjective - Date & Time of Evaluation Date of Evaluation: 03/29/18 Time of Evaluation: 09:35 - Subjective Subjective: General Surgery Note for Dr. Hassan Pt was seen and examined this morning at bedside. She denies any acute overnight events. Admits that abd pain is controlled with pain medication. She denies any fevers, chills, nausea, vomiting, and denies any other acute complaints at this time. Objective - Vital Signs/Intake and Output Vital Signs (last 24 hours): Temp Pulse Resp BP Pulse Ox 97.6 F 84 19 124/80 95 03/29/18 06:00 03/29/18 06:00 03/29/18 06:00 03/29/18 06:00 03/29/18 06:00 Intake and Output: 03/29/18 03/29/18 06:59 18:59 Intake Total 520 Output Total 2 Balance 518 - Medications Medications: Current Medications Alprazolam (Xanax) 0.25 mg PO BID PRN; Protocol PRN Reason: Anxiety Stop: 04/05/18 10:01 Last Admin: 03/28/18 22:01 Dose: 0.25 mg Betamethasone/Clotrimazole (Lotrisone) 0 gm TOP BID [facility] Carvedilol (Coreg) 3.125 mg PO BID [facility] Last Admin: 03/28/18 17:06 Dose: 3.125 mg Docusate Sodium (Colace) 100 mg PO BID [facility] Last Admin: 03/28/18 17:06 Dose: Not Given Enoxaparin Sodium (Lovenox) 40 mg SC Q12H [facility] Last Admin: 03/28/18 21:48 Dose: 40 mg Ferrous Sulfate (Feosol) 324 mg PO BID [facility] Last Admin: 03/28/18 17:07 Dose: 324 mg Hydrochlorothiazide (Microzide) 12.5 mg PO DAILY [facility] Last Admin: 03/28/18 09:53 Dose: 12.5 mg Meropenem (Merrem Iv 1 Gm Premix) 50 mls @ 100 mls/hr IVPB Q8 [facility] PRN Reason: Protocol Stop: 04/06/18 14:01 Last Admin: 03/29/18 06:24 Dose: 100 mls/hr Insulin Human Regular (Humulin R Med) 0 units SC ACHS [facility] PRN Reason: Protocol Last Admin: 03/29/18 09:09 Dose: Not Given Linezolid (Zyvox) 600 mg PO BID [facility] PRN Reason: Protocol Last Admin: 03/28/18 17:07 Dose: 600 mg Lisinopril (Zestril) 10 mg PO DAILY [facility] Last Admin: 03/28/18 09:53 Dose: 10 mg Non-Formulary Medication (Fluticasone Furoate [Arnuity Ellipta]) 1 puff IH 0700 [facility] Last Admin: 03/29/18 06:22 Dose: Not Given Non-Formulary Medication (Folic Acid [Fa-8]) 0.8 mg PO DAILY [facility] Last Admin: 03/28/18 13:50 Dose: Not Given Non-Formulary Medication (Umeclidinium Brm/Vilanterol Tr [Anoro Ellipta 62.5-25 Mcg Inh]) 1 puff IH 0700 [facility] Last Admin: 03/29/18 06:04 Dose: Not Given Non-Formulary Medication (Vitamin B Complex [Super B-50 Complex]) 1 cap PO DAILY [facility] Last Admin: 03/28/18 13:52 Dose: Not Given Ondansetron HCl (Zofran Inj) 4 mg IVP ONCE PRN PRN Reason: Nausea/Vomiting Oxycodone HCl (Oxycodone Immediate Release Tab) 5 mg PO Q6H PRN PRN Reason: Pain, severe (8-10) Last Admin: 03/29/18 06:25 Dose: 5 mg - Labs Labs: 03/29/18 05:45 03/29/18 05:45 PT 14.1 SECONDS (9.4-12.5) H 03/27/18 05:30 INR 1.22 (0.93-1.08) H 03/27/18 05:30 APTT 32.5 Seconds (25.1-36.5) 03/27/18 05:30 - Constitutional Appears: Well, Non-toxic, No Acute Distress - Head Exam Head Exam: ATRAUMATIC, NORMOCEPHALIC - Eye Exam Eye Exam: EOMI, Normal appearance - Respiratory Exam Respiratory Exam: Clear to Ausculation Bilateral, NORMAL BREATHING PATTERN. absent: Accessory Muscle Use, Decreased Breath Sounds, Respiratory Distress - Cardiovascular Exam Cardiovascular Exam: REGULAR RHYTHM - GI/Abdominal Exam GI & Abdominal Exam: Soft, Normal Bowel Sounds. absent: Distended, Firm, Guarding, Rigid - Neurological Exam Neurological Exam: Alert, Awake, Oriented x3 - Psychiatric Exam Psychiatric exam: Normal Affect, Normal Mood - Skin Skin Exam: Dry, Intact, Normal Color, Warm Additional comments: Except for abdominal incision which is now 10cm w x4 x2 deep. There is no surrounding erythema or purulence around the wound vac and it is functioning well. Assessment and Plan - Assessment and Plan (Free Text) Assessment: Pt is a 57 yo F who presented with a large LLQ pannus with a non-healing wound, s/p repeat debridement and wound vac replacement. POD #1 Plan: - Wound vac changed in OR 7//18, continue on 125mmHg suction, no leak. Next wound vac change //18 - Will bring back next week for OR debridement and possible wound closure - Transfer to TCU today - Pt tolerating diet - Continue Antibiotics - Further recs per Dr. Hassan
[2018-03-29] MEDS ORDERED: Clotrimazole/Betamethasone Cream(15 gm) TOP SCH (10:00)
[2018-03-29] MEDS: FOLIC ACID 0.8 MG PO SCH (10:53)
[2018-03-29] MEDS: Enoxaparin 40 mg Syringe SC SCH (10:53)
--- NOTE | 2018-03-29 11:06 | PN ---
DATE: 03/29/2018 SUBJECTIVE: The patient is an obese 57-year-old female in room 369, bed 2. She has no specific complaints and there have been no acute events overnight. The patient underwent debridement of the abdominal wound yesterday. PHYSICAL EXAMINATION: VITAL SIGNS: Temperature of 97.6, pulse rate of 84, blood pressure of 124/80, respiratory rate of 19 with an O2 saturation of 95% on room air. HEENT: PERRLA. EOMI. No icterus is present. NECK: Supple with a full range of motion. LUNGS: Clear to auscultation and percussion bilaterally. HEART: Regular rate and rhythm, grade 2 to 3/6 systolic murmur at the lower left sternal border. ABDOMEN: Swathed in bandages. EXTREMITIES: Show no deformity. NEUROLOGIC: There are no focal motor deficits. LABORATORY VALUES: Today, CBC is within normal limits. Chemistry is also within normal limits with the exception of a glucose of 139. The patient will be continued on current intravenous antibiotics and will re undergo debridement early next week. CURRENT DIAGNOSES: Pulmonary embolism, cellulitis of the abdominal wall, open wound of the abdominal wall, hypoglycemia. Obi Nguyen MD
--- NOTE | 2018-03-29 12:15 | CP.PCM.PN ---
Subjective - Date & Time of Evaluation Date of Evaluation: 03/28/18 Time of Evaluation: 09:50 - Subjective Subjective: Had debridement yesterday, no fevers, feeling a little better, no diarrhea. Objective - Vital Signs/Intake and Output Vital Signs (last 24 hours): Temp Pulse Resp BP Pulse Ox 98.0 F 75 19 105/65 95 03/28/18 17:45 03/28/18 17:45 03/28/18 17:45 03/28/18 17:45 03/28/18 17:45 Intake and Output: 03/28/18 03/29/18 18:59 06:59 Intake Total 75 Balance 75 - Medications Medications: Current Medications Alprazolam (Xanax) 0.25 mg PO BID PRN; Protocol PRN Reason: Anxiety Stop: 04/05/18 10:01 Carvedilol (Coreg) 3.125 mg PO BID [facility] Last Admin: 03/28/18 17:06 Dose: 3.125 mg Docusate Sodium (Colace) 100 mg PO BID [facility] Last Admin: 03/28/18 17:06 Dose: Not Given Enoxaparin Sodium (Lovenox) 40 mg SC Q12H [facility] Last Admin: 03/28/18 12:36 Dose: Not Given Ferrous Sulfate (Feosol) 324 mg PO BID [facility] Last Admin: 03/28/18 17:07 Dose: 324 mg Hydrochlorothiazide (Microzide) 12.5 mg PO DAILY [facility] Last Admin: 03/28/18 09:53 Dose: 12.5 mg Meropenem (Merrem Iv 1 Gm Premix) 50 mls @ 100 mls/hr IVPB Q8 [facility] PRN Reason: Protocol Stop: 04/06/18 14:01 Last Admin: 03/28/18 13:51 Dose: 100 mls/hr Insulin Human Regular (Humulin R Med) 0 units SC ACHS [facility] PRN Reason: Protocol Last Admin: 03/28/18 21:48 Dose: Not Given Linezolid (Zyvox) 600 mg PO BID [facility] PRN Reason: Protocol Last Admin: 03/28/18 17:07 Dose: 600 mg Lisinopril (Zestril) 10 mg PO DAILY [facility] Last Admin: 03/28/18 09:53 Dose: 10 mg Non-Formulary Medication (Fluticasone Furoate [Arnuity Ellipta]) 1 puff IH 0700 [facility] Last Admin: 03/28/18 13:50 Dose: Not Given Non-Formulary Medication (Folic Acid [Fa-8]) 0.8 mg PO DAILY [facility] Last Admin: 03/28/18 13:50 Dose: Not Given Non-Formulary Medication (Umeclidinium Brm/Vilanterol Tr [Anoro Ellipta 62.5-25 Mcg Inh]) 1 puff IH 0700 [facility] Last Admin: 03/28/18 13:52 Dose: Not Given Non-Formulary Medication (Vitamin B Complex [Super B-50 Complex]) 1 cap PO DAILY [facility] Last Admin: 03/28/18 13:52 Dose: Not Given Ondansetron HCl (Zofran Inj) 4 mg IVP ONCE PRN PRN Reason: Nausea/Vomiting Oxycodone HCl (Oxycodone Immediate Release Tab) 5 mg PO Q6H PRN PRN Reason: Pain, severe (8-10) Last Admin: 03/28/18 20:30 Dose: 5 mg - Labs Labs: 03/28/18 05:45 03/28/18 05:45 PT 14.1 SECONDS (9.4-12.5) H 03/27/18 05:30 INR 1.22 (0.93-1.08) H 03/27/18 05:30 APTT 32.5 Seconds (25.1-36.5) 03/27/18 05:30 - Constitutional Appears: Chronically Ill - Head Exam Head Exam: NORMAL INSPECTION - ENT Exam ENT Exam: Mucous Membranes Moist - Neck Exam Neck Exam: absent: Lymphadenopathy, Meningismus - Respiratory Exam Respiratory Exam: Decreased Breath Sounds - Cardiovascular Exam Cardiovascular Exam: +S1, +S2 - GI/Abdominal Exam GI & Abdominal Exam: Soft. absent: Tenderness Assessment and Plan - Assessment and Plan (Free Text) Plan: Assessment abdominal wound infection with panniculitis S/P debridement and wound vacuum placement, growing VRE and E. coli, R/O pyoderma gangrenosum history of acute pulmonary embolism, on anticoagulation HTN DM morbid obesity with BMI 44 Plan on Zyvox and Merrem day 9 - follow up OR pathologies - S/P debridement again yesterday
--- NOTE | 2018-03-29 14:25 | PN ---
DATE: 03/29/2018 CARDIOLOGY FOLLOWUP SUBJECTIVE: The patient is comfortable without shortness of breath, without chest pain. PHYSICAL EXAMINATION VITAL SIGNS: Blood pressure is 124/80, the heart rate is in the 80s. NECK: Negative JVD. LUNGS: Without rales. HEART: Reveals S1 and S2. EXTREMITIES: Without edema. LABORATORY DATA: BUN and creatinine are unremarkable. Glucose is 134, white count is 6.9. IMPRESSION: 1. The patient tolerated debridement of her abdominal wound. 2. Dilated cardiomyopathy. 3. History of pulmonary embolism. 4. Diabetes mellitus. 5. Hypertension. 6. Chronic obstructive pulmonary disease. PLAN: Given these findings, the patient will need anticoagulation as soon as her wound is improved. Florian Nguyễn MD
[2018-03-29 17:50] VITALS: BP 131/80; PULSE 80; RESP 20; TEMP 98.3
--- NOTE | 2018-04-01 11:58 | DS ---
ADMITTING DIAGNOSIS: Cellulitis of the abdominal wall with stage II pressure ulcer. DISCHARGE DIAGNOSES: Cellulitis of the abdominal wall with stage II pressure ulcer s/p OR debridement s/p wound VAC. SECONDARY DIAGNOSES: Morbid obesity, dilated cardiomyopathy, hypertension, iron-deficiency anemia, [id number] diabetes mellitus, anxiety disorder and history of provoked DVT and PE s/p IVC filter. CONSULTATIONS: Dr. Gambino (Infectious Disease), Dr. Hassan (General Surgery) and Dr. Nguyễn (Cardiology). IMAGING STUDIES: Chest x-ray demonstrated no acute pathology. PROCEDURES: Operating room debridement of the left lower quadrant abdominal wall wound and placement of wound vacuum-assisted closure. HISTORY OF PRESENT ILLNESS: The patient is a 57 year old woman with multiple medical comorbidities including morbid obesity and a chronic nonhealing stage II pressure ulcer to the left lower quadrant of the abdominal wall who presented for electively scheduled surgical debridement. The patient has been closely followed by Dr. Hassan and the [facility] team [facility] for several months for management of the aforementioned wound. She was admitted for elective surgical debridement and attempt at wound closure. HOSPITAL COURSE: The patient was admitted to the remote telemetry hinkle and had a largely unremarkable hospitalization. She was evaluated by Dr. Nguyễn preoperatively given her underlying dilated cardiomyopathy and after optimization she was taken to the OR for multiple debridements and wound vac placement. She was also seen by Dr. Gambino of [facility] and placed on Linezolid and Merrem. After several days on the medical hinkle she was found to be deconditioned and as such was evaluated for TCU transfer. On hospital day #10 she was transferred to the TCU for continued PT and wound care. CONDITION: Fair, improved. DISPOSITION: TCU. DISCHARGE MEDICATIONS: Coumadin 4 mg p.o. daily, Carvedilol 3.125 mg p.o. b.i.d., Lisinopril/HCTZ 10/ 12.5 mg p.o. daily, Xanax 0.25 mg p.o. daily and Percocet 5/325 mg 1 tab p.o. q. 6 hours p.r.n. pain. FOLLOWUP: The patient will be followed by her PMD and the consultants while on the TCU. Jorge Nguyen MD [facility] # [id number] ISMAEL
--- NOTE | 2018-04-16 11:49 | OP ---
Copied To: Scott Hassan MD Attending MD: Scott Hassan MD. PROCEDURE DATE: 03/28/2018 PROCEDURE: Debridement. SURGEON: Scott Hassan MD. DESCRIPTION OF PROCEDURE: In the operating room, the patient was identified by name, name of procedure, laterality and my laura. The wound is not ready for definitive treatment. So, it was debrided sharply with 10-blade, the and the scissor down to bleeding edges; circumferentially, the area was cauterized and a wound VAC reapplied. Patient taken to the Recovery Room in good condition after sponge and needle count was declared correct. Scott Hassan MD MTDD
--- NOTE | 2018-04-16 12:36 | OP ---
Copied To: Scott Hassan MD Attending MD: Scott Hassan MD. PROCEDURE DATE: 03/21/2018 PREOPERATIVE DIAGNOSIS: Abscess of the left-sided pannus. OPERATION PERFORMED: Debridement and placement of a wound VAC. SURGEON: Scott Hassan MD DESCRIPTION OF PROCEDURE: In the operating room, patient was identified by name, name of the procedure, laterality and my laura. The area was prepped and draped with Betadine and the operation begun. Dr. Hassan was the surgeon. The area was cleaned using the Misonix. The edges were very firm, but not quite ready to do primary closure. Therefore, it was debrided with scissors, a 10 blade and then, the Misonix. The bleeding was controlled with cautery as necessary and the wound VAC applied. Patient taken to Recovery Room in good condition after the sponge and needle count counts were declared correct. Scott Hassan MD
== END 2018-03-29 18:08 | DRG 571 ==
LOC: ED 08:10 → ERH 10:58 → 3RNO 13:17
PROVIDERS: ADMIT Student in an Organized Health Care Education/Training Program; ATTEND Student in an Organized Health Care Education/Training Program
PROC: 3E0234Z Introduction of Serum, Toxoid and Vaccine into Muscle, Percutaneous Approach (ICD-10-PCS; 2018-03-19)
PROC: 0JB80ZZ Excision of Abdomen Subcutaneous Tissue and Fascia, Open Approach (ICD-10-PCS; 2018-03-21)
PROC: 0JB80ZZ Excision of Abdomen Subcutaneous Tissue and Fascia, Open Approach (ICD-10-PCS; principal; 2018-03-28 10:30)
DX: S31.109A Unspecified open wound of abdominal wall, unspecified quadrant without penetration into peritoneal cavity, initial encounter (principal); L02.211 Cutaneous abscess of abdominal wall; L03.311 Cellulitis of abdominal wall; I42.0 Dilated cardiomyopathy; Z68.41 Body mass index [BMI] 40.0-44.9, adult; L89.892 Pressure ulcer of other site, stage 2; E11.9 Type 2 diabetes mellitus without complications; E66.01 Morbid (severe) obesity due to excess calories; F41.9 Anxiety disorder, unspecified; I11.0 Hypertensive heart disease with heart failure; I50.9 Heart failure, unspecified; J44.9 Chronic obstructive pulmonary disease, unspecified; D50.9 Iron deficiency anemia, unspecified; M79.3 Panniculitis, unspecified; Z79.01 Long term (current) use of anticoagulants; Z80.3 Family history of malignant neoplasm of breast; Z86.718 Personal history of other venous thrombosis and embolism; Z86.711 Personal history of pulmonary embolism; Z83.3 Family history of diabetes mellitus; Z23 Encounter for immunization

== ENCOUNTER 2018-03-29 18:08 | Inpatient (IN) | payer BC ==
[2018-03-29] MEDS: Insulin Reg-MEDIUM-Coverage SC SCH (22:09)
[2018-03-29] MEDS: Meropenem 500 MG in Sodium Chloride 0.9% 50 ML IVPB SCH (23:01)
[2018-03-29] MEDS: Enoxaparin 40 mg Syringe SC SCH (23:03)
[2018-03-29] MEDS ORDERED: Pneumococcal 23-Valent Vaccine IM ONE (23:13)
[2018-03-30] MEDS: oxyCODONE 5 mg Immediate Release Tab PO PRN ×3 (01:37→21:50)
[2018-03-30] MEDS: Meropenem 500 MG in Sodium Chloride 0.9% 50 ML IVPB SCH ×3 (06:08→21:09)
[2018-03-30] MEDS: UMECLIDINIUM BRM IH SCH (06:24)
[2018-03-30] MEDS: VILANTEROL TR IH SCH (06:24)
[2018-03-30] MEDS: FLUTICASONE FUROATE 100 MCG IH SCH (06:24)
[2018-03-30 06:27] LABS: ALB/GLOB RATIO 0.9 (1.1-1.8); ALBUMIN 3.2 g/dL (3.0-4.8); ALT/SGPT 24 U/L (7-56); AST/SGOT 24 U/L (14-36); BLOOD UREA NITROGEN 33 mg/dL (7-21); CALCIUM 8.9 mg/dL (8.4-10.5); GFR AFRICAN-AMERICAN > 60; GFR NON-AFRICAN AMERICAN > 60
[2018-03-30 06:34] LABS: BASO # 0.02 K/mm3 (0.0-2.0); BASO % 0.3 % (0.0-3.0); EOS # 0.3 (0.0-0.7); EOS % 4.9 % (1.5-5.0); GRAN # 3.39 (1.4-6.5); GRAN % 55.1 % (50.0-68.0); HEMOGLOBIN 12.1 g/dL (12.0-16.0); LYMPH # 1.9 (1.2-3.4); MEAN CELL VOLUME 86.5 fl (80.0-105.0); MEAN CORPUSCULAR HEMOGLOBIN 28.6 pg (25.0-35.0); MEAN CORPUSCULAR HGB CONC 33.1 g/dl (31.0-37.0); MEAN PLATELET VOLUME 9.1 fl (7.0-11.0); MONO # 0.6 (0.1-0.6); MONO % 9.7 % (1.0-6.0); RBC 4.23 10^6/uL (3.5-6.1); RED CELL DISTRIBUTION WIDTH 15.3 % (11.5-14.5); WHITE BLOOD COUNT 6.2 10^3/ul (4.5-11.0)
[2018-03-30] MEDS: Insulin Reg-MEDIUM-Coverage SC SCH ×4 (06:34→22:06)
[2018-03-30] MEDS: FOLIC ACID PO SCH (10:00)
[2018-03-30] MEDS: Enoxaparin 40 mg Syringe SC SCH ×2 (10:40→21:09)
[2018-03-30] MEDS: Clotrimazole/Betamethasone Cream(15 gm) TOP SCH ×2 (10:43→18:30)
[2018-03-30] MEDS: VITAMIN B COMPLEX PO SCH (10:55)
--- NOTE | 2018-03-30 12:25 | CP.PCM.CON ---
History of Present Illness - History of Present Illness History of Present Illness: 57 year old female with PMH of HTN, DM, morbid obesity with BMI 41 came in initially to [facility] because of chronic abdominal wound and she underwent 2 debridements on the admission with wound vacuum placement. She is now transferred to [facility] for physical rehab and continued medical therapy. Infectious diseases consult is requested to continue her antibiotics. She is currently comfortable on a chair, no fever or chills, no increased pain in her abdomen, no headache or dizziness, no nausea or vomiting, no chest pain, no SOB , no cough or colds, no diarrhea, no chest pain, no dysuria. Review of Systems - Review of Systems All systems: reviewed and no additional remarkable complaints except (as per HPI ) Past Patient History - Infectious Disease Hx of Infectious Diseases: None - Past Medical History & Family History Past Medical History?: Yes - Past Social History Smoking Status: Never Smoked - CARDIAC Hx Pacemaker: No - PULMONARY Hx Chronic Obstructive Pulmonary Disease (COPD): Yes - NEUROLOGICAL Hx Paralysis: No - HEENT Hx HEENT Problems: Yes (STRABISMUS WITH SX.) - RENAL Hx Chronic Kidney Disease: No - ENDOCRINE/METABOLIC Hx Diabetes Mellitus Type 2: Yes (NIDDM) - HEMATOLOGICAL/ONCOLOGICAL Hx Blood Transfusions: Yes Hx Blood Transfusion Reaction: No - INTEGUMENTARY Hx Dermatological Problems: No - MUSCULOSKELETAL/RHEUMATOLOGICAL Hx Musculoskeletal Disorders: Yes - GASTROINTESTINAL Hx Gastrointestinal Disorders: Yes (11/30/17 abd wound debridement/wound vac) - GENITOURINARY/GYNECOLOGICAL Hx Genitourinary Disorders: No Hx Reproductive Disorders: No - PSYCHIATRIC Hx Emotional Abuse: No Hx Physical Abuse: No Hx Substance Use: No - SURGICAL HISTORY Hx Surgeries: Yes - ANESTHESIA Hx Anesthesia Reactions: No Hx Malignant Hyperthermia: No Meds Allergies/Adverse Reactions: Allergies Allergy/AdvReac Type Severity Reaction Status Date / Time No Known Allergies Allergy Verified 03/18/18 08:29 - Medications Medications: Current Medications Alprazolam (Xanax) 0.25 mg PO BID PRN; Protocol PRN Reason: Anxiety Stop: 04/05/18 18:40 Betamethasone/Clotrimazole (Lotrisone) 0 gm TOP BID [facility] Carvedilol (Coreg) 3.125 mg PO BID [facility] Docusate Sodium (Colace) 100 mg PO BID [facility] Enoxaparin Sodium (Lovenox) 40 mg SC Q12H [facility] PRN Reason: Protocol Ferrous Sulfate (Feosol) 324 mg PO BID [facility] Home Med (Home Med) 1 unit IH 0700 [facility] Home Med (Home Med) 1 unit IH 0700 [facility] Home Med (Home Med) 0.8 unit PO DAILY [facility] Home Med (Home Med) 1 unit PO DAILY [facility] Hydrochlorothiazide (Microzide) 12.5 mg PO DAILY [facility] Meropenem 500 mg/ Sodium (Chloride) 50 mls @ 100 mls/hr IVPB Q8 [facility] PRN Reason: Protocol Stop: 04/06/18 14:01 Insulin Human Regular (Humulin R Med) 0 units SC ACHS [facility] PRN Reason: Protocol Last Admin: 03/29/18 22:09 Dose: Not Given Linezolid (Zyvox) 600 mg PO BID [facility] PRN Reason: Protocol Lisinopril (Zestril) 10 mg PO DAILY [facility] Oxycodone HCl (Oxycodone Immediate Release Tab) 5 mg PO Q6H PRN PRN Reason: Pain, severe (8-10) Physical Exam - Constitutional Appears: Non-toxic, Chronically Ill - Head Exam Head Exam: NORMAL INSPECTION - ENT Exam ENT Exam: Mucous Membranes Moist - Neck Exam Neck exam: Negative for: Lymphadenopathy, Meningismus - Respiratory Exam Respiratory Exam: Decreased Breath Sounds - Cardiovascular Exam Cardiovascular Exam: +S1, +S2 - GI/Abdominal Exam GI & Abdominal Exam: Soft. absent: Tenderness Additional comments: wound vacuum in place Results - Labs Result Diagrams: 03/30/18 06:00 03/30/18 06:00 Assessment & Plan - Assessment and Plan (Free Text) Plan: Assessment abdominal wound infection with panniculitis S/P debridement and wound vacuum placement, growing VRE and E. coli, R/O pyoderma gangrenosum history of acute pulmonary embolism, on anticoagulation HTN DM morbid obesity with BMI 44 Plan on Zyvox and Merrem day 10 - follow up OR pathologies - S/P debridement again 2 days ago
--- NOTE | 2018-03-30 18:09 | HP ---
HISTORY OF PRESENT ILLNESS: The patient is a 57 year old woman with multiple medical comorbidities including morbid obesity and a chronic nonhealing stage II pressure ulcer to the left lower quadrant of the abdominal wall who was admitted for electively scheduled surgical debridement. The patient underwent multiple OR debridements with replacement of her wound VAC by Dr. Hassan and the surgical team and was subsequently admitted to the TCU for continued physical therapy and local wound care. PAST MEDICAL HISTORY: As per HPI, also dilated cardiomyopathy, hypertension, [id number] diabetes mellitus, iron-deficiency anemia, anxiety disorder, and history of provoked DVT/PE s/p IVC filter placement. PAST SURGICAL HISTORY: As per HPI, also IVC filter placement. ALLERGIES: NKDA. MEDICATIONS: Coumadin 4 mg p.o. daily, Carvedilol 3.125 mg p.o. b.i.d., Lasix 40 mg p.o. daily, Lisinopril/HCTZ 10/12.5 mg p.o. daily, Xanax 0.25 mg p.o. daily, Percocet 5/325 mg one tab p.o. q. 6 hours p.r.n. pain and Feosol 324 mg p.o. b.i.d. FAMILY HISTORY: Noncontributory. SOCIAL HISTORY: No history of toxic habits. REVIEW OF SYSTEMS: A 12-point review of systems is negative except as per HPI. PHYSICAL EXAMINATION: VITAL SIGNS: Temperature 98.7, pulse 94, blood pressure 143/93, respiratory rate 20, oxygen saturation 99% on room air. GENERAL: Morbidly obese woman lying in bed, in no apparent distress. HEENT: PERRL. EOMI. No scleral icterus. No conjunctival pallor. NECK: No JVD. LUNGS: Clear to auscultation. CARDIOVASCULAR: Regular rate and rhythm. Normal S1 and S2. ABDOMEN: Obese. Normoactive bowel sounds. Soft, nontender, and nondistended. Surgical dressing and wound VAC in place. EXTREMITIES: Trace lower extremity edema bilaterally. NEUROLOGIC: Awake, alert, and oriented x 3. No focal motor deficits. LABORATORY DATA: CBC reviewed and unremarkable. CMP reviewed and unremarkable. ASSESSMENT: The patient is a 57 year old woman with multiple medical comorbidities including morbid obesity and a chronic nonhealing abdominal wall wound who presented for electively scheduled surgical intervention and is now s/p OR debridement s/p wound VAC. PLAN: 1. Cellulitis of the abdominal wall with stage II pressure ulcer s/p OR debridement s/p wound VAC. Continue with postop care as per Dr. Hassan and the surgical team. Input from Dr. Ross appreciated and the patient remains on Meropenem and Linezolid. 2. Dilated cardiomyopathy with an EF of 30%. Continue with current medications. 3. History of DVT and PE s/p IVC filter. We will resume Coumadin 4 mg p.o. daily. 4. Hypertension. Blood pressure controlled. Continue with current medications. 5. Iron deficiency anemia. H/H remain stable. Continue Feosol 324 mg p.o. b.i.d. 6. NIDDM. Continue medium-dose insulin sliding scale for coverage. 7. Anxiety disorder. Continue Xanax 0.25 mg p.o. daily. 8. COPD. Continue supplemental oxygen and bronchodilators as needed. 9. Morbid obesity. 10. Prophylaxis. GI prophylaxis is not indicated as the patient is eating. We will restart Coumadin thus DVT prophylaxis not indicated. CODE STATUS: Full code. Jorge Nguyen MD MTDD
[2018-03-31] MEDS: Meropenem 500 MG in Sodium Chloride 0.9% 50 ML IVPB SCH ×3 (05:29→21:11)
[2018-03-31] MEDS: Insulin Reg-MEDIUM-Coverage SC SCH ×4 (06:46→21:28)
[2018-03-31 07:33] LABS: BASO # 0.02 K/mm3 (0.0-2.0); BASO % 0.3 % (0.0-3.0); EOS # 0.2 (0.0-0.7); GRAN # 3.96 (1.4-6.5); LYMPH # 1.7 (1.2-3.4); LYMPH % 25.8 % (22.0-35.0); MEAN CELL VOLUME 86.7 fl (80.0-105.0); MEAN CORPUSCULAR HEMOGLOBIN 28.6 pg (25.0-35.0); MEAN PLATELET VOLUME 9.4 fl (7.0-11.0); MONO # 0.6 (0.1-0.6); MONO % 8.9 % (1.0-6.0); RBC 4.2 10^6/uL (3.5-6.1); RED CELL DISTRIBUTION WIDTH 15.2 % (11.5-14.5); WHITE BLOOD COUNT 6.4 10^3/ul (4.5-11.0)
[2018-03-31] MEDS: VILANTEROL TR IH SCH (07:35)
[2018-03-31] MEDS: UMECLIDINIUM BRM IH SCH (07:35)
[2018-03-31] MEDS: FLUTICASONE FUROATE 100 MCG IH SCH (07:36)
[2018-03-31 08:07] LABS: ALB/GLOB RATIO 0.9 (1.1-1.8); ALBUMIN 3.4 g/dL (3.0-4.8); ALT/SGPT 19 U/L (7-56); AST/SGOT 26 U/L (14-36); BLOOD UREA NITROGEN 32 mg/dL (7-21); GFR AFRICAN-AMERICAN > 60; GFR NON-AFRICAN AMERICAN > 60
[2018-03-31] MEDS: oxyCODONE 5 mg Immediate Release Tab PO PRN ×2 (09:40→21:42)
[2018-03-31] MEDS: Enoxaparin 40 mg Syringe SC SCH (09:41)
[2018-03-31] MEDS: Clotrimazole/Betamethasone Cream(15 gm) TOP SCH ×2 (09:44→18:34)
[2018-03-31] MEDS: FOLIC ACID PO SCH (10:00)
[2018-03-31] MEDS: VITAMIN B COMPLEX PO SCH (10:00)
--- NOTE | 2018-03-31 14:27 | PN ---
SUBJECTIVE: The patient was seen and examined at bedside on the TCU. No acute events overnight. OBJECTIVE: VITAL SIGNS: Temperature 98.6, pulse 78, blood pressure 129/89, respiratory rate 16, oxygen saturation 98% on room air. GENERAL: Morbidly obese woman, sitting up in her chair, in no apparent distress. HEENT: PERRL, EOMI. No scleral icterus. No conjunctival pallor. NECK: No JVD. LUNGS: Clear to auscultation. CARDIOVASCULAR: Regular rate and rhythm. Normal S1 and S2. ABDOMEN: Obese. Normoactive bowel sounds. Soft, nontender and nondistended. Surgical dressing and wound VAC in place. EXTREMITIES: Trace lower extremity edema bilaterally. NEUROLOGIC: Awake, alert and oriented x 3. No focal motor deficits. LABORATORY DATA: CBC reviewed and unremarkable. CMP reviewed and unremarkable. ASSESSMENT: The patient is a 57 year old woman with multiple medical comorbidities including morbid obesity and a chronic nonhealing abdominal wall wound who presented for electively scheduled surgical intervention and is now s/p OR debridement s/p wound VAC. PLAN: 1. Cellulitis of the abdomen wall with stage II pressure ulcer s/p OR debridement s/p wound VAC. Continue with postoperative and local wound care as per Dr. Hassan and the surgical team. Input from Dr. Ross appreciated. Continue with current antimicrobials as per Dr. Ross. 2. Dilated cardiomyopathy with an EF of 30%. Continue with current medications. 3. History of DVT and PE s/p IVC filter. Continue Coumadin 4 mg p.o. daily. 4. Hypertension. Blood pressure controlled. Continue with current medications. 5. Iron-deficiency anemia. H/H remained stable. Continue Feosol 324 mg p.o. b.i.d. 6. NIDDM. Continue medium-dose insulin sliding scale for coverage. 7. Anxiety disorder. Continue Xanax 0.25 mg p.o. daily. 8. COPD. Continue supplemental oxygen and bronchodilators as needed. 9. Morbid obesity. 10. Prophylaxis. GI prophylaxis is not indicated as the patient is eating. The patient remains on Coumadin thus DVT prophylaxis is not indicated. CODE STATUS: Full code. Jorge Nguyen MD MTDDarío
--- NOTE | 2018-03-31 14:50 | CP.PCM.PN ---
Subjective - Date & Time of Evaluation Date of Evaluation: 03/31/18 Time of Evaluation: 10:40 - Subjective Subjective: Comfortable, no fevers. Objective - Vital Signs/Intake and Output Vital Signs (last 24 hours): Temp Pulse Resp BP Pulse Ox 97.8 F 81 18 120/80 99 03/30/18 10:00 03/30/18 18:28 03/30/18 10:00 03/30/18 18:28 03/30/18 10:00 Intake and Output: 03/30/18 03/31/18 18:59 06:59 Intake Total 200 Balance 200 - Medications Medications: Current Medications Alprazolam (Xanax) 0.25 mg PO BID PRN; Protocol PRN Reason: Anxiety Stop: 04/05/18 18:40 Last Admin: 03/29/18 23:03 Dose: 0.25 mg Betamethasone/Clotrimazole (Lotrisone) 0 gm TOP BID [facility] Last Admin: 03/30/18 18:30 Dose: 1 cer Carvedilol (Coreg) 3.125 mg PO BID [facility] Last Admin: 03/30/18 18:28 Dose: 3.125 mg Docusate Sodium (Colace) 100 mg PO BID [facility] Last Admin: 03/30/18 18:28 Dose: Not Given Enoxaparin Sodium (Lovenox) 40 mg SC Q12H [facility] PRN Reason: Protocol Last Admin: 03/30/18 21:09 Dose: 40 mg Ferrous Sulfate (Feosol) 324 mg PO BID [facility] Last Admin: 03/30/18 18:27 Dose: 324 mg Home Med (Home Med) 1 unit IH 0700 [facility] Last Admin: 03/30/18 06:24 Dose: 1 unit Home Med (Home Med) 1 unit IH 0700 [facility] Last Admin: 03/30/18 06:24 Dose: 1 unit Home Med (Home Med) 0.8 unit PO DAILY [facility] Last Admin: 03/30/18 10:00 Dose: Not Given Home Med (Home Med) 1 unit PO DAILY [facility] Last Admin: 03/30/18 10:55 Dose: Not Given Hydrochlorothiazide (Microzide) 12.5 mg PO DAILY [facility] Last Admin: 03/30/18 10:40 Dose: 12.5 mg Meropenem 500 mg/ Sodium (Chloride) 50 mls @ 100 mls/hr IVPB Q8 [facility] PRN Reason: Protocol Stop: 04/06/18 14:01 Last Admin: 03/31/18 05:29 Dose: 100 mls/hr Insulin Human Regular (Humulin R Med) 0 units SC ACHS [facility] PRN Reason: Protocol Last Admin: 03/30/18 22:06 Dose: Not Given Linezolid (Zyvox) 600 mg PO BID [facility] PRN Reason: Protocol Last Admin: 03/30/18 18:26 Dose: 600 mg Lisinopril (Zestril) 10 mg PO DAILY [facility] Last Admin: 03/30/18 10:41 Dose: 10 mg Oxycodone HCl (Oxycodone Immediate Release Tab) 5 mg PO Q6H PRN PRN Reason: Pain, severe (8-10) Last Admin: 03/30/18 21:50 Dose: 5 mg - Labs Labs: 03/30/18 06:00 03/30/18 06:00 - Constitutional Appears: Chronically Ill - Head Exam Head Exam: NORMAL INSPECTION - Respiratory Exam Respiratory Exam: Decreased Breath Sounds - Cardiovascular Exam Cardiovascular Exam: +S1, +S2 - GI/Abdominal Exam GI & Abdominal Exam: Soft. absent: Tenderness Additional comments: wound vacuum in place Assessment and Plan - Assessment and Plan (Free Text) Plan: Assessment abdominal wound infection with panniculitis S/P debridement and wound vacuum placement, growing VRE and E. coli, R/O pyoderma gangrenosum history of acute pulmonary embolism, on anticoagulation HTN DM morbid obesity with BMI 44 Plan on Zyvox and Merrem day 11 - follow up OR pathologies - S/P debridement again 3 days ago
[2018-04-01] MEDS: Meropenem 500 MG in Sodium Chloride 0.9% 50 ML IVPB SCH ×3 (05:10→21:25)
[2018-04-01] MEDS: Insulin Reg-MEDIUM-Coverage SC SCH ×4 (06:47→23:28)
[2018-04-01 07:16] LABS: BASO # 0.03 K/mm3 (0.0-2.0); BASO % 0.5 % (0.0-3.0); EOS # 0.2 (0.0-0.7); EOS % 3.1 % (1.5-5.0); GRAN # 4.11 (1.4-6.5); GRAN % 62.7 % (50.0-68.0); HEMOGLOBIN 12.3 g/dL (12.0-16.0); LYMPH # 1.6 (1.2-3.4); LYMPH % 25.1 % (22.0-35.0); MEAN CELL VOLUME 87.2 fl (80.0-105.0); MEAN CORPUSCULAR HEMOGLOBIN 28.5 pg (25.0-35.0); MEAN CORPUSCULAR HGB CONC 32.7 g/dl (31.0-37.0); MEAN PLATELET VOLUME 9.3 fl (7.0-11.0); MONO # 0.6 (0.1-0.6); MONO % 8.6 % (1.0-6.0); RBC 4.31 10^6/uL (3.5-6.1); RED CELL DISTRIBUTION WIDTH 15.2 % (11.5-14.5); WHITE BLOOD COUNT 6.5 10^3/ul (4.5-11.0)
[2018-04-01 07:28] LABS: ALB/GLOB RATIO 0.9 (1.1-1.8); ALBUMIN 3.4 g/dL (3.0-4.8); ALT/SGPT 21 U/L (7-56); AST/SGOT 23 U/L (14-36); BLOOD UREA NITROGEN 33 mg/dL (7-21); CALCIUM 9.1 mg/dL (8.4-10.5); GFR AFRICAN-AMERICAN > 60; GFR NON-AFRICAN AMERICAN > 60
--- NOTE | 2018-04-01 09:27 | PN ---
SUBJECTIVE: The patient was seen and examined at bedside on the TCU. No acute events overnight. She remains afebrile and hemodynamically stable. OBJECTIVE: VITAL SIGNS: Temperature 97.8, pulse 80, blood pressure 132/88, respiratory rate 18, oxygen saturation 99% on room air. GENERAL: Morbidly obese woman, sitting up in her chair, in no apparent distress. HEENT: PERRL, EOMI. No scleral icterus. No conjunctival pallor. NECK: No JVD. LUNGS: Clear to auscultation. CARDIOVASCULAR: Regular rate and rhythm. Normal S1 and S2. ABDOMEN: Obese. Normoactive bowel sounds. Soft, nontender and nondistended. Surgical dressing and wound VAC in place. EXTREMITIES: Trace lower extremity edema bilaterally. NEUROLOGIC: Awake, alert and oriented x 3. No focal motor deficits. LABORATORY DATA: CBC reviewed and unremarkable. CMP reviewed and unremarkable. ASSESSMENT: The patient is a 57 year old woman with multiple medical comorbidities including morbid obesity and a chronic nonhealing abdominal wall wound who presented for electively scheduled surgical intervention and is now s/p OR debridement s/p wound VAC. PLAN: 1. Cellulitis of the abdomen with stage II pressure ulcer s/p OR debridement s/ p wound VAC. Continue with postoperative and local wound care as per Dr. Hassan and the surgical team. Input from Dr. Ross appreciated and the patient remains on Linezolid and Meropenem. 2. Dilated cardiomyopathy with an EF of 30%. Continue with current medications. 3. History of DVT and PE s/p IVC filter. Continue Coumadin 4 mg p.o. daily. 4. Hypertension. Continue with current medications. 5. Iron-deficiency anemia. H/H remains stable. Continue Feosol 324 mg p.o. b.i.d. 6. NIDDM. Continue medium-dose insulin sliding scale for coverage. 7. Anxiety disorder. Continue Xanax 0.25 mg p.o. daily. 8. COPD. Continue supplemental oxygen and bronchodilators as needed. 9. Morbid obesity. 10. Prophylaxis. GI prophylaxis is not indicated as the patient is eating. The patient remains on Coumadin thus DVT prophylaxis is not indicated. CODE STATUS: Full code. Jorge Nguyen MD [facility] # [id number] MTDD
[2018-04-01] MEDS: oxyCODONE 5 mg Immediate Release Tab PO PRN ×2 (09:44→17:42)
[2018-04-01] MEDS: Clotrimazole/Betamethasone Cream(15 gm) TOP SCH ×2 (10:14→17:38)
[2018-04-01] MEDS: FLUTICASONE FUROATE 100 MCG IH SCH (10:15)
[2018-04-01] MEDS: UMECLIDINIUM BRM IH SCH (10:15)
[2018-04-01] MEDS: VILANTEROL TR IH SCH (10:15)
[2018-04-01] MEDS: FOLIC ACID PO SCH (10:37)
[2018-04-01] MEDS: VITAMIN B COMPLEX PO SCH (10:43)
--- NOTE | 2018-04-01 11:22 | CP.PCM.PN ---
Subjective - Date & Time of Evaluation Date of Evaluation: 04/01/18 Time of Evaluation: 11:16 - Subjective Subjective: General Surgery Progress Note for: Dr. Hassan Pt was seen and examined this morning at bedside. She denies any acute overnight events. States that she is still tolerating her diet, no nausea or vomiting. She has no fevers, or chills. She states that her abdominal pain is well controlled on her current pain regiment. Objective - Vital Signs/Intake and Output Vital Signs (last 24 hours): Temp Pulse Resp BP Pulse Ox 97.8 F 81 22 120/78 99 03/31/18 16:00 03/31/18 17:21 03/31/18 16:00 03/31/18 17:21 03/31/18 10:00 - Medications Medications: Current Medications Alprazolam (Xanax) 0.25 mg PO BID PRN; Protocol PRN Reason: Anxiety Stop: 04/05/18 18:40 Last Admin: 03/29/18 23:03 Dose: 0.25 mg Betamethasone/Clotrimazole (Lotrisone) 0 gm TOP BID [facility] Last Admin: 04/01/18 10:14 Dose: 1 cer Carvedilol (Coreg) 3.125 mg PO BID [facility] Last Admin: 04/01/18 10:13 Dose: 3.125 mg Docusate Sodium (Colace) 100 mg PO BID [facility] Last Admin: 04/01/18 10:12 Dose: 100 mg Ferrous Sulfate (Feosol) 324 mg PO BID [facility] Last Admin: 04/01/18 10:13 Dose: 324 mg Home Med (Home Med) 1 unit IH 0700 [facility] Last Admin: 04/01/18 10:15 Dose: 1 unit Home Med (Home Med) 1 unit IH 0700 [facility] Last Admin: 04/01/18 10:15 Dose: 1 unit Home Med (Home Med) 0.8 unit PO DAILY [facility] Last Admin: 04/01/18 10:37 Dose: Not Given Home Med (Home Med) 1 unit PO DAILY [facility] Last Admin: 04/01/18 10:43 Dose: Not Given Hydrochlorothiazide (Microzide) 12.5 mg PO DAILY [facility] Last Admin: 04/01/18 10:14 Dose: 12.5 mg Meropenem 500 mg/ Sodium (Chloride) 50 mls @ 100 mls/hr IVPB Q8 [facility] PRN Reason: Protocol Stop: 04/06/18 14:01 Last Admin: 04/01/18 05:10 Dose: 100 mls/hr Insulin Human Regular (Humulin R Med) 0 units SC ACHS [facility] PRN Reason: Protocol Last Admin: 04/01/18 06:47 Dose: Not Given Linezolid (Zyvox) 600 mg PO BID [facility] PRN Reason: Protocol Last Admin: 04/01/18 10:14 Dose: 600 mg Lisinopril (Zestril) 10 mg PO DAILY [facility] Last Admin: 04/01/18 10:14 Dose: 10 mg Oxycodone HCl (Oxycodone Immediate Release Tab) 5 mg PO Q6H PRN PRN Reason: Pain, severe (8-10) Last Admin: 04/01/18 09:44 Dose: 5 mg Warfarin Sodium (Coumadin) 4 mg PO 1800 [facility] PRN Reason: Protocol Last Admin: 03/31/18 17:20 Dose: 4 mg - Labs Labs: 04/01/18 06:30 04/01/18 06:30 - Constitutional Appears: Well, Toxic, No Acute Distress - Head Exam Head Exam: ATRAUMATIC, NORMOCEPHALIC - Eye Exam Eye Exam: EOMI, Normal appearance - ENT Exam ENT Exam: Mucous Membranes Moist, Normal Exam - Respiratory Exam Respiratory Exam: Clear to Ausculation Bilateral, NORMAL BREATHING PATTERN. absent: Accessory Muscle Use, Respiratory Distress - Cardiovascular Exam Cardiovascular Exam: REGULAR RHYTHM, +S1, +S2 - GI/Abdominal Exam GI & Abdominal Exam: Soft, Tenderness (near the wound upon palpation, no erythema or purulence coming from wound. ), Normal Bowel Sounds. absent: Distended, Firm, Guarding, Rigid, Pulsatile Mass Additional comments: Wound vac changed today and healthy granulation tissue was noted to be at the base of the wound. Wound vac is functioning well is set at 125mmHg suction. Wound is [id number]. - Neurological Exam Neurological Exam: Alert, Awake, Oriented x3 - Psychiatric Exam Psychiatric exam: Normal Affect, Normal Mood - Skin Skin Exam: Dry, Intact, Normal Color, Warm Additional comments: Except for wound size noted above. Assessment and Plan - Assessment and Plan (Free Text) Assessment: Pt is a 57 yo F who presented with a large LLQ pannus with a non-healing wound, s/p repeat debridement and wound vac replacement. POD #4 Plan: - OR planned for for wound excision and debridement - Wound vac replaced today (04/01/18) will be changed in OR. Wound vac is functioning and is set to 125 mmHg suction. - Will hold lovenox AM of procedure - Will place pt NPO at midnight on sunday - Continue Abx - further recs per Dr. Hassan.
--- NOTE | 2018-04-01 12:00 | PN ---
DATE: 04/01/2018 The wound will be evaluated today and hopefully, we will close the wound by . Scott Hassan MD
--- NOTE | 2018-04-01 14:46 | CP.PCM.PN ---
Subjective - Date & Time of Evaluation Date of Evaluation: 04/01/18 Time of Evaluation: 12:30 - Subjective Subjective: Abdominal pain is better, wound vacuum was changed today, no fevers, no nausea or diarrhea. Objective - Vital Signs/Intake and Output Vital Signs (last 24 hours): Temp Pulse Resp BP Pulse Ox 97.8 F 81 22 120/78 99 03/31/18 16:00 03/31/18 17:21 03/31/18 16:00 03/31/18 17:21 03/31/18 10:00 - Medications Medications: Current Medications Alprazolam (Xanax) 0.25 mg PO BID PRN; Protocol PRN Reason: Anxiety Stop: 04/05/18 18:40 Last Admin: 03/29/18 23:03 Dose: 0.25 mg Betamethasone/Clotrimazole (Lotrisone) 0 gm TOP BID [facility] Last Admin: 04/01/18 10:14 Dose: 1 cer Carvedilol (Coreg) 3.125 mg PO BID [facility] Last Admin: 04/01/18 10:13 Dose: 3.125 mg Docusate Sodium (Colace) 100 mg PO BID [facility] Last Admin: 04/01/18 10:12 Dose: 100 mg Enoxaparin Sodium (Lovenox) 90 mg SC Q12 [facility] PRN Reason: Protocol Ferrous Sulfate (Feosol) 324 mg PO BID [facility] Last Admin: 04/01/18 10:13 Dose: 324 mg Home Med (Home Med) 1 unit IH 0700 [facility] Last Admin: 04/01/18 10:15 Dose: 1 unit Home Med (Home Med) 1 unit IH 0700 [facility] Last Admin: 04/01/18 10:15 Dose: 1 unit Home Med (Home Med) 0.8 unit PO DAILY [facility] Last Admin: 04/01/18 10:37 Dose: Not Given Home Med (Home Med) 1 unit PO DAILY [facility] Last Admin: 04/01/18 10:43 Dose: Not Given Hydrochlorothiazide (Microzide) 12.5 mg PO DAILY [facility] Last Admin: 04/01/18 10:14 Dose: 12.5 mg Meropenem 500 mg/ Sodium (Chloride) 50 mls @ 100 mls/hr IVPB Q8 [facility] PRN Reason: Protocol Stop: 04/06/18 14:01 Last Admin: 04/01/18 05:10 Dose: 100 mls/hr Insulin Human Regular (Humulin R Med) 0 units SC ACHS [facility] PRN Reason: Protocol Last Admin: 04/01/18 12:37 Dose: Not Given Linezolid (Zyvox) 600 mg PO BID [facility] PRN Reason: Protocol Last Admin: 04/01/18 10:14 Dose: 600 mg Lisinopril (Zestril) 10 mg PO DAILY [facility] Last Admin: 04/01/18 10:14 Dose: 10 mg Oxycodone HCl (Oxycodone Immediate Release Tab) 5 mg PO Q6H PRN PRN Reason: Pain, severe (8-10) Last Admin: 04/01/18 09:44 Dose: 5 mg - Labs Labs: 04/01/18 06:30 04/01/18 06:30 - Constitutional Appears: Chronically Ill - Head Exam Head Exam: NORMAL INSPECTION - ENT Exam ENT Exam: Mucous Membranes Moist - Neck Exam Neck Exam: absent: Lymphadenopathy, Meningismus - Respiratory Exam Respiratory Exam: Decreased Breath Sounds - Cardiovascular Exam Cardiovascular Exam: +S1, +S2 - GI/Abdominal Exam GI & Abdominal Exam: Soft. absent: Tenderness Additional comments: wound vacuum in place Assessment and Plan - Assessment and Plan (Free Text) Plan: Assessment abdominal wound infection with panniculitis S/P debridement and wound vacuum placement, growing VRE and E. coli, R/O pyoderma gangrenosum history of acute pulmonary embolism, on anticoagulation HTN DM morbid obesity with BMI 44 Plan on Zyvox and Merrem day 12 - follow up OR pathologies - S/P debridement again 4 days ago
[2018-04-01] MEDS: Enoxaparin 100 mg Syringe SC SCH (21:24)
[2018-04-02] MEDS: Meropenem 500 MG in Sodium Chloride 0.9% 50 ML IVPB SCH ×3 (05:46→21:51)
[2018-04-02] MEDS: Insulin Reg-MEDIUM-Coverage SC SCH ×4 (06:30→21:51)
[2018-04-02] MEDS: oxyCODONE 5 mg Immediate Release Tab PO PRN ×2 (06:49→15:09)
[2018-04-02] MEDS: VILANTEROL TR IH SCH (06:51)
[2018-04-02] MEDS: UMECLIDINIUM BRM IH SCH (06:51)
[2018-04-02] MEDS: FLUTICASONE FUROATE 100 MCG IH SCH (06:51)
--- NOTE | 2018-04-02 09:38 | PN ---
SUBJECTIVE: The patient is seen and examined at bedside on the TCU. No acute events overnight. OBJECTIVE: VITAL SIGNS: Temperature 97.5, pulse 80, blood pressure 130/80, respiratory rate 18, oxygen saturation 96% on room air. GENERAL: Morbidly obese woman, sitting up in her chair, in no apparent distress. HEENT: PERRL, EOMI. No scleral icterus. No conjunctival pallor. NECK: No JVD. LUNGS: Clear to auscultation. CARDIOVASCULAR: Regular rate and rhythm. Normal S1 and S2. ABDOMEN: Obese, normoactive bowel sounds, soft, nontender and nondistended. Surgical dressing and wound VAC in place. EXTREMITIES: Trace lower extremity edema bilaterally. NEUROLOGIC: Awake, alert and oriented x 3. No focal motor deficits. LABORATORY DATA: CBC reviewed and unremarkable. CMP pending. ASSESSMENT: The patient is a 57 year old woman with multiple medical comorbidities including morbid obesity and a chronic nonhealing abdominal wall wound who presented for electively scheduled surgical intervention and is now s/p OR debridement s/p wound VAC and subsequently transferred to the TCU for continued PT. PLAN: 1. Cellulitis of the abdomen with stage II pressure ulcer s/p OR debridement s/ p wound VAC. Continue with postoperative and local wound care as per Dr. Hassan and the surgical team. The patient is scheduled for repeat OR debridement on () Input from Dr. Cody nelson and the patient remains on Linezolid and Meropenem. 2. Dilated cardiomyopathy with an EF of 30%. Continue with current medications. 3. History of DVT and PE s/p IVC filter. Continue therapeutic Lovenox. 4. Hypertension. Continue with current medications. 5. Iron-deficiency anemia. H/H remains stable. Continue Feosol 324 mg p.o. b.i.d. 6. NIDDM. Continue medium-dose insulin sliding scale for coverage. 7. Anxiety disorder. Continue Xanax 0.25 mg p.o. daily. 8. COPD. Continue supplemental oxygen and bronchodilators as needed. 9. Morbid obesity. 10. Prophylaxis. GI prophylaxis is not indicated as the patient is eating. The patient remains on therapeutic Lovenox thus DVT prophylaxis is not indicated. CODE STATUS: Full code. Jorge Nguyen MD [facility] # [id number] ISMAEL
[2018-04-02] MEDS: Enoxaparin 100 mg Syringe SC SCH ×2 (10:17→21:51)
[2018-04-02] MEDS: Clotrimazole/Betamethasone Cream(15 gm) TOP SCH ×2 (10:18→17:46)
[2018-04-02] MEDS: VITAMIN B COMPLEX PO SCH (10:18)
[2018-04-02] MEDS: FOLIC ACID PO SCH (10:18)
[2018-04-03] MEDS: UMECLIDINIUM BRM IH SCH (05:59)
[2018-04-03] MEDS: Meropenem 500 MG in Sodium Chloride 0.9% 50 ML IVPB SCH ×3 (05:59→21:02)
[2018-04-03] MEDS: VILANTEROL TR IH SCH (05:59)
[2018-04-03] MEDS: FLUTICASONE FUROATE 100 MCG IH SCH (05:59)
[2018-04-03] MEDS: Insulin Reg-MEDIUM-Coverage SC SCH ×4 (06:37→22:12)
--- NOTE | 2018-04-03 09:07 | PN ---
SUBJECTIVE: The patient was seen and examined at bedside on the TCU. No acute events overnight. She is tentatively scheduled for repeat OR debridement of her abdominal wound tomorrow. OBJECTIVE: VITAL SIGNS: Temperature 98.2, pulse 79, blood pressure 126/81, respiratory rate 18, oxygen saturation 97% on room air. GENERAL: Morbidly obese woman, lying in bed, in no apparent distress. HEENT: PERRL, EOMI. No scleral icterus. No conjunctival pallor. NECK: No JVD. LUNGS: Clear to auscultation. CARDIOVASCULAR: Regular rate and rhythm. Normal S1 and S2. ABDOMEN: Obese. Normoactive bowel sounds. Soft, nontender and nondistended. Surgical dressing and wound VAC in place. EXTREMITIES: Trace lower extremity edema bilaterally. NEUROLOGIC: Awake, alert and oriented x 3. No focal motor deficits. LABORATORY DATA: No new labs. ASSESSMENT: The patient is a 57 year old woman with multiple medical comorbidities including morbid obesity and a chronic nonhealing abdominal wall wound who presented for electively scheduled surgical intervention and is now s/p OR debridement s/p wound VAC and maintained on the TCU for continued PT. PLAN: 1. Cellulitis of the abdomen with stage II pressure ulcer s/p OR debridement s/ p wound VAC. Continue with postoperative and local wound care as per Dr. Hassan and the surgical team. The patient is pending repeat OR debridement tomorrow. Input from Dr. Gambino appreciated. Continue with current antimicrobials. 2. Dilated cardiomyopathy with an EF of 30%. Continue with current medications. 3. History of DVT and PE s/p IVC filter. Continue therapeutic Lovenox. 4. Hypertension, blood pressure controlled. Continue with current medications. 5. Iron-deficiency anemia. H/H remains stable. Continue Feosol 324 mg p.o. b.i.d. 6. NIDDM. Continue medium-dose insulin sliding scale for coverage. 7. Anxiety disorder. Continue Xanax 0.25 mg p.o. daily. 8. COPD. Continue supplemental oxygen and bronchodilators as needed. 9. Morbid obesity. 10. Prophylaxis. GI prophylaxis is not indicated as the patient is eating. The patient remains on therapeutic Lovenox thus DVT prophylaxis is not indicated. CODE STATUS: Full code. Jorge Nguyen MD [facility] # [id number] ISMAEL
[2018-04-03] MEDS: FOLIC ACID PO SCH (09:20)
[2018-04-03] MEDS: VITAMIN B COMPLEX PO SCH (09:20)
[2018-04-03] MEDS: Clotrimazole/Betamethasone Cream(15 gm) TOP SCH ×2 (09:25→17:23)
[2018-04-03] MEDS: oxyCODONE 5 mg Immediate Release Tab PO PRN ×2 (09:30→21:58)
--- NOTE | 2018-04-03 14:03 | CP.PCM.PN ---
Subjective - Date & Time of Evaluation Date of Evaluation: 04/03/18 Time of Evaluation: 10:15 - Subjective Subjective: No fevers, not in distress. Objective - Vital Signs/Intake and Output Vital Signs (last 24 hours): Temp Pulse Resp BP Pulse Ox 97.8 F 79 18 126/81 97 04/02/18 10:00 04/02/18 17:45 04/02/18 10:00 04/02/18 17:45 04/02/18 10:00 - Medications Medications: Current Medications Alprazolam (Xanax) 0.25 mg PO BID PRN; Protocol PRN Reason: Anxiety Stop: 04/05/18 18:40 Last Admin: 03/29/18 23:03 Dose: 0.25 mg Betamethasone/Clotrimazole (Lotrisone) 0 gm TOP BID [facility] Last Admin: 04/02/18 17:46 Dose: 1 cer Carvedilol (Coreg) 3.125 mg PO BID [facility] Last Admin: 04/02/18 17:45 Dose: 3.125 mg Docusate Sodium (Colace) 100 mg PO BID [facility] Last Admin: 04/02/18 17:45 Dose: 100 mg Enoxaparin Sodium (Lovenox) 90 mg SC Q12 [facility] PRN Reason: Protocol Last Admin: 04/02/18 21:51 Dose: 90 mg Ferrous Sulfate (Feosol) 324 mg PO BID [facility] Last Admin: 04/02/18 17:46 Dose: 324 mg Home Med (Home Med) 1 unit IH 0700 [facility] Last Admin: 04/03/18 05:59 Dose: 1 unit Home Med (Home Med) 1 unit IH 0700 [facility] Last Admin: 04/03/18 05:59 Dose: 1 unit Home Med (Home Med) 0.8 unit PO DAILY [facility] Last Admin: 04/02/18 10:18 Dose: Not Given Home Med (Home Med) 1 unit PO DAILY [facility] Last Admin: 04/02/18 10:18 Dose: Not Given Hydrochlorothiazide (Microzide) 12.5 mg PO DAILY [facility] Last Admin: 04/02/18 10:17 Dose: 12.5 mg Meropenem 500 mg/ Sodium (Chloride) 50 mls @ 100 mls/hr IVPB Q8 [facility] PRN Reason: Protocol Stop: 04/06/18 14:01 Last Admin: 04/03/18 05:59 Dose: 100 mls/hr Insulin Human Regular (Humulin R Med) 0 units SC ACHS [facility] PRN Reason: Protocol Last Admin: 04/03/18 06:37 Dose: 1 u Linezolid (Zyvox) 600 mg PO BID [facility] PRN Reason: Protocol Last Admin: 04/02/18 17:46 Dose: 600 mg Lisinopril (Zestril) 10 mg PO DAILY [facility] Last Admin: 04/02/18 10:17 Dose: 10 mg - Labs Labs: 04/01/18 06:30 04/01/18 06:30 - Constitutional Appears: Chronically Ill - Head Exam Head Exam: NORMAL INSPECTION - ENT Exam ENT Exam: Mucous Membranes Moist - Neck Exam Neck Exam: absent: Lymphadenopathy, Meningismus - Respiratory Exam Respiratory Exam: Decreased Breath Sounds - Cardiovascular Exam Cardiovascular Exam: +S1, +S2 - GI/Abdominal Exam GI & Abdominal Exam: Soft. absent: Tenderness Additional comments: wound vacuum in place Assessment and Plan - Assessment and Plan (Free Text) Plan: Assessment abdominal wound infection with panniculitis S/P debridement and wound vacuum placement, growing VRE and E. coli, R/O pyoderma gangrenosum history of acute pulmonary embolism, on anticoagulation HTN DM morbid obesity with BMI 44 Plan on Zyvox and Merrem day 14 - follow up OR pathologies - for debridement again tomorrow
[2018-04-03 17:13] VITALS: O2SAT 99
[2018-04-04] MEDS: Meropenem 500 MG in Sodium Chloride 0.9% 50 ML IVPB SCH (05:35)
[2018-04-04 05:49] LABS: BASO # 0.04 K/mm3 (0.0-2.0); BASO % 0.6 % (0.0-3.0); EOS # 0.2 (0.0-0.7); EOS % 2.8 % (1.5-5.0); GRAN # 3.58 (1.4-6.5); GRAN % 56.2 % (50.0-68.0); HEMOGLOBIN 12.5 g/dL (12.0-16.0); MEAN CORPUSCULAR HEMOGLOBIN 29.6 pg (25.0-35.0); MONO # 0.6 (0.1-0.6); MONO % 9.4 % (1.0-6.0); RBC 4.23 10^6/uL (3.5-6.1); RED CELL DISTRIBUTION WIDTH 15.4 % (11.5-14.5); WHITE BLOOD COUNT 6.4 10^3/ul (4.5-11.0)
[2018-04-04 05:53] LABS: BLOOD UREA NITROGEN 38 mg/dL (7-21); CALCIUM 8.9 mg/dL (8.4-10.5); GFR AFRICAN-AMERICAN > 60; GFR NON-AFRICAN AMERICAN > 60
[2018-04-04] MEDS: oxyCODONE 5 mg Immediate Release Tab PO PRN (05:57)
[2018-04-04 06:00] LABS: INR 1.28 (0.93-1.08); PROTHROMBIN TIME 14.8 SECONDS (9.4-12.5)
[2018-04-04] MEDS: FLUTICASONE FUROATE 100 MCG IH SCH (06:00)
[2018-04-04 06:01] LABS: PARTIAL THROMBOPLASTIN TIME 31.9 Seconds (25.1-36.5)
[2018-04-04] MEDS: VILANTEROL TR IH SCH (06:01)
[2018-04-04] MEDS: UMECLIDINIUM BRM IH SCH (06:01)
[2018-04-04 06:34] VITALS: BP 121/77; PULSE 20; RESP 20; TEMP 97.7
[2018-04-04] MEDS: Insulin Reg-MEDIUM-Coverage SC SCH (06:35)
[2018-04-04] MEDS ORDERED: Midazolam 2 MG/2 ML VIAL ONE (11:57)
[2018-04-04] MEDS ORDERED: Etomidate 20 mg/10ml Inj IV ONE (11:57)
--- NOTE | 2018-04-04 12:54 | PN ---
DATE: 04/02/2018 SUBJECTIVE: The patient was seen early that morning in room 302. She was doing well. No fevers. No chills. No nausea and vomiting. PHYSICAL EXAMINATION: VITAL SIGNS: Temperature of 97, blood pressure is 120/70, respiratory rate of 18. HEENT: Examination of HEENT is unremarkable. NECK: Supple. LUNGS: Have decreased breath sounds. HEART: Normal S1 and S2. ABDOMEN: Soft. LABORATORY DATA: Laboratory examination is noted. Cultures are reviewed. ASSESSMENT AND PLAN: A 57-year-old female with morbid obesity, initially started with abdominal wound, panniculitis, status post debridement and wound vacuum-assisted closure placement, growing vancomycin-resistant Enterococcus and Escherichia coli and concerned about pyoderma gangrenosum in a patient with a history of acute pulmonary emboli, anticoagulation, diabetes, hypertension, morbid obesity, body mass index of 44, on antibiotics. This is a re-dictation. Brock Gambino MD
--- NOTE | 2018-04-04 13:24 | PN ---
SUBJECTIVE: The patient wsas seen and examined at bedside on the TCU. No acute events overnight. She is tentatively scheduled for repeat OR debridement later today. OBJECTIVE: VITAL SIGNS: Temperature 97.7, pulse 80, blood pressure 121/77, respiratory rate 20, oxygen saturation 99% on room air. GENERAL: Morbidly obese woman, sitting up in her chair, in no apparent distress. HEENT: PERRL. EOMI. No scleral icterus. No conjunctival pallor. NECK: No JVD. LUNGS: Clear to auscultation. CARDIOVASCULAR: Regular rate and rhythm. Normal S1 and S2. ABDOMEN: Obese, normoactive bowel sounds, soft, nontender, nondistended. Wound vac in place. EXTREMITIES: Trace lower extremity edema bilaterally. NEUROLOGIC: Awake, alert and oriented x 3. No focal motor deficits. LABORATORY DATA: CBC reviewed and unremarkable. CMP reviewed and unremarkable. ASSESSMENT: The patient is a 57 year old woman with multiple medical comorbidities including morbid obesity and a chronic nonhealing abdominal wall wound who presented for electively scheduled surgical intervention and is now s/p OR debridement s/p wound VAC and maintained on the TCU for continued wound care and PT. PLAN: 1. Cellulitis of the abdomen with stage II pressure ulcer s/p OR debridement s/ p wound VAC. Continue with postoperative and local wound care per Dr. Hassan and the surgical team. She is pending repeat OR debridement later today. Input from Dr. Ross is appreciated. Continue with current antimicrobials. 2. Dilated cardiomyopathy with an EF of 30%. Continue with current medications. 3. History of DVT and PE s/p IVC filter. Continue with therapeutic Lovenox. 4. Hypertension. BP remains controlled. Continue with current medications. 5. Iron deficiency anemia. H/H remains stable. Continue Feosol 324 mg p.o. b.i.d. 6. NIDDM. Continue medium dose insulin sliding scale for coverage. 7. Anxiety disorder. Continue with Xanax 0.25 mg p.o. daily. 8. COPD. Continue supplemental oxygen and bronchodilators as needed. 9. Morbid obesity. 10. Prophylaxis. GI prophylaxis not indicated as the patient is eating. She remains on therapeutic Lovenox thus DVT prophylaxis no indicated. CODE STATUS: Full code. Jorge Nguyen MD [facility] # [id number] ISMAEL
--- NOTE | 2018-04-05 08:15 | DS ---
ADMITTING DIAGNOSES: Cellulitis of the abdominal wall with stage II pressure ulcer, status post operating room debridement, status post wound vacuum-assisted closure. DISCHARGE DIAGNOSES: Cellulitis of the abdominal wall with stage II pressure ulcer, status post operating room debridement, status post wound vacuum-assisted closure. SECONDARY DIAGNOSES: Morbid obesity, dilated cardiomyopathy, hypertension, iron deficiency anemia, [id number] diabetes mellitus, anxiety disorder, and history of provoked deep venous thrombosis and pulmonary embolism, status post inferior vena cava filter. CONSULTATIONS: Dr. Hassan (General Surgery) and Dr. Ross (Infectious Disease). HISTORY OF PRESENT ILLNESS: The patient is a 57-year-old woman with multiple medical comorbidities including morbid obesity and a chronic nonhealing stage II pressure ulcer to the left lower quadrant of the abdominal wall, who is initially admitted for electively scheduled surgical debridement. After successfully undergoing multiple OR debridements and replacement of her wound VAC, the patient was transferred to the TCU for continued physical therapy and local wound care. HOSPITAL COURSE: While in the TCU, the patient's stay was unremarkable. Daily local wound care was rendered by Dr. Hassan and the surgical team. Arrangements were made to have the patient return to the OR for attempted closure of her wound and removal of the wound VAC and on TCU day #5, she was discharged to same day surgery for attempted wound closure. DISPOSITION: Same day surgery. Jorge Nguyen MD
== END 2018-04-04 10:13 | disposition short-term general hospital (02) | DRG 603 ==
LOC: TRCU 18:08
PROVIDERS: ADMIT Student in an Organized Health Care Education/Training Program; ATTEND Student in an Organized Health Care Education/Training Program
PROC: F07Z9ZZ Gait Training/Functional Ambulation Treatment (ICD-10-PCS; principal; 2018-03-30)
PROC: F08Z4ZZ Home Management Treatment (ICD-10-PCS; 2018-03-30)
DX: L03.311 Cellulitis of abdominal wall (principal); L89.892 Pressure ulcer of other site, stage 2; I42.0 Dilated cardiomyopathy; Z68.41 Body mass index [BMI] 40.0-44.9, adult; E66.01 Morbid (severe) obesity due to excess calories; M79.3 Panniculitis, unspecified; D50.9 Iron deficiency anemia, unspecified; E11.9 Type 2 diabetes mellitus without complications; J44.9 Chronic obstructive pulmonary disease, unspecified; I10 Essential (primary) hypertension; F41.9 Anxiety disorder, unspecified; Z79.84 Long term (current) use of oral hypoglycemic drugs; Z98.890 Other specified postprocedural states; Z86.711 Personal history of pulmonary embolism; Z86.718 Personal history of other venous thrombosis and embolism

== ENCOUNTER 2018-04-04 10:14 | Inpatient (IN) | payer BC ==
[2018-04-04] MEDS ORDERED: Methylene Blue 10 mg/mL(10ml) IV ONE ×2 (10:40→12:44)
[2018-04-04] MEDS ORDERED: Lidocaine 1% Inj (20ml) ONE (13:23)
[2018-04-04] MEDS ORDERED: Bupivacaine 0.5% Inj(30mL) IJ ONE (13:33)
[2018-04-04] MEDS ORDERED: Lidocaine 1% Inj (20ml) IJ ONE (13:34)
[2018-04-04] MEDS ORDERED: Morphine 4 mg/ml ISec IVP PRN (13:47)
--- NOTE | 2018-04-04 13:51 | PCM.SURG1 ---
Surgeon's Initial Post Op Note - Surgeon's Notes Surgeon: Dr. Hassan Farmworker Fur: Lorelei Prieto, PGY3; Mary Brar, PGY2 Type of Anesthesia: General Endo Pre-Operative Diagnosis: non-healing abdominal panus wound Operative Findings: Abdominal wound with necrotic tissue at the base, skin edges cut to healthy tissue, hemostasis attained with ligation and cautery Post-Operative Diagnosis: same Operation Performed: extensive debridement of non-healing lower abdominal pannus wound with primary closure Specimen/Specimens Removed: debrided wound tissue Estimated Blood Loss: EBL {In ML}: 100 Blood Products Given: N/A Drains Used: [place] Post-Op Condition: Fair Date of Surgery/Procedure: 04/04/18 Time of Surgery/Procedure: 11:30
[2018-04-04] MEDS ORDERED: Lactated Ringer's 1,000 ML IV SCH (13:54)
[2018-04-04] MEDS ORDERED: Morphine 4 mg/ml ISec ONE (16:11)
[2018-04-04] MEDS: IRON PO SCH (17:32)
[2018-04-04] MEDS: oxyCODONE 5 mg Immediate Release Tab PO PRN (20:56)
[2018-04-04] MEDS: Meropenem 500 MG in Sodium Chloride 0.9% 50 ML IVPB SCH (21:08)
[2018-04-05] MEDS: oxyCODONE 5 mg Immediate Release Tab PO PRN ×4 (03:04→21:56)
[2018-04-05 07:00] LABS: BASO # 0.03 K/mm3 (0.0-2.0); BASO % 0.3 % (0.0-3.0); EOS # 0.3 (0.0-0.7); EOS % 3.4 % (1.5-5.0); GRAN # 6.26 (1.4-6.5); GRAN % 68.5 % (50.0-68.0); HEMOGLOBIN 10.7 g/dL (12.0-16.0); LYMPH # 1.6 (1.2-3.4); LYMPH % 17.1 % (22.0-35.0); MEAN CELL VOLUME 87.5 fl (80.0-105.0); MEAN CORPUSCULAR HEMOGLOBIN 29.1 pg (25.0-35.0); MEAN CORPUSCULAR HGB CONC 33.2 g/dl (31.0-37.0); MONO % 10.7 % (1.0-6.0); RBC 3.68 10^6/uL (3.5-6.1); RED CELL DISTRIBUTION WIDTH 15.5 % (11.5-14.5); WHITE BLOOD COUNT 9.1 10^3/ul (4.5-11.0)
[2018-04-05 07:39] LABS: BLOOD UREA NITROGEN 28 mg/dL (7-21); CALCIUM 8.3 mg/dL (8.4-10.5); GFR AFRICAN-AMERICAN > 60; GFR NON-AFRICAN AMERICAN > 60
[2018-04-05] MEDS: Non Formulary Medication (Fluticasone Furoate [Arnuity Ellipta] 1 PUFF) IH SCH (09:42)
[2018-04-05] MEDS: Meropenem 500 MG in Sodium Chloride 0.9% 50 ML IVPB SCH (09:43)
[2018-04-05] MEDS: Non Formulary Medication (Umeclidinium Brm/Vilanterol Tr [Anoro Ellipta 62.5-25 Mcg Inh] 1 IH SCH (09:45)
[2018-04-05 10:21] LABS: INR 1.29 (0.93-1.08); PROTHROMBIN TIME 14.9 SECONDS (9.4-12.5)
--- NOTE | 2018-04-05 11:13 | CP.PCM.PN ---
Subjective - Date & Time of Evaluation Date of Evaluation: 04/05/18 Time of Evaluation: 11:11 - Subjective Subjective: General Surgery Note for: Dr. Hassan Pt was seen and examined this morning at bedside. She states that she is having some nicolás-incisional pain. She denies fever, chills, nausea, vomiting or other abdominal pain. She states her pain is well controlled with current pain regimen. Objective - Vital Signs/Intake and Output Vital Signs (last 24 hours): Temp Pulse Resp BP Pulse Ox 98.1 F 84 18 138/72 99 04/04/18 16:39 04/05/18 09:45 04/04/18 16:39 04/05/18 09:45 04/04/18 16:05 Intake and Output: 04/05/18 04/05/18 06:59 18:59 Intake Total 360 Balance 360 - Medications Medications: Current Medications Alprazolam (Xanax) 0.25 mg PO Q6H PRN; Protocol PRN Reason: Anxiety Stop: 04/11/18 13:56 Carvedilol (Coreg) 3.125 mg PO BID [facility] Last Admin: 04/05/18 09:40 Dose: 3.125 mg Docusate Sodium (Colace) 100 mg PO DAILY [facility] Last Admin: 04/05/18 09:40 Dose: 100 mg Enoxaparin Sodium (Lovenox) 90 mg SC Q12H [facility] PRN Reason: Protocol Fentanyl (Fentanyl) 25 mcg IV Q5M PRN PRN Reason: Pain, moderate (4-7) Last Admin: 04/04/18 14:45 Dose: 25 mcg Furosemide (Lasix) 40 mg PO DAILY [facility] Last Admin: 04/05/18 09:42 Dose: 40 mg Hydrochlorothiazide (Microzide) 12.5 mg PO DAILY [facility] Last Admin: 04/05/18 09:44 Dose: 12.5 mg Lactated Ringer's (Lactated Ringer's) 1,000 mls @ 75 mls/hr IV .[id number] [facility] Stop: 04/05/18 13:55 Meropenem (Merrem Iv 1 Gm Premix) 50 mls @ 100 mls/hr IVPB Q8 [facility] PRN Reason: Protocol Stop: 04/12/18 14:01 Linezolid (Zyvox 600mg/300ml D5w) 600 mg in 300 mls @ 200 mls/hr IVPB Q12 [facility] PRN Reason: Protocol Stop: 04/12/18 22:01 Lisinopril (Zestril) 10 mg PO DAILY [facility] Last Admin: 04/05/18 09:45 Dose: 10 mg Morphine Sulfate (Morphine) 4 mg IVP Q4H PRN PRN Reason: Pain, moderate (4-7) Last Admin: 04/04/18 16:05 Dose: 4 mg Non-Formulary Medication (Fluticasone Furoate [Arnuity Ellipta]) 1 puff IH QAM [facility] Last Admin: 04/05/18 09:42 Dose: 1 puff Non-Formulary Medication (Iron [Iron]) 325 tab PO BID [facility] Last Admin: 04/04/18 17:32 Dose: Not Given Non-Formulary Medication (Umeclidinium Brm/Vilanterol Tr [Anoro Ellipta 62.5-25 Mcg Inh]) 1 puff IH QAM [facility] Last Admin: 04/05/18 09:45 Dose: 1 puff Non-Formulary Medication (Vitamin B Complex [Super B-50 Complex]) 1 cap PO DAILY [facility] Ondansetron HCl (Zofran Inj) 4 mg IVP ONCE PRN PRN Reason: Nausea/Vomiting Oxycodone HCl (Oxycodone Immediate Release Tab) 5 mg PO Q6H PRN PRN Reason: Pain, severe (8-10) Last Admin: 04/05/18 08:22 Dose: 5 mg - Labs Labs: 04/05/18 06:30 04/05/18 06:30 PT 14.9 SECONDS (9.4-12.5) H 04/05/18 09:30 INR 1.29 (0.93-1.08) H 04/05/18 09:30 - Constitutional Appears: Well, Non-toxic, No Acute Distress - Head Exam Head Exam: ATRAUMATIC, NORMOCEPHALIC - Eye Exam Eye Exam: EOMI, Normal appearance - Respiratory Exam Respiratory Exam: Clear to Ausculation Bilateral, NORMAL BREATHING PATTERN. absent: Accessory Muscle Use, Respiratory Distress - Cardiovascular Exam Cardiovascular Exam: +S1, +S2 - GI/Abdominal Exam GI & Abdominal Exam: Soft, Tenderness (nicolás-incisonal tenderness), Normal Bowel Sounds. absent: Distended, Firm, Guarding, Rigid Additional comments: Linear incision present on the LLQ without erythema, purulence, fluctuance, or other evidence of infection C/D/I. Retention sutures in place, genesis drain in place. - Neurological Exam Neurological Exam: Alert, Awake, Oriented x3 - Psychiatric Exam Psychiatric exam: Normal Affect, Normal Mood - Skin Skin Exam: Dry, Intact, Normal Color, Warm Additional comments: except where noted above. Assessment and Plan - Assessment and Plan (Free Text) Assessment: Pt is a 57 yo F who presented with a large LLQ pannus with a non-healing wound, s/p debridement and closure. POD #1 Plan: - Restarted on Therapuetic lovenox due to PE hx - Recommend lovenox to coumadin bridge - f/u INR in AM - Cont ABX per ID - Discussed with Dr. Hassan
[2018-04-05] MEDS: IRON PO SCH ×2 (12:18→17:35)
[2018-04-05] MEDS: Enoxaparin 100 mg Syringe SC SCH ×3 (12:20→21:53)
[2018-04-05] MEDS: Non Formulary Medication (Vitamin B Complex [Super B-50 Complex] 1 CAP) PO SCH (12:21)
[2018-04-05] MEDS: Meropenem IV 1 gm in NS 50 ML IVPB SCH ×2 (14:39→21:40)
--- NOTE | 2018-04-05 14:44 | CP.PCM.CON ---
History of Present Illness - History of Present Illness History of Present Illness: 57 year old female with PMH of HTN, DM, morbid obesity with BMI 41 has had multiple debridements of the her chronic abdominal wound for the past 2-3 weeks. She came from [facility] and is now admitted again in the acute care portion of the hospital after debridement and closure of the wound. She denies fever or chills, no nausea or vomiting, no chest pain, no SOB, no headache or dizziness, no cough or rhinorrhea, less abdominal pain. Infectious Diseases consult is requested to continue her antibiotic therapy. Review of Systems - Review of Systems All systems: reviewed and no additional remarkable complaints except (as per HPI ) Past Patient History - Infectious Disease Hx of Infectious Diseases: None - Past Medical History & Family History Past Medical History?: Yes - Past Social History Smoking Status: Never Smoked - CARDIAC Hx Pacemaker: No - PULMONARY Hx Chronic Obstructive Pulmonary Disease (COPD): Yes - NEUROLOGICAL Hx Neurological Disorder: No - HEENT Hx HEENT Problems: Yes (STRABISMUS WITH SX.) - RENAL Hx Chronic Kidney Disease: No - ENDOCRINE/METABOLIC Hx Diabetes Mellitus Type 2: Yes - HEMATOLOGICAL/ONCOLOGICAL Hx Blood Disorders: Yes (blood transfusion) Hx Anemia: Yes (iron deficiency) Other/Comment: PE with IVC filter placement - INTEGUMENTARY Hx Dermatological Problems: No - MUSCULOSKELETAL/RHEUMATOLOGICAL Hx Falls: No - GASTROINTESTINAL Hx Gastrointestinal Disorders: Yes (11/30/17 abd wound debridement/wound vac) - GENITOURINARY/GYNECOLOGICAL Hx Genitourinary Disorders: No - PSYCHIATRIC Hx Emotional Abuse: No Hx Physical Abuse: No - SURGICAL HISTORY Hx Surgeries: Yes - ANESTHESIA Hx Anesthesia Reactions: No Meds Allergies/Adverse Reactions: Allergies Allergy/AdvReac Type Severity Reaction Status Date / Time No Known Allergies Allergy Verified 03/18/18 08:29 - Medications Medications: Current Medications Alprazolam (Xanax) 0.25 mg PO Q6H PRN; Protocol PRN Reason: Anxiety Stop: 04/11/18 13:56 Carvedilol (Coreg) 3.125 mg PO BID [facility] Last Admin: 04/05/18 09:40 Dose: 3.125 mg Docusate Sodium (Colace) 100 mg PO DAILY [facility] Last Admin: 04/05/18 09:40 Dose: 100 mg Enoxaparin Sodium (Lovenox) 90 mg SC Q12H [facility] PRN Reason: Protocol Fentanyl (Fentanyl) 25 mcg IV Q5M PRN PRN Reason: Pain, moderate (4-7) Last Admin: 04/04/18 14:45 Dose: 25 mcg Furosemide (Lasix) 40 mg PO DAILY [facility] Last Admin: 04/05/18 09:42 Dose: 40 mg Hydrochlorothiazide (Microzide) 12.5 mg PO DAILY [facility] Last Admin: 04/05/18 09:44 Dose: 12.5 mg Lactated Ringer's (Lactated Ringer's) 1,000 mls @ 75 mls/hr IV .[id number] [facility] Stop: 04/05/18 13:55 Meropenem 500 mg/ Sodium (Chloride) 50 mls @ 100 mls/hr IVPB Q12 [facility] PRN Reason: Protocol Stop: 04/05/18 22:29 Last Admin: 04/05/18 09:43 Dose: 100 mls/hr Lisinopril (Zestril) 10 mg PO DAILY [facility] Last Admin: 04/05/18 09:45 Dose: 10 mg Morphine Sulfate (Morphine) 4 mg IVP Q4H PRN PRN Reason: Pain, moderate (4-7) Last Admin: 04/04/18 16:05 Dose: 4 mg Non-Formulary Medication (Fluticasone Furoate [Arnuity Ellipta]) [facility] [place] Last Admin: 04/05/18 09:42 Dose: 1 puff Non-Formulary Medication (Iron [Iron]) 325 tab PO BID [facility] Last Admin: 04/04/18 17:32 Dose: Not Given Non-Formulary Medication (Umeclidinium Brm/Vilanterol Tr [Anoro Ellipta 62.5-25 Mcg Inh]) 1 puff IH QAM [facility] Last Admin: 04/05/18 09:45 Dose: 1 puff Non-Formulary Medication (Vitamin B Complex [Super B-50 Complex]) 1 cap PO DAILY [facility] Ondansetron HCl (Zofran Inj) 4 mg IVP ONCE PRN PRN Reason: Nausea/Vomiting Oxycodone HCl (Oxycodone Immediate Release Tab) 5 mg PO Q6H PRN PRN Reason: Pain, severe (8-10) Last Admin: 04/05/18 08:22 Dose: 5 mg Physical Exam - Constitutional Appears: Non-toxic, Chronically Ill - Head Exam Head Exam: NORMAL INSPECTION - ENT Exam ENT Exam: Mucous Membranes Moist - Neck Exam Neck exam: Negative for: Meningismus - Respiratory Exam Respiratory Exam: Decreased Breath Sounds - Cardiovascular Exam Cardiovascular Exam: +S1, +S2 - GI/Abdominal Exam GI & Abdominal Exam: Soft. absent: Tenderness Additional comments: dry dressings in place Results - Vital Signs Recent Vital Signs: Last Vital Signs Temp 98.1 F 04/04/18 16:39 Pulse 84 04/05/18 09:45 Resp 18 04/04/18 16:39 BP 138/72 04/05/18 09:45 Pulse Ox 99 04/04/18 16:05 - Labs Result Diagrams: 04/05/18 06:30 04/05/18 06:30 Labs: Laboratory Results - last 24 hr 04/04/18 04/05/18 04/05/18 05:30 06:30 06:30 WBC 9.1 D RBC 3.68 Hgb 10.7 L Hct 32.2 L MCV 87.5 MCH 29.1 MCHC 33.2 RDW 15.5 H Plt Count 215 MPV 9.0 Gran % 68.5 H Lymph % (Auto) 17.1 L Mckean % (Auto) 10.7 H Eos % (Auto) 3.4 Baso % (Auto) 0.3 Gran # 6.26 Lymph # (Auto) 1.6 Mckean # (Auto) 1.0 H Eos # (Auto) 0.3 Baso # (Auto) 0.03 PT INR Sodium 140 Potassium 4.2 Chloride 104 Carbon Dioxide 29 Anion Gap 12 BUN 28 H Creatinine 0.6 L Est GFR ( Amer) > 60 Est GFR (Non-Af Amer) > 60 Random Glucose 125 H Calcium 8.3 L Blood Type A POSITIVE Antibody Screen Negative Crossmatch See Detail BBK History Checked Patient has bt 04/05/18 09:30 WBC RBC Hgb Hct MCV MCH MCHC RDW Plt Count MPV Gran % Lymph % (Auto) Mckean % (Auto) Eos % (Auto) Baso % (Auto) Gran # Lymph # (Auto) Mckean # (Auto) Eos # (Auto) Baso # (Auto) PT 14.9 H INR 1.29 H Sodium Potassium Chloride Carbon Dioxide Anion Gap BUN Creatinine Est GFR ( Amer) Est GFR (Non-Af Amer) Random Glucose Calcium Blood Type Antibody Screen Crossmatch BBK History Checked Assessment & Plan - Assessment and Plan (Free Text) Plan: Assessment abdominal wound infection with panniculitis S/P debridement and wound closure POD #1, previously on wound vacuum, previously grew VRE and E. coli, R/O pyoderma gangrenosum history of acute pulmonary embolism, on anticoagulation HTN DM morbid obesity with BMI 44 Plan on Zyvox and Merrem day 16 - follow up OR pathologies (from yesterday) will monitor clinically
--- NOTE | 2018-04-05 15:31 | HP ---
HISTORY OF PRESENT ILLNESS: The patient is readmitted to the acute care facility from Transitional [facility] Unit. The patient had been taken to the OR yesterday for revision and attempted closure of an abdominal wound. The preoperative diagnosis was nonhealing abdominal pannus wound. Dr. Hassan debrided the edges of the nonhealing wound down to healthy tissue and obtained hemostasis with ligation and electrocautery. PAST MEDICAL HISTORY: Remarkable for pulmonary embolism, abdominal wall cellulitis, hypoglycemia, and an open wall abdominal wound. SOCIAL HISTORY: The patient is a nonsmoker and does not imbibe alcoholic beverages. ALLERGIES: NO KNOWN ALLERGIES. Currently, the patient's only complaint is pain at the surgical incision site. There have been no acute events. PHYSICAL EXAMINATION: VITAL SIGNS: Temperature of 98.1, pulse rate of 84, blood pressure 138/72 with an O2 saturation of 98% on 2 L nasal cannula. HEENT: PERRLA. EOMI. No icterus present. NECK: Supple with full range of motion. There are no bruits or adenopathy appreciated. LUNGS: Clear to auscultation and percussion bilaterally. HEART: With regular rate and rhythm. No murmurs. ABDOMEN: Soft. It is bound in surgical dressings. Bowel sounds are present. EXTREMITIES: Shows trace edema. NEUROLOGIC: There are no focal deficits. LABORATORY DATA: Hemoglobin and hematocrit are 10.7 and 32.2. Chemistry is normal with the exception of BUN of 28, the creatinine is 0.6. Random glucose is 125. IMPRESSION: 1. Revision of an abdominal surgical wound. 2. Status post pulmonary embolus. 3. Hypertension. PLAN: We will do a stat PTT, INR and restart the Coumadin. Continue current medications. Obi Nguyen MD
[2018-04-05] MEDS: Insulin Reg-LOW-Coverage SC SCH ×2 (17:31→23:56)
[2018-04-05] MEDS ORDERED: Linezolid 600 mg in D5W 300 ml 600 MG/300 ML BAG IVPB SCH (22:00)
[2018-04-06] MEDS: Meropenem IV 1 gm in NS 50 ML IVPB SCH ×3 (05:39→21:00)
[2018-04-06] MEDS: oxyCODONE 5 mg Immediate Release Tab PO PRN ×3 (05:55→20:57)
--- NOTE | 2018-04-06 08:02 | CP.PCM.PN ---
Subjective - Date & Time of Evaluation Date of Evaluation: 04/06/18 Time of Evaluation: 08:01 - Subjective Subjective: General Surgery progress note for Dr. Hassan Patient seen and examined this am at bedside. No acute events overnight per nursing. Patient states her pain has been well controlled. Dressing was changed at bedside. Patient complains of pain and soreness at the incision site but denies n/v, f/c and other abdominal pain. Patient mentioned wanting to switch to PO zyvox as the infusion IV is painful. Objective - Vital Signs/Intake and Output Vital Signs (last 24 hours): Temp Pulse Resp BP Pulse Ox 98.4 F 75 20 123/76 96 04/06/18 06:00 04/06/18 06:00 04/06/18 06:00 04/06/18 06:00 04/06/18 06:00 Intake and Output: 04/06/18 04/06/18 06:59 18:59 Intake Total 540 120 Balance 540 120 - Medications Medications: Current Medications Alprazolam (Xanax) 0.25 mg PO Q6H PRN; Protocol PRN Reason: Anxiety Stop: 04/11/18 13:56 Carvedilol (Coreg) 3.125 mg PO BID [facility] Last Admin: 04/05/18 17:29 Dose: 3.125 mg Docusate Sodium (Colace) 100 mg PO DAILY [facility] Last Admin: 04/05/18 09:40 Dose: 100 mg Enoxaparin Sodium (Lovenox) 90 mg SC Q12H [facility] PRN Reason: Protocol Last Admin: 04/05/18 21:53 Dose: 90 mg Fentanyl (Fentanyl) 25 mcg IV Q5M PRN PRN Reason: Pain, moderate (4-7) Last Admin: 04/04/18 14:45 Dose: 25 mcg Furosemide (Lasix) 40 mg PO DAILY [facility] Last Admin: 04/05/18 09:42 Dose: 40 mg Hydrochlorothiazide (Microzide) 12.5 mg PO DAILY [facility] Last Admin: 04/05/18 09:44 Dose: 12.5 mg Meropenem (Merrem Iv 1 Gm Premix) 50 mls @ 100 mls/hr IVPB Q8 [facility] PRN Reason: Protocol Stop: 04/12/18 14:01 Last Admin: 04/06/18 05:39 Dose: 100 mls/hr Linezolid (Zyvox 600mg/300ml D5w) 600 mg in 300 mls @ 200 mls/hr IVPB Q12 [facility] PRN Reason: Protocol Stop: 04/12/18 22:01 Last Admin: 04/05/18 21:41 Dose: 200 mls/hr Insulin Human Regular (Humulin R Low) 0 units SC ACHS [facility] PRN Reason: Protocol Last Admin: 04/05/18 23:56 Dose: Not Given Lisinopril (Zestril) 10 mg PO DAILY [facility] Last Admin: 04/05/18 09:45 Dose: 10 mg Morphine Sulfate (Morphine) 4 mg IVP Q4H PRN PRN Reason: Pain, moderate (4-7) Last Admin: 04/04/18 16:05 Dose: 4 mg Non-Formulary Medication (Fluticasone Furoate [Arnuity Ellipta]) 1 puff IH QAM [facility] Last Admin: 04/05/18 09:42 Dose: 1 puff Non-Formulary Medication (Iron [Iron]) 325 tab PO BID [facility] Last Admin: 04/05/18 17:35 Dose: Not Given Non-Formulary Medication (Umeclidinium Brm/Vilanterol Tr [Anoro Ellipta 62.5-25 Mcg Inh]) [facility] Last Admin: 04/05/18 09:45 Dose: 1 puff Non-Formulary Medication (Vitamin B Complex [Super B-50 Complex]) 1 cap PO DAILY [facility] Last Admin: 04/05/18 12:21 Dose: Not Given Ondansetron HCl (Zofran Inj) 4 mg IVP ONCE PRN PRN Reason: Nausea/Vomiting Oxycodone HCl (Oxycodone Immediate Release Tab) 5 mg PO Q6H PRN PRN Reason: Pain, severe (8-10) Last Admin: 04/06/18 05:55 Dose: 5 mg - Labs Labs: 04/05/18 06:30 04/05/18 06:30 PT 14.9 SECONDS (9.4-12.5) H 04/05/18 09:30 INR 1.29 (0.93-1.08) H 04/05/18 09:30 - Constitutional Appears: Well, Non-toxic, No Acute Distress - Head Exam Head Exam: ATRAUMATIC, NORMOCEPHALIC - ENT Exam ENT Exam: Mucous Membranes Moist - Respiratory Exam Respiratory Exam: NORMAL BREATHING PATTERN - GI/Abdominal Exam GI & Abdominal Exam: Soft. absent: Guarding, Rigid, Rebound Additional comments: incision site is clean and intact with a small amount of serosanguinous non purulent discharge, genesis drain in place, retention sutures in place - Extremities Exam Extremities Exam: absent: Calf Tenderness, Pedal Edema, Tenderness - Psychiatric Exam Psychiatric exam: Normal Affect, Normal Mood - Skin Skin Exam: Intact, Normal Color, Warm Additional comments: well healing surgical wound with retention sutures and genesis drain in place, no signs of purulent discharge Assessment and Plan - Assessment and Plan (Free Text) Assessment: 57 yr old female s/p wound closure on 04/04 after prolonged wound vac care and infection Plan: - continue dressing changes and reinforce as needed - WBC 7.4 continue ABx per ID recommendations, suggest possible PO Zyvox - H/h 10.3/31.6, INR 1.3 today recommend bridging to Coumadin by primary team - continue PT daily - discussed with Dr. Mo Zaldivar, PGY 1
[2018-04-06 08:12] LABS: BASO % 0.3 % (0.0-3.0); EOS % 4.4 % (1.5-5.0); GRAN % 60.3 % (50.0-68.0); HEMOGLOBIN 10.3 g/dL (12.0-16.0); LYMPH % 22.6 % (22.0-35.0); MEAN CELL VOLUME 89.8 fl (80.0-105.0); MEAN CORPUSCULAR HEMOGLOBIN 29.3 pg (25.0-35.0); MEAN CORPUSCULAR HGB CONC 32.6 g/dl (31.0-37.0); MEAN PLATELET VOLUME 9.6 fl (7.0-11.0); MONO % 12.4 % (1.0-6.0); RBC 3.52 10^6/uL (3.5-6.1); RED CELL DISTRIBUTION WIDTH 15.7 % (11.5-14.5); WHITE BLOOD COUNT 7.6 10^3/ul (4.5-11.0)
[2018-04-06 08:13] LABS: BASO # 0.02 K/mm3 (0.0-2.0); EOS # 0.3 (0.0-0.7); GRAN # 4.56 (1.4-6.5); LYMPH # 1.7 (1.2-3.4); MONO # 0.9 (0.1-0.6)
[2018-04-06] MEDS: Insulin Reg-LOW-Coverage SC SCH ×4 (08:25→22:00)
[2018-04-06 08:28] LABS: INR 1.35 (0.93-1.08); PROTHROMBIN TIME 15.6 SECONDS (9.4-12.5)
--- NOTE | 2018-04-06 09:57 | PN ---
SUBJECTIVE: The patient was seen and examined at bedside on the remote telemetry hinkle. No acute events overnight. She remains afebrile and hemodynamically stable. The patient is doing well s/p removal of her wound VAC and this morning offers no complaints. OBJECTIVE: VITAL SIGNS: Temperature 98.2, pulse 78, blood pressure 120/76, respiratory rate 18, oxygen saturation 98% on room air. GENERAL: Morbidly obese woman, sitting up in her chair, in no apparent distress. HEENT: PERRL, EOMI. No scleral icterus. No conjunctival pallor. NECK: No JVD. LUNGS: Clear to auscultation. CARDIOVASCULAR: Regular rate and rhythm. Normal S1 and S2. ABDOMEN: Obese. Normoactive bowel sounds. Soft, nontender and nondistended. Surgical dressing in place. EXTREMITIES: Trace lower extremity edema bilaterally. NEUROLOGIC: Awake, alert and oriented x 3. No focal motor deficits. LABORATORY DATA: Morning labs are pending. ASSESSMENT: The patient is a 57 year old woman with multiple medical comorbidities including morbid obesity and a chronic nonhealing abdominal wall wound who presented for electively scheduled surgical intervention and is now s/p OR debridement s/p wound VAC. PLAN: 1. Cellulitis of the abdomen with stage II pressure ulcer s/p OR debridement s/ p removal of wound VAC. Continue postoperative care as per Dr. Hassan and the surgical team. Continue with current antimicrobials as per Dr. Gambino. 2. Dilated cardiomyopathy with an EF of 30%. Continue current medications. 3. History of DVT and PE s/p IVC filter. We will discontinue therapeutic Lovenox and restart the patient on Coumadin 4 mg p.o. daily. 4. Hypertension. Blood pressure controlled. Continue with current medications. 5. Iron-deficiency anemia. Continue Feosol 324 mg p.o. b.i.d. 6. NIDDM. Continue medium-dose insulin sliding scale for coverage. 7. Anxiety disorder. Continue Xanax 0.25 mg p.o. daily. 8. COPD. Continue with supplemental oxygen and bronchodilators as needed. 9. Morbid obesity. 10. Prophylaxis. GI prophylaxis is not indicated as the patient is eating. The patient will be restarted on Coumadin thus DVT prophylaxis is not indicated. CODE STATUS: Full code. Jorge Nguyen MD [facility] # [id number] ISMAEL
[2018-04-06] MEDS: Non Formulary Medication (Fluticasone Furoate [Arnuity Ellipta] 1 PUFF) IH SCH (10:32)
[2018-04-06] MEDS: IRON PO SCH ×2 (10:33→17:30)
[2018-04-06] MEDS: Non Formulary Medication (Umeclidinium Brm/Vilanterol Tr [Anoro Ellipta 62.5-25 Mcg Inh] 1 IH SCH (10:34)
[2018-04-06] MEDS: Non Formulary Medication (Vitamin B Complex [Super B-50 Complex] 1 CAP) PO SCH (10:35)
--- NOTE | 2018-04-06 12:55 | PN ---
DATE: 04/06/2018 SUBJECTIVE: The patient is in bed, in no acute distress, was seen this morning in room 369. No fevers or chills. Tolerating the antibiotics well. PHYSICAL EXAMINATION: VITAL SIGNS: Temperature is 98, blood pressure is 120/70, respiratory rate of 18. HEENT: Examination is unremarkable. NECK: Supple. LUNGS: Have decreased breath sounds. HEART: Normal S1, S2. ABDOMEN: Soft, nontender. DATA: Laboratory examination reveals a white count of 7.6, hemoglobin of 10, platelets of 188, coagulation is noted. Chemistry reveals a BUN of 28, creatinine of 0.6 and Microbiology is noted, we had VRE and E. coli from 03/21/2018. ASSESSMENT AND PLAN: This is a 57-year-old female with hypertension, diabetes, morbid obesity, multiple debridements, chronic abdominal wound and admitted with abdominal wound infection with panniculitis, status post debridement and wound closure, both procedure day #2. Previously the patient was on a wound VAC and had grown VRE and Escherichia coli, must rule out underlying pyoderma gangrenosum in a patient with a history of acute pulmonary emboli and anticoagulation, hypertension, diabetes, morbid obesity, body mass index of 44, on Zyvox and meropenem day #17. Pathology report is pending. Meropenem is active and as is the linezolid. We will change the linezolid to p.o. Brock Gambino MD
[2018-04-07] MEDS: oxyCODONE 5 mg Immediate Release Tab PO PRN ×4 (06:05→23:35)
[2018-04-07] MEDS: Meropenem IV 1 gm in NS 50 ML IVPB SCH ×3 (06:06→21:48)
[2018-04-07 07:49] LABS: INR 1.26 (0.93-1.08); PROTHROMBIN TIME 14.6 SECONDS (9.4-12.5)
[2018-04-07] MEDS: Insulin Reg-LOW-Coverage SC SCH ×3 (08:29→17:10)
[2018-04-07 09:32] LABS: BASO # 0.01 K/mm3 (0.0-2.0); BASO % 0.2 % (0.0-3.0); EOS # 0.3 (0.0-0.7); EOS % 4.6 % (1.5-5.0); GRAN # 3.86 (1.4-6.5); GRAN % 58.6 % (50.0-68.0); HEMOGLOBIN 10.8 g/dL (12.0-16.0); LYMPH # 1.5 (1.2-3.4); LYMPH % 22.8 % (22.0-35.0); MEAN CELL VOLUME 87.7 fl (80.0-105.0); MEAN CORPUSCULAR HEMOGLOBIN 29.5 pg (25.0-35.0); MEAN CORPUSCULAR HGB CONC 33.6 g/dl (31.0-37.0); MONO # 0.9 (0.1-0.6); MONO % 13.8 % (1.0-6.0); RBC 3.66 10^6/uL (3.5-6.1); RED CELL DISTRIBUTION WIDTH 15.9 % (11.5-14.5); WHITE BLOOD COUNT 6.6 10^3/ul (4.5-11.0)
[2018-04-07] MEDS: Non Formulary Medication (Vitamin B Complex [Super B-50 Complex] 1 CAP) PO SCH (10:07)
[2018-04-07] MEDS: Non Formulary Medication (Umeclidinium Brm/Vilanterol Tr [Anoro Ellipta 62.5-25 Mcg Inh] 1 IH SCH (10:08)
[2018-04-07] MEDS: IRON PO SCH (10:08)
[2018-04-07] MEDS: Non Formulary Medication (Fluticasone Furoate [Arnuity Ellipta] 1 PUFF) IH SCH (10:08)
--- NOTE | 2018-04-07 11:15 | CP.PCM.PN ---
Subjective - Date & Time of Evaluation Date of Evaluation: 04/07/18 Time of Evaluation: 08:30 - Subjective Subjective: General Surgery progress note for Dr. Hassan Patient seen and examined this am at bedside. Dressings were changed at bedside. Patient is feeling well, her pain is well controlled, she is ambulating in her room and working with PT. patient tolerating diet having BMs, denies n/v/f/c Objective - Vital Signs/Intake and Output Vital Signs (last 24 hours): Temp Pulse Resp BP Pulse Ox 98.2 F 80 18 118/70 97 04/07/18 06:00 04/07/18 10:14 04/07/18 06:00 04/07/18 10:17 04/07/18 06:00 Intake and Output: 04/07/18 04/07/18 06:59 18:59 Intake Total 780 Balance 780 - Medications Medications: Current Medications Alprazolam (Xanax) 0.25 mg PO Q6H PRN; Protocol PRN Reason: Anxiety Stop: 04/11/18 13:56 Carvedilol (Coreg) 3.125 mg PO BID [facility] Last Admin: 04/07/18 10:13 Dose: 3.125 mg Docusate Sodium (Colace) 100 mg PO BID [facility] Last Admin: 04/07/18 10:13 Dose: 100 mg Ferrous Sulfate (Feosol) 324 mg PO BID [facility] Last Admin: 04/07/18 10:14 Dose: 324 mg Furosemide (Lasix) 40 mg PO DAILY [facility] Last Admin: 04/07/18 10:17 Dose: 40 mg Hydrochlorothiazide (Microzide) 12.5 mg PO DAILY [facility] Last Admin: 04/07/18 10:14 Dose: 12.5 mg Meropenem (Merrem Iv 1 Gm Premix) 50 mls @ 100 mls/hr IVPB Q8 [facility] PRN Reason: Protocol Stop: 04/12/18 14:01 Last Admin: 04/07/18 06:06 Dose: 100 mls/hr Insulin Human Regular (Humulin R Low) 0 units SC ACHS [facility] PRN Reason: Protocol Last Admin: 04/07/18 08:29 Dose: Not Given Linezolid (Zyvox) 600 mg PO BID [facility] PRN Reason: Protocol Stop: 04/15/18 10:01 Last Admin: 04/07/18 10:13 Dose: 600 mg Lisinopril (Zestril) 10 mg PO DAILY [facility] Last Admin: 04/07/18 10:14 Dose: 10 mg Non-Formulary Medication (Fluticasone Furoate [Arnuity Ellipta]) 1 puff IH QAM [facility] Last Admin: 04/07/18 10:08 Dose: 1 puff Non-Formulary Medication (Iron [Iron]) 325 tab PO BID [facility] Last Admin: 04/07/18 10:08 Dose: Not Given Non-Formulary Medication (Umeclidinium Brm/Vilanterol Tr [Anoro Ellipta 62.5-25 Mcg Inh]) 1 puff IH QAM [facility] Last Admin: 04/07/18 10:08 Dose: 1 puff Non-Formulary Medication (Vitamin B Complex [Super B-50 Complex]) 1 cap PO DAILY [facility] Last Admin: 04/07/18 10:07 Dose: Not Given Ondansetron HCl (Zofran Inj) 4 mg IVP ONCE PRN PRN Reason: Nausea/Vomiting Oxycodone HCl (Oxycodone Immediate Release Tab) 5 mg PO Q6H PRN PRN Reason: Pain, severe (8-10) Last Admin: 04/07/18 06:05 Dose: 5 mg Sennosides (Senokot Tab) 17.2 mg PO HS [facility] Last Admin: 04/06/18 20:59 Dose: 17.2 mg Warfarin Sodium (Coumadin) 4 mg PO 1800 [facility] PRN Reason: Protocol Last Admin: 04/06/18 17:29 Dose: 4 mg - Labs Labs: 04/07/18 09:15 04/05/18 06:30 PT 14.6 SECONDS (9.4-12.5) H 04/07/18 07:00 INR 1.26 (0.93-1.08) H 04/07/18 07:00 APTT 33.0 Seconds (25.1-36.5) 04/06/18 07:00 - Constitutional Appears: Well, Non-toxic, No Acute Distress - Head Exam Head Exam: ATRAUMATIC, NORMOCEPHALIC - ENT Exam ENT Exam: Mucous Membranes Moist - Respiratory Exam Respiratory Exam: NORMAL BREATHING PATTERN - Cardiovascular Exam Cardiovascular Exam: +S1, +S2 - GI/Abdominal Exam GI & Abdominal Exam: Soft, Tenderness. absent: Firm, Guarding, Rigid, Rebound Additional comments: mild tenderness at incision site with dressing change - Extremities Exam Extremities Exam: absent: Calf Tenderness, Pedal Edema, Tenderness - Neurological Exam Neurological Exam: Alert, Awake, Oriented x3 - Psychiatric Exam Psychiatric exam: Normal Affect, Normal Mood - Skin Skin Exam: Dry, Intact, Normal Color, Warm. absent: Erythema Additional comments: incision is clean dry and intact with serous non purulent drainage on the dressings, retention sutures and genesis drains remain in place Assessment and Plan - Assessment and Plan (Free Text) Assessment: 57 yr old female s/p panniculitis wound closure on 04/04 POD 3, recovering well Plan: - continue dressing changes and reinforce as needed - WBC 6.6 continue ABx per ID recommendations - H/h 10.8/32.1, INR 1.48 today, bridge to coumadin per primary team - continue PT daily - will discus plan with Dr. Hassan, all further recs per him Isamar Zaldivar, PGY 1
--- NOTE | 2018-04-07 15:08 | PN ---
DATE: 04/07/2018 SUBJECTIVE: The patient is in bed, in no acute distress, nontoxic. PHYSICAL EXAMINATION: VITAL SIGNS: Temperature is 98, blood pressure is 118/70, respiratory rate of 18. HEENT: Examination of HEENT is unremarkable. NECK: Supple. LUNGS: Have decreased breath sounds. HEART: Normal S1, S2. ABDOMEN: Soft, nontender. LABORATORY DATA: Laboratory examination reveals the patient's white count is 6.6. Coagulation is noted. Chemistries are reviewed. Microbiology is reviewed. Review of orders reveals the patient to be on p.o. Zyvox and IV meropenem. ASSESSMENT AND PLAN: A 57-year-old female with hypertension, diabetes, morbid obesity, multiple debridement, chronic abdominal wound and admitted with abdominal wound infection and panniculitis, status post debridement and wound closure. Postprocedure day #3 and wound vacuum-assisted closure and grown vancomycin-resistant Enterococcus and Escherichia coli. Must rule out underlying pyoderma gangrenosum. Waiting for pathology. On Zyvox and meropenem, day #18. The Zyvox is switched to p.o. as per the patient's request. We will follow with you. Brock Gambino MD
[2018-04-08] MEDS: Meropenem IV 1 gm in NS 50 ML IVPB SCH ×2 (05:51→13:30)
[2018-04-08] MEDS: oxyCODONE 5 mg Immediate Release Tab PO PRN ×3 (05:51→17:30)
[2018-04-08 06:52] LABS: PROTHROMBIN TIME 14.6 SECONDS (9.4-12.5)
[2018-04-08 06:53] LABS: INR 1.26 (0.93-1.08)
--- NOTE | 2018-04-08 08:04 | CP.PCM.PN ---
Subjective - Date & Time of Evaluation Date of Evaluation: 04/08/18 Time of Evaluation: 08:01 - Subjective Subjective: General Surgery Progress Note for: Dr. Hassan Pt was seen and examined this morning at bedside. Other than some serosangiunous drainage on dressing, no acute overnight events per nursing. Dressing changed in room. She denies any fevers, chills, nausea, vomiting, or abdominal pain. She states that her abdominal pain is adequately controlled on pain regimen at this time. Objective - Vital Signs/Intake and Output Vital Signs (last 24 hours): Temp Pulse Resp BP Pulse Ox 97.6 F 72 20 104/61 98 04/07/18 17:32 04/07/18 17:32 04/07/18 17:32 04/07/18 17:32 04/07/18 17:32 Intake and Output: 04/08/18 04/08/18 06:59 18:59 Intake Total 840 Balance 840 - Medications Medications: Current Medications Alprazolam (Xanax) 0.25 mg PO Q6H PRN; Protocol PRN Reason: Anxiety Stop: 04/11/18 13:56 Carvedilol (Coreg) 3.125 mg PO BID [facility] Last Admin: 04/07/18 17:07 Dose: 3.125 mg Docusate Sodium (Colace) 100 mg PO BID [facility] Last Admin: 04/07/18 17:07 Dose: 100 mg Ferrous Sulfate (Feosol) 324 mg PO BID [facility] Last Admin: 04/07/18 17:08 Dose: 324 mg Furosemide (Lasix) 40 mg PO DAILY [facility] Last Admin: 04/07/18 10:17 Dose: 40 mg Hydrochlorothiazide (Microzide) 12.5 mg PO DAILY [facility] Last Admin: 04/07/18 10:14 Dose: 12.5 mg Meropenem (Merrem Iv 1 Gm Premix) 50 mls @ 100 mls/hr IVPB Q8 [facility] PRN Reason: Protocol Stop: 04/12/18 14:01 Last Admin: 04/08/18 05:51 Dose: 100 mls/hr Insulin Human Regular (Humulin R Low) 0 units SC ACHS [facility] PRN Reason: Protocol Last Admin: 04/07/18 17:10 Dose: Not Given Linezolid (Zyvox) 600 mg PO BID [facility] PRN Reason: Protocol Stop: 04/15/18 10:01 Last Admin: 04/07/18 17:07 Dose: 600 mg Lisinopril (Zestril) 10 mg PO DAILY [facility] Last Admin: 04/07/18 10:14 Dose: 10 mg Non-Formulary Medication (Iron [Iron]) 325 tab PO BID [facility] Last Admin: 04/07/18 10:08 Dose: Not Given Non-Formulary Medication (Vitamin B Complex [Super B-50 Complex]) 1 cap PO DAILY [facility] Last Admin: 04/07/18 10:07 Dose: Not Given (Fluticasone Furoate [Arnuity Ellipta] 1 Puff) 1 puff IH QAM [facility] (Umeclidinium Brm/Vilanterol Tr [Anoro Ellipta 62.5-25 Mcg Inh] 1 puff IH QAM [facility] Ondansetron HCl (Zofran Inj) 4 mg IVP ONCE PRN PRN Reason: Nausea/Vomiting Oxycodone HCl (Oxycodone Immediate Release Tab) 5 mg PO Q6H PRN PRN Reason: Pain, severe (8-10) Last Admin: 04/08/18 05:51 Dose: 5 mg Sennosides (Senokot Tab) 17.2 mg PO HS [facility] Last Admin: 04/07/18 21:48 Dose: 17.2 mg Warfarin Sodium (Coumadin) 4 mg PO 1800 [facility] PRN Reason: Protocol Last Admin: 04/07/18 17:07 Dose: 4 mg - Labs Labs: 04/07/18 09:15 04/05/18 06:30 PT 14.6 SECONDS (9.4-12.5) H 04/08/18 06:00 INR 1.26 (0.93-1.08) H 04/08/18 06:00 APTT 33.0 Seconds (25.1-36.5) 04/06/18 07:00 - Constitutional Appears: Well, Non-toxic, No Acute Distress - Head Exam Head Exam: ATRAUMATIC, NORMOCEPHALIC - Eye Exam Eye Exam: EOMI, Normal appearance - Respiratory Exam Respiratory Exam: NORMAL BREATHING PATTERN. absent: Accessory Muscle Use, Respiratory Distress - Cardiovascular Exam Cardiovascular Exam: +S1, +S2 - GI/Abdominal Exam GI & Abdominal Exam: Soft, Tenderness (nicolás-incisional tenderness), Normal Bowel Sounds. absent: Distended, Firm, Guarding, Rigid Additional comments: Linear incision present in LLQ with genesis drain, madhuri, retention sutures in place. No surrounding erythema or purulent discharge noted around incision. - Neurological Exam Neurological Exam: Alert, Awake, Oriented x3 - Psychiatric Exam Psychiatric exam: Normal Affect, Normal Mood - Skin Skin Exam: Dry, Intact, Normal Color, Warm Additional comments: Except where noted above. Assessment and Plan - Assessment and Plan (Free Text) Assessment: Pt is a 57 yr old female s/p panniculitis excision and wound closure POD 4, recovering well Plan: - Pts INR = 1.26, cont bridging with warfarin - Switch to PO abx for d/c plan - OOB to chair - cont dressing changes - Cont PT session - Discussed with Dr. Hassan
--- NOTE | 2018-04-08 09:32 | PN ---
SUBJECTIVE: The patient was seen and examined at bedside on the remote telemetry hinkle. No acute events overnight. She remains afebrile and hemodynamically stable. This morning she feels well and offers no complaints. OBJECTIVE: VITAL SIGNS: Temperature 98.2, pulse 78, blood pressure 129/80, respiratory rate 18, oxygen saturation 97% on room air. GENERAL: Morbidly obese woman, lying in bed, in no apparent distress. HEENT: PERRL, EOMI. No scleral icterus. No conjunctival pallor. NECK: No JVD. LUNGS: Clear to auscultation. CARDIOVASCULAR: Regular rate and rhythm. Normal S1 and S2. ABDOMEN: Obese. Normoactive bowel sounds. Soft, nontender and nondistended. Surgical dressing in place. EXTREMITIES: Trace lower extremity edema bilaterally. NEUROLOGIC: Awake, alert and oriented x 3. No focal motor deficits. LABORATORY DATA: Morning labs are pending. ASSESSMENT: The patient is a 57 year old woman with multiple medical comorbidities including morbid obesity and a chronic nonhealing abdominal wall wound who presented for electively scheduled surgical intervention and is now s/p OR debridement s/p removal of wound VAC. PLAN: 1. Cellulitis of the abdomen with stage II pressure ulcer s/p OR debridement s/ p removal of wound VAC. Continue postoperative care as per Dr. Hassan and surgical team. Continue with antimicrobials as per Dr. Gambino. 2. Dilated cardiomyopathy with an EF of 30%. Continue with current medications. 3. History of DVT and PE s/p IVC filter. The patient is on Coumadin 4 mg p.o. daily but with subtherapeutic INR. We will increase Coumadin to 6 mg p.o. daily. Continue to monitor INR daily with goal 2-3. 4. Hypertension. BP controlled. Continue with current medications. 5. Iron-deficiency anemia. Continue Feosol 324 mg p.o. b.i.d. 6. NIDDM. Continue medium-dose insulin sliding scale for coverage. 7. Anxiety disorder. Continue Xanax 0.25 mg p.o. daily. 8. COPD. Continue supplemental oxygen and bronchodilators as needed. 9. Morbid obesity. 10. Prophylaxis. GI prophylaxis is not indicated as the patient is eating. The patient remains on Coumadin thus DVT prophylaxis not indicated. CODE STATUS: Full code. Jorge Nguyen MD Julio Cesar # [id number] ISMAEL
[2018-04-08] MEDS: Insulin Reg-LOW-Coverage SC SCH ×4 (09:45→21:33)
[2018-04-08] MEDS: (Fluticasone Furoate [Arnuity Ellipta] 1 PUFF) IH SCH (09:45)
[2018-04-08] MEDS: IRON PO SCH ×2 (09:46→17:52)
[2018-04-08] MEDS: Non Formulary Medication (Vitamin B Complex [Super B-50 Complex] 1 CAP) PO SCH (09:47)
--- NOTE | 2018-04-08 14:50 | CP.PCM.PN ---
Subjective - Date & Time of Evaluation Date of Evaluation: 04/08/18 Time of Evaluation: 11:05 - Subjective Subjective: Less abdominal pain, no diarrhea, no nausea, no fevers. Objective - Vital Signs/Intake and Output Vital Signs (last 24 hours): Temp Pulse Resp BP Pulse Ox 97.9 F 80 18 129/80 97 04/08/18 08:19 04/08/18 09:48 04/08/18 08:19 04/08/18 09:48 04/08/18 08:19 Intake and Output: 04/08/18 04/08/18 06:59 18:59 Intake Total 840 Balance 840 - Medications Medications: Current Medications Alprazolam (Xanax) 0.25 mg PO Q6H PRN; Protocol PRN Reason: Anxiety Stop: 04/11/18 13:56 Carvedilol (Coreg) 3.125 mg PO BID [facility] Last Admin: 04/08/18 09:44 Dose: 3.125 mg Docusate Sodium (Colace) 100 mg PO BID [facility] Last Admin: 04/08/18 09:44 Dose: 100 mg Ferrous Sulfate (Feosol) 324 mg PO BID [facility] Last Admin: 04/08/18 09:45 Dose: 324 mg Furosemide (Lasix) 40 mg PO DAILY [facility] Last Admin: 04/08/18 09:46 Dose: Not Given Hydrochlorothiazide (Microzide) 12.5 mg PO DAILY [facility] Last Admin: 04/08/18 09:47 Dose: 12.5 mg Meropenem (Merrem Iv 1 Gm Premix) 50 mls @ 100 mls/hr IVPB Q8 [facility] PRN Reason: Protocol Stop: 04/12/18 14:01 Last Admin: 04/08/18 05:51 Dose: 100 mls/hr Insulin Human Regular (Humulin R Low) 0 units SC ACHS [facility] PRN Reason: Protocol Last Admin: 04/08/18 09:45 Dose: Not Given Linezolid (Zyvox) 600 mg PO BID [facility] PRN Reason: Protocol Stop: 04/15/18 10:01 Last Admin: 04/08/18 09:48 Dose: 600 mg Lisinopril (Zestril) 10 mg PO DAILY [facility] Last Admin: 04/08/18 09:48 Dose: 10 mg Non-Formulary Medication (Iron [Iron]) 325 tab PO BID [facility] Last Admin: 04/08/18 09:46 Dose: Not Given Non-Formulary Medication (Vitamin B Complex [Super B-50 Complex]) 1 cap PO DAILY [facility] Last Admin: 04/08/18 09:47 Dose: Not Given (Fluticasone Furoate [Arnuity Ellipta] 1 Puff) 1 puff IH QAM [facility] Last Admin: 04/08/18 09:45 Dose: 1 puff (Umeclidinium Brm/Vilanterol Tr [Anoro Ellipta 62.5-25 Mcg Inh] 1 puff IH QAM [facility] Last Admin: 04/08/18 09:47 Dose: 1 puff Ondansetron HCl (Zofran Inj) 4 mg IVP ONCE PRN PRN Reason: Nausea/Vomiting Oxycodone HCl (Oxycodone Immediate Release Tab) 5 mg PO Q6H PRN PRN Reason: Pain, severe (8-10) Last Admin: 04/08/18 05:51 Dose: 5 mg Sennosides (Senokot Tab) 17.2 mg PO HS [facility] Last Admin: 04/07/18 21:48 Dose: 17.2 mg Warfarin Sodium (Coumadin) 6 mg PO 1800 [facility] PRN Reason: Protocol - Labs Labs: 04/07/18 09:15 04/05/18 06:30 PT 14.6 SECONDS (9.4-12.5) H 04/08/18 06:00 INR 1.26 (0.93-1.08) H 04/08/18 06:00 APTT 33.0 Seconds (25.1-36.5) 04/06/18 07:00 - Constitutional Appears: Non-toxic, Chronically Ill - Head Exam Head Exam: NORMAL INSPECTION - Respiratory Exam Respiratory Exam: Decreased Breath Sounds - Cardiovascular Exam Cardiovascular Exam: +S1, +S2 - GI/Abdominal Exam GI & Abdominal Exam: Soft. absent: Tenderness Additional comments: dressings in place Assessment and Plan - Assessment and Plan (Free Text) Plan: Assessment abdominal wound infection with panniculitis S/P debridement and wound closure POD #4, previously on wound vacuum, previously grew VRE and E. coli, R/O pyoderma gangrenosum history of acute pulmonary embolism, on anticoagulation HTN DM morbid obesity with BMI 44 Plan on Zyvox and Merrem day 19 - follow up OR pathologies and cultures - discussed with Surgery that they sent samples from the time of wound closure -should get another week of antibiotics - based on previous cultures, patient can be on Zyvox and Vantin - should follow up with Surgery as an outpatient
[2018-04-08] MEDS: Cefpodoxime (Vantin) 200 mg Tab PO SCH (21:36)
[2018-04-09] MEDS: oxyCODONE 5 mg Immediate Release Tab PO PRN ×3 (01:52→21:48)
[2018-04-09 06:43] LABS: BASO # 0.03 K/mm3 (0.0-2.0); BASO % 0.4 % (0.0-3.0); EOS # 0.4 (0.0-0.7); EOS % 5.3 % (1.5-5.0); GRAN # 4.14 (1.4-6.5); GRAN % 57.8 % (50.0-68.0); HEMOGLOBIN 12.1 g/dL (12.0-16.0); LYMPH % 28.5 % (22.0-35.0); MEAN CELL VOLUME 89.1 fl (80.0-105.0); MEAN CORPUSCULAR HEMOGLOBIN 29.3 pg (25.0-35.0); MEAN CORPUSCULAR HGB CONC 32.9 g/dl (31.0-37.0); MEAN PLATELET VOLUME 9.2 fl (7.0-11.0); MONO # 0.6 (0.1-0.6); RBC 4.13 10^6/uL (3.5-6.1); RED CELL DISTRIBUTION WIDTH 15.9 % (11.5-14.5); WHITE BLOOD COUNT 7.2 10^3/ul (4.5-11.0)
[2018-04-09 06:48] LABS: INR 1.24 (0.93-1.08); PROTHROMBIN TIME 14.3 SECONDS (9.4-12.5)
[2018-04-09 07:02] LABS: ALB/GLOB RATIO 0.9 (1.1-1.8); ALBUMIN 3.7 g/dL (3.0-4.8); ALT/SGPT 31 U/L (7-56); AST/SGOT 23 U/L (14-36); BLOOD UREA NITROGEN 27 mg/dL (7-21); CALCIUM 9.1 mg/dL (8.4-10.5); GFR AFRICAN-AMERICAN > 60; GFR NON-AFRICAN AMERICAN > 60
[2018-04-09] MEDS: Insulin Reg-LOW-Coverage SC SCH ×4 (07:49→22:07)
--- NOTE | 2018-04-09 08:50 | PN ---
SUBJECTIVE: The patient was seen and examined at bedside on the remote telemetry hinkle. No acute events overnight. She remains afebrile and hemodynamically stable. OBJECTIVE: VITAL SIGNS: Temperature 97.3, pulse 80, blood pressure 129/80, respiratory rate 18, oxygen saturation 96% on room air. GENERAL: Morbidly obese woman, sitting up in bed in no apparent distress. HEENT: PERRL, EOMI. No scleral icterus. No conjunctival pallor. NECK: No JVD. LUNGS: Clear to auscultation. CARDIOVASCULAR: Regular rate and rhythm. Normal S1 and S2. ABDOMEN: Obese, normoactive bowel sounds, soft, nontender and nondistended. Surgical dressing in place. EXTREMITIES: Trace lower extremity edema bilaterally. NEUROLOGIC: Awake, alert and oriented x 3. No focal motor deficits. LABORATORY DATA: CBC reviewed and unremarkable. CMP reviewed and unremarkable. INR 1.24. ASSESSMENT: The patient is a 57 year old woman with multiple medical comorbidities including morbid obesity and a chronic nonhealing abdominal wall wound who presented for electively scheduled surgical intervention and is now s/p OR debridement s/p removal of wound VAC. PLAN: 1. Cellulitis of the abdomen with stage II pressure ulcer s/p OR debridement d/ p removal of wound VAC. Continue with postoperative care as per Dr. Hassan and the surgical team. Input from Dr. Ross noted and appreciated and the patient remains on oral antibiotics consisting of Linezolid 600 mg p.o. b.i.d. and Vantin 200 mg p.o. q. 12 hours. 2. Dilated cardiomyopathy with an ejection fraction of 30%. Continue with current medications. 3. History of DVT and PE. Continue Coumadin 6 mg p.o. daily. Continue to monitor INR daily with goal INR 2-3. 4. Hypertension. Blood pressure controlled. Continue current medications. 5. Iron-deficiency anemia. Continue Feosol 324 mg p.o. b.i.d. 6. NIDDM. Continue medium-dose insulin sliding scale for coverage. 7. Anxiety disorder. Continue Xanax 0.25 mg p.o. daily. 8. COPD. Continue supplemental oxygen and bronchodilators as needed. 9. Morbid obesity. 10. Prophylaxis. GI prophylaxis is not indicated as the patient is eating. The patient remains on Coumadin thus DVT prophylaxis is not indicated. 11. Disposition. The patient is requesting to be discharged home thus we will speak with the social workers to ensure that visiting nursing services are in place in anticipation of the patient's discharge and also that the oral antibiotic regimen is not cost prohibitive. CODE STATUS: Full code. Jorge Nguyen MD MTDD
[2018-04-09] MEDS: (Fluticasone Furoate [Arnuity Ellipta] 1 PUFF) IH SCH (09:27)
[2018-04-09] MEDS: Cefpodoxime (Vantin) 200 mg Tab PO SCH ×2 (09:29→21:47)
[2018-04-09] MEDS: IRON PO SCH (09:31)
[2018-04-09] MEDS ORDERED: Nystatin 100,000 Units/gm Cream(15 gm) TOP SCH (10:00)
--- NOTE | 2018-04-09 10:04 | CP.PCM.PN ---
Subjective - Date & Time of Evaluation Date of Evaluation: 04/09/18 Time of Evaluation: 10:01 - Subjective Subjective: Pt was seen and examined this morning at bedside. No acute overnight events per nursing. She deneis any fever, chills, n/v, abdominal pain and states that she is ambulating well. She expresses interest in going home. Dressing was changed in the room. Objective - Vital Signs/Intake and Output Vital Signs (last 24 hours): Temp Pulse Resp BP Pulse Ox 97.3 F L 72 91 H 119/72 96 04/08/18 18:00 04/09/18 09:30 04/08/18 18:00 04/09/18 09:30 04/08/18 18:00 - Medications Medications: Current Medications Alprazolam (Xanax) 0.25 mg PO Q6H PRN; Protocol PRN Reason: Anxiety Stop: 04/11/18 13:56 Last Admin: 04/08/18 11:23 Dose: 0.25 mg Carvedilol (Coreg) 3.125 mg PO BID [facility] Last Admin: 04/09/18 09:30 Dose: 3.125 mg Cefpodoxime Proxetil (Vantin) 200 mg PO Q12 [facility] PRN Reason: Protocol Stop: 04/15/18 22:01 Last Admin: 04/09/18 09:29 Dose: 200 mg Docusate Sodium (Colace) 100 mg PO BID [facility] Last Admin: 04/09/18 09:30 Dose: 100 mg Ferrous Sulfate (Feosol) 324 mg PO BID [facility] Last Admin: 04/09/18 09:30 Dose: 324 mg Furosemide (Lasix) 40 mg PO DAILY [facility] Last Admin: 04/09/18 09:30 Dose: 40 mg Hydrochlorothiazide (Microzide) 12.5 mg PO DAILY [facility] Last Admin: 04/09/18 09:29 Dose: 12.5 mg Insulin Human Regular (Humulin R Low) 0 units SC ACHS [facility] PRN Reason: Protocol Last Admin: 04/08/18 21:33 Dose: Not Given Linezolid (Zyvox) 600 mg PO BID [facility] PRN Reason: Protocol Stop: 04/15/18 10:01 Last Admin: 04/09/18 09:29 Dose: 600 mg Lisinopril (Zestril) 10 mg PO DAILY [facility] Last Admin: 04/09/18 09:29 Dose: 10 mg Non-Formulary Medication (Iron [Iron]) 325 tab PO BID [facility] Last Admin: 04/09/18 09:31 Dose: Not Given Non-Formulary Medication (Vitamin B Complex [Super B-50 Complex]) 1 cap PO DAILY [facility] Last Admin: 04/08/18 09:47 Dose: Not Given (Fluticasone Furoate [Arnuity Ellipta] 1 Puff) 1 puff IH QAM [facility] Last Admin: 04/09/18 09:27 Dose: 1 puff (Umeclidinium Brm/Vilanterol Tr [Anoro Ellipta 62.5-25 Mcg Inh] 1 puff IH QAM [facility] Last Admin: 04/09/18 09:28 Dose: 1 puff Nystatin (Mycostatin Cream) 0 ea TOP DAILY [facility] Ondansetron HCl (Zofran Inj) 4 mg IVP ONCE PRN PRN Reason: Nausea/Vomiting Oxycodone HCl (Oxycodone Immediate Release Tab) 5 mg PO Q6H PRN PRN Reason: Pain, severe (8-10) Last Admin: 04/09/18 08:46 Dose: 5 mg Sennosides (Senokot Tab) 17.2 mg PO HS [facility] Last Admin: 04/08/18 21:34 Dose: 17.2 mg Warfarin Sodium (Coumadin) 6 mg PO 1800 [facility] PRN Reason: Protocol Last Admin: 04/08/18 17:31 Dose: 6 mg - Labs Labs: 04/09/18 05:45 04/09/18 05:45 PT 14.3 SECONDS (9.4-12.5) H 04/09/18 05:45 INR 1.24 (0.93-1.08) H 04/09/18 05:45 APTT 33.0 Seconds (25.1-36.5) 04/06/18 07:00 - Constitutional Appears: Well, Non-toxic, No Acute Distress - Head Exam Head Exam: ATRAUMATIC, NORMOCEPHALIC - Eye Exam Eye Exam: EOMI, Normal appearance - Respiratory Exam Respiratory Exam: NORMAL BREATHING PATTERN. absent: Accessory Muscle Use, Respiratory Distress - Cardiovascular Exam Cardiovascular Exam: +S1, +S2 - GI/Abdominal Exam GI & Abdominal Exam: Soft, Tenderness (nicolás-incisional tenderness particularly on the left side of incision.), Normal Bowel Sounds. absent: Distended, Firm, Guarding, Rigid Additional comments: Linear incision present in LLQ with madhuri and retention sutures in place. No surrounding erythema or purulent discharge noted around incision. Small area of erythema noted under pannicular skin fold on LLQ. - Neurological Exam Neurological Exam: Alert, Awake, Normal Gait, Oriented x3 - Psychiatric Exam Psychiatric exam: Normal Affect, Normal Mood - Skin Skin Exam: Dry, Intact, Normal Color, Warm Additional comments: except where noted above. Assessment and Plan - Assessment and Plan (Free Text) Assessment: Pt is a 57 yr old female s/p panniculitis excision and wound closure POD 5, recovering well Plan: - No further surgical intervention planned at this time. - Pts INR = 1.24, cont bridging with warfarin per primary - PO abx per ID cont for 1 more day - Pt cleared for d/c from surgical standpoint - f/u Dr. Hassan in 1 week - Cont local dressing changes with abd as needed. - Discussed with Dr. Hassan
[2018-04-09 10:15] VITALS: RESP 20; O2SAT 97
--- NOTE | 2018-04-09 12:57 | PN ---
DATE: 04/09/2018 Rivka Pierce is seen on the floor. The wounds are stable, improved and healing. From my point of view, the patient to be discharged with local care. I understand that she is having a little trouble walking and Physical Therapy suggested TCU, which is acceptable to me. When discharged, I need to see her in about a week, but in general she is doing very well. Scott Hassan MD
[2018-04-09] MEDS: Non Formulary Medication (Vitamin B Complex [Super B-50 Complex] 1 CAP) PO SCH (14:49)
[2018-04-10 07:01] LABS: INR 1.48 (0.93-1.08); PROTHROMBIN TIME 17.1 SECONDS (9.4-12.5)
[2018-04-10 07:04] LABS: BASO # 0.02 K/mm3 (0.0-2.0); BASO % 0.3 % (0.0-3.0); EOS # 0.3 (0.0-0.7); EOS % 5.2 % (1.5-5.0); GRAN # 3.57 (1.4-6.5); GRAN % 54.1 % (50.0-68.0); HEMOGLOBIN 10.5 g/dL (12.0-16.0); LYMPH % 30.7 % (22.0-35.0); MEAN CELL VOLUME 88.6 fl (80.0-105.0); MEAN CORPUSCULAR HEMOGLOBIN 29.2 pg (25.0-35.0); MEAN PLATELET VOLUME 9.2 fl (7.0-11.0); MONO # 0.6 (0.1-0.6); MONO % 9.7 % (1.0-6.0); RBC 3.59 10^6/uL (3.5-6.1); RED CELL DISTRIBUTION WIDTH 15.8 % (11.5-14.5); WHITE BLOOD COUNT 6.6 10^3/ul (4.5-11.0)
[2018-04-10 07:05] LABS: ALB/GLOB RATIO 0.9 (1.1-1.8); ALBUMIN 3.1 g/dL (3.0-4.8); ALT/SGPT 28 U/L (7-56); AST/SGOT 26 U/L (14-36); BLOOD UREA NITROGEN 28 mg/dL (7-21); CALCIUM 8.8 mg/dL (8.4-10.5); GFR AFRICAN-AMERICAN > 60; GFR NON-AFRICAN AMERICAN > 60
[2018-04-10] MEDS: oxyCODONE 5 mg Immediate Release Tab PO PRN (07:31)
[2018-04-10 07:53] VITALS: BP 137/87; PULSE 78; TEMP 97.9
[2018-04-10] MEDS: Insulin Reg-LOW-Coverage SC SCH ×2 (07:58→11:36)
[2018-04-10] MEDS: Cefpodoxime (Vantin) 200 mg Tab PO SCH (09:10)
[2018-04-10] MEDS: Non Formulary Medication (Vitamin B Complex [Super B-50 Complex] 1 CAP) PO SCH (09:11)
[2018-04-10] MEDS: (Fluticasone Furoate [Arnuity Ellipta] 1 PUFF) IH SCH (09:12)
--- NOTE | 2018-04-10 09:16 | PN ---
SUBJECTIVE: The patient was seen and examined at bedside on the remote telemetry hinkle. No acute events overnight. She remains afebrile and hemodynamically stable and is pending discharge to home today. OBJECTIVE: VITAL SIGNS: Temperature 97.9, pulse 78, blood pressure 137/87, respiratory rate 20, oxygen saturation 97% on room air. GENERAL: Morbidly obese woman, sitting up in her chair, in no apparent distress. HEENT: PERRL, EOMI. No scleral icterus. No conjunctival pallor. NECK: No JVD. LUNGS: Clear to auscultation. CARDIOVASCULAR: Regular rate and rhythm. Normal S1 and S2. ABDOMEN: Obese. Normoactive bowel sounds. Soft, nontender and nondistended. Surgical dressing in place. EXTREMITIES: Trace lower extremity edema bilaterally. NEUROLOGIC: Awake, alert and oriented x 3. No focal motor deficits. LABORATORY DATA: WBC 6.6, hemoglobin 10.5, hematocrit 32, platelets 256. Chemistry reviewed and unremarkable. INR 1.48. ASSESSMENT: The patient is a 57 year old woman with multiple medical comorbidities including morbid obesity and a chronic nonhealing abdominal wall wound who presented for electively scheduled surgical intervention and is now s/p OR debridement s/p removal of wound VAC and pending discharge home. PLAN: 1. Cellulitis of the abdomen with stage II pressure ulcer s/p OR debridement s/ p wound VAC. Continue with postop care as per Dr. Hassan and the surgical team. Input from Dr. Gambino appreciated. The patient will complete an additional 1 week course of Linezolid 600 mg p.o. b.i.d. and Vantin 200 mg p.o. q. 12 hours. 2. Dilated cardiomyopathy with an ejection fraction of 30%. Continue with current medications. 3. History of DVT and PE. Continue Coumadin 6 mg p.o. daily. 4. Hypertension. Continue current medications. 5. Iron-deficiency anemia. Continue Feosol 324 mg p.o. b.i.d. 6. NIDDM. Continue medium-dose insulin sliding scale for coverage. 7. Anxiety disorder. Continue Xanax 0.25 mg p.o. daily. 8. COPD. Continue supplemental oxygen and bronchodilators as needed. 9. Morbid obesity. 10. Prophylaxis. GI prophylaxis is not indicated as the patient is eating. The patient remains on Coumadin thus DVT prophylaxis is not indicated. CODE STATUS: Full code. Jorge Nguyen MD ISMAEL
--- NOTE | 2018-04-10 10:15 | OP ---
PROCEDURE DATE: 04/04/2018 PREOPERATIVE DIAGNOSIS: Abdominal wall abscess. POSTOPERATIVE DIAGNOSIS: Abdominal wall abscess. OPERATION PERFORMED: Excision. DESCRIPTION OF PROCEDURE: In the operating room, the patient was identified by name, name of the procedure, laterality, and my laura. The area was prepped with Betadine and then draped and after the successful timeout, the wound on the left abdominal wall pannus was marked with methylene blue. The entire area was then excised in a wide excision of the exposed tissue. This was going down deep into the fascia and then circumferentially using cautery after the incision was made . There was considerable amount of bleeding in the lateral side. Several large vessels were identified and clamped and tied. The entire area was then removed to identify huge flaps above and below. The incision was closed with mattress stitches of Vicryl and then the subcutaneous tissue with smaller Vicryl and the skin was closed with mattress stitches of 2-0 nylon in both . This was done in a mattress fashion to close the incision very nicely. Aquilino was placed, the area was dressed, and the patient was taken to the recovery room in good condition after sponge and needle counts declared correct. Scott Hassan MD
--- NOTE | 2018-04-10 10:44 | CP.PCM.PN ---
Subjective - Date & Time of Evaluation Date of Evaluation: 04/10/18 Time of Evaluation: 10:40 - Subjective Subjective: General Surgery Progress Note for: Dr. Hassan Pt was seen and examined this morning at bedside. Pt had no acute overnight events per nursing. Pt denies fever, chills, nausea, or vomiting. She admits to some drainage, and dressings were changed bedside. She is ambulating well and expresses desire to go home today. Objective - Vital Signs/Intake and Output Vital Signs (last 24 hours): Temp Pulse Resp BP Pulse Ox 97.9 F 78 20 137/87 97 04/10/18 07:52 04/10/18 09:11 04/10/18 07:52 04/10/18 09:11 04/10/18 07:52 Intake and Output: 04/10/18 04/10/18 06:59 18:59 Intake Total 120 Balance 120 - Medications Medications: Current Medications Alprazolam (Xanax) 0.25 mg PO Q6H PRN; Protocol PRN Reason: Anxiety Stop: 04/11/18 13:56 Last Admin: 04/09/18 15:57 Dose: 0.25 mg Carvedilol (Coreg) 3.125 mg PO BID [facility] Last Admin: 04/10/18 09:11 Dose: 3.125 mg Cefpodoxime Proxetil (Vantin) 200 mg PO Q12 FIONA PRN Reason: Protocol Stop: 04/15/18 22:01 Last Admin: 04/10/18 09:10 Dose: 200 mg Docusate Sodium (Colace) 100 mg PO BID [facility] Last Admin: 04/10/18 09:10 Dose: 100 mg Ferrous Sulfate (Feosol) 324 mg PO BID [facility] Last Admin: 04/10/18 09:10 Dose: 324 mg Hydrochlorothiazide (Microzide) 12.5 mg PO DAILY [facility] Last Admin: 04/10/18 09:11 Dose: 12.5 mg Insulin Human Regular (Humulin R Low) 0 units SC ACHS [facility] PRN Reason: Protocol Last Admin: 04/10/18 07:58 Dose: Not Given Linezolid (Zyvox) 600 mg PO BID [facility] PRN Reason: Protocol Stop: 04/15/18 10:01 Last Admin: 04/10/18 09:10 Dose: 600 mg Lisinopril (Zestril) 10 mg PO DAILY [facility] Last Admin: 04/10/18 09:11 Dose: 10 mg Non-Formulary Medication (Vitamin B Complex [Super B-50 Complex]) 1 cap PO DAILY [facility] Last Admin: 04/10/18 09:11 Dose: Not Given (Fluticasone Furoate [Arnuity Ellipta] 1 Puff) 1 puff IH QAM [facility] Last Admin: 04/10/18 09:12 Dose: 1 puff (Umeclidinium Brm/Vilanterol Tr [Anoro Ellipta 62.5-25 Mcg Inh] 1 puff IH QAM [facility] Last Admin: 04/10/18 09:12 Dose: 1 puff Nystatin (Mycostatin Cream) 0 ea TOP DAILY [facility] Last Admin: 04/09/18 10:40 Dose: 1 appful Ondansetron HCl (Zofran Inj) 4 mg IVP ONCE PRN PRN Reason: Nausea/Vomiting Oxycodone HCl (Oxycodone Immediate Release Tab) 5 mg PO Q6H PRN PRN Reason: Pain, severe (8-10) Last Admin: 04/10/18 07:31 Dose: 5 mg Sennosides (Senokot Tab) 17.2 mg PO HS [facility] Last Admin: 04/09/18 21:48 Dose: 17.2 mg Warfarin Sodium (Coumadin) 6 mg PO 1800 FIONA PRN Reason: Protocol Last Admin: 04/09/18 17:48 Dose: 6 mg - Labs Labs: 04/10/18 06:20 04/10/18 06:20 PT 17.1 SECONDS (9.4-12.5) H 04/10/18 06:20 INR 1.48 (0.93-1.08) H 04/10/18 06:20 APTT 33.0 Seconds (25.1-36.5) 04/06/18 07:00 - Constitutional Appears: Well, Non-toxic, No Acute Distress - Head Exam Head Exam: ATRAUMATIC, NORMOCEPHALIC - Eye Exam Eye Exam: EOMI, Normal appearance - Respiratory Exam Respiratory Exam: NORMAL BREATHING PATTERN. absent: Accessory Muscle Use, Respiratory Distress - Cardiovascular Exam Cardiovascular Exam: +S1, +S2 - GI/Abdominal Exam GI & Abdominal Exam: Soft, Normal Bowel Sounds. absent: Distended, Firm, Guarding, Rigid, Tenderness Additional comments: Linear incision present in LLQ with madhuri and retention sutures in place. No surrounding erythema or purulent discharge noted around incision. Small area of erythema noted under pannicular skin fold on LLQ. Nystatin cream applied to area. - Neurological Exam Neurological Exam: Alert, Awake, Normal Gait, Oriented x3 - Psychiatric Exam Psychiatric exam: Normal Affect, Normal Mood - Skin Skin Exam: Dry, Intact, Normal Color, Warm Additional comments: except where noted above. Assessment and Plan - Assessment and Plan (Free Text) Assessment: Pt is a 57 yr old female s/p panniculitis excision and wound closure POD 6, recovering well Plan: - Surgically cleared for d/c - Apply nystatin cream under abdomen skin fold. - Ok to shower - Dressing change daily with gauze and tape - Follow up with Dr. Hassan in 1 week. Please call his office to make an appointment - Discussed with Dr. Hassan
--- NOTE | 2018-04-10 13:20 | PN ---
DATE: 04/10/2018 SUBJECTIVE: The patient is seen earlier today in room 369, bed 2. No fevers. No chills. No nausea. No vomiting. PHYSICAL EXAMINATION: VITAL SIGNS: Temperature is 98, blood pressure is 130/80, respiratory rate of 20, heart rate of 78. HEENT: Examination is unremarkable. NECK: Supple. LUNGS: Have decreased breath sounds. HEART: Normal S1, S2. ABDOMEN: Soft, nontender. LABORATORY DATA: Reveals white count is 6.6. Chemistries are noted. Microbiology is reviewed. ASSESSMENT AND PLAN: This is a 57-year-old female with abdominal wound infection and panniculitis, status post debridement, wound closure, postoperative day #6 and now with diabetes, hypertension, morbid obesity, body mass index of 44, now on p.o. cefpodoxime and p.o. Zyvox. Patient will be possibly discharge today. We will follow with you. She is to follow up with me as an outpatient. She was given an appointment to come as an outpatient. Brock Gambino MD
--- NOTE | 2018-04-10 23:07 | PN ---
DATE: 04/09/2018 SUBJECTIVE: The patient was seen yesterday. Doing well. No fevers. No chills. PHYSICAL EXAMINATION: VITAL SIGNS: Temperature is 98, blood pressure is 120/70, respiratory rate of 18. HEENT: Unremarkable. NECK: Supple. LUNGS: Have decreased breath sounds. HEART: Normal S1, S2. ABDOMEN: Soft. LABORATORY DATA: Noted. ASSESSMENT AND PLAN: This is a 57-year-old female who was seen earlier with abdominal wound infection, panniculitis, status post debridement, wound closure and the patient was on Zyvox and cefpodoxime as of today and yesterday, was being treated for possible discharge. Brock Gambino MD
== END 2018-04-10 11:46 | disposition home or self-care (01) | DRG 571 ==
LOC: SDS 10:14 → 3RNO 13:47
PROVIDERS: ADMIT Student in an Organized Health Care Education/Training Program; ATTEND Student in an Organized Health Care Education/Training Program
PROC: 0JB80ZZ Excision of Abdomen Subcutaneous Tissue and Fascia, Open Approach (ICD-10-PCS; principal; 2018-04-04 08:45)
DX: L02.211 Cutaneous abscess of abdominal wall (principal); I42.0 Dilated cardiomyopathy; Z68.41 Body mass index [BMI] 40.0-44.9, adult; M79.3 Panniculitis, unspecified; I10 Essential (primary) hypertension; E11.9 Type 2 diabetes mellitus without complications; E66.01 Morbid (severe) obesity due to excess calories; J44.9 Chronic obstructive pulmonary disease, unspecified; L03.311 Cellulitis of abdominal wall; L89.892 Pressure ulcer of other site, stage 2; D50.9 Iron deficiency anemia, unspecified; F41.9 Anxiety disorder, unspecified; Z86.718 Personal history of other venous thrombosis and embolism; Z86.711 Personal history of pulmonary embolism; Z79.01 Long term (current) use of anticoagulants